=== PATIENT | male | born 1955 | race Caucasian/White ===

== ENCOUNTER 2016-05-01 02:26 | Inpatient (IN) ==
[2016-05-01] MEDS ORDERED: methylPREDNISolone SOD SUC 125 MG/2 ML VIAL IV STA (02:49)
[2016-05-01] MEDS ORDERED: SODIUM CHLORIDE 0.9% 500 ML IV STA (02:49)
[2016-05-01] MEDS ORDERED: LEVOFLOXACIN INJ 500 MG in PREMIX 1 EACH IV STA (02:49)
[2016-05-01] MEDS ORDERED: ALBUTEROL 2.5 MG/3 ML NEB RESP TX ONE (02:51)
[2016-05-01] MEDS ORDERED: LEVOFLOXACIN INJ 100 ML IV ONE (02:53)
--- NOTE | 2016-05-01 03:03 | Emergency Department Note ---
I, Leila Mclain, am scribing for, and in the presence of, Victoriano Alvarez MD 02:55. IAntonio Robert M, MD, personally performed the services described in this documentation, ascribed by Leila Mclain in my presence, and it is both accurate and complete . Arrival - Arrival Chief Complaint: Shortness of Breath Stated Complaint: COUGH ED Nursing Triage Note: PT ARRIVES VIA EMS WITH COMPLAINTS OF WAKING UP TONIGHT SOB AND FEELING LIKE HE CAN NOT COUGH UP MUCUS IN CHEST. STATES THAT HE HAS PAIN IN RIGHT SIDE OF CHEST FROM COUGH. PT RECENTLY TREATED AT [facility] FOR PNEUMONIA AND ACCORDING TO PT WAS TOLD BY DR. CABA TO COME DIRECTLY TO ED IF HE STARTED HAVING ANY TROUBLE. PT DENIES FEVER SINCE DISCHARGED FROM HOSPITAL. Mode of Arrival: Stretcher Limitations: No Limitations Source: Patient Time Seen by Provider: 05/01/16 02:45 - History of Present Illness HPI Narrative: Pt is a 60 y/o male that was brought to the ED via EMS with c/o SOB that occurred upon waking up this morning. Pt has associated sxs of cough with green mucus and difficulty talking. Pt reports he has a Hx of COPD. Pt states he thinks he may have pneumonia again. He reports he does have a nebulizer at home he uses. Pt's PCPs are Dr. Adair and Dr. Caba. Pt denies being a smoker. No other complaints/pain in ED. Onset (ago): hour(s) Consistency: constant Severity: moderate Severity scale (1-10): 5 Quality: other Allergies/Adverse Reactions: Allergies Allergy/AdvReac Type Severity Reaction Status Date / Time No Known Allergies Allergy Verified 04/13/16 04:42 Home Medications: Home Medications Medication Instructions Recorded Confirmed Type Albuterol Sulfate [Proair HFA] 2 puff INH Q4H PRN 04/13/16 05/01/16 History Aspirin [Ecotrin] 81 mg PO DAILY 04/13/16 05/01/16 History Montelukast Tab [Singulair Tab] 10 mg PO BID #60 tablet 04/13/16 05/01/16 Rx Theophylline ER Cap (24 Hr) 400 mg PO BID 04/13/16 05/01/16 History [Clint-24] Tiotropium Inhalation [Spiriva 18 mcg INH DAILY 04/13/16 05/01/16 History Handihaler] predniSONE TAB [PredniSONE] 20 mg PO BID 05/01/16 05/01/16 History Review of System - Review of System 12 point system: reviewed and no additional remarkable complaints except as stated - Review of System Constitutional: Absent: chills, fever Respiratory: Present: cough (cough with green mucus), other (SOB; difficult to talk) Cardiovascular: Absent: chest pain Gastrointestinal: Absent: abdominal pain, nausea, vomiting Skin: Absent: rash Neurological: Absent: headache Psychiatric: Absent: anxiety Medical,Surgical,& Family Hx - Medical History Cardio: History of: Hypertension Respiratory: History of: COPD - Social History Smoking Status: Former smoker Frequency of Alcohol Use: None Type of Drug Use: None Exam Vital Signs: Vital Signs Temperature 97.9 F 05/01/16 02:26 Pulse Rate 116 H 05/01/16 03:09 Respiratory Rate 26 H 05/01/16 03:09 Blood Pressure 134/76 05/01/16 03:08 O2 Sat by Pulse Oximetry 97 05/01/16 03:09 - General General appearance: alert, in no apparent distress - Head Head exam: Present: atraumatic, normocephalic - Eye Eye exam: Present: PERRL, EOMI - ENT ENT exam: Present: mucous membranes moist. Absent: mucous membranes dry - Neck Neck exam: Present: full ROM. Absent: tenderness - Chest Chest inspection: Present: symmetric chest wall rise, other (barrell chest). Absent: tenderness - Respiratory Respiratory exam: Present: wheezes (distant wheezes bilaterally), other (too tachypnic to talk) - Cardiovascular Cardiovascular exam: Present: regular rate, normal rhythm, normal heart sounds - Abdominal Exam Abdominal exam: Present: soft. Absent: tenderness - Extremities Exam Extremities exam: Present: full ROM. Absent: tenderness - Back Exam Back exam: Present: full ROM. Absent: tenderness - Neurological Exam Neurological exam: Present: alert, oriented X3, CN II-XII intact. Absent: motor sensory deficit - Psychiatric Psychiatric exam: Present: normal affect, normal mood - Skin Skin exam: Present: warm, dry Course - Consultations Consultation #1: Dr. Kishore Lanier will evaluate and admit the patient. Time: 03:29 Results - Labs CBC & BMP: 05/01/16 02:56 05/01/16 02:56 Lab Results: I have reviewed the patients labs Labs: Lab Results WBC 22.6 T/CUMM (4-12) H 05/01/16 02:56 RBC 4.61 MC/CUMM (3.8-5.5) 05/01/16 02:56 Hgb 14.5 GM/DL (14.0-18.0) 05/01/16 02:56 Hct 44.2 VOL% (42.0-52.0) 05/01/16 02:56 MCV 95.9 FL (87-102) 05/01/16 02:56 MCH 32 PG (27-34) 05/01/16 02:56 MCHC 32.8 GM/DL (32-36) 05/01/16 02:56 RDW 14.2 % (9.3-17.3) 05/01/16 02:56 Plt Count 320 T/CUMM (130-400) 05/01/16 02:56 MPV 8.8 FL (9.6-12.0) L 05/01/16 02:56 Neut % (Auto) 87.0 % (38.7-73.9) H 05/01/16 02:56 Lymph % (Auto) 4.3 % (21.2-54.2) L 05/01/16 02:56 Newton % (Auto) 7.3 % (1.7-12.7) 05/01/16 02:56 Eos % (Auto) 0.0 % (0.00-10.9) 05/01/16 02:56 Baso % (Auto) 0.2 % (0.0-0.8) 05/01/16 02:56 Neut # (Auto) 19.7 10*3/uL (1.4-7.4) H 05/01/16 02:56 Lymph # (Auto) 1.0 10*3/uL (1.4-4.0) L 05/01/16 02:56 Newton # (Auto) 1.6 10*3/uL (0.11-0.8) H 05/01/16 02:56 Eos # (Auto) 0.0 10*3/uL (0.0-0.87) 05/01/16 02:56 Baso # (Auto) 0.1 10*3/uL (0.0-0.2) 05/01/16 02:56 Immature Gran % 1.2 % 05/01/16 02:56 Nucleated RBC % 0.0 /100WBC 05/01/16 02:56 Immature Gran # 0.27 # 05/01/16 02:56 Nucleated RBCs # 0.00 10*3/uL 05/01/16 02:56 INR 1.1 05/01/16 02:56 PT Patient/Control Mix 11.3 SECS 05/01/16 02:56 Sodium 146 MMOL/L (136-145) H 05/01/16 02:56 Potassium 4.3 MMOL/L (3.5-5.1) 05/01/16 02:56 Chloride 108 MMOL/L (98-107) H 05/01/16 02:56 Carbon Dioxide 26 MMOL/L (21-32) 05/01/16 02:56 Anion Gap 16.3 MMOL/L (5.0-15.0) H 05/01/16 02:56 BUN 15 MG/DL (7-18) 05/01/16 02:56 Creatinine 0.90 MG/DL (0.70-1.30) 05/01/16 02:56 GFR Calculation 86 ML/MIN 05/01/16 02:56 BUN/Creatinine Ratio 16.00 RATIO (6.00-20.00) 05/01/16 02:56 Glucose 169 MG/DL (74-106) H 05/01/16 02:56 Calculated Osmolality 294.6 MOS/KG (273-304) 05/01/16 02:56 Calcium 9.0 MG/DL (8.5-10.1) 05/01/16 02:56 Total Bilirubin 0.40 MG/DL (0.2-1.0) 05/01/16 02:56 AST 15 U/L (0-37) 05/01/16 02:56 ALT 20 U/L (16-61) 05/01/16 02:56 Alkaline Phosphatase 79 U/L (45-117) 05/01/16 02:56 Total Protein 7.0 G/DL (6.4-8.3) 05/01/16 02:56 Albumin 3.2 G/DL (3.4-5.0) L 05/01/16 02:56 Globulin 3.8 G/DL (2.3-3.5) H 05/01/16 02:56 Albumin/Globulin Ratio 0.8 RATIO (1.1-2.2) L 05/01/16 02:56 ABG pH 7.395 (7.35-7.45) 05/01/16 03:00 ABG pCO2 45.1 MM HG (35-48) 05/01/16 03:00 ABG pO2 66.7 MM HG (80-95) L 05/01/16 03:00 ABG HCO3 26.2 MMOL/L (20-26) H 05/01/16 03:00 ABG Total CO2 23.8 MMOL/L (23-27) 05/01/16 03:00 ABG O2 Saturation 93.0 % (95-100) L 05/01/16 03:00 ABG Base Excess 2.2 MMOL/L (-2.5-2.5) 05/01/16 03:00 FiO2 28.00 PERCENT (0-100) 05/01/16 03:00 - EKG EKG results: interpreted by ERMD, WNL, sinus rhythm - Diagnostic Findings Procedure: Chest x-ray: image reviewed by me (lymph service changes. No specific parenchymal opacification) Disposition Clinical Impression: Acute exacerbation of chronic obstructive airways disease Case discussed with: patient Disposition: Still a Patient Condition: Stable Time of Disposition: 03:29
[2016-05-01] MEDS ORDERED: methylPREDNISolone SOD SUC 125 MG/2 ML VIAL ONE (03:05)
[2016-05-01 03:08] LABS: Basophils # 0.1 10*3/uL (0.0-0.2); Basophils % 0.2 % (0.0-0.8); Hematocrit 44.2 VOL% (42.0-52.0); Hemoglobin 14.5 GM/DL (14.0-18.0); Immature Granulocytes % 1.2 %; Immature Granulocytes Absolute 0.27 #; Lymphocytes % 4.3 % (21.2-54.2); Mean Corpuscular HGB Conc 32.8 GM/DL (32-36); Mean Corpuscular Hemoglobin 32 PG (27-34); Mean Corpuscular Volume 95.9 FL (87-102); Mean Platelet Volume 8.8 FL (9.6-12.0); Monocytes # 1.6 10*3/uL (0.11-0.8); Monocytes % 7.3 % (1.7-12.7); Neutrophils # 19.7 10*3/uL (1.4-7.4); Platelet Count 320 T/CUMM (130-400); Red Blood Count 4.61 MC/CUMM (3.8-5.5); Red Cell Distribution Width 14.2 % (9.3-17.3); White Blood Count 22.6 T/CUMM (4-12)
[2016-05-01 03:17] LABS: ABG Base Excess 2.2 MMOL/L (-2.5-2.5); ABG HCO3 26.2 MMOL/L (20-26); ABG PCO2 45.1 MM HG (35-48); ABG PH 7.395 (7.35-7.45); ABG PO2 66.7 MM HG (80-95); ABG TCO2 23.8 MMOL/L (23-27); Allen Test Positive
[2016-05-01 03:18] LABS: INR 1.1; PT Patient Result 11.3 SECS
[2016-05-01 03:26] LABS: Albumin 3.2 G/DL (3.4-5.0); Bilirubin,Total 0.4 MG/DL (0.2-1.0); Osmolality,Calculated 294.6 MOS/KG (273-304); Potassium 4.3 MMOL/L (3.5-5.1)
[2016-05-01 03:29] LABS: Lymphocytes 8 % (20-55); Segmented Neutrophils 84 % (50-85)
[2016-05-01 03:30] LABS: Platelet Estimate Normal
[2016-05-01 03:31] LABS: Total Cells Counted 100
[2016-05-01] MEDS ORDERED: ACETAMINOPHEN 325 MG TABLET PO PRN (03:37)
[2016-05-01] MEDS ORDERED: DOCUSATE SODIUM 100 MG CAPSULE PO PRN (03:37)
[2016-05-01] MEDS ORDERED: ONDANSETRON 4 MG/2 ML VIAL IV PRN (03:37)
[2016-05-01] MEDS ORDERED: ALBUTEROL 1.25 MG/3 ML NEB RESP TX PRN (03:47)
--- NOTE | 2016-05-01 03:59 | Hospitalist History & Physical ---
Assessment and Plan (1) Acute exacerbation of chronic obstructive airways disease Status: Acute Assessment and plan: Plan for this patient will be admitted to our service. We'll scheduled breathing treatments and IV steroids. Will get Dr. Neely to see him. We'll continue his home meds as appropriate. We'll also continue with antibiotics. Patient has had a recent pneumonia. Reevaluate patient in the morning just plans appropriate Current Visit: Yes History of Present Illness Chief complaint: shortness of breath History of present illness: Mr. Rosario is a 60 year old male with past medical history significant for COPD was in his normal state of health until earlier this evening. Patient had been at work and had been feeling generally short of breath but it wasn't too bad. He's been diagnosed COPD for approximately 18 years. He quit smoking 20 [address] ago[address] 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 According to the patient has had a recent pneumonia. Patient went to bed and when he got to go the bathroom he realized he couldn't catch his breath. Patient's checked his O2 sats was 86% on room air. She said this is low for him. She called EMS and they brought him up here for further evaluation. I was consulted to admit the patient Home Medications Medication Instructions Recorded Confirmed Type Albuterol Sulfate [Proair HFA] 2 puff INH Q4H PRN 04/13/16 05/01/16 History Aspirin [Ecotrin] 81 mg PO DAILY 04/13/16 05/01/16 History Montelukast Tab [Singulair Tab] 10 mg PO BID #60 tablet 04/13/16 05/01/16 Rx Theophylline ER Cap (24 Hr) 400 mg PO BID 04/13/16 05/01/16 History [Clint-24] Tiotropium Inhalation [Spiriva 18 mcg INH DAILY 04/13/16 05/01/16 History Handihaler] predniSONE TAB [PredniSONE] 20 mg PO BID 05/01/16 05/01/16 History Allergies Allergy/AdvReac Type Severity Reaction Status Date / Time No Known Allergies Allergy Verified 04/13/16 04:42 Medical,Surgical,& Family Hx - Medical History Cardio: History of: Hypertension Respiratory: History of: COPD - Surgical History Orthopedic Surgeries: Surgical HX of;: Orthopedic Surgery - Family History Family History: Reports;: Family Hypertension - Social History Smoking Status: Former smoker Frequency of Alcohol Use: None Type of Drug Use: None 12 point system: reviewed and no additional remarkable complaints except as stated Exam - Constitutional Vitals: Period Temp Pulse Resp BP Sys/Osman Pulse Ox Last 24 Hr 97.9 F-97.9 F 116-122 21-26 100-147/65-90 93-97 General appearance: under weight - Head Head exam: Present: normal inspection - Eye Eye exam: Present: EOMI Pupils: Present: KAVITA - ENT ENT exam: Present: normal exam - Respiratory Respiratory exam: Present: decreased breath sounds, prolonged expiratory phase. Absent: wheezes - Cardiovascular Cardiovascular exam: Present: tachycardia - GI/Abdominal GI/Abdominal exam: Present: normal bowel sounds - Extremities Exam Extremities exam: Present: normal inspection - Back Exam Back exam: Present: normal inspection - Neurological Exam Neurological exam: Present: alert, oriented X3 - Psychiatric Psychiatric exam: Present: normal affect, normal mood - Skin Skin exam: Present: normal color Results - Labs CBC & BMP: 05/01/16 02:56 05/01/16 02:56
--- NOTE | 2016-05-01 06:02 | XRay Report ---
Exam: XR chest 1V portable Date: 05/01/2016 2:50 AM Indication: Shortness of breath Comparison: 04/13/2016 Technical: AP portable Findings: Heart is normal in size. Patchy area of interstitial density present in the left base and right medial infrahilar region. Bony structures are intact. Dextroconvex leads are present. No pneumothorax present. Oxygen tubing and neck clips are also present superimposing exam and external cardiac leads Impression: 1. Patchy interstitial infiltrates in the bases bilaterally PROCEDURE INTERPRETED AT [facility] DEPARTMENT OF RADIOLOGY Final Report Signed by: Dr. Ayden Grace
[2016-05-01] MEDS ORDERED: ENOXAPARIN 40 MG/0.4 ML SYRINGE ONE (08:51)
[2016-05-01] MEDS ORDERED: methylPREDNISolone SOD SUC 40 MG/1 ML VIAL ONE (08:52)
[2016-05-01] MEDS ORDERED: ASPIRIN CHEW 81 MG TABLET PO ONE (08:52)
[2016-05-01] MEDS ORDERED: PANTOPRAZOLE 40 MG TABLET PO ONE (08:52)
[2016-05-01] MEDS: ENOXAPARIN 40 MG/0.4 ML SYRINGE SUBCUT SCH (08:57)
[2016-05-01] MEDS: ALBUTEROL/IPRATROPIUM 3 ML NEB RESP TX SCH ×3 (08:57→19:10)
[2016-05-01] MEDS: PANTOPRAZOLE 40 MG TABLET PO SCH (08:59)
[2016-05-01] MEDS: ASPIRIN EC 81 MG TABLET PO SCH (08:59)
[2016-05-01] MEDS: methylPREDNISolone SOD SUC 40 MG/1 ML VIAL IV SCH ×3 (09:01→20:48)
[2016-05-01] MEDS: THEOPHYLLINE ER (24 HR) 400 MG CAPSULE PO SCH ×2 (09:46→20:48)
[2016-05-01] MEDS: MONTELUKAST 10 MG TABLET PO SCH ×2 (09:47→20:49)
[2016-05-01] MEDS ORDERED: PHENOL 1.4% THROAT SPRAY 177 ML BOTTLE PO PRN (12:35)
--- NOTE | 2016-05-01 14:06 | Pulmonology Consult Note ---
History of Present Illness Chief complaint: Acute exacerbation of COPD. Acute pneumonia. History of present illness: Mr. Rosario is a 60 year old white male whom I been asked to see in pulmonary consultation for evaluation and treatment. This is a patient well-known to me. This year the patient's had 2 hospitalizations at [facility] in [place] by Dr. Adair. He has been seen twice in my office in the last month or so. He has had recurrent bronchitis and bronchospasm his sputum is green is hard to mobilize he also has a terrific cough. After his last visit to my office he said he cleared up and he did very well until he finished his antibiotics and then he had recurrent symptoms. 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 He denies dysphagia or reflux. He has had near syncope with standing up suddenly with this present illness. He has had no cardiac angina palpitations The remainder the review of systems is negative Allergies none Home medicines. See below Past history. COPD. Asthma. Chronic allergic sinusitis. Degenerative joint disease with arthritis in both knees. There is a past history of tobacco abuse. The patient stopped smoking in 2009. In the past he had a leukemoid reaction secondary to steroids. Family history. Positive high blood pressure and diabetes. Social history. Quit smoking in 2009. . Does not use alcohol. 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 His job requires he gets up at 1 AM daily. Chest x-ray. Small heart. Top normal pulmonary arteries. No hilar adenopathy. Mediastinum is normal. Lung mcleod are hyperinflated. There are increased interstitial markings in both bases probably early pneumonia ABGs on FiO2 28% shows a pH 7.395. PCO2 is 45. PO2 66.7. Bicarb is 26. Lab. Creatinine is 0.9. BUN is 15. Electrolytes are normal. Glucose is 169. Calcium alkaline phosphorus transaminases total bilirubin total protein are normal albumin is slightly low at 3.2 and globulins are slightly up at 3.8. White blood cell count is 22,600 with 87 segs. H&H is 14.5/44.2 with normal indices normal red blood cell distribution with. Platelets are 320,000. MPV is low at 8.8. Labs been reviewed. Medicines have been reviewed. Physical exam. Vital signs. See below Psychiatric. Oriented 3 Neurologic. Cranial nerves are intact. Long track motor function is intact. Gait is normal. Pupils irises sclera conjunctiva normal. Face is symmetrical. Salivary glands are normal. Nasal turbinates are congested. Lips and tongue are normal. Neck. Symmetrical. No meningismus. Lymphatics. No submandibular cervical or supraclavicular adenopathy. Chest. Hyperinflated. Pleuritic pain over the posterior left lower chest. Inspiratory squeaks in that area wheezes and squeaks over the left upper lung and over the right upper lung. Chest is hyperinflated with prolonged expiration. Heart. No gallop Abdomen. Positive bowel sounds Extremities. No edema. Nothing to suggest deep venous thrombophlebitis Skin of the face and hands showed no cancerous infectious lesions no other areas of the skin were examined. Musculoskeletal no gross abnormalities of the cervical thoracic lumbar spine. The remainder the physical exam is negative Impression. 1. Acute exacerbation of COPD/asthma. Refractory to outpatient treatment 2. Probable bibasilar bacterial pneumonia 3. High blood pressure 4. Degenerative joint disease 5. Past history tobacco abuse stopped smoking in 2009 Plan. 1. I agree with your medicines. 2. I have added Fortaz for additional gram-negative coverage since this is an outpatient treatment failure and the patient's had 2 hospitalizations in March of this year. 3. This patient probably has retention of secretions that he cannot mobilize. Once we get him over his bronchospasm and he becomes more stable he might very well benefit from bronchoscopy. I have discussed this with him and he is agreeable. 4. Sputum for Gram stain culture and sensitivity 5. Cold agglutinins 6. Legionella titer 7. Follow-up chest x-ray tomorrow 8. Agree with inhalation therapy. Will add Mucinex 600 p.o. twice daily. 9. See Home Medications Medication Instructions Recorded Confirmed Type Albuterol Sulfate [Proair HFA] 2 puff INH Q4H PRN 04/13/16 05/01/16 History Aspirin [Ecotrin] 81 mg PO DAILY 04/13/16 05/01/16 History Montelukast Tab [Singulair Tab] 10 mg PO BID #60 tablet 04/13/16 05/01/16 Rx Theophylline ER Cap (24 Hr) 400 mg PO BID 04/13/16 05/01/16 History [Clint-24] Tiotropium Inhalation [Spiriva 18 mcg INH DAILY 04/13/16 05/01/16 History Handihaler] Fluticasone/Salmeterol 500-50 1 puff INH BID 05/01/16 05/01/16 History [Advair 500-50] Ipratropium/Albuterol Inhaler 1 puff INH QID 05/01/16 05/01/16 History [Combivent Respimat Inhaler] predniSONE TAB [PredniSONE] 20 mg PO BID 05/01/16 05/01/16 History Allergies Allergy/AdvReac Type Severity Reaction Status Date / Time No Known Allergies Allergy Verified 04/13/16 04:42 Exam (Pulmonay) H&P - Constitutional Vitals: Period Temp Pulse Resp BP Sys/Osman Pulse Ox Last 24 Hr 99.3 F 89-112 18-26 100-136/65-88 95-98 Medical,Surgical,& Family Hx - Medical History Cardio: History of: Hypertension Respiratory: History of: COPD - Surgical History Abdominal Surgeries: Patient denies: Abdominal Surgery Orthopedic Surgeries: Surgical HX of;: Orthopedic Surgery - Family History Family History: Reports;: Family Hypertension - Social History Smoking Status: Former smoker Frequency of Alcohol Use: None Type of Drug Use: None Results - Labs CBC & BMP: 05/01/16 02:56 05/01/16 02:56 Quality Measures - Stroke Symptom Onset Unknown: No
--- NOTE | 2016-05-01 17:59 | EKG Report ---
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
[2016-05-02] MEDS: ALBUTEROL/IPRATROPIUM 3 ML NEB RESP TX SCH ×4 (00:10→19:30)
[2016-05-02] MEDS: methylPREDNISolone SOD SUC 40 MG/1 ML VIAL IV SCH ×4 (03:43→20:16)
[2016-05-02] MEDS: LEVOFLOXACIN INJ 750 MG in PREMIX 1 EACH IV SCH (06:02)
--- NOTE | 2016-05-02 07:38 | XRay Report ---
Exam: XR chest 2V Date: 05/02/2016 656 AM Indication: Cough shortness of breath pneumonia Comparison: 05/01/2016 Technical: AP portable Findings: Component of underlying COPD is present. Improving aeration is present in the infrahilar regions and basilar areas bilaterally. Scarring is present. Mediastinum is intact. There is bony demineralization of the thoracic spine with calcification in of the costochondral cartilage present. Impression: 1. COPD 2. No definite consolidating infiltrates are present. Mild scarring in the perihilar regions. The basilar regions have improved when compared to the previous study PROCEDURE INTERPRETED AT [facility] DEPARTMENT OF RADIOLOGY Final Report Signed by: Dr. Ayden Grace
--- NOTE | 2016-05-02 08:21 | Ultrasound Report ---
Exam: US abdomen Date:05/02/2016 659 AM Indication: Abdominal pain Comparison: None Findings: Liver: Approximately 14 cm. The hepatic and portal veins are patent. No focal abnormalities present. Gallbladder: No obvious stones. Small amount of pericholecystic fluid and gallbladder wall thickening is present. No discrete sludge within the gallbladder clearly seen however CBD: 3.4 mm Pancreas: Obscured Kidneys Right kidney: 10.0 x 4.2 x 5.3 cm no focal amounts is present. No hydronephrosis or perinephric fluid collections Left kidney: 10.1 x 5.4 x 4.1 cm with a 12 x 10 x 9.7 mm cyst suspected no hydronephrosis or perinephric fluid collection Aorta IVC: Obscured Spleen: 6.4 x 1.7 x 2.4 cm without abnormalities Ascites: None Impression: 1. Poor visualization of midline structures 2. Thickened gallbladder wall suggest the possibility of a cholecystitis 3. Tiny cyst left kidney The Ultrasound images were captured and stored. PROCEDURE INTERPRETED AT [facility] DEPARTMENT OF RADIOLOGY Final Report Signed by: Dr. Ayden Grace
[2016-05-02] MEDS: PANTOPRAZOLE 40 MG TABLET PO SCH (09:30)
[2016-05-02] MEDS: MONTELUKAST 10 MG TABLET PO SCH ×2 (09:30→20:17)
[2016-05-02] MEDS: THEOPHYLLINE ER (24 HR) 400 MG CAPSULE PO SCH ×2 (09:30→20:17)
[2016-05-02] MEDS: ASPIRIN EC 81 MG TABLET PO SCH (09:30)
[2016-05-02] MEDS: ENOXAPARIN 40 MG/0.4 ML SYRINGE SUBCUT SCH (09:30)
[2016-05-02 09:37] LABS: Basophils # 0.1 10*3/uL (0.0-0.2); Basophils % 0.2 % (0.0-0.8); Hematocrit 39.5 VOL% (42.0-52.0); Immature Granulocytes % 3.9 %; Immature Granulocytes Absolute 1.12 #; Lymphocytes # 0.8 10*3/uL (1.4-4.0); Lymphocytes % 2.8 % (21.2-54.2); Mean Corpuscular HGB Conc 32.9 GM/DL (32-36); Mean Corpuscular Hemoglobin 31 PG (27-34); Mean Corpuscular Volume 94.5 FL (87-102); Mean Platelet Volume 9.1 FL (9.6-12.0); Monocytes # 0.9 10*3/uL (0.11-0.8); Monocytes % 3.3 % (1.7-12.7); Neutrophils # 25.7 10*3/uL (1.4-7.4); Neutrophils % 89.8 % (38.7-73.9); Platelet Count 335 T/CUMM (130-400); Red Blood Count 4.18 MC/CUMM (3.8-5.5); Red Cell Distribution Width 14.1 % (9.3-17.3); White Blood Count 28.6 T/CUMM (4-12)
[2016-05-02 09:57] LABS: Band Neutrophils 1 % (0-10); Hypochromasia 1+; Lymphocytes 4 % (20-55); Segmented Neutrophils 94 % (50-85); Total Cells Counted 100
[2016-05-02 09:58] LABS: Platelet Estimate Normal
[2016-05-02 10:10] LABS: Alanine Aminotransferase 16 U/L (16-61); Albumin 2.8 G/DL (3.4-5.0); Alkaline Phosphatase 74 U/L (45-117); Aspartate Amino Transferase 11 U/L (0-37); Bilirubin,Total < 0.39 MG/DL (0.2-1.0); Blood Urea Nitrogen 13 MG/DL (7-18); Calcium 9.1 MG/DL (8.5-10.1); Glucose 129 MG/DL (74-106); Osmolality,Calculated 289.7 MOS/KG (273-304); Potassium 4.2 MMOL/L (3.5-5.1); Sodium 145 MMOL/L (136-145); Total Protein 6.6 G/DL (6.4-8.3)
[2016-05-02] MEDS: DOCUSATE SODIUM 100 MG CAPSULE PO SCH ×2 (11:10→20:17)
--- NOTE | 2016-05-02 11:25 | Pulmonology Progress Note ---
Pulmonary - PN: Subj Interval history: Steven Reed, ANP-BC, GNP-BC, acting as scribe for Dr. Ayden Schneider Mr. Rosario is a 60-year-old white male who was seen in initial pulmonary consultation on 05/01/2016. At that time, our impressions were: 1. Acute exacerbation of COPD/asthma. Refractory to outpatient treatment 2. Probable bibasilar bacterial pneumonia 3. High blood pressure 4. Degenerative joint disease 5. Past history tobacco abuse stopped smoking in 200905/02/2016. The patient was seen today along with his . At admission the patient had complaints of abdominal pain. The patient and his report that he has had abdominal pain after eating for the past several weeks. Ultrasound of the abdomen was done this morning and showed a thickened gallbladder wall suggesting the possibility of cholecystitis. We have consulted Dr. Ji for evaluation. We have also ordered a HIDA scan, amylase and lipase. He has had a long-term complaint of constipation. He states that his stools are hard and he has to strain to defecate. We will start Colace 100mg PO BID. He has had recurrent/unresolved pneumonia since March. Today we had a long discussion with the patient and his regarding the need for evaluation with bronchoscopy. They are agreeable, but he will most likely not be ready for this from a pulmonary standpoint until Saturday. We have tentatively scheduled it for Saturday at 0800. He complained about the cardiac diet this morning. Of note, he also complained of some orthostatic symptoms. We have changed his diet to a regular one as he consumes salt at home and this might symptomatically help his orthostasis. Medications have been reviewed. Labs have been reviewed. White count is 28,600 with 89.8% segs; H&H 13.0/39.5; PLT count 335,000; creatinine 0.80, BUN 13, electrolytes are normal; LFTs WNL Microbiology: One set of blood cultures is growing a gram positive cocci and is most likely a contaminant. Sputum gram stain showed few gram positive cocci, few gram negative rods, rare fungal elements, and rare gram positive rods. Culture, however, is not growing any organism thus far. Exam (Progress Note) - Constitutional Vitals: Period Temp Pulse Resp BP Sys/Osman Pulse Ox Last 24 Hr 97.8 F-99.3 F 81-96 18-20 100-129/70-81 95-99 Exam: Chest is hyperinflated with less wheeze; expiration is prolonged and somewhat incomplete Heart no gallop Abd is nontender to palpation and nondistended; BS positive x 4 Ext with nothing to suggest acute DVT Psych oriented x 3 Neuro long tract motor function is intact Plan: Consult Dr. Ji regarding the patient's US. HIDA scan, amylase, and lipase. Theophylline level in the morning. Change to a regular diet. Have tentatively scheduled him for FOB on 05/04/16 at 0800. Colace 100mg PO BID. See orders. Results - Labs CBC & BMP: 05/02/16 09:15 05/02/16 09:15
--- NOTE | 2016-05-02 11:46 | Gastrointestinal Consult Note ---
<Hanna Chappell - Last Filed: 05/02/16 11:40> Assessment and Plan (1) Abdominal pain Status: Acute Assessment and plan: 05/02-Several month hx of abd pain, with nausea. Also reports early satiety with eating, constipation, and dark stools at times. US of abdomen noted for possible cholecystitis. HIDA pending for the morning. LFTs WNL. No reports of stones, sludge on imaging. Plan and addendum to follow by Dr Ji. Current Visit: Yes History of Present Illness Chief complaint: Abd pain, early satiety History of present illness: Mr. Rosario is a 60 year old male who presented to the hospital with SOB. Pt has a history of COPD and has had reoccurring pneumonia per patient. He states that his SOB seemed to worsen this week and presented to the ER for evaluation. Pt states that he has also had some abdominal pain. States he has had this off and on for several months however it has become more frequent and intense the last several weeks. States the pain is in the RUQ and does not radiate. He has associated nausea with this but no vomiting. He has days when he has a good appetite and seems to eat fairly well and other days he doesnt want to eat at all. He also has some complaints of early satiety. States he eats 3-4 bites and feels like he is full denying any problems with swallowing or pain with swallowing. States he has never had endoscopy in the past. He states he has noted that his stools have been dark at times however states they will return to normal and then back to dark. He denies any NSAID use. States he has had some weight loss, approximately 20 pounds but states this has been over a long period of time and relates this to his COPD more so. He has had some problems with constipation as well. He was found on admission on US to have thickened gallbladder wall with possibility of cholecystitis with no stones or sludge, CBD 3.4mm. He is noted to have normal LFTs. He is scheduled for HIDA scan tomorrow and a FOB on saturday. Lipase is 91. Home Medications Medication Instructions Recorded Confirmed Type Albuterol Sulfate [Proair HFA] 2 puff INH Q4H PRN 04/13/16 05/01/16 History Aspirin [Ecotrin] 81 mg PO DAILY 04/13/16 05/01/16 History Montelukast Tab [Singulair Tab] 10 mg PO BID #60 tablet 04/13/16 05/01/16 Rx Theophylline ER Cap (24 Hr) 400 mg PO BID 04/13/16 05/01/16 History [Clint-24] Tiotropium Inhalation [Spiriva 18 mcg INH DAILY 04/13/16 05/01/16 History Handihaler] Fluticasone/Salmeterol 500-50 1 puff INH BID 05/01/16 05/01/16 History [Advair 500-50] Ipratropium/Albuterol Inhaler 1 puff INH QID 05/01/16 05/01/16 History [Combivent Respimat Inhaler] predniSONE TAB [PredniSONE] 20 mg PO BID 05/01/16 05/01/16 History Allergies Allergy/AdvReac Type Severity Reaction Status Date / Time No Known Allergies Allergy Verified 04/13/16 04:42 Medical,Surgical,& Family Hx - Medical History Cardio: History of: Hypertension Respiratory: History of: COPD - Surgical History Abdominal Surgeries: Patient denies: Abdominal Surgery Orthopedic Surgeries: Surgical HX of;: Orthopedic Surgery - Family History Family History: Reports;: Family Hypertension - Social History Smoking Status: Former smoker Frequency of Alcohol Use: None Type of Drug Use: None 12 point system: reviewed and no additional remarkable complaints except as stated - Constitutional Constitutional: Present: as per HPI, weight loss - EENT Eyes: Present: as per HPI Ears: Present: as per HPI Nose, mouth and throat: Present: as per HPI - Cardiovascular Cardiovascular: Present: as per HPI - Respiratory Respiratory: Present: as per HPI, dyspnea - Gastrointestinal Gastrointestinal: Present: as per HPI, abdominal pain, constipation, early satiety, nausea - Genitourinary Genitourinary: Present: as per HPI - Musculoskeletal Musculoskeletal: Present: as per HPI - Neurological Neurological: Present: as per HPI - Psychiatric Psychiatric: Present: as per HPI - Endocrine Endocrine: Present: as per HPI - Hematologic/Lymphatic Hematologic/Lymphatic: Present: as per HPI Exam - Constitutional Vitals: Period Temp Pulse Resp BP Sys/Osman Pulse Ox Last 24 Hr 97.8 F-99.3 F 81-96 18-20 110-129/70-81 95-99 General appearance: normal weight, no acute distress - Head Head exam: Present: normal inspection, normocephalic - Eye Eye exam: Present: other (lids and conjuncitva unremarkable). Absent: scleral icterus - ENT ENT exam: Present: normal exam, normal oropharynx - Neck Neck exam: Present: normal inspection - Respiratory Respiratory exam: Present: clear to auscultation bilaterally. Absent: rales, rhonchi, wheezes - Cardiovascular Cardiovascular exam: Present: regular rate and rhythm. Absent: diastolic murmur , JVD, systolic murmur - GI/Abdominal GI/Abdominal exam: Present: normal bowel sounds, soft. Absent: ascites, distended, mass, organomegaly, tenderness - Extremities Exam Extremities exam: Present: normal inspection, full ROM - Back Exam Back exam: Present: normal inspection - Neurological Exam Neurological exam: Present: alert, oriented X3 - Psychiatric Psychiatric exam: Present: normal affect, normal mood - Skin Skin exam: Present: normal color, warm, dry Results - Labs CBC & BMP: 05/02/16 09:15 05/02/16 09:15 Lab Results: I have reviewed the past 24 hour labs - Diagnostic Findings Procedure: Ultrasound: report reviewed by me Quality Measures - Stroke Symptom Onset Unknown: No <Trey Ji - Last Filed: 05/02/16 18:31> History of Present Illness History of present illness: Mr. Rosario is a 60 year old male Exam - Constitutional Vitals: Period Temp Pulse Resp BP Sys/Osman Pulse Ox Last 24 Hr 96.7 F-98.6 F 75-105 18-20 118-132/70-81 95-99 Results - Labs CBC & BMP: 05/02/16 09:15 05/02/16 09:15
[2016-05-02] MEDS ORDERED: ACETAMINOPHEN/diphenhydrAMINE 500-25 MG TABLET PO PRN (17:30)
--- NOTE | 2016-05-02 17:33 | Hospitalist Progress Note ---
Hospitalist: Subjective Interval history: Patient reports he is feeling still feeling tight in his chest. He does have a dry cough. He denies any chest pain. He is tolerating some oral intake. He denies any nausea or vomiting. Exam - Constitutional Vitals: Period Temp Pulse Resp BP Sys/Osman Pulse Ox Last 24 Hr 96.7 F-98.6 F 75-105 18-20 118-132/70-81 95-99 General appearance: no acute distress (Ill-appearing but nontoxic, frail) - Head Head exam: Present: normal inspection, normocephalic - Eye Eye exam: Present: EOMI. Absent: conjunctival injection, scleral icterus Pupils: Present: KAVITA - ENT ENT exam: Present: normal exam - Neck Neck exam: Present: normal inspection. Absent: lymphadenopathy, thyromegaly - Respiratory Respiratory exam: Present: decreased breath sounds, prolonged expiratory phase, wheezes, other (Fair air entry and speaking in phrases.) - Cardiovascular Cardiovascular exam: Present: regular rate and rhythm. Absent: diastolic murmur , JVD, systolic murmur - GI/Abdominal GI/Abdominal exam: Present: normal bowel sounds, soft. Absent: mass, organomegaly, tenderness - Extremities Exam Extremities exam: Present: normal inspection, normal capillary refill. Absent: calf tenderness, edema - Neurological Exam Neurological exam: Present: alert, oriented X3 - Psychiatric Psychiatric exam: Present: agitated - Skin Skin exam: Present: normal color, warm, dry Results - Labs CBC & BMP: 05/02/16 09:15 05/02/16 09:15 Labs: Blood cultures 1 out of 2 are growing gram-positive cocci in clumps. - Impressions * Acute COPD exacerbation-continue IV antibiotics, bronchodilators, IV steroids. Add Mucomyst aerosols. Pulmonology following * Hypoxia-oxygen as needed. Wean as tolerated. Plans for bronchoscopy on Saturday * Positive blood cultures 1/2 gram-positive cocci-add Cleocin. Follow-up blood culture. * Reported abdominal pain and possible cholecystitis-HIDA scan in a.m. Continue antibiotics empirically. Discussed with patient, , and nursing staff. All questions answered. Quality Measures - Stroke Symptom Onset Unknown: No
[2016-05-02] MEDS: CLINDAMYCIN INJ 600 MG in PREMIX 1 EACH IV SCH (17:57)
[2016-05-02] MEDS: ACETYLCYSTEINE 20% 800 MG/4 ML VIAL RESP TX SCH (19:30)
[2016-05-03] MEDS: ALBUTEROL/IPRATROPIUM 3 ML NEB RESP TX SCH ×4 (00:24→20:25)
[2016-05-03] MEDS: ACETYLCYSTEINE 20% 800 MG/4 ML VIAL RESP TX SCH ×4 (00:25→20:23)
[2016-05-03] MEDS: ZALEPLON 5 MG CAPSULE PO PRN (01:17)
[2016-05-03] MEDS: CLINDAMYCIN INJ 600 MG in PREMIX 1 EACH IV SCH ×3 (01:17→16:34)
[2016-05-03] MEDS: methylPREDNISolone SOD SUC 40 MG/1 ML VIAL IV SCH ×4 (03:18→21:16)
[2016-05-03] MEDS: LEVOFLOXACIN INJ 750 MG in PREMIX 1 EACH IV SCH (06:15)
--- NOTE | 2016-05-03 08:11 | Nuclear Medicine Report ---
Exam: NM hepatobiliary Date: 05/03/2016 Indication: Abnormal ultrasound of the abdomen Comparison: Abdomen sonogram 05/02/2016 Findings: The patient was given 5 mCi of technetium and Choletec and 8 ounces of ensure were administered. The patient has visualization of the gallbladder and the bile duct in the small intestine. The exam reveals normal washout with an ejection fraction of 83% at 20 minutes. Impression: 1. Normal hepatobiliary imaging PROCEDURE INTERPRETED AT [facility] DEPARTMENT OF RADIOLOGY Final Report Signed by: Dr. Ayden Grace
--- NOTE | 2016-05-03 08:43 | Gastrointestinal Progress Note ---
<Hanna Chappell Efrain - Last Filed: 05/03/16 08:41> Assessment and Plan (1) Abdominal pain Status: Acute Assessment and plan: 05/03-No abd pain at present time. HIDA negative. Continues with dysphagia. Plan and addendum to follow by DR Ji. 05/02-Several month hx of abd pain, with nausea. Also reports early satiety with eating, constipation, and dark stools at times. US of abdomen noted for possible cholecystitis. HIDA pending for the morning. LFTs WNL. No reports of stones, sludge on imaging. Plan and addendum to follow by Dr Ji. Current Visit: Yes Gastroenterology - PN: Subj Interval history: CC: Abd pain Pt is seen sitting up on side of bed. He is somewhat agitated this morning. HIDA scan results noted to show no abnormality. He states he is still having some difficulty with swallowing at this time. Abdomen is soft, nontender. He is tentatively scheduled for FOB tomorrow morning. ROS: Denies SOB or chest pain Exam (Progress Note) - Constitutional Vitals: Period Temp Pulse Resp BP Sys/Osman Pulse Ox Last 24 Hr 96.7 F-98.4 F 75-108 18-20 118-144/70-85 94-99 General appearance: normal weight, no acute distress - Head Head exam: Present: normal inspection, normocephalic - Eye Eye exam: Present: other (lids and conjunctiva unremarkable). Absent: scleral icterus - ENT ENT exam: Present: normal exam, normal oropharynx - Neck Neck exam: Present: normal inspection - Respiratory Respiratory exam: Present: clear to auscultation bilaterally. Absent: rales, rhonchi, wheezes - Cardiovascular Cardiovascular exam: Present: regular rate and rhythm. Absent: diastolic murmur , JVD, systolic murmur - GI/Abdominal GI/Abdominal exam: Present: normal bowel sounds, soft. Absent: ascites, distended, mass, organomegaly, tenderness - Extremities Exam Extremities exam: Present: normal inspection, full ROM - Back Exam Back exam: Present: normal inspection - Neurological Exam Neurological exam: Present: alert, oriented X3 - Psychiatric Psychiatric exam: Present: normal affect, normal mood - Skin Skin exam: Present: normal color, warm, dry Results - Labs CBC & BMP: 03/01/17 09:15 05/02/16 09:15 Lab Results: I have reviewed the past 24 hour labs <Trey Ji - Last Filed: 05/03/16 17:34> Exam (Progress Note) - Constitutional Vitals: Period Temp Pulse Resp BP Sys/Osman Pulse Ox Last 24 Hr 97.2 F-98.4 F 78-108 18-20 119-144/72-88 94-99 Results - Labs CBC & BMP: 05/02/16 09:15 05/02/16 09:15
[2016-05-03] MEDS: THEOPHYLLINE ER (24 HR) 400 MG CAPSULE PO SCH ×2 (08:49→21:17)
[2016-05-03] MEDS: PANTOPRAZOLE 40 MG TABLET PO SCH (08:49)
[2016-05-03] MEDS: DOCUSATE SODIUM 100 MG CAPSULE PO SCH ×2 (08:50→21:17)
[2016-05-03] MEDS: MONTELUKAST 10 MG TABLET PO SCH ×2 (08:50→21:17)
[2016-05-03] MEDS: ASPIRIN EC 81 MG TABLET PO SCH (08:50)
[2016-05-03] MEDS: ENOXAPARIN 40 MG/0.4 ML SYRINGE SUBCUT SCH (08:55)
--- NOTE | 2016-05-03 11:14 | Pulmonology Progress Note ---
Pulmonary - PN: Subj Interval history: Steven Reed, ANP-BC, GNP-BC, acting as scribe for Dr. Ayden Schneider Mr. Rosario is a 60-year-old white male who was seen in initial pulmonary consultation on 05/01/2016. At that time, our impressions were: 1. Acute exacerbation of COPD/asthma. Refractory to outpatient treatment 2. Probable bibasilar bacterial pneumonia 3. High blood pressure 4. Degenerative joint disease 5. Past history tobacco abuse stopped smoking in 200905/02/2016. The patient was seen today along with his . At admission the patient had complaints of abdominal pain. The patient and his report that he has had abdominal pain after eating for the past several weeks. Ultrasound of the abdomen was done this morning and showed a thickened gallbladder wall suggesting the possibility of cholecystitis. We have consulted Dr. Ji for evaluation. We have also ordered a HIDA scan, amylase and lipase. He has had a long-term complaint of constipation. He states that his stools are hard and he has to strain to defecate. We will start Colace 100mg PO BID. He has had recurrent/unresolved pneumonia since March. Today we had a long discussion with the patient and his regarding the need for evaluation with bronchoscopy. They are agreeable, but he will most likely not be ready for this from a pulmonary standpoint until Saturday. We have tentatively scheduled it for Saturday at 0800. He complained about the cardiac diet this morning. Of note, he also complained of some orthostatic symptoms. We have changed his diet to a regular one as he consumes salt at home and this might symptomatically help his orthostasis. 05/03/16. The patient was seen today along with his and Divya Pimentel RN. The patient's HIDA scan was normal with an EF of 83% at 20 minutes. Again, his abdominal US showed a thickened gallbladder wall and he has had pain after eating for the several weeks at minimum. He also has complained of dysphagia. We will see what Dr. Ji feels is warranted at this time with regard to these issues. The patient's pulmonary status has improved to the point where we can safely proceed with FOB in the morning. Orders have been put into the EMR. Sputum is only growing a yeast. This will be treated with Diflucan. Medications have been reviewed. Diflucan was added today. The patient is on Levaquin 750 mg daily and Cleocin 600 mg every 8 hours. He is also on Solu- Medrol 40 mg IV every 6 hours. Labs have been reviewed. Theophylline level is 15.9. Microbiology: One set of blood cultures is growing a gram positive cocci and is most likely a contaminant. Sputum gram stain showed few gram positive cocci, few gram negative rods, rare fungal elements, and rare gram positive rods. Culture, however, is only growing yeast. Exam (Progress Note) - Constitutional Vitals: Period Temp Pulse Resp BP Sys/Osman Pulse Ox Last 24 Hr 96.7 F-98.4 F 75-108 18-20 118-144/70-85 94-99 Exam: Chest is hyperinflated with less wheeze; expiration is prolonged and somewhat incomplete Heart no gallop Abd is nontender to palpation and nondistended; BS positive x 4 Ext with nothing to suggest acute DVT Psych oriented x 3 Neuro long tract motor function is intact Plan: Proceed with fiberoptic bronchoscopy in the morning. Orders are in the EMR. Theophylline level in the morning. Follow-up Dr. Ji's recommendations regarding the patient's right upper quadrant pain and reported dysphasia. See orders. Results - Labs CBC & BMP: 05/02/16 09:15 05/02/16 09:15
[2016-05-03] MEDS: FLUCONAZOLE 200 MG TABLET PO SCH (11:58)
--- NOTE | 2016-05-03 16:52 | Hospitalist Progress Note ---
Hospitalist: Subjective Interval history: Patient very frustrated about only receiving 2 breathing treatments so far today. He had a HIDA scan done and it was unremarkable. He reports the cough is better but still has chest burning with a cough. He denies any emesis. He is tolerating some p.o. He denies any abdominal pain. Patient reports a bowel movement but denies any diarrhea or constipation. No fever. Exam - Constitutional Vitals: Period Temp Pulse Resp BP Sys/Osman Pulse Ox Last 24 Hr 97.2 F-98.4 F 78-108 18-20 119-144/72-88 94-99 General appearance: other (Thin male with mild respiratory distress, speaking in phrases and mild abdominal retractions) - Head Head exam: Present: normal inspection - Eye Eye exam: Absent: conjunctival injection, scleral icterus Pupils: Present: KAVITA - Respiratory Respiratory exam: Present: accessory muscle use, decreased breath sounds, prolonged expiratory phase - Cardiovascular Cardiovascular exam: Present: regular rate and rhythm. Absent: diastolic murmur , systolic murmur - GI/Abdominal GI/Abdominal exam: Present: normal bowel sounds, soft. Absent: distended, tenderness - Extremities Exam Extremities exam: Present: normal inspection, normal capillary refill, other ( No clubbing). Absent: edema - Neurological Exam Neurological exam: Present: alert, oriented X3 - Psychiatric Psychiatric exam: Present: agitated - Skin Skin exam: Present: warm, dry Results - Labs CBC & BMP: 05/02/16 09:15 05/02/16 09:15 - Impressions - Impressions * Acute COPD exacerbation-continue IV antibiotics, bronchodilators, IV steroids. Continue Mucomyst aerosols. Pulmonology following. Plans for bronchoscopy on 05/04/2016 * Hypoxia-oxygen as needed. Wean as tolerated. Plans for bronchoscopy in a.m. * Positive blood cultures 1/2 gram-positive cocci-likely contaminant. Continue Cleocin. Follow-up blood culture. * Reported abdominal pain and possible cholecystitis-HIDA scan negative. Symptoms have resolved. continue antibiotics empirically. Discussed with patient, and nursing staff. All questions answered. Quality Measures - Stroke Symptom Onset Unknown: No
[2016-05-04] MEDS: ACETYLCYSTEINE 20% 800 MG/4 ML VIAL RESP TX SCH ×4 (00:53→19:19)
[2016-05-04] MEDS: ALBUTEROL/IPRATROPIUM 3 ML NEB RESP TX SCH ×4 (00:53→19:19)
[2016-05-04] MEDS: CLINDAMYCIN INJ 600 MG in PREMIX 1 EACH IV SCH ×3 (02:21→17:17)
[2016-05-04] MEDS: methylPREDNISolone SOD SUC 40 MG/1 ML VIAL IV SCH ×5 (02:44→20:52)
[2016-05-04] MEDS: LEVOFLOXACIN INJ 750 MG in PREMIX 1 EACH IV SCH (05:47)
[2016-05-04 06:19] LABS: Basophils # 0.1 10*3/uL (0.0-0.2); Basophils % 0.1 % (0.0-0.8); Hematocrit 39.4 VOL% (42.0-52.0); Hemoglobin 13.1 GM/DL (14.0-18.0); Lymphocytes # 0.9 10*3/uL (1.4-4.0); Lymphocytes % 2.7 % (21.2-54.2); Mean Corpuscular HGB Conc 33.2 GM/DL (32-36); Mean Corpuscular Hemoglobin 32 PG (27-34); Mean Corpuscular Volume 94.9 FL (87-102); Mean Platelet Volume 9.2 FL (9.6-12.0); Monocytes # 1.1 10*3/uL (0.11-0.8); Monocytes % 3.2 % (1.7-12.7); Neutrophils # 30.1 10*3/uL (1.4-7.4); Platelet Count 353 T/CUMM (130-400); Red Blood Count 4.15 MC/CUMM (3.8-5.5); Red Cell Distribution Width 14.2 % (9.3-17.3)
[2016-05-04 06:29] LABS: INR 1.1; PT Patient Result 11.4 SECS; Partial Thromboplastin Time 24.4 SECS (0-40)
[2016-05-04 06:42] LABS: Hypochromasia 1+; Lymphocytes 4 % (20-55); Platelet Estimate Adequate; Segmented Neutrophils 95 % (50-85); Total Cells Counted 100
[2016-05-04] MEDS ORDERED: LIDOCAINE 2% VISCOUS 100 ML BOTTLE SWISH/SPIT ONE (07:00)
[2016-05-04] MEDS ORDERED: BENZONATATE 100 MG CAPSULE PO ONE (07:00)
[2016-05-04] MEDS ORDERED: diphenhydrAMINE 50 MG/1 ML VIAL IM ONE (07:00)
[2016-05-04] MEDS ORDERED: LIDOCAINE 1% 20 ML VIAL MISC INJ ONE (07:00)
[2016-05-04] MEDS ORDERED: LIDOCAINE 4% TOP SOLN 50 ML BOTTLE RESP TX ONE (07:00)
[2016-05-04] MEDS ORDERED: MEPERIDINE 50 MG/1 ML VIAL IM ONE (07:00)
--- NOTE | 2016-05-04 08:38 | Gastrointestinal Progress Note ---
<KiranradhaHanna Efrain - Last Filed: 05/04/16 08:36> Assessment and Plan (1) Abdominal pain Status: Acute Assessment and plan: 05/04-Continued dysphagia, abd pain better. Tentative plan for EGD on Saturday if still inpatient and resp status is improved. Plan and addendum to follow by DR Ji. 05/03-No abd pain at present time. HIDA negative. Continues with dysphagia. Plan and addendum to follow by DR Ji. 05/02-Several month hx of abd pain, with nausea. Also reports early satiety with eating, constipation, and dark stools at times. US of abdomen noted for possible cholecystitis. HIDA pending for the morning. LFTs WNL. No reports of stones, sludge on imaging. Plan and addendum to follow by Dr Ji. Current Visit: Yes Gastroenterology - PN: Subj Interval history: CC: Dysphagia, abd pain Pt is seen, awaiting FOB this morning. States his breathing is about the same. He also has continued dysphagia reports. Abdomen is soft, nontender. He denies any nausea or vomiting. Will followup after FOB and if pt remains in over the weekend and resp status improves we can proceed tentatively with EGD Saturday. ROS: Denies SOB or chest pain Exam (Progress Note) - Constitutional Vitals: Period Temp Pulse Resp BP Sys/Osman Pulse Ox Last 24 Hr 97.3 F-98.4 F 78-103 16-20 123-136/81-88 93-100 General appearance: normal weight, no acute distress - Head Head exam: Present: normal inspection, normocephalic - Eye Eye exam: Present: other (lids and conjunctiva unremarakble). Absent: scleral icterus - ENT ENT exam: Present: normal exam, normal oropharynx - Neck Neck exam: Present: normal inspection - Respiratory Respiratory exam: Present: clear to auscultation bilaterally. Absent: rales, rhonchi, wheezes - Cardiovascular Cardiovascular exam: Present: regular rate and rhythm. Absent: diastolic murmur , JVD, systolic murmur - GI/Abdominal GI/Abdominal exam: Present: normal bowel sounds, soft. Absent: ascites, distended, mass, organomegaly, tenderness - Extremities Exam Extremities exam: Present: normal inspection, full ROM - Back Exam Back exam: Present: normal inspection - Neurological Exam Neurological exam: Present: alert, oriented X3 - Psychiatric Psychiatric exam: Present: normal affect, normal mood - Skin Skin exam: Present: normal color, warm, dry Results - Labs CBC & BMP: 05/04/16 05:18 05/02/16 09:15 Lab Results: I have reviewed the past 24 hour labs <Trey Ji - Last Filed: 05/04/16 15:05> Exam (Progress Note) - Constitutional Vitals: Period Temp Pulse Resp BP Sys/Osman Pulse Ox Last 24 Hr 97.3 F-98.4 F 70-109 12-24 123-183/80-131 93-100 Results - Labs CBC & BMP: 05/04/16 05:18 05/02/16 09:15
[2016-05-04] MEDS: FLUCONAZOLE 200 MG TABLET PO SCH (09:40)
[2016-05-04] MEDS: MONTELUKAST 10 MG TABLET PO SCH ×2 (09:40→20:52)
[2016-05-04] MEDS: DOCUSATE SODIUM 100 MG CAPSULE PO SCH ×2 (09:40→20:52)
[2016-05-04] MEDS: PANTOPRAZOLE 40 MG TABLET PO SCH (09:40)
[2016-05-04] MEDS: ASPIRIN EC 81 MG TABLET PO SCH (09:41)
[2016-05-04] MEDS: THEOPHYLLINE ER (24 HR) 400 MG CAPSULE PO SCH ×2 (09:41→20:52)
[2016-05-04] MEDS: ENOXAPARIN 40 MG/0.4 ML SYRINGE SUBCUT SCH (09:45)
--- NOTE | 2016-05-04 11:05 | Pulmonology Progress Note ---
Pulmonary - PN: Subj Interval history: Steven Reed, ANP-BC, GNP-BC, acting as scribe for Dr. Ayden Schneider Mr. Rosario is a 60-year-old white male who was seen in initial pulmonary consultation on 05/01/2016. At that time, our impressions were: 1. Acute exacerbation of COPD/asthma. Refractory to outpatient treatment 2. Probable bibasilar bacterial pneumonia 3. High blood pressure 4. Degenerative joint disease 5. Past history tobacco abuse stopped smoking in 200905/02/2016. The patient was seen today along with his . At admission the patient had complaints of abdominal pain. The patient and his report that he has had abdominal pain after eating for the past several weeks. Ultrasound of the abdomen was done this morning and showed a thickened gallbladder wall suggesting the possibility of cholecystitis. We have consulted Dr. Ji for evaluation. We have also ordered a HIDA scan, amylase and lipase. He has had a long-term complaint of constipation. He states that his stools are hard and he has to strain to defecate. We will start Colace 100mg PO BID. He has had recurrent/unresolved pneumonia since March. Today we had a long discussion with the patient and his regarding the need for evaluation with bronchoscopy. They are agreeable, but he will most likely not be ready for this from a pulmonary standpoint until Saturday. We have tentatively scheduled it for Saturday at 0800. He complained about the cardiac diet this morning. Of note, he also complained of some orthostatic symptoms. We have changed his diet to a regular one as he consumes salt at home and this might symptomatically help his orthostasis. 05/03/16. The patient was seen today along with his and Divya Pimentel RN. The patient's HIDA scan was normal with an EF of 83% at 20 minutes. Again, his abdominal US showed a thickened gallbladder wall and he has had pain after eating for the several weeks at minimum. He also has complained of dysphagia. We will see what Dr. Ji feels is warranted at this time with regard to these issues. The patient's pulmonary status has improved to the point where we can safely proceed with FOB in the morning. Orders have been put into the EMR. Sputum is only growing a yeast. This will be treated with Diflucan. 05/04/16. The patient underwent a fiberoptic bronchoscopy earlier today by Dr. Schneider. He tolerated the procedure well. Please see the fiberoptic bronchoscopy event note for more information. Patient's been seen in GI consultation by Dr. Ji. He is tentatively planned for an EGD on Saturday. The one set of positive blood cultures have grown methicillin-resistant staph epidermidis. Medications have been reviewed. The patient is on Levaquin 750 mg daily and Cleocin 600 mg every 8 hours. He is also on Solu-Medrol 40 mg IV every 6 hours. We made no changes today. Labs have been reviewed. Theophylline level is 16.6. White count is 35,000 with 86.0% segs; H&H 13.1/39.4; platelet count 353,000; INR 1.1 Microbiology: One set of blood cultures has grown MRSE and is most likely a contaminant. Sputum gram stain showed few gram positive cocci, few gram negative rods, rare fungal elements, and rare gram positive rods. Culture, however, has only grown Maria G albicans. Exam (Progress Note) - Constitutional Vitals: Period Temp Pulse Resp BP Sys/Osman Pulse Ox Last 24 Hr 97.3 F-98.4 F 70-109 12-24 123-183/80-131 93-100 Exam: Chest is hyperinflated with less wheeze; expiration is prolonged Heart no gallop Abd is nontender to palpation and nondistended; BS positive x 4 Ext with nothing to suggest acute DVT Psych oriented x 3 Neuro long tract motor function is intact Plan: Continue present treatment. Follow-up bronchoscopy results. Note, the patient is tentatively scheduled for an EGD on Saturday as per Dr. Ji. See orders. Results - Labs CBC & BMP: 05/04/16 05:18 05/02/16 09:15
--- NOTE | 2016-05-04 11:11 | Event Note ---
In hospital diagnostic and therapeutic fiberoptic bronchoscopy. Bilateral specimens were sent for cytology, Gram stain, bacterial culture, AFB stains and culture, fungal stains and culture. This is a 60-year-old white male with emphysema and COPD who has had 2 hospitalizations this year and multiple outpatient visits. He is an outpatient treatment failure. He has had bilateral pneumonia. This is cleared. He has intractable cough. This felt that he probably has a good bit of retention of sputum and sputum plugging. For these reasons she is evaluated with fiberoptic bronchoscopy. He is also a former smoker. The vocal cords were normal. Trachea was normal the judy was sharp the patient's bronchi were only minimally collapsible and this included the large and small bronchi. This was unexpected. He had retained secretions in both mainstem bronchus 6 bronchi extending into all 5 lobes of the lung. Every lobe was carefully suctioned and sometimes lavaged and specimens were collected and sent for the studies mentioned above. There were no endobronchial lesions to suggest a cancer. Patient tolerated procedure well and there were no complications. Impression. 1. Bibasilar pneumonia resolved. 2. Emphysema with hypoxemia 3. COPD with bronchospastic disease 4. Retained secretions but the patient could not expectorate although historically he has had a very good cough. 5. Hypoxemia. Plan 1. Check bronchoscopy specimens 2. Continue present regimen.
--- NOTE | 2016-05-04 15:10 | Hospitalist Progress Note ---
Hospitalist: Subjective Interval history: Patient had bronchoscopy earlier today and tolerated it well. He reports that he is breathing easier after having the bronchoscopy. Cough is mildly productive. He denies any chest pain. He ate all of his meal today per his . No abdominal pain. No bowel movements reported. Exam - Constitutional Vitals: Period Temp Pulse Resp BP Sys/Osman Pulse Ox Last 24 Hr 97.3 F-98.4 F 70-109 12-24 123-183/80-131 93-100 General appearance: no acute distress - Head Head exam: Present: normal inspection - Cardiovascular Cardiovascular exam: Present: regular rate and rhythm. Absent: diastolic murmur , systolic murmur - GI/Abdominal GI/Abdominal exam: Present: normal bowel sounds, soft. Absent: distended, tenderness - Extremities Exam Extremities exam: Present: normal inspection, normal capillary refill. Absent: edema - Neurological Exam Neurological exam: Present: alert, oriented X3 - Psychiatric Psychiatric exam: Present: normal affect, normal mood - Skin Skin exam: Present: normal color, warm, dry Results - Labs CBC & BMP: 05/04/16 05:18 05/02/16 09:15 - Impressions * Acute COPD exacerbation-status post bronchoscopy on 05/04/2016 with copious mucus noted throughout both lungs. continue IV antibiotics, bronchodilators, IV steroids. Continue Mucomyst aerosols. Pulmonology following. Follow-up bronchoscopy cultures. * Hypoxia-oxygen as needed. Wean as tolerated. * Positive blood cultures 1/2 gram-positive cocci-due to MRSE - likely contaminant. Continue Cleocin. Follow-up 2nd blood culture result. * Reported abdominal pain and possible cholecystitis-HIDA scan negative. Symptoms have resolved. Discussed with patient, and nursing staff. All questions answered. Quality Measures - Stroke Symptom Onset Unknown: No
[2016-05-04] MEDS: ZALEPLON 5 MG CAPSULE PO PRN (20:52)
[2016-05-05] MEDS: ALBUTEROL/IPRATROPIUM 3 ML NEB RESP TX SCH ×4 (00:16→19:23)
[2016-05-05] MEDS: ACETYLCYSTEINE 20% 800 MG/4 ML VIAL RESP TX SCH ×4 (00:18→19:27)
[2016-05-05] MEDS: CLINDAMYCIN INJ 600 MG in PREMIX 1 EACH IV SCH ×4 (03:34→17:13)
[2016-05-05] MEDS: methylPREDNISolone SOD SUC 40 MG/1 ML VIAL IV SCH ×3 (03:35→14:14)
[2016-05-05] MEDS: LEVOFLOXACIN INJ 750 MG in PREMIX 1 EACH IV SCH (06:50)
[2016-05-05] MEDS: ENOXAPARIN 40 MG/0.4 ML SYRINGE SUBCUT SCH (08:20)
[2016-05-05] MEDS: ASPIRIN EC 81 MG TABLET PO SCH (08:21)
[2016-05-05] MEDS: MONTELUKAST 10 MG TABLET PO SCH ×2 (08:21→20:45)
[2016-05-05] MEDS: DOCUSATE SODIUM 100 MG CAPSULE PO SCH ×2 (08:21→20:45)
[2016-05-05] MEDS: PANTOPRAZOLE 40 MG TABLET PO SCH (08:21)
[2016-05-05] MEDS: FLUCONAZOLE 200 MG TABLET PO SCH (08:21)
[2016-05-05] MEDS: THEOPHYLLINE ER (24 HR) 400 MG CAPSULE PO SCH (08:21)
--- NOTE | 2016-05-05 13:16 | Hospitalist Progress Note ---
Hospitalist: Subjective Interval history: Patient reports he is able to mobilize his secretions better. He is coughing up white sputum. Shortness of breath is better. No chest pain. Tolerating oral intake well. No lower extremity swelling. Bowel movements without difficulty. Denies diarrhea or constipation. Exam - Constitutional Vitals: Period Temp Pulse Resp BP Sys/Osman Pulse Ox Last 24 Hr 97.9 F-99 F 77-101 18-18 113-138/62-88 96-100 General appearance: no acute distress - Head Head exam: Present: normal inspection, normocephalic, atraumatic - ENT ENT exam: Present: normal exam - Respiratory Respiratory exam: Present: decreased breath sounds, prolonged expiratory phase ( Slight wheeze on forced expiration), other - Cardiovascular Cardiovascular exam: Present: regular rate and rhythm. Absent: systolic murmur - GI/Abdominal GI/Abdominal exam: Present: normal bowel sounds, soft. Absent: distended, mass , organomegaly, tenderness - Neurological Exam Neurological exam: Present: alert, oriented X3. Absent: motor sensory deficit - Skin Skin exam: Present: normal color, warm, dry Results - Labs CBC & BMP: 05/04/16 05:18 05/02/16 09:15 - Impressions - Impressions * Acute COPD exacerbation-status post bronchoscopy on 05/04/2016 with copious mucus noted throughout both lungs. continue IV antibiotics, bronchodilators, IV steroids. Continue Mucomyst aerosols. Pulmonology following. Follow-up bronchoscopy cultures. * Hypoxia-oxygen as needed. Wean as tolerated. * Positive blood cultures 1/2 gram-positive cocci-due to MRSE - likely contaminant. Continue Cleocin. Follow-up 2nd blood culture result as it is negative so far. * Reported abdominal pain and possible cholecystitis-HIDA scan negative. Symptoms have resolved. Discussed with patient and nursing staff. All questions answered. Quality Measures - Stroke Symptom Onset Unknown: No
--- NOTE | 2016-05-05 13:21 | Pulmonology Progress Note ---
Pulmonary - PN: Subj Interval history: This 60-year-old white male has COPD and is in with an exacerbation. Dr. Schneider did a fiberoptic bronchoscopy yesterday. He did not find a lot of thick secretions. He has had some bibasilar infiltrates are noted that are improving. He is complaining about his nose being dry. He may not require oxygen at this time, we will check room air O2 saturation and see if we can stop it. Bronchial wash cultures are not out yet. Patient advised to increase activities. Exam (Progress Note) - Constitutional Vitals: Period Temp Pulse Resp BP Sys/Osman Pulse Ox Last 24 Hr 97.9 F-99 F 77-101 18-18 113-138/62-88 96-100 Exam: He is alert and oriented. Vital signs are normal. Pupils react to light. Throat is clear. Neck supple no bruits. Chest prolonged expiratory phase no active wheezing. Heart normal rate and rhythm no murmurs. Abdomen soft nontender no masses. Extremities no clubbing cyanosis or edema. Calves nontender. Results - Labs CBC & BMP: 05/04/16 05:18 05/02/16 09:15 Lab Results: I have reviewed the past 24 hour labs Assessment and Plan (1) Acute exacerbation of chronic obstructive airways disease Status: Acute Assessment and plan: Seems improved. Type of medications. Probably can get by with room air oxygen. Current Visit: Yes
[2016-05-05] MEDS: THEOPHYLLINE ER (24 HR) 400 MG TABLET PO SCH (14:14)
[2016-05-05] MEDS: DORNASE ALFA 2.5 MG/2.5 ML VIAL RESP TX SCH (19:51)
[2016-05-05] MEDS: ZALEPLON 5 MG CAPSULE PO PRN (20:45)
[2016-05-06] MEDS: ACETYLCYSTEINE 20% 800 MG/4 ML VIAL RESP TX SCH ×4 (00:13→21:06)
[2016-05-06] MEDS: ALBUTEROL/IPRATROPIUM 3 ML NEB RESP TX SCH ×4 (00:13→21:06)
[2016-05-06] MEDS: methylPREDNISolone SOD SUC 40 MG/1 ML VIAL IV SCH ×2 (02:29→14:24)
[2016-05-06] MEDS: CLINDAMYCIN INJ 600 MG in PREMIX 1 EACH IV SCH ×4 (02:29→17:06)
[2016-05-06] MEDS: LEVOFLOXACIN INJ 750 MG in PREMIX 1 EACH IV SCH (06:51)
[2016-05-06] MEDS: DORNASE ALFA 2.5 MG/2.5 ML VIAL RESP TX SCH ×2 (08:01→21:26)
[2016-05-06] MEDS: DOCUSATE SODIUM 100 MG CAPSULE PO SCH ×2 (08:12→21:29)
[2016-05-06] MEDS: FLUCONAZOLE 200 MG TABLET PO SCH (08:12)
[2016-05-06] MEDS: PANTOPRAZOLE 40 MG TABLET PO SCH (08:13)
[2016-05-06] MEDS: ASPIRIN EC 81 MG TABLET PO SCH (08:13)
[2016-05-06] MEDS: ENOXAPARIN 40 MG/0.4 ML SYRINGE SUBCUT SCH (08:13)
[2016-05-06] MEDS: MONTELUKAST 10 MG TABLET PO SCH ×2 (08:13→21:29)
--- NOTE | 2016-05-06 11:09 | Hospitalist Progress Note ---
Hospitalist: Subjective Interval history: Shortness of breath has improved. Cough is less productive. No fevers or chills. No chest pain. Tolerating p.o. well. Good bowel movements. Exam - Constitutional Vitals: Period Temp Pulse Resp BP Sys/Osman Pulse Ox Last 24 Hr 98 F-99 F 81-104 16-20 131-140/71-86 93-99 Exam: GEN: Awake alert and oriented to person place and situation in no acute respiratory distress Cardiovascular: regular rate and rhythm, no murmurs. Pulmonary: CTAB diminished bilaterally with prolonged expiratory phase. Nonlabored breathing noted. Abdomen: soft, nontender, nondistended, positive bowel sounds, no organomegaly or masses appreciated. Extremity exam: patient is warm and well perfused. No clubbing cyanosis or edema. Neuro exam: nonfocal Results - Labs CBC & BMP: 05/04/16 05:18 05/02/16 09:15 - Impressions * Acute COPD exacerbation-status post bronchoscopy on 05/04/2016 with copious mucus noted throughout both lungs. continue IV antibiotics, bronchodilators, IV steroids. Continue Mucomyst aerosols. Pulmonology following. Follow-up bronchoscopy cultures. * Hypoxia-oxygen as needed. Wean as tolerated. * Positive blood cultures 1/2 gram-positive cocci-due to MRSE - likely contaminant. Continue Cleocin. Follow-up 2nd blood culture result as it is negative so far. * Reported abdominal pain and possible cholecystitis-HIDA scan negative. Symptoms have resolved. GI has plans for an EGD in the a.m. Discussed with patient and nursing staff. All questions answered. I will be away several days. One of my associates will follow in my absence. Quality Measures - Stroke Symptom Onset Unknown: No
--- NOTE | 2016-05-06 11:25 | Pulmonology Progress Note ---
Pulmonary - PN: Subj Interval history: This 60-year-old white male has COPD and is in with an exacerbation. Dr. Schneider did a fiberoptic bronchoscopy yesterday. He did not find a lot of thick secretions. He has had some bibasilar infiltrates are noted that are improving. He is complaining about his nose being dry. He may not require oxygen at this time, we will check room air O2 saturation and see if we can stop it. Bronchial wash cultures are not out yet. Patient advised to increase activities. 05/06/2016 patient not requiring oxygen. He is getting some sputum up now. I did start him on Pulmozyme yesterday. Exam (Progress Note) - Constitutional Vitals: Period Temp Pulse Resp BP Sys/Osman Pulse Ox Last 24 Hr 98 F-99 F 80-104 16-20 131-140/71-86 93-99 Exam: He is alert and oriented. Vital signs are normal. Pupils react to light. Throat is clear. Neck supple no bruits. Chest prolonged expiratory phase no active wheezing. Heart normal rate and rhythm no murmurs. Abdomen soft nontender no masses. Extremities no clubbing cyanosis or edema. Calves nontender. Little change from yesterday. Results - Labs CBC & BMP: 05/04/16 05:18 05/02/16 09:15 Lab Results: I have reviewed the past 24 hour labs Assessment and Plan (1) Acute exacerbation of chronic obstructive airways disease Status: Acute Assessment and plan: Seems improved. Type of medications. Probably can get by with room air oxygen. 05/06/2016 seems to be better. Tolerating room air oxygen. Can reduce medications. Dr. Schneider will be back to address discharge plans tomorrow. Current Visit: Yes
[2016-05-06] MEDS: THEOPHYLLINE ER (24 HR) 400 MG TABLET PO SCH (14:25)
[2016-05-06] MEDS: ZALEPLON 5 MG CAPSULE PO PRN (22:13)
[2016-05-07] MEDS: CLINDAMYCIN INJ 600 MG in PREMIX 1 EACH IV SCH ×3 (01:14→20:26)
[2016-05-07] MEDS: methylPREDNISolone SOD SUC 40 MG/1 ML VIAL IV SCH ×2 (01:14→12:47)
[2016-05-07] MEDS: ACETYLCYSTEINE 20% 800 MG/4 ML VIAL RESP TX SCH ×4 (02:03→21:02)
[2016-05-07] MEDS: ALBUTEROL/IPRATROPIUM 3 ML NEB RESP TX SCH ×4 (02:04→21:02)
[2016-05-07] MEDS: LEVOFLOXACIN INJ 750 MG in PREMIX 1 EACH IV SCH (05:10)
[2016-05-07 05:25] LABS: Basophils % 0.1 % (0.0-0.8); Hemoglobin 12.9 GM/DL (14.0-18.0); Immature Granulocytes % 12.9 %; Immature Granulocytes Absolute 4.08 #; Lymphocytes # 1.2 10*3/uL (1.4-4.0); Lymphocytes % 3.9 % (21.2-54.2); Mean Corpuscular HGB Conc 33.1 GM/DL (32-36); Mean Corpuscular Hemoglobin 32 PG (27-34); Mean Corpuscular Volume 95.1 FL (87-102); Mean Platelet Volume 8.9 FL (9.6-12.0); Monocytes # 1.5 10*3/uL (0.11-0.8); Monocytes % 4.7 % (1.7-12.7); Neutrophils # 24.8 10*3/uL (1.4-7.4); Neutrophils % 78.4 % (38.7-73.9); Platelet Count 297 T/CUMM (130-400); Red Cell Distribution Width 14.6 % (9.3-17.3); White Blood Count 31.6 T/CUMM (4-12)
[2016-05-07 05:52] LABS: Albumin 2.4 G/DL (3.4-5.0); Calcium 8.7 MG/DL (8.5-10.1); Osmolality,Calculated 292.8 MOS/KG (273-304); Phosphorous 2.9 MG/DL (2.5-4.9); Potassium 5.8 MMOL/L (3.5-5.1)
[2016-05-07 05:53] LABS: Band Neutrophils 1 % (0-10); Lymphocytes 9 % (20-55); Segmented Neutrophils 85 % (50-85); Total Cells Counted 100
[2016-05-07 05:54] LABS: Giant Platelets Few; Hypochromasia 1+; Ovalocytes Slight; Platelet Estimate Adequate
[2016-05-07] MEDS: DORNASE ALFA 2.5 MG/2.5 ML VIAL RESP TX SCH ×2 (07:35→21:08)
--- NOTE | 2016-05-07 08:58 | Hospitalist Progress Note ---
Assessment and Plan - Time spent with patient Time spent with patient: Less than 30 minutes (1) Hyperkalemia Status: Acute Assessment and plan: repeat K this am and if still elevated, will treat and postpone EGD til tomorrow. if K ok then proceed w EGD today. Current Visit: Yes (2) Dysphagia Status: Acute Assessment and plan: for EGD today if K ok. Current Visit: Yes (3) Acute exacerbation of chronic obstructive airways disease Status: Acute Assessment and plan: this has improved. on iv abx, breathing treatments, and iv steroids. need to switch over to po for dc Current Visit: Yes (4) Abdominal pain Status: Acute Assessment and plan: gb wall thickening w normal hida. denies nausea when eating. biggest complaint is early satiety and difficulty swallowing. no RUQ pain. LLQ pain w coughing most likely strain. no signs of hernia. Current Visit: Yes Hospitalist: Subjective Interval history: pt to undergo EGD today by dr doty for dysphagia if hyperkalemia corrected. pt complains of SOB on exertion and pain LLQ w coughing. pt is having several soft stools daily and feels like he is having to strain to urinate. Exam - Constitutional Vitals: Period Temp Pulse Resp BP Sys/Osman Pulse Ox Last 24 Hr 97.8 F-98.8 F 77-98 16-20 127-131/74-90 94-99 59WM, NAD, alert and oriented barrel chest w prolonged expiration, no wheeze cv rrr abd soft, ttp LLQ, no hernia noted w cough ext no edema Results - Labs CBC & BMP: 05/07/16 05:09 05/07/16 05:09 Lab Results: I have reviewed the past 24 hour labs Quality Measures - Stroke Symptom Onset Unknown: No
[2016-05-07] MEDS: FLUCONAZOLE 200 MG TABLET PO SCH (09:45)
[2016-05-07] MEDS: ENOXAPARIN 40 MG/0.4 ML SYRINGE SUBCUT SCH (09:45)
[2016-05-07] MEDS: PANTOPRAZOLE 40 MG TABLET PO SCH (09:45)
[2016-05-07] MEDS: ASPIRIN EC 81 MG TABLET PO SCH (09:45)
[2016-05-07] MEDS: DOCUSATE SODIUM 100 MG CAPSULE PO SCH ×2 (09:45→21:51)
[2016-05-07] MEDS: MONTELUKAST 10 MG TABLET PO SCH ×2 (09:46→21:51)
--- NOTE | 2016-05-07 11:16 | Pathology Report from [facility] ---
ACCESSION # : [id number] PATIENT NAME : Ruben Rosario ORDERING DR : DENISE CABA MD CLINICAL HX: COPD POST-OP DX: Same SPECIMEN INFO: Washing,Bronchial,GABRIEL - 10 ml's greyish white, cloudy. CLASS: II CLASS COMMENTS: Reactive pulmonary cells, marked acute inlammationCELL BLOCK: Same CLASS LEGEND: CLASS 0 Material inadequate for diagnosis because of (see comment) CLASS I Absence of atypical or abnormal cells CLASS II Atypical Cytology but no evidence of malignancy CLASS III Cytology suggestive of but not conclusive for malignancy CLASS IV Cytology strongly suggestive of malignancy CLASS V Cytology conclusive for malignancy SERVICE DATE: 05/04/2016 REPORT DATE: 05/07/2016 PATHOLOGIST: Alexander Ye
--- NOTE | 2016-05-07 11:20 | Pulmonology Progress Note ---
Pulmonary - PN: Subj Interval history: Steven Reed, ANP-BC, GNP-BC, acting as scribe for Dr. Ayden Schneider Mr. Rosario is a 60-year-old white male who was seen in initial pulmonary consultation on 05/01/2016. At that time, our impressions were: 1. Acute exacerbation of COPD/asthma. Refractory to outpatient treatment 2. Probable bibasilar bacterial pneumonia 3. High blood pressure 4. Degenerative joint disease 5. Past history tobacco abuse stopped smoking in 200905/02/2016. The patient was seen today along with his . At admission the patient had complaints of abdominal pain. The patient and his report that he has had abdominal pain after eating for the past several weeks. Ultrasound of the abdomen was done this morning and showed a thickened gallbladder wall suggesting the possibility of cholecystitis. We have consulted Dr. Ji for evaluation. We have also ordered a HIDA scan, amylase and lipase. He has had a long-term complaint of constipation. He states that his stools are hard and he has to strain to defecate. We will start Colace 100mg PO BID. He has had recurrent/unresolved pneumonia since March. Today we had a long discussion with the patient and his regarding the need for evaluation with bronchoscopy. They are agreeable, but he will most likely not be ready for this from a pulmonary standpoint until Saturday. We have tentatively scheduled it for Saturday at 0800. He complained about the cardiac diet this morning. Of note, he also complained of some orthostatic symptoms. We have changed his diet to a regular one as he consumes salt at home and this might symptomatically help his orthostasis. 05/03/16. The patient was seen today along with his and Divya Pimentel RN. The patient's HIDA scan was normal with an EF of 83% at 20 minutes. Again, his abdominal US showed a thickened gallbladder wall and he has had pain after eating for the several weeks at minimum. He also has complained of dysphagia. We will see what Dr. Ji feels is warranted at this time with regard to these issues. The patient's pulmonary status has improved to the point where we can safely proceed with FOB in the morning. Orders have been put into the EMR. Sputum is only growing a yeast. This will be treated with Diflucan. 05/04/16. The patient underwent a fiberoptic bronchoscopy earlier today by Dr. Schneider. He tolerated the procedure well. Please see the fiberoptic bronchoscopy event note for more information. Patient's been seen in GI consultation by Dr. Ji. He is tentatively planned for an EGD on Saturday. The one set of positive blood cultures have grown methicillin-resistant staph epidermidis. 05/07/16. Patient was seen today along with his and Adriana Ji RN. Scheduled for an EGD this morning by Dr. Ji. Initially, the patient's potassium was reported elevated at 5.8 but on recheck was normal at 5.0. Today the patient complains of left lower quadrant pain. On examination there is no evidence of hernia. This is most likely strain secondary to coughing. He also complains of pain with coughing in his right lower chest. These will both be treated with Voltaren gel. The patient states that he has a very short temper which is been aggravated somewhat by his steroids. His asked for medication for this and the patient is agreeable to taking. Will start Tranxene 3.75 mg p.o. 3 times daily. Rhinoscopy washings have only grown Maria G albicans. The patient is presently on Diflucan for this. Medications have been reviewed. We will start Tranxene and Voltaren today as above. Labs have been reviewed. White count is 31,600 (note, the patient has a history of leukemoid reaction secondary to steroids) with 78.4% segs; H&H 12.9/ 39.0; platelet count 297,000; creatinine 0.0, BUN 22, sodium 144, potassium 5.0 , calcium 8.7. Microbiology: One set of blood cultures has grown MRSE and is most likely a contaminant. Sputum gram stain showed few gram positive cocci, few gram negative rods, rare fungal elements, and rare gram positive rods. Culture, however, has only grown Maria G albicans. Exam (Progress Note) - Constitutional Vitals: Period Temp Pulse Resp BP Sys/Osman Pulse Ox Last 24 Hr 97.6 F-98.8 F 75-98 16-22 127-142/74-94 94-99 Exam: Chest is hyperinflated with less wheeze; expiration is prolonged Heart no gallop Abd ...see above; BS positive x 4 Ext with nothing to suggest acute DVT Psych oriented x 3; anxious Neuro long tract motor function is intact Plan: Continue present treatment. Follow-up EGD results. Tranxene 3.75 mg p.o. 3 times daily. Voltaren 1 g to the left lower abdomen and right lower chest 4 times daily. See orders. Results - Labs CBC & BMP: 05/07/16 05:09 05/07/16 08:30
--- NOTE | 2016-05-07 11:45 | History and Physical Update ---
History and Physical Update - Physical Exam Mental Status: alert and oriented Heart: regular rate and rhythm Lung: clear to auscultation Abdomen: within normal limits Vitals: within normal limits
--- NOTE | 2016-05-07 11:47 | Operative Note ---
Date of procedure: 05/07/16 Pre-op diagnosis: dysphagia Procedure: EGD with esophageal dilatation 60-year-old white male with complaints of dysphagia now for upper endoscopy after improving his COPD. Informed consent was obtained the patient He was sedated with Mac anesthesia per anesthesia protocol. Patient placed in left lateral decubitus position the Olympus flexible video upper endoscope was inserted oral cavity under direct vision the esophagus was intubated. Findings: Esophagus-normal proximal mid esophageal mucosa distal esophagus with moderate hiatal hernia distal esophageal stricture. No significant esophagitis, Enriquez' s or varices were seen. Stomach-normal insufflation normal mucosa to direct retroflex views of the body fundus cardia and antrum of the stomach. Pylorus-normal Duodenum-normal from above the duodenum to the third portion of the duodenum. The scope was removed and subsequently a 54 La[place] bougie was passed without difficulty. Patient our procedure well his discharge recovery in good condition. Postop diagnosis: #1 gastroesophageal reflux disease-continue PPI treatment and antireflux precautions #2 esophageal stricture repeat dilatation on an as-needed basis. Anesthesia: MAC Surgeon / Physician: Trey Ji Estimated blood loss: none Specimens: none sent Disposition: post procedure unit Results - Labs CBC & BMP: 05/07/16 05:09 05/07/16 08:30 Discharge Plan - Discharge Medications No Action Ipratropium/Albuterol Inhaler [Combivent Respimat Inhaler] 1 puff INH QID Tiotropium Inhalation [Spiriva Handihaler] 18 mcg INH DAILY Albuterol Sulfate [Proair HFA] 2 puff INH Q4H PRN PRN Reason: Shortness Of Breath/Wheezing Theophylline ER Cap (24 Hr) [Clint-24] 400 mg PO BID Aspirin [Ecotrin] 81 mg PO DAILY Montelukast Tab [Singulair Tab] 10 mg PO BID #60 tablet predniSONE TAB [PredniSONE] 20 mg PO BID Fluticasone/Salmeterol 500-50 [Advair 500-50] 1 puff INH BID - Follow Up or Referral - Forms/Instructions
--- NOTE | 2016-05-07 11:49 | Anesthesia ---
Anesthesia Post OP - Post Ansesthetic Evaluation Patient seen in post op: Yes Resp: within normal limits CV: within normal limits Mental: within normal limits Temp: within normal limits [id number]: within normal limits Nausea and Vomiting: within normal limits Pain: within normal limits
[2016-05-07] MEDS: THEOPHYLLINE ER (24 HR) 400 MG TABLET PO SCH (14:04)
[2016-05-07] MEDS: DICLOFENAC 1% GEL 100 GM TUBE TOP SCH ×3 (14:06→21:52)
[2016-05-07] MEDS: CLORAZEPATE 3.75 MG TABLET PO SCH ×2 (15:13→21:51)
[2016-05-08] MEDS: ACETYLCYSTEINE 20% 800 MG/4 ML VIAL RESP TX SCH ×2 (00:50→07:26)
[2016-05-08] MEDS: ALBUTEROL/IPRATROPIUM 3 ML NEB RESP TX SCH ×2 (00:50→07:26)
[2016-05-08] MEDS: methylPREDNISolone SOD SUC 40 MG/1 ML VIAL IV SCH (01:30)
[2016-05-08] MEDS: CLINDAMYCIN INJ 600 MG in PREMIX 1 EACH IV SCH (04:17)
[2016-05-08] MEDS: LEVOFLOXACIN INJ 750 MG in PREMIX 1 EACH IV SCH (06:09)
[2016-05-08] MEDS ORDERED: DORNASE ALFA 2.5 MG/2.5 ML VIAL RESP TX SCH (07:00)
--- NOTE | 2016-05-08 08:16 | Gastrointestinal Progress Note ---
<TaHanna Efrain - Last Filed: 05/08/16 08:14> Assessment and Plan (1) Abdominal pain Status: Acute Assessment and plan: 05/08-Post EGD dilation, swallowing improved. Continue PPI daily at discharge. Plan and addendum to follow by DR Ji. 05/04-Continued dysphagia, abd pain better. Tentative plan for EGD on Saturday if still inpatient and resp status is improved. Plan and addendum to follow by DR Ji. 05/03-No abd pain at present time. HIDA negative. Continues with dysphagia. Plan and addendum to follow by DR Ji. 05/02-Several month hx of abd pain, with nausea. Also reports early satiety with eating, constipation, and dark stools at times. US of abdomen noted for possible cholecystitis. HIDA pending for the morning. LFTs WNL. No reports of stones, sludge on imaging. Plan and addendum to follow by Dr Ji. Gastroenterology - PN: Subj Interval history: CC: Dysphagia Pt is seen, awake and alert sitting up eating breakfast. He states he is swallowing better today. He is post EGD with dilation on yesterday. Denies any abdominal pain, nausea or vomiting. Abdomen is soft, nontender. Discussed with pt that he will be discharged home on a PPI for GERD and needs to take this daily. He has not been taking anything for reflux prior to admission. Pt verbalizes understanding. ROS: Denies SOB or chest pain Exam (Progress Note) - Constitutional Vitals: Period Temp Pulse Resp BP Sys/Osman Pulse Ox Last 24 Hr 97.6 F-98.3 F 66-91 16-22 124-155/73-96 94-99 General appearance: normal weight, no acute distress - Head Head exam: Present: normal inspection, normocephalic - Eye Eye exam: Present: other (lids and conjunctiva unremarakble). Absent: scleral icterus - ENT ENT exam: Present: normal exam, normal oropharynx - Neck Neck exam: Present: normal inspection - Respiratory Respiratory exam: Present: clear to auscultation bilaterally. Absent: rales, rhonchi, wheezes - Cardiovascular Cardiovascular exam: Present: regular rate and rhythm. Absent: diastolic murmur , JVD, systolic murmur - GI/Abdominal GI/Abdominal exam: Present: normal bowel sounds, soft. Absent: ascites, distended, mass, organomegaly, tenderness - Extremities Exam Extremities exam: Present: normal inspection, full ROM - Back Exam Back exam: Present: normal inspection - Neurological Exam Neurological exam: Present: alert, oriented X3 - Psychiatric Psychiatric exam: Present: normal affect, normal mood - Skin Skin exam: Present: normal color, warm, dry Results - Labs CBC & BMP: 05/07/16 05:09 05/07/16 08:30 Lab Results: I have reviewed the past 24 hour labs Specialty Discharge - Follow Up or Referrals Follow up with: Ayden Schneider MD [Physician] - 05/23/16 11:00 am <Trey Ji - Last Filed: 05/08/16 17:23> Exam (Progress Note) - Constitutional Vitals: Period Temp Pulse Resp BP Sys/Osman Pulse Ox Last 24 Hr 97.6 F-98.3 F 86-101 18-22 125-132/73-87 94-99 Results - Labs CBC & BMP: 05/07/16 05:09 05/07/16 08:30
[2016-05-08] MEDS: ASPIRIN EC 81 MG TABLET PO SCH (09:32)
[2016-05-08] MEDS: CLORAZEPATE 3.75 MG TABLET PO SCH (09:32)
[2016-05-08] MEDS: MONTELUKAST 10 MG TABLET PO SCH (09:33)
[2016-05-08] MEDS: DOCUSATE SODIUM 100 MG CAPSULE PO SCH (09:33)
[2016-05-08] MEDS: ENOXAPARIN 40 MG/0.4 ML SYRINGE SUBCUT SCH (09:33)
[2016-05-08] MEDS: FLUCONAZOLE 200 MG TABLET PO SCH (09:33)
[2016-05-08] MEDS: DICLOFENAC 1% GEL 100 GM TUBE TOP SCH (09:34)
[2016-05-08] MEDS: PANTOPRAZOLE 40 MG TABLET PO SCH (09:41)
[2016-05-08] MEDS ORDERED: CLOTRIMAZOLE 10 MG TROCHE PO SCH (10:00)
--- NOTE | 2016-05-08 11:31 | Discharge Summary ---
Hospital Course - Hospital Course Hospital Course: The patient was admitted to the hospital with pneumonia of bilateral lower lobes associated with some aspiration and underlying COPD. The patient was treated with standard COPD care including IV antibiotics and inhaled beta agonist nebulized breathing therapies, and steroid. The patient had consultation with Dr. Neely his keyboard operator. Bronchoscopy was accomplished and the patient was found to have rather healthy bronchial tubes. He had less bronchiectasis than expected. The patient had some epigastric and left lower quadrant tenderness. The shopping investigator was consulted and the patient had esophagogastroduodenoscopy. It revealed upper GI acid reflux and Schatzki's ring. The ring was dilated and the patient was able to swallow better and seemed to have less aspiration symptom. The patient has improved and is now ready for discharge home I coordinate care with Dr. Neely and we made rounds together prior to discharge. At the time of discharge, chest is generally clear and the patient has mild to moderate air trapping. Abdomen is soft. Heart has regular rate and rhythm. - Time spent with patient Time with patient DS: Greater than 30 minutes Diagnosis - Discharge Diagnosis (1) Acute exacerbation of chronic obstructive airways disease Status: Acute (2) Dysphagia Status: Acute Discharge Plan - Discharge Data Disposition: Disch To Home/Self Care Condition at Discharge: Stable Discharge Diet: advance to your usual diet Activity: resume usual activities as tolerated, other (return to work in 2 weeks ) - Discharge Medications New Pantoprazole Tab [Protonix Tab] 40 mg PO DAILY #60 tablet Levofloxacin Tab [Levaquin Tab] 500 mg PO DAILY #5 tablet Continue Ipratropium/Albuterol Inhaler [Combivent Respimat Inhaler] 1 puff INH QID Tiotropium Inhalation [Spiriva Handihaler] 18 mcg INH DAILY Albuterol Sulfate [Proair HFA] 2 puff INH Q4H PRN PRN Reason: Shortness Of Breath/Wheezing Theophylline ER Cap (24 Hr) [Clint-24] 400 mg PO BID Aspirin [Ecotrin] 81 mg PO DAILY Montelukast Tab [Singulair Tab] 10 mg PO BID #60 tablet Fluticasone/Salmeterol 500-50 [Advair 500-50] 1 puff INH BID predniSONE TAB [PredniSONE] 20 mg PO BID #60 - Follow Up or Referral Follow Up: Ayden Schneider MD [Physician] - 2 Weeks - Forms/Instructions Exam - Constitutional Vitals: Period Temp Pulse Resp BP Sys/Osman Pulse Ox Last 24 Hr 97.6 F-98.3 F 66-97 16-22 124-155/73-96 94-99 Discharge Results Procedures and tests throughout hospitalization: Pending Orders 05/04/16 AFB Culture/Smears Routine Fungal Culture w/ Prep Routine Labs on day of discharge: Preliminary micro results at discharge 05/04/16 Unknown Mycobacterial Culture - Preliminary Bronchial Washings No AFB isolated at 1 week DS: Provider Date of admission: 05/01/16 03:38 Primary care physician: Trae Adair MD Attending physician on admission: Kishore Lanier MD Consults: 05/01/16 12:49 Consult to Dietitian [CONS] Routine Reason for Dietitian: Other 05/01/16 12:59 Consult to Pastoral Services [CONS] Routine Comment: Pastoral Screen: Declines Visit Pastoral Screen Source of Request: Patient 05/02/16 10:39 Consult to Physician [CONS] Routine Comment: abn US abd; HIDA ordered Consulting Provider: Trey Ji Person Notified: deisy Date Notified: 05/02/16 Time Notified: 12:51 Discharging clinician: Wade Bean MD
[2016-05-08 12:09] VITALS: BP 125/84
--- NOTE | 2016-05-08 12:52 | Pulmonology Progress Note ---
Pulmonary - PN: Subj Interval history: Steven Reed, ANP-BC, GNP-BC, acting as scribe for Dr. Ayden Schneider Mr. Rosario is a 60-year-old white male who was seen in initial pulmonary consultation on 05/01/2016. At that time, our impressions were: 1. Acute exacerbation of COPD/asthma. Refractory to outpatient treatment 2. Probable bibasilar bacterial pneumonia 3. High blood pressure 4. Degenerative joint disease 5. Past history tobacco abuse stopped smoking in 200905/02/2016. The patient was seen today along with his . At admission the patient had complaints of abdominal pain. The patient and his report that he has had abdominal pain after eating for the past several weeks. Ultrasound of the abdomen was done this morning and showed a thickened gallbladder wall suggesting the possibility of cholecystitis. We have consulted Dr. Ji for evaluation. We have also ordered a HIDA scan, amylase and lipase. He has had a long-term complaint of constipation. He states that his stools are hard and he has to strain to defecate. We will start Colace 100mg PO BID. He has had recurrent/unresolved pneumonia since March. Today we had a long discussion with the patient and his regarding the need for evaluation with bronchoscopy. They are agreeable, but he will most likely not be ready for this from a pulmonary standpoint until Saturday. We have tentatively scheduled it for Saturday at 0800. He complained about the cardiac diet this morning. Of note, he also complained of some orthostatic symptoms. We have changed his diet to a regular one as he consumes salt at home and this might symptomatically help his orthostasis. 05/03/16. The patient was seen today along with his and Divya Pimentel RN. The patient's HIDA scan was normal with an EF of 83% at 20 minutes. Again, his abdominal US showed a thickened gallbladder wall and he has had pain after eating for the several weeks at minimum. He also has complained of dysphagia. We will see what Dr. Ji feels is warranted at this time with regard to these issues. The patient's pulmonary status has improved to the point where we can safely proceed with FOB in the morning. Orders have been put into the EMR. Sputum is only growing a yeast. This will be treated with Diflucan. 05/04/16. The patient underwent a fiberoptic bronchoscopy earlier today by Dr. Schneider. He tolerated the procedure well. Please see the fiberoptic bronchoscopy event note for more information. Patient's been seen in GI consultation by Dr. Ji. He is tentatively planned for an EGD on Saturday. The one set of positive blood cultures have grown methicillin-resistant staph epidermidis. 05/07/16. Patient was seen today along with his and Adriana Ji RN. Scheduled for an EGD this morning by Dr. Ji. Initially, the patient's potassium was reported elevated at 5.8 but on recheck was normal at 5.0. Today the patient complains of left lower quadrant pain. On examination there is no evidence of hernia. This is most likely strain secondary to coughing. He also complains of pain with coughing in his right lower chest. These will both be treated with Voltaren gel. The patient states that he has a very short temper which is been aggravated somewhat by his steroids. His asked for medication for this and the patient is agreeable to taking. Will start Tranxene 3.75 mg p.o. 3 times daily. Bronchoscopy washings have only grown Maria G albicans. The patient is presently on Diflucan for this. 05/08/2016. The patient was seen today along with his and Emeli Nguyen RN. Patient had an EGD on 05/07/[address] Ji. This showed gastroesophageal reflux disease as well as an esophageal stricture in the proximal mid esophagus. This was dilated. Had a moderate hiatal hernia, but no significant esophagitis, Enriquez's, or varices. Dr. Ji recommended continuing proton pump inhibitor and antireflux precautions. He noted repeat EGD with dilatation can be done as needed. With a long discussion today with the patient and his regarding antireflux precautions and the need for this medication. Certainly, any reflux would adversely affect his respiratory status. We have told the patient that at discharge he should continue antibiotics for another approximately 3 days secondary to his recent instrumentations. He should remain off work for approximately 2 weeks with a tentative return to work date of 05/21/2016. [facility] paperwork has been completed by social work. This was given to the patient prior to discharge. He will have a follow-up appointment to see Dr. Neely in approximately 4-5 weeks. We discussed patient's case with Dr. Bean today and coordinated care. Medications have been reviewed. Labs have been reviewed. At discharge, white count is 31,600 (note, the patient has a history of leukemoid reaction secondary to steroids) with 78.4% segs; H&H 12.9/39.0; platelet count 297,000; creatinine 0.0, BUN 22, sodium 144 , potassium 5.0, calcium 8.7; amylase and lipase were normal at 45 and 91.0 respectively; liver function tests within normal limits; Legionella is negative. Cold agglutinins are negative. Microbiology: One set of blood cultures has grown MRSE and is most likely a contaminant. Sputum gram stain showed few gram positive cocci, few gram negative rods, rare fungal elements, and rare gram positive rods. Culture, however, has only grown Maria G albicans. Exam (Progress Note) - Constitutional Vitals: Period Temp Pulse Resp BP Sys/Osman Pulse Ox Last 24 Hr 97.6 F-98.3 F 66-101 18-22 124-155/73-96 94-99 Exam: Chest is hyperinflated with less wheeze; expiration is prolonged Heart no gallop Abd nontender and nondistended; BS positive x 4 Ext with nothing to suggest acute DVT Psych oriented x 3; anxious, but less so than previously Neuro long tract motor function is intact Plan: From a pulmonary standpoint the patient is suitable for discharge today. We would recommend continuing antibiotics for at least another 3 days post discharge. He will be scheduled follow-up with Dr. Neely in approximately 4-5 weeks. He can be seen sooner as needed. We will sign off. Please reconsult as needed. Results - Labs CBC & BMP: 05/07/16 05:09 05/07/16 08:30 Specialty Discharge - Follow Up or Referrals Follow up with: Ayden Schneider MD [Physician] - 05/23/16 11:00 am
== END 2016-05-08 12:40 | disposition home or self-care (01) | DRG 178 ==
LOC: EDBD → EDUNIT# → N.ED 02:26 → N.EDINP 03:37 → SUATTDRO 03:38 → N.5E 11:32
PROVIDERS: ADMIT Internal Medicine; ATTEND Internal Medicine

== ENCOUNTER 2016-07-31 21:15 | Inpatient (IN) ==
[2016-07-31] MEDS ORDERED: methylPREDNISolone SOD SUC 125 MG/2 ML VIAL IV STA (21:33)
[2016-07-31] MEDS ORDERED: NITROGLYCERIN 2% OINT 1 INCH/GM PACK TOP STA (21:33)
[2016-07-31] MEDS ORDERED: LEVOFLOXACIN INJ 750 MG in PREMIX 1 EACH IV STA (21:33)
[2016-07-31] MEDS ORDERED: PANTOPRAZOLE 40 MG VIAL IV STA (21:35)
[2016-07-31] MEDS ORDERED: METOCLOPRAMIDE 10 MG/2 ML VIAL IV STA (21:35)
--- NOTE | 2016-07-31 21:38 | Emergency Department Note ---
Arrival - Arrival Chief Complaint: Shortness of Breath Stated Complaint: chest pain, shortness of breath ED Nursing Triage Note: Patient to room via ems. Patient has c/o shortness of breath and chest pain. Patient is coughing up thick white mucus. Patient does have COPD. Mode of Arrival: Stretcher Limitations: No Limitations Source: Patient Time Seen by Provider: 07/31/16 21:33 - History of Present Illness HPI Narrative: This 7-year-old white male chronic COPD patient followed by Dr. Neely presents with 3 days of increased dyspnea on exertion and rest, increased wheeze, cough productive of thick white sputum, and central chest tightness. He also has significant upswing and complaints of water brash, burping, belching, and heartburn during the same timeframe. He denies any austen chest pain, diaphoresis, chills, or fever. Onset (ago): day(s) (Patient presents 3 days post onset of symptoms) Allergies/Adverse Reactions: Allergies Allergy/AdvReac Type Severity Reaction Status Date / Time No Known Allergies Allergy Verified 07/31/16 21:27 Home Medications: Home Medications Medication Instructions Recorded Confirmed Type Albuterol Sulfate [Proair HFA] 2 puff INH Q4H PRN 04/13/16 05/01/16 History Aspirin [Ecotrin] 81 mg PO DAILY 04/13/16 05/01/16 History Montelukast Tab [Singulair Tab] 10 mg PO BID #60 tablet 04/13/16 05/01/16 Rx Theophylline ER Cap (24 Hr) 400 mg PO BID 04/13/16 05/01/16 History [Clint-24] Tiotropium Inhalation [Spiriva 18 mcg INH DAILY 04/13/16 05/01/16 History Handihaler] Fluticasone/Salmeterol 500-50 1 puff INH BID 05/01/16 05/01/16 History [Advair 500-50] Ipratropium/Albuterol Inhaler 1 puff INH QID 05/01/16 05/01/16 History [Combivent Respimat Inhaler] Levofloxacin Tab [Levaquin Tab] 500 mg PO DAILY #5 tablet 05/08/16 Rx Pantoprazole Tab [Protonix Tab] 40 mg PO DAILY #60 tablet 05/08/16 Rx predniSONE TAB [PredniSONE] 20 mg PO BID #60 05/08/16 Rx Review of System - Review of System 12 point system: reviewed and no additional remarkable complaints except as stated - Review of System Constitutional: Present: as per HPI Respiratory: Present: as per HPI Cardiovascular: Present: as per HPI Gastrointestinal: Present: as per HPI Medical,Surgical,& Family Hx - Medical History Cardio: History of: Hypertension Respiratory: History of: COPD - Surgical History Abdominal Surgeries: Patient denies: Abdominal Surgery Orthopedic Surgeries: Surgical HX of;: Orthopedic Surgery - Family History Family History: Reports;: Family Hypertension - Social History Smoking Status: Former smoker Frequency of Alcohol Use: None Type of Drug Use: None Exam Physical Examination: GENERAL: Chronically ill white male with evident increased work of breathing. HEENT: Normocephalic. No trauma. Moist mucous membranes. EOMI. PERRLA. ENT NML NECK: Supple. No adenopathy. CARDIAC: Regular. No murmurs. Heart rate 94 CHEST: Scattered expiratory wheezes. No respiratory distress. O2 sat 91% ABDOMEN: Soft. Very tender mid epigastrium. Active bowel sounds. EXTREMITIES: No trauma. Normal ROM. No pedal edema. SKIN: No diaphoresis. No rash. NEURO: Alert. Neuro intact no focal deficits. Vital Signs: Vital Signs Temperature 100.0 F H 07/31/16 21:27 Pulse Rate 91 H 07/31/16 21:27 Respiratory Rate 31 H 07/31/16 21:27 Blood Pressure 138/95 07/31/16 21:27 O2 Sat by Pulse Oximetry 91 L 07/31/16 21:15 Course - Reevaluation(s) Reevaluation #1: Advised patient of need for hospitalization given his pneumonia. - Consultations Consultation #1: Discussed with the hospitalist service who will admit for further evaluation treatment. Results - Labs CBC & BMP: 07/31/16 21:28 07/31/16 21:28 Labs: I have reviewed the laboratory noted the elevated white blood cell count and the small bump in troponin - Impressions EKG: Sinus tachycardia at 130, normal ME interval and QRS duration. Evidence of right ventricular hypertrophy with diffuse nonspecific ST changes. No acute injury pattern noted. - Diagnostic Findings Procedure: Chest x-ray: image reviewed by me, report reviewed by me (Evidence of right upper lobe pneumonia with background of advanced COPD) Disposition Clinical Impression: Right upper lobe pneumonia, COPD/asthma, Abnormal cardiac enzyme Case discussed with: patient, patient's family Disposition: Still a Patient Condition: Guarded Time of Disposition: 22:28
[2016-07-31] MEDS ORDERED: NITROGLYCERIN 2% OINT 1 INCH/GM PACK TOP ONE (21:40)
[2016-07-31] MEDS ORDERED: PANTOPRAZOLE 40 MG VIAL IV ONE (21:40)
[2016-07-31] MEDS ORDERED: METOCLOPRAMIDE 10 MG/2 ML VIAL ONE (21:40)
[2016-07-31] MEDS ORDERED: methylPREDNISolone SOD SUC 125 MG/2 ML VIAL ONE (21:40)
[2016-07-31] MEDS ORDERED: LEVOFLOXACIN INJ 150 ML IV ONE (21:40)
[2016-07-31 21:43] LABS: Basophils # 0.1 10*3/uL (0.0-0.2); Basophils % 0.6 % (0.0-0.8); Eosinophils # 0.1 10*3/uL (0.0-0.87); Eosinophils % 0.6 % (0.00-10.9); Hematocrit 46.8 VOL% (42.0-52.0); Hemoglobin 16.3 GM/DL (14.0-18.0); Immature Granulocytes Absolute 0.99 #; Lymphocytes # 2.3 10*3/uL (1.4-4.0); Lymphocytes % 11.7 % (21.2-54.2); Mean Corpuscular HGB Conc 34.8 GM/DL (32-36); Mean Corpuscular Hemoglobin 32 PG (27-34); Mean Corpuscular Volume 91.2 FL (87-102); Mean Platelet Volume 9.7 FL (9.6-12.0); Monocytes # 1.5 10*3/uL (0.11-0.8); Monocytes % 7.7 % (1.7-12.7); Neutrophils # 14.6 10*3/uL (1.4-7.4); Neutrophils % 74.4 % (38.7-73.9); Platelet Count 260 T/CUMM (130-400); Red Blood Count 5.13 MC/CUMM (3.8-5.5); Red Cell Distribution Width 13.6 % (9.3-17.3); White Blood Count 19.6 T/CUMM (4-12)
--- NOTE | 2016-07-31 21:52 | XRay Report ---
XR chest 1V portable Indication: Shortness of breath. Chest one view: Comparison 05/02/2016. Heart size and mediastinal contours remain within normal limits. Bibasilar interstitial scarring is stable. In the right upper lobe, there is a coarsened interstitial prominence that has asymmetrically developed and may represent an early interstitial pneumonia. Impression: Early right upper lobe interstitial pneumonia, new. Bibasilar interstitial scarring, stable. PROCEDURE INTERPRETED AT [facility] DEPARTMENT OF RADIOLOGY Final Report Signed by: Kishore Drake M.D.
[2016-07-31 21:59] LABS: INR 1.3; PT Patient Result 13.4 SECS; Partial Thromboplastin Time 27.3 SECS (0-40)
[2016-07-31 22:00] LABS: Alanine Aminotransferase 34 U/L (16-61); Albumin 3.1 G/DL (3.4-5.0); Alkaline Phosphatase 112 U/L (45-117); Aspartate Amino Transferase 28 U/L (0-37); Blood Urea Nitrogen 17 MG/DL (7-18); Calcium 9.3 MG/DL (8.5-10.1); Glucose 247 MG/DL (74-106); Potassium 3.8 MMOL/L (3.5-5.1); Sodium 136 MMOL/L (136-145); Total Protein 6.2 G/DL (6.4-8.3)
[2016-07-31] MEDS ORDERED: ALBUTEROL 2.5 MG/3 ML NEB RESP TX SCH (22:00)
[2016-07-31] MEDS ORDERED: METOPROLOL TARTRATE 25 MG TABLET PO STA (23:06)
[2016-07-31] MEDS ORDERED: METOPROLOL TARTRATE 25 MG TABLET ONE (23:07)
[2016-07-31] MEDS ORDERED: ALBUTEROL 2.5 MG/3 ML NEB RESP TX PRN (23:10)
--- NOTE | 2016-07-31 23:25 | Hospitalist History & Physical ---
Assessment and Plan (1) Right upper lobe pneumonia Status: Acute Assessment and plan: Patient has had multiple admission in the past leading to the area part of this year with what is described as pneumonia. I do not have cavitary pneumonia but is beginnings of an opacity in the right upper lobe. Prior sputum evaluations have been poor collection but is quite thick sputum being produced now. Gram stain and culture the sputum. The patient on cefepime 1 g IV every 8 hour avoid use of quinolones. I will therefore stop the quinolone started in the emergency room. Put the patient on azithromycin 500 mg IV every x 4 days. Change in antibiotic subject to outcome of the sputum evaluation. Get a consultation with Dr. Schneider regarding pulmonary assessment and recommendations. Current Visit: Yes (2) Leukocytosis Status: Acute Assessment and plan: This could be multifactorial including the above-mentioned ammonia as well as chronic use of steroids that will cause demargination. Follow and advise accordingly with repeat CBCs. Current Visit: Yes (3) Sinus tachycardia Status: Acute Assessment and plan: Checking theophylline levels. She has been talked to regarding drinking a lot of coffee at home and noticed that he was also on levofloxacin. I suspect that is what contributed to it. states that her heart rate is been going up recently. We will continue theophylline depending on the outcome of the theophylline level. Current Visit: Yes (4) Acute exacerbation of chronic obstructive airways disease Status: Acute Assessment and plan: Encourage pulmonary toiletry. Aggressive beta-2 organism with use of albuterol nebulization every 6 hours and for as needed. Patient is on Spiriva that will continue. For these have not ordered ipratropium bromide. And will also be on Solu-Medrol 60 mg IV every 8 hours. Patient will be admitted to hospital medicine on telemetry. Current Visit: No History of Present Illness Chief complaint: Respiratory distress/tachycardia History of present illness: Mr. Rosario is a 61 year old male with COPD, multiple hospitalization due to these , patient followed by Dr. Schneider, presents with 3 days of increased dyspnea on exertion and rest, increased wheeze, cough productive of thick white sputum, and central chest tightness. at bedside is reporting increasing tachycardia at rest and restlessness. He also has significant upswing and complaints of water brash, burping, belching, and heartburn during the same timeframe. He has increased sputum production. I noticed that at home he was on levofloxacin and also taking a hefty dose of theophylline. He denies any austen chest pain, diaphoresis, chills, or fever. Home Medications Medication Instructions Recorded Confirmed Type Albuterol Sulfate [Proair HFA] 2 puff INH Q4H PRN 04/13/16 05/01/16 History Aspirin [Ecotrin] 81 mg PO DAILY 04/13/16 05/01/16 History Montelukast Tab [Singulair Tab] 10 mg PO BID #60 tablet 04/13/16 05/01/16 Rx Theophylline ER Cap (24 Hr) 400 mg PO BID 04/13/16 05/01/16 History [Clint-24] Tiotropium Inhalation [Spiriva 18 mcg INH DAILY 04/13/16 05/01/16 History Handihaler] Fluticasone/Salmeterol 500-50 1 puff INH BID 05/01/16 05/01/16 History [Advair 500-50] Ipratropium/Albuterol Inhaler 1 puff INH QID 05/01/16 05/01/16 History [Combivent Respimat Inhaler] Levofloxacin Tab [Levaquin Tab] 500 mg PO DAILY #5 tablet 05/08/16 Rx Pantoprazole Tab [Protonix Tab] 40 mg PO DAILY #60 tablet 05/08/16 Rx predniSONE TAB [PredniSONE] 20 mg PO BID #60 05/08/16 Rx Allergies Allergy/AdvReac Type Severity Reaction Status Date / Time No Known Allergies Allergy Verified 07/31/16 21:27 Medical,Surgical,& Family Hx - Medical History Cardio: History of: Hypertension Respiratory: History of: COPD - Surgical History Abdominal Surgeries: Patient denies: Abdominal Surgery Orthopedic Surgeries: Surgical HX of;: Orthopedic Surgery - Family History Family History: Reports;: Family Hypertension - Social History Smoking Status: Former smoker Frequency of Alcohol Use: None Type of Drug Use: None Review of systems: A 12 point system assessment was done. Patient does have respiratory distress with difficult to speak because he has to catch his breath mild facial plethora no acrocyanosis. Very tachycardic sinus tachycardia is takes it with the beginnings of right upper lobe pneumonia and bibasilar scarring possibly due to COPD (patient stopped smoking about 9 years ago) Exam - Constitutional Vitals: Period Temp Pulse Resp BP Sys/Osman Pulse Ox Last 24 Hr 100.0 F-100.0 F 91-91 31-31 138-138/95-96 91 General appearance: normal weight - Head Head exam: Present: normocephalic, atraumatic, other (Mild facial plethora) - Eye Eye exam: Present: EOMI, other (No conjunctival petechia pink conjunctivae no icterus) Pupils: Present: KAVITA - ENT ENT exam: Present: normal exam - Neck Neck exam: Present: normal inspection, other (Supple neck no JVD midline trachea ) - Respiratory Respiratory exam: Present: clear to auscultation bilaterally, other (Diffuse wheezing but distant lung sounds suggestive of chronic obstructive pulmonary disease possibly emphysema) - Cardiovascular Cardiovascular exam: Present: tachycardia, other (Sinus control) - GI/Abdominal GI/Abdominal exam: Present: normal bowel sounds, soft - Extremities Exam Extremities exam: Present: normal inspection, full ROM, other (No edema or cyanosis no clubbing of the nail) - Back Exam Back exam: Present: normal inspection - Neurological Exam Neurological exam: Present: alert, oriented X3, CN II-XII intact, other ( Moderate anxiousness) - Skin Skin exam: Present: normal color, warm, dry, other (Mild/moderate facial plethora) Results - Labs CBC & BMP: 07/31/16 21:28 07/31/16 21:28 Lab Results: I have reviewed the past 24 hour labs (Patient has chronic leukocytosis this could be related to use of steroids at home using 20 mg twice a day of prednisone so noted is a hyperglycemia which could be related to that too.)
[2016-08-01] MEDS: ALBUTEROL 2.5 MG/3 ML NEB RESP TX SCH ×4 (01:15→19:02)
[2016-08-01] MEDS: CEFEPIME 1,000 MG in SODIUM CHLORIDE 0.9% 100 ML IV SCH ×3 (01:17→16:27)
[2016-08-01] MEDS: CLORAZEPATE 7.5 MG TABLET PO SCH ×4 (03:49→21:53)
--- NOTE | 2016-08-01 06:32 | EKG Report ---
Stationary ECG Study [facility] ER Test Date: 07/31/2016 9:23:16 PM Pat Name: EDMOND GUTIERREZ Department: Room: 274 Gender: M Transcription: : 1955 Requested by: Mehran Byrd Order Number: [id number] Reading MD: MATEO MONTANEZ Intervals [place] Rate: 130 P: 88 UT: 124 QRS: 258 QRSD: 94 T: 78 QT: 312 QTc: 389 Interpretive Statements SINUS TACHYCARDIA POSSIBLE RIGHT VENTRICULAR HYPERTROPHY LEFT AXIS DEVIATION Electronically Signed On 08-01-16 20:47:36 CDT by MATEO MONTANEZ [email or web address]
[2016-08-01] MEDS: IPRATROPIUM 500 MCG/2.5 ML NEB RESP TX SCH ×4 (07:12→19:02)
[2016-08-01] MEDS: methylPREDNISolone SOD SUC 40 MG/1 ML VIAL IV SCH ×3 (07:16→21:54)
[2016-08-01] MEDS: PANTOPRAZOLE 40 MG TABLET PO SCH (08:26)
[2016-08-01] MEDS: ASPIRIN EC 81 MG TABLET PO SCH (08:27)
[2016-08-01] MEDS: METOPROLOL TARTRATE 25 MG TABLET PO SCH ×2 (08:27→21:53)
[2016-08-01] MEDS: MONTELUKAST 10 MG TABLET PO SCH ×2 (08:27→21:53)
[2016-08-01] MEDS: FLUTICASONE/SALMETEROL 500-50 DISKUS 14 DOSE INH SCH ×2 (08:31→21:53)
[2016-08-01] MEDS ORDERED: LACTULOSE 20 GM/30 ML UDCUP PO PRN (08:49)
--- NOTE | 2016-08-01 10:27 | Hospitalist Progress Note ---
Assessment and Plan - Time spent with patient Time spent with patient: Less than 30 minutes (1) Acute exacerbation of chronic obstructive airways disease Status: Acute Assessment and plan: Mr. Rosario is a 61-year-old white male with history of COPD admitted by the hospitalist service with acute exacerbation of COPD and pneumonia.` Patient is afebrile and his tachycardia on admission has improved. Patient is breathing much easier without complaints of chest pain or shortness of breath this morning. His theophylline level was in the normal ranges so will restart his home dose. Patient's white count was 19.6 upon admission and this will be repeated in the morning. He is on antibiotics, breathing treatments, and steroids. Dr. Schneider was consulted as his order processing specialist. Patient's blood sugars are elevated to 247. He denies being a diabetic but he is also on high-dose steroids. We will continue to monitor this. Patient did have some chest pressure and pain prior to admission with a mildly elevated troponin. He has no complaints of chest pain right now but will go ahead and repeat a troponin in the morning to be safe. Patient's only complaint is needing to have a bowel movement. Patient has been given some lactulose for this. Dr. Bean to see and examined patient and further recommendations to follow. Current Visit: No (2) Right upper lobe pneumonia Status: Acute Current Visit: Yes (3) Leukocytosis Status: Acute Current Visit: Yes (4) Sinus tachycardia Status: Acute Current Visit: Yes Hospitalist: Subjective Interval history: Patient feels a lot better this morning. He is breathing easier with no complaints of chest pain. He states he did have some chest pain when the ambulance picked him up yesterday that resolved with morphine. His only complaint this morning is that he has not had a bowel movement in a week. Exam - Constitutional Vitals: Period Temp Pulse Resp BP Sys/Osman Pulse Ox Last 24 Hr 96 F-100.0 F 91-134 16-31 117-138/75-96 90-98 Exam: 61-year-old white male, no acute distress, alert and oriented Chest with bilateral coarseness, no wheezing CV regular rate and rhythm Abdomen soft nontender Extremities no edema Results - Labs CBC & BMP: 07/31/16 21:28 07/31/16 21:28 Lab Results: I have reviewed the past 24 hour labs
[2016-08-01] MEDS: miSOPROStol 200 MCG TABLET PO SCH (11:04)
[2016-08-01] MEDS: THEOPHYLLINE ER (24 HR) 400 MG CAPSULE PO SCH ×2 (11:04→21:53)
--- NOTE | 2016-08-01 11:04 | Pulmonology Consult Note ---
History of Present Illness Chief complaint: Exacerbation of COPD. Pneumonia. Constipation. History of present illness: Mr. Rosario is a 61 year old white male whom I been asked to see in pulmonary consultation for evaluation and treatment. This is a longtime patient of [employer] whom I last saw in the office 07/19/2016. He is admitted with a complaint of progressive shortness of breath and a cough productive of yellow-green sputum. He is hearing herself wheeze. He has some mild solid dysphasia. He also complains of obstipation. When I saw the patient in my office on 07/19/2016 we had a talk about his constipation is hard stools. He said this is gotten a lot worse over the preceding 2-3 months. I think his diuretics were probably exacerbating this and I talked to him about stool softeners and I suggested FiberCon 625 twice daily or MiraLAX 17 g daily Colace 100 twice daily or Konsyl 1 tablespoon twice daily. I asked the patient about that today and he said he was unable to find any of these. The patient's had some sinus congestion. He says he has some reflux and he says it león his throat. He says he is following an antireflux regimen. He has had no epistaxis hemoptysis hematemesis hematochezia melena or hematuria. The patient complains of some vague chest fullness and he complains of palpitations. He was on Clint-24 400 mg twice a day and his admit theophylline level was slightly above 12. He drinks a lot of coffee on a daily basis. While he is here I will decrease his theophylline level to 400 once a day. The patient was on Levaquin as an outpatient. 07/19/2016 I met with the patient and his . He reached a point that he cannot continue to work because he was so short of breath. Along the way he developed some problems with syncope this seem to be related to his severe shortness of breath. A company that he works for gave him a early long term disability from the company. The patient said that the company said that he can no longer works safely and they told him they would back him for his disability claims. I agree the patient is disabled. I think he is 100% disabled from a pulmonary standpoint. He can barely walk up and down the [place] in my office or in the hospital and is not safe for him to continue to work. 07/19/2016 pulmonary function test. 1. Severe obstructive disease. FEV1/FVC is 35%. FEF 25/75 is 7%. 2. Positive response to inhaled bronchodilators. 25% increase in FVC. 3% increase in FEV1. 12% increase in maximum voluntary ventilation. 3. Forced vital capacity is 1.82 L of 45% of predicted. This is secondary to his severe obstructive disease and emphysematous disease. I have examined the patient and I looked at his chest x-ray and this does not represent restrictive disease 4. DLCO is 54% of predicted. DLCO/VA is 64% of predicted. This is a moderate to severe diffusion defect secondary to emphysema 5. O2 sats on room air that they were 97%. This occurs in about one third of emphysematous patients and has to do with a very fortunate ventilation perfusion match. 6. Severe decrease in maximum voluntary ventilation. Post inhaled bronchodilator numbers were as best. His maximum voluntary ventilation was 19 L /min of 15% of predicted. At rest this patient would normally be greater than 5 -6 L/min so he can only increase his baseline 3 or 4 times. 7. There been a loss of function compared to studies done 09/21/2010. Forced vital capacity had decreased from 2.17 L to 1.82 L. FEV1 had decreased from 0.97 L to 0.53 L. Allergies. None. Home medicines. Advair Diskus 500/51 puff twice daily. Nebulizer with duo nebs 4 times daily. Singulair 10 mg twice daily. Prevacid 40 daily. KCl 10 mEq twice daily. Prednisone 20 mg twice daily. Pro-air HFA inhaler 2 puffs 4 times daily. Spiriva Respimat 2 puffs once a day. Theophylline 400 mg twice daily. Tranxene 3.75 3 times daily. Past history. Vic's hospitalization 05/08/2016 for bilateral lower lung pneumonia. Underlying COPD and emphysema. Hospitalization at [facility] June and July 2010 with acute exacerbation of chronic COPD with intractable bronchitis and bronchospasm plus retained secretions. At that time the patient has a leukemoid reaction. Severe chronic obstructive pulmonary disease with a bronchodilator effect. Emphysema. He does not use alcohol. 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 On 07/19/2016 visit patient told me his company told him to take early long term since she was disabled to work. See above. Over the years that I have taken care of this patient he has had a good bit of pride his ability go to work every day and are now living. He is he has worked a number of years longer than I thought he would be able to work. I agree he is 100% disabled. Chest x-ray.Small heart. Benign bilateral hilar calcifications and scarring. Pulmonary arteries are top normal. Mediastinum is normal. Lung mcleod are hyperinflated. There are punctate calcifications seen in all 5 lung mcleod and these are most prominent over both lower lungs. Probably early infiltrate in the right lower lung and possible early infiltrate in the left lower lung seen best at the costophrenic angle. Family history. Positive for high blood pressure and diabetes Social history patient has been a smoker but quit smoking a number of years ago. He is . Rhythm strips. Sinus tachycardia as high as 125 bpm EKG. Sinus tachycardia at a rate of 130. P-wave is prominent. There is slow anterior R-wave progression. There are nonspecific STs and T's that appear to be rate related. I do not see any acute changes. There is an incomplete right bundle branch block Lab. White blood cells 19,600 with 74 segs 12 lymphs 7.7 monos. This will probably steel turner to be a leukemoid reaction which the patient had in the past. H&H is 16.3/46.8 with normal indices normal red blood cell distribution with. Platelets are 260,000 with a normal mean platelet volume. INR is 1.3. Electrolytes are normal. Creatinine is 0.80 with a BUN of 17. Calcium is normal liver function tests are normal troponins are 0.080. Natruretic peptide is normal at 25. Total protein is low at 6.1. Albumin is low at 3.1. Globulin is normal at 3.1. Theophylline level was 12.3. Therapeutic range is considered 10-20. Microbiology. No studies noted. Physical exam. Vital signs see below Psychiatric. Oriented 3 Neurological. Cranial nerves are intact long track motor functions intact sensory exam was not done. Gait appears to be normal. Pupils irises sclera conjunctiva eyelids are normal. Face is symmetrical. Lips and tongue are normal. Neck. Symmetrical. No meningismus. Thyroid was not palpated. Lymphatics. No submandibular cervical supraclavicular or epitrochlear adenopathy. Chest. Symmetrical hyperinflated prolonged incomplete expiration. Patient has large airway wheezes. I did not hear high-pitched peripheral wheezes but he may not have been moving enough air to produce these. No significant chest wall tenderness. Heart is regular. Rates about 120. Abdomen. Nontender. Positive bowel sounds. Extremities. Trace of pedal edema bilaterally. Arterial. Carotid upstrokes are good. Upper extremity pulses are palpable. Lower extremity pulses nonpalpable. No evidence of lower extremity ischemia. Venous exam. Upper and extremities and neck are normal. Chronic venous stasis over the lower extremities. Skin of the face and hands show no cancerous infectious lesions. Appropriate on dorsum of both forearms. No other areas of skin were examined. The remainder of the physical exam is negative. Impression. 1. Supraventricular tachycardia. Multifactorial including lung disease, coffee , theophylline, bronchodilators. 2. Obstipation present for about 3 months. 3. Possible early right lower lung and left lower lung pneumonia. 4. Acute exacerbation of COPD 5. Severe obstructive lung disease with an asthmatic component which is steroid -dependent 6. Moderate to severe emphysema with normal O2 sats 7. Chronic allergic sinusitis 8. Degenerative joint disease with mild arthritis in both knees. 9. Past history tobacco abuse. Stop smoking 2009 10. Past history of leukemoid reaction which resolved. Suspect there is a recurrence this admission. 11. History of lower extremity edema which appears to be secondary to dietary salt and sitting position. No obvious right heart failure. Plan. 1. I agree with choice of antibiotics and steroid dose. 2. Cardiac monitoring 3. Echocardiogram. She has severe dyspnea on exertion as look for pulmonary hypertension. Also need to check cardiac output 4. Sputum for Gram stain culture and sensitivity. 5. Cold agglutinins 6. Legionella titer 7. Follow-up chest x-ray 8. Agree with ventilation therapy 9. Have added Cytotec 200 mcg by mouth daily to help with constipation. Lactulose and prune juice worked well this morning. Home Medications Medication Instructions Recorded Confirmed Type Albuterol Sulfate [Proair HFA] 2 puff INH Q4H PRN 04/13/16 08/01/16 History Aspirin [Ecotrin] 81 mg PO DAILY 04/13/16 08/01/16 History Montelukast Tab [Singulair Tab] 10 mg PO BID #60 tablet 04/13/16 08/01/16 Rx Theophylline ER Cap (24 Hr) 400 mg PO BID 04/13/16 08/01/16 History [Clint-24] Tiotropium Inhalation [Spiriva 18 mcg INH DAILY 04/13/16 08/01/16 History Handihaler] Fluticasone/Salmeterol 500-50 1 puff INH BID 05/01/16 08/01/16 History [Advair 500-50] Ipratropium/Albuterol Inhaler 1 puff INH QID 05/01/16 08/01/16 History [Combivent Respimat Inhaler] Levofloxacin Tab [Levaquin Tab] 500 mg PO DAILY #5 tablet 05/08/16 08/01/16 Rx Pantoprazole Tab [Protonix Tab] 40 mg PO DAILY #60 tablet 05/08/16 08/01/16 Rx predniSONE TAB [PredniSONE] 20 mg PO BID #60 05/08/16 08/01/16 Rx Clorazepate [Tranxene] 7.5 mg PO BID 08/01/16 08/01/16 History Allergies Allergy/AdvReac Type Severity Reaction Status Date / Time No Known Allergies Allergy Verified 07/31/16 21:27 Exam (Pulmonay) H&P - Constitutional Vitals: Period Temp Pulse Resp BP Sys/Osman Pulse Ox Last 24 Hr 96 F-100.0 F 91-134 16-31 117-138/75-96 90-98 Medical,Surgical,& Family Hx - Medical History Cardio: History of: Hypertension Respiratory: History of: COPD, Pneumonia Hematology: History of: Anemia - Surgical History Abdominal Surgeries: Patient denies: Abdominal Surgery Orthopedic Surgeries: Surgical HX of;: Orthopedic Surgery - Family History Family History: Reports;: Family Diabetes (mother), Family Hypertension (mother) , Additional Family History (COPD (dad)) - Social History Smoking Status: Former smoker Frequency of Alcohol Use: None Type of Drug Use: None Results - Labs CBC & BMP: 07/31/16 21:28 07/31/16 21:28
[2016-08-01 12:25] LABS: Free T4 (Free Thyroxine) 1.05 NG/DL (0.76-1.46); Thyroid Stimulating Hormone 0.103 uIU/ml (0.358-3.74)
--- NOTE | 2016-08-01 18:51 | ECHO Report ---
Marlene Ruben Exam Date: 08/01/2016 14:53 Referring Physician: Technologist: Blanca Ta Age: 61 Ht (in): 66 Wt (lb): 123 Gender: M Exam Location: [facility] Echo Indications: Tachycardia, unspecified, pneumonia, leukocytosis, acute exacerbation of chronic obstructive airway disease BP: 114 / 90 HR: 90 Rhythm: Sinus Technical Quality: poor IMPRESSIONS Left ventricular ejection fraction is estimated at 60 %. Diastolic parameters are equivocal. Mild tricuspid insufficiency with RVSP estimated at 21 mmHg plus the right atrial pressure. This is a limited study MEASUREMENTS (Male / Female) Normal Values 2D ECHO LV Diastolic Diameter PLAX 3.7 cm 4.2 - 5.9 / 3.9 - 5.3 cm LV Systolic Diameter PLAX 1.8 cm LV Fractional Shortening PLAX 52.3 % IVS Diastolic Thickness 1.0 cm 0.6 - 1.0 / 0.6 - 0.9 cm LVPW Diastolic Thickness 1.0 cm 0.6 - 1.0 / 0.6 - 0.9 cm RV Internal Dim ED PLAX 2.8 cm Aortic Root Diameter 3.2 cm LA Systolic Diameter LX 2.1 cm 3.0 - 4.0 / 2.7 - 3.8 cm DOPPLER TR Peak Velocity 227.0 cm/s TR Peak Gradient 20.6 mmHg FINDINGS Left Ventricle Normal left ventricular cavity size. Normal left ventricular wall thickness. Left ventricular ejection fraction is estimated at 60 %. Diastolic parameters are equivocal. Right Ventricle The right ventricle is normal in size and function. Right Atrium The right atrium is normal in size. Left Atrium The left atrium is normal in size. Mitral Valve Morphologically normal mitral valve without significant stenosis or prolapse. There is no mitral regurgitation. Aortic Valve Morphologically normal aortic valve without significant sclerosis or stenosis. There is no aortic regurgitation. Tricuspid Valve Morphologically normal tricuspid valve. Mild tricuspid insufficiency with RVSP estimated at 21 mmHg plus the right atrial pressure. Pulmonic Valve Morphologically normal pulmonic valve without significant stenosis. There is no pulmonic regurgitation. Pericardium Normal pericardium without effusion. Aorta Normal ascending aorta dimension. Latosha Jackman (Electronically Signed) Final Date: 01 Aug 2016 18:50
[2016-08-01] MEDS: AZITHROMYCIN INJ 500 MG in SODIUM CHLORIDE 0.9% 250 ML IV SCH (20:30)
[2016-08-02] MEDS: CEFEPIME 1,000 MG in SODIUM CHLORIDE 0.9% 100 ML IV SCH ×4 (00:03→22:36)
[2016-08-02] MEDS: ALBUTEROL 2.5 MG/3 ML NEB RESP TX SCH ×4 (00:23→20:35)
[2016-08-02 04:38] LABS: Basophils # 0.1 10*3/uL (0.0-0.2); Basophils % 0.3 % (0.0-0.8); Hematocrit 38.1 VOL% (42.0-52.0); Hemoglobin 13.3 GM/DL (14.0-18.0); Immature Granulocytes % 3.7 %; Immature Granulocytes Absolute 0.81 #; Lymphocytes # 1.1 10*3/uL (1.4-4.0); Lymphocytes % 4.8 % (21.2-54.2); Mean Corpuscular HGB Conc 34.9 GM/DL (32-36); Mean Corpuscular Hemoglobin 31 PG (27-34); Mean Corpuscular Volume 90.1 FL (87-102); Monocytes % 4.5 % (1.7-12.7); Neutrophils # 19.3 10*3/uL (1.4-7.4); Neutrophils % 86.7 % (38.7-73.9); Platelet Count 253 T/CUMM (130-400); Red Blood Count 4.23 MC/CUMM (3.8-5.5); Red Cell Distribution Width 13.3 % (9.3-17.3); White Blood Count 22.2 T/CUMM (4-12)
[2016-08-02 05:12] LABS: Blood Urea Nitrogen 24 MG/DL (7-18); Calcium 9.1 MG/DL (8.5-10.1); Glucose 349 MG/DL (74-106); Magnesium 2.1 MG/DL (1.8-2.4); Osmolality,Calculated 285.2 MOS/KG (273-304); Potassium 3.8 MMOL/L (3.5-5.1); Sodium 134 MMOL/L (136-145); Troponin I Only 0.035 NG/ML (0.00-0.045)
[2016-08-02 05:24] LABS: Band Neutrophils 1 % (0-10); Hypochromasia 1+; Lymphocytes 3 % (20-55); Platelet Estimate Adequate; Segmented Neutrophils 93 % (50-85); Total Cells Counted 100
[2016-08-02] MEDS: methylPREDNISolone SOD SUC 40 MG/1 ML VIAL IV SCH ×2 (06:54→17:33)
[2016-08-02] MEDS: FLUTICASONE/SALMETEROL 500-50 DISKUS 14 DOSE INH SCH ×3 (06:57→20:54)
[2016-08-02] MEDS: IPRATROPIUM 500 MCG/2.5 ML NEB RESP TX SCH (07:31)
--- NOTE | 2016-08-02 07:36 | XRay Report ---
XR chest 2V Indication: COPD Comparison: Chest x-ray 07/31/2016 Technique: PA and lateral chest x-ray was performed. Findings: The heart size appears within normal limits. Pulmonary vasculature demonstrates no specific abnormality. Hilar structures demonstrate fairly symmetric appearance. The lungs are clear. The lateral image demonstrates [id number] hyperinflation of the lung parenchyma. Bones and soft tissues demonstrate no evidence of acute pathology. Impression: 1. No active cardiopulmonary disease. 08/02/2016 7:33 AM PROCEDURE INTERPRETED AT [facility] DEPARTMENT OF RADIOLOGY Final Report Signed by: Dr. Zander Alvarez
[2016-08-02] MEDS: CLORAZEPATE 7.5 MG TABLET PO SCH ×2 (08:19→20:53)
[2016-08-02] MEDS: PANTOPRAZOLE 40 MG TABLET PO SCH (08:19)
[2016-08-02] MEDS: METOPROLOL TARTRATE 25 MG TABLET PO SCH ×2 (08:19→20:54)
[2016-08-02] MEDS: miSOPROStol 200 MCG TABLET PO SCH (08:19)
[2016-08-02] MEDS: THEOPHYLLINE ER (24 HR) 400 MG CAPSULE PO SCH ×2 (08:19→20:53)
[2016-08-02] MEDS: MONTELUKAST 10 MG TABLET PO SCH ×2 (08:20→20:54)
[2016-08-02] MEDS: ASPIRIN EC 81 MG TABLET PO SCH (08:20)
--- NOTE | 2016-08-02 10:11 | Pulmonology Progress Note ---
Pulmonary - PN: Subj Interval history: This is a 61-year-old white male whom I saw in pulmonary consultation for evaluation and treatment on 08/01/2016. He is a longtime patient of mine. He was admitted with progressive shortness of breath dyspnea on exertion and a cough productive of yellow-green sputum and he was hearing himself wheeze. He complained of obstipation and mild solid dysphasia. My impressions were 1. Supraventricular tachycardia. Multifactorial including lung disease, coffee , theophylline, bronchodilators. 2. Obstipation present for about 3 months. 3. Possible early right lower lung and left lower lung pneumonia. 4. Acute exacerbation of COPD 5. Severe obstructive lung disease with an asthmatic component which is steroid -dependent 6. Moderate to severe emphysema with normal O2 sats 7. Chronic allergic sinusitis 8. Degenerative joint disease with mild arthritis in both knees. 9. Past history tobacco abuse. Stop smoking 2009 10. Past history of leukemoid reaction which resolved. Suspect there is a recurrence this admission. 11. History of lower extremity edema which appears to be secondary to dietary salt and sitting position. No obvious right heart failure. 08/02/2016. Patient's chest x-ray has improved today. He has faint increased markings in the medial basal segment of the right lower lung and in the lingula. These represent resolving bilateral pneumonia. I did an echocardiogram on him. He has an ejection fraction of 60%. Pulmonary artery pressures at 30. His hemoglobin A1c has been found to be above 9. I am starting the patient on metformin 500 before meals 3 times daily. I have consulted diabetic nurse and have consulted dietary. Theophylline level is 16.7. Patient had 3 bowel movements yesterday. All of this was discussed with the patient today. Labs been reviewed and medicines have been reviewed. Physical exam. Vital signs see below Psychiatric. Oriented 3. Neurologic. Cranial nerves are intact. Long track motor functions intact. Gait is normal but is limited by severe dyspnea on exertion. Face. Symmetrical. Lips and tongue are normal. Neck. Symmetrical. No mass. No meningismus. Lymphatics. No submandibular cervical supraclavicular or epitrochlear adenopathy Chest. Marked hyperinflation with prolonged incomplete expiration patient has a laryngeal tracheal and large airway wheeze. I did not hear any high-pitched peripheral wheezes but I do not think he is moving enough air to produce this. Heart. Regular at 1 10/min. No gallop. Abdomen. Nontender. Positive bowel sounds. No distention. Extremities. No evidence of deep venous thrombophlebitis. The remainder the exam is noncontributory Plan. 08/01/2016. 1. I agree with choice of antibiotics and steroid dose. 2. Cardiac monitoring 3. Echocardiogram. She has severe dyspnea on exertion as look for pulmonary hypertension. Also need to check cardiac output 4. Sputum for Gram stain culture and sensitivity. No positive cultures. 2016. Gram-positive cocci, gram-negative rods and gram-positive rods. Few fungal elements. Greater than 25 white blood cells per high-power field 5. Cold agglutinins. 08/02/2016, negative 6. Legionella titer. 7. Follow-up chest x-ray 8. Agree with ventilation therapy 9. Have added Cytotec 200 mcg by mouth daily to help with constipation. Lactulose and prune juice worked well this morning. 08/02/2016 1. Start metformin 500 before meals 3 times daily. Diabetes mellitus. New diagnosis 2. Dietary consult 3. Diabetic nurse consult. 4. Decrease Solu-Medrol slightly. Exam (Progress Note) - Constitutional Vitals: Period Temp Pulse Resp BP Sys/Osman Pulse Ox Last 24 Hr 97.0 F-98.2 F 90-115 16-20 114-154/73-101 90-100 Results - Labs CBC & BMP: 08/02/16 03:46 08/02/16 03:46
[2016-08-02] MEDS: metFORMIN 500 MG TABLET PO SCH ×2 (11:28→16:46)
[2016-08-02] MEDS ORDERED: DEXTROSE 50% 25 GM/50 ML VIAL IV PRN (13:07)
[2016-08-02] MEDS ORDERED: GLUCAGON 1 MG VIAL IM PRN (13:07)
--- NOTE | 2016-08-02 13:59 | Hospitalist Progress Note ---
Assessment and Plan (1) Acute exacerbation of chronic obstructive airways disease Status: Acute Assessment and plan: Continue standard COPD care as recommended by Dr. Neely. Current Visit: No Hospitalist: Subjective Interval history: This is a 61-year-old patient of Dr. Neely. The patient is admitted to the hospital for COPD exacerbation and Dr. Neely is assuming care of the patient Exam - Constitutional Vitals: Period Temp Pulse Resp BP Sys/Osman Pulse Ox Last 24 Hr 97.0 F-98.2 F 90-115 16-20 125-154/73-101 90-100 Exam: The patient's examination is improving with reduced resistance to breathing and improved exercise capacity. Results - Labs CBC & BMP: 08/02/16 03:46 08/02/16 03:46 Lab Results: I have reviewed the past 24 hour labs
[2016-08-02] MEDS: INSULIN REGULAR 100 UNIT/ML SUBCUT SCH ×2 (16:46→21:49)
[2016-08-02] MEDS: AZITHROMYCIN INJ 500 MG in SODIUM CHLORIDE 0.9% 250 ML IV SCH (20:51)
[2016-08-03] MEDS: ALBUTEROL 2.5 MG/3 ML NEB RESP TX SCH ×4 (00:46→19:12)
[2016-08-03] MEDS: methylPREDNISolone SOD SUC 40 MG/1 ML VIAL IV SCH ×2 (05:53→18:19)
[2016-08-03] MEDS ORDERED: KETOROLAC 30 MG/1 ML VIAL IV ONE (09:36)
[2016-08-03] MEDS: THEOPHYLLINE ER (24 HR) 400 MG CAPSULE PO SCH ×2 (09:38→21:11)
[2016-08-03] MEDS: miSOPROStol 200 MCG TABLET PO SCH (09:38)
[2016-08-03] MEDS: CLORAZEPATE 7.5 MG TABLET PO SCH ×2 (09:38→21:11)
[2016-08-03] MEDS: MONTELUKAST 10 MG TABLET PO SCH ×2 (09:39→21:11)
[2016-08-03] MEDS: PANTOPRAZOLE 40 MG TABLET PO SCH (09:39)
[2016-08-03] MEDS: METOPROLOL TARTRATE 25 MG TABLET PO SCH ×2 (09:39→21:11)
[2016-08-03] MEDS: FLUTICASONE/SALMETEROL 500-50 DISKUS 14 DOSE INH SCH ×2 (09:39→21:13)
[2016-08-03] MEDS: metFORMIN 500 MG TABLET PO SCH ×3 (09:39→16:37)
[2016-08-03] MEDS: ASPIRIN EC 81 MG TABLET PO SCH (09:39)
--- NOTE | 2016-08-03 09:57 | Pulmonology Progress Note ---
Pulmonary - PN: Subj Interval history: This is a 61-year-old white male whom I saw in pulmonary consultation for evaluation and treatment on 08/01/2016. He is a longtime patient of mine. He was admitted with progressive shortness of breath dyspnea on exertion and a cough productive of yellow-green sputum and he was hearing himself wheeze. He complained of obstipation and mild solid dysphasia. My impressions were 1. Supraventricular tachycardia. Multifactorial including lung disease, coffee , theophylline, bronchodilators. 2. Obstipation present for about 3 months. 3. Possible early right lower lung and left lower lung pneumonia. 4. Acute exacerbation of COPD 5. Severe obstructive lung disease with an asthmatic component which is steroid -dependent 6. Moderate to severe emphysema with normal O2 sats 7. Chronic allergic sinusitis 8. Degenerative joint disease with mild arthritis in both knees. 9. Past history tobacco abuse. Stop smoking 2009 10. Past history of leukemoid reaction which resolved. Suspect there is a recurrence this admission. 11. History of lower extremity edema which appears to be secondary to dietary salt and sitting position. No obvious right heart failure. 08/02/2016. Patient's chest x-ray has improved today. He has faint increased markings in the medial basal segment of the right lower lung and in the lingula. These represent resolving bilateral pneumonia. I did an echocardiogram on him. He has an ejection fraction of 60%. Pulmonary artery pressures at 30. His hemoglobin A1c has been found to be above 9. I am starting the patient on metformin 500 before meals 3 times daily. I have consulted diabetic nurse and have consulted dietary. Theophylline level is 16.7. Patient had 3 bowel movements yesterday. All of this was discussed with the patient today. Labs been reviewed and medicines have been reviewed. 08/03/2016. Patient was seen along with his and along with Steven Reed nurse practitioner. He was instructed by diabetic nursing and dietary yesterday. His glucoses are better. Yesterday he was started on Glucophage 500 mg before meals 3 times daily and so far is been able to tolerate it well. Patient will need a little more treatment on his glucoses before he goes home. I have reduced his steroids and his severe lung disease is stable so far. He has had bilateral pneumonia which is almost resolved on his chest x-ray. Today he has developed posterior thoracic pain at the T6 through T10 area. This spread slightly to the right and is likely muscular as the pain is reproduced with pressure over this area. I am going to start the patient on Flector patch every 12 hours and I will give him 10 mg of Toradol IV push. Theophylline level was 15.7. This patient is making good progress from a pulmonary standpoint. Diabetes has been established as a new diagnosis and treatment has been initiated. I think there will need to be in the hospital for Saturday or Saturday if all goes well. I will be seeing him this weekend. Physical exam. Vital signs see below Psychiatric. Oriented 3. Neurologic. Cranial nerves are intact. Long track motor functions intact. Gait is normal but is limited by severe dyspnea on exertion. Face. Symmetrical. Lips and tongue are normal. Neck. Symmetrical. No mass. No meningismus. Lymphatics. No submandibular cervical supraclavicular or epitrochlear adenopathy Chest. Marked hyperinflation with prolonged incomplete expiration patient has a laryngeal tracheal and large airway wheeze which has improved.. I did not hear any high-pitched peripheral wheezes but I do not think he is moving enough air to produce this. Has developed right posterior chest tenderness in the area of T6 through T10. Heart. Regular at 1 10/min. No gallop. Abdomen. Nontender. Positive bowel sounds. No distention. Extremities. No evidence of deep venous thrombophlebitis. The remainder the exam is noncontributory Plan. 08/01/2016. 1. I agree with choice of antibiotics and steroid dose. 2. Cardiac monitoring 3. Echocardiogram. She has severe dyspnea on exertion as look for pulmonary hypertension. Also need to check cardiac output 4. Sputum for Gram stain culture and sensitivity. No positive cultures. 2016. Gram-positive cocci, gram-negative rods and gram-positive rods. Few fungal elements. Greater than 25 white blood cells per high-power field 5. Cold agglutinins. 08/02/2016, negative 6. Legionella titer. 7. Follow-up chest x-ray 8. Agree with ventilation therapy 9. Have added Cytotec 200 mcg by mouth daily to help with constipation. Lactulose and prune juice worked well this morning. 08/02/2016 1. Start metformin 500 before meals 3 times daily. Diabetes mellitus. New diagnosis 2. Dietary consult 3. Diabetic nurse consult. 4. Decrease Solu-Medrol slightly. 08/03/2016. 1. See today's note above. 2. Flector patch 3. Toradol Exam (Progress Note) - Constitutional Vitals: Period Temp Pulse Resp BP Sys/Osman Pulse Ox Last 24 Hr 96.6 F-98.2 F 89-111 16-20 118-135/76-90 94-98 Results - Labs CBC & BMP: 08/02/16 03:46 08/02/16 03:46
[2016-08-03] MEDS: FLUCONAZOLE INJ 200 MG in PREMIX 1 EACH IV SCH (10:38)
[2016-08-03] MEDS: CEFEPIME 1,000 MG in SODIUM CHLORIDE 0.9% 100 ML IV SCH ×2 (10:39→16:38)
[2016-08-03] MEDS: INSULIN REGULAR 100 UNIT/ML SUBCUT SCH ×4 (10:39→21:24)
[2016-08-03] MEDS: LACTULOSE 20 GM/30 ML UDCUP PO PRN (10:40)
--- NOTE | 2016-08-03 11:06 | Hospitalist Progress Note ---
Assessment and Plan (1) Acute exacerbation of chronic obstructive airways disease Status: Acute Assessment and plan: Continue standard COPD care as recommended by Dr. Neely. Current Visit: No Hospitalist: Subjective Interval history: The patient is improving lung function each day. Is having significant back pain issue and this is been addressed by Dr. Neely. Exam - Constitutional Vitals: Period Temp Pulse Resp BP Sys/Osman Pulse Ox Last 24 Hr 96.6 F-98.2 F 89-111 16-20 118-135/76-90 94-98 Exam: The patient's examination is improving with reduced resistance to breathing and improved exercise capacity. Results - Labs CBC & BMP: 08/02/16 03:46 08/02/16 03:46 Lab Results: I have reviewed the past 24 hour labs
[2016-08-03] MEDS: DICLOFENAC 1.3% PATCH 5/PACK TRANSDERM SCH ×2 (11:55→21:12)
[2016-08-03] MEDS: AZITHROMYCIN INJ 500 MG in SODIUM CHLORIDE 0.9% 250 ML IV SCH (21:11)
[2016-08-04] MEDS: CEFEPIME 1,000 MG in SODIUM CHLORIDE 0.9% 100 ML IV SCH ×4 (00:53→23:55)
[2016-08-04] MEDS: ALBUTEROL 2.5 MG/3 ML NEB RESP TX SCH ×4 (04:00→20:03)
[2016-08-04] MEDS: methylPREDNISolone SOD SUC 40 MG/1 ML VIAL IV SCH ×2 (06:07→17:11)
[2016-08-04] MEDS: MONTELUKAST 10 MG TABLET PO SCH ×2 (09:38→21:14)
[2016-08-04] MEDS: ASPIRIN EC 81 MG TABLET PO SCH (09:38)
[2016-08-04] MEDS: miSOPROStol 200 MCG TABLET PO SCH (09:38)
[2016-08-04] MEDS: THEOPHYLLINE ER (24 HR) 400 MG CAPSULE PO SCH ×2 (09:38→21:15)
[2016-08-04] MEDS: METOPROLOL TARTRATE 25 MG TABLET PO SCH ×2 (09:38→21:16)
[2016-08-04] MEDS: PANTOPRAZOLE 40 MG TABLET PO SCH (09:39)
[2016-08-04] MEDS: FLUTICASONE/SALMETEROL 500-50 DISKUS 14 DOSE INH SCH (09:39)
[2016-08-04] MEDS: KETOROLAC 15 MG/1 ML VIAL IV SCH ×2 (09:39→21:14)
[2016-08-04] MEDS: CLORAZEPATE 7.5 MG TABLET PO SCH ×2 (09:39→21:14)
[2016-08-04] MEDS: INSULIN REGULAR 100 UNIT/ML SUBCUT SCH ×4 (09:40→21:16)
[2016-08-04] MEDS: DICLOFENAC 1.3% PATCH 5/PACK TRANSDERM SCH ×2 (09:44→21:23)
[2016-08-04] MEDS: metFORMIN 500 MG TABLET PO SCH ×3 (09:44→17:11)
--- NOTE | 2016-08-04 10:30 | Pulmonology Progress Note ---
Pulmonary - PN: Subj Interval history: This is a 61-year-old white male whom I saw in pulmonary consultation for evaluation and treatment on 08/01/2016. He is a longtime patient of mine. He was admitted with progressive shortness of breath dyspnea on exertion and a cough productive of yellow-green sputum and he was hearing himself wheeze. He complained of obstipation and mild solid dysphasia. My impressions were 1. Supraventricular tachycardia. Multifactorial including lung disease, coffee , theophylline, bronchodilators. 2. Obstipation present for about 3 months. 3. Possible early right lower lung and left lower lung pneumonia. 4. Acute exacerbation of COPD 5. Severe obstructive lung disease with an asthmatic component which is steroid -dependent 6. Moderate to severe emphysema with normal O2 sats 7. Chronic allergic sinusitis 8. Degenerative joint disease with mild arthritis in both knees. 9. Past history tobacco abuse. Stop smoking 2009 10. Past history of leukemoid reaction which resolved. Suspect there is a recurrence this admission. 11. History of lower extremity edema which appears to be secondary to dietary salt and sitting position. No obvious right heart failure. 08/02/2016. Patient's chest x-ray has improved today. He has faint increased markings in the medial basal segment of the right lower lung and in the lingula. These represent resolving bilateral pneumonia. I did an echocardiogram on him. He has an ejection fraction of 60%. Pulmonary artery pressures at 30. His hemoglobin A1c has been found to be above 9. I am starting the patient on metformin 500 before meals 3 times daily. I have consulted diabetic nurse and have consulted dietary. Theophylline level is 16.7. Patient had 3 bowel movements yesterday. All of this was discussed with the patient today. Labs been reviewed and medicines have been reviewed. 08/03/2016. Patient was seen along with his and along with Steven Reed nurse practitioner. He was instructed by diabetic nursing and dietary yesterday. His glucoses are better. Yesterday he was started on Glucophage 500 mg before meals 3 times daily and so far is been able to tolerate it well. Patient will need a little more treatment on his glucoses before he goes home. I have reduced his steroids and his severe lung disease is stable so far. He has had bilateral pneumonia which is almost resolved on his chest x-ray. Today he has developed posterior thoracic pain at the T6 through T10 area. This spread slightly to the right and is likely muscular as the pain is reproduced with pressure over this area. I am going to start the patient on Flector patch every 12 hours and I will give him 10 mg of Toradol IV push. Theophylline level was 15.7. This patient is making good progress from a pulmonary standpoint. Diabetes has been established as a new diagnosis and treatment has been initiated. I think there will need to be in the hospital for Saturday or Saturday if all goes well. I will be seeing him this weekend. 08/04/2016. Dr. Wade Bean has asked me to take this patient in transfer. I accept him in transfer. Patient seen along with his . He still having wheezing and trouble mobilizing sputum. His glucoses were down to 158 this morning. His theophylline level was 15.7. Patient still has some musculoskeletal back pain and I am going to repeat P Toradol 10 mg IV push now and then 12 hours later. He denies any GI symptoms. He says he had bowel movements yesterday and he feels like his obstipation is just about resolved. He has had no intolerance of his metformin thus far. He has a normal creatinine is 0.8. On 07/31/2016 sputum's grew a gram-negative roman. ID and sensitivities have yet to be reported. Physical exam. Vital signs see below Psychiatric. Oriented 3. Neurologic. Cranial nerves are intact. Long track motor functions intact. Gait is normal but is limited by severe dyspnea on exertion. Face. Symmetrical. Lips and tongue are normal. Neck. Symmetrical. No mass. No meningismus. Lymphatics. No submandibular cervical supraclavicular or epitrochlear adenopathy Chest. Marked hyperinflation with prolonged incomplete expiration patient has a laryngeal tracheal and large airway wheeze which has improved.. I did not hear any high-pitched peripheral wheezes but I do not think he is moving enough air to produce this. Has developed right posterior chest tenderness in the area of T6 through T10. Heart. Regular at 1 10/min. No gallop. Abdomen. Nontender. Positive bowel sounds. No distention. Extremities. No evidence of deep venous thrombophlebitis. The remainder the exam is noncontributory Plan. 08/01/2016. 1. I agree with choice of antibiotics and steroid dose. 2. Cardiac monitoring 3. Echocardiogram. She has severe dyspnea on exertion as look for pulmonary hypertension. Also need to check cardiac output 4. Sputum for Gram stain culture and sensitivity. No positive cultures. 2016. Gram-positive cocci, gram-negative rods and gram-positive rods. Few fungal elements. Greater than 25 white blood cells per high-power field 5. Cold agglutinins. 08/02/2016, negative 6. Legionella titer. 7. Follow-up chest x-ray 8. Agree with ventilation therapy 9. Have added Cytotec 200 mcg by mouth daily to help with constipation. Lactulose and prune juice worked well this morning. 08/02/2016 1. Start metformin 500 before meals 3 times daily. Diabetes mellitus. New diagnosis 2. Dietary consult 3. Diabetic nurse consult. 4. Decrease Solu-Medrol slightly. 08/03/2016. 1. See today's note above. 2. Flector patch 3. Toradol 08/04/2016. 1. Accept the patient in transfer from Dr. Wade Bean 2. See my note 08/04/2016. Above. Exam (Progress Note) - Constitutional Vitals: Period Temp Pulse Resp BP Sys/Osman Pulse Ox Last 24 Hr 97.1 F-99.4 F 70-104 16-20 120-135/70-87 90-98 Results - Labs CBC & BMP: 08/02/16 03:46 08/02/16 03:46
[2016-08-04] MEDS: FLUCONAZOLE INJ 200 MG in PREMIX 1 EACH IV SCH (12:41)
[2016-08-04] MEDS: AZITHROMYCIN INJ 500 MG in SODIUM CHLORIDE 0.9% 250 ML IV SCH (21:17)
[2016-08-05] MEDS: ALBUTEROL 2.5 MG/3 ML NEB RESP TX SCH ×4 (00:45→19:56)
[2016-08-05] MEDS: FLUTICASONE/SALMETEROL 500-50 DISKUS 14 DOSE INH SCH ×3 (02:00→21:39)
[2016-08-05] MEDS: methylPREDNISolone SOD SUC 40 MG/1 ML VIAL IV SCH ×2 (06:36→17:51)
[2016-08-05] MEDS: PANTOPRAZOLE 40 MG TABLET PO SCH (09:20)
[2016-08-05] MEDS: THEOPHYLLINE ER (24 HR) 400 MG CAPSULE PO SCH ×2 (09:20→21:38)
[2016-08-05] MEDS: CLORAZEPATE 7.5 MG TABLET PO SCH ×2 (09:20→21:38)
[2016-08-05] MEDS: miSOPROStol 200 MCG TABLET PO SCH (09:20)
[2016-08-05] MEDS: metFORMIN 500 MG TABLET PO SCH ×3 (09:20→16:40)
[2016-08-05] MEDS: CEFEPIME 1,000 MG in SODIUM CHLORIDE 0.9% 100 ML IV SCH (09:21)
[2016-08-05] MEDS: METOPROLOL TARTRATE 25 MG TABLET PO SCH ×2 (09:21→21:38)
[2016-08-05] MEDS: ASPIRIN EC 81 MG TABLET PO SCH (09:21)
[2016-08-05] MEDS: INSULIN REGULAR 100 UNIT/ML SUBCUT SCH ×4 (09:21→21:45)
[2016-08-05] MEDS: DICLOFENAC 1.3% PATCH 5/PACK TRANSDERM SCH ×2 (09:28→21:39)
[2016-08-05] MEDS: MONTELUKAST 10 MG TABLET PO SCH ×2 (09:29→21:39)
[2016-08-05] MEDS: FLUCONAZOLE INJ 200 MG in PREMIX 1 EACH IV SCH (11:22)
--- NOTE | 2016-08-05 12:10 | Pulmonology Progress Note ---
Pulmonary - PN: Subj Interval history: This is a 61-year-old white male whom I saw in pulmonary consultation for evaluation and treatment on 08/01/2016. He is a longtime patient of mine. He was admitted with progressive shortness of breath dyspnea on exertion and a cough productive of yellow-green sputum and he was hearing himself wheeze. He complained of obstipation and mild solid dysphasia. My impressions were 1. Supraventricular tachycardia. Multifactorial including lung disease, coffee , theophylline, bronchodilators. 2. Obstipation present for about 3 months. 3. Possible early right lower lung and left lower lung pneumonia. 4. Acute exacerbation of COPD 5. Severe obstructive lung disease with an asthmatic component which is steroid -dependent 6. Moderate to severe emphysema with normal O2 sats 7. Chronic allergic sinusitis 8. Degenerative joint disease with mild arthritis in both knees. 9. Past history tobacco abuse. Stop smoking 2009 10. Past history of leukemoid reaction which resolved. Suspect there is a recurrence this admission. 11. History of lower extremity edema which appears to be secondary to dietary salt and sitting position. No obvious right heart failure. 08/02/2016. Patient's chest x-ray has improved today. He has faint increased markings in the medial basal segment of the right lower lung and in the lingula. These represent resolving bilateral pneumonia. I did an echocardiogram on him. He has an ejection fraction of 60%. Pulmonary artery pressures at 30. His hemoglobin A1c has been found to be above 9. I am starting the patient on metformin 500 before meals 3 times daily. I have consulted diabetic nurse and have consulted dietary. Theophylline level is 16.7. Patient had 3 bowel movements yesterday. All of this was discussed with the patient today. Labs been reviewed and medicines have been reviewed. 08/03/2016. Patient was seen along with his and along with Steven Reed nurse practitioner. He was instructed by diabetic nursing and dietary yesterday. His glucoses are better. Yesterday he was started on Glucophage 500 mg before meals 3 times daily and so far is been able to tolerate it well. Patient will need a little more treatment on his glucoses before he goes home. I have reduced his steroids and his severe lung disease is stable so far. He has had bilateral pneumonia which is almost resolved on his chest x-ray. Today he has developed posterior thoracic pain at the T6 through T10 area. This spread slightly to the right and is likely muscular as the pain is reproduced with pressure over this area. I am going to start the patient on Flector patch every 12 hours and I will give him 10 mg of Toradol IV push. Theophylline level was 15.7. This patient is making good progress from a pulmonary standpoint. Diabetes has been established as a new diagnosis and treatment has been initiated. I think there will need to be in the hospital for Saturday or Saturday if all goes well. I will be seeing him this weekend. 08/04/2016. Dr. Wade Bean has asked me to take this patient in transfer. I accept him in transfer. Patient seen along with his . He still having wheezing and trouble mobilizing sputum. His glucoses were down to 158 this morning. His theophylline level was 15.7. Patient still has some musculoskeletal back pain and I am going to repeat P Toradol 10 mg IV push now and then 12 hours later. He denies any GI symptoms. He says he had bowel movements yesterday and he feels like his obstipation is just about resolved. He has had no intolerance of his metformin thus far. He has a normal creatinine is 0.8. On 07/31/2016 sputum's grew a gram-negative roman. ID and sensitivities have yet to be reported. 08/05/2016. Patient's been able to move around in the room a little bit. His glucoses are coming under a little better control. He has new cultures from his sputum. I have stopped his cephapirin and I have begun Levaquin based on the LOU's. Patient remains in a regular sinus rhythm. His rate is much better controlled. Lymphatic continue his increase activity. He still has significant wheezing, shortness of breath and dyspnea on exertion. I have added glipizide 2.5 mg twice daily to the patient's diabetic regimen. I have explained to him that good control of glucose will help with decrease in the viscosity of his sputum. Bowel movements are better. Physical exam. Vital signs see below Psychiatric. Oriented 3. Neurologic. Cranial nerves are intact. Long track motor functions intact. Gait is normal but is limited by severe dyspnea on exertion. Face. Symmetrical. Lips and tongue are normal. Neck. Symmetrical. No mass. No meningismus. Lymphatics. No submandibular cervical supraclavicular or epitrochlear adenopathy Chest. Marked hyperinflation with prolonged incomplete expiration patient has a laryngeal tracheal and large airway wheeze which has improved.. I did not hear any high-pitched peripheral wheezes but I do not think he is moving enough air to produce this. Has developed right posterior chest tenderness in the area of T6 through T10. Heart. Regular at 1 10/min. No gallop. Abdomen. Nontender. Positive bowel sounds. No distention. Extremities. No evidence of deep venous thrombophlebitis. The remainder the exam is noncontributory Plan. 08/01/2016. 1. I agree with choice of antibiotics and steroid dose. 2. Cardiac monitoring 3. Echocardiogram. She has severe dyspnea on exertion as look for pulmonary hypertension. Also need to check cardiac output 4. Sputum for Gram stain culture and sensitivity. No positive cultures. 2016. Gram-positive cocci, gram-negative rods and gram-positive rods. Few fungal elements. Greater than 25 white blood cells per high-power field 5. Cold agglutinins. 08/02/2016, negative 6. Legionella titer. 7. Follow-up chest x-ray 8. Agree with ventilation therapy 9. Have added Cytotec 200 mcg by mouth daily to help with constipation. Lactulose and prune juice worked well this morning. 08/02/2016 1. Start metformin 500 before meals 3 times daily. Diabetes mellitus. New diagnosis 2. Dietary consult 3. Diabetic nurse consult. 4. Decrease Solu-Medrol slightly. 08/03/2016. 1. See today's note above. 2. Flector patch 3. Toradol 08/04/2016. 1. Accept the patient in transfer from Dr. Wade Bean 2. See my note 08/04/2016. Above. 08/05/2016. 1. See today's note above. 2. Start glipizide 3. Change antibiotic to Levaquin based on cultures and sensitivities and LOU Exam (Progress Note) - Constitutional Vitals: Period Temp Pulse Resp BP Sys/Osman Pulse Ox Last 24 Hr 97.1 F-98.7 F 70-98 17-20 106-140/67-83 94-100 Results - Labs CBC & BMP: 08/02/16 03:46 08/02/16 03:46
[2016-08-05] MEDS: LEVOFLOXACIN INJ 500 MG in PREMIX 1 EACH IV SCH (13:10)
[2016-08-05] MEDS: glipiZIDE 5 MG TABLET PO SCH (16:40)
[2016-08-05] MEDS: LACTULOSE 20 GM/30 ML UDCUP PO PRN (17:50)
[2016-08-06] MEDS: ALBUTEROL 2.5 MG/3 ML NEB RESP TX SCH ×4 (01:18→19:12)
[2016-08-06] MEDS: methylPREDNISolone SOD SUC 40 MG/1 ML VIAL IV SCH ×2 (06:42→17:13)
[2016-08-06] MEDS: ASPIRIN EC 81 MG TABLET PO SCH (09:15)
[2016-08-06] MEDS: CLORAZEPATE 7.5 MG TABLET PO SCH ×2 (09:15→22:09)
[2016-08-06] MEDS: miSOPROStol 200 MCG TABLET PO SCH (09:15)
[2016-08-06] MEDS: glipiZIDE 5 MG TABLET PO SCH ×2 (09:15→17:11)
[2016-08-06] MEDS: MONTELUKAST 10 MG TABLET PO SCH ×2 (09:15→22:09)
[2016-08-06] MEDS: metFORMIN 500 MG TABLET PO SCH ×3 (09:15→17:11)
[2016-08-06] MEDS: METOPROLOL TARTRATE 25 MG TABLET PO SCH ×2 (09:16→22:09)
[2016-08-06] MEDS: DICLOFENAC 1.3% PATCH 5/PACK TRANSDERM SCH ×2 (09:16→22:10)
[2016-08-06] MEDS: THEOPHYLLINE ER (24 HR) 400 MG CAPSULE PO SCH ×2 (09:16→22:09)
[2016-08-06] MEDS: PANTOPRAZOLE 40 MG TABLET PO SCH (09:16)
[2016-08-06] MEDS: FLUTICASONE/SALMETEROL 500-50 DISKUS 14 DOSE INH SCH ×2 (09:19→22:11)
[2016-08-06] MEDS: INSULIN REGULAR 100 UNIT/ML SUBCUT SCH ×4 (09:59→22:09)
[2016-08-06] MEDS: FLUCONAZOLE INJ 200 MG in PREMIX 1 EACH IV SCH (10:51)
--- NOTE | 2016-08-06 10:57 | Pulmonology Progress Note ---
Pulmonary - PN: Subj Interval history: Steven Reed, ANP-BC, GNP-BC, acting as scribe for Dr. Ayden Schneider This is a 61-year-old white male who we saw in pulmonary consultation for evaluation and treatment on 08/01/2016. He is a longtime patient of Dr. Schneider. He was admitted with progressive shortness of breath dyspnea on exertion and a cough productive of yellow-green sputum and he was hearing himself wheeze. He complained of obstipation and mild solid dysphasia. At the time of our initial consultation, our impressions were: 1. Supraventricular tachycardia. Multifactorial including lung disease, coffee , theophylline, bronchodilators. 2. Obstipation present for about 3 months. 3. Possible early right lower lung and left lower lung pneumonia. 4. Acute exacerbation of COPD 5. Severe obstructive lung disease with an asthmatic component which is steroid -dependent 6. Moderate to severe emphysema with normal O2 sats 7. Chronic allergic sinusitis 8. Degenerative joint disease with mild arthritis in both knees. 9. Past history tobacco abuse. Stop smoking 2009 10. Past history of leukemoid reaction which resolved. Suspect there is a recurrence this admission. 11. History of lower extremity edema which appears to be secondary to dietary salt and sitting position. No obvious right heart failure. 08/02/2016. Patient's chest x-ray has improved today. He has faint increased markings in the medial basal segment of the right lower lung and in the lingula. These represent resolving bilateral pneumonia. I did an echocardiogram on him. He has an ejection fraction of 60%. Pulmonary artery pressures at 30. His hemoglobin A1c has been found to be above 9. I am starting the patient on metformin 500 before meals 3 times daily. I have consulted diabetic nurse and have consulted dietary. Theophylline level is 16.7. Patient had 3 bowel movements yesterday. All of this was discussed with the patient today. Labs been reviewed and medicines have been reviewed. 08/03/2016. Patient was seen along with his and along with Steven Reed nurse practitioner. He was instructed by diabetic nursing and dietary yesterday. His glucoses are better. Yesterday he was started on Glucophage 500 mg before meals 3 times daily and so far is been able to tolerate it well. Patient will need a little more treatment on his glucoses before he goes home. I have reduced his steroids and his severe lung disease is stable so far. He has had bilateral pneumonia which is almost resolved on his chest x-ray. Today he has developed posterior thoracic pain at the T6 through T10 area. This spread slightly to the right and is likely muscular as the pain is reproduced with pressure over this area. I am going to start the patient on Flector patch every 12 hours and I will give him 10 mg of Toradol IV push. Theophylline level was 15.7. This patient is making good progress from a pulmonary standpoint. Diabetes has been established as a new diagnosis and treatment has been initiated. I think there will need to be in the hospital for Saturday or Saturday if all goes well. I will be seeing him this weekend. 08/04/2016. Dr. Wade Bean has asked me to take this patient in transfer. I accept him in transfer. Patient seen along with his . He still having wheezing and trouble mobilizing sputum. His glucoses were down to 158 this morning. His theophylline level was 15.7. Patient still has some musculoskeletal back pain and I am going to repeat P Toradol 10 mg IV push now and then 12 hours later. He denies any GI symptoms. He says he had bowel movements yesterday and he feels like his obstipation is just about resolved. He has had no intolerance of his metformin thus far. He has a normal creatinine is 0.8. On 07/31/2016 sputum's grew a gram-negative roman. ID and sensitivities have yet to be reported. 08/05/2016. Patient's been able to move around in the room a little bit. His glucoses are coming under a little better control. He has new cultures from his sputum. I have stopped his cephapirin and I have begun Levaquin based on the LOU's. Patient remains in a regular sinus rhythm. His rate is much better controlled. Lymphatic continue his increase activity. He still has significant wheezing, shortness of breath and dyspnea on exertion. I have added glipizide 2.5 mg twice daily to the patient's diabetic regimen. I have explained to him that good control of glucose will help with decrease in the viscosity of his sputum. Bowel movements are better. 08/06/2016. The patient was seen today along with his . The patient's breathing continues to improve, but he still has significant shortness of breath , dyspnea on exertion, and mild expiratory wheeze. However, given his improvement we will obtain complete pulmonary function test with pre-and postbronchodilator spirometry. Glipizide was added yesterday. On review glucoses, does not appear to this medication is taken effect yet. We will continue to monitor this. Sputum has grown Acinetobacter lwoffi and Maria G. He is being treated with fluconazole and Levaquin. Medications have been reviewed. We made no changes today. Labs been reviewed. No new labs were drawn today. Exam (Progress Note) - Constitutional Vitals: Period Temp Pulse Resp BP Sys/Osman Pulse Ox Last 24 Hr 96.3 F-97.8 F 79-111 18-20 126-145/69-96 93-99 Exam: Chest is hyperinflated with prolonged incomplete expiration. The tracheal enlargement airway wheezes are improving. Heart no gallop Abdomen is nontender nondistended; bowel sounds are positive 4 Extremities with nothing to suggest acute deep venous thrombophlebitis Psychiatric oriented 3 Neurologic long-term motor function is intact Plan: Complete pulmonary function test with pre-and postbronchodilator spirometry. Repeat chest x-ray and labs in the morning. Watch her glucoses carefully. See orders. Results - Labs CBC & BMP: 08/02/16 03:46 08/02/16 03:46
[2016-08-06 11:04] LABS: Basophils # 0.1 10*3/uL (0.0-0.2); Basophils % 0.4 % (0.0-0.8); Eosinophils % 0.1 % (0.00-10.9); Hematocrit 37.8 VOL% (42.0-52.0); Immature Granulocytes % 8.1 %; Immature Granulocytes Absolute 1.43 #; Lymphocytes # 1.1 10*3/uL (1.4-4.0); Lymphocytes % 6.4 % (21.2-54.2); Mean Corpuscular HGB Conc 34.4 GM/DL (32-36); Mean Corpuscular Hemoglobin 32 PG (27-34); Mean Corpuscular Volume 93.1 FL (87-102); Mean Platelet Volume 9.6 FL (9.6-12.0); Monocytes # 0.1 10*3/uL (0.11-0.8); Monocytes % 0.8 % (1.7-12.7); Neutrophils # 14.9 10*3/uL (1.4-7.4); Neutrophils % 84.2 % (38.7-73.9); Platelet Count 283 T/CUMM (130-400); Red Blood Count 4.06 MC/CUMM (3.8-5.5); Red Cell Distribution Width 13.3 % (9.3-17.3); White Blood Count 17.7 T/CUMM (4-12)
[2016-08-06 11:34] LABS: Band Neutrophils 5 % (0-10); Hypochromasia 1+; Lymphocytes 9 % (20-55); Platelet Estimate Normal; Segmented Neutrophils 82 % (50-85); Total Cells Counted 100
[2016-08-06 11:40] LABS: Calcium 8.7 MG/DL (8.5-10.1); Magnesium 1.8 MG/DL (1.8-2.4); Osmolality,Calculated 287.5 MOS/KG (273-304); Potassium 4.1 MMOL/L (3.5-5.1)
--- NOTE | 2016-08-06 11:55 | XRay Report ---
XR chest 2V Indication: COPD, follow-up pneumonia Comparison: Chest x-ray dated August 02, 2016 Technique: Frontal and lateral views of the chest. Findings: The cardiomediastinal silhouette is stable in configuration. Chronic change of the lungs without focal consolidation, pleural effusion, or pneumothorax. There is mild hyperinflation of the lungs which may reflect COPD. Visualized osseous and surrounding soft tissue structures appear grossly unchanged. IMPRESSION: Stable chest x-ray. PROCEDURE INTERPRETED AT [facility] DEPARTMENT OF RADIOLOGY Final Report Signed by: Dr All John
[2016-08-06] MEDS: LEVOFLOXACIN INJ 500 MG in PREMIX 1 EACH IV SCH (12:21)
[2016-08-07] MEDS: ALBUTEROL 2.5 MG/3 ML NEB RESP TX SCH ×4 (00:38→20:13)
[2016-08-07] MEDS: methylPREDNISolone SOD SUC 40 MG/1 ML VIAL IV SCH ×2 (06:44→18:11)
[2016-08-07] MEDS: METOPROLOL TARTRATE 25 MG TABLET PO SCH ×2 (08:23→21:53)
[2016-08-07] MEDS: MONTELUKAST 10 MG TABLET PO SCH ×2 (08:23→21:53)
[2016-08-07] MEDS: THEOPHYLLINE ER (24 HR) 400 MG CAPSULE PO SCH ×2 (08:23→21:53)
[2016-08-07] MEDS: INSULIN REGULAR 100 UNIT/ML SUBCUT SCH ×4 (08:23→22:05)
[2016-08-07] MEDS: metFORMIN 500 MG TABLET PO SCH ×3 (08:23→16:25)
[2016-08-07] MEDS: ASPIRIN EC 81 MG TABLET PO SCH (08:23)
[2016-08-07] MEDS: miSOPROStol 200 MCG TABLET PO SCH (08:23)
[2016-08-07] MEDS: PANTOPRAZOLE 40 MG TABLET PO SCH (08:23)
[2016-08-07] MEDS: CLORAZEPATE 7.5 MG TABLET PO SCH ×2 (08:23→21:53)
[2016-08-07] MEDS: glipiZIDE 5 MG TABLET PO SCH ×2 (08:24→16:24)
[2016-08-07] MEDS: FLUTICASONE/SALMETEROL 500-50 DISKUS 14 DOSE INH SCH ×2 (08:25→21:54)
[2016-08-07] MEDS: DICLOFENAC 1.3% PATCH 5/PACK TRANSDERM SCH ×2 (09:43→21:53)
[2016-08-07] MEDS: FLUCONAZOLE INJ 200 MG in PREMIX 1 EACH IV SCH (09:44)
--- NOTE | 2016-08-07 11:43 | Pulmonology Progress Note ---
Pulmonary - PN: Subj Interval history: This is a 61-year-old white male whom I saw in pulmonary consultation for evaluation and treatment on 08/01/2016. He is a longtime patient of mine. He was admitted with progressive shortness of breath dyspnea on exertion and a cough productive of yellow-green sputum and he was hearing himself wheeze. He complained of obstipation and mild solid dysphasia. My impressions were 1. Supraventricular tachycardia. Multifactorial including lung disease, coffee , theophylline, bronchodilators. 2. Obstipation present for about 3 months. 3. Possible early right lower lung and left lower lung pneumonia. 4. Acute exacerbation of COPD 5. Severe obstructive lung disease with an asthmatic component which is steroid -dependent 6. Moderate to severe emphysema with normal O2 sats 7. Chronic allergic sinusitis 8. Degenerative joint disease with mild arthritis in both knees. 9. Past history tobacco abuse. Stop smoking 2009 10. Past history of leukemoid reaction which resolved. Suspect there is a recurrence this admission. 11. History of lower extremity edema which appears to be secondary to dietary salt and sitting position. No obvious right heart failure. 08/02/2016. Patient's chest x-ray has improved today. He has faint increased markings in the medial basal segment of the right lower lung and in the lingula. These represent resolving bilateral pneumonia. I did an echocardiogram on him. He has an ejection fraction of 60%. Pulmonary artery pressures at 30. His hemoglobin A1c has been found to be above 9. I am starting the patient on metformin 500 before meals 3 times daily. I have consulted diabetic nurse and have consulted dietary. Theophylline level is 16.7. Patient had 3 bowel movements yesterday. All of this was discussed with the patient today. Labs been reviewed and medicines have been reviewed. 08/03/2016. Patient was seen along with his and along with Steven Reed nurse practitioner. He was instructed by diabetic nursing and dietary yesterday. His glucoses are better. Yesterday he was started on Glucophage 500 mg before meals 3 times daily and so far is been able to tolerate it well. Patient will need a little more treatment on his glucoses before he goes home. I have reduced his steroids and his severe lung disease is stable so far. He has had bilateral pneumonia which is almost resolved on his chest x-ray. Today he has developed posterior thoracic pain at the T6 through T10 area. This spread slightly to the right and is likely muscular as the pain is reproduced with pressure over this area. I am going to start the patient on Flector patch every 12 hours and I will give him 10 mg of Toradol IV push. Theophylline level was 15.7. This patient is making good progress from a pulmonary standpoint. Diabetes has been established as a new diagnosis and treatment has been initiated. I think there will need to be in the hospital for Saturday or Saturday if all goes well. I will be seeing him this weekend. 08/04/2016. Dr. Wade Bean has asked me to take this patient in transfer. I accept him in transfer. Patient seen along with his . He still having wheezing and trouble mobilizing sputum. His glucoses were down to 158 this morning. His theophylline level was 15.7. Patient still has some musculoskeletal back pain and I am going to repeat P Toradol 10 mg IV push now and then 12 hours later. He denies any GI symptoms. He says he had bowel movements yesterday and he feels like his obstipation is just about resolved. He has had no intolerance of his metformin thus far. He has a normal creatinine is 0.8. On 07/31/2016 sputum's grew a gram-negative roman. ID and sensitivities have yet to be reported. 08/05/2016. Patient's been able to move around in the room a little bit. His glucoses are coming under a little better control. He has new cultures from his sputum. I have stopped his cephapirin and I have begun Levaquin based on the LOU's. Patient remains in a regular sinus rhythm. His rate is much better controlled. Lymphatic continue his increase activity. He still has significant wheezing, shortness of breath and dyspnea on exertion. I have added glipizide 2.5 mg twice daily to the patient's diabetic regimen. I have explained to him that good control of glucose will help with decrease in the viscosity of his sputum. Bowel movements are better. 08/07/2016. Patient had pulmonary function test on 08/06/2016. He showed a marked bronchodilator effect. I have discussed this with the patient and his and I have added albuterol 1 mg p.o. 3 times daily. I have checked his theophylline level and this is therapeutic. Patient developed bilateral lower extremity edema he has had this before but this responded to diuretics the edema is spongy in character and fairly extensive. Will check Doppler venograms of the lower extremities and start patient on hydrochlorothiazide 25 mg p.o. twice a day. Will follow up with Rosita BARRIENTOS in the morning. He may need potassium supplementation. Glucoses are not yet under good control and I have increased glipizide to 7.5 mg p.o. twice daily. Patient's also on Glucophage 500 before meals 3 times daily. His creatinine is 0.7 with a BUN of 11. We have a little room that we could increase this dose if needed. He is on Solu- Medrol 20 mg IV push twice a day and this is equivalent to the dose will be taken when he goes home. All of this was discussed with the patient and his . Steven Reed nurse practitioner was present. Patient tends to become easily angry. Yesterday I spent 10 or more minutes explaining to them why we were than I do pulmonary function test and when he had the test done he complained nobody had told him about it and he had a few other complaints related to this. We will repeat lab and chest x-rays in the morning Physical exam. Vital signs see below Psychiatric. Oriented 3. Neurologic. Cranial nerves are intact. Long track motor functions intact. Gait is normal but is limited by severe dyspnea on exertion. Face. Symmetrical. Lips and tongue are normal. Neck. Symmetrical. No mass. No meningismus. Lymphatics. No submandibular cervical supraclavicular or epitrochlear adenopathy Chest. Marked hyperinflation with prolonged incomplete expiration patient has a laryngeal tracheal and large airway wheeze which has improved.. I did not hear any high-pitched peripheral wheezes but I do not think he is moving enough air to produce this. Has developed right posterior chest tenderness in the area of T6 through T10. Heart. Regular at 1 10/min. No gallop. Abdomen. Nontender. Positive bowel sounds. No distention. Extremities. No evidence of deep venous thrombophlebitis. The remainder the exam is noncontributory Plan. 08/01/2016. 1. I agree with choice of antibiotics and steroid dose. 2. Cardiac monitoring 3. Echocardiogram. She has severe dyspnea on exertion as look for pulmonary hypertension. Also need to check cardiac output 4. Sputum for Gram stain culture and sensitivity. No positive cultures. 2016. Gram-positive cocci, gram-negative rods and gram-positive rods. Few fungal elements. Greater than 25 white blood cells per high-power field 5. Cold agglutinins. 08/02/2016, negative 6. Legionella titer. 7. Follow-up chest x-ray 8. Agree with ventilation therapy 9. Have added Cytotec 200 mcg by mouth daily to help with constipation. Lactulose and prune juice worked well this morning. 08/02/2016 1. Start metformin 500 before meals 3 times daily. Diabetes mellitus. New diagnosis 2. Dietary consult 3. Diabetic nurse consult. 4. Decrease Solu-Medrol slightly. 08/03/2016. 1. See today's note above. 2. Flector patch 3. Toradol 08/04/2016. 1. Accept the patient in transfer from Dr. Wade Bean 2. See my note 08/04/2016. Above. 08/05/2016. 1. See today's note above. 2. Start glipizide 3. Change antibiotic to Levaquin based on cultures and sensitivities and LOU 08/07/2016. 1. See today's note above. 2. Doppler venograms lower extremity 3. Glipizide 7-1/2 twice daily. 4. Albuterol 1 mg every 8 hours. 5. Hydrochlorothiazide 25 twice daily 6. Chest x-ray and lab in a.m. Exam (Progress Note) - Constitutional Vitals: Period Temp Pulse Resp BP Sys/Osman Pulse Ox Last 24 Hr 97.1 F-99.0 F 84-105 17-20 128-160/67-92 96-100 Results - Labs CBC & BMP: 08/06/16 10:52 08/06/16 10:52
[2016-08-07] MEDS: hydroCHLOROthiazide 25 MG TABLET PO SCH ×2 (11:44→16:25)
[2016-08-07] MEDS: LEVOFLOXACIN INJ 500 MG in PREMIX 1 EACH IV SCH (11:45)
--- NOTE | 2016-08-07 13:09 | Ultrasound Report ---
US venous doppler LE BI Indication: Bilateral lower extremity edema. Comparison: None. Technique: Grayscale, spectral, and color Doppler interrogation of the bilateral lower extremity veins was performed. Augmentation and compression was performed. Findings: Grayscale, color Doppler, and pulsed Doppler evaluation of the veins of the bilateral lower extremity demonstrates no evidence of deep venous thrombosis. IMPRESSION: No evidence of deep venous thrombosis in either lower extremity. PROCEDURE INTERPRETED AT [facility] DEPARTMENT OF RADIOLOGY Final Report Signed by: Dr All John
[2016-08-07] MEDS: ALBUTEROL 0.4 MG/ML 30 ML/BOTTLE PO SCH (14:03)
[2016-08-08] MEDS: ALBUTEROL 2.5 MG/3 ML NEB RESP TX SCH ×4 (00:53→20:15)
[2016-08-08 05:57] LABS: Calcium 8.8 MG/DL (8.5-10.1); Magnesium 1.8 MG/DL (1.8-2.4); Osmolality,Calculated 284.8 MOS/KG (273-304)
[2016-08-08] MEDS: methylPREDNISolone SOD SUC 40 MG/1 ML VIAL IV SCH (07:04)
[2016-08-08] MEDS: ALBUTEROL 0.4 MG/ML 30 ML/BOTTLE PO SCH ×5 (07:09→23:52)
--- NOTE | 2016-08-08 07:54 | XRay Report ---
XR chest 2V Indication: Pneumonia, COPD, emphysema Comparison: Chest x-ray dated August 06, 2016 Technique: Frontal and lateral views of the chest. Findings: The cardiomediastinal silhouette is stable in configuration. Chronic change of the lungs without focal consolidation, pleural effusion, or pneumothorax. Hyperinflation of the lungs consistent with emphysema. Visualized osseous and surrounding soft tissue structures appear grossly unchanged. Diffuse osteopenia and mild dextroconvex curvature of the spine. IMPRESSION: Emphysematous change of the lungs without gross evidence of pneumonia. PROCEDURE INTERPRETED AT [facility] DEPARTMENT OF RADIOLOGY Final Report Signed by: Dr All John
[2016-08-08] MEDS: PANTOPRAZOLE 40 MG TABLET PO SCH (09:40)
[2016-08-08] MEDS: THEOPHYLLINE ER (24 HR) 400 MG CAPSULE PO SCH ×2 (09:40→20:45)
[2016-08-08] MEDS: miSOPROStol 200 MCG TABLET PO SCH (09:40)
[2016-08-08] MEDS: glipiZIDE 5 MG TABLET PO SCH ×2 (09:40→16:54)
[2016-08-08] MEDS: CLORAZEPATE 7.5 MG TABLET PO SCH ×2 (09:40→20:45)
[2016-08-08] MEDS: MONTELUKAST 10 MG TABLET PO SCH ×2 (09:40→20:44)
[2016-08-08] MEDS: METOPROLOL TARTRATE 25 MG TABLET PO SCH ×2 (09:41→20:45)
[2016-08-08] MEDS: ASPIRIN EC 81 MG TABLET PO SCH (09:41)
[2016-08-08] MEDS: INSULIN REGULAR 100 UNIT/ML SUBCUT SCH ×4 (09:42→20:45)
[2016-08-08] MEDS: FLUTICASONE/SALMETEROL 500-50 DISKUS 14 DOSE INH SCH ×2 (09:42→20:43)
[2016-08-08] MEDS: hydroCHLOROthiazide 25 MG TABLET PO SCH ×2 (09:45→16:55)
[2016-08-08] MEDS: metFORMIN 500 MG TABLET PO SCH ×3 (09:45→16:54)
[2016-08-08] MEDS ORDERED: predniSONE 10 MG TABLET PO ONE (10:30)
--- NOTE | 2016-08-08 10:57 | Pulmonology Progress Note ---
Pulmonary - PN: Subj Interval history: This is a 61-year-old white male whom I saw in pulmonary consultation for evaluation and treatment on 08/01/2016. He is a longtime patient of mine. He was admitted with progressive shortness of breath dyspnea on exertion and a cough productive of yellow-green sputum and he was hearing himself wheeze. He complained of obstipation and mild solid dysphasia. My impressions were 1. Supraventricular tachycardia. Multifactorial including lung disease, coffee , theophylline, bronchodilators. 2. Obstipation present for about 3 months. 3. Possible early right lower lung and left lower lung pneumonia. 4. Acute exacerbation of COPD 5. Severe obstructive lung disease with an asthmatic component which is steroid -dependent 6. Moderate to severe emphysema with normal O2 sats 7. Chronic allergic sinusitis 8. Degenerative joint disease with mild arthritis in both knees. 9. Past history tobacco abuse. Stop smoking 2009 10. Past history of leukemoid reaction which resolved. Suspect there is a recurrence this admission. 11. History of lower extremity edema which appears to be secondary to dietary salt and sitting position. No obvious right heart failure. 08/02/2016. Patient's chest x-ray has improved today. He has faint increased markings in the medial basal segment of the right lower lung and in the lingula. These represent resolving bilateral pneumonia. I did an echocardiogram on him. He has an ejection fraction of 60%. Pulmonary artery pressures at 30. His hemoglobin A1c has been found to be above 9. I am starting the patient on metformin 500 before meals 3 times daily. I have consulted diabetic nurse and have consulted dietary. Theophylline level is 16.7. Patient had 3 bowel movements yesterday. All of this was discussed with the patient today. Labs been reviewed and medicines have been reviewed. 08/03/2016. Patient was seen along with his and along with Steven Reed nurse practitioner. He was instructed by diabetic nursing and dietary yesterday. His glucoses are better. Yesterday he was started on Glucophage 500 mg before meals 3 times daily and so far is been able to tolerate it well. Patient will need a little more treatment on his glucoses before he goes home. I have reduced his steroids and his severe lung disease is stable so far. He has had bilateral pneumonia which is almost resolved on his chest x-ray. Today he has developed posterior thoracic pain at the T6 through T10 area. This spread slightly to the right and is likely muscular as the pain is reproduced with pressure over this area. I am going to start the patient on Flector patch every 12 hours and I will give him 10 mg of Toradol IV push. Theophylline level was 15.7. This patient is making good progress from a pulmonary standpoint. Diabetes has been established as a new diagnosis and treatment has been initiated. I think there will need to be in the hospital for Saturday or Saturday if all goes well. I will be seeing him this weekend. 08/04/2016. Dr. Wade Bean has asked me to take this patient in transfer. I accept him in transfer. Patient seen along with his . He still having wheezing and trouble mobilizing sputum. His glucoses were down to 158 this morning. His theophylline level was 15.7. Patient still has some musculoskeletal back pain and I am going to repeat P Toradol 10 mg IV push now and then 12 hours later. He denies any GI symptoms. He says he had bowel movements yesterday and he feels like his obstipation is just about resolved. He has had no intolerance of his metformin thus far. He has a normal creatinine is 0.8. On 07/31/2016 sputum's grew a gram-negative roman. ID and sensitivities have yet to be reported. 08/05/2016. Patient's been able to move around in the room a little bit. His glucoses are coming under a little better control. He has new cultures from his sputum. I have stopped his cephapirin and I have begun Levaquin based on the LOU's. Patient remains in a regular sinus rhythm. His rate is much better controlled. Lymphatic continue his increase activity. He still has significant wheezing, shortness of breath and dyspnea on exertion. I have added glipizide 2.5 mg twice daily to the patient's diabetic regimen. I have explained to him that good control of glucose will help with decrease in the viscosity of his sputum. Bowel movements are better. 08/07/2016. Patient had pulmonary function test on 08/06/2016. He showed a marked bronchodilator effect. I have discussed this with the patient and his and I have added albuterol 1 mg p.o. 3 times daily. I have checked his theophylline level and this is therapeutic. Patient developed bilateral lower extremity edema he has had this before but this responded to diuretics the edema is spongy in character and fairly extensive. Will check Doppler venograms of the lower extremities and start patient on hydrochlorothiazide 25 mg p.o. twice a day. Will follow up with Rosita BARRIENTOS in the morning. He may need potassium supplementation. Glucoses are not yet under good control and I have increased glipizide to 7.5 mg p.o. twice daily. Patient's also on Glucophage 500 before meals 3 times daily. His creatinine is 0.7 with a BUN of 11. We have a little room that we could increase this dose if needed. He is on Solu- Medrol 20 mg IV push twice a day and this is equivalent to the dose will be taken when he goes home. All of this was discussed with the patient and his . Steven Reed nurse practitioner was present. Patient tends to become easily angry. Yesterday I spent 10 or more minutes explaining to them why we were than I do pulmonary function test and when he had the test done he complained nobody had told him about it and he had a few other complaints related to this. We will repeat lab and chest x-rays in the morning 08/08/2016. Patient's glucoses are under little better control. Creatinine is stable at 0.70. BUN is 16. Electrolytes normal. With the addition of p.o. albuterol I think his lungs are clear and I think he is moving air better. When asked patient continued to get up and move around. I will switch his Solu- Medrol to prednisone 10 p.o. twice daily. first dose will be given in the morning second dose will be given around noon time. This patient should be ready for discharge by Saturday. All of these factors were discussed with the patient and his . Steven Reed nurse practitioner was present. Note that the patient's BNP is 22. Magnesium is normal. Heart rhythm is stable. He denies any cardiac angina. Physical exam. Vital signs see below Psychiatric. Oriented 3. Neurologic. Cranial nerves are intact. Long track motor functions intact. Gait is normal but is limited by severe dyspnea on exertion. Face. Symmetrical. Lips and tongue are normal. Neck. Symmetrical. No mass. No meningismus. Lymphatics. No submandibular cervical supraclavicular or epitrochlear adenopathy Chest. Marked hyperinflation with prolonged incomplete expiration patient has a laryngeal tracheal and large airway wheeze which has improved.. I did not hear any high-pitched peripheral wheezes but I do not think he is moving enough air to produce this. Has developed right posterior chest tenderness in the area of T6 through T10. Heart. Regular at 1 10/min. No gallop. Abdomen. Nontender. Positive bowel sounds. No distention. Extremities. No evidence of deep venous thrombophlebitis. The remainder the exam is noncontributory Plan. 08/01/2016. 1. I agree with choice of antibiotics and steroid dose. 2. Cardiac monitoring 3. Echocardiogram. She has severe dyspnea on exertion as look for pulmonary hypertension. Also need to check cardiac output 4. Sputum for Gram stain culture and sensitivity. No positive cultures. 2016. Gram-positive cocci, gram-negative rods and gram-positive rods. Few fungal elements. Greater than 25 white blood cells per high-power field 5. Cold agglutinins. 08/02/2016, negative 6. Legionella titer. 7. Follow-up chest x-ray 8. Agree with ventilation therapy 9. Have added Cytotec 200 mcg by mouth daily to help with constipation. Lactulose and prune juice worked well this morning. 08/02/2016 1. Start metformin 500 before meals 3 times daily. Diabetes mellitus. New diagnosis 2. Dietary consult 3. Diabetic nurse consult. 4. Decrease Solu-Medrol slightly. 08/03/2016. 1. See today's note above. 2. Flector patch 3. Toradol 08/04/2016. 1. Accept the patient in transfer from Dr. Wade Bean 2. See my note 08/04/2016. Above. 08/05/2016. 1. See today's note above. 2. Start glipizide 3. Change antibiotic to Levaquin based on cultures and sensitivities and LOU 08/07/2016. 1. See today's note above. 2. Doppler venograms lower extremity 3. Glipizide 7-1/2 twice daily. 4. Albuterol 1 mg every 8 hours. 5. Hydrochlorothiazide 25 twice daily 6. Chest x-ray and lab in a.m. 08/08/2016. 1. See today's note above. 2. Probable Saturday disc Exam (Progress Note) - Constitutional Vitals: Period Temp Pulse Resp BP Sys/Osman Pulse Ox Last 24 Hr 98.2 F-98.8 F 67-105 18-20 124-149/77-91 94-99 Results - Labs CBC & BMP: 08/06/16 10:52 08/08/16 04:13
[2016-08-08] MEDS: DICLOFENAC 1.3% PATCH 5/PACK TRANSDERM SCH ×2 (12:29→20:45)
[2016-08-08] MEDS: FLUCONAZOLE INJ 200 MG in PREMIX 1 EACH IV SCH (12:30)
[2016-08-08] MEDS: LEVOFLOXACIN INJ 500 MG in PREMIX 1 EACH IV SCH (13:30)
[2016-08-09] MEDS: ALBUTEROL 2.5 MG/3 ML NEB RESP TX SCH ×4 (04:42→20:04)
[2016-08-09] MEDS: predniSONE 10 MG TABLET PO SCH ×2 (06:05→12:20)
[2016-08-09] MEDS: ALBUTEROL 0.4 MG/ML 30 ML/BOTTLE PO SCH ×3 (06:05→21:41)
[2016-08-09] MEDS: glipiZIDE 5 MG TABLET PO SCH ×2 (09:35→16:52)
[2016-08-09] MEDS: miSOPROStol 200 MCG TABLET PO SCH (09:35)
[2016-08-09] MEDS: PANTOPRAZOLE 40 MG TABLET PO SCH (09:36)
[2016-08-09] MEDS: ASPIRIN EC 81 MG TABLET PO SCH (09:36)
[2016-08-09] MEDS: hydroCHLOROthiazide 25 MG TABLET PO SCH ×2 (09:36→16:52)
[2016-08-09] MEDS: METOPROLOL TARTRATE 25 MG TABLET PO SCH ×2 (09:36→21:41)
[2016-08-09] MEDS: THEOPHYLLINE ER (24 HR) 400 MG CAPSULE PO SCH ×2 (09:36→21:41)
[2016-08-09] MEDS: metFORMIN 500 MG TABLET PO SCH ×3 (09:36→16:53)
[2016-08-09] MEDS: MONTELUKAST 10 MG TABLET PO SCH ×2 (09:37→21:41)
[2016-08-09] MEDS: FLUCONAZOLE INJ 200 MG in PREMIX 1 EACH IV SCH (09:37)
[2016-08-09] MEDS: DICLOFENAC 1.3% PATCH 5/PACK TRANSDERM SCH ×2 (09:37→21:41)
[2016-08-09] MEDS: FLUTICASONE/SALMETEROL 500-50 DISKUS 14 DOSE INH SCH ×2 (09:37→21:41)
[2016-08-09] MEDS: INSULIN REGULAR 100 UNIT/ML SUBCUT SCH ×4 (09:38→21:47)
--- NOTE | 2016-08-09 10:08 | Pulmonology Progress Note ---
Pulmonary - PN: Subj Interval history: This is a 61-year-old white male whom I saw in pulmonary consultation for evaluation and treatment on 08/01/2016. He is a longtime patient of mine. He was admitted with progressive shortness of breath dyspnea on exertion and a cough productive of yellow-green sputum and he was hearing himself wheeze. He complained of obstipation and mild solid dysphasia. My impressions were 1. Supraventricular tachycardia. Multifactorial including lung disease, coffee , theophylline, bronchodilators. 2. Obstipation present for about 3 months. 3. Possible early right lower lung and left lower lung pneumonia. 4. Acute exacerbation of COPD 5. Severe obstructive lung disease with an asthmatic component which is steroid -dependent 6. Moderate to severe emphysema with normal O2 sats 7. Chronic allergic sinusitis 8. Degenerative joint disease with mild arthritis in both knees. 9. Past history tobacco abuse. Stop smoking 2009 10. Past history of leukemoid reaction which resolved. Suspect there is a recurrence this admission. 11. History of lower extremity edema which appears to be secondary to dietary salt and sitting position. No obvious right heart failure. 08/02/2016. Patient's chest x-ray has improved today. He has faint increased markings in the medial basal segment of the right lower lung and in the lingula. These represent resolving bilateral pneumonia. I did an echocardiogram on him. He has an ejection fraction of 60%. Pulmonary artery pressures at 30. His hemoglobin A1c has been found to be above 9. I am starting the patient on metformin 500 before meals 3 times daily. I have consulted diabetic nurse and have consulted dietary. Theophylline level is 16.7. Patient had 3 bowel movements yesterday. All of this was discussed with the patient today. Labs been reviewed and medicines have been reviewed. 08/03/2016. Patient was seen along with his and along with Steven Reed nurse practitioner. He was instructed by diabetic nursing and dietary yesterday. His glucoses are better. Yesterday he was started on Glucophage 500 mg before meals 3 times daily and so far is been able to tolerate it well. Patient will need a little more treatment on his glucoses before he goes home. I have reduced his steroids and his severe lung disease is stable so far. He has had bilateral pneumonia which is almost resolved on his chest x-ray. Today he has developed posterior thoracic pain at the T6 through T10 area. This spread slightly to the right and is likely muscular as the pain is reproduced with pressure over this area. I am going to start the patient on Flector patch every 12 hours and I will give him 10 mg of Toradol IV push. Theophylline level was 15.7. This patient is making good progress from a pulmonary standpoint. Diabetes has been established as a new diagnosis and treatment has been initiated. I think there will need to be in the hospital for Saturday or Saturday if all goes well. I will be seeing him this weekend. 08/04/2016. Dr. Wade Bean has asked me to take this patient in transfer. I accept him in transfer. Patient seen along with his . He still having wheezing and trouble mobilizing sputum. His glucoses were down to 158 this morning. His theophylline level was 15.7. Patient still has some musculoskeletal back pain and I am going to repeat P Toradol 10 mg IV push now and then 12 hours later. He denies any GI symptoms. He says he had bowel movements yesterday and he feels like his obstipation is just about resolved. He has had no intolerance of his metformin thus far. He has a normal creatinine is 0.8. On 07/31/2016 sputum's grew a gram-negative roman. ID and sensitivities have yet to be reported. 08/05/2016. Patient's been able to move around in the room a little bit. His glucoses are coming under a little better control. He has new cultures from his sputum. I have stopped his cephapirin and I have begun Levaquin based on the LOU's. Patient remains in a regular sinus rhythm. His rate is much better controlled. Lymphatic continue his increase activity. He still has significant wheezing, shortness of breath and dyspnea on exertion. I have added glipizide 2.5 mg twice daily to the patient's diabetic regimen. I have explained to him that good control of glucose will help with decrease in the viscosity of his sputum. Bowel movements are better. 08/07/2016. Patient had pulmonary function test on 08/06/2016. He showed a marked bronchodilator effect. I have discussed this with the patient and his and I have added albuterol 1 mg p.o. 3 times daily. I have checked his theophylline level and this is therapeutic. Patient developed bilateral lower extremity edema he has had this before but this responded to diuretics the edema is spongy in character and fairly extensive. Will check Doppler venograms of the lower extremities and start patient on hydrochlorothiazide 25 mg p.o. twice a day. Will follow up with Rosita BARRIENTOS in the morning. He may need potassium supplementation. Glucoses are not yet under good control and I have increased glipizide to 7.5 mg p.o. twice daily. Patient's also on Glucophage 500 before meals 3 times daily. His creatinine is 0.7 with a BUN of 11. We have a little room that we could increase this dose if needed. He is on Solu- Medrol 20 mg IV push twice a day and this is equivalent to the dose will be taken when he goes home. All of this was discussed with the patient and his . Steven Reed nurse practitioner was present. Patient tends to become easily angry. Yesterday I spent 10 or more minutes explaining to them why we were than I do pulmonary function test and when he had the test done he complained nobody had told him about it and he had a few other complaints related to this. We will repeat lab and chest x-rays in the morning 08/08/2016. Patient's glucoses are under little better control. Creatinine is stable at 0.70. BUN is 16. Electrolytes normal. With the addition of p.o. albuterol I think his lungs are clear and I think he is moving air better. When asked patient continued to get up and move around. I will switch his Solu- Medrol to prednisone 10 p.o. twice daily. first dose will be given in the morning second dose will be given around noon time. This patient should be ready for discharge by Saturday. All of these factors were discussed with the patient and his . Steven Reed nurse practitioner was present. Note that the patient's BNP is 22. Magnesium is normal. Heart rhythm is stable. He denies any cardiac angina. 08/09/2016. Bilateral infiltrates seen on chest x-ray have resolved. With the addition of oral albuterol recently patient's wheezes are much better he was active actually take take a short walk in the [place] with help yesterday. He has some brownish discolored sputum is clearing. In the meantime his glucoses are beginning to come under good control. Both the patient and his stated he did not need any more instruction from a diabetic nurse or from dietary. His heart rate is stable originally was a problem with tachycardia. I have asked the patient to increase his activity as much as possible today and if he continues to improve from a pulmonary standpoint and from an endocrine standpoint he will be discharged tomorrow. Physical exam. Vital signs see below Psychiatric. Oriented 3. Neurologic. Cranial nerves are intact. Long track motor functions intact. Gait is normal but is limited by severe dyspnea on exertion. Face. Symmetrical. Lips and tongue are normal. Neck. Symmetrical. No mass. No meningismus. Lymphatics. No submandibular cervical supraclavicular or epitrochlear adenopathy Chest. Marked hyperinflation with prolonged incomplete expiration patient has a laryngeal tracheal and large airway wheeze which has improved.. I did not hear any high-pitched peripheral wheezes but I do not think he is moving enough air to produce this. Has developed right posterior chest tenderness in the area of T6 through T10. Heart. Regular at 1 10/min. No gallop. Abdomen. Nontender. Positive bowel sounds. No distention. Extremities. No evidence of deep venous thrombophlebitis. The remainder the exam is noncontributory Plan. 08/01/2016. 1. I agree with choice of antibiotics and steroid dose. 2. Cardiac monitoring 3. Echocardiogram. She has severe dyspnea on exertion as look for pulmonary hypertension. Also need to check cardiac output 4. Sputum for Gram stain culture and sensitivity. No positive cultures. 2016. Gram-positive cocci, gram-negative rods and gram-positive rods. Few fungal elements. Greater than 25 white blood cells per high-power field 5. Cold agglutinins. 08/02/2016, negative 6. Legionella titer. 7. Follow-up chest x-ray 8. Agree with ventilation therapy 9. Have added Cytotec 200 mcg by mouth daily to help with constipation. Lactulose and prune juice worked well this morning. 08/02/2016 1. Start metformin 500 before meals 3 times daily. Diabetes mellitus. New diagnosis 2. Dietary consult 3. Diabetic nurse consult. 4. Decrease Solu-Medrol slightly. 08/03/2016. 1. See today's note above. 2. Flector patch 3. Toradol 08/04/2016. 1. Accept the patient in transfer from Dr. Wade Bean 2. See my note 08/04/2016. Above. 08/05/2016. 1. See today's note above. 2. Start glipizide 3. Change antibiotic to Levaquin based on cultures and sensitivities and LOU 08/07/2016. 1. See today's note above. 2. Doppler venograms lower extremity 3. Glipizide 7-1/2 twice daily. 4. Albuterol 1 mg every 8 hours. 5. Hydrochlorothiazide 25 twice daily 6. Chest x-ray and lab in a.m. 08/08/2016. 1. See today's note above. 2. Probable Saturday disc 08/09/2016. 1. See today's note above 2. Probable Saturday discharge Exam (Progress Note) - Constitutional Vitals: Period Temp Pulse Resp BP Sys/Osman Pulse Ox Last 24 Hr 97.2 F-98.9 F 81-111 18-20 139-148/71-96 92-100 Results - Labs CBC & BMP: 08/06/16 10:52 08/08/16 04:13
[2016-08-09] MEDS: LEVOFLOXACIN INJ 500 MG in PREMIX 1 EACH IV SCH (12:20)
[2016-08-09] MEDS: LACTULOSE 20 GM/30 ML UDCUP PO PRN (19:00)
[2016-08-10] MEDS: ALBUTEROL 2.5 MG/3 ML NEB RESP TX SCH ×2 (00:07→07:30)
[2016-08-10] MEDS: ALBUTEROL 0.4 MG/ML 30 ML/BOTTLE PO SCH (05:58)
[2016-08-10] MEDS: predniSONE 10 MG TABLET PO SCH (05:58)
[2016-08-10 07:27] VITALS: BP 115/67
[2016-08-10] MEDS: hydroCHLOROthiazide 25 MG TABLET PO SCH (08:20)
[2016-08-10] MEDS: miSOPROStol 200 MCG TABLET PO SCH (08:20)
[2016-08-10] MEDS: METOPROLOL TARTRATE 25 MG TABLET PO SCH (08:21)
[2016-08-10] MEDS: glipiZIDE 5 MG TABLET PO SCH (08:21)
[2016-08-10] MEDS: MONTELUKAST 10 MG TABLET PO SCH (08:21)
[2016-08-10] MEDS: ASPIRIN EC 81 MG TABLET PO SCH (08:21)
[2016-08-10] MEDS: metFORMIN 500 MG TABLET PO SCH (08:21)
[2016-08-10] MEDS: PANTOPRAZOLE 40 MG TABLET PO SCH (08:21)
[2016-08-10] MEDS: DICLOFENAC 1.3% PATCH 5/PACK TRANSDERM SCH (08:22)
[2016-08-10] MEDS: FLUTICASONE/SALMETEROL 500-50 DISKUS 14 DOSE INH SCH (08:22)
[2016-08-10] MEDS: THEOPHYLLINE ER (24 HR) 400 MG CAPSULE PO SCH (08:22)
[2016-08-10] MEDS: INSULIN REGULAR 100 UNIT/ML SUBCUT SCH (08:24)
--- NOTE | 2016-08-10 10:23 | Pulmonology Progress Note ---
Pulmonary - PN: Subj Interval history: Steven Reed, ANP-BC, GNP-BC, acting as scribe for Dr. Ayden Schneider This is a 61-year-old white male who we saw in pulmonary consultation for evaluation and treatment on 08/01/2016. He is a longtime patient of Dr. Schneider. He was admitted with progressive shortness of breath dyspnea on exertion and a cough productive of yellow-green sputum and he was hearing himself wheeze. He complained of obstipation and mild solid dysphasia. At the time of our initial consultation, our impressions were: 1. Supraventricular tachycardia. Multifactorial including lung disease, coffee , theophylline, bronchodilators. 2. Obstipation present for about 3 months. 3. Possible early right lower lung and left lower lung pneumonia. 4. Acute exacerbation of COPD 5. Severe obstructive lung disease with an asthmatic component which is steroid -dependent 6. Moderate to severe emphysema with normal O2 sats 7. Chronic allergic sinusitis 8. Degenerative joint disease with mild arthritis in both knees. 9. Past history tobacco abuse. Stop smoking 2009 10. Past history of leukemoid reaction which resolved. Suspect there is a recurrence this admission. 11. History of lower extremity edema which appears to be secondary to dietary salt and sitting position. No obvious right heart failure. 08/02/2016. Patient's chest x-ray has improved today. He has faint increased markings in the medial basal segment of the right lower lung and in the lingula. These represent resolving bilateral pneumonia. I did an echocardiogram on him. He has an ejection fraction of 60%. Pulmonary artery pressures at 30. His hemoglobin A1c has been found to be above 9. I am starting the patient on metformin 500 before meals 3 times daily. I have consulted diabetic nurse and have consulted dietary. Theophylline level is 16.7. Patient had 3 bowel movements yesterday. All of this was discussed with the patient today. Labs been reviewed and medicines have been reviewed. 08/03/2016. Patient was seen along with his and along with Steven Reed nurse practitioner. He was instructed by diabetic nursing and dietary yesterday. His glucoses are better. Yesterday he was started on Glucophage 500 mg before meals 3 times daily and so far is been able to tolerate it well. Patient will need a little more treatment on his glucoses before he goes home. I have reduced his steroids and his severe lung disease is stable so far. He has had bilateral pneumonia which is almost resolved on his chest x-ray. Today he has developed posterior thoracic pain at the T6 through T10 area. This spread slightly to the right and is likely muscular as the pain is reproduced with pressure over this area. I am going to start the patient on Flector patch every 12 hours and I will give him 10 mg of Toradol IV push. Theophylline level was 15.7. This patient is making good progress from a pulmonary standpoint. Diabetes has been established as a new diagnosis and treatment has been initiated. I think there will need to be in the hospital for Saturday or Saturday if all goes well. I will be seeing him this weekend. 08/04/2016. Dr. Wade Bean has asked me to take this patient in transfer. I accept him in transfer. Patient seen along with his . He still having wheezing and trouble mobilizing sputum. His glucoses were down to 158 this morning. His theophylline level was 15.7. Patient still has some musculoskeletal back pain and I am going to repeat P Toradol 10 mg IV push now and then 12 hours later. He denies any GI symptoms. He says he had bowel movements yesterday and he feels like his obstipation is just about resolved. He has had no intolerance of his metformin thus far. He has a normal creatinine is 0.8. On 07/31/2016 sputum's grew a gram-negative roman. ID and sensitivities have yet to be reported. 08/05/2016. Patient's been able to move around in the room a little bit. His glucoses are coming under a little better control. He has new cultures from his sputum. I have stopped his cephapirin and I have begun Levaquin based on the LOU's. Patient remains in a regular sinus rhythm. His rate is much better controlled. Lymphatic continue his increase activity. He still has significant wheezing, shortness of breath and dyspnea on exertion. I have added glipizide 2.5 mg twice daily to the patient's diabetic regimen. I have explained to him that good control of glucose will help with decrease in the viscosity of his sputum. Bowel movements are better. 08/06/2016. The patient was seen today along with his . The patient's breathing continues to improve, but he still has significant shortness of breath , dyspnea on exertion, and mild expiratory wheeze. However, given his improvement we will obtain complete pulmonary function test with pre-and postbronchodilator spirometry. Glipizide was added yesterday. On review glucoses, does not appear to this medication is taken effect yet. We will continue to monitor this. Sputum has grown Acinetobacter lwoffi and Maria G. He is being treated with fluconazole and Levaquin. 08/07/2016. Patient had pulmonary function test on 08/06/2016. He showed a marked bronchodilator effect. I have discussed this with the patient and his and I have added albuterol 1 mg p.o. 3 times daily. I have checked his theophylline level and this is therapeutic. Patient developed bilateral lower extremity edema he has had this before but this responded to diuretics the edema is spongy in character and fairly extensive. Will check Doppler venograms of the lower extremities and start patient on hydrochlorothiazide 25 mg p.o. twice a day. Will follow up with Rosita BARRIENTOS in the morning. He may need potassium supplementation. Glucoses are not yet under good control and I have increased glipizide to 7.5 mg p.o. twice daily. Patient's also on Glucophage 500 before meals 3 times daily. His creatinine is 0.7 with a BUN of 11. We have a little room that we could increase this dose if needed. He is on Solu- Medrol 20 mg IV push twice a day and this is equivalent to the dose will be taken when he goes home. All of this was discussed with the patient and his . Steven Reed nurse practitioner was present. Patient tends to become easily angry. Yesterday I spent 10 or more minutes explaining to them why we were than I do pulmonary function test and when he had the test done he complained nobody had told him about it and he had a few other complaints related to this. We will repeat lab and chest x-rays in the morning 08/08/2016. Patient's glucoses are under little better control. Creatinine is stable at 0.70. BUN is 16. Electrolytes normal. With the addition of p.o. albuterol I think his lungs are clear and I think he is moving air better. When asked patient continued to get up and move around. I will switch his Solu- Medrol to prednisone 10 p.o. twice daily. first dose will be given in the morning second dose will be given around noon time. This patient should be ready for discharge by Saturday. All of these factors were discussed with the patient and his . Steven Reed nurse practitioner was present. Note that the patient's BNP is 22. Magnesium is normal. Heart rhythm is stable. He denies any cardiac angina. 08/09/2016. Bilateral infiltrates seen on chest x-ray have resolved. With the addition of oral albuterol recently patient's wheezes are much better he was active actually take take a short walk in the [place] with help yesterday. He has some brownish discolored sputum is clearing. In the meantime his glucoses are beginning to come under good control. Both the patient and his stated he did not need any more instruction from a diabetic nurse or from dietary. His heart rate is stable originally was a problem with tachycardia. I have asked the patient to increase his activity as much as possible today and if he continues to improve from a pulmonary standpoint and from an endocrine standpoint he will be discharged tomorrow. 08/10/2016. Patient was seen today along with his . From a pulmonary standpoint the patient continues to improve daily. He is back to his baseline pulmonary-ac. His glucoses have come under much better control. Fasting glucose this morning was 124. Overall, the patient has improved to the point where he can now be safely managed at home. Medications have been reviewed. We made no changes today. Labs been reviewed. No new labs were drawn today. Exam (Progress Note) - Constitutional Vitals: Period Temp Pulse Resp BP Sys/Osman Pulse Ox Last 24 Hr 96.2 F-98.5 F 93-109 18-20 115-158/67-95 93-98 Exam: Chest is hyperinflated with prolonged incomplete expiration. No significant wheeze. Heart no gallop Abdomen is nontender and nondistended; bowel sounds are positive 4 Extremities with nothing to suggest acute deep venous thrombophlebitis Psychiatric oriented 3 Neurologic long-term motor function is intact Plan: The patient has now met maximal hospital benefit and will be discharged home. Please see my discharge summary dated 08/10/2016. Results - Labs CBC & BMP: 08/06/16 10:52 08/08/16 04:13
--- NOTE | 2016-08-10 10:32 | Discharge Summary ---
Hospital Course - Hospital Course Hospital Course: Steven Reed, ANP-BC, GNP-BC, acting as scribe for Dr. Ayden Caba Mr. Rosario is a 61-year-old white male has been a long-term patient of Dr. Caba. He presented to [facility] emergency room on 07/31/2016 with complaints of increased shortness of breath and constipation. He is found to be in an acute exacerbation of COPD with possible early right lower lung and left lower lung pneumonia. He was initially admitted to the hospitalist, he was seen in pulmonary consultation on 08/01/2016. On 08/04/2016 Dr. Caba assumed primary care for this hospitalization. The patient has been treated with initially Maxipime and azithromycin but more recently Levaquin this admission. Sputum Gram stain showed few gram-positive cocci, few fungal elements, few gram-negative rods, and rare gram-positive rods. Sputum culture grew Acinetobacter lwoffi and Maria G albicans. Note, this was not a Maria G pneumonia. He was treated according to the sensitivities provided and over time his chest x-ray has returned to baseline. His infiltrates have resolved. Due to his severe COPD and emphysema with wheezing, the patient has been treated with Solu-Medrol this admission. It was noted that his glucoses were markedly elevated. Hemoglobin A1c was obtained on 08/02/2016. This is elevated at 9.2% consistent with new onset diabetes mellitus. He was seen in diabetic nursing and dietary consultations. He has been instructed from both of these aspects. However time, the patient's wheezing subsided and we were able to change his Solu-Medrol to prednisone. He was started on metformin and glipizide and his glucoses have come under much better control. Fasting glucose the morning of discharge is 124. He will continue both of these medications at discharge and will follow this up as an outpatient. Patient and his have been instructed to start a glucose log and bring with them to their next appointment. Patient superventricular tachycardia admission. This was felt to be multifactorial including lung disease, coffee consumption, theophylline, bronchodilators, etc. Echocardiogram done 07/31/[address] Jackman showed a left ventricular ejection fraction estimated at 60%, the diastolic parameters were equivocal, mild tricuspid insufficiency with right ventricular systolic pressure estimated at 21 mmHg plus the right atrial pressure. It was noted that this was a limited study. He has had no further problems with supraventricular tachycardia since admission. At admission the patient complained of constipation/obstipation that have been a recurring problem for approximately 3 months. He was started on Cytotec 200 mcg daily and this has worked well. Pulmonary function test on 08/06/[address] Caba showed a marked bronchodilator effect. He was started on albuterol 1 mg p.o. 3 times daily. He is tolerated this well. This will be continued to discharge. Doppler venograms on 08/07/2016 showed no evidence of deep venous thrombophlebitis of either lower extremity. Blood cultures grew no organisms. Cold agglutinins were negative. Legionella was negative. At discharge, white count is 17,700 with 84.2% segs, 6.4% lymphs, and 0.8% monos ; H&H 13.0/37.8 with normal indices normal red blood cell distribution with; platelet count 283,000; creatinine 0.70, BUN 16, sodium 137, potassium 4.0, magnesium 1.8; BNP 22; theophylline level 10.8; INR 1.3; cardiac isoenzymes were negative; TSH was low at 0.103 but free T4 was normal at 1.05; liver function tests within normal limits. For more information regarding Mr. Rosario's past medical history, social history , surgical history, family history, admit labs, admit x-ray and admit exam, please see the admission note dated 07/31/2016 Dr. Caba's consultation note dated 08/01/2016. Impression: 1. Supraventricular tachycardia. Multifactorial including lung disease, coffee , theophylline, bronchodilators. Presently resolved. 2. Obstipation present for about 3 months. Improved with the addition of Cytotec. 3. Right lower lung and left lower lung pneumonia. Resolved. Secondary to Acinetobacter lwoffi. 4. Acute exacerbation of COPD. Resolved. 5. Severe obstructive lung disease with an asthmatic component which is steroid -dependent 6. Moderate to severe emphysema with normal O2 sats 7. Chronic allergic sinusitis 8. Degenerative joint disease with mild arthritis in both knees. 9. Past history tobacco abuse. Stop smoking 2009 10. Past history of leukemoid reaction which resolved. Suspect there was a recurrence this admission. 11. History of lower extremity edema which appears to be secondary to dietary salt and sitting position. No obvious right heart failure. Negative Doppler venograms. 12. Diabetes mellitus. Hemoglobin A1c 9.2%. You diagnosis this admission. 13. See past history Plan: Albuterol 1 mg every 8 hours, aspirin 81 mg daily, Advair 500/51 puff twice daily, glipizide 7.5 mg before meals twice daily, hydrochlorothiazide 25 mg twice daily, metformin 500 mg 3 times daily with meals, Lopressor 25 mg twice daily, Cytotec 200 mcg daily, Singulair 10 mg twice daily, Protonix 40 mg daily, prednisone 10 mg every morning and 10 mg daily at approximately noon, pro -air HFA 2 puffs every 4 hours as needed, Combivent Respimat 1 puff 4 times daily, Spiriva HandiHaler 1 inhalation daily, Levaquin 500 mg daily for 5 more days, and theophylline 400 mg twice daily. He will be scheduled to follow-up with Dr. Caba in approximately 1 month with a theophylline level and BMP. He can be seen sooner if needed. Specialty Discharge - Follow Up or Referrals Follow up with: Ayden Caba MD [Physician] - 1 Month (APPT WITH DR. CABA (Not Steven or Adriana) with Theophylline level and BMP.) Discharge Plan - Discharge Data Disposition: Disch To Home/Self Care Condition at Discharge: Stable Discharge Diet: diabetic diet Activity: resume usual activities as tolerated - Discharge Medications New Albuterol Liquid [Proventil Liquid] 1 mg PO Q8HR #225 mls Metoprolol Tartrate Tab [Lopressor Tab] 25 mg PO BID #60 tablet glipiZIDE [Glucotrol] 7.5 mg PO BIDAC #60 tablet metFORMIN [Glucophage] 500 mg PO TID W/MEALS #90 tablet miSOPROStol [Cytotec] 200 mcg PO DAILY #30 tablet hydroCHLOROthiazide [Hydrochlorothiazide] 25 mg PO BID DIURETIC #60 tablet predniSONE TAB [PredniSONE] 10 mg PO 0600,1300 #60 tablet Continue Ipratropium/Albuterol Inhaler [Combivent Respimat Inhaler] 1 puff INH QID Pantoprazole Tab [Protonix Tab] 40 mg PO DAILY #60 tablet Levofloxacin Tab [Levaquin Tab] 500 mg PO DAILY #5 tablet Tiotropium Inhalation [Spiriva Handihaler] 18 mcg INH DAILY Albuterol Sulfate [Proair HFA] 2 puff INH Q4H PRN PRN Reason: Shortness Of Breath/Wheezing Theophylline ER Cap (24 Hr) [Clint-24] 400 mg PO BID Aspirin [Ecotrin] 81 mg PO DAILY Montelukast Tab [Singulair Tab] 10 mg PO BID #60 tablet Fluticasone/Salmeterol 500-50 [Advair 500-50] 1 puff INH BID Clorazepate [Tranxene] 7.5 mg PO BID Discontinued predniSONE TAB [PredniSONE] 20 mg PO BID #60 - Follow Up or Referral - Forms/Instructions Exam - Constitutional Vitals: Period Temp Pulse Resp BP Sys/Osman Pulse Ox Last 24 Hr 96.2 F-98.5 F 93-109 18-20 115-158/67-95 93-98 Discharge Results Labs on day of discharge: Labs from last 24 hours 08/10/16 08/09/16 08/09/16 06:57 21:30 16:16 POC Glucose 124 H 125 H 84 08/09/16 11:33 POC Glucose 225 H DS: Provider Date of admission: 07/31/16 23:38 Primary care physician: Trae Adair MD Attending physician on admission: Miles Briceño MD Consults: 07/31/16 23:12 Consult to Physician [CONS] Routine Comment: Dr. Caba Consulting Provider: Ayden Caba Consult to Specialist Group: Pulmonology When should Consulting Provider be notified: In am Consult Notification Comment: LEFT MESSAGE WITH OFFICE AT 0815 08/02/16 09:58 Consult to [facility], Educator [CONS] Routine Reason for Professor Of Early Childhood Education: Diabetes Education Evaluate and Recommend Diet Consult Comment: newly diagnosed DM; A1C 9.2% Consult to Dietitian [CONS] Routine Reason for Dietitian: Diet Instruction Diet Recommendations Dietary Consult Consult Comment: newly diagnosed diabetes; A1C 9.2% 08/03/16 09:36 Consult to Case Mgmt/Social Srvs [CONS] Routine Reason for Case Mgmt/Social Srvs: Other Consult Comment: Check with insurance to see which diabetic medications are covered 08/05/16 16:50 Consult to Case Mgmt/Social Srvs [CONS] Routine Reason for Case Mgmt/Social Srvs: Other Consult Comment: NEEDS HOME O2 Discharging clinician: MEHRDAD Mares
[2016-08-10] MEDS: FLUCONAZOLE INJ 200 MG in PREMIX 1 EACH IV SCH (11:09)
== END 2016-08-10 11:17 | disposition home or self-care (01) | DRG 190 ==
LOC: EDUNIT# → EDBD → N.ED 21:15 → SUATTDRO 23:38 → N.EDINP 23:38 → N.TELES 08-01 00:08
PROVIDERS: ADMIT Internal Medicine Infectious Disease; ATTEND Internal Medicine Pulmonary Disease

== ENCOUNTER 2017-04-06 05:28 | Inpatient (IN) ==
[2017-04-06 05:59] LABS: Basophils # 0.1 10*3/uL (0.0-0.2); Basophils % 0.4 % (0.0-0.8); Eosinophils # 0.3 10*3/uL (0.0-0.87); Eosinophils % 1.6 % (0.00-10.9); Hematocrit 45.8 VOL% (42.0-52.0); Hemoglobin 15.3 GM/DL (14.0-18.0); Immature Granulocytes % 2.2 %; Immature Granulocytes Absolute 0.39 #; Lymphocytes # 2.6 10*3/uL (1.4-4.0); Lymphocytes % 14.1 % (21.2-54.2); Mean Corpuscular HGB Conc 33.4 GM/DL (32-36); Mean Corpuscular Hemoglobin 32 PG (27-34); Mean Corpuscular Volume 94.2 FL (87-102); Mean Platelet Volume 9.4 FL (9.6-12.0); Monocytes # 1.3 10*3/uL (0.11-0.8); Monocytes % 7.1 % (1.7-12.7); Neutrophils # 13.5 10*3/uL (1.4-7.4); Neutrophils % 74.6 % (38.7-73.9); Platelet Count 303 T/CUMM (130-400); Red Blood Count 4.86 MC/CUMM (3.8-5.5); Red Cell Distribution Width 13.2 % (9.3-17.3); White Blood Count 18.1 T/CUMM (4-12)
[2017-04-06] MEDS ORDERED: ASPIRIN 325 MG TABLET PO STA (06:13)
[2017-04-06] MEDS ORDERED: SODIUM CHLORIDE 0.9% 500 ML IV STA (06:13)
[2017-04-06 06:23] LABS: Lactic Acid 2.4 MMOL/L (0.4-2.0)
[2017-04-06 06:24] LABS: Alanine Aminotransferase 31 U/L (16-61); Albumin 3.7 G/DL (3.4-5.0); Alkaline Phosphatase 88 U/L (45-117); Aspartate Amino Transferase 21 U/L (0-37); Blood Urea Nitrogen 12 MG/DL (7-18); Calcium 8.8 MG/DL (8.5-10.1); Glucose 107 MG/DL (74-106); Osmolality,Calculated 274.7 MOS/KG (273-304); Potassium 3.2 MMOL/L (3.5-5.1); Sodium 138 MMOL/L (136-145); Total Protein 6.4 G/DL (6.4-8.3); Troponin I Only 0.017 NG/ML (0.00-0.045)
[2017-04-06] MEDS ORDERED: ACETAMINOPHEN 500 MG TABLET PO STA (09:17)
[2017-04-06] MEDS ORDERED: ACETAMINOPHEN 500 MG TABLET ONE (09:18)
[2017-04-06] MEDS ORDERED: POTASSIUM CHLORIDE 20 MEQ TABLET PO ONE ×2 (10:19→11:06)
[2017-04-06] MEDS: POTASSIUM CHLORIDE 20 MEQ TABLET PO PRN (10:21)
[2017-04-06] MEDS ORDERED: ALBUTEROL 2.5 MG/3 ML NEB RESP TX PRN (11:06)
[2017-04-06] MEDS ORDERED: ALBUTEROL/IPRATROPIUM 3 ML NEB RESP TX PRN (11:06)
[2017-04-06] MEDS ORDERED: ACETAMINOPHEN 325 MG TABLET PO PRN (11:06)
[2017-04-06] MEDS ORDERED: SODIUM CHLORIDE 0.9% 1,000 ML IV ONE (11:06)
[2017-04-06] MEDS ORDERED: IPRATROPIUM 500 MCG/2.5 ML NEB RESP TX SCH (11:06)
[2017-04-06] MEDS ORDERED: ALBUTEROL 2.5 MG/3 ML NEB RESP TX SCH (11:06)
[2017-04-06] MEDS ORDERED: ONDANSETRON 4 MG/2 ML VIAL IV PRN (11:06)
[2017-04-06] MEDS: LEVOFLOXACIN INJ 750 MG in PREMIX 1 EACH IV SCH (12:04)
[2017-04-06] MEDS: SODIUM CHLORIDE 0.9% 1,000 ML IV SCH (12:05)
[2017-04-06] MEDS: predniSONE 10 MG TABLET PO SCH (12:27)
[2017-04-06 12:44] LABS: Apearance,Urine CLEAR (Clear); Bilirubin,Urine Negative (Negative); Blood, Urine Negative (Negative); Glucose,Urine (UA) Negative (Negative); Ketones,Urine Negative (Negative); Mucus,Urine Occasional /LPF (Occasional); Nitrite,Urine Negative (Negative); Protein,Urine Negative; RBC,Urine 1 /HPF (0-4); Urine Color Yellow (Yellow); Urine Specific Gravity 1.008 (1.001-1.035); Urine Urobilinogen < 2.0 EU/DL (0.2-1.0)
[2017-04-06] MEDS ORDERED: IPRATROPIUM/ALBUTEROL INHALER INH SCH (13:00)
[2017-04-06] MEDS ORDERED: GLUCAGON 1 MG VIAL IM PRN (14:19)
[2017-04-06] MEDS ORDERED: DEXTROSE 50% 25 GM/50 ML VIAL IV PRN (14:19)
[2017-04-06] MEDS: CLORAZEPATE 7.5 MG TABLET PO SCH ×2 (15:40→22:27)
[2017-04-06] MEDS: INSULIN LISPRO 100 UNIT/ML SUBCUT SCH ×3 (16:13→22:27)
[2017-04-06] MEDS: ALBUTEROL/IPRATROPIUM 3 ML NEB RESP TX SCH ×2 (16:25→19:33)
[2017-04-06] MEDS ORDERED: glipiZIDE 5 MG TABLET PO SCH (16:30)
[2017-04-06] MEDS: GABAPENTIN 100 MG CAPSULE PO SCH ×2 (17:45→21:14)
[2017-04-06] MEDS: traMADol 50 MG TABLET PO SCH ×2 (18:07→21:14)
[2017-04-06] MEDS: THEOPHYLLINE ER (24 HR) 400 MG CAPSULE PO SCH (21:14)
[2017-04-06] MEDS: FLUTICASONE/SALMETEROL 500-50 DISKUS 14 DOSE INH SCH (21:15)
[2017-04-06] MEDS: ENOXAPARIN 40 MG/0.4 ML SYRINGE SUBCUT SCH (21:15)
[2017-04-06] MEDS: ACETAMINOPHEN 325 MG TABLET PO SCH (21:20)
[2017-04-07] MEDS: ALBUTEROL/IPRATROPIUM 3 ML NEB RESP TX SCH ×6 (00:30→20:13)
[2017-04-07] MEDS: SODIUM CHLORIDE 0.9% 1,000 ML IV SCH ×3 (05:09→21:44)
[2017-04-07] MEDS: predniSONE 10 MG TABLET PO SCH ×2 (05:09→12:05)
[2017-04-07 06:25] LABS: Basophils % 0.4 % (0.0-0.8); Eosinophils # 0.1 10*3/uL (0.0-0.87); Hematocrit 39.3 VOL% (42.0-52.0); Hemoglobin 13.1 GM/DL (14.0-18.0); Immature Granulocytes % 1.6 %; Immature Granulocytes Absolute 0.16 #; Lymphocytes # 2.1 10*3/uL (1.4-4.0); Lymphocytes % 21.1 % (21.2-54.2); Mean Corpuscular HGB Conc 33.3 GM/DL (32-36); Mean Corpuscular Hemoglobin 32 PG (27-34); Mean Corpuscular Volume 95.2 FL (87-102); Mean Platelet Volume 9.9 FL (9.6-12.0); Monocytes # 0.8 10*3/uL (0.11-0.8); Monocytes % 8.2 % (1.7-12.7); Neutrophils # 6.8 10*3/uL (1.4-7.4); Neutrophils % 67.7 % (38.7-73.9); Platelet Count 282 T/CUMM (130-400); Red Blood Count 4.13 MC/CUMM (3.8-5.5); Red Cell Distribution Width 13.4 % (9.3-17.3); White Blood Count 10.1 T/CUMM (4-12)
[2017-04-07 06:55] LABS: Calcium 8.6 MG/DL (8.5-10.1); Potassium 3.4 MMOL/L (3.5-5.1)
[2017-04-07] MEDS ORDERED: IPRATROPIUM 500 MCG/2.5 ML NEB RESP TX SCH (07:00)
[2017-04-07 07:58] LABS: Hemoglobin A1C 7.1 % (4.2-6.3); Theophylline 7.6 UG/ML (10-20)
[2017-04-07] MEDS: INSULIN LISPRO 100 UNIT/ML SUBCUT SCH ×4 (07:59→21:43)
[2017-04-07] MEDS: ASPIRIN EC 81 MG TABLET PO SCH (08:10)
[2017-04-07] MEDS: GABAPENTIN 100 MG CAPSULE PO SCH ×3 (08:10→21:42)
[2017-04-07] MEDS: MONTELUKAST 10 MG TABLET PO SCH (08:10)
[2017-04-07] MEDS: PANTOPRAZOLE 40 MG TABLET PO SCH (08:10)
[2017-04-07] MEDS: THEOPHYLLINE ER (24 HR) 400 MG CAPSULE PO SCH ×2 (08:10→21:42)
[2017-04-07] MEDS: CLORAZEPATE 7.5 MG TABLET PO SCH ×3 (08:11→21:42)
[2017-04-07] MEDS: traMADol 50 MG TABLET PO SCH ×2 (08:11→21:42)
[2017-04-07] MEDS: ACETAMINOPHEN 325 MG TABLET PO SCH ×2 (08:11→21:42)
[2017-04-07] MEDS: FLUTICASONE/SALMETEROL 500-50 DISKUS 14 DOSE INH SCH ×2 (08:16→21:44)
[2017-04-07] MEDS: POTASSIUM CHLORIDE 20 MEQ TABLET PO PRN ×2 (08:45→15:58)
[2017-04-07] MEDS: LEVOFLOXACIN INJ 750 MG in PREMIX 1 EACH IV SCH (12:05)
[2017-04-07] MEDS: glipiZIDE 5 MG TABLET PO SCH (15:58)
[2017-04-07] MEDS ORDERED: metFORMIN 500 MG TABLET PO SCH (17:00)
[2017-04-07] MEDS: ENOXAPARIN 40 MG/0.4 ML SYRINGE SUBCUT SCH (21:42)
[2017-04-07] MEDS: METOPROLOL TARTRATE 25 MG TABLET PO SCH (21:42)
[2017-04-08] MEDS: ALBUTEROL/IPRATROPIUM 3 ML NEB RESP TX SCH ×7 (00:13→23:16)
[2017-04-08] MEDS: predniSONE 10 MG TABLET PO SCH ×2 (05:07→13:35)
[2017-04-08 06:43] LABS: Basophils % 0.3 % (0.0-0.8); Eosinophils # 0.1 10*3/uL (0.0-0.87); Hematocrit 34.9 VOL% (42.0-52.0); Hemoglobin 11.7 GM/DL (14.0-18.0); Immature Granulocytes % 1.4 %; Immature Granulocytes Absolute 0.17 #; Lymphocytes # 1.9 10*3/uL (1.4-4.0); Lymphocytes % 15.8 % (21.2-54.2); Mean Corpuscular HGB Conc 33.5 GM/DL (32-36); Mean Corpuscular Hemoglobin 32 PG (27-34); Mean Corpuscular Volume 94.6 FL (87-102); Mean Platelet Volume 9.3 FL (9.6-12.0); Monocytes # 1.1 10*3/uL (0.11-0.8); Monocytes % 9.1 % (1.7-12.7); Neutrophils # 8.5 10*3/uL (1.4-7.4); Neutrophils % 72.4 % (38.7-73.9); Platelet Count 269 T/CUMM (130-400); Red Blood Count 3.69 MC/CUMM (3.8-5.5); Red Cell Distribution Width 13.8 % (9.3-17.3); White Blood Count 11.8 T/CUMM (4-12)
[2017-04-08 07:13] LABS: Calcium 8.4 MG/DL (8.5-10.1); Potassium 3.7 MMOL/L (3.5-5.1)
[2017-04-08] MEDS: INSULIN LISPRO 100 UNIT/ML SUBCUT SCH ×4 (08:51→21:25)
[2017-04-08] MEDS: glipiZIDE 5 MG TABLET PO SCH ×2 (09:53→16:38)
[2017-04-08] MEDS: FLUTICASONE/SALMETEROL 500-50 DISKUS 14 DOSE INH SCH ×2 (09:54→21:43)
[2017-04-08] MEDS: ASPIRIN EC 81 MG TABLET PO SCH (09:54)
[2017-04-08] MEDS: PANTOPRAZOLE 40 MG TABLET PO SCH (09:55)
[2017-04-08] MEDS: GABAPENTIN 100 MG CAPSULE PO SCH ×3 (09:55→21:40)
[2017-04-08] MEDS: THEOPHYLLINE ER (24 HR) 400 MG CAPSULE PO SCH ×2 (09:55→21:39)
[2017-04-08] MEDS: METOPROLOL TARTRATE 25 MG TABLET PO SCH ×2 (09:55→21:39)
[2017-04-08] MEDS: MONTELUKAST 10 MG TABLET PO SCH (09:55)
[2017-04-08] MEDS: POTASSIUM CHLORIDE 20 MEQ TABLET PO PRN (09:56)
[2017-04-08] MEDS: CLORAZEPATE 7.5 MG TABLET PO SCH ×3 (09:56→21:39)
[2017-04-08] MEDS: ACETAMINOPHEN 325 MG TABLET PO SCH ×2 (09:56→21:39)
[2017-04-08] MEDS: SODIUM CHLORIDE 0.9% 1,000 ML IV SCH ×2 (09:56→23:22)
[2017-04-08] MEDS: traMADol 50 MG TABLET PO SCH ×2 (09:56→21:43)
[2017-04-08] MEDS: LEVOFLOXACIN INJ 750 MG in PREMIX 1 EACH IV SCH (13:35)
[2017-04-08] MEDS: POTASSIUM CHLORIDE 20 MEQ TABLET PO SCH ×2 (16:37→18:07)
[2017-04-08] MEDS: BENZONATATE 100 MG CAPSULE PO SCH ×2 (16:38→21:39)
[2017-04-08] MEDS: ENOXAPARIN 40 MG/0.4 ML SYRINGE SUBCUT SCH (21:40)
[2017-04-09] MEDS: ALBUTEROL/IPRATROPIUM 3 ML NEB RESP TX SCH ×5 (04:01→20:01)
[2017-04-09] MEDS: predniSONE 10 MG TABLET PO SCH ×2 (05:54→12:22)
[2017-04-09 06:19] LABS: Basophils % 0.3 % (0.0-0.8); Eosinophils # 0.1 10*3/uL (0.0-0.87); Eosinophils % 1.1 % (0.00-10.9); Hematocrit 37.5 VOL% (42.0-52.0); Hemoglobin 12.4 GM/DL (14.0-18.0); Immature Granulocytes % 1.7 %; Lymphocytes % 16.5 % (21.2-54.2); Mean Corpuscular HGB Conc 33.1 GM/DL (32-36); Mean Corpuscular Hemoglobin 32 PG (27-34); Mean Corpuscular Volume 96.2 FL (87-102); Mean Platelet Volume 9.7 FL (9.6-12.0); Monocytes % 7.9 % (1.7-12.7); Neutrophils # 8.8 10*3/uL (1.4-7.4); Neutrophils % 72.5 % (38.7-73.9); Platelet Count 295 T/CUMM (130-400); Red Cell Distribution Width 14.1 % (9.3-17.3); White Blood Count 12.1 T/CUMM (4-12)
[2017-04-09 06:51] LABS: Calcium 8.6 MG/DL (8.5-10.1); Osmolality,Calculated 282.8 MOS/KG (273-304); Potassium 4.4 MMOL/L (3.5-5.1)
[2017-04-09 07:00] LABS: Risk Ratio 2.59; VLDL CHOLESTEROL 18.6 MG/DL
[2017-04-09] MEDS: INSULIN LISPRO 100 UNIT/ML SUBCUT SCH ×4 (08:41→22:20)
[2017-04-09] MEDS: FLUTICASONE/SALMETEROL 500-50 DISKUS 14 DOSE INH SCH ×2 (08:53→22:25)
[2017-04-09] MEDS: ACETAMINOPHEN 325 MG TABLET PO SCH ×2 (08:54→22:20)
[2017-04-09] MEDS: CLORAZEPATE 7.5 MG TABLET PO SCH ×3 (08:56→22:20)
[2017-04-09] MEDS: BENZONATATE 100 MG CAPSULE PO SCH ×3 (08:56→22:20)
[2017-04-09] MEDS: THEOPHYLLINE ER (24 HR) 400 MG CAPSULE PO SCH ×2 (08:56→22:19)
[2017-04-09] MEDS: MONTELUKAST 10 MG TABLET PO SCH (08:56)
[2017-04-09] MEDS: glipiZIDE 5 MG TABLET PO SCH ×2 (08:57→17:22)
[2017-04-09] MEDS: traMADol 50 MG TABLET PO SCH ×2 (08:57→22:20)
[2017-04-09] MEDS: METOPROLOL TARTRATE 25 MG TABLET PO SCH ×2 (08:58→22:20)
[2017-04-09] MEDS: ASPIRIN EC 81 MG TABLET PO SCH (08:58)
[2017-04-09] MEDS: GABAPENTIN 100 MG CAPSULE PO SCH ×3 (08:58→22:20)
[2017-04-09] MEDS: PANTOPRAZOLE 40 MG TABLET PO SCH (09:01)
[2017-04-09] MEDS: LEVOFLOXACIN INJ 750 MG in PREMIX 1 EACH IV SCH (12:23)
[2017-04-09] MEDS ORDERED: ROSUVASTATIN 20 MG TABLET PO SCH (21:00)
[2017-04-09] MEDS: ENOXAPARIN 40 MG/0.4 ML SYRINGE SUBCUT SCH (22:22)
[2017-04-10] MEDS: ALBUTEROL/IPRATROPIUM 3 ML NEB RESP TX SCH ×3 (00:20→08:08)
[2017-04-10] MEDS: predniSONE 10 MG TABLET PO SCH (06:12)
[2017-04-10 06:57] LABS: Basophils # 0.1 10*3/uL (0.0-0.2); Basophils % 0.4 % (0.0-0.8); Eosinophils # 0.2 10*3/uL (0.0-0.87); Eosinophils % 1.9 % (0.00-10.9); Hematocrit 36.9 VOL% (42.0-52.0); Hemoglobin 12.4 GM/DL (14.0-18.0); Immature Granulocytes % 2.8 %; Immature Granulocytes Absolute 0.32 #; Lymphocytes # 2.5 10*3/uL (1.4-4.0); Lymphocytes % 21.9 % (21.2-54.2); Mean Corpuscular HGB Conc 33.6 GM/DL (32-36); Mean Corpuscular Hemoglobin 33 PG (27-34); Mean Corpuscular Volume 97.1 FL (87-102); Mean Platelet Volume 9.4 FL (9.6-12.0); Monocytes # 1.2 10*3/uL (0.11-0.8); Monocytes % 10.4 % (1.7-12.7); Neutrophils # 7.2 10*3/uL (1.4-7.4); Neutrophils % 62.6 % (38.7-73.9); Platelet Count 291 T/CUMM (130-400); Red Cell Distribution Width 14.4 % (9.3-17.3); White Blood Count 11.5 T/CUMM (4-12)
[2017-04-10 07:33] LABS: Calcium 8.8 MG/DL (8.5-10.1); Osmolality,Calculated 286.6 MOS/KG (273-304); Potassium 4.2 MMOL/L (3.5-5.1)
[2017-04-10 07:47] VITALS: BP 143/82
[2017-04-10] MEDS: INSULIN LISPRO 100 UNIT/ML SUBCUT SCH (07:56)
[2017-04-10] MEDS: glipiZIDE 5 MG TABLET PO SCH (07:57)
[2017-04-10] MEDS: MONTELUKAST 10 MG TABLET PO SCH (09:10)
[2017-04-10] MEDS: THEOPHYLLINE ER (24 HR) 400 MG CAPSULE PO SCH (09:10)
[2017-04-10] MEDS: GABAPENTIN 100 MG CAPSULE PO SCH (09:10)
[2017-04-10] MEDS: ACETAMINOPHEN 325 MG TABLET PO SCH (09:10)
[2017-04-10] MEDS: BENZONATATE 100 MG CAPSULE PO SCH (09:10)
[2017-04-10] MEDS: CLORAZEPATE 7.5 MG TABLET PO SCH (09:10)
[2017-04-10] MEDS: PANTOPRAZOLE 40 MG TABLET PO SCH (09:11)
[2017-04-10] MEDS: traMADol 50 MG TABLET PO SCH (09:11)
[2017-04-10] MEDS: ASPIRIN EC 81 MG TABLET PO SCH (09:11)
[2017-04-10] MEDS: METOPROLOL TARTRATE 25 MG TABLET PO SCH (09:11)
[2017-04-10] MEDS: FLUTICASONE/SALMETEROL 500-50 DISKUS 14 DOSE INH SCH (09:11)
== END 2017-04-10 12:28 | disposition home or self-care (01) | DRG 871 ==
LOC: EDBD → EDUNIT# → N.ED 05:28 → N.EDINP 09:34 → SUATTDRO 09:34 → N.5E 10:50
PROVIDERS: ADMIT Internal Medicine; ATTEND Internal Medicine

== ENCOUNTER 2017-06-12 21:40 | Inpatient (IN) ==
[2017-06-12] MEDS ORDERED: methylPREDNISolone SOD SUC 125 MG/2 ML VIAL IV STA (22:42)
[2017-06-12] MEDS ORDERED: ALBUTEROL/IPRATROPIUM 3 ML NEB RESP TX STA (22:42)
[2017-06-12] MEDS ORDERED: EPINEPHrine 1 MG/10 ML SYRINGE ONE (23:02)
[2017-06-12] MEDS ORDERED: EPINEPHrine 1 MG/ML VIAL ONE (23:02)
[2017-06-13 00:44] LABS: VBG Base Excess 13.9 MEQ/L (0-4); VBG HCO3 37.1 MEQ/L (24-28); VBG Oxygen Saturation 75.9 %; VBG PCO2 60.7 MMHG (41-51); VBG PH 7.447; VBG PO2 42.2 MMHG (17-40)
[2017-06-13 00:50] LABS: Basophils # 0.1 10*3/uL (0.0-0.2); Basophils % 0.6 % (0.0-0.8); Eosinophils % 0.1 % (0.00-10.9); Hematocrit 46.6 VOL% (42.0-52.0); Immature Granulocytes % 5.2 %; Immature Granulocytes Absolute 1.13 #; Lymphocytes # 1.8 10*3/uL (1.4-4.0); Lymphocytes % 8.3 % (21.2-54.2); Mean Corpuscular HGB Conc 34.3 GM/DL (32-36); Mean Corpuscular Hemoglobin 32 PG (27-34); Mean Corpuscular Volume 92.1 FL (87-102); Mean Platelet Volume 9.8 FL (9.6-12.0); Monocytes # 1.7 10*3/uL (0.11-0.8); Monocytes % 7.7 % (1.7-12.7); Neutrophils # 17.1 10*3/uL (1.4-7.4); Neutrophils % 78.1 % (38.7-73.9); Platelet Count 373 T/CUMM (130-400); Red Blood Count 5.06 MC/CUMM (3.8-5.5); Red Cell Distribution Width 13.7 % (9.3-17.3); White Blood Count 21.9 T/CUMM (4-12)
[2017-06-13 00:54] LABS: Alanine Aminotransferase 34 U/L (16-61); Albumin 3.5 G/DL (3.4-5.0); Alkaline Phosphatase 114 U/L (45-117); Aspartate Amino Transferase 23 U/L (0-37); Bilirubin,Total < 0.39 MG/DL (0.2-1.0); Blood Urea Nitrogen 18 MG/DL (7-18); Calcium 8.6 MG/DL (8.5-10.1); Glucose 211 MG/DL (74-106); Osmolality,Calculated 280.8 MOS/KG (273-304); Sodium 137 MMOL/L (136-145); Total Protein 6.6 G/DL (6.4-8.3); Troponin I Only < 0.015 NG/ML (0.00-0.045)
[2017-06-13 01:16] LABS: Band Neutrophils 4 % (0-10); Lymphocytes 13 % (20-55); Segmented Neutrophils 77 % (50-85)
[2017-06-13 01:21] LABS: Giant Platelets Few; Platelet Estimate Normal; Total Cells Counted 100
[2017-06-13] MEDS ORDERED: CEFEPIME 2,000 MG in SODIUM CHLORIDE 0.9% 100 ML IV STA (01:36)
[2017-06-13] MEDS ORDERED: VANCOMYCIN INJ 1,000 MG in SODIUM CHLORIDE 0.9% 250 ML IV STA (01:37)
[2017-06-13] MEDS ORDERED: methylPREDNISolone SOD SUC 125 MG/2 ML VIAL ONE (03:03)
[2017-06-13] MEDS ORDERED: VANCOMYCIN 1,000 MG VIAL ONE (03:04)
[2017-06-13] MEDS ORDERED: ALBUTEROL 2.5 MG/3 ML NEB RESP TX PRN (03:30)
[2017-06-13] MEDS ORDERED: POTASSIUM CHLORIDE 20 MEQ TABLET PO ONE (04:00)
[2017-06-13] MEDS: ALBUTEROL 0.4 MG/ML 30 ML/BOTTLE PO SCH ×3 (05:40→21:17)
[2017-06-13] MEDS ORDERED: CEFEPIME 2,000 MG in SYRINGE 1 EACH IV ONE (06:00)
[2017-06-13 06:31] LABS: Basophils # 0.1 10*3/uL (0.0-0.2); Basophils % 0.7 % (0.0-0.8); Eosinophils % 0.1 % (0.00-10.9); Hematocrit 46.4 VOL% (42.0-52.0); Hemoglobin 15.4 GM/DL (14.0-18.0); Immature Granulocytes Absolute 0.93 #; Lymphocytes # 1.3 10*3/uL (1.4-4.0); Lymphocytes % 6.9 % (21.2-54.2); Mean Corpuscular HGB Conc 33.2 GM/DL (32-36); Mean Corpuscular Hemoglobin 31 PG (27-34); Mean Corpuscular Volume 94.1 FL (87-102); Mean Platelet Volume 9.8 FL (9.6-12.0); Monocytes # 0.5 10*3/uL (0.11-0.8); Monocytes % 2.6 % (1.7-12.7); Neutrophils # 15.9 10*3/uL (1.4-7.4); Neutrophils % 84.7 % (38.7-73.9); Platelet Count 338 T/CUMM (130-400); Red Blood Count 4.93 MC/CUMM (3.8-5.5); Red Cell Distribution Width 13.6 % (9.3-17.3); White Blood Count 18.7 T/CUMM (4-12)
[2017-06-13] MEDS: LEVOFLOXACIN INJ 750 MG in PREMIX 1 EACH IV SCH (06:46)
[2017-06-13 06:56] LABS: Band Neutrophils 1 % (0-10); Giant Platelets Few; Hypochromasia 1+; Lactic Acid 6.5 MMOL/L (0.4-2.0); Lymphocytes 8 % (20-55); Platelet Estimate Adequate; Segmented Neutrophils 89 % (50-85); Total Cells Counted 100
[2017-06-13] MEDS: ALBUTEROL/IPRATROPIUM 3 ML NEB RESP TX SCH ×3 (07:09→19:34)
[2017-06-13 07:11] LABS: Albumin 3.8 G/DL (3.4-5.0); Bilirubin,Total 0.4 MG/DL (0.2-1.0); Calcium 9.7 MG/DL (8.5-10.1); Osmolality,Calculated 276.5 MOS/KG (273-304); Potassium 3.3 MMOL/L (3.5-5.1); Total Protein 7.4 G/DL (6.4-8.3)
[2017-06-13] MEDS: metOLazone 2.5 MG TABLET PO SCH (08:26)
[2017-06-13] MEDS: POTASSIUM CHLORIDE 20 MEQ TABLET PO SCH ×2 (08:26→21:16)
[2017-06-13] MEDS: predniSONE 20 MG TABLET PO SCH (08:26)
[2017-06-13] MEDS: THEOPHYLLINE ER (24 HR) 400 MG CAPSULE PO SCH ×2 (08:26→21:17)
[2017-06-13] MEDS: metFORMIN 500 MG TABLET PO SCH ×2 (08:26→16:03)
[2017-06-13] MEDS: ASPIRIN EC 81 MG TABLET PO SCH (08:26)
[2017-06-13] MEDS: glipiZIDE 5 MG TABLET PO SCH ×2 (08:26→16:03)
[2017-06-13] MEDS: miSOPROStol 200 MCG TABLET PO SCH ×2 (08:27→21:17)
[2017-06-13] MEDS: CLORAZEPATE 7.5 MG TABLET PO SCH ×3 (08:27→21:17)
[2017-06-13] MEDS: PANTOPRAZOLE 40 MG TABLET PO SCH ×2 (08:27→08:32)
[2017-06-13] MEDS: METOPROLOL TARTRATE 25 MG TABLET PO SCH ×2 (08:32→21:17)
[2017-06-13] MEDS: MONTELUKAST 10 MG TABLET PO SCH (08:32)
[2017-06-13] MEDS: FLUTICASONE/SALMETEROL 500-50 DISKUS 14 DOSE INH SCH ×2 (08:32→21:17)
[2017-06-13] MEDS ORDERED: SODIUM CHLORIDE 0.9% 1,000 ML IV ONE (08:56)
[2017-06-13] MEDS: SODIUM CHLORIDE 0.9% 1,000 ML IV SCH (09:43)
[2017-06-13] MEDS: DOCUSATE SODIUM 100 MG CAPSULE PO SCH ×2 (10:42→21:17)
[2017-06-13 11:32] LABS: Apearance,Urine CLEAR (Clear); Bilirubin,Urine Negative (Negative); Blood, Urine Negative (Negative); Glucose,Urine (UA) >=500 mg/dL (Negative); Ketones,Urine Negative (Negative); Nitrite,Urine Negative (Negative); Protein,Urine Negative; RBC,Urine 1 /HPF (0-4); Urine Color Straw (Yellow); Urine Specific Gravity 1.013 (1.001-1.035); Urine Urobilinogen < 2.0 EU/DL (0.2-1.0); WBC,Urine <1 /HPF (0-6)
[2017-06-13] MEDS: CYCLOBENZAPRINE 10 MG TABLET PO SCH ×2 (14:40→21:17)
[2017-06-13] MEDS: POLYETHYLENE GLYCOL POWDER 17 GM PACK PO SCH (21:16)
[2017-06-13] MEDS: POTASSIUM CHLORIDE 20 MEQ TABLET PO PRN (22:54)
[2017-06-14] MEDS: ALBUTEROL/IPRATROPIUM 3 ML NEB RESP TX SCH ×4 (00:13→20:06)
[2017-06-14] MEDS: POTASSIUM CHLORIDE 20 MEQ TABLET PO PRN (01:44)
[2017-06-14] MEDS: SODIUM CHLORIDE 0.9% 1,000 ML IV SCH ×2 (06:19)
[2017-06-14] MEDS: LEVOFLOXACIN INJ 750 MG in PREMIX 1 EACH IV SCH (06:19)
[2017-06-14] MEDS: ALBUTEROL 0.4 MG/ML 30 ML/BOTTLE PO SCH ×2 (06:19→14:21)
[2017-06-14 06:38] LABS: Basophils # 0.1 10*3/uL (0.0-0.2); Basophils % 0.3 % (0.0-0.8); Eosinophils % 0.1 % (0.00-10.9); Hematocrit 39.6 VOL% (42.0-52.0); Hemoglobin 13.4 GM/DL (14.0-18.0); Immature Granulocytes % 3.9 %; Immature Granulocytes Absolute 0.83 #; Lymphocytes # 2.5 10*3/uL (1.4-4.0); Lymphocytes % 11.4 % (21.2-54.2); Mean Corpuscular HGB Conc 33.8 GM/DL (32-36); Mean Corpuscular Hemoglobin 32 PG (27-34); Mean Platelet Volume 9.4 FL (9.6-12.0); Monocytes # 1.6 10*3/uL (0.11-0.8); Monocytes % 7.4 % (1.7-12.7); Neutrophils # 16.6 10*3/uL (1.4-7.4); Neutrophils % 76.9 % (38.7-73.9); Platelet Count 314 T/CUMM (130-400); Red Blood Count 4.26 MC/CUMM (3.8-5.5); Red Cell Distribution Width 13.8 % (9.3-17.3); White Blood Count 21.5 T/CUMM (4-12)
[2017-06-14 06:54] LABS: Lactic Acid 3.1 MMOL/L (0.4-2.0)
[2017-06-14 07:02] LABS: Band Neutrophils 2 % (0-10); Giant Platelets Few; Hypochromasia 1+; Lymphocytes 11 % (20-55); Platelet Estimate Adequate; Segmented Neutrophils 83 % (50-85); Total Cells Counted 100
[2017-06-14 07:12] LABS: Calcium 9.4 MG/DL (8.5-10.1); Osmolality,Calculated 278.5 MOS/KG (273-304); Potassium 3.4 MMOL/L (3.5-5.1)
[2017-06-14] MEDS ORDERED: POLYETHYLENE GLYCOL POWDER 17 GM PACK PO SCH (09:00)
[2017-06-14] MEDS: METOPROLOL TARTRATE 25 MG TABLET PO SCH ×2 (09:16→21:27)
[2017-06-14] MEDS: POTASSIUM CHLORIDE 20 MEQ TABLET PO SCH ×2 (09:16→21:26)
[2017-06-14] MEDS: metFORMIN 500 MG TABLET PO SCH ×2 (09:16→17:05)
[2017-06-14] MEDS: POLYETHYLENE GLYCOL POWDER 17 GM PACK PO SCH ×2 (09:16→21:25)
[2017-06-14] MEDS: predniSONE 20 MG TABLET PO SCH (09:16)
[2017-06-14] MEDS: THEOPHYLLINE ER (24 HR) 400 MG CAPSULE PO SCH ×2 (09:16→21:26)
[2017-06-14] MEDS: MONTELUKAST 10 MG TABLET PO SCH (09:16)
[2017-06-14] MEDS: metOLazone 2.5 MG TABLET PO SCH (09:16)
[2017-06-14] MEDS: CLORAZEPATE 7.5 MG TABLET PO SCH ×3 (09:17→21:26)
[2017-06-14] MEDS: glipiZIDE 5 MG TABLET PO SCH ×2 (09:17→17:05)
[2017-06-14] MEDS: miSOPROStol 200 MCG TABLET PO SCH ×2 (09:17→21:25)
[2017-06-14] MEDS: ASPIRIN EC 81 MG TABLET PO SCH (09:17)
[2017-06-14] MEDS: DOCUSATE SODIUM 100 MG CAPSULE PO SCH ×2 (09:17→21:26)
[2017-06-14] MEDS: CYCLOBENZAPRINE 10 MG TABLET PO SCH ×3 (09:17→21:27)
[2017-06-14] MEDS: PANTOPRAZOLE 40 MG TABLET PO SCH ×2 (09:17→09:24)
[2017-06-14] MEDS: FLUTICASONE/SALMETEROL 500-50 DISKUS 14 DOSE INH SCH ×2 (09:20→21:24)
[2017-06-14] MEDS ORDERED: SODIUM PHOSPHATE ENEMA 133 ML BOTTLE RECTAL ONE (10:59)
[2017-06-14] MEDS ORDERED: SODIUM PHOSPHATE ENEMA 133 ML BOTTLE RECTAL PRN (10:59)
[2017-06-14] MEDS: LACTULOSE 20 GM/30 ML UDCUP PO SCH ×2 (14:21→21:24)
[2017-06-14] MEDS: TAMSULOSIN 0.4 MG CAPSULE PO SCH (21:26)
[2017-06-15] MEDS: ALBUTEROL/IPRATROPIUM 3 ML NEB RESP TX SCH ×5 (00:32→19:45)
[2017-06-15] MEDS: ALBUTEROL 0.4 MG/ML 30 ML/BOTTLE PO SCH ×4 (02:01→21:55)
[2017-06-15 04:12] LABS: Basophils # 0.1 10*3/uL (0.0-0.2); Basophils % 0.6 % (0.0-0.8); Eosinophils # 0.1 10*3/uL (0.0-0.87); Eosinophils % 0.2 % (0.00-10.9); Hematocrit 39.3 VOL% (42.0-52.0); Hemoglobin 13.2 GM/DL (14.0-18.0); Immature Granulocytes % 4.4 %; Immature Granulocytes Absolute 0.93 #; Lymphocytes # 2.8 10*3/uL (1.4-4.0); Lymphocytes % 12.9 % (21.2-54.2); Mean Corpuscular HGB Conc 33.6 GM/DL (32-36); Mean Corpuscular Hemoglobin 32 PG (27-34); Mean Corpuscular Volume 94.5 FL (87-102); Mean Platelet Volume 9.5 FL (9.6-12.0); Monocytes # 1.5 10*3/uL (0.11-0.8); Neutrophils # 15.9 10*3/uL (1.4-7.4); Neutrophils % 74.9 % (38.7-73.9); Platelet Count 301 T/CUMM (130-400); Red Blood Count 4.16 MC/CUMM (3.8-5.5); Red Cell Distribution Width 13.9 % (9.3-17.3); White Blood Count 21.3 T/CUMM (4-12)
[2017-06-15 04:31] LABS: Calcium 9.4 MG/DL (8.5-10.1); Osmolality,Calculated 275.7 MOS/KG (273-304); Potassium 3.4 MMOL/L (3.5-5.1)
[2017-06-15 04:36] LABS: Lactic Acid 3.1 MMOL/L (0.4-2.0)
[2017-06-15] MEDS: LEVOFLOXACIN INJ 750 MG in PREMIX 1 EACH IV SCH (05:10)
[2017-06-15 05:41] LABS: Lymphocytes 14 % (20-55); Platelet Estimate Normal; Segmented Neutrophils 82 % (50-85); Total Cells Counted 100
[2017-06-15] MEDS ORDERED: ceFAZolin 2,000 MG in PREMIX 1 EACH IV ONE (06:30)
[2017-06-15] MEDS ORDERED: TISSUE ADHESIVE 1 EACH APPLICATOR TOP ONE (07:54)
[2017-06-15] MEDS ORDERED: DEXAMETHASONE 10 MG/1 ML VIAL ONE (07:54)
[2017-06-15] MEDS ORDERED: LIDOCAINE 1% 50 ML VIAL ONE (07:54)
[2017-06-15] MEDS ORDERED: ERGOCALCIFEROL 50,000 UNIT CAPSULE PO SCH (08:30)
[2017-06-15] MEDS ORDERED: MAGNESIUM CHLORIDE 64 MG TABLET PO SCH (09:00)
[2017-06-15] MEDS: glipiZIDE 5 MG TABLET PO SCH ×2 (09:26→17:16)
[2017-06-15] MEDS: metFORMIN 500 MG TABLET PO SCH ×2 (09:26→17:15)
[2017-06-15] MEDS: METOPROLOL TARTRATE 25 MG TABLET PO SCH ×2 (09:42→21:32)
[2017-06-15] MEDS ORDERED: ceFAZolin 1,000 MG VIAL ONE (10:36)
[2017-06-15] MEDS: LACTULOSE 20 GM/30 ML UDCUP PO SCH ×3 (10:42→21:26)
[2017-06-15] MEDS: CYCLOBENZAPRINE 10 MG TABLET PO SCH ×3 (10:42→21:32)
[2017-06-15] MEDS: CLORAZEPATE 7.5 MG TABLET PO SCH ×3 (10:44→21:31)
[2017-06-15] MEDS ORDERED: MIDAZOLAM 2 MG/2 ML VIAL ONE (11:22)
[2017-06-15] MEDS ORDERED: PROPOFOL 200 MG/20 ML VIAL IV ONE (11:22)
[2017-06-15] MEDS ORDERED: KETOROLAC 30 MG/1 ML VIAL ONE (11:23)
[2017-06-15] MEDS ORDERED: ETOMIDATE 40 MG/20 ML VIAL IV ONE (11:23)
[2017-06-15] MEDS: ASPIRIN EC 81 MG TABLET PO SCH (14:18)
[2017-06-15] MEDS: DOCUSATE SODIUM 100 MG CAPSULE PO SCH ×2 (14:19→21:31)
[2017-06-15] MEDS: FLUTICASONE/SALMETEROL 500-50 DISKUS 14 DOSE INH SCH ×2 (14:19→21:24)
[2017-06-15] MEDS: miSOPROStol 200 MCG TABLET PO SCH ×2 (14:19→21:31)
[2017-06-15] MEDS: LIDOCAINE 5% PATCH TRANSDERM SCH (14:20)
[2017-06-15] MEDS: POLYETHYLENE GLYCOL POWDER 17 GM PACK PO SCH ×2 (14:20→21:26)
[2017-06-15] MEDS: PANTOPRAZOLE 40 MG TABLET PO SCH (14:21)
[2017-06-15] MEDS: predniSONE 20 MG TABLET PO SCH (14:21)
[2017-06-15] MEDS: MONTELUKAST 10 MG TABLET PO SCH (14:22)
[2017-06-15] MEDS: CALCITRIOL 0.5 MCG CAPSULE PO SCH (14:22)
[2017-06-15] MEDS: THEOPHYLLINE ER (24 HR) 400 MG CAPSULE PO SCH ×2 (14:22→21:31)
[2017-06-15] MEDS: metOLazone 2.5 MG TABLET PO SCH (14:23)
[2017-06-15] MEDS: POTASSIUM CHLORIDE 20 MEQ TABLET PO SCH ×3 (14:24→21:31)
[2017-06-15] MEDS: MAGNESIUM OXIDE 400 MG TABLET PO SCH (14:30)
[2017-06-15] MEDS: TAMSULOSIN 0.4 MG CAPSULE PO SCH (21:31)
[2017-06-15] MEDS: ceFAZolin 2,000 MG in PREMIX 1 EACH IV SCH (21:58)
[2017-06-16] MEDS: ALBUTEROL/IPRATROPIUM 3 ML NEB RESP TX SCH ×4 (00:15→19:12)
[2017-06-16] MEDS: ceFAZolin 2,000 MG in PREMIX 1 EACH IV SCH (04:01)
[2017-06-16] MEDS: LEVOFLOXACIN INJ 750 MG in PREMIX 1 EACH IV SCH (05:19)
[2017-06-16] MEDS: ALBUTEROL 0.4 MG/ML 30 ML/BOTTLE PO SCH ×2 (05:20→14:01)
[2017-06-16 06:36] LABS: Basophils # 0.1 10*3/uL (0.0-0.2); Basophils % 0.6 % (0.0-0.8); Hemoglobin 12.7 GM/DL (14.0-18.0); Immature Granulocytes % 5.2 %; Lymphocytes # 0.9 10*3/uL (1.4-4.0); Lymphocytes % 5.4 % (21.2-54.2); Mean Corpuscular HGB Conc 33.4 GM/DL (32-36); Mean Corpuscular Hemoglobin 32 PG (27-34); Mean Corpuscular Volume 95.7 FL (87-102); Mean Platelet Volume 9.7 FL (9.6-12.0); Monocytes # 0.6 10*3/uL (0.11-0.8); Monocytes % 3.4 % (1.7-12.7); Neutrophils # 14.7 10*3/uL (1.4-7.4); Neutrophils % 85.4 % (38.7-73.9); Platelet Count 268 T/CUMM (130-400); Red Blood Count 3.97 MC/CUMM (3.8-5.5); White Blood Count 17.3 T/CUMM (4-12)
[2017-06-16 07:03] LABS: Band Neutrophils 3 % (0-10); Lymphocytes 11 % (20-55); Macrocytosis 1+; Platelet Estimate Normal; Segmented Neutrophils 82 % (50-85); Total Cells Counted 100
[2017-06-16 07:10] LABS: Osmolality,Calculated 284.7 MOS/KG (273-304); Potassium 4.3 MMOL/L (3.5-5.1)
[2017-06-16] MEDS: CLORAZEPATE 7.5 MG TABLET PO SCH ×3 (08:45→21:46)
[2017-06-16] MEDS: METOPROLOL TARTRATE 25 MG TABLET PO SCH ×3 (08:45→21:47)
[2017-06-16] MEDS: CALCITRIOL 0.5 MCG CAPSULE PO SCH (08:45)
[2017-06-16] MEDS: PANTOPRAZOLE 40 MG TABLET PO SCH (08:45)
[2017-06-16] MEDS: POTASSIUM CHLORIDE 20 MEQ TABLET PO SCH ×3 (08:45→21:47)
[2017-06-16] MEDS: LACTULOSE 20 GM/30 ML UDCUP PO SCH ×3 (08:46→21:47)
[2017-06-16] MEDS: DOCUSATE SODIUM 100 MG CAPSULE PO SCH ×2 (08:46→21:46)
[2017-06-16] MEDS: MAGNESIUM OXIDE 400 MG TABLET PO SCH ×2 (08:46→21:47)
[2017-06-16] MEDS: ASPIRIN EC 81 MG TABLET PO SCH (08:46)
[2017-06-16] MEDS: LIDOCAINE 5% PATCH TRANSDERM SCH (08:46)
[2017-06-16] MEDS: miSOPROStol 200 MCG TABLET PO SCH ×2 (08:46→21:53)
[2017-06-16] MEDS: THEOPHYLLINE ER (24 HR) 400 MG CAPSULE PO SCH (08:46)
[2017-06-16] MEDS: POLYETHYLENE GLYCOL POWDER 17 GM PACK PO SCH ×2 (08:46→21:45)
[2017-06-16] MEDS: CYCLOBENZAPRINE 10 MG TABLET PO SCH ×3 (08:47→21:47)
[2017-06-16] MEDS: glipiZIDE 5 MG TABLET PO SCH ×2 (08:47→16:31)
[2017-06-16] MEDS: MONTELUKAST 10 MG TABLET PO SCH (08:47)
[2017-06-16] MEDS: metFORMIN 500 MG TABLET PO SCH ×2 (08:47→16:31)
[2017-06-16] MEDS: FLUTICASONE/SALMETEROL 500-50 DISKUS 14 DOSE INH SCH ×2 (08:47→21:53)
[2017-06-16] MEDS: metOLazone 2.5 MG TABLET PO SCH (08:48)
[2017-06-16] MEDS: IBUPROFEN 400 MG TABLET PO PRN (09:03)
[2017-06-16] MEDS: predniSONE 20 MG TABLET PO SCH (09:08)
[2017-06-16] MEDS ORDERED: DILTIAZEM 50 MG/10 ML VIAL IV ONE (09:36)
[2017-06-16] MEDS: DILTIAZEM INJ 100 MG in SODIUM CHLORIDE 0.9% 100 ML IV SCH ×2 (10:21→23:45)
[2017-06-16] MEDS ORDERED: FUROSEMIDE 40 MG/4 ML VIAL IV ONE (10:30)
[2017-06-16] MEDS ORDERED: FUROSEMIDE 40 MG/4 ML VIAL ONE (10:32)
[2017-06-16 10:54] LABS: Troponin I Only < 0.015 NG/ML (0.00-0.045)
[2017-06-16 11:37] LABS: Luteinizing Hormone 2.7 MIU/ML
[2017-06-16 11:40] LABS: Allen Test Positive; Pt O2 Delivery Device Venturi Mask
[2017-06-16 11:41] LABS: ABG Base Excess 10.5 MMOL/L (-2.5-2.5); ABG HCO3 35.4 MMOL/L (20-26); ABG Oxygen Saturation 98.8 % (95-100); ABG PCO2 47.8 MM HG (35-48); ABG PH 7.488 (7.35-7.45); ABG PO2 153.3 MM HG (80-95); ABG TCO2 36.9 MMOL/L (23-27)
[2017-06-16] MEDS: ENOXAPARIN 40 MG/0.4 ML SYRINGE SUBCUT SCH (14:01)
[2017-06-16] MEDS: INSULIN REGULAR 100 UNIT/ML SUBCUT SCH ×3 (14:01→21:53)
[2017-06-16 15:47] LABS: Collection Time,Urine 24 HOURS; Total Volume,Urine 2250 ML (400-2000)
[2017-06-16 16:04] LABS: Total Protein 24 Hr Ur Result 225 MG/24HR (0-149.1)
[2017-06-16 16:12] LABS: Creatinine 24 Hr Urine Result 1.03 G/24HR (0.95-2.49)
[2017-06-16] MEDS: TAMSULOSIN 0.4 MG CAPSULE PO SCH (21:46)
[2017-06-17] MEDS: ALBUTEROL/IPRATROPIUM 3 ML NEB RESP TX SCH ×4 (00:17→21:08)
[2017-06-17 04:34] LABS: Basophils # 0.1 10*3/uL (0.0-0.2); Basophils % 0.4 % (0.0-0.8); Eosinophils % 0.2 % (0.00-10.9); Hematocrit 37.6 VOL% (42.0-52.0); Hemoglobin 12.8 GM/DL (14.0-18.0); Immature Granulocytes % 5.3 %; Immature Granulocytes Absolute 1.08 #; Lymphocytes # 2.1 10*3/uL (1.4-4.0); Lymphocytes % 10.2 % (21.2-54.2); Mean Corpuscular Hemoglobin 31 PG (27-34); Mean Platelet Volume 9.8 FL (9.6-12.0); Monocytes # 1.3 10*3/uL (0.11-0.8); Monocytes % 6.2 % (1.7-12.7); Neutrophils # 15.9 10*3/uL (1.4-7.4); Neutrophils % 77.7 % (38.7-73.9); Platelet Count 272 T/CUMM (130-400); Red Blood Count 4.13 MC/CUMM (3.8-5.5); Red Cell Distribution Width 13.9 % (9.3-17.3); White Blood Count 20.5 T/CUMM (4-12)
[2017-06-17 04:50] LABS: Calcium 8.8 MG/DL (8.5-10.1); Osmolality,Calculated 275.1 MOS/KG (273-304); Potassium 3.4 MMOL/L (3.5-5.1)
[2017-06-17 05:04] LABS: Band Neutrophils 1 % (0-10); Giant Platelets Few; Hypochromasia 1+; Lymphocytes 10 % (20-55); Macrocytosis Slight; Platelet Estimate Adequate; Segmented Neutrophils 87 % (50-85); Total Cells Counted 100
[2017-06-17] MEDS: LEVOFLOXACIN INJ 750 MG in PREMIX 1 EACH IV SCH (06:20)
[2017-06-17] MEDS: POTASSIUM CHLORIDE 20 MEQ TABLET PO PRN ×2 (06:20→09:39)
[2017-06-17 07:26] LABS: Total Protein (Chem) 5.7 G/DL (6.4-8.3)
[2017-06-17 07:27] LABS: 24 Hr Protein (Bench) 225 MG/24HR (0-149.1)
[2017-06-17] MEDS ORDERED: THEOPHYLLINE ER (24 HR) 400 MG CAPSULE PO SCH (09:00)
[2017-06-17] MEDS: metOLazone 2.5 MG TABLET PO SCH (09:38)
[2017-06-17] MEDS: CALCITRIOL 0.5 MCG CAPSULE PO SCH (09:38)
[2017-06-17] MEDS: CLORAZEPATE 7.5 MG TABLET PO SCH ×3 (09:38→21:21)
[2017-06-17] MEDS: glipiZIDE 5 MG TABLET PO SCH ×2 (09:38→16:12)
[2017-06-17] MEDS: miSOPROStol 200 MCG TABLET PO SCH ×2 (09:38→21:21)
[2017-06-17] MEDS: PANTOPRAZOLE 40 MG TABLET PO SCH (09:38)
[2017-06-17] MEDS: POLYETHYLENE GLYCOL POWDER 17 GM PACK PO SCH ×2 (09:38→21:28)
[2017-06-17] MEDS: LACTULOSE 20 GM/30 ML UDCUP PO SCH ×3 (09:38→21:20)
[2017-06-17] MEDS: POTASSIUM CHLORIDE 20 MEQ TABLET PO SCH ×3 (09:39→21:21)
[2017-06-17] MEDS: MAGNESIUM OXIDE 400 MG TABLET PO SCH ×2 (09:39→21:21)
[2017-06-17] MEDS: CYCLOBENZAPRINE 10 MG TABLET PO SCH ×3 (09:39→21:21)
[2017-06-17] MEDS: predniSONE 20 MG TABLET PO SCH (09:39)
[2017-06-17] MEDS: DOCUSATE SODIUM 100 MG CAPSULE PO SCH ×2 (09:39→21:21)
[2017-06-17] MEDS: MONTELUKAST 10 MG TABLET PO SCH (09:43)
[2017-06-17] MEDS: LIDOCAINE 5% PATCH TRANSDERM SCH (09:43)
[2017-06-17] MEDS: METOPROLOL TARTRATE 25 MG TABLET PO SCH ×2 (09:43→21:21)
[2017-06-17] MEDS: metFORMIN 500 MG TABLET PO SCH ×2 (09:43→16:12)
[2017-06-17] MEDS: FLUTICASONE/SALMETEROL 500-50 DISKUS 14 DOSE INH SCH ×2 (09:49→21:21)
[2017-06-17] MEDS: ASPIRIN EC 81 MG TABLET PO SCH (09:50)
[2017-06-17] MEDS: INSULIN REGULAR 100 UNIT/ML SUBCUT SCH ×4 (09:50→21:29)
[2017-06-17 11:21] LABS: Albumin (SPE) 3.7 G/DL (3.2-5.3); Alpha 1 (SPE) 0.2 G/DL (0.1-0.4); Alpha 1 (SPE) Rel % 3.2 %; Alpha 2 (SPE) 0.8 G/DL (0.4-1.0); Alpha 2 (SPE) Rel % 14.4 %; Beta (SPE) 0.7 G/DL (0.5-1.1); Gamma (SPE) 0.3 G/DL (0.7-1.7); Gamma (SPE) Rel % 5.4 %
[2017-06-17] MEDS: DILTIAZEM INJ 100 MG in SODIUM CHLORIDE 0.9% 100 ML IV SCH (11:38)
[2017-06-17] MEDS: ENOXAPARIN 40 MG/0.4 ML SYRINGE SUBCUT SCH (15:22)
[2017-06-17] MEDS: NYSTATIN 500,000 UNIT/5 ML UDCUP SWISH/SWAL SCH ×3 (15:22→21:20)
[2017-06-17] MEDS: FLUCONAZOLE 200 MG TABLET PO SCH (15:22)
[2017-06-17] MEDS: ALBUTEROL 0.4 MG/ML 30 ML/BOTTLE PO SCH ×3 (16:11→22:41)
[2017-06-17] MEDS: TAMSULOSIN 0.4 MG CAPSULE PO SCH (21:21)
[2017-06-18] MEDS: ALBUTEROL/IPRATROPIUM 3 ML NEB RESP TX SCH ×4 (01:45→19:14)
[2017-06-18 05:50] LABS: Basophils % 0.2 % (0.0-0.8); Hematocrit 38.8 VOL% (42.0-52.0); Hemoglobin 12.9 GM/DL (14.0-18.0); Immature Granulocytes % 7.2 %; Immature Granulocytes Absolute 1.29 #; Lymphocytes # 1.2 10*3/uL (1.4-4.0); Lymphocytes % 6.6 % (21.2-54.2); Mean Corpuscular HGB Conc 33.2 GM/DL (32-36); Mean Corpuscular Hemoglobin 32 PG (27-34); Mean Corpuscular Volume 94.9 FL (87-102); Monocytes # 0.8 10*3/uL (0.11-0.8); Monocytes % 4.3 % (1.7-12.7); Neutrophils # 14.6 10*3/uL (1.4-7.4); Neutrophils % 81.7 % (38.7-73.9); Platelet Count 270 T/CUMM (130-400); Red Blood Count 4.09 MC/CUMM (3.8-5.5); Red Cell Distribution Width 14.1 % (9.3-17.3); White Blood Count 17.9 T/CUMM (4-12)
[2017-06-18 06:09] LABS: Calcium 9.5 MG/DL (8.5-10.1); Osmolality,Calculated 277.1 MOS/KG (273-304); Potassium 4.2 MMOL/L (3.5-5.1)
[2017-06-18] MEDS: ALBUTEROL 0.4 MG/ML 30 ML/BOTTLE PO SCH ×2 (06:10→15:43)
[2017-06-18 06:16] LABS: Hypochromasia 1+; Lymphocytes 11 % (20-55); Platelet Estimate Adequate; Segmented Neutrophils 84 % (50-85); Total Cells Counted 100
[2017-06-18] MEDS: metFORMIN 500 MG TABLET PO SCH ×2 (09:20→18:02)
[2017-06-18] MEDS: POTASSIUM CHLORIDE 20 MEQ TABLET PO SCH ×3 (09:20→21:20)
[2017-06-18] MEDS: miSOPROStol 200 MCG TABLET PO SCH ×2 (09:20→21:20)
[2017-06-18] MEDS: metOLazone 2.5 MG TABLET PO SCH (09:20)
[2017-06-18] MEDS: FLUCONAZOLE 200 MG TABLET PO SCH (09:20)
[2017-06-18] MEDS: DOCUSATE SODIUM 100 MG CAPSULE PO SCH ×2 (09:20→21:21)
[2017-06-18] MEDS: MAGNESIUM OXIDE 400 MG TABLET PO SCH ×2 (09:20→21:21)
[2017-06-18] MEDS: glipiZIDE 5 MG TABLET PO SCH ×2 (09:20→15:43)
[2017-06-18] MEDS: CLORAZEPATE 7.5 MG TABLET PO SCH ×3 (09:21→21:21)
[2017-06-18] MEDS: MONTELUKAST 10 MG TABLET PO SCH (09:21)
[2017-06-18] MEDS: NYSTATIN 500,000 UNIT/5 ML UDCUP SWISH/SWAL SCH ×4 (09:21→21:42)
[2017-06-18] MEDS: INSULIN REGULAR 100 UNIT/ML SUBCUT SCH ×4 (09:21→21:36)
[2017-06-18] MEDS: ASPIRIN EC 81 MG TABLET PO SCH (09:21)
[2017-06-18] MEDS: CALCITRIOL 0.5 MCG CAPSULE PO SCH (09:21)
[2017-06-18] MEDS: POLYETHYLENE GLYCOL POWDER 17 GM PACK PO SCH ×2 (09:21→21:25)
[2017-06-18] MEDS: predniSONE 20 MG TABLET PO SCH (09:21)
[2017-06-18] MEDS: METOPROLOL TARTRATE 25 MG TABLET PO SCH ×2 (09:21→21:37)
[2017-06-18] MEDS: LIDOCAINE 5% PATCH TRANSDERM SCH (09:24)
[2017-06-18] MEDS: CYCLOBENZAPRINE 10 MG TABLET PO SCH ×3 (09:26→21:21)
[2017-06-18] MEDS: PANTOPRAZOLE 40 MG TABLET PO SCH (09:39)
[2017-06-18] MEDS: FLUTICASONE/SALMETEROL 500-50 DISKUS 14 DOSE INH SCH ×2 (09:39→21:20)
[2017-06-18] MEDS: LACTULOSE 20 GM/30 ML UDCUP PO SCH ×3 (09:39→21:37)
[2017-06-18] MEDS: DILTIAZEM INJ 100 MG in SODIUM CHLORIDE 0.9% 100 ML IV SCH (15:42)
[2017-06-18] MEDS: ENOXAPARIN 40 MG/0.4 ML SYRINGE SUBCUT SCH (15:43)
[2017-06-18 16:22] LABS: ABG Base Excess 7.6 MMOL/L (-2.5-2.5); ABG HCO3 31.4 MMOL/L (20-26); ABG Oxygen Saturation 97.1 % (95-100); ABG PH 7.415 (7.35-7.45); ABG PO2 93.4 MM HG (80-95); ABG TCO2 29.6 MMOL/L (23-27); Allen Test Positive
[2017-06-18] MEDS ORDERED: THEOPHYLLINE ER (24 HR) 200 MG CAPSULE PO SCH (17:00)
[2017-06-18] MEDS ORDERED: AMINOPHYLLINE 250 MG in SODIUM CHLORIDE 0.9% 100 ML IV ONE (17:20)
[2017-06-18 18:01] LABS: Total Volume 2250 mL
[2017-06-18] MEDS: ENOXAPARIN 80 MG/0.8 ML SYRINGE SUBCUT SCH (18:02)
[2017-06-18] MEDS: methylPREDNISolone SOD SUC 125 MG/2 ML VIAL IV SCH (18:03)
[2017-06-18] MEDS ORDERED: THEOPHYLLINE ER 200 MG TABLET PO SCH (21:00)
[2017-06-18] MEDS ORDERED: THEOPHYLLINE ER (24 HR) 400 MG TABLET PO SCH (21:00)
[2017-06-18] MEDS: TAMSULOSIN 0.4 MG CAPSULE PO SCH (21:22)
[2017-06-18] MEDS ORDERED: AMINOPHYLLINE 500 MG in SODIUM CHLORIDE 0.9% 480 ML IV SCH (22:00)
[2017-06-19] MEDS: ALBUTEROL/IPRATROPIUM 3 ML NEB RESP TX SCH ×4 (00:17→20:23)
[2017-06-19] MEDS: ALBUTEROL 0.4 MG/ML 30 ML/BOTTLE PO SCH ×4 (00:20→21:22)
[2017-06-19] MEDS: methylPREDNISolone SOD SUC 125 MG/2 ML VIAL IV SCH ×3 (03:23→18:05)
[2017-06-19 05:05] LABS: Calcium 9.5 MG/DL (8.5-10.1); Osmolality,Calculated 278.2 MOS/KG (273-304); Potassium 4.4 MMOL/L (3.5-5.1)
[2017-06-19] MEDS: ENOXAPARIN 80 MG/0.8 ML SYRINGE SUBCUT SCH (06:30)
[2017-06-19] MEDS ORDERED: MAGNESIUM SULF RIDER 2 GM in PREMIX 1 EACH IV PRN (08:40)
[2017-06-19] MEDS ORDERED: MAGNESIUM SULF RIDER 4 GM in PREMIX 1 EACH IV PRN (08:40)
[2017-06-19] MEDS ORDERED: THEOPHYLLINE ER (24 HR) 400 MG TABLET PO SCH (09:00)
[2017-06-19] MEDS: POLYETHYLENE GLYCOL POWDER 17 GM PACK PO SCH ×2 (09:59→21:23)
[2017-06-19] MEDS: METOPROLOL TARTRATE 25 MG TABLET PO SCH ×2 (09:59→21:24)
[2017-06-19] MEDS: glipiZIDE 5 MG TABLET PO SCH ×2 (09:59→17:00)
[2017-06-19] MEDS: POTASSIUM CHLORIDE 20 MEQ TABLET PO SCH ×3 (10:00→21:23)
[2017-06-19] MEDS: PANTOPRAZOLE 40 MG TABLET PO SCH (10:00)
[2017-06-19] MEDS: FLUCONAZOLE 200 MG TABLET PO SCH (10:01)
[2017-06-19] MEDS: metFORMIN 500 MG TABLET PO SCH ×2 (10:01→17:01)
[2017-06-19] MEDS: DOCUSATE SODIUM 100 MG CAPSULE PO SCH ×2 (10:01→21:24)
[2017-06-19] MEDS: ASPIRIN EC 81 MG TABLET PO SCH (10:01)
[2017-06-19] MEDS: MAGNESIUM OXIDE 400 MG TABLET PO SCH ×2 (10:01→21:24)
[2017-06-19] MEDS: metOLazone 2.5 MG TABLET PO SCH (10:02)
[2017-06-19] MEDS: CYCLOBENZAPRINE 10 MG TABLET PO SCH ×3 (10:03→21:24)
[2017-06-19] MEDS: CLORAZEPATE 7.5 MG TABLET PO SCH ×3 (10:03→21:23)
[2017-06-19] MEDS: MONTELUKAST 10 MG TABLET PO SCH (10:03)
[2017-06-19] MEDS: CALCITRIOL 0.5 MCG CAPSULE PO SCH (10:03)
[2017-06-19] MEDS: miSOPROStol 200 MCG TABLET PO SCH ×2 (10:04→21:24)
[2017-06-19] MEDS: INSULIN REGULAR 100 UNIT/ML SUBCUT SCH ×4 (10:04→21:22)
[2017-06-19] MEDS: LACTULOSE 20 GM/30 ML UDCUP PO SCH ×3 (10:04→21:24)
[2017-06-19] MEDS: FLUTICASONE/SALMETEROL 500-50 DISKUS 14 DOSE INH SCH ×2 (10:04→21:22)
[2017-06-19] MEDS: LIDOCAINE 5% PATCH TRANSDERM SCH (10:06)
[2017-06-19] MEDS: NYSTATIN 500,000 UNIT/5 ML UDCUP SWISH/SWAL SCH ×4 (10:06→21:23)
[2017-06-19] MEDS ORDERED: TUBERCULIN SKIN TEST 0.1 ML SYRINGE INTRADERM ONE (11:30)
[2017-06-19] MEDS: THEOPHYLLINE ER 300 MG TABLET PO SCH ×2 (13:07→17:02)
[2017-06-19 14:51] LABS: Tissue Transglutaminase IgA Ab < 1.2 U/mL; Tissue Transglutaminase IgG Ab < 1.2 U/mL
[2017-06-19] MEDS: TAMSULOSIN 0.4 MG CAPSULE PO SCH (21:24)
[2017-06-20] MEDS: ALBUTEROL/IPRATROPIUM 3 ML NEB RESP TX SCH ×4 (01:02→19:35)
[2017-06-20] MEDS: methylPREDNISolone SOD SUC 125 MG/2 ML VIAL IV SCH ×3 (02:14→17:43)
[2017-06-20] MEDS: DILTIAZEM INJ 100 MG in SODIUM CHLORIDE 0.9% 100 ML IV SCH ×2 (02:15→09:23)
[2017-06-20] MEDS: ALBUTEROL 0.4 MG/ML 30 ML/BOTTLE PO SCH ×3 (06:14→21:22)
[2017-06-20] MEDS: miSOPROStol 200 MCG TABLET PO SCH ×2 (09:12→21:21)
[2017-06-20] MEDS: metOLazone 2.5 MG TABLET PO SCH (09:13)
[2017-06-20] MEDS: CYCLOBENZAPRINE 10 MG TABLET PO SCH ×3 (09:13→21:23)
[2017-06-20] MEDS: MONTELUKAST 10 MG TABLET PO SCH (09:13)
[2017-06-20] MEDS: PANTOPRAZOLE 40 MG TABLET PO SCH (09:13)
[2017-06-20] MEDS: CALCITRIOL 0.5 MCG CAPSULE PO SCH (09:13)
[2017-06-20] MEDS: MAGNESIUM OXIDE 400 MG TABLET PO SCH ×2 (09:13→21:23)
[2017-06-20] MEDS: THEOPHYLLINE ER 300 MG TABLET PO SCH ×2 (09:13→17:37)
[2017-06-20] MEDS: CLORAZEPATE 7.5 MG TABLET PO SCH ×3 (09:13→21:23)
[2017-06-20] MEDS: glipiZIDE 5 MG TABLET PO SCH ×2 (09:13→17:37)
[2017-06-20] MEDS: FLUCONAZOLE 200 MG TABLET PO SCH (09:13)
[2017-06-20] MEDS: POTASSIUM CHLORIDE 20 MEQ TABLET PO SCH ×3 (09:13→21:23)
[2017-06-20] MEDS: metFORMIN 500 MG TABLET PO SCH ×2 (09:13→17:37)
[2017-06-20] MEDS: METOPROLOL TARTRATE 25 MG TABLET PO SCH ×2 (09:13→21:23)
[2017-06-20] MEDS: ASPIRIN EC 81 MG TABLET PO SCH (09:13)
[2017-06-20] MEDS: NYSTATIN 500,000 UNIT/5 ML UDCUP SWISH/SWAL SCH ×4 (09:14→21:22)
[2017-06-20] MEDS: POLYETHYLENE GLYCOL POWDER 17 GM PACK PO SCH ×2 (09:14→21:22)
[2017-06-20] MEDS: ENOXAPARIN 40 MG/0.4 ML SYRINGE SUBCUT SCH (09:14)
[2017-06-20] MEDS: INSULIN REGULAR 100 UNIT/ML SUBCUT SCH ×4 (09:14→21:22)
[2017-06-20] MEDS: DOCUSATE SODIUM 100 MG CAPSULE PO SCH ×2 (09:18→21:23)
[2017-06-20] MEDS: FLUTICASONE/SALMETEROL 500-50 DISKUS 14 DOSE INH SCH ×2 (09:18→21:20)
[2017-06-20] MEDS: LACTULOSE 20 GM/30 ML UDCUP PO SCH ×3 (09:22→21:22)
[2017-06-20] MEDS: LIDOCAINE 5% PATCH TRANSDERM SCH (09:23)
[2017-06-20] MEDS ORDERED: FUROSEMIDE 40 MG/4 ML VIAL IV ONE (09:30)
[2017-06-20] MEDS: IBUPROFEN 400 MG TABLET PO PRN (21:21)
[2017-06-20] MEDS: TAMSULOSIN 0.4 MG CAPSULE PO SCH (21:23)
[2017-06-21] MEDS: ALBUTEROL/IPRATROPIUM 3 ML NEB RESP TX SCH ×3 (00:27→13:17)
[2017-06-21] MEDS: methylPREDNISolone SOD SUC 125 MG/2 ML VIAL IV SCH ×2 (01:26→10:19)
[2017-06-21 04:57] LABS: Basophils % 0.1 % (0.0-0.8); Hematocrit 37.9 VOL% (42.0-52.0); Hemoglobin 12.9 GM/DL (14.0-18.0); Immature Granulocytes % 10.6 %; Immature Granulocytes Absolute 2.27 #; Lymphocytes # 0.9 10*3/uL (1.4-4.0); Lymphocytes % 4.4 % (21.2-54.2); Mean Corpuscular Hemoglobin 31 PG (27-34); Monocytes # 1.1 10*3/uL (0.11-0.8); Monocytes % 4.9 % (1.7-12.7); NRBC # 0.05 10*3/uL; Neutrophils # 17.2 10*3/uL (1.4-7.4); Platelet Count 280 T/CUMM (130-400); Red Blood Count 4.12 MC/CUMM (3.8-5.5); Red Cell Distribution Width 14.1 % (9.3-17.3); White Blood Count 21.5 T/CUMM (4-12)
[2017-06-21 05:18] LABS: Band Neutrophils 1 % (0-10); Lymphocytes 3 % (20-55); Metamyelocytes 1 %; Myelocytes 1 %; Segmented Neutrophils 89 % (50-85); Total Cells Counted 100
[2017-06-21 05:19] LABS: Hypochromasia 1+; Microcytosis Slight
[2017-06-21 05:44] LABS: Calcium 9.4 MG/DL (8.5-10.1); Osmolality,Calculated 283.2 MOS/KG (273-304); Potassium 4.5 MMOL/L (3.5-5.1)
[2017-06-21] MEDS: ALBUTEROL 0.4 MG/ML 30 ML/BOTTLE PO SCH (06:03)
[2017-06-21] MEDS: ENOXAPARIN 40 MG/0.4 ML SYRINGE SUBCUT SCH (10:15)
[2017-06-21] MEDS: MONTELUKAST 10 MG TABLET PO SCH (10:15)
[2017-06-21] MEDS: THEOPHYLLINE ER 300 MG TABLET PO SCH (10:15)
[2017-06-21] MEDS: metOLazone 2.5 MG TABLET PO SCH (10:16)
[2017-06-21] MEDS: CLORAZEPATE 7.5 MG TABLET PO SCH (10:16)
[2017-06-21] MEDS: metFORMIN 500 MG TABLET PO SCH (10:16)
[2017-06-21] MEDS: glipiZIDE 5 MG TABLET PO SCH (10:16)
[2017-06-21] MEDS: PANTOPRAZOLE 40 MG TABLET PO SCH (10:17)
[2017-06-21] MEDS: METOPROLOL TARTRATE 25 MG TABLET PO SCH (10:17)
[2017-06-21] MEDS: POLYETHYLENE GLYCOL POWDER 17 GM PACK PO SCH (10:18)
[2017-06-21] MEDS: INSULIN REGULAR 100 UNIT/ML SUBCUT SCH ×2 (10:18→12:26)
[2017-06-21] MEDS: CYCLOBENZAPRINE 10 MG TABLET PO SCH (10:18)
[2017-06-21] MEDS: DOCUSATE SODIUM 100 MG CAPSULE PO SCH (10:18)
[2017-06-21] MEDS: ASPIRIN EC 81 MG TABLET PO SCH (10:18)
[2017-06-21] MEDS: MAGNESIUM OXIDE 400 MG TABLET PO SCH (10:18)
[2017-06-21] MEDS: NYSTATIN 500,000 UNIT/5 ML UDCUP SWISH/SWAL SCH (10:18)
[2017-06-21] MEDS: LIDOCAINE 5% PATCH TRANSDERM SCH (10:23)
[2017-06-21] MEDS: POTASSIUM CHLORIDE 20 MEQ TABLET PO SCH (10:24)
[2017-06-21] MEDS: miSOPROStol 200 MCG TABLET PO SCH (10:24)
[2017-06-21] MEDS: LACTULOSE 20 GM/30 ML UDCUP PO SCH (10:25)
[2017-06-21] MEDS: FLUCONAZOLE 200 MG TABLET PO SCH (10:25)
[2017-06-21 11:25] VITALS: BP 124/88
[2017-06-21] MEDS: CALCITRIOL 0.5 MCG CAPSULE PO SCH (12:27)
[2017-06-22] MEDS ORDERED: RISEDRONATE 35 MG TABLET PO SCH (07:30)
== END 2017-06-21 14:16 | disposition home health service (06) | DRG 982 ==
LOC: EDBD → EDUNIT# → N.ED 21:40 → N.EDINP 06-13 01:52 → N.5E 06-13 02:30 → N.ICU 06-16 09:49 → N.TELES 06-16 18:10
PROVIDERS: ADMIT Hospitalist; ATTEND Hospitalist

== ENCOUNTER 2017-07-01 12:16 | Inpatient (IN) ==
[2017-07-01] MEDS ORDERED: ALBUTEROL/IPRATROPIUM 3 ML NEB RESP TX STA (12:30)
[2017-07-01 12:51] LABS: Basophils # 0.1 10*3/uL (0.0-0.2); Basophils % 0.4 % (0.0-0.8); Eosinophils # 0.1 10*3/uL (0.0-0.87); Eosinophils % 0.5 % (0.00-10.9); Hemoglobin 14.8 GM/DL (14.0-18.0); Immature Granulocytes % 2.9 %; Immature Granulocytes Absolute 0.43 #; Lymphocytes # 1.7 10*3/uL (1.4-4.0); Lymphocytes % 11.7 % (21.2-54.2); Mean Corpuscular HGB Conc 34.4 GM/DL (32-36); Mean Corpuscular Hemoglobin 31 PG (27-34); Mean Corpuscular Volume 91.1 FL (87-102); Mean Platelet Volume 9.3 FL (9.6-12.0); Monocytes # 1.3 10*3/uL (0.11-0.8); Monocytes % 8.8 % (1.7-12.7); Neutrophils # 11.2 10*3/uL (1.4-7.4); Neutrophils % 75.7 % (38.7-73.9); Platelet Count 292 T/CUMM (130-400); Red Blood Count 4.72 MC/CUMM (3.8-5.5); Red Cell Distribution Width 13.7 % (9.3-17.3); White Blood Count 14.9 T/CUMM (4-12)
[2017-07-01 13:32] LABS: Albumin 3.3 G/DL (3.4-5.0); Bilirubin,Total 0.5 MG/DL (0.2-1.0); Calcium 8.5 MG/DL (8.5-10.1); Osmolality,Calculated 269.4 MOS/KG (273-304); Total Protein 6.3 G/DL (6.4-8.3)
[2017-07-01 13:36] LABS: Potassium 2.4 MMOL/L (3.5-5.1)
[2017-07-01] MEDS ORDERED: POTASSIUM CHLORIDE 20 MEQ TABLET PO STA (13:43)
[2017-07-01] MEDS ORDERED: POTASSIUM CHLORIDE 20 MEQ TABLET PO ONE (14:13)
[2017-07-01] MEDS ORDERED: ALBUTEROL 2.5 MG/3 ML NEB RESP TX PRN (14:46)
[2017-07-01] MEDS ORDERED: POTASSIUM CHLORIDE RIDER 10 MEQ in PREMIX 1 EACH IV PRN (14:52)
[2017-07-01] MEDS: glipiZIDE 5 MG TABLET PO SCH (16:23)
[2017-07-01] MEDS: IPRATROPIUM 500 MCG/2.5 ML NEB RESP TX SCH ×2 (16:23→20:36)
[2017-07-01] MEDS: CYCLOBENZAPRINE 10 MG TABLET PO SCH ×2 (16:24→20:46)
[2017-07-01] MEDS: THEOPHYLLINE ER 300 MG TABLET PO SCH (16:24)
[2017-07-01] MEDS: metFORMIN 500 MG TABLET PO SCH (16:24)
[2017-07-01] MEDS: CLORAZEPATE 7.5 MG TABLET PO SCH ×2 (16:24→20:56)
[2017-07-01] MEDS: LACTULOSE 20 GM/30 ML UDCUP PO SCH ×2 (16:24→20:47)
[2017-07-01] MEDS: ALBUTEROL 2.5 MG/3 ML NEB RESP TX SCH ×2 (16:24→20:36)
[2017-07-01] MEDS: methylPREDNISolone SOD SUC 125 MG/2 ML VIAL IV SCH ×2 (16:25→22:21)
[2017-07-01] MEDS: ALBUTEROL/IPRATROPIUM 3 ML NEB RESP TX SCH ×2 (16:25→19:46)
[2017-07-01] MEDS: MEROPENEM 1,000 MG in SYRINGE 1 EACH IV SCH (20:45)
[2017-07-01] MEDS: miSOPROStol 200 MCG TABLET PO SCH (20:46)
[2017-07-01] MEDS: MAGNESIUM OXIDE 400 MG TABLET PO SCH (20:46)
[2017-07-01] MEDS: METOPROLOL TARTRATE 25 MG TABLET PO SCH (20:46)
[2017-07-01] MEDS: POTASSIUM CHLORIDE 10 MEQ TABLET PO SCH (20:46)
[2017-07-01] MEDS: DOCUSATE SODIUM 100 MG CAPSULE PO SCH (20:46)
[2017-07-01] MEDS: POLYETHYLENE GLYCOL POWDER 17 GM PACK PO SCH (20:47)
[2017-07-01] MEDS: FLUTICASONE/SALMETEROL 500-50 DISKUS 14 DOSE INH SCH (20:56)
[2017-07-01] MEDS ORDERED: METOPROLOL TARTRATE 25 MG TABLET PO SCH (21:00)
[2017-07-01] MEDS: ALBUTEROL 0.4 MG/ML 30 ML/BOTTLE PO SCH (22:21)
[2017-07-02 04:58] LABS: Calcium 8.5 MG/DL (8.5-10.1); Osmolality,Calculated 272.7 MOS/KG (273-304); Potassium 3.3 MMOL/L (3.5-5.1)
[2017-07-02] MEDS: methylPREDNISolone SOD SUC 125 MG/2 ML VIAL IV SCH ×4 (05:05→21:26)
[2017-07-02] MEDS: MEROPENEM 1,000 MG in SYRINGE 1 EACH IV SCH ×3 (05:05→21:26)
[2017-07-02 05:07] LABS: Free T4 (Free Thyroxine) 1.63 NG/DL (0.76-1.46); Thyroid Stimulating Hormone 0.291 uIU/ml (0.358-3.74)
[2017-07-02] MEDS ORDERED: predniSONE 10 MG TABLET PO SCH (06:00)
[2017-07-02] MEDS: ALBUTEROL 0.4 MG/ML 30 ML/BOTTLE PO SCH ×3 (06:18→21:27)
[2017-07-02] MEDS: IPRATROPIUM 500 MCG/2.5 ML NEB RESP TX SCH ×8 (07:15→19:29)
[2017-07-02] MEDS: ALBUTEROL 2.5 MG/3 ML NEB RESP TX SCH ×4 (07:15→19:29)
[2017-07-02] MEDS: ALBUTEROL/IPRATROPIUM 3 ML NEB RESP TX SCH ×4 (07:15→19:29)
[2017-07-02] MEDS: POTASSIUM CHLORIDE 20 MEQ TABLET PO PRN ×3 (07:31→12:03)
[2017-07-02] MEDS: LACTULOSE 20 GM/30 ML UDCUP PO SCH ×3 (08:50→20:54)
[2017-07-02] MEDS: CALCITRIOL 0.5 MCG CAPSULE PO SCH (08:50)
[2017-07-02] MEDS: CLORAZEPATE 7.5 MG TABLET PO SCH ×3 (08:50→20:54)
[2017-07-02] MEDS: POLYETHYLENE GLYCOL POWDER 17 GM PACK PO SCH ×2 (08:50→20:53)
[2017-07-02] MEDS: LIDOCAINE 5% PATCH TRANSDERM SCH (08:50)
[2017-07-02] MEDS: miSOPROStol 200 MCG TABLET PO SCH ×2 (08:51→20:54)
[2017-07-02] MEDS: ACETAMINOPHEN 325 MG TABLET PO SCH (08:51)
[2017-07-02] MEDS: CYCLOBENZAPRINE 10 MG TABLET PO SCH ×3 (08:51→20:54)
[2017-07-02] MEDS: DOCUSATE SODIUM 100 MG CAPSULE PO SCH ×2 (08:52→20:54)
[2017-07-02] MEDS: TAMSULOSIN 0.4 MG CAPSULE PO SCH (08:52)
[2017-07-02] MEDS: metOLazone 2.5 MG TABLET PO SCH (08:52)
[2017-07-02] MEDS: MAGNESIUM OXIDE 400 MG TABLET PO SCH ×2 (08:52→20:53)
[2017-07-02] MEDS: THEOPHYLLINE ER 300 MG TABLET PO SCH ×2 (08:52→16:53)
[2017-07-02] MEDS: MONTELUKAST 10 MG TABLET PO SCH (08:52)
[2017-07-02] MEDS: METOPROLOL TARTRATE 25 MG TABLET PO SCH ×2 (08:52→20:54)
[2017-07-02] MEDS: ASPIRIN EC 81 MG TABLET PO SCH (08:53)
[2017-07-02] MEDS: FLUTICASONE/SALMETEROL 500-50 DISKUS 14 DOSE INH SCH ×2 (08:53→20:54)
[2017-07-02] MEDS: glipiZIDE 5 MG TABLET PO SCH ×2 (08:53→16:53)
[2017-07-02] MEDS: POTASSIUM CHLORIDE 10 MEQ TABLET PO SCH ×2 (08:54→20:54)
[2017-07-02] MEDS: metFORMIN 500 MG TABLET PO SCH ×2 (08:56→16:53)
[2017-07-02] MEDS: PANTOPRAZOLE 40 MG TABLET PO SCH (08:56)
[2017-07-02] MEDS: SPIRONOLACTONE 25 MG TABLET PO SCH (10:50)
[2017-07-03] MEDS: methylPREDNISolone SOD SUC 125 MG/2 ML VIAL IV SCH ×4 (04:55→22:26)
[2017-07-03] MEDS: MEROPENEM 1,000 MG in SYRINGE 1 EACH IV SCH ×3 (04:55→22:17)
[2017-07-03] MEDS: ALBUTEROL 0.4 MG/ML 30 ML/BOTTLE PO SCH ×3 (05:00→22:22)
[2017-07-03 05:11] LABS: Calcium 9.1 MG/DL (8.5-10.1); Osmolality,Calculated 278.7 MOS/KG (273-304); Potassium 3.8 MMOL/L (3.5-5.1)
[2017-07-03] MEDS: IPRATROPIUM 500 MCG/2.5 ML NEB RESP TX SCH ×4 (07:13→16:35)
[2017-07-03] MEDS: ALBUTEROL 2.5 MG/3 ML NEB RESP TX SCH ×2 (07:14→16:34)
[2017-07-03] MEDS: ALBUTEROL/IPRATROPIUM 3 ML NEB RESP TX SCH ×4 (07:19→19:17)
[2017-07-03] MEDS: THEOPHYLLINE ER 300 MG TABLET PO SCH ×2 (08:53→16:46)
[2017-07-03] MEDS: MONTELUKAST 10 MG TABLET PO SCH (08:53)
[2017-07-03] MEDS: metFORMIN 500 MG TABLET PO SCH ×2 (08:53→16:46)
[2017-07-03] MEDS: CLORAZEPATE 7.5 MG TABLET PO SCH ×3 (08:53→22:18)
[2017-07-03] MEDS: SPIRONOLACTONE 25 MG TABLET PO SCH (08:53)
[2017-07-03] MEDS: MAGNESIUM OXIDE 400 MG TABLET PO SCH ×2 (08:53→22:17)
[2017-07-03] MEDS: TAMSULOSIN 0.4 MG CAPSULE PO SCH (08:53)
[2017-07-03] MEDS: metOLazone 2.5 MG TABLET PO SCH (08:53)
[2017-07-03] MEDS: PANTOPRAZOLE 40 MG TABLET PO SCH (08:53)
[2017-07-03] MEDS: CYCLOBENZAPRINE 10 MG TABLET PO SCH ×3 (08:54→22:18)
[2017-07-03] MEDS: METOPROLOL TARTRATE 25 MG TABLET PO SCH ×2 (08:54→22:18)
[2017-07-03] MEDS: CALCITRIOL 0.5 MCG CAPSULE PO SCH (08:54)
[2017-07-03] MEDS: glipiZIDE 5 MG TABLET PO SCH ×2 (08:54→16:46)
[2017-07-03] MEDS: miSOPROStol 200 MCG TABLET PO SCH ×2 (08:54→22:18)
[2017-07-03] MEDS: ASPIRIN EC 81 MG TABLET PO SCH (08:54)
[2017-07-03] MEDS: POLYETHYLENE GLYCOL POWDER 17 GM PACK PO SCH ×2 (08:55→22:21)
[2017-07-03] MEDS: LIDOCAINE 5% PATCH TRANSDERM SCH (08:55)
[2017-07-03] MEDS: FLUTICASONE/SALMETEROL 500-50 DISKUS 14 DOSE INH SCH ×2 (08:56→22:21)
[2017-07-03] MEDS: DOCUSATE SODIUM 100 MG CAPSULE PO SCH ×2 (08:57→22:21)
[2017-07-03] MEDS: LACTULOSE 20 GM/30 ML UDCUP PO SCH ×3 (08:57→22:21)
[2017-07-03] MEDS: ACETAMINOPHEN 325 MG TABLET PO SCH (08:59)
[2017-07-03] MEDS: POTASSIUM CHLORIDE 10 MEQ TABLET PO SCH ×2 (08:59→22:18)
[2017-07-03] MEDS ORDERED: GLUCAGON 1 MG VIAL IM PRN (12:23)
[2017-07-03] MEDS ORDERED: DEXTROSE 50% 25 GM/50 ML VIAL IV PRN (12:23)
[2017-07-03] MEDS: INSULIN REGULAR 100 UNIT/ML SUBCUT SCH ×2 (16:47→22:20)
[2017-07-04] MEDS: methylPREDNISolone SOD SUC 125 MG/2 ML VIAL IV SCH ×4 (04:32→22:14)
[2017-07-04] MEDS: MEROPENEM 1,000 MG in SYRINGE 1 EACH IV SCH ×3 (04:34→22:09)
[2017-07-04 06:03] LABS: Calcium 9.7 MG/DL (8.5-10.1); Osmolality,Calculated 275.1 MOS/KG (273-304)
[2017-07-04] MEDS: ALBUTEROL 0.4 MG/ML 30 ML/BOTTLE PO SCH ×3 (06:40→22:14)
[2017-07-04] MEDS: ALBUTEROL/IPRATROPIUM 3 ML NEB RESP TX SCH ×4 (07:29→20:41)
[2017-07-04] MEDS: THEOPHYLLINE ER 300 MG TABLET PO SCH (09:26)
[2017-07-04] MEDS: LIDOCAINE 5% PATCH TRANSDERM SCH (09:29)
[2017-07-04] MEDS: POLYETHYLENE GLYCOL POWDER 17 GM PACK PO SCH ×2 (09:31→22:14)
[2017-07-04] MEDS: MONTELUKAST 10 MG TABLET PO SCH (09:32)
[2017-07-04] MEDS: ASPIRIN EC 81 MG TABLET PO SCH (09:32)
[2017-07-04] MEDS: ACETAMINOPHEN 325 MG TABLET PO SCH (09:32)
[2017-07-04] MEDS: CALCITRIOL 0.5 MCG CAPSULE PO SCH (09:33)
[2017-07-04] MEDS: glipiZIDE 5 MG TABLET PO SCH ×2 (09:33→16:20)
[2017-07-04] MEDS: POTASSIUM CHLORIDE 20 MEQ TABLET PO PRN (09:33)
[2017-07-04] MEDS: CYCLOBENZAPRINE 10 MG TABLET PO SCH ×3 (09:33→22:10)
[2017-07-04] MEDS: SPIRONOLACTONE 25 MG TABLET PO SCH (09:34)
[2017-07-04] MEDS: metFORMIN 500 MG TABLET PO SCH ×2 (09:34→16:20)
[2017-07-04] MEDS: MAGNESIUM OXIDE 400 MG TABLET PO SCH ×2 (09:34→22:10)
[2017-07-04] MEDS: metOLazone 2.5 MG TABLET PO SCH (09:34)
[2017-07-04] MEDS: CLORAZEPATE 7.5 MG TABLET PO SCH ×3 (09:34→22:10)
[2017-07-04] MEDS: TAMSULOSIN 0.4 MG CAPSULE PO SCH (09:34)
[2017-07-04] MEDS: METOPROLOL TARTRATE 25 MG TABLET PO SCH ×2 (09:35→22:10)
[2017-07-04] MEDS: miSOPROStol 200 MCG TABLET PO SCH ×2 (09:35→22:10)
[2017-07-04] MEDS: PANTOPRAZOLE 40 MG TABLET PO SCH (09:35)
[2017-07-04] MEDS: POTASSIUM CHLORIDE 10 MEQ TABLET PO SCH ×2 (09:36→22:10)
[2017-07-04] MEDS: DOCUSATE SODIUM 100 MG CAPSULE PO SCH ×2 (09:36→22:10)
[2017-07-04] MEDS: LACTULOSE 20 GM/30 ML UDCUP PO SCH ×3 (09:36→22:14)
[2017-07-04] MEDS: FLUTICASONE/SALMETEROL 500-50 DISKUS 14 DOSE INH SCH ×2 (09:37→22:09)
[2017-07-04] MEDS: INSULIN REGULAR 100 UNIT/ML SUBCUT SCH ×4 (09:45→22:14)
[2017-07-04] MEDS: methIMAzole 10 MG TABLET PO SCH (12:03)
[2017-07-05] MEDS: methylPREDNISolone SOD SUC 125 MG/2 ML VIAL IV SCH ×2 (04:28→09:25)
[2017-07-05] MEDS: MEROPENEM 1,000 MG in SYRINGE 1 EACH IV SCH ×2 (04:30→13:21)
[2017-07-05 05:45] LABS: Potassium 4.1 MMOL/L (3.5-5.1)
[2017-07-05] MEDS: ALBUTEROL 0.4 MG/ML 30 ML/BOTTLE PO SCH (05:53)
[2017-07-05] MEDS: ALBUTEROL/IPRATROPIUM 3 ML NEB RESP TX SCH ×2 (08:18→11:09)
[2017-07-05] MEDS: LIDOCAINE 5% PATCH TRANSDERM SCH (09:24)
[2017-07-05] MEDS: POLYETHYLENE GLYCOL POWDER 17 GM PACK PO SCH (09:24)
[2017-07-05] MEDS: INSULIN REGULAR 100 UNIT/ML SUBCUT SCH ×2 (09:25→13:21)
[2017-07-05] MEDS: CALCITRIOL 0.5 MCG CAPSULE PO SCH (09:26)
[2017-07-05] MEDS: glipiZIDE 5 MG TABLET PO SCH (09:26)
[2017-07-05] MEDS: TAMSULOSIN 0.4 MG CAPSULE PO SCH (09:26)
[2017-07-05] MEDS: LACTULOSE 20 GM/30 ML UDCUP PO SCH (09:26)
[2017-07-05] MEDS: methIMAzole 10 MG TABLET PO SCH (09:26)
[2017-07-05] MEDS: METOPROLOL TARTRATE 25 MG TABLET PO SCH (09:26)
[2017-07-05] MEDS: CLORAZEPATE 7.5 MG TABLET PO SCH (09:28)
[2017-07-05] MEDS: ACETAMINOPHEN 325 MG TABLET PO SCH (09:28)
[2017-07-05] MEDS: CYCLOBENZAPRINE 10 MG TABLET PO SCH (09:29)
[2017-07-05] MEDS: MONTELUKAST 10 MG TABLET PO SCH (09:29)
[2017-07-05] MEDS: PANTOPRAZOLE 40 MG TABLET PO SCH (09:29)
[2017-07-05] MEDS: SPIRONOLACTONE 25 MG TABLET PO SCH (09:29)
[2017-07-05] MEDS: metOLazone 2.5 MG TABLET PO SCH (09:29)
[2017-07-05] MEDS: metFORMIN 500 MG TABLET PO SCH (09:30)
[2017-07-05] MEDS: MAGNESIUM OXIDE 400 MG TABLET PO SCH (09:30)
[2017-07-05] MEDS: FLUTICASONE/SALMETEROL 500-50 DISKUS 14 DOSE INH SCH (09:30)
[2017-07-05] MEDS: miSOPROStol 200 MCG TABLET PO SCH (09:30)
[2017-07-05] MEDS: POTASSIUM CHLORIDE 10 MEQ TABLET PO SCH (09:30)
[2017-07-05] MEDS: DOCUSATE SODIUM 100 MG CAPSULE PO SCH (09:30)
[2017-07-05] MEDS: ASPIRIN EC 81 MG TABLET PO SCH (09:30)
[2017-07-05 12:18] VITALS: BP 124/67
[2017-07-06] MEDS ORDERED: ERGOCALCIFEROL 50,000 UNIT CAPSULE PO SCH (09:00)
[2017-07-07] MEDS ORDERED: NON-FORMULARY MEDICATION (Alendronate Sodium [Alendronate Sodium] 35 MG) PO SCH (14:46)
== END 2017-07-05 14:44 | disposition home health service (06) | DRG 192 ==
LOC: N.ED 12:16 → N.EDINP 14:45 → SUATTDRO 14:45 → N.TELEN 15:22
PROVIDERS: ADMIT Internal Medicine; ATTEND Internal Medicine Geriatric Medicine

== ENCOUNTER 2017-07-08 12:48 | Inpatient (IN) ==
[2017-07-08] MEDS ORDERED: ALBUTEROL/IPRATROPIUM 3 ML NEB RESP TX PRN (16:04)
[2017-07-08 17:32] LABS: Basophils # 0.1 10*3/uL (0.0-0.2); Basophils % 0.7 % (0.0-0.8); Hematocrit 40.7 VOL% (42.0-52.0); Hemoglobin 14.5 GM/DL (14.0-18.0); Immature Granulocytes % 9.3 %; Immature Granulocytes Absolute 1.51 #; Lymphocytes # 0.6 10*3/uL (1.4-4.0); Lymphocytes % 3.8 % (21.2-54.2); Mean Corpuscular HGB Conc 35.6 GM/DL (32-36); Mean Corpuscular Hemoglobin 31 PG (27-34); Mean Corpuscular Volume 88.1 FL (87-102); Mean Platelet Volume 9.3 FL (9.6-12.0); Monocytes # 0.4 10*3/uL (0.11-0.8); Monocytes % 2.6 % (1.7-12.7); Neutrophils # 13.6 10*3/uL (1.4-7.4); Neutrophils % 83.6 % (38.7-73.9); Platelet Count 409 T/CUMM (130-400); Red Blood Count 4.62 MC/CUMM (3.8-5.5); Red Cell Distribution Width 13.3 % (9.3-17.3); White Blood Count 16.3 T/CUMM (4-12)
[2017-07-08 18:20] LABS: Albumin 3.2 G/DL (3.4-5.0); Bilirubin,Total 0.4 MG/DL (0.2-1.0); Calcium 9.6 MG/DL (8.5-10.1); Osmolality,Calculated 272.1 MOS/KG (273-304); Potassium 3.3 MMOL/L (3.5-5.1); Thyroid Stimulating Hormone 0.205 uIU/ml (0.358-3.74); Total Protein 6.5 G/DL (6.4-8.3)
[2017-07-08 19:24] LABS: Lymphocytes 9 % (20-55); Metamyelocytes 1 %; Platelet Estimate Normal; Segmented Neutrophils 88 % (50-85); Total Cells Counted 100
[2017-07-08] MEDS: ALBUTEROL/IPRATROPIUM 3 ML NEB RESP TX SCH (19:50)
[2017-07-08] MEDS ORDERED: LACTULOSE 20 GM/30 ML UDCUP PO PRN (21:01)
[2017-07-08] MEDS ORDERED: ALBUTEROL 0.4 MG/ML 30 ML/BOTTLE PO SCH (22:00)
[2017-07-08] MEDS: MEROPENEM 500 MG in SYRINGE 1 EACH IV SCH (23:33)
[2017-07-08] MEDS: SODIUM CHLOR 0.9% KCL 40 MEQ 40 MEQ/1,000 ML BAG IV SCH (23:33)
[2017-07-08] MEDS: CLORAZEPATE 7.5 MG TABLET PO PRN (23:33)
[2017-07-08] MEDS: CYCLOBENZAPRINE 10 MG TABLET PO PRN (23:33)
[2017-07-08] MEDS ORDERED: ONDANSETRON 4 MG/2 ML VIAL IV PRN (23:36)
[2017-07-09] MEDS ORDERED: ACETAMINOPHEN 325 MG TABLET ONE (05:01)
[2017-07-09] MEDS: MEROPENEM 500 MG in SYRINGE 1 EACH IV SCH ×3 (05:07→22:01)
[2017-07-09] MEDS: ACETAMINOPHEN 325 MG TABLET PO SCH ×2 (05:08→10:54)
[2017-07-09] MEDS: predniSONE 10 MG TABLET PO SCH ×2 (05:08→14:09)
[2017-07-09] MEDS: ALBUTEROL 0.4 MG/ML 30 ML/BOTTLE PO SCH ×3 (05:08→21:54)
[2017-07-09 05:54] LABS: Basophils # 0.1 10*3/uL (0.0-0.2); Basophils % 0.4 % (0.0-0.8); Eosinophils % 0.2 % (0.00-10.9); Hematocrit 37.8 VOL% (42.0-52.0); Hemoglobin 13.5 GM/DL (14.0-18.0); Immature Granulocytes % 7.2 %; Immature Granulocytes Absolute 1.37 #; Lymphocytes # 1.2 10*3/uL (1.4-4.0); Lymphocytes % 6.4 % (21.2-54.2); Mean Corpuscular HGB Conc 35.7 GM/DL (32-36); Mean Corpuscular Hemoglobin 32 PG (27-34); Mean Corpuscular Volume 89.2 FL (87-102); Mean Platelet Volume 9.1 FL (9.6-12.0); Monocytes # 1.4 10*3/uL (0.11-0.8); Monocytes % 7.4 % (1.7-12.7); Neutrophils % 78.4 % (38.7-73.9); Platelet Count 374 T/CUMM (130-400); Red Blood Count 4.24 MC/CUMM (3.8-5.5); Red Cell Distribution Width 13.4 % (9.3-17.3); White Blood Count 19.1 T/CUMM (4-12)
[2017-07-09 06:25] LABS: Band Neutrophils 4 % (0-10); Giant Platelets Few; Hypochromasia 1+; Lymphocytes 6 % (20-55); Platelet Estimate Adequate; Segmented Neutrophils 80 % (50-85); Total Cells Counted 100
[2017-07-09 06:47] LABS: Calcium 8.8 MG/DL (8.5-10.1); Free T4 (Free Thyroxine) 1.77 NG/DL (0.76-1.46); Osmolality,Calculated 265.9 MOS/KG (273-304); Potassium 3.1 MMOL/L (3.5-5.1)
[2017-07-09] MEDS: ALBUTEROL/IPRATROPIUM 3 ML NEB RESP TX SCH ×4 (07:15→19:24)
[2017-07-09] MEDS ORDERED: metFORMIN 500 MG TABLET PO SCH (08:00)
[2017-07-09] MEDS: FUROSEMIDE 20 MG TABLET PO SCH (10:50)
[2017-07-09] MEDS: miSOPROStol 200 MCG TABLET PO SCH ×2 (10:50→21:58)
[2017-07-09] MEDS: DOCUSATE SODIUM 100 MG CAPSULE PO SCH ×2 (10:50→21:55)
[2017-07-09] MEDS: glipiZIDE 5 MG TABLET PO SCH ×2 (10:50→17:03)
[2017-07-09] MEDS: MONTELUKAST 10 MG TABLET PO SCH (10:50)
[2017-07-09] MEDS: PANTOPRAZOLE 40 MG TABLET PO SCH (10:51)
[2017-07-09] MEDS: metOLazone 2.5 MG TABLET PO SCH (10:51)
[2017-07-09] MEDS: MAGNESIUM OXIDE 400 MG TABLET PO SCH ×2 (10:51→21:55)
[2017-07-09] MEDS: POTASSIUM CHLORIDE 10 MEQ TABLET PO SCH ×2 (10:51→21:55)
[2017-07-09] MEDS: CALCITRIOL 0.5 MCG CAPSULE PO SCH (10:51)
[2017-07-09] MEDS: methIMAzole 10 MG TABLET PO SCH (10:51)
[2017-07-09] MEDS: SPIRONOLACTONE 25 MG TABLET PO SCH (10:52)
[2017-07-09] MEDS: ASPIRIN EC 81 MG TABLET PO SCH (10:52)
[2017-07-09] MEDS: METOPROLOL TARTRATE 25 MG TABLET PO SCH ×2 (10:52→21:55)
[2017-07-09] MEDS: LIDOCAINE 5% PATCH TRANSDERM SCH (10:53)
[2017-07-09] MEDS: POLYETHYLENE GLYCOL POWDER 17 GM PACK PO SCH ×2 (10:53→21:56)
[2017-07-09] MEDS ORDERED: MAGNESIUM SULF RIDER 2 GM in PREMIX 1 EACH IV PRN (13:24)
[2017-07-09] MEDS ORDERED: POTASSIUM CHLORIDE RIDER 10 MEQ in PREMIX 1 EACH IV PRN (13:24)
[2017-07-09 14:07] LABS: Troponin I Only < 0.015 NG/ML (0.00-0.045)
[2017-07-09] MEDS: FLUTICASONE/SALMETEROL 500-50 DISKUS 14 DOSE INH SCH ×2 (14:09→21:54)
[2017-07-09] MEDS: SODIUM CHLOR 0.9% KCL 40 MEQ 40 MEQ/1,000 ML BAG IV SCH (14:13)
[2017-07-09 14:35] LABS: INR 1.1; PT Patient Result 11.4 SECS
[2017-07-09] MEDS: INSULIN REGULAR 100 UNIT/ML SUBCUT SCH ×2 (17:03→21:54)
[2017-07-09 17:23] LABS: Troponin I Only < 0.015 NG/ML (0.00-0.045)
[2017-07-09 18:56] LABS: Troponin I Only 0.015 NG/ML (0.00-0.045)
[2017-07-09] MEDS: CYCLOBENZAPRINE 10 MG TABLET PO PRN (21:55)
[2017-07-09] MEDS: TAMSULOSIN 0.4 MG CAPSULE PO SCH (21:55)
[2017-07-09] MEDS: CLORAZEPATE 7.5 MG TABLET PO PRN (21:55)
[2017-07-10] MEDS: SODIUM CHLOR 0.9% KCL 40 MEQ 40 MEQ/1,000 ML BAG IV SCH ×2 (04:05→23:36)
[2017-07-10 05:02] LABS: Basophils # 0.1 10*3/uL (0.0-0.2); Basophils % 0.6 % (0.0-0.8); Eosinophils # 0.1 10*3/uL (0.0-0.87); Eosinophils % 0.5 % (0.00-10.9); Hematocrit 33.7 VOL% (42.0-52.0); Hemoglobin 11.5 GM/DL (14.0-18.0); Immature Granulocytes % 9.5 %; Immature Granulocytes Absolute 1.51 #; Lymphocytes # 1.9 10*3/uL (1.4-4.0); Lymphocytes % 11.8 % (21.2-54.2); Mean Corpuscular HGB Conc 34.1 GM/DL (32-36); Mean Corpuscular Hemoglobin 31 PG (27-34); Mean Corpuscular Volume 91.6 FL (87-102); Mean Platelet Volume 9.4 FL (9.6-12.0); Monocytes # 1.5 10*3/uL (0.11-0.8); Monocytes % 9.3 % (1.7-12.7); Neutrophils # 10.9 10*3/uL (1.4-7.4); Neutrophils % 68.3 % (38.7-73.9); Platelet Count 337 T/CUMM (130-400); Red Blood Count 3.68 MC/CUMM (3.8-5.5); Red Cell Distribution Width 13.6 % (9.3-17.3)
[2017-07-10 05:34] LABS: Calcium 8.1 MG/DL (8.5-10.1); Potassium 3.4 MMOL/L (3.5-5.1)
[2017-07-10 05:42] LABS: Band Neutrophils 4 % (0-10); Eosinophils 1 % (0-10); Lymphocytes 8 % (20-55); Segmented Neutrophils 84 % (50-85); Total Cells Counted 100
[2017-07-10 05:43] LABS: Hypochromasia 1+; Microcytosis 1+
[2017-07-10 05:44] LABS: Platelet Estimate Normal
[2017-07-10 05:50] LABS: Risk Ratio 2.43; VLDL CHOLESTEROL 17.4 MG/DL
[2017-07-10] MEDS: MEROPENEM 500 MG in SYRINGE 1 EACH IV SCH ×3 (06:10→21:52)
[2017-07-10] MEDS: ALBUTEROL 0.4 MG/ML 30 ML/BOTTLE PO SCH ×3 (06:10→21:52)
[2017-07-10] MEDS: predniSONE 10 MG TABLET PO SCH ×2 (06:10→14:44)
[2017-07-10] MEDS: ALBUTEROL/IPRATROPIUM 3 ML NEB RESP TX SCH ×4 (06:55→18:57)
[2017-07-10] MEDS ORDERED: diphenhydrAMINE CAP 25 MG CAPSULE PO ONE ×2 (07:30)
[2017-07-10] MEDS ORDERED: DIAZEPAM 5 MG TABLET PO ONE ×2 (07:30)
[2017-07-10] MEDS: INSULIN REGULAR 100 UNIT/ML SUBCUT SCH ×4 (07:50→20:49)
[2017-07-10] MEDS: ASPIRIN EC 81 MG TABLET PO SCH ×2 (07:56→10:10)
[2017-07-10] MEDS: METOPROLOL TARTRATE 25 MG TABLET PO SCH ×3 (07:57→21:53)
[2017-07-10] MEDS ORDERED: MIDAZOLAM 2 MG/2 ML VIAL ONE (08:16)
[2017-07-10] MEDS ORDERED: HYDROmorphone 2 MG/1 ML VIAL ONE (08:16)
[2017-07-10] MEDS ORDERED: NITROGLYCERIN DRIP 50 MG/250 ML BOTTLE IV ONE (08:22)
[2017-07-10] MEDS ORDERED: VERAPAMIL 5 MG/2 ML VIAL ONE (08:22)
[2017-07-10] MEDS ORDERED: POTASSIUM CHLORIDE 20 MEQ TABLET PO ONE (08:24)
[2017-07-10] MEDS ORDERED: ENOXAPARIN 60 MG/0.6 ML SYRINGE ONE (08:27)
[2017-07-10] MEDS: glipiZIDE 5 MG TABLET PO SCH ×2 (10:05→18:58)
[2017-07-10] MEDS: metOLazone 2.5 MG TABLET PO SCH (10:06)
[2017-07-10] MEDS: methIMAzole 10 MG TABLET PO SCH (10:07)
[2017-07-10] MEDS: CALCITRIOL 0.5 MCG CAPSULE PO SCH (10:07)
[2017-07-10] MEDS: MONTELUKAST 10 MG TABLET PO SCH (10:07)
[2017-07-10] MEDS: miSOPROStol 200 MCG TABLET PO SCH ×2 (10:07→21:53)
[2017-07-10] MEDS: SPIRONOLACTONE 25 MG TABLET PO SCH (10:08)
[2017-07-10] MEDS: PANTOPRAZOLE 40 MG TABLET PO SCH (10:08)
[2017-07-10] MEDS: FUROSEMIDE 20 MG TABLET PO SCH (10:08)
[2017-07-10] MEDS: POTASSIUM CHLORIDE 10 MEQ TABLET PO SCH ×2 (10:08→21:53)
[2017-07-10] MEDS: MAGNESIUM OXIDE 400 MG TABLET PO SCH ×2 (10:09→21:53)
[2017-07-10] MEDS: DOCUSATE SODIUM 100 MG CAPSULE PO SCH ×2 (10:09→21:53)
[2017-07-10] MEDS: FLUTICASONE/SALMETEROL 500-50 DISKUS 14 DOSE INH SCH ×2 (10:09→21:54)
[2017-07-10] MEDS: LIDOCAINE 5% PATCH TRANSDERM SCH (10:10)
[2017-07-10] MEDS: POLYETHYLENE GLYCOL POWDER 17 GM PACK PO SCH ×2 (10:11→21:52)
[2017-07-10] MEDS: ACETAMINOPHEN 325 MG TABLET PO SCH (14:43)
[2017-07-10] MEDS: THEOPHYLLINE ER (24 HR) 200 MG CAPSULE PO SCH (14:43)
[2017-07-10] MEDS: TAMSULOSIN 0.4 MG CAPSULE PO SCH (18:58)
[2017-07-10] MEDS: CLORAZEPATE 7.5 MG TABLET PO PRN (21:53)
[2017-07-10] MEDS: CYCLOBENZAPRINE 10 MG TABLET PO PRN (21:54)
[2017-07-11 04:55] LABS: Basophils % 0.1 % (0.0-0.8); Eosinophils # 0.1 10*3/uL (0.0-0.87); Eosinophils % 0.8 % (0.00-10.9); Hematocrit 36.2 VOL% (42.0-52.0); Immature Granulocytes % 16.1 %; Lymphocytes # 1.9 10*3/uL (1.4-4.0); Lymphocytes % 13.2 % (21.2-54.2); Mean Corpuscular HGB Conc 33.1 GM/DL (32-36); Mean Corpuscular Hemoglobin 31 PG (27-34); Mean Corpuscular Volume 92.6 FL (87-102); Mean Platelet Volume 9.3 FL (9.6-12.0); Monocytes # 1.4 10*3/uL (0.11-0.8); Monocytes % 9.7 % (1.7-12.7); Neutrophils # 8.6 10*3/uL (1.4-7.4); Neutrophils % 60.1 % (38.7-73.9); Platelet Count 312 T/CUMM (130-400); Red Blood Count 3.91 MC/CUMM (3.8-5.5); Red Cell Distribution Width 13.7 % (9.3-17.3); White Blood Count 14.3 T/CUMM (4-12)
[2017-07-11 05:21] LABS: Calcium 9.1 MG/DL (8.5-10.1); Osmolality,Calculated 272.2 MOS/KG (273-304); Potassium 3.9 MMOL/L (3.5-5.1)
[2017-07-11 05:27] LABS: Eosinophils 1 % (0-10); Lymphocytes 25 % (20-55); Segmented Neutrophils 65 % (50-85); Total Cells Counted 100
[2017-07-11 05:28] LABS: Hypochromasia 1+; Macrocytosis Slight
[2017-07-11 05:29] LABS: Platelet Estimate Adequate
[2017-07-11] MEDS: MEROPENEM 500 MG in SYRINGE 1 EACH IV SCH ×3 (06:01→21:33)
[2017-07-11] MEDS: ALBUTEROL 0.4 MG/ML 30 ML/BOTTLE PO SCH ×3 (06:02→21:43)
[2017-07-11] MEDS: predniSONE 10 MG TABLET PO SCH ×2 (06:02→12:29)
[2017-07-11] MEDS: ALBUTEROL/IPRATROPIUM 3 ML NEB RESP TX SCH ×4 (06:47→19:13)
[2017-07-11] MEDS: ACETAMINOPHEN 325 MG TABLET PO SCH (10:11)
[2017-07-11] MEDS: POTASSIUM CHLORIDE 10 MEQ TABLET PO SCH ×2 (10:11→21:34)
[2017-07-11] MEDS: METOPROLOL TARTRATE 25 MG TABLET PO SCH ×2 (10:12→21:33)
[2017-07-11] MEDS: SPIRONOLACTONE 25 MG TABLET PO SCH (10:13)
[2017-07-11] MEDS: glipiZIDE 5 MG TABLET PO SCH ×2 (10:13→16:34)
[2017-07-11] MEDS: PANTOPRAZOLE 40 MG TABLET PO SCH (10:13)
[2017-07-11] MEDS: methIMAzole 10 MG TABLET PO SCH (10:13)
[2017-07-11] MEDS: MAGNESIUM OXIDE 400 MG TABLET PO SCH ×2 (10:13→21:33)
[2017-07-11] MEDS: MONTELUKAST 10 MG TABLET PO SCH (10:14)
[2017-07-11] MEDS: ASPIRIN EC 81 MG TABLET PO SCH (10:14)
[2017-07-11] MEDS: DOCUSATE SODIUM 100 MG CAPSULE PO SCH ×2 (10:14→21:42)
[2017-07-11] MEDS: FUROSEMIDE 20 MG TABLET PO SCH (10:14)
[2017-07-11] MEDS: POLYETHYLENE GLYCOL POWDER 17 GM PACK PO SCH ×2 (10:14→21:42)
[2017-07-11] MEDS: CALCITRIOL 0.5 MCG CAPSULE PO SCH (10:14)
[2017-07-11] MEDS: miSOPROStol 200 MCG TABLET PO SCH ×2 (10:14→21:34)
[2017-07-11] MEDS: FLUTICASONE/SALMETEROL 500-50 DISKUS 14 DOSE INH SCH ×2 (10:15→21:42)
[2017-07-11] MEDS: INSULIN REGULAR 100 UNIT/ML SUBCUT SCH ×4 (10:15→21:47)
[2017-07-11] MEDS: metOLazone 2.5 MG TABLET PO SCH (10:16)
[2017-07-11] MEDS: LIDOCAINE 5% PATCH TRANSDERM SCH (10:17)
[2017-07-11] MEDS: THEOPHYLLINE ER (24 HR) 200 MG CAPSULE PO SCH (12:25)
[2017-07-11] MEDS: TAMSULOSIN 0.4 MG CAPSULE PO SCH (19:32)
[2017-07-11] MEDS: CYCLOBENZAPRINE 10 MG TABLET PO PRN (21:34)
[2017-07-11] MEDS: CLORAZEPATE 7.5 MG TABLET PO PRN (21:34)
[2017-07-11] MEDS: SODIUM CHLOR 0.9% KCL 40 MEQ 40 MEQ/1,000 ML BAG IV SCH ×2 (21:46→21:47)
[2017-07-12 05:43] LABS: Basophils # 0.1 10*3/uL (0.0-0.2); Basophils % 0.3 % (0.0-0.8); Eosinophils # 0.2 10*3/uL (0.0-0.87); Eosinophils % 0.9 % (0.00-10.9); Hematocrit 35.9 VOL% (42.0-52.0); Immature Granulocytes Absolute 3.52 #; Lymphocytes # 2.6 10*3/uL (1.4-4.0); Lymphocytes % 14.3 % (21.2-54.2); Mean Corpuscular HGB Conc 33.4 GM/DL (32-36); Mean Corpuscular Hemoglobin 31 PG (27-34); Mean Platelet Volume 9.5 FL (9.6-12.0); Monocytes # 1.8 10*3/uL (0.11-0.8); Monocytes % 9.6 % (1.7-12.7); NRBC # 0.03 10*3/uL; Neutrophils # 10.3 10*3/uL (1.4-7.4); Neutrophils % 55.9 % (38.7-73.9); Platelet Count 315 T/CUMM (130-400); Red Blood Count 3.86 MC/CUMM (3.8-5.5); Red Cell Distribution Width 13.9 % (9.3-17.3); White Blood Count 18.5 T/CUMM (4-12)
[2017-07-12 06:14] LABS: Calcium 9.2 MG/DL (8.5-10.1); Lymphocytes 17 % (20-55); Potassium 3.7 MMOL/L (3.5-5.1); Segmented Neutrophils 77 % (50-85); Total Cells Counted 100
[2017-07-12 06:16] LABS: Hypochromasia 1+
[2017-07-12 06:17] LABS: Platelet Estimate Adequate
[2017-07-12] MEDS: MEROPENEM 500 MG in SYRINGE 1 EACH IV SCH ×3 (06:49→21:55)
[2017-07-12] MEDS: ALBUTEROL/IPRATROPIUM 3 ML NEB RESP TX SCH ×4 (07:32→19:15)
[2017-07-12] MEDS: INSULIN REGULAR 100 UNIT/ML SUBCUT SCH ×4 (07:53→21:55)
[2017-07-12] MEDS: predniSONE 10 MG TABLET PO SCH ×2 (08:59→12:57)
[2017-07-12] MEDS: ALBUTEROL 0.4 MG/ML 30 ML/BOTTLE PO SCH ×3 (08:59→21:57)
[2017-07-12] MEDS ORDERED: methIMAzole 10 MG TABLET PO SCH (09:00)
[2017-07-12] MEDS: ASPIRIN EC 81 MG TABLET PO SCH (09:04)
[2017-07-12] MEDS: metOLazone 2.5 MG TABLET PO SCH (09:04)
[2017-07-12] MEDS: glipiZIDE 5 MG TABLET PO SCH ×2 (09:04→17:27)
[2017-07-12] MEDS: DOCUSATE SODIUM 100 MG CAPSULE PO SCH ×3 (09:04→21:57)
[2017-07-12] MEDS: CALCITRIOL 0.5 MCG CAPSULE PO SCH (09:04)
[2017-07-12] MEDS: MONTELUKAST 10 MG TABLET PO SCH (09:04)
[2017-07-12] MEDS: miSOPROStol 200 MCG TABLET PO SCH ×2 (09:04→21:56)
[2017-07-12] MEDS: PANTOPRAZOLE 40 MG TABLET PO SCH (09:04)
[2017-07-12] MEDS: METOPROLOL TARTRATE 25 MG TABLET PO SCH ×2 (09:05→21:56)
[2017-07-12] MEDS: MAGNESIUM OXIDE 400 MG TABLET PO SCH ×2 (09:05→21:56)
[2017-07-12] MEDS: THEOPHYLLINE ER (24 HR) 200 MG CAPSULE PO SCH (09:05)
[2017-07-12] MEDS: POTASSIUM CHLORIDE 10 MEQ TABLET PO SCH ×2 (09:05→21:56)
[2017-07-12] MEDS: SPIRONOLACTONE 25 MG TABLET PO SCH (09:05)
[2017-07-12] MEDS: ACETAMINOPHEN 325 MG TABLET PO SCH (09:05)
[2017-07-12] MEDS: CLORAZEPATE 7.5 MG TABLET PO PRN ×2 (09:05→21:55)
[2017-07-12] MEDS: FUROSEMIDE 20 MG TABLET PO SCH (09:05)
[2017-07-12] MEDS: POLYETHYLENE GLYCOL POWDER 17 GM PACK PO SCH ×3 (09:06→21:57)
[2017-07-12] MEDS: LIDOCAINE 5% PATCH TRANSDERM SCH ×2 (09:06→09:17)
[2017-07-12] MEDS: FLUTICASONE/SALMETEROL 500-50 DISKUS 14 DOSE INH SCH ×2 (09:10→22:00)
[2017-07-12] MEDS: SODIUM CHLOR 0.9% KCL 40 MEQ 40 MEQ/1,000 ML BAG IV SCH (11:49)
[2017-07-12] MEDS: metFORMIN 500 MG TABLET PO SCH (17:27)
[2017-07-12 18:37] LABS: Apearance,Urine CLEAR (Clear); Bilirubin,Urine Negative (Negative); Blood, Urine Negative (Negative); Glucose,Urine (UA) >=500 mg/dL (Negative); Ketones,Urine Negative (Negative); Nitrite,Urine Negative (Negative); Protein,Urine Negative; RBC,Urine <1 /HPF (0-4); Urine Color Straw (Yellow); Urine Specific Gravity 1.006 (1.001-1.035); Urine Urobilinogen < 2.0 EU/DL (0.2-1.0); WBC,Urine <1 /HPF (0-6)
[2017-07-12] MEDS: TAMSULOSIN 0.4 MG CAPSULE PO SCH (18:46)
[2017-07-12] MEDS: CYCLOBENZAPRINE 10 MG TABLET PO PRN (21:55)
[2017-07-13] MEDS: SODIUM CHLOR 0.9% KCL 40 MEQ 40 MEQ/1,000 ML BAG IV SCH ×2 (01:17→15:58)
[2017-07-13 06:09] LABS: Basophils % 0.2 % (0.0-0.8); Eosinophils # 0.2 10*3/uL (0.0-0.87); Eosinophils % 0.9 % (0.00-10.9); Hematocrit 37.9 VOL% (42.0-52.0); Hemoglobin 12.8 GM/DL (14.0-18.0); Immature Granulocytes % 17.5 %; Lymphocytes # 2.6 10*3/uL (1.4-4.0); Lymphocytes % 11.5 % (21.2-54.2); Mean Corpuscular HGB Conc 33.8 GM/DL (32-36); Mean Corpuscular Hemoglobin 31 PG (27-34); Mean Corpuscular Volume 93.1 FL (87-102); Mean Platelet Volume 9.4 FL (9.6-12.0); Monocytes # 1.5 10*3/uL (0.11-0.8); Monocytes % 6.7 % (1.7-12.7); NRBC # 0.03 10*3/uL; Neutrophils # 14.5 10*3/uL (1.4-7.4); Neutrophils % 63.2 % (38.7-73.9); Platelet Count 306 T/CUMM (130-400); Red Blood Count 4.07 MC/CUMM (3.8-5.5); Red Cell Distribution Width 13.9 % (9.3-17.3); White Blood Count 22.9 T/CUMM (4-12)
[2017-07-13 06:21] LABS: Calcium 9.1 MG/DL (8.5-10.1); Osmolality,Calculated 272.7 MOS/KG (273-304); Potassium 3.5 MMOL/L (3.5-5.1)
[2017-07-13] MEDS: MEROPENEM 500 MG in SYRINGE 1 EACH IV SCH ×3 (06:47→21:09)
[2017-07-13] MEDS: predniSONE 10 MG TABLET PO SCH ×2 (06:47→13:22)
[2017-07-13 06:48] LABS: Eosinophils 3 % (0-10); Hypochromasia 2+; Lymphocytes 18 % (20-55); Microcytosis Slight; Platelet Estimate Adequate; Segmented Neutrophils 74 % (50-85); Total Cells Counted 100
[2017-07-13] MEDS: ALBUTEROL/IPRATROPIUM 3 ML NEB RESP TX SCH ×4 (07:07→20:26)
[2017-07-13] MEDS: INSULIN REGULAR 100 UNIT/ML SUBCUT SCH ×4 (08:24→20:19)
[2017-07-13] MEDS: metFORMIN 500 MG TABLET PO SCH ×2 (08:24→17:09)
[2017-07-13] MEDS: glipiZIDE 5 MG TABLET PO SCH ×2 (08:24→17:08)
[2017-07-13] MEDS: ALBUTEROL 0.4 MG/ML 30 ML/BOTTLE PO SCH ×3 (08:26→21:10)
[2017-07-13] MEDS: LIDOCAINE 5% PATCH TRANSDERM SCH (08:27)
[2017-07-13] MEDS: POLYETHYLENE GLYCOL POWDER 17 GM PACK PO SCH ×2 (08:27→20:19)
[2017-07-13] MEDS: methIMAzole 10 MG TABLET PO SCH (08:27)
[2017-07-13] MEDS: PANTOPRAZOLE 40 MG TABLET PO SCH (08:28)
[2017-07-13] MEDS: FUROSEMIDE 20 MG TABLET PO SCH (08:28)
[2017-07-13] MEDS: ACETAMINOPHEN 325 MG TABLET PO SCH (08:28)
[2017-07-13] MEDS: ASPIRIN EC 81 MG TABLET PO SCH (08:28)
[2017-07-13] MEDS: THEOPHYLLINE ER (24 HR) 200 MG CAPSULE PO SCH (08:28)
[2017-07-13] MEDS: metOLazone 2.5 MG TABLET PO SCH (08:28)
[2017-07-13] MEDS: POTASSIUM CHLORIDE 10 MEQ TABLET PO SCH ×2 (08:28→20:19)
[2017-07-13] MEDS: SPIRONOLACTONE 25 MG TABLET PO SCH (08:28)
[2017-07-13] MEDS: DOCUSATE SODIUM 100 MG CAPSULE PO SCH ×2 (08:28→20:19)
[2017-07-13] MEDS: miSOPROStol 200 MCG TABLET PO SCH ×2 (08:28→20:18)
[2017-07-13] MEDS: METOPROLOL TARTRATE 25 MG TABLET PO SCH ×2 (08:28→20:18)
[2017-07-13] MEDS: MAGNESIUM OXIDE 400 MG TABLET PO SCH ×2 (08:28→20:18)
[2017-07-13] MEDS: CALCITRIOL 0.5 MCG CAPSULE PO SCH (08:28)
[2017-07-13] MEDS: MONTELUKAST 10 MG TABLET PO SCH (08:28)
[2017-07-13] MEDS: FLUTICASONE/SALMETEROL 500-50 DISKUS 14 DOSE INH SCH ×2 (08:30→20:17)
[2017-07-13] MEDS ORDERED: ERGOCALCIFEROL 50,000 UNIT CAPSULE PO SCH (09:00)
[2017-07-13] MEDS: CYCLOBENZAPRINE 10 MG TABLET PO PRN (20:18)
[2017-07-13] MEDS: TAMSULOSIN 0.4 MG CAPSULE PO SCH (20:18)
[2017-07-14 05:17] LABS: Basophils % 0.1 % (0.0-0.8); Eosinophils # 0.2 10*3/uL (0.0-0.87); Eosinophils % 0.7 % (0.00-10.9); Hematocrit 35.1 VOL% (42.0-52.0); Immature Granulocytes % 13.2 %; Immature Granulocytes Absolute 2.82 #; Lymphocytes # 2.6 10*3/uL (1.4-4.0); Mean Corpuscular HGB Conc 34.2 GM/DL (32-36); Mean Corpuscular Hemoglobin 31 PG (27-34); Mean Corpuscular Volume 90.7 FL (87-102); Mean Platelet Volume 9.3 FL (9.6-12.0); Monocytes # 1.5 10*3/uL (0.11-0.8); Monocytes % 7.2 % (1.7-12.7); Neutrophils # 14.3 10*3/uL (1.4-7.4); Neutrophils % 66.8 % (38.7-73.9); Platelet Count 292 T/CUMM (130-400); Red Blood Count 3.87 MC/CUMM (3.8-5.5); White Blood Count 21.4 T/CUMM (4-12)
[2017-07-14 05:48] LABS: Calcium 8.9 MG/DL (8.5-10.1); Osmolality,Calculated 276.8 MOS/KG (273-304); Potassium 3.4 MMOL/L (3.5-5.1)
[2017-07-14] MEDS: ALBUTEROL 0.4 MG/ML 30 ML/BOTTLE PO SCH ×3 (05:59→21:11)
[2017-07-14] MEDS: predniSONE 10 MG TABLET PO SCH ×2 (06:00→13:39)
[2017-07-14] MEDS: MEROPENEM 500 MG in SYRINGE 1 EACH IV SCH ×3 (06:00→21:11)
[2017-07-14] MEDS: SODIUM CHLOR 0.9% KCL 40 MEQ 40 MEQ/1,000 ML BAG IV SCH (06:44)
[2017-07-14 06:46] LABS: Lymphocytes 16 % (20-55); Segmented Neutrophils 80 % (50-85); Total Cells Counted 100
[2017-07-14 06:47] LABS: Platelet Estimate Normal
[2017-07-14] MEDS: ALBUTEROL/IPRATROPIUM 3 ML NEB RESP TX SCH ×4 (07:25→21:55)
[2017-07-14] MEDS ORDERED: RISEDRONATE 35 MG TABLET PO SCH (07:30)
[2017-07-14] MEDS: glipiZIDE 5 MG TABLET PO SCH ×2 (07:54→16:25)
[2017-07-14] MEDS: INSULIN REGULAR 100 UNIT/ML SUBCUT SCH ×4 (07:54→20:13)
[2017-07-14] MEDS: metFORMIN 500 MG TABLET PO SCH ×2 (07:55→16:25)
[2017-07-14] MEDS: DOCUSATE SODIUM 100 MG CAPSULE PO SCH ×2 (07:59→21:20)
[2017-07-14] MEDS: CALCITRIOL 0.5 MCG CAPSULE PO SCH (07:59)
[2017-07-14] MEDS: POLYETHYLENE GLYCOL POWDER 17 GM PACK PO SCH ×2 (07:59→21:15)
[2017-07-14] MEDS: MAGNESIUM OXIDE 400 MG TABLET PO SCH ×2 (07:59→21:11)
[2017-07-14] MEDS: miSOPROStol 200 MCG TABLET PO SCH ×2 (07:59→21:11)
[2017-07-14] MEDS: ASPIRIN EC 81 MG TABLET PO SCH (07:59)
[2017-07-14] MEDS: MONTELUKAST 10 MG TABLET PO SCH (07:59)
[2017-07-14] MEDS: metOLazone 2.5 MG TABLET PO SCH (07:59)
[2017-07-14] MEDS: FUROSEMIDE 20 MG TABLET PO SCH (07:59)
[2017-07-14] MEDS: THEOPHYLLINE ER (24 HR) 200 MG CAPSULE PO SCH (07:59)
[2017-07-14] MEDS: methIMAzole 10 MG TABLET PO SCH (07:59)
[2017-07-14] MEDS: METOPROLOL TARTRATE 25 MG TABLET PO SCH ×2 (07:59→21:12)
[2017-07-14] MEDS: PANTOPRAZOLE 40 MG TABLET PO SCH (08:00)
[2017-07-14] MEDS: SPIRONOLACTONE 25 MG TABLET PO SCH (08:00)
[2017-07-14] MEDS: POTASSIUM CHLORIDE 10 MEQ TABLET PO SCH ×2 (08:00→21:11)
[2017-07-14] MEDS: LIDOCAINE 5% PATCH TRANSDERM SCH (08:01)
[2017-07-14] MEDS: FLUTICASONE/SALMETEROL 500-50 DISKUS 14 DOSE INH SCH ×2 (08:01→21:15)
[2017-07-14] MEDS: ACETAMINOPHEN 325 MG TABLET PO SCH (08:04)
[2017-07-14] MEDS ORDERED: POTASSIUM CHLORIDE 20 MEQ PACK PO ONE (15:29)
[2017-07-14] MEDS: TAMSULOSIN 0.4 MG CAPSULE PO SCH (18:00)
[2017-07-14] MEDS: CLORAZEPATE 7.5 MG TABLET PO PRN (21:11)
[2017-07-14] MEDS: CYCLOBENZAPRINE 10 MG TABLET PO PRN (21:11)
[2017-07-15 05:47] LABS: Basophils # 0.2 10*3/uL (0.0-0.2); Basophils % 0.8 % (0.0-0.8); Eosinophils # 0.1 10*3/uL (0.0-0.87); Eosinophils % 0.5 % (0.00-10.9); Hematocrit 35.9 VOL% (42.0-52.0); Hemoglobin 12.6 GM/DL (14.0-18.0); Immature Granulocytes % 10.5 %; Immature Granulocytes Absolute 2.12 #; Lymphocytes # 2.8 10*3/uL (1.4-4.0); Lymphocytes % 13.9 % (21.2-54.2); Mean Corpuscular HGB Conc 35.1 GM/DL (32-36); Mean Corpuscular Hemoglobin 32 PG (27-34); Mean Corpuscular Volume 90.4 FL (87-102); Mean Platelet Volume 9.3 FL (9.6-12.0); Monocytes # 1.5 10*3/uL (0.11-0.8); Monocytes % 7.2 % (1.7-12.7); NRBC # 0.02 10*3/uL; Neutrophils # 13.6 10*3/uL (1.4-7.4); Neutrophils % 67.1 % (38.7-73.9); Platelet Count 311 T/CUMM (130-400); Red Blood Count 3.97 MC/CUMM (3.8-5.5); Red Cell Distribution Width 14.1 % (9.3-17.3); White Blood Count 20.3 T/CUMM (4-12)
[2017-07-15 06:09] LABS: Band Neutrophils 1 % (0-10); Lymphocytes 18 % (20-55); Segmented Neutrophils 74 % (50-85); Total Cells Counted 100
[2017-07-15 06:10] LABS: Hypochromasia 1+; Microcytosis Slight
[2017-07-15 06:11] LABS: Platelet Estimate Normal
[2017-07-15 06:15] LABS: Alanine Aminotransferase 42 U/L (16-61); Albumin 2.9 G/DL (3.4-5.0); Alkaline Phosphatase 132 U/L (45-117); Aspartate Amino Transferase 16 U/L (0-37); Bilirubin,Total < 0.39 MG/DL (0.2-1.0); Calcium 9.3 MG/DL (8.5-10.1); Total Protein 5.6 G/DL (6.4-8.3)
[2017-07-15 06:16] LABS: Blood Urea Nitrogen 18 MG/DL (7-18); Glucose 134 MG/DL (74-106); Osmolality,Calculated 278.7 MOS/KG (273-304); Potassium 3.6 MMOL/L (3.5-5.1); Sodium 138 MMOL/L (136-145)
[2017-07-15] MEDS: MEROPENEM 500 MG in SYRINGE 1 EACH IV SCH ×3 (06:27→22:13)
[2017-07-15] MEDS: predniSONE 10 MG TABLET PO SCH ×3 (06:27→15:00)
[2017-07-15] MEDS: ALBUTEROL 0.4 MG/ML 30 ML/BOTTLE PO SCH ×3 (06:28→22:18)
[2017-07-15 06:29] LABS: Calcium 9.5 MG/DL (8.5-10.1); Potassium 3.6 MMOL/L (3.5-5.1)
[2017-07-15] MEDS: ALBUTEROL/IPRATROPIUM 3 ML NEB RESP TX SCH ×4 (07:22→18:52)
[2017-07-15] MEDS: glipiZIDE 5 MG TABLET PO SCH ×2 (07:50→18:55)
[2017-07-15] MEDS: metFORMIN 500 MG TABLET PO SCH ×2 (07:50→18:56)
[2017-07-15] MEDS: INSULIN REGULAR 100 UNIT/ML SUBCUT SCH ×4 (07:50→22:04)
[2017-07-15] MEDS ORDERED: MEPERIDINE 50 MG/1 ML VIAL ONE (09:37)
[2017-07-15] MEDS ORDERED: diphenhydrAMINE 50 MG/1 ML VIAL ONE (09:37)
[2017-07-15] MEDS ORDERED: diphenhydrAMINE 50 MG/1 ML VIAL IM ONE (09:39)
[2017-07-15] MEDS ORDERED: MEPERIDINE 25 MG/1 ML VIAL IM ONE (09:41)
[2017-07-15] MEDS ORDERED: BENZONATATE 100 MG CAPSULE PO ONE (09:43)
[2017-07-15] MEDS: FLUTICASONE/SALMETEROL 500-50 DISKUS 14 DOSE INH SCH ×2 (10:00→22:06)
[2017-07-15] MEDS ORDERED: LIDOCAINE 2% TOP JELLY 5 ML TUBE TOP ONE (10:40)
[2017-07-15] MEDS ORDERED: LIDOCAINE 2% 20 ML VIAL RESP TX ONE (10:40)
[2017-07-15] MEDS ORDERED: LIDOCAINE 1% 20 ML VIAL INFILTRAT ONE (10:49)
[2017-07-15] MEDS ORDERED: MAGNESIUM SULF RIDER 2 GM in PREMIX 1 EACH IV ONE (12:08)
[2017-07-15] MEDS: miSOPROStol 200 MCG TABLET PO SCH ×2 (14:58→22:03)
[2017-07-15] MEDS: POLYETHYLENE GLYCOL POWDER 17 GM PACK PO SCH ×2 (14:58→22:02)
[2017-07-15] MEDS: CALCITRIOL 0.5 MCG CAPSULE PO SCH (14:58)
[2017-07-15] MEDS: MAGNESIUM OXIDE 400 MG TABLET PO SCH ×2 (14:59→22:04)
[2017-07-15] MEDS: metOLazone 2.5 MG TABLET PO SCH (14:59)
[2017-07-15] MEDS: methIMAzole 10 MG TABLET PO SCH (14:59)
[2017-07-15] MEDS: ACETAMINOPHEN 325 MG TABLET PO SCH (14:59)
[2017-07-15] MEDS: FUROSEMIDE 20 MG TABLET PO SCH (15:00)
[2017-07-15] MEDS: MONTELUKAST 10 MG TABLET PO SCH (15:00)
[2017-07-15] MEDS: PANTOPRAZOLE 40 MG TABLET PO SCH (15:00)
[2017-07-15] MEDS: POTASSIUM CHLORIDE 10 MEQ TABLET PO SCH ×2 (15:01→22:04)
[2017-07-15] MEDS: DOCUSATE SODIUM 100 MG CAPSULE PO SCH ×2 (15:01→22:04)
[2017-07-15] MEDS: SPIRONOLACTONE 25 MG TABLET PO SCH (15:01)
[2017-07-15] MEDS: METOPROLOL TARTRATE 25 MG TABLET PO SCH ×2 (15:02→22:03)
[2017-07-15] MEDS: ASPIRIN EC 81 MG TABLET PO SCH (15:02)
[2017-07-15] MEDS: LIDOCAINE 5% PATCH TRANSDERM SCH (15:05)
[2017-07-15] MEDS: THEOPHYLLINE ER (24 HR) 200 MG CAPSULE PO SCH (22:03)
[2017-07-15] MEDS: TAMSULOSIN 0.4 MG CAPSULE PO SCH (22:04)
[2017-07-16 05:26] LABS: Calcium 8.7 MG/DL (8.5-10.1); Potassium 3.6 MMOL/L (3.5-5.1)
[2017-07-16] MEDS: ALBUTEROL 0.4 MG/ML 30 ML/BOTTLE PO SCH ×3 (05:55→21:53)
[2017-07-16] MEDS: MEROPENEM 500 MG in SYRINGE 1 EACH IV SCH ×3 (05:56→21:57)
[2017-07-16] MEDS: predniSONE 10 MG TABLET PO SCH ×2 (06:45→13:22)
[2017-07-16] MEDS: ALBUTEROL/IPRATROPIUM 3 ML NEB RESP TX SCH ×4 (07:25→19:05)
[2017-07-16] MEDS: CALCITRIOL 0.5 MCG CAPSULE PO SCH (10:07)
[2017-07-16] MEDS: miSOPROStol 200 MCG TABLET PO SCH ×2 (10:08→21:50)
[2017-07-16] MEDS: glipiZIDE 5 MG TABLET PO SCH ×2 (10:08→18:22)
[2017-07-16] MEDS: THEOPHYLLINE ER (24 HR) 200 MG CAPSULE PO SCH (10:08)
[2017-07-16] MEDS: PANTOPRAZOLE 40 MG TABLET PO SCH (10:12)
[2017-07-16] MEDS: metOLazone 2.5 MG TABLET PO SCH (10:12)
[2017-07-16] MEDS: methIMAzole 10 MG TABLET PO SCH (10:12)
[2017-07-16] MEDS: MAGNESIUM OXIDE 400 MG TABLET PO SCH ×3 (10:12→21:50)
[2017-07-16] MEDS: metFORMIN 500 MG TABLET PO SCH ×2 (10:13→18:22)
[2017-07-16] MEDS: POTASSIUM CHLORIDE 10 MEQ TABLET PO SCH ×2 (10:13→21:50)
[2017-07-16] MEDS: DOCUSATE SODIUM 100 MG CAPSULE PO SCH ×2 (10:13→21:50)
[2017-07-16] MEDS: SPIRONOLACTONE 25 MG TABLET PO SCH (10:13)
[2017-07-16] MEDS: FLUTICASONE/SALMETEROL 500-50 DISKUS 14 DOSE INH SCH ×2 (10:13→21:52)
[2017-07-16] MEDS: FUROSEMIDE 20 MG TABLET PO SCH (10:13)
[2017-07-16] MEDS: LIDOCAINE 5% PATCH TRANSDERM SCH (10:14)
[2017-07-16] MEDS: POLYETHYLENE GLYCOL POWDER 17 GM PACK PO SCH ×2 (10:14→21:49)
[2017-07-16] MEDS: METOPROLOL TARTRATE 25 MG TABLET PO SCH ×2 (10:14→21:50)
[2017-07-16] MEDS: INSULIN REGULAR 100 UNIT/ML SUBCUT SCH ×4 (10:15→21:50)
[2017-07-16] MEDS: ASPIRIN EC 81 MG TABLET PO SCH (10:15)
[2017-07-16] MEDS: MONTELUKAST 10 MG TABLET PO SCH (13:21)
[2017-07-16] MEDS: ACETAMINOPHEN 325 MG TABLET PO SCH (13:21)
[2017-07-16] MEDS: CLORAZEPATE 7.5 MG TABLET PO PRN ×2 (15:39→22:04)
[2017-07-16] MEDS: TAMSULOSIN 0.4 MG CAPSULE PO SCH (18:34)
[2017-07-17 04:34] LABS: Basophils # 0.1 10*3/uL (0.0-0.2); Basophils % 0.8 % (0.0-0.8); Eosinophils # 0.1 10*3/uL (0.0-0.87); Eosinophils % 0.4 % (0.00-10.9); Hematocrit 37.9 VOL% (42.0-52.0); Hemoglobin 13.1 GM/DL (14.0-18.0); Immature Granulocytes Absolute 1.17 #; Lymphocytes # 2.7 10*3/uL (1.4-4.0); Lymphocytes % 18.1 % (21.2-54.2); Mean Corpuscular HGB Conc 34.6 GM/DL (32-36); Mean Corpuscular Hemoglobin 31 PG (27-34); Mean Platelet Volume 9.5 FL (9.6-12.0); Monocytes # 1.3 10*3/uL (0.11-0.8); Neutrophils # 9.3 10*3/uL (1.4-7.4); Neutrophils % 63.7 % (38.7-73.9); Platelet Count 363 T/CUMM (130-400); Red Blood Count 4.21 MC/CUMM (3.8-5.5); Red Cell Distribution Width 14.2 % (9.3-17.3); White Blood Count 14.7 T/CUMM (4-12)
[2017-07-17 04:59] LABS: Calcium 8.8 MG/DL (8.5-10.1); Osmolality,Calculated 274.8 MOS/KG (273-304); Potassium 3.9 MMOL/L (3.5-5.1)
[2017-07-17 05:22] LABS: Band Neutrophils 1 % (0-10); Lymphocytes 24 % (20-55); Segmented Neutrophils 64 % (50-85); Total Cells Counted 100
[2017-07-17 05:23] LABS: Giant Platelets Few; Hypochromasia 1+; Microcytosis Slight; Platelet Estimate Adequate
[2017-07-17] MEDS: predniSONE 10 MG TABLET PO SCH (06:16)
[2017-07-17] MEDS: ALBUTEROL 0.4 MG/ML 30 ML/BOTTLE PO SCH (06:17)
[2017-07-17] MEDS: MEROPENEM 500 MG in SYRINGE 1 EACH IV SCH (06:19)
[2017-07-17] MEDS: ALBUTEROL/IPRATROPIUM 3 ML NEB RESP TX SCH ×2 (07:06→11:04)
[2017-07-17] MEDS: MONTELUKAST 10 MG TABLET PO SCH (10:15)
[2017-07-17] MEDS: CALCITRIOL 0.5 MCG CAPSULE PO SCH (10:16)
[2017-07-17] MEDS: SPIRONOLACTONE 25 MG TABLET PO SCH (10:16)
[2017-07-17] MEDS: POTASSIUM CHLORIDE 10 MEQ TABLET PO SCH (10:16)
[2017-07-17] MEDS: FUROSEMIDE 20 MG TABLET PO SCH (10:16)
[2017-07-17] MEDS: methIMAzole 10 MG TABLET PO SCH (10:16)
[2017-07-17] MEDS: MAGNESIUM OXIDE 400 MG TABLET PO SCH (10:17)
[2017-07-17] MEDS: DOCUSATE SODIUM 100 MG CAPSULE PO SCH (10:17)
[2017-07-17] MEDS: miSOPROStol 200 MCG TABLET PO SCH (10:17)
[2017-07-17] MEDS: METOPROLOL TARTRATE 25 MG TABLET PO SCH (10:17)
[2017-07-17] MEDS: metFORMIN 500 MG TABLET PO SCH (10:17)
[2017-07-17] MEDS: THEOPHYLLINE ER (24 HR) 200 MG CAPSULE PO SCH (10:22)
[2017-07-17] MEDS: metOLazone 2.5 MG TABLET PO SCH (10:22)
[2017-07-17] MEDS: glipiZIDE 5 MG TABLET PO SCH (10:23)
[2017-07-17] MEDS: ASPIRIN EC 81 MG TABLET PO SCH (10:23)
[2017-07-17] MEDS: PANTOPRAZOLE 40 MG TABLET PO SCH (10:23)
[2017-07-17] MEDS: FLUTICASONE/SALMETEROL 500-50 DISKUS 14 DOSE INH SCH (10:24)
[2017-07-17] MEDS: LIDOCAINE 5% PATCH TRANSDERM SCH (10:25)
[2017-07-17] MEDS: INSULIN REGULAR 100 UNIT/ML SUBCUT SCH (10:25)
[2017-07-17 11:37] VITALS: BP 149/77
[2017-07-17] MEDS ORDERED: FLUCONAZOLE 200 MG TABLET PO SCH (12:00)
== END 2017-07-17 13:25 | disposition home health service (06) | DRG 167 ==
LOC: N.TELES 17:00
PROVIDERS: ADMIT Internal Medicine Pulmonary Disease; ATTEND Internal Medicine Pulmonary Disease
PROC: CLCCHCL (ICD-10-PCS; 2017-07-10 08:15)

== ENCOUNTER 2017-08-23 04:17 | Inpatient (IN) ==
[2017-08-23] MEDS ORDERED: DEXTROSE 50% 25 GM/50 ML VIAL IV PRN (05:32)
[2017-08-23] MEDS ORDERED: GLUCAGON 1 MG VIAL IM PRN (05:32)
[2017-08-23] MEDS ORDERED: SODIUM CHLORIDE 0.9% 1,000 ML IV SCH (06:00)
[2017-08-23] MEDS ORDERED: BISACODYL 5 MG TABLET PO PRN (08:13)
[2017-08-23 09:10] LABS: Basophils # 0.1 10*3/uL (0.0-0.2); Basophils % 0.2 % (0.0-0.8); Hematocrit 34.4 VOL% (42.0-52.0); Hemoglobin 11.5 GM/DL (14.0-18.0); Immature Granulocytes Absolute 1.47 #; Lymphocytes # 1.3 10*3/uL (1.4-4.0); Lymphocytes % 4.3 % (21.2-54.2); Mean Corpuscular HGB Conc 33.4 GM/DL (32-36); Mean Corpuscular Hemoglobin 31 PG (27-34); Mean Corpuscular Volume 93.2 FL (87-102); Mean Platelet Volume 8.9 FL (9.6-12.0); Monocytes # 2.1 10*3/uL (0.11-0.8); Monocytes % 7.1 % (1.7-12.7); Neutrophils # 24.8 10*3/uL (1.4-7.4); Neutrophils % 83.4 % (38.7-73.9); Platelet Count 305 T/CUMM (130-400); Red Blood Count 3.69 MC/CUMM (3.8-5.5); Red Cell Distribution Width 13.9 % (9.3-17.3); White Blood Count 29.7 T/CUMM (4-12)
[2017-08-23] MEDS: INSULIN REGULAR 100 UNIT/ML SUBCUT SCH ×4 (09:20→20:44)
[2017-08-23] MEDS: miSOPROStol 200 MCG TABLET PO SCH ×2 (09:25→20:44)
[2017-08-23] MEDS: MAGNESIUM OXIDE 400 MG TABLET PO SCH ×3 (09:25→20:44)
[2017-08-23] MEDS: metOLazone 2.5 MG TABLET PO SCH (09:25)
[2017-08-23] MEDS: TAMSULOSIN 0.4 MG CAPSULE PO SCH (09:25)
[2017-08-23] MEDS: THEOPHYLLINE ER (24 HR) 200 MG CAPSULE PO SCH (09:25)
[2017-08-23] MEDS: MONTELUKAST 10 MG TABLET PO SCH (09:25)
[2017-08-23] MEDS: DOCUSATE SODIUM 100 MG CAPSULE PO SCH ×2 (09:25→20:44)
[2017-08-23] MEDS: PANTOPRAZOLE 40 MG TABLET PO SCH (09:26)
[2017-08-23] MEDS: ASPIRIN EC 81 MG TABLET PO SCH (09:26)
[2017-08-23] MEDS: ENOXAPARIN 40 MG/0.4 ML SYRINGE SUBCUT SCH (09:26)
[2017-08-23 09:33] LABS: Lactic Acid 2.8 MMOL/L (0.4-2.0); Troponin I Only 0.093 NG/ML (0.00-0.045)
[2017-08-23] MEDS: cefTRIAXone 2,000 MG in SYRINGE 1 EACH IV SCH (09:35)
[2017-08-23] MEDS: FLUTICASONE/SALMETEROL 500-50 DISKUS 14 DOSE INH SCH ×2 (09:35→20:43)
[2017-08-23] MEDS: methIMAzole 10 MG TABLET PO SCH (09:36)
[2017-08-23 09:45] LABS: Alanine Aminotransferase 24 U/L (16-61); Albumin 2.1 G/DL (3.4-5.0); Alkaline Phosphatase 101 U/L (45-117); Aspartate Amino Transferase 21 U/L (0-37); Bilirubin,Total < 0.39 MG/DL (0.2-1.0); Blood Urea Nitrogen 21 MG/DL (7-18); Calcium 7.7 MG/DL (8.5-10.1); Glucose 246 MG/DL (74-106); Osmolality,Calculated 283.8 MOS/KG (273-304); Potassium 3.4 MMOL/L (3.5-5.1); Sodium 137 MMOL/L (136-145); Total Protein 5.7 G/DL (6.4-8.3)
[2017-08-23] MEDS ORDERED: POTASSIUM CHLORIDE 20 MEQ TABLET PO ONE (09:52)
[2017-08-23 10:32] LABS: ABG HCO3 26.2 MMOL/L (20-26); ABG Oxygen Saturation 97.9 % (95-100); ABG PCO2 42.9 MM HG (35-48); ABG PH 7.406 (7.35-7.45); ABG TCO2 24.3 MMOL/L (23-27)
[2017-08-23] MEDS ORDERED: IPRATROPIUM 500 MCG/2.5 ML NEB RESP TX SCH (11:00)
[2017-08-23] MEDS ORDERED: ALBUTEROL/IPRATROPIUM 3 ML NEB RESP TX SCH (11:00)
[2017-08-23 11:06] LABS: Band Neutrophils 3 % (0-10); Lymphocytes 2 % (20-55); Segmented Neutrophils 91 % (50-85); Total Cells Counted 100
[2017-08-23 11:07] LABS: Hypochromasia 1+; Microcytosis 1+; Platelet Estimate Normal
[2017-08-23] MEDS: NOREPINEPHRINE 8 MG in SODIUM CHLORIDE 0.9% 242 ML IV SCH (11:11)
[2017-08-23] MEDS: LACTATED RINGERS 1,000 ML IV SCH ×3 (11:40→21:42)
[2017-08-23] MEDS: ALBUTEROL/IPRATROPIUM 3 ML NEB RESP TX SCH ×2 (12:26→19:02)
[2017-08-23 14:06] LABS: Lactic Acid 3.1 MMOL/L (0.4-2.0)
[2017-08-23] MEDS: ZINC OXIDE PASTE 113 GM TUBE TOP SCH ×2 (14:22→20:44)
[2017-08-23] MEDS ORDERED: LACTATED RINGERS 1,000 ML IV ONE (15:50)
[2017-08-23] MEDS: glipiZIDE 5 MG TABLET PO SCH (16:41)
[2017-08-23 18:32] LABS: Lactic Acid 3.7 MMOL/L (0.4-2.0)
[2017-08-24] MEDS: ALBUTEROL/IPRATROPIUM 3 ML NEB RESP TX SCH ×4 (01:01→19:13)
[2017-08-24] MEDS: LACTATED RINGERS 1,000 ML IV SCH ×3 (05:25→21:32)
[2017-08-24 06:02] LABS: Basophils # 0.1 10*3/uL (0.0-0.2); Basophils % 0.4 % (0.0-0.8); Eosinophils % 0.2 % (0.00-10.9); Hematocrit 40.6 VOL% (42.0-52.0); Hemoglobin 14.3 GM/DL (14.0-18.0); Immature Granulocytes % 1.7 %; Immature Granulocytes Absolute 0.31 #; Lymphocytes % 10.6 % (21.2-54.2); Mean Corpuscular HGB Conc 35.2 GM/DL (32-36); Mean Corpuscular Hemoglobin 32 PG (27-34); Mean Corpuscular Volume 89.4 FL (87-102); Monocytes # 1.1 10*3/uL (0.11-0.8); Monocytes % 5.9 % (1.7-12.7); Neutrophils # 15.1 10*3/uL (1.4-7.4); Neutrophils % 81.2 % (38.7-73.9); Platelet Count 196 T/CUMM (130-400); Red Blood Count 4.54 MC/CUMM (3.8-5.5); Red Cell Distribution Width 14.2 % (9.3-17.3); White Blood Count 18.6 T/CUMM (4-12)
[2017-08-24 06:44] LABS: Alanine Aminotransferase 23 U/L (16-61); Albumin 1.6 G/DL (3.4-5.0); Alkaline Phosphatase 83 U/L (45-117); Aspartate Amino Transferase 21 U/L (0-37); Bilirubin,Total < 0.39 MG/DL (0.2-1.0); Blood Urea Nitrogen 12 MG/DL (7-18); Calcium 7.7 MG/DL (8.5-10.1); Cholesterol 153 MG/DL (50-200); Glucose 70 MG/DL (74-106); HDL Cholesterol 52 MG/DL (40-60); Osmolality,Calculated 267.1 MOS/KG (273-304); Potassium 3.1 MMOL/L (3.5-5.1); Risk Ratio 2.94; Sodium 135 MMOL/L (136-145); Total Protein 5.3 G/DL (6.4-8.3); Triglycerides 155 MG/DL (2-150)
[2017-08-24] MEDS: ALBUTEROL 2.5 MG/3 ML NEB RESP TX PRN (07:48)
[2017-08-24] MEDS: INSULIN REGULAR 100 UNIT/ML SUBCUT SCH ×4 (08:49→20:14)
[2017-08-24] MEDS: glipiZIDE 5 MG TABLET PO SCH ×2 (08:49→16:42)
[2017-08-24] MEDS: NOREPINEPHRINE 8 MG in SODIUM CHLORIDE 0.9% 242 ML IV SCH (08:50)
[2017-08-24] MEDS: miSOPROStol 200 MCG TABLET PO SCH ×2 (08:59→20:14)
[2017-08-24] MEDS: FLUTICASONE/SALMETEROL 500-50 DISKUS 14 DOSE INH SCH ×2 (08:59→20:13)
[2017-08-24] MEDS: DOCUSATE SODIUM 100 MG CAPSULE PO SCH ×2 (08:59→20:14)
[2017-08-24] MEDS: MAGNESIUM OXIDE 400 MG TABLET PO SCH ×3 (08:59→20:14)
[2017-08-24] MEDS: MONTELUKAST 10 MG TABLET PO SCH (08:59)
[2017-08-24] MEDS: PANTOPRAZOLE 40 MG TABLET PO SCH (09:00)
[2017-08-24] MEDS: metOLazone 2.5 MG TABLET PO SCH (09:00)
[2017-08-24] MEDS: cefTRIAXone 2,000 MG in SYRINGE 1 EACH IV SCH (09:00)
[2017-08-24] MEDS: ERGOCALCIFEROL 50,000 UNIT CAPSULE PO SCH (09:00)
[2017-08-24] MEDS: TAMSULOSIN 0.4 MG CAPSULE PO SCH (09:00)
[2017-08-24] MEDS: ASPIRIN EC 81 MG TABLET PO SCH (09:00)
[2017-08-24] MEDS: THEOPHYLLINE ER (24 HR) 200 MG CAPSULE PO SCH (09:00)
[2017-08-24] MEDS: ENOXAPARIN 40 MG/0.4 ML SYRINGE SUBCUT SCH (09:01)
[2017-08-24] MEDS: ZINC OXIDE PASTE 113 GM TUBE TOP SCH ×2 (09:01→20:20)
[2017-08-24] MEDS: methIMAzole 10 MG TABLET PO SCH (09:03)
[2017-08-24] MEDS: POTASSIUM CHLORIDE 20 MEQ/15 ML UDCUP PO PRN ×4 (11:03→19:48)
[2017-08-24] MEDS: METOPROLOL TARTRATE 25 MG TABLET PO SCH (20:14)
[2017-08-25] MEDS: POTASSIUM CHLORIDE 20 MEQ/15 ML UDCUP PO PRN ×2 (00:16→05:44)
[2017-08-25] MEDS: ALBUTEROL/IPRATROPIUM 3 ML NEB RESP TX SCH ×4 (00:54→21:21)
[2017-08-25 05:07] LABS: Basophils % 0.2 % (0.0-0.8); Eosinophils # 0.1 10*3/uL (0.0-0.87); Eosinophils % 0.5 % (0.00-10.9); Hematocrit 27.7 VOL% (42.0-52.0); Hemoglobin 9.4 GM/DL (14.0-18.0); Immature Granulocytes % 1.9 %; Immature Granulocytes Absolute 0.28 #; Lymphocytes # 1.5 10*3/uL (1.4-4.0); Lymphocytes % 10.2 % (21.2-54.2); Mean Corpuscular HGB Conc 33.9 GM/DL (32-36); Mean Corpuscular Hemoglobin 31 PG (27-34); Mean Corpuscular Volume 90.5 FL (87-102); Mean Platelet Volume 9.4 FL (9.6-12.0); Monocytes # 0.7 10*3/uL (0.11-0.8); Monocytes % 5.1 % (1.7-12.7); Neutrophils # 11.8 10*3/uL (1.4-7.4); Neutrophils % 82.1 % (38.7-73.9); Platelet Count 313 T/CUMM (130-400); Red Blood Count 3.06 MC/CUMM (3.8-5.5); Red Cell Distribution Width 14.3 % (9.3-17.3); White Blood Count 14.4 T/CUMM (4-12)
[2017-08-25] MEDS: LACTATED RINGERS 1,000 ML IV SCH ×2 (05:15→18:09)
[2017-08-25 05:30] LABS: Calcium 8.1 MG/DL (8.5-10.1); Osmolality,Calculated 270.8 MOS/KG (273-304); Potassium 3.4 MMOL/L (3.5-5.1)
[2017-08-25] MEDS ORDERED: RISEDRONATE 35 MG TABLET PO SCH (07:30)
[2017-08-25] MEDS: MAGNESIUM OXIDE 400 MG TABLET PO SCH ×3 (08:48→21:24)
[2017-08-25] MEDS: ASPIRIN EC 81 MG TABLET PO SCH (08:48)
[2017-08-25] MEDS: TAMSULOSIN 0.4 MG CAPSULE PO SCH (08:48)
[2017-08-25] MEDS: metOLazone 2.5 MG TABLET PO SCH (08:48)
[2017-08-25] MEDS: MONTELUKAST 10 MG TABLET PO SCH (08:48)
[2017-08-25] MEDS: glipiZIDE 5 MG TABLET PO SCH ×2 (08:48→16:15)
[2017-08-25] MEDS: methIMAzole 10 MG TABLET PO SCH (08:48)
[2017-08-25] MEDS: miSOPROStol 200 MCG TABLET PO SCH ×2 (08:48→21:24)
[2017-08-25] MEDS: PANTOPRAZOLE 40 MG TABLET PO SCH (08:48)
[2017-08-25] MEDS: DOCUSATE SODIUM 100 MG CAPSULE PO SCH ×2 (08:49→21:24)
[2017-08-25] MEDS: INSULIN REGULAR 100 UNIT/ML SUBCUT SCH ×4 (08:49→22:13)
[2017-08-25] MEDS: METOPROLOL TARTRATE 25 MG TABLET PO SCH ×2 (08:49→22:13)
[2017-08-25] MEDS: NOREPINEPHRINE 8 MG in SODIUM CHLORIDE 0.9% 242 ML IV SCH (08:50)
[2017-08-25] MEDS: cefTRIAXone 2,000 MG in SYRINGE 1 EACH IV SCH (08:50)
[2017-08-25] MEDS: FLUTICASONE/SALMETEROL 500-50 DISKUS 14 DOSE INH SCH ×2 (08:50→22:10)
[2017-08-25] MEDS: ZINC OXIDE PASTE 113 GM TUBE TOP SCH ×2 (08:51→22:10)
[2017-08-25] MEDS: THEOPHYLLINE ER (24 HR) 200 MG CAPSULE PO SCH (08:51)
[2017-08-25 09:08] LABS: Basophils % 0.2 % (0.0-0.8); Eosinophils # 0.1 10*3/uL (0.0-0.87); Eosinophils % 0.5 % (0.00-10.9); Hematocrit 29.3 VOL% (42.0-52.0); Hemoglobin 9.6 GM/DL (14.0-18.0); Immature Granulocytes % 2.4 %; Immature Granulocytes Absolute 0.31 #; Lymphocytes # 1.7 10*3/uL (1.4-4.0); Lymphocytes % 12.9 % (21.2-54.2); Mean Corpuscular HGB Conc 32.8 GM/DL (32-36); Mean Corpuscular Hemoglobin 31 PG (27-34); Mean Corpuscular Volume 94.2 FL (87-102); Monocytes # 0.7 10*3/uL (0.11-0.8); Monocytes % 5.7 % (1.7-12.7); Neutrophils # 10.2 10*3/uL (1.4-7.4); Neutrophils % 78.3 % (38.7-73.9); Platelet Count 299 T/CUMM (130-400); Red Blood Count 3.11 MC/CUMM (3.8-5.5); Red Cell Distribution Width 14.3 % (9.3-17.3); White Blood Count 13.1 T/CUMM (4-12)
[2017-08-25] MEDS: ENOXAPARIN 40 MG/0.4 ML SYRINGE SUBCUT SCH (09:12)
[2017-08-25] MEDS: CLINDAMYCIN INJ 300 MG in PREMIX 1 EACH IV SCH ×2 (09:13→18:47)
[2017-08-25] MEDS: POTASSIUM CHLORIDE 20 MEQ TABLET PO PRN (10:17)
[2017-08-26] MEDS: ALBUTEROL/IPRATROPIUM 3 ML NEB RESP TX SCH ×4 (00:12→19:36)
[2017-08-26] MEDS: LACTATED RINGERS 1,000 ML IV SCH ×5 (00:22→23:03)
[2017-08-26] MEDS: CLINDAMYCIN INJ 300 MG in PREMIX 1 EACH IV SCH ×2 (02:20→10:05)
[2017-08-26] MEDS ORDERED: PIPERACILLIN/TAZOBACTAM 3,375 MG in SODIUM CHLORIDE 0.9% 100 ML IV SCH (09:00)
[2017-08-26] MEDS ORDERED: MEROPENEM 1,000 MG in SYRINGE 1 EACH IV SCH (09:30)
[2017-08-26] MEDS: cefTRIAXone 2,000 MG in SYRINGE 1 EACH IV SCH (09:43)
[2017-08-26] MEDS: ENOXAPARIN 40 MG/0.4 ML SYRINGE SUBCUT SCH (09:56)
[2017-08-26] MEDS: INSULIN REGULAR 100 UNIT/ML SUBCUT SCH ×4 (09:56→22:28)
[2017-08-26] MEDS: MAGNESIUM OXIDE 400 MG TABLET PO SCH ×3 (09:57→21:14)
[2017-08-26] MEDS: THEOPHYLLINE ER (24 HR) 200 MG CAPSULE PO SCH (09:57)
[2017-08-26] MEDS: glipiZIDE 5 MG TABLET PO SCH ×2 (09:57→15:42)
[2017-08-26] MEDS: methIMAzole 10 MG TABLET PO SCH (09:57)
[2017-08-26] MEDS: miSOPROStol 200 MCG TABLET PO SCH ×2 (09:57→21:14)
[2017-08-26] MEDS: MONTELUKAST 10 MG TABLET PO SCH (09:57)
[2017-08-26] MEDS: DOCUSATE SODIUM 100 MG CAPSULE PO SCH ×2 (09:57→21:14)
[2017-08-26] MEDS: metOLazone 2.5 MG TABLET PO SCH (09:57)
[2017-08-26] MEDS: FLUTICASONE/SALMETEROL 500-50 DISKUS 14 DOSE INH SCH ×2 (09:58→22:27)
[2017-08-26] MEDS: TAMSULOSIN 0.4 MG CAPSULE PO SCH (09:58)
[2017-08-26] MEDS: ZINC OXIDE PASTE 113 GM TUBE TOP SCH ×2 (09:58→22:27)
[2017-08-26] MEDS: ASPIRIN EC 81 MG TABLET PO SCH (09:58)
[2017-08-26] MEDS: PANTOPRAZOLE 40 MG TABLET PO SCH (09:58)
[2017-08-26] MEDS: MEROPENEM 1,000 MG in SYRINGE 1 EACH IV SCH ×2 (09:59→16:33)
[2017-08-26] MEDS: METOPROLOL TARTRATE 25 MG TABLET PO SCH ×2 (10:04→22:28)
[2017-08-26] MEDS: PENICILLIN G POTASSIUM INJ 2,000,000 UNIT in SODIUM CHLORIDE 0.9% 100 ML IV SCH ×2 (17:02→22:58)
[2017-08-27] MEDS: ALBUTEROL/IPRATROPIUM 3 ML NEB RESP TX SCH ×4 (00:53→20:21)
[2017-08-27] MEDS: MEROPENEM 1,000 MG in SYRINGE 1 EACH IV SCH ×3 (01:26→16:41)
[2017-08-27] MEDS: LACTATED RINGERS 1,000 ML IV SCH ×3 (01:29→20:10)
[2017-08-27] MEDS: PENICILLIN G POTASSIUM INJ 2,000,000 UNIT in SODIUM CHLORIDE 0.9% 100 ML IV SCH ×3 (05:14→16:44)
[2017-08-27] MEDS: ENOXAPARIN 40 MG/0.4 ML SYRINGE SUBCUT SCH (09:33)
[2017-08-27] MEDS: MAGNESIUM OXIDE 400 MG TABLET PO SCH ×3 (09:34→21:06)
[2017-08-27] MEDS: metOLazone 2.5 MG TABLET PO SCH (09:34)
[2017-08-27] MEDS: miSOPROStol 200 MCG TABLET PO SCH ×2 (09:34→21:06)
[2017-08-27] MEDS: THEOPHYLLINE ER (24 HR) 200 MG CAPSULE PO SCH (09:34)
[2017-08-27] MEDS: MONTELUKAST 10 MG TABLET PO SCH (09:34)
[2017-08-27] MEDS: methIMAzole 10 MG TABLET PO SCH (09:34)
[2017-08-27] MEDS: TAMSULOSIN 0.4 MG CAPSULE PO SCH (09:35)
[2017-08-27] MEDS: ASPIRIN EC 81 MG TABLET PO SCH (09:35)
[2017-08-27] MEDS: FLUTICASONE/SALMETEROL 500-50 DISKUS 14 DOSE INH SCH ×2 (09:35→23:14)
[2017-08-27] MEDS: PANTOPRAZOLE 40 MG TABLET PO SCH (09:35)
[2017-08-27] MEDS: INSULIN REGULAR 100 UNIT/ML SUBCUT SCH ×4 (09:35→23:15)
[2017-08-27] MEDS: METOPROLOL TARTRATE 25 MG TABLET PO SCH (09:35)
[2017-08-27] MEDS: DOCUSATE SODIUM 100 MG CAPSULE PO SCH ×2 (09:35→21:06)
[2017-08-27] MEDS: ZINC OXIDE PASTE 113 GM TUBE TOP SCH ×2 (09:35→23:14)
[2017-08-27] MEDS: glipiZIDE 5 MG TABLET PO SCH (09:43)
[2017-08-27 12:50] LABS: Apearance,Urine CLEAR (Clear); Bacteria,Urine Occasional /HPF (Few); Bilirubin,Urine Negative (Negative); Blood, Urine Moderate mg/dL (Negative); Glucose,Urine (UA) 150 mg/dL (Negative); Ketones,Urine Negative (Negative); Mucus,Urine Occasional /LPF (Occasional); Nitrite,Urine Negative (Negative); Protein,Urine Negative; RBC,Urine 48 /HPF (0-4); Urine Color Straw (Yellow); Urine Specific Gravity 1.005 (1.001-1.035); Urine Urobilinogen < 2.0 EU/DL (0.2-1.0); WBC,Urine 6 /HPF (0-6)
[2017-08-27] MEDS: VANCOMYCIN INJ 1,000 MG in SODIUM CHLORIDE 0.9% 250 ML IV SCH ×2 (13:01→21:05)
[2017-08-28] MEDS: METOPROLOL TARTRATE 25 MG TABLET PO SCH ×3 (00:05→21:30)
[2017-08-28] MEDS: PENICILLIN G POTASSIUM INJ 2,000,000 UNIT in SODIUM CHLORIDE 0.9% 100 ML IV SCH ×2 (00:16→06:10)
[2017-08-28] MEDS: ALBUTEROL/IPRATROPIUM 3 ML NEB RESP TX SCH ×6 (01:16→19:56)
[2017-08-28] MEDS: MEROPENEM 1,000 MG in SYRINGE 1 EACH IV SCH ×3 (02:30→16:39)
[2017-08-28] MEDS: LACTATED RINGERS 1,000 ML IV SCH ×3 (03:38→18:53)
[2017-08-28] MEDS: VANCOMYCIN INJ 1,000 MG in SODIUM CHLORIDE 0.9% 250 ML IV SCH (03:55)
[2017-08-28 04:29] LABS: Basophils % 0.6 % (0.0-0.8); Eosinophils # 0.1 10*3/uL (0.0-0.87); Eosinophils % 1.3 % (0.00-10.9); Hematocrit 30.7 VOL% (42.0-52.0); Hemoglobin 10.2 GM/DL (14.0-18.0); Immature Granulocytes % 7.1 %; Immature Granulocytes Absolute 0.49 #; Lymphocytes % 15.2 % (21.2-54.2); Mean Corpuscular HGB Conc 33.2 GM/DL (32-36); Mean Corpuscular Hemoglobin 31 PG (27-34); Mean Platelet Volume 10.1 FL (9.6-12.0); Monocytes # 0.6 10*3/uL (0.11-0.8); Monocytes % 9.2 % (1.7-12.7); Neutrophils # 4.6 10*3/uL (1.4-7.4); Neutrophils % 66.6 % (38.7-73.9); Platelet Count 318 T/CUMM (130-400); White Blood Count 6.9 T/CUMM (4-12)
[2017-08-28 04:52] LABS: Calcium 8.1 MG/DL (8.5-10.1); Osmolality,Calculated 275.5 MOS/KG (273-304); Potassium 2.9 MMOL/L (3.5-5.1)
[2017-08-28 05:07] LABS: Band Neutrophils 3 % (0-10); Eosinophils 1 % (0-10); Giant Platelets Few; Hypochromasia Slight; Lymphocytes 12 % (20-55); Myelocytes 1 %; Platelet Estimate Adequate; Segmented Neutrophils 77 % (50-85); Total Cells Counted 100
[2017-08-28] MEDS: POTASSIUM CHLORIDE 20 MEQ TABLET PO PRN ×2 (06:11→08:40)
[2017-08-28] MEDS: metOLazone 2.5 MG TABLET PO SCH (08:40)
[2017-08-28] MEDS: MAGNESIUM OXIDE 400 MG TABLET PO SCH ×3 (08:40→21:29)
[2017-08-28] MEDS: ASPIRIN EC 81 MG TABLET PO SCH (08:40)
[2017-08-28] MEDS: ENOXAPARIN 40 MG/0.4 ML SYRINGE SUBCUT SCH (08:40)
[2017-08-28] MEDS: miSOPROStol 200 MCG TABLET PO SCH ×2 (08:40→21:29)
[2017-08-28] MEDS: THEOPHYLLINE ER (24 HR) 200 MG CAPSULE PO SCH (08:40)
[2017-08-28] MEDS: methIMAzole 10 MG TABLET PO SCH (08:40)
[2017-08-28] MEDS: PANTOPRAZOLE 40 MG TABLET PO SCH (08:40)
[2017-08-28] MEDS: TAMSULOSIN 0.4 MG CAPSULE PO SCH (08:40)
[2017-08-28] MEDS: MONTELUKAST 10 MG TABLET PO SCH (08:40)
[2017-08-28] MEDS: DOCUSATE SODIUM 100 MG CAPSULE PO SCH ×3 (08:40→21:30)
[2017-08-28] MEDS: INSULIN REGULAR 100 UNIT/ML SUBCUT SCH ×4 (08:41→21:30)
[2017-08-28] MEDS: FLUTICASONE/SALMETEROL 500-50 DISKUS 14 DOSE INH SCH ×2 (08:41→21:30)
[2017-08-28] MEDS: ZINC OXIDE PASTE 113 GM TUBE TOP SCH ×2 (08:41→21:30)
[2017-08-28 15:26] LABS: Apearance,Urine CLEAR (Clear); Bilirubin,Urine Negative (Negative); Blood, Urine Small mg/dL (Negative); Glucose,Urine (UA) Negative (Negative); Ketones,Urine Negative (Negative); Nitrite,Urine Negative (Negative); Protein,Urine Negative; RBC,Urine 2 /HPF (0-4); Urine Color Straw (Yellow); Urine Specific Gravity 1.005 (1.001-1.035); Urine Urobilinogen < 2.0 EU/DL (0.2-1.0); WBC,Urine 2 /HPF (0-6)
[2017-08-28] MEDS: CLORAZEPATE 7.5 MG TABLET PO PRN (21:29)
[2017-08-28] MEDS: ACETAMINOPHEN 325 MG TABLET PO PRN (21:29)
[2017-08-29] MEDS: ALBUTEROL/IPRATROPIUM 3 ML NEB RESP TX SCH ×4 (00:46→19:50)
[2017-08-29] MEDS: MEROPENEM 1,000 MG in SYRINGE 1 EACH IV SCH ×3 (01:44→17:20)
[2017-08-29] MEDS: ENOXAPARIN 40 MG/0.4 ML SYRINGE SUBCUT SCH (08:41)
[2017-08-29] MEDS: miSOPROStol 200 MCG TABLET PO SCH ×2 (08:42→21:22)
[2017-08-29] MEDS: MAGNESIUM OXIDE 400 MG TABLET PO SCH ×3 (08:42→21:20)
[2017-08-29] MEDS: TAMSULOSIN 0.4 MG CAPSULE PO SCH (08:42)
[2017-08-29] MEDS: METOPROLOL TARTRATE 25 MG TABLET PO SCH ×2 (08:42→21:22)
[2017-08-29] MEDS: MONTELUKAST 10 MG TABLET PO SCH (08:42)
[2017-08-29] MEDS: methIMAzole 10 MG TABLET PO SCH (08:42)
[2017-08-29] MEDS: ASPIRIN EC 81 MG TABLET PO SCH (08:42)
[2017-08-29] MEDS: THEOPHYLLINE ER (24 HR) 200 MG CAPSULE PO SCH (08:42)
[2017-08-29] MEDS: metOLazone 2.5 MG TABLET PO SCH (08:42)
[2017-08-29] MEDS: PANTOPRAZOLE 40 MG TABLET PO SCH (08:42)
[2017-08-29] MEDS: INSULIN REGULAR 100 UNIT/ML SUBCUT SCH ×4 (08:43→21:22)
[2017-08-29] MEDS: FLUTICASONE/SALMETEROL 500-50 DISKUS 14 DOSE INH SCH ×2 (08:43→21:22)
[2017-08-29] MEDS: ZINC OXIDE PASTE 113 GM TUBE TOP SCH ×2 (08:43→21:22)
[2017-08-29] MEDS: DOCUSATE SODIUM 100 MG CAPSULE PO SCH ×3 (09:19→21:24)
[2017-08-29] MEDS: LACTATED RINGERS 1,000 ML IV SCH (10:50)
[2017-08-29 15:05] LABS: Calcium 8.3 MG/DL (8.5-10.1); Osmolality,Calculated 275.4 MOS/KG (273-304); Potassium 3.3 MMOL/L (3.5-5.1)
[2017-08-29] MEDS: ACETAMINOPHEN 325 MG TABLET PO PRN (21:21)
[2017-08-29] MEDS: CLORAZEPATE 7.5 MG TABLET PO PRN (21:22)
[2017-08-30] MEDS: ALBUTEROL/IPRATROPIUM 3 ML NEB RESP TX SCH ×4 (01:14→20:00)
[2017-08-30] MEDS: MEROPENEM 1,000 MG in SYRINGE 1 EACH IV SCH ×3 (01:20→16:39)
[2017-08-30 03:43] LABS: Basophils % 0.3 % (0.0-0.8); Eosinophils # 0.2 10*3/uL (0.0-0.87); Eosinophils % 2.3 % (0.00-10.9); Hematocrit 29.3 VOL% (42.0-52.0); Hemoglobin 9.9 GM/DL (14.0-18.0); Immature Granulocytes % 9.8 %; Immature Granulocytes Absolute 0.63 #; Lymphocytes # 1.7 10*3/uL (1.4-4.0); Lymphocytes % 25.6 % (21.2-54.2); Mean Corpuscular HGB Conc 33.8 GM/DL (32-36); Mean Corpuscular Hemoglobin 31 PG (27-34); Mean Corpuscular Volume 90.2 FL (87-102); Mean Platelet Volume 8.4 FL (9.6-12.0); Monocytes # 0.8 10*3/uL (0.11-0.8); Neutrophils # 3.2 10*3/uL (1.4-7.4); Platelet Count 439 T/CUMM (130-400); Red Blood Count 3.25 MC/CUMM (3.8-5.5); White Blood Count 6.4 T/CUMM (4-12)
[2017-08-30 04:14] LABS: Calcium 8.6 MG/DL (8.5-10.1); Osmolality,Calculated 272.4 MOS/KG (273-304); Potassium 2.8 MMOL/L (3.5-5.1)
[2017-08-30] MEDS: POTASSIUM CHLORIDE 20 MEQ TABLET PO PRN ×4 (04:33→09:30)
[2017-08-30 04:53] LABS: Band Neutrophils 5 % (0-10); Eosinophils 2 % (0-10); Hypochromasia Slight; Lymphocytes 24 % (20-55); Metamyelocytes 2 %; Segmented Neutrophils 58 % (50-85); Total Cells Counted 100
[2017-08-30 04:54] LABS: Atypical Lymphocytes Few; Microcytosis 1+
[2017-08-30] MEDS: INSULIN REGULAR 100 UNIT/ML SUBCUT SCH ×4 (08:26→22:14)
[2017-08-30] MEDS: ENOXAPARIN 40 MG/0.4 ML SYRINGE SUBCUT SCH (09:14)
[2017-08-30] MEDS: ASPIRIN EC 81 MG TABLET PO SCH (09:15)
[2017-08-30] MEDS: TAMSULOSIN 0.4 MG CAPSULE PO SCH (09:15)
[2017-08-30] MEDS: miSOPROStol 200 MCG TABLET PO SCH ×2 (09:15→20:49)
[2017-08-30] MEDS: METOPROLOL TARTRATE 25 MG TABLET PO SCH ×2 (09:15→20:48)
[2017-08-30] MEDS: MAGNESIUM OXIDE 400 MG TABLET PO SCH ×3 (09:15→20:48)
[2017-08-30] MEDS: methIMAzole 10 MG TABLET PO SCH (09:15)
[2017-08-30] MEDS: metOLazone 2.5 MG TABLET PO SCH (09:15)
[2017-08-30] MEDS: THEOPHYLLINE ER (24 HR) 200 MG CAPSULE PO SCH (09:15)
[2017-08-30] MEDS: MONTELUKAST 10 MG TABLET PO SCH (09:15)
[2017-08-30] MEDS: PANTOPRAZOLE 40 MG TABLET PO SCH (09:15)
[2017-08-30] MEDS: DOCUSATE SODIUM 100 MG CAPSULE PO SCH ×2 (09:15→20:49)
[2017-08-30] MEDS: FLUTICASONE/SALMETEROL 500-50 DISKUS 14 DOSE INH SCH ×2 (09:16→20:56)
[2017-08-30] MEDS: ZINC OXIDE PASTE 113 GM TUBE TOP SCH ×2 (09:16→21:33)
[2017-08-30] MEDS ORDERED: POTASSIUM CHLORIDE 20 MEQ TABLET PO ONE (09:57)
[2017-08-30] MEDS: SPIRONOLACTONE 25 MG TABLET PO SCH (12:43)
[2017-08-30 17:52] LABS: Calcium 8.8 MG/DL (8.5-10.1); Osmolality,Calculated 272.5 MOS/KG (273-304); Potassium 3.8 MMOL/L (3.5-5.1)
[2017-08-30] MEDS: ONDANSETRON 4 MG/2 ML VIAL IV PRN (22:12)
[2017-08-30] MEDS: METOPROLOL TARTRATE 5 MG/5 ML VIAL IV SCH (22:13)
[2017-08-31] MEDS: diphenhydrAMINE 50 MG/1 ML VIAL IV PRN ×2 (00:35→20:38)
[2017-08-31] MEDS: ALBUTEROL/IPRATROPIUM 3 ML NEB RESP TX SCH ×4 (01:11→19:28)
[2017-08-31] MEDS: MEROPENEM 1,000 MG in SYRINGE 1 EACH IV SCH (02:50)
[2017-08-31 03:50] LABS: Basophils % 0.4 % (0.0-0.8); Eosinophils # 0.2 10*3/uL (0.0-0.87); Eosinophils % 1.9 % (0.00-10.9); Hematocrit 29.4 VOL% (42.0-52.0); Immature Granulocytes % 9.7 %; Immature Granulocytes Absolute 0.78 #; Lymphocytes # 1.9 10*3/uL (1.4-4.0); Lymphocytes % 23.6 % (21.2-54.2); Mean Corpuscular Hemoglobin 31 PG (27-34); Mean Corpuscular Volume 90.5 FL (87-102); Mean Platelet Volume 8.6 FL (9.6-12.0); Monocytes # 0.8 10*3/uL (0.11-0.8); Monocytes % 10.4 % (1.7-12.7); Neutrophils # 4.3 10*3/uL (1.4-7.4); Platelet Count 495 T/CUMM (130-400); Red Blood Count 3.25 MC/CUMM (3.8-5.5); Red Cell Distribution Width 13.9 % (9.3-17.3)
[2017-08-31] MEDS: METOPROLOL TARTRATE 5 MG/5 ML VIAL IV SCH ×6 (04:11→23:32)
[2017-08-31 04:36] LABS: Calcium 8.7 MG/DL (8.5-10.1); Osmolality,Calculated 275.4 MOS/KG (273-304); Potassium 3.3 MMOL/L (3.5-5.1)
[2017-08-31 05:42] LABS: Lymphocytes 25 % (20-55); Myelocytes 1 %
[2017-08-31 05:44] LABS: Atypical Lymphocytes Few; Eosinophils 3 % (0-10); Hypochromasia 1+; Segmented Neutrophils 54 % (50-85)
[2017-08-31 05:45] LABS: Platelet Estimate Increased
[2017-08-31 05:47] LABS: Polychromasia Few
[2017-08-31 05:48] LABS: Total Cells Counted 100
[2017-08-31] MEDS: INSULIN REGULAR 100 UNIT/ML SUBCUT SCH ×4 (08:13→20:01)
[2017-08-31] MEDS: FLUTICASONE/SALMETEROL 500-50 DISKUS 14 DOSE INH SCH ×2 (09:43→20:15)
[2017-08-31] MEDS: SPIRONOLACTONE 25 MG TABLET PO SCH (09:43)
[2017-08-31] MEDS: ENOXAPARIN 40 MG/0.4 ML SYRINGE SUBCUT SCH (09:43)
[2017-08-31] MEDS: PANTOPRAZOLE 40 MG TABLET PO SCH (09:44)
[2017-08-31] MEDS: ERGOCALCIFEROL 50,000 UNIT CAPSULE PO SCH (09:44)
[2017-08-31] MEDS: metOLazone 2.5 MG TABLET PO SCH (09:44)
[2017-08-31] MEDS: MAGNESIUM OXIDE 400 MG TABLET PO SCH ×3 (09:44→20:14)
[2017-08-31] MEDS: TAMSULOSIN 0.4 MG CAPSULE PO SCH (09:44)
[2017-08-31] MEDS: METOPROLOL TARTRATE 25 MG TABLET PO SCH ×2 (09:44→20:14)
[2017-08-31] MEDS: methIMAzole 10 MG TABLET PO SCH (09:44)
[2017-08-31] MEDS: MONTELUKAST 10 MG TABLET PO SCH (09:44)
[2017-08-31] MEDS: DOCUSATE SODIUM 100 MG CAPSULE PO SCH ×2 (09:44→20:17)
[2017-08-31] MEDS: THEOPHYLLINE ER (24 HR) 200 MG CAPSULE PO SCH (09:44)
[2017-08-31] MEDS: miSOPROStol 200 MCG TABLET PO SCH ×2 (09:44→20:14)
[2017-08-31] MEDS: ASPIRIN EC 81 MG TABLET PO SCH (09:44)
[2017-08-31] MEDS: ZINC OXIDE PASTE 113 GM TUBE TOP SCH ×2 (09:49→20:23)
[2017-08-31] MEDS: LACTATED RINGERS 1,000 ML IV SCH ×2 (13:08→13:17)
[2017-08-31] MEDS: CEFEPIME 1,000 MG in SYRINGE 1 EACH IV SCH ×2 (13:18→22:49)
[2017-08-31] MEDS: GENTAMICIN INJ 320 MG in SODIUM CHLORIDE 0.9% 100 ML IV SCH (13:24)
[2017-08-31] MEDS: ONDANSETRON 4 MG/2 ML VIAL IV PRN (22:46)
[2017-09-01] MEDS: ALBUTEROL/IPRATROPIUM 3 ML NEB RESP TX SCH ×4 (00:39→19:43)
[2017-09-01] MEDS: ALBUTEROL 2.5 MG/3 ML NEB RESP TX PRN (04:05)
[2017-09-01] MEDS ORDERED: ONDANSETRON 4 MG/2 ML VIAL IV ONE (04:34)
[2017-09-01] MEDS: MORPHINE 4 MG/1 ML VIAL IV PRN (04:49)
[2017-09-01 05:00] LABS: Calcium 8.7 MG/DL (8.5-10.1); Osmolality,Calculated 275.4 MOS/KG (273-304); Potassium 3.2 MMOL/L (3.5-5.1)
[2017-09-01 05:42] LABS: Troponin I Only < 0.015 NG/ML (0.00-0.045)
[2017-09-01] MEDS: METOPROLOL TARTRATE 5 MG/5 ML VIAL IV SCH ×3 (06:30→17:02)
[2017-09-01] MEDS: ENOXAPARIN 40 MG/0.4 ML SYRINGE SUBCUT SCH (09:04)
[2017-09-01] MEDS: INSULIN REGULAR 100 UNIT/ML SUBCUT SCH ×4 (09:04→21:31)
[2017-09-01] MEDS: ASPIRIN EC 81 MG TABLET PO SCH (09:05)
[2017-09-01] MEDS: MAGNESIUM OXIDE 400 MG TABLET PO SCH ×3 (09:05→20:46)
[2017-09-01] MEDS: SPIRONOLACTONE 25 MG TABLET PO SCH (09:05)
[2017-09-01] MEDS: THEOPHYLLINE ER (24 HR) 200 MG CAPSULE PO SCH (09:05)
[2017-09-01] MEDS: TAMSULOSIN 0.4 MG CAPSULE PO SCH (09:05)
[2017-09-01] MEDS: miSOPROStol 200 MCG TABLET PO SCH ×2 (09:05→20:46)
[2017-09-01] MEDS: PANTOPRAZOLE 40 MG TABLET PO SCH (09:05)
[2017-09-01] MEDS: DOCUSATE SODIUM 100 MG CAPSULE PO SCH ×2 (09:05→20:46)
[2017-09-01] MEDS: metOLazone 2.5 MG TABLET PO SCH (09:05)
[2017-09-01] MEDS: METOPROLOL TARTRATE 25 MG TABLET PO SCH ×2 (09:05→20:45)
[2017-09-01] MEDS: MONTELUKAST 10 MG TABLET PO SCH (09:05)
[2017-09-01] MEDS: methIMAzole 10 MG TABLET PO SCH (09:05)
[2017-09-01] MEDS: ZINC OXIDE PASTE 113 GM TUBE TOP SCH ×2 (09:06→20:46)
[2017-09-01] MEDS: FLUTICASONE/SALMETEROL 500-50 DISKUS 14 DOSE INH SCH ×2 (09:06→20:46)
[2017-09-01] MEDS: CEFEPIME 1,000 MG in SYRINGE 1 EACH IV SCH (12:02)
[2017-09-01] MEDS: GENTAMICIN INJ 320 MG in SODIUM CHLORIDE 0.9% 100 ML IV SCH (12:06)
[2017-09-01] MEDS: ONDANSETRON 4 MG/2 ML VIAL IV PRN (15:44)
[2017-09-02] MEDS: ALBUTEROL/IPRATROPIUM 3 ML NEB RESP TX SCH ×4 (00:10→19:30)
[2017-09-02] MEDS: LACTATED RINGERS 1,000 ML IV SCH ×2 (00:15→20:09)
[2017-09-02] MEDS: CEFEPIME 1,000 MG in SYRINGE 1 EACH IV SCH ×3 (00:15→22:31)
[2017-09-02] MEDS: METOPROLOL TARTRATE 5 MG/5 ML VIAL IV SCH ×2 (00:16→05:09)
[2017-09-02 03:25] LABS: Calcium 8.5 MG/DL (8.5-10.1); Osmolality,Calculated 272.7 MOS/KG (273-304)
[2017-09-02] MEDS: POTASSIUM CHLORIDE 20 MEQ TABLET PO PRN ×3 (04:38→21:05)
[2017-09-02] MEDS: MORPHINE 4 MG/1 ML VIAL IV PRN ×2 (05:09→11:58)
[2017-09-02] MEDS: diphenhydrAMINE 50 MG/1 ML VIAL IV PRN ×2 (05:10→22:36)
[2017-09-02] MEDS: INSULIN REGULAR 100 UNIT/ML SUBCUT SCH ×4 (10:12→21:07)
[2017-09-02] MEDS: PANTOPRAZOLE 40 MG TABLET PO SCH ×3 (10:12→21:06)
[2017-09-02] MEDS: DOCUSATE SODIUM 100 MG CAPSULE PO SCH ×2 (10:17→21:06)
[2017-09-02] MEDS: METOPROLOL TARTRATE 25 MG TABLET PO SCH ×2 (10:17→21:06)
[2017-09-02] MEDS: MONTELUKAST 10 MG TABLET PO SCH (10:18)
[2017-09-02] MEDS: ASPIRIN EC 81 MG TABLET PO SCH (10:18)
[2017-09-02] MEDS: MAGNESIUM OXIDE 400 MG TABLET PO SCH ×3 (10:18→21:05)
[2017-09-02] MEDS: methIMAzole 10 MG TABLET PO SCH (10:19)
[2017-09-02] MEDS: metOLazone 2.5 MG TABLET PO SCH (10:19)
[2017-09-02] MEDS: ENOXAPARIN 40 MG/0.4 ML SYRINGE SUBCUT SCH (10:21)
[2017-09-02] MEDS: SPIRONOLACTONE 25 MG TABLET PO SCH (10:21)
[2017-09-02] MEDS: FLUTICASONE/SALMETEROL 500-50 DISKUS 14 DOSE INH SCH ×2 (10:22→21:07)
[2017-09-02] MEDS: miSOPROStol 200 MCG TABLET PO SCH ×2 (10:34→21:06)
[2017-09-02] MEDS: THEOPHYLLINE ER (24 HR) 200 MG CAPSULE PO SCH (10:34)
[2017-09-02] MEDS ORDERED: MAGNESIUM SULF RIDER 4 GM in PREMIX 1 EACH IV PRN (11:18)
[2017-09-02] MEDS ORDERED: MAGNESIUM SULF RIDER 2 GM in PREMIX 1 EACH IV PRN (11:18)
[2017-09-02] MEDS ORDERED: NITROGLYCERIN SL 0.4 MG TABLET SL PRN (11:20)
[2017-09-02] MEDS: NYSTATIN 500,000 UNIT/5 ML UDCUP SWISH/SWAL SCH ×2 (11:40→14:15)
[2017-09-02] MEDS: FLUCONAZOLE INJ 200 MG in PREMIX 1 EACH IV SCH (11:47)
[2017-09-02] MEDS: ONDANSETRON 4 MG/2 ML VIAL IV PRN (11:57)
[2017-09-02] MEDS: GENTAMICIN INJ 320 MG in SODIUM CHLORIDE 0.9% 100 ML IV SCH (13:24)
[2017-09-02] MEDS: ZINC OXIDE PASTE 113 GM TUBE TOP SCH ×2 (13:24→21:06)
[2017-09-02] MEDS: POTASSIUM CHLORIDE RIDER 10 MEQ in PREMIX 1 EACH IV PRN ×2 (15:23→17:37)
[2017-09-02 20:35] LABS: Potassium 3.4 MMOL/L (3.5-5.1)
[2017-09-02] MEDS: TAMSULOSIN 0.4 MG CAPSULE PO SCH (21:05)
[2017-09-03] MEDS: ALBUTEROL/IPRATROPIUM 3 ML NEB RESP TX SCH ×5 (00:55→20:45)
[2017-09-03 05:03] LABS: Basophils # 0.1 10*3/uL (0.0-0.2); Basophils % 0.9 % (0.0-0.8); Eosinophils # 0.2 10*3/uL (0.0-0.87); Eosinophils % 1.6 % (0.00-10.9); Hematocrit 31.7 VOL% (42.0-52.0); Hemoglobin 10.5 GM/DL (14.0-18.0); Immature Granulocytes % 5.6 %; Lymphocytes # 2.1 10*3/uL (1.4-4.0); Mean Corpuscular HGB Conc 33.1 GM/DL (32-36); Mean Corpuscular Hemoglobin 31 PG (27-34); Mean Platelet Volume 9.3 FL (9.6-12.0); Monocytes # 0.9 10*3/uL (0.11-0.8); Monocytes % 8.5 % (1.7-12.7); Neutrophils % 64.4 % (38.7-73.9); Platelet Count 595 T/CUMM (130-400); Red Blood Count 3.41 MC/CUMM (3.8-5.5); Red Cell Distribution Width 14.3 % (9.3-17.3); White Blood Count 10.8 T/CUMM (4-12)
[2017-09-03 05:16] LABS: Calcium 8.4 MG/DL (8.5-10.1); Potassium 3.3 MMOL/L (3.5-5.1)
[2017-09-03 05:27] LABS: Band Neutrophils 1 % (0-10); Eosinophils 3 % (0-10); Hypochromasia 1+; Lymphocytes 14 % (20-55); Platelet Estimate Increased; Segmented Neutrophils 67 % (50-85); Total Cells Counted 100
[2017-09-03 05:28] LABS: Microcytosis Slight; Ovalocytes Slight
[2017-09-03] MEDS: INSULIN REGULAR 100 UNIT/ML SUBCUT SCH ×4 (08:48→21:40)
[2017-09-03] MEDS: METOPROLOL TARTRATE 25 MG TABLET PO SCH (08:49)
[2017-09-03] MEDS: TAMSULOSIN 0.4 MG CAPSULE PO SCH (08:50)
[2017-09-03] MEDS: PANTOPRAZOLE 40 MG TABLET PO SCH ×2 (08:50→22:24)
[2017-09-03] MEDS: THEOPHYLLINE ER (24 HR) 200 MG CAPSULE PO SCH (08:51)
[2017-09-03] MEDS: DOCUSATE SODIUM 100 MG CAPSULE PO SCH ×2 (08:51→22:24)
[2017-09-03] MEDS: miSOPROStol 200 MCG TABLET PO SCH ×2 (08:51→22:24)
[2017-09-03] MEDS: ENOXAPARIN 40 MG/0.4 ML SYRINGE SUBCUT SCH (08:51)
[2017-09-03] MEDS: MAGNESIUM OXIDE 400 MG TABLET PO SCH ×3 (08:51→22:23)
[2017-09-03] MEDS: methIMAzole 10 MG TABLET PO SCH (08:51)
[2017-09-03] MEDS: MONTELUKAST 10 MG TABLET PO SCH (08:51)
[2017-09-03] MEDS: ASPIRIN EC 81 MG TABLET PO SCH (08:51)
[2017-09-03] MEDS: ZINC OXIDE PASTE 113 GM TUBE TOP SCH ×2 (08:52→22:24)
[2017-09-03] MEDS: CEFEPIME 1,000 MG in SYRINGE 1 EACH IV SCH ×2 (10:52→22:24)
[2017-09-03] MEDS: FLUCONAZOLE INJ 200 MG in PREMIX 1 EACH IV SCH (10:53)
[2017-09-03] MEDS: CYPROHEPTADINE 4 MG TABLET PO SCH ×2 (10:53→22:24)
[2017-09-03] MEDS: SPIRONOLACTONE 25 MG TABLET PO SCH (10:54)
[2017-09-03] MEDS: ONDANSETRON 4 MG/2 ML VIAL IV PRN ×2 (10:55→20:20)
[2017-09-03] MEDS: FLUTICASONE/SALMETEROL 500-50 DISKUS 14 DOSE INH SCH ×2 (11:01→22:56)
[2017-09-03] MEDS ORDERED: SODIUM PHOSPHATE ENEMA 133 ML BOTTLE RECTAL ONE (11:08)
[2017-09-03] MEDS ORDERED: SODIUM PHOSPHATE ENEMA 133 ML BOTTLE RECTAL PRN (11:08)
[2017-09-03] MEDS ORDERED: SPIRONOLACTONE 25 MG TABLET PO SCH (11:30)
[2017-09-03] MEDS: GENTAMICIN INJ 320 MG in SODIUM CHLORIDE 0.9% 100 ML IV SCH (13:15)
[2017-09-03] MEDS: POTASSIUM CHLORIDE 20 MEQ TABLET PO PRN ×2 (13:16→15:49)
[2017-09-03] MEDS: POLYETHYLENE GLYCOL POWDER 17 GM PACK PO SCH (13:16)
[2017-09-03] MEDS: LACTATED RINGERS 1,000 ML IV SCH (16:14)
[2017-09-03] MEDS: BACITRACIN OINT 0.9 GM PACK TOP SCH (22:36)
[2017-09-03] MEDS ORDERED: METOPROLOL TARTRATE 25 MG TABLET PO ONE (23:00)
[2017-09-04] MEDS: ALBUTEROL/IPRATROPIUM 3 ML NEB RESP TX SCH ×4 (02:07→19:08)
[2017-09-04] MEDS: LACTATED RINGERS 1,000 ML IV SCH ×2 (04:21→19:53)
[2017-09-04 05:47] LABS: Osmolality,Calculated 271.8 MOS/KG (273-304); Potassium 3.5 MMOL/L (3.5-5.1)
[2017-09-04] MEDS: INSULIN REGULAR 100 UNIT/ML SUBCUT SCH ×4 (10:26→20:04)
[2017-09-04] MEDS: FLUCONAZOLE INJ 200 MG in PREMIX 1 EACH IV SCH (10:35)
[2017-09-04] MEDS: MAGNESIUM OXIDE 400 MG TABLET PO SCH ×3 (11:01→21:41)
[2017-09-04] MEDS: BACITRACIN OINT 0.9 GM PACK TOP SCH (11:01)
[2017-09-04] MEDS: MONTELUKAST 10 MG TABLET PO SCH (11:01)
[2017-09-04] MEDS: CYPROHEPTADINE 4 MG TABLET PO SCH ×2 (11:01→21:41)
[2017-09-04] MEDS: methIMAzole 10 MG TABLET PO SCH (11:01)
[2017-09-04] MEDS: THEOPHYLLINE ER (24 HR) 200 MG CAPSULE PO SCH (11:01)
[2017-09-04] MEDS: ASPIRIN EC 81 MG TABLET PO SCH (11:02)
[2017-09-04] MEDS: METOPROLOL TARTRATE 25 MG TABLET PO SCH (11:02)
[2017-09-04] MEDS: miSOPROStol 200 MCG TABLET PO SCH ×2 (11:02→21:41)
[2017-09-04] MEDS: PANTOPRAZOLE 40 MG TABLET PO SCH ×2 (11:02→21:41)
[2017-09-04] MEDS: SPIRONOLACTONE 25 MG TABLET PO SCH (11:03)
[2017-09-04] MEDS: DOCUSATE SODIUM 100 MG CAPSULE PO SCH ×2 (11:03→21:44)
[2017-09-04] MEDS: FLUTICASONE/SALMETEROL 500-50 DISKUS 14 DOSE INH SCH ×2 (11:04→21:43)
[2017-09-04] MEDS: ENOXAPARIN 40 MG/0.4 ML SYRINGE SUBCUT SCH (11:04)
[2017-09-04] MEDS: POLYETHYLENE GLYCOL POWDER 17 GM PACK PO SCH (11:04)
[2017-09-04] MEDS: GENTAMICIN INJ 320 MG in SODIUM CHLORIDE 0.9% 100 ML IV SCH (12:42)
[2017-09-04] MEDS: CEFEPIME 1,000 MG in SYRINGE 1 EACH IV SCH ×2 (16:20→23:47)
[2017-09-04] MEDS: ZINC OXIDE PASTE 113 GM TUBE TOP SCH ×2 (16:26→21:43)
[2017-09-04] MEDS: TAMSULOSIN 0.4 MG CAPSULE PO SCH ×2 (18:25→21:56)
[2017-09-04] MEDS: POTASSIUM CHLORIDE 20 MEQ TABLET PO PRN ×2 (21:42→23:47)
[2017-09-04] MEDS: ONDANSETRON 4 MG/2 ML VIAL IV PRN (21:52)
[2017-09-04] MEDS: diphenhydrAMINE 50 MG/1 ML VIAL IV PRN (23:47)
[2017-09-05] MEDS: ALBUTEROL/IPRATROPIUM 3 ML NEB RESP TX SCH ×4 (00:01→20:16)
[2017-09-05 04:58] LABS: Calcium 7.9 MG/DL (8.5-10.1); Osmolality,Calculated 271.8 MOS/KG (273-304)
[2017-09-05] MEDS: MAGNESIUM OXIDE 400 MG TABLET PO SCH ×3 (09:10→21:50)
[2017-09-05] MEDS: CYPROHEPTADINE 4 MG TABLET PO SCH ×2 (09:11→21:50)
[2017-09-05] MEDS: POTASSIUM CHLORIDE 20 MEQ TABLET PO PRN ×2 (09:11→11:16)
[2017-09-05] MEDS: MONTELUKAST 10 MG TABLET PO SCH (09:11)
[2017-09-05] MEDS: METOPROLOL TARTRATE 25 MG TABLET PO SCH (09:11)
[2017-09-05] MEDS: miSOPROStol 200 MCG TABLET PO SCH ×2 (09:12→21:50)
[2017-09-05] MEDS: ACETAMINOPHEN 325 MG TABLET PO PRN (09:12)
[2017-09-05] MEDS: PANTOPRAZOLE 40 MG TABLET PO SCH ×2 (09:12→21:52)
[2017-09-05] MEDS: SPIRONOLACTONE 25 MG TABLET PO SCH (09:13)
[2017-09-05] MEDS: methIMAzole 10 MG TABLET PO SCH (09:13)
[2017-09-05] MEDS: THEOPHYLLINE ER (24 HR) 200 MG CAPSULE PO SCH (09:13)
[2017-09-05] MEDS: BACITRACIN OINT 0.9 GM PACK TOP SCH (09:15)
[2017-09-05] MEDS: FLUTICASONE/SALMETEROL 500-50 DISKUS 14 DOSE INH SCH ×2 (09:16→21:49)
[2017-09-05] MEDS: INSULIN REGULAR 100 UNIT/ML SUBCUT SCH ×4 (09:16→21:50)
[2017-09-05] MEDS: ASPIRIN EC 81 MG TABLET PO SCH (09:16)
[2017-09-05] MEDS: DOCUSATE SODIUM 100 MG CAPSULE PO SCH ×2 (09:16→21:50)
[2017-09-05] MEDS: POLYETHYLENE GLYCOL POWDER 17 GM PACK PO SCH (09:17)
[2017-09-05] MEDS: FLUCONAZOLE INJ 200 MG in PREMIX 1 EACH IV SCH (11:24)
[2017-09-05] MEDS: CEFEPIME 1,000 MG in SYRINGE 1 EACH IV SCH (11:45)
[2017-09-05] MEDS ORDERED: CLORAZEPATE 7.5 MG TABLET PO PRN (11:57)
[2017-09-05] MEDS: ENOXAPARIN 40 MG/0.4 ML SYRINGE SUBCUT SCH (14:28)
[2017-09-05] MEDS: GENTAMICIN INJ 320 MG in SODIUM CHLORIDE 0.9% 100 ML IV SCH (14:30)
[2017-09-05] MEDS: TAMSULOSIN 0.4 MG CAPSULE PO SCH (17:20)
[2017-09-05] MEDS: ZINC OXIDE PASTE 113 GM TUBE TOP SCH ×2 (20:17→21:50)
[2017-09-05] MEDS: LACTATED RINGERS 1,000 ML IV SCH ×2 (20:17→21:58)
[2017-09-05] MEDS: POTASSIUM CHLORIDE 10 MEQ TABLET PO SCH (21:50)
[2017-09-06] MEDS: ALBUTEROL/IPRATROPIUM 3 ML NEB RESP TX SCH ×3 (01:35→13:30)
[2017-09-06 05:57] LABS: Hematocrit 29.7 VOL% (42.0-52.0); Red Blood Count 3.23 MC/CUMM (3.8-5.5); White Blood Count 7.3 T/CUMM (4-12)
[2017-09-06 05:58] LABS: Basophils # 0.1 10*3/uL (0.0-0.2); Basophils % 0.8 % (0.0-0.8); Eosinophils # 0.2 10*3/uL (0.0-0.87); Eosinophils % 2.5 % (0.00-10.9); Immature Granulocytes % 3.4 %; Immature Granulocytes Absolute 0.25 #; Lymphocytes # 2.8 10*3/uL (1.4-4.0); Lymphocytes % 38.4 % (21.2-54.2); Mean Corpuscular HGB Conc 33.7 GM/DL (32-36); Mean Corpuscular Hemoglobin 31 PG (27-34); Mean Platelet Volume 8.9 FL (9.6-12.0); Neutrophils % 40.9 % (38.7-73.9); Platelet Count 647 T/CUMM (130-400); Red Cell Distribution Width 14.2 % (9.3-17.3)
[2017-09-06 06:16] LABS: Osmolality,Calculated 273.5 MOS/KG (273-304); Potassium 3.2 MMOL/L (3.5-5.1)
[2017-09-06] MEDS: POTASSIUM CHLORIDE 20 MEQ TABLET PO PRN ×2 (06:42→08:18)
[2017-09-06] MEDS: miSOPROStol 200 MCG TABLET PO SCH (08:01)
[2017-09-06] MEDS: METOPROLOL TARTRATE 25 MG TABLET PO SCH (08:01)
[2017-09-06] MEDS: MONTELUKAST 10 MG TABLET PO SCH (08:01)
[2017-09-06] MEDS: THEOPHYLLINE ER (24 HR) 200 MG CAPSULE PO SCH (08:01)
[2017-09-06] MEDS: methIMAzole 10 MG TABLET PO SCH (08:01)
[2017-09-06] MEDS: ASPIRIN EC 81 MG TABLET PO SCH (08:01)
[2017-09-06] MEDS: CYPROHEPTADINE 4 MG TABLET PO SCH (08:01)
[2017-09-06] MEDS: MAGNESIUM OXIDE 400 MG TABLET PO SCH ×2 (08:01→15:44)
[2017-09-06] MEDS: SPIRONOLACTONE 25 MG TABLET PO SCH (08:01)
[2017-09-06] MEDS: PANTOPRAZOLE 40 MG TABLET PO SCH (08:01)
[2017-09-06] MEDS: POTASSIUM CHLORIDE 10 MEQ TABLET PO SCH (08:02)
[2017-09-06] MEDS: FLUTICASONE/SALMETEROL 500-50 DISKUS 14 DOSE INH SCH (08:03)
[2017-09-06] MEDS: ENOXAPARIN 40 MG/0.4 ML SYRINGE SUBCUT SCH (08:04)
[2017-09-06] MEDS: INSULIN REGULAR 100 UNIT/ML SUBCUT SCH ×2 (08:04→13:07)
[2017-09-06] MEDS: DOCUSATE SODIUM 100 MG CAPSULE PO SCH (08:10)
[2017-09-06] MEDS: POLYETHYLENE GLYCOL POWDER 17 GM PACK PO SCH (08:11)
[2017-09-06] MEDS: ZINC OXIDE PASTE 113 GM TUBE TOP SCH (08:11)
[2017-09-06] MEDS ORDERED: METOPROLOL TARTRATE 25 MG TABLET PO ONE (08:51)
[2017-09-06] MEDS ORDERED: SPIRONOLACTONE 25 MG TABLET PO SCH (09:59)
[2017-09-06 11:34] VITALS: BP 108/81
[2017-09-06] MEDS: GENTAMICIN INJ 320 MG in SODIUM CHLORIDE 0.9% 100 ML IV SCH (12:14)
[2017-09-06] MEDS: FLUCONAZOLE INJ 200 MG in PREMIX 1 EACH IV SCH (15:42)
[2017-09-06] MEDS: LACTATED RINGERS 1,000 ML IV SCH (15:43)
[2017-09-06] MEDS: BACITRACIN OINT 0.9 GM PACK TOP SCH (15:44)
== END 2017-09-06 15:30 | disposition home health service (06) | DRG 871 ==
LOC: SUATTDRO 07:18 → N.ICU 07:18 → N.TELEN 08-25 10:54
PROVIDERS: ADMIT Internal Medicine; ATTEND Internal Medicine

== ENCOUNTER 2018-02-10 16:11 | Inpatient (IN) ==
[2018-02-10] MEDS ORDERED: GLUCAGON 1 MG VIAL IM PRN (16:17)
[2018-02-10] MEDS ORDERED: DEXTROSE 50% 25 GM/50 ML SYRINGE IV PRN (16:17)
[2018-02-10 19:59] LABS: Thyroid Stimulating Hormone 0.57 uIU/ml (0.358-3.74)
[2018-02-10] MEDS: methylPREDNISolone SOD SUC 40 MG/1 ML VIAL IV SCH (20:00)
[2018-02-10] MEDS: POTASSIUM CHLORIDE INJ 30 MEQ in DEXTROSE 5% NACL 0.9% 1,000 ML IV SCH (20:00)
[2018-02-10] MEDS ORDERED: ALBUTEROL 2.5 MG/3 ML NEB RESP TX PRN (22:53)
[2018-02-10] MEDS ORDERED: LACTULOSE 20 GM/30 ML UDCUP PO PRN (22:53)
[2018-02-11] MEDS: POTASSIUM CHLORIDE INJ 30 MEQ in DEXTROSE 5% NACL 0.9% 1,000 ML IV SCH (01:55)
[2018-02-11 03:19] LABS: Apearance,Urine CLEAR (Clear); Bilirubin,Urine Negative (Negative); Blood, Urine Negative (Negative); Glucose,Urine (UA) Negative (Negative); Hyaline Casts,Urine 4 /LPF (0-3); Ketones,Urine 5 mg/dL (Negative); Mucus,Urine Occasional /LPF (Occasional); Nitrite,Urine Negative (Negative); Protein,Urine Negative; RBC,Urine 1 /HPF (0-4); Urine Color Yellow (Yellow); Urine Specific Gravity 1.011 (1.001-1.035); Urine Urobilinogen < 2.0 EU/DL (0.2-1.0); WBC,Urine 1 /HPF (0-6)
[2018-02-11] MEDS: methylPREDNISolone SOD SUC 40 MG/1 ML VIAL IV SCH ×3 (04:31→20:36)
[2018-02-11 05:02] LABS: Basophils % 0.2 % (0.0-0.8); Hemoglobin 12.5 GM/DL (14.0-18.0); Immature Granulocytes % 2.7 %; Immature Granulocytes Absolute 0.29 #; Lymphocytes % 8.7 % (21.2-54.2); Mean Corpuscular HGB Conc 34.7 GM/DL (32-36); Mean Corpuscular Hemoglobin 29 PG (27-34); Mean Corpuscular Volume 84.1 FL (87-102); Mean Platelet Volume 9.2 FL (9.6-12.0); Monocytes # 0.6 10*3/uL (0.11-0.8); Monocytes % 5.8 % (1.7-12.7); Neutrophils # 9.1 10*3/uL (1.4-7.4); Neutrophils % 82.6 % (38.7-73.9); Platelet Count 337 T/CUMM (130-400); Red Blood Count 4.28 MC/CUMM (3.8-5.5); Red Cell Distribution Width 13.8 % (9.3-17.3); White Blood Count 10.9 T/CUMM (4-12)
[2018-02-11 05:37] LABS: Calcium 8.2 MG/DL (8.5-10.1); Osmolality,Calculated 247.5 MOS/KG (273-304)
[2018-02-11 05:42] LABS: Potassium 2.4 MMOL/L (3.5-5.1)
[2018-02-11] MEDS: predniSONE 10 MG TABLET PO SCH ×2 (06:25→12:18)
[2018-02-11] MEDS: ALBUTEROL/IPRATROPIUM 3 ML NEB RESP TX SCH ×4 (07:11→19:27)
[2018-02-11] MEDS: IPRATROPIUM 500 MCG/2.5 ML NEB RESP TX SCH ×4 (07:48→19:27)
[2018-02-11] MEDS ORDERED: SPIRONOLACTONE 25 MG TABLET PO SCH (09:00)
[2018-02-11] MEDS ORDERED: IPRATROPIUM/ALBUTEROL INHALER INH SCH (09:00)
[2018-02-11] MEDS ORDERED: NON-FORMULARY MEDICATION (Tiotropium Inhalation 1 PUFF) INH SCH (09:00)
[2018-02-11] MEDS: THEOPHYLLINE ER (24 HR) 200 MG CAPSULE PO SCH (09:09)
[2018-02-11] MEDS: CYPROHEPTADINE 4 MG TABLET PO SCH ×2 (09:10→20:36)
[2018-02-11] MEDS: METOPROLOL TARTRATE 25 MG TABLET PO SCH ×2 (09:10→20:36)
[2018-02-11] MEDS: methIMAzole 10 MG TABLET PO SCH (09:10)
[2018-02-11] MEDS: ASPIRIN EC 81 MG TABLET PO SCH (09:10)
[2018-02-11] MEDS: MAGNESIUM OXIDE 400 MG TABLET PO SCH ×3 (09:10→20:36)
[2018-02-11] MEDS: metFORMIN 500 MG TABLET PO SCH ×2 (09:10→16:25)
[2018-02-11] MEDS: TAMSULOSIN 0.4 MG CAPSULE PO SCH (09:10)
[2018-02-11] MEDS: MONTELUKAST 10 MG TABLET PO SCH (09:10)
[2018-02-11] MEDS: DESITIN 4OZ/NYSTATIN 15 GRAM MIXTURE PASTE TOP SCH (22:30)
[2018-02-12] MEDS: POTASSIUM CHLORIDE INJ 30 MEQ in DEXTROSE 5% NACL 0.9% 1,000 ML IV SCH ×4 (02:50→21:41)
[2018-02-12] MEDS: methylPREDNISolone SOD SUC 40 MG/1 ML VIAL IV SCH ×3 (04:44→21:42)
[2018-02-12 05:52] LABS: Basophils % 0.1 % (0.0-0.8); Hematocrit 29.4 VOL% (42.0-52.0); Hemoglobin 10.1 GM/DL (14.0-18.0); Immature Granulocytes % 3.1 %; Immature Granulocytes Absolute 0.49 #; Lymphocytes # 0.9 10*3/uL (1.4-4.0); Lymphocytes % 5.4 % (21.2-54.2); Mean Corpuscular HGB Conc 34.4 GM/DL (32-36); Mean Corpuscular Hemoglobin 29 PG (27-34); Mean Platelet Volume 9.6 FL (9.6-12.0); Monocytes # 0.7 10*3/uL (0.11-0.8); Monocytes % 4.3 % (1.7-12.7); Neutrophils # 13.6 10*3/uL (1.4-7.4); Neutrophils % 87.1 % (38.7-73.9); Platelet Count 327 T/CUMM (130-400); Red Blood Count 3.46 MC/CUMM (3.8-5.5); Red Cell Distribution Width 13.8 % (9.3-17.3); White Blood Count 15.7 T/CUMM (4-12)
[2018-02-12] MEDS ORDERED: COSYNTROPIN 0.25 MG VIAL IM ONE (06:00)
[2018-02-12 06:20] LABS: Calcium 7.8 MG/DL (8.5-10.1); Osmolality,Calculated 256.5 MOS/KG (273-304); Potassium 2.6 MMOL/L (3.5-5.1)
[2018-02-12] MEDS: predniSONE 10 MG TABLET PO SCH ×2 (06:26→14:25)
[2018-02-12] MEDS: ALBUTEROL/IPRATROPIUM 3 ML NEB RESP TX SCH ×4 (07:15→21:23)
[2018-02-12] MEDS: IPRATROPIUM 500 MCG/2.5 ML NEB RESP TX SCH (07:42)
[2018-02-12] MEDS: MONTELUKAST 10 MG TABLET PO SCH (09:16)
[2018-02-12] MEDS: THEOPHYLLINE ER (24 HR) 200 MG CAPSULE PO SCH (09:17)
[2018-02-12] MEDS: METOPROLOL TARTRATE 25 MG TABLET PO SCH ×2 (09:17→21:45)
[2018-02-12] MEDS: ASPIRIN EC 81 MG TABLET PO SCH (09:18)
[2018-02-12] MEDS: MAGNESIUM OXIDE 400 MG TABLET PO SCH ×3 (09:18→21:44)
[2018-02-12] MEDS: methIMAzole 10 MG TABLET PO SCH (09:18)
[2018-02-12] MEDS: metFORMIN 500 MG TABLET PO SCH ×2 (09:18→17:55)
[2018-02-12] MEDS: DESITIN 4OZ/NYSTATIN 15 GRAM MIXTURE PASTE TOP SCH ×2 (09:18→21:45)
[2018-02-12] MEDS: TAMSULOSIN 0.4 MG CAPSULE PO SCH (09:18)
[2018-02-12] MEDS: CYPROHEPTADINE 4 MG TABLET PO SCH ×2 (09:18→21:44)
[2018-02-12] MEDS: ACETAMINOPHEN 325 MG TABLET PO PRN (14:25)
[2018-02-12] MEDS: LACTULOSE 20 GM/30 ML UDCUP PO SCH ×2 (14:26→21:44)
[2018-02-12] MEDS: INSULIN REGULAR 100 UNIT/ML SUBCUT SCH ×2 (17:55→21:44)
[2018-02-13] MEDS: methylPREDNISolone SOD SUC 40 MG/1 ML VIAL IV SCH ×3 (04:59→21:09)
[2018-02-13 06:22] LABS: Basophils % 0.2 % (0.0-0.8); Hematocrit 30.9 VOL% (42.0-52.0); Immature Granulocytes % 5.4 %; Immature Granulocytes Absolute 0.98 #; Lymphocytes # 1.1 10*3/uL (1.4-4.0); Lymphocytes % 5.8 % (21.2-54.2); Mean Corpuscular HGB Conc 32.4 GM/DL (32-36); Mean Corpuscular Hemoglobin 29 PG (27-34); Mean Platelet Volume 9.4 FL (9.6-12.0); Monocytes # 0.9 10*3/uL (0.11-0.8); Monocytes % 4.7 % (1.7-12.7); Neutrophils # 15.3 10*3/uL (1.4-7.4); Neutrophils % 83.9 % (38.7-73.9); Platelet Count 339 T/CUMM (130-400); Red Blood Count 3.51 MC/CUMM (3.8-5.5); Red Cell Distribution Width 14.3 % (9.3-17.3); White Blood Count 18.2 T/CUMM (4-12)
[2018-02-13 06:35] LABS: Calcium 8.4 MG/DL (8.5-10.1)
[2018-02-13] MEDS: POTASSIUM CHLORIDE INJ 30 MEQ in DEXTROSE 5% NACL 0.9% 1,000 ML IV SCH (06:38)
[2018-02-13] MEDS: predniSONE 10 MG TABLET PO SCH ×2 (06:39→12:47)
[2018-02-13 06:42] LABS: Hypochromasia 1+; Lymphocytes 6 % (20-55); Platelet Estimate Adequate; Segmented Neutrophils 90 % (50-85); Total Cells Counted 100
[2018-02-13] MEDS: ALBUTEROL/IPRATROPIUM 3 ML NEB RESP TX SCH ×4 (07:49→19:43)
[2018-02-13] MEDS: INSULIN REGULAR 100 UNIT/ML SUBCUT SCH ×4 (08:20→21:08)
[2018-02-13] MEDS: ACETAMINOPHEN 325 MG TABLET PO PRN ×2 (08:20→18:48)
[2018-02-13] MEDS: CYPROHEPTADINE 4 MG TABLET PO SCH ×2 (09:22→21:08)
[2018-02-13] MEDS: MONTELUKAST 10 MG TABLET PO SCH (09:22)
[2018-02-13] MEDS: METOPROLOL TARTRATE 25 MG TABLET PO SCH ×2 (09:22→21:08)
[2018-02-13] MEDS: MAGNESIUM OXIDE 400 MG TABLET PO SCH ×3 (09:22→21:08)
[2018-02-13] MEDS: THEOPHYLLINE ER (24 HR) 200 MG CAPSULE PO SCH (09:22)
[2018-02-13] MEDS: ASPIRIN EC 81 MG TABLET PO SCH (09:23)
[2018-02-13] MEDS: methIMAzole 10 MG TABLET PO SCH (09:23)
[2018-02-13] MEDS: TAMSULOSIN 0.4 MG CAPSULE PO SCH (09:23)
[2018-02-13] MEDS: metFORMIN 500 MG TABLET PO SCH ×2 (09:23→18:48)
[2018-02-13] MEDS: DESITIN 4OZ/NYSTATIN 15 GRAM MIXTURE PASTE TOP SCH ×2 (09:24→21:09)
[2018-02-13] MEDS: LACTULOSE 20 GM/30 ML UDCUP PO SCH (09:24)
[2018-02-13] MEDS ORDERED: LACTULOSE 20 GM/30 ML UDCUP PO PRN (10:43)
[2018-02-13] MEDS: POTASSIUM CHLORIDE 10 MEQ TABLET PO SCH ×2 (15:27→21:08)
[2018-02-14] MEDS: CLORAZEPATE 7.5 MG TABLET PO PRN ×2 (00:09→17:18)
[2018-02-14] MEDS: methylPREDNISolone SOD SUC 40 MG/1 ML VIAL IV SCH (04:36)
[2018-02-14 05:23] LABS: Calcium 8.6 MG/DL (8.5-10.1); Osmolality,Calculated 273.8 MOS/KG (273-304); Potassium 3.6 MMOL/L (3.5-5.1)
[2018-02-14] MEDS: predniSONE 10 MG TABLET PO SCH ×2 (06:58→17:18)
[2018-02-14] MEDS: ALBUTEROL/IPRATROPIUM 3 ML NEB RESP TX SCH ×4 (07:40→19:50)
[2018-02-14] MEDS: INSULIN REGULAR 100 UNIT/ML SUBCUT SCH ×4 (10:30→21:19)
[2018-02-14] MEDS: DESITIN 4OZ/NYSTATIN 15 GRAM MIXTURE PASTE TOP SCH ×2 (11:00→21:22)
[2018-02-14] MEDS: THEOPHYLLINE ER (24 HR) 200 MG CAPSULE PO SCH (11:39)
[2018-02-14] MEDS: ASPIRIN EC 81 MG TABLET PO SCH (11:40)
[2018-02-14] MEDS: metFORMIN 500 MG TABLET PO SCH ×2 (11:40→19:15)
[2018-02-14] MEDS: METOPROLOL TARTRATE 25 MG TABLET PO SCH ×2 (11:41→21:22)
[2018-02-14] MEDS: MONTELUKAST 10 MG TABLET PO SCH (11:41)
[2018-02-14] MEDS: methIMAzole 10 MG TABLET PO SCH (11:42)
[2018-02-14] MEDS: TAMSULOSIN 0.4 MG CAPSULE PO SCH (11:42)
[2018-02-14] MEDS: CYPROHEPTADINE 4 MG TABLET PO SCH ×2 (11:42→21:22)
[2018-02-14] MEDS: MAGNESIUM OXIDE 400 MG TABLET PO SCH ×3 (11:43→21:22)
[2018-02-14] MEDS: POTASSIUM CHLORIDE 10 MEQ TABLET PO SCH ×3 (11:43→21:21)
[2018-02-14] MEDS: LACTULOSE 20 GM/30 ML UDCUP PO SCH ×2 (11:46→11:49)
[2018-02-15] MEDS: predniSONE 10 MG TABLET PO SCH ×2 (06:09→18:25)
[2018-02-15 06:20] LABS: Calcium 8.6 MG/DL (8.5-10.1); Osmolality,Calculated 280.4 MOS/KG (273-304); Potassium 5.1 MMOL/L (3.5-5.1)
[2018-02-15] MEDS: ALBUTEROL/IPRATROPIUM 3 ML NEB RESP TX SCH ×4 (08:16→19:40)
[2018-02-15] MEDS: INSULIN REGULAR 100 UNIT/ML SUBCUT SCH ×4 (09:17→21:56)
[2018-02-15] MEDS: methylPREDNISolone SOD SUC 40 MG/1 ML VIAL IV SCH (11:09)
[2018-02-15] MEDS: CLORAZEPATE 7.5 MG TABLET PO PRN (11:12)
[2018-02-15] MEDS: MONTELUKAST 10 MG TABLET PO SCH (11:12)
[2018-02-15] MEDS: TAMSULOSIN 0.4 MG CAPSULE PO SCH (11:13)
[2018-02-15] MEDS: ASPIRIN EC 81 MG TABLET PO SCH (11:13)
[2018-02-15] MEDS: METOPROLOL TARTRATE 25 MG TABLET PO SCH ×2 (11:13→21:56)
[2018-02-15] MEDS: THEOPHYLLINE ER (24 HR) 200 MG CAPSULE PO SCH (11:14)
[2018-02-15] MEDS: metFORMIN 500 MG TABLET PO SCH ×2 (11:15→18:25)
[2018-02-15] MEDS: methIMAzole 10 MG TABLET PO SCH (11:15)
[2018-02-15] MEDS: CYPROHEPTADINE 4 MG TABLET PO SCH ×2 (11:16→21:56)
[2018-02-15] MEDS: MAGNESIUM OXIDE 400 MG TABLET PO SCH ×3 (11:16→21:56)
[2018-02-15] MEDS: LACTULOSE 20 GM/30 ML UDCUP PO SCH (11:19)
[2018-02-15] MEDS: POTASSIUM CHLORIDE 10 MEQ TABLET PO SCH (11:19)
[2018-02-15] MEDS: DESITIN 4OZ/NYSTATIN 15 GRAM MIXTURE PASTE TOP SCH ×2 (11:20→21:57)
[2018-02-16] MEDS: predniSONE 10 MG TABLET PO SCH ×2 (05:09→16:51)
[2018-02-16 06:09] LABS: Calcium 8.4 MG/DL (8.5-10.1); Osmolality,Calculated 273.5 MOS/KG (273-304)
[2018-02-16] MEDS: ALBUTEROL/IPRATROPIUM 3 ML NEB RESP TX SCH ×4 (06:58→20:23)
[2018-02-16] MEDS: INSULIN REGULAR 100 UNIT/ML SUBCUT SCH ×4 (07:44→21:16)
[2018-02-16] MEDS: methylPREDNISolone SOD SUC 40 MG/1 ML VIAL IV SCH (10:03)
[2018-02-16] MEDS: ASPIRIN EC 81 MG TABLET PO SCH (10:06)
[2018-02-16] MEDS: TAMSULOSIN 0.4 MG CAPSULE PO SCH (10:06)
[2018-02-16] MEDS: THEOPHYLLINE ER (24 HR) 200 MG CAPSULE PO SCH (10:06)
[2018-02-16] MEDS: POTASSIUM CHLORIDE 10 MEQ TABLET PO SCH (10:07)
[2018-02-16] MEDS: methIMAzole 10 MG TABLET PO SCH (10:07)
[2018-02-16] MEDS: CYPROHEPTADINE 4 MG TABLET PO SCH ×2 (10:10→21:16)
[2018-02-16] MEDS: metFORMIN 500 MG TABLET PO SCH ×2 (10:11→19:38)
[2018-02-16] MEDS: MONTELUKAST 10 MG TABLET PO SCH (10:11)
[2018-02-16] MEDS: LACTULOSE 20 GM/30 ML UDCUP PO SCH (10:16)
[2018-02-16] MEDS: MAGNESIUM OXIDE 400 MG TABLET PO SCH ×3 (10:17→21:16)
[2018-02-16] MEDS: METOPROLOL TARTRATE 25 MG TABLET PO SCH ×2 (10:17→21:16)
[2018-02-16] MEDS: DESITIN 4OZ/NYSTATIN 15 GRAM MIXTURE PASTE TOP SCH ×2 (19:36→21:20)
[2018-02-17 05:17] LABS: Calcium 8.4 MG/DL (8.5-10.1); Osmolality,Calculated 277.7 MOS/KG (273-304); Potassium 4.2 MMOL/L (3.5-5.1)
[2018-02-17] MEDS: predniSONE 10 MG TABLET PO SCH ×2 (06:02→13:14)
[2018-02-17] MEDS: CLORAZEPATE 7.5 MG TABLET PO PRN (07:21)
[2018-02-17] MEDS: ALBUTEROL/IPRATROPIUM 3 ML NEB RESP TX SCH ×4 (07:42→19:02)
[2018-02-17] MEDS: MONTELUKAST 10 MG TABLET PO SCH (08:11)
[2018-02-17] MEDS: INSULIN REGULAR 100 UNIT/ML SUBCUT SCH ×4 (08:11→21:00)
[2018-02-17] MEDS: THEOPHYLLINE ER (24 HR) 200 MG CAPSULE PO SCH (08:12)
[2018-02-17] MEDS: CYPROHEPTADINE 4 MG TABLET PO SCH ×2 (08:12→20:23)
[2018-02-17] MEDS: MAGNESIUM OXIDE 400 MG TABLET PO SCH ×3 (08:12→20:23)
[2018-02-17] MEDS: TAMSULOSIN 0.4 MG CAPSULE PO SCH (08:12)
[2018-02-17] MEDS: POTASSIUM CHLORIDE 10 MEQ TABLET PO SCH (08:12)
[2018-02-17] MEDS: METOPROLOL TARTRATE 25 MG TABLET PO SCH ×2 (08:12→20:23)
[2018-02-17] MEDS: ACETAMINOPHEN 325 MG TABLET PO PRN (08:12)
[2018-02-17] MEDS: metFORMIN 500 MG TABLET PO SCH ×2 (08:12→17:29)
[2018-02-17] MEDS: methylPREDNISolone SOD SUC 40 MG/1 ML VIAL IV SCH (08:13)
[2018-02-17] MEDS: methIMAzole 10 MG TABLET PO SCH (08:13)
[2018-02-17] MEDS: DESITIN 4OZ/NYSTATIN 15 GRAM MIXTURE PASTE TOP SCH ×2 (08:13→20:24)
[2018-02-17] MEDS: ASPIRIN EC 81 MG TABLET PO SCH (08:13)
[2018-02-17] MEDS: LACTULOSE 20 GM/30 ML UDCUP PO SCH (08:13)
[2018-02-18] MEDS: predniSONE 10 MG TABLET PO SCH (05:07)
[2018-02-18 05:27] LABS: Calcium 8.7 MG/DL (8.5-10.1); Osmolality,Calculated 276.5 MOS/KG (273-304); Potassium 3.4 MMOL/L (3.5-5.1)
[2018-02-18] MEDS: ALBUTEROL/IPRATROPIUM 3 ML NEB RESP TX SCH ×2 (07:48→10:45)
[2018-02-18] MEDS: INSULIN REGULAR 100 UNIT/ML SUBCUT SCH ×2 (08:52→12:20)
[2018-02-18] MEDS: metFORMIN 500 MG TABLET PO SCH (08:54)
[2018-02-18] MEDS: THEOPHYLLINE ER (24 HR) 200 MG CAPSULE PO SCH (08:54)
[2018-02-18] MEDS: METOPROLOL TARTRATE 25 MG TABLET PO SCH (08:54)
[2018-02-18] MEDS: MAGNESIUM OXIDE 400 MG TABLET PO SCH (08:54)
[2018-02-18] MEDS: TAMSULOSIN 0.4 MG CAPSULE PO SCH (08:54)
[2018-02-18] MEDS: methIMAzole 10 MG TABLET PO SCH (08:54)
[2018-02-18] MEDS: POTASSIUM CHLORIDE 10 MEQ TABLET PO SCH (08:54)
[2018-02-18] MEDS: methylPREDNISolone SOD SUC 40 MG/1 ML VIAL IV SCH (08:55)
[2018-02-18] MEDS: CYPROHEPTADINE 4 MG TABLET PO SCH (08:55)
[2018-02-18] MEDS: ASPIRIN EC 81 MG TABLET PO SCH (08:55)
[2018-02-18] MEDS: DESITIN 4OZ/NYSTATIN 15 GRAM MIXTURE PASTE TOP SCH (08:55)
[2018-02-18] MEDS: LACTULOSE 20 GM/30 ML UDCUP PO SCH (08:55)
[2018-02-18] MEDS: MONTELUKAST 10 MG TABLET PO SCH (08:55)
[2018-02-18] MEDS ORDERED: SPIRONOLACTONE 25 MG TABLET PO SCH (10:00)
[2018-02-18 11:27] VITALS: BP 118/74
== END 2018-02-18 12:51 | disposition home or self-care (01) | DRG 640 ==
LOC: N.3E 16:36
PROVIDERS: ADMIT Internal Medicine Pulmonary Disease; ATTEND Internal Medicine Pulmonary Disease

== ENCOUNTER 2018-03-17 11:01 | Inpatient (IN) ==
[2018-03-17] MEDS ORDERED: SODIUM CHLORIDE 0.9% 1,000 ML IV STA ×2 (11:37→14:50)
[2018-03-17] MEDS ORDERED: ONDANSETRON 4 MG/2 ML VIAL IV STA (11:37)
[2018-03-17 11:47] LABS: Basophils # 0.1 10*3/uL (0.0-0.2); Basophils % 0.5 % (0.0-0.8); Eosinophils # 0.1 10*3/uL (0.0-0.87); Eosinophils % 0.2 % (0.00-10.9); Hematocrit 42.9 VOL% (42.0-52.0); Hemoglobin 14.2 GM/DL (14.0-18.0); Immature Granulocytes % 3.7 %; Immature Granulocytes Absolute 0.75 #; Lymphocytes % 14.8 % (21.2-54.2); Mean Corpuscular HGB Conc 33.1 GM/DL (32-36); Mean Corpuscular Hemoglobin 29 PG (27-34); Mean Corpuscular Volume 87.6 FL (87-102); Mean Platelet Volume 8.9 FL (9.6-12.0); Monocytes # 1.4 10*3/uL (0.11-0.8); Neutrophils % 73.8 % (38.7-73.9); Platelet Count 447 T/CUMM (130-400); Red Cell Distribution Width 14.9 % (9.3-17.3); White Blood Count 20.3 T/CUMM (4-12)
[2018-03-17 12:07] LABS: Band Neutrophils 1 % (0-10); Eosinophils 3 % (0-10); Hypochromasia 1+; Lymphocytes 17 % (20-55); Platelet Estimate Adequate; Segmented Neutrophils 74 % (50-85); Total Cells Counted 100
[2018-03-17 12:53] LABS: Albumin 3.6 G/DL (3.4-5.0); Bilirubin,Total 0.5 MG/DL (0.2-1.0); Calcium 9.5 MG/DL (8.5-10.1); Osmolality,Calculated 254.2 MOS/KG (273-304); Total Protein 7.5 G/DL (6.4-8.3)
[2018-03-17 12:55] LABS: Potassium 2.5 MMOL/L (3.5-5.1)
[2018-03-17 13:45] LABS: Apearance,Urine CLEAR (Clear); Bilirubin,Urine Negative (Negative); Blood, Urine Negative (Negative); Glucose,Urine (UA) Negative (Negative); Hyaline Casts,Urine 7 /LPF (0-3); Ketones,Urine Negative (Negative); Mucus,Urine Occasional /LPF (Occasional); Nitrite,Urine Negative (Negative); Protein,Urine Negative; RBC,Urine 1 /HPF (0-4); Urine Color Yellow (Yellow); Urine Specific Gravity 1.005 (1.001-1.035); Urine Urobilinogen < 2.0 EU/DL (0.2-1.0); WBC,Urine 1 /HPF (0-6)
[2018-03-17] MEDS ORDERED: ACETAMINOPHEN 325 MG TABLET PO PRN (15:09)
[2018-03-17] MEDS ORDERED: ONDANSETRON 4 MG/2 ML VIAL IV PRN (15:09)
[2018-03-17] MEDS ORDERED: METOCLOPRAMIDE 10 MG/2 ML VIAL IV PRN (15:14)
[2018-03-17] MEDS: ENOXAPARIN 40 MG/0.4 ML SYRINGE SUBCUT SCH (15:41)
[2018-03-17] MEDS ORDERED: hydrALAZINE 20 MG/1 ML VIAL IV PRN (15:50)
[2018-03-17] MEDS ORDERED: ALBUTEROL 2.5 MG/3 ML NEB RESP TX PRN (15:51)
[2018-03-17] MEDS ORDERED: cefTRIAXone 1,000 MG in SODIUM CHLORIDE 0.9% 100 ML IV SCH (16:00)
[2018-03-17] MEDS: metroNIDAZOLE INJ 500 MG in PREMIX 1 EACH IV SCH (16:35)
[2018-03-17] MEDS: SODIUM CHLOR 0.9% KCL 40 MEQ 40 MEQ/1,000 ML BAG IV SCH (16:40)
[2018-03-17] MEDS: methylPREDNISolone SOD SUC 40 MG/1 ML VIAL IV SCH (16:41)
[2018-03-17] MEDS ORDERED: IPRATROPIUM/ALBUTEROL INHALER INH SCH (17:00)
[2018-03-17] MEDS: cefTRIAXone 1,000 MG in SYRINGE 1 EACH IV SCH (17:26)
[2018-03-17] MEDS: POTASSIUM CHLORIDE RIDER 10 MEQ in PREMIX 1 EACH IV SCH ×2 (18:18→19:20)
[2018-03-17] MEDS: ALBUTEROL/IPRATROPIUM 3 ML NEB RESP TX SCH (18:58)
[2018-03-17] MEDS ORDERED: IPRATROPIUM 500 MCG/2.5 ML NEB RESP TX SCH (19:00)
[2018-03-17] MEDS: INSULIN GLARGINE 100 UNIT/ML SUBCUT SCH (20:57)
[2018-03-17] MEDS: FLUTICASONE/SALMETEROL 250-50 DISKUS 14 DOSE INH SCH (20:57)
[2018-03-18] MEDS: SODIUM CHLOR 0.9% KCL 40 MEQ 40 MEQ/1,000 ML BAG IV SCH ×3 (00:50→20:39)
[2018-03-18 01:10] LABS: Basophils % 0.3 % (0.0-0.8); Hematocrit 31.4 VOL% (42.0-52.0); Hemoglobin 10.3 GM/DL (14.0-18.0); Immature Granulocytes % 4.5 %; Immature Granulocytes Absolute 0.49 #; Lymphocytes # 1.1 10*3/uL (1.4-4.0); Lymphocytes % 9.8 % (21.2-54.2); Mean Corpuscular HGB Conc 32.8 GM/DL (32-36); Mean Corpuscular Hemoglobin 30 PG (27-34); Monocytes # 0.6 10*3/uL (0.11-0.8); Monocytes % 5.1 % (1.7-12.7); Neutrophils # 8.7 10*3/uL (1.4-7.4); Neutrophils % 80.3 % (38.7-73.9); Platelet Count 321 T/CUMM (130-400); Red Blood Count 3.49 MC/CUMM (3.8-5.5); Red Cell Distribution Width 15.1 % (9.3-17.3); White Blood Count 10.8 T/CUMM (4-12)
[2018-03-18] MEDS: metroNIDAZOLE INJ 500 MG in PREMIX 1 EACH IV SCH ×3 (01:16→16:14)
[2018-03-18 01:42] LABS: Calcium 7.5 MG/DL (8.5-10.1); Osmolality,Calculated 265.4 MOS/KG (273-304); Potassium 3.1 MMOL/L (3.5-5.1)
[2018-03-18] MEDS: methylPREDNISolone SOD SUC 40 MG/1 ML VIAL IV SCH ×2 (05:47→16:13)
[2018-03-18] MEDS ORDERED: IPRATROPIUM 500 MCG/2.5 ML NEB RESP TX SCH (07:00)
[2018-03-18] MEDS: ALBUTEROL/IPRATROPIUM 3 ML NEB RESP TX SCH ×4 (07:03→19:14)
[2018-03-18] MEDS: PANTOPRAZOLE 40 MG VIAL IV SCH (08:36)
[2018-03-18] MEDS: FLUTICASONE/SALMETEROL 250-50 DISKUS 14 DOSE INH SCH ×2 (08:36→20:50)
[2018-03-18] MEDS: cefTRIAXone 1,000 MG in SYRINGE 1 EACH IV SCH (16:13)
[2018-03-18] MEDS: ENOXAPARIN 40 MG/0.4 ML SYRINGE SUBCUT SCH (16:13)
[2018-03-18] MEDS ORDERED: MAGNESIUM SULF RIDER 2 GM in PREMIX 1 EACH IV ONE (19:20)
[2018-03-18] MEDS: INSULIN GLARGINE 100 UNIT/ML SUBCUT SCH (20:50)
[2018-03-18] MEDS: POTASSIUM CHLORIDE RIDER 10 MEQ in PREMIX 1 EACH IV SCH ×3 (20:53→23:45)
[2018-03-19] MEDS: POTASSIUM CHLORIDE RIDER 10 MEQ in PREMIX 1 EACH IV SCH (00:21)
[2018-03-19] MEDS: SODIUM CHLOR 0.9% KCL 40 MEQ 40 MEQ/1,000 ML BAG IV SCH ×2 (01:38→12:39)
[2018-03-19] MEDS: metroNIDAZOLE INJ 500 MG in PREMIX 1 EACH IV SCH ×2 (01:38→11:26)
[2018-03-19] MEDS: methylPREDNISolone SOD SUC 40 MG/1 ML VIAL IV SCH ×2 (04:25→18:25)
[2018-03-19 05:43] LABS: Basophils % 0.3 % (0.0-0.8); Eosinophils % 0.1 % (0.00-10.9); Hematocrit 31.1 VOL% (42.0-52.0); Hemoglobin 10.1 GM/DL (14.0-18.0); Immature Granulocytes % 4.7 %; Immature Granulocytes Absolute 0.54 #; Lymphocytes # 1.7 10*3/uL (1.4-4.0); Lymphocytes % 14.6 % (21.2-54.2); Mean Corpuscular HGB Conc 32.5 GM/DL (32-36); Mean Corpuscular Hemoglobin 30 PG (27-34); Mean Corpuscular Volume 92.3 FL (87-102); Mean Platelet Volume 9.4 FL (9.6-12.0); Monocytes # 0.8 10*3/uL (0.11-0.8); Monocytes % 6.7 % (1.7-12.7); Neutrophils # 8.5 10*3/uL (1.4-7.4); Neutrophils % 73.6 % (38.7-73.9); Platelet Count 318 T/CUMM (130-400); Red Blood Count 3.37 MC/CUMM (3.8-5.5); Red Cell Distribution Width 15.7 % (9.3-17.3); White Blood Count 11.5 T/CUMM (4-12)
[2018-03-19 06:02] LABS: Calcium 7.7 MG/DL (8.5-10.1); Osmolality,Calculated 263.2 MOS/KG (273-304); Potassium 3.3 MMOL/L (3.5-5.1)
[2018-03-19 06:10] LABS: Band Neutrophils 2 % (0-10); Hypochromasia 1+; Lymphocytes 12 % (20-55); Platelet Estimate Adequate; Segmented Neutrophils 84 % (50-85); Total Cells Counted 100
[2018-03-19 06:11] LABS: Ovalocytes Slight
[2018-03-19] MEDS: ALBUTEROL/IPRATROPIUM 3 ML NEB RESP TX SCH ×4 (07:13→19:10)
[2018-03-19] MEDS: PANTOPRAZOLE 40 MG VIAL IV SCH (10:47)
[2018-03-19] MEDS: FLUTICASONE/SALMETEROL 250-50 DISKUS 14 DOSE INH SCH ×2 (11:26→20:37)
[2018-03-19] MEDS ORDERED: MORPHINE 4 MG/1 ML VIAL IV ONE (14:24)
[2018-03-19] MEDS: MONTELUKAST 10 MG TABLET PO SCH (14:45)
[2018-03-19] MEDS ORDERED: MORPHINE 4 MG/1 ML VIAL IV PRN (16:34)
[2018-03-19] MEDS: POTASSIUM CHLORIDE RIDER 10 MEQ in PREMIX 1 EACH IV PRN ×4 (18:29→22:54)
[2018-03-19] MEDS: ENOXAPARIN 40 MG/0.4 ML SYRINGE SUBCUT SCH (18:29)
[2018-03-19] MEDS: ALBUTEROL 0.4 MG/ML 30 ML/BOTTLE PO SCH ×2 (20:35→20:36)
[2018-03-19] MEDS: THEOPHYLLINE ER (24 HR) 400 MG CAPSULE PO SCH (20:35)
[2018-03-19] MEDS: METOPROLOL TARTRATE 25 MG TABLET PO SCH (20:35)
[2018-03-19] MEDS: INSULIN GLARGINE 100 UNIT/ML SUBCUT SCH (21:24)
[2018-03-20] MEDS: methylPREDNISolone SOD SUC 40 MG/1 ML VIAL IV SCH (03:54)
[2018-03-20 05:12] LABS: Basophils # 0.1 10*3/uL (0.0-0.2); Basophils % 0.5 % (0.0-0.8); Eosinophils % 0.3 % (0.00-10.9); Hematocrit 30.9 VOL% (42.0-52.0); Hemoglobin 9.8 GM/DL (14.0-18.0); Immature Granulocytes % 5.3 %; Immature Granulocytes Absolute 0.67 #; Lymphocytes # 1.8 10*3/uL (1.4-4.0); Lymphocytes % 13.7 % (21.2-54.2); Mean Corpuscular HGB Conc 31.7 GM/DL (32-36); Mean Corpuscular Hemoglobin 29 PG (27-34); Mean Platelet Volume 9.6 FL (9.6-12.0); Monocytes # 0.7 10*3/uL (0.11-0.8); Monocytes % 5.8 % (1.7-12.7); Neutrophils # 9.5 10*3/uL (1.4-7.4); Neutrophils % 74.4 % (38.7-73.9); Platelet Count 347 T/CUMM (130-400); Red Blood Count 3.36 MC/CUMM (3.8-5.5); White Blood Count 12.8 T/CUMM (4-12)
[2018-03-20 05:42] LABS: Lymphocytes 8 % (20-55); Segmented Neutrophils 89 % (50-85); Total Cells Counted 100
[2018-03-20 05:43] LABS: Hypochromasia Slight; Platelet Estimate Normal
[2018-03-20 05:44] LABS: Calcium 8.4 MG/DL (8.5-10.1); Osmolality,Calculated 269.7 MOS/KG (273-304); Potassium 3.5 MMOL/L (3.5-5.1)
[2018-03-20] MEDS ORDERED: DEXTROSE 50% 25 GM/50 ML VIAL IV PRN (06:37)
[2018-03-20] MEDS: ALBUTEROL/IPRATROPIUM 3 ML NEB RESP TX SCH ×2 (07:21→11:17)
[2018-03-20] MEDS ORDERED: TAMSULOSIN 0.4 MG CAPSULE PO SCH (09:00)
[2018-03-20] MEDS ORDERED: SPIRONOLACTONE 25 MG TABLET PO SCH (09:00)
[2018-03-20] MEDS ORDERED: ASPIRIN EC 81 MG TABLET PO SCH (09:00)
[2018-03-20] MEDS: PANTOPRAZOLE 40 MG VIAL IV SCH (09:26)
[2018-03-20] MEDS: METOPROLOL TARTRATE 25 MG TABLET PO SCH (09:31)
[2018-03-20] MEDS: MONTELUKAST 10 MG TABLET PO SCH (09:32)
[2018-03-20] MEDS: FLUTICASONE/SALMETEROL 250-50 DISKUS 14 DOSE INH SCH (09:34)
[2018-03-20] MEDS: THEOPHYLLINE ER (24 HR) 400 MG CAPSULE PO SCH (09:41)
[2018-03-20] MEDS: POTASSIUM CHLORIDE RIDER 10 MEQ in PREMIX 1 EACH IV PRN (09:51)
[2018-03-20 11:03] VITALS: BP 141/96
[2018-03-22] MEDS ORDERED: ERGOCALCIFEROL 50,000 UNIT CAPSULE PO SCH (09:00)
== END 2018-03-20 12:33 | disposition home health service (06) | DRG 683 ==
LOC: N.ED 11:01 → SUATTDRO 15:09 → N.EDINP 15:09 → N.3E 16:53
PROVIDERS: ADMIT Emergency Medicine; ATTEND Emergency Medicine

== ENCOUNTER 2018-09-25 11:39 | Inpatient (IN) ==
[2018-09-25] MEDS ORDERED: cefTRIAXone 1,000 MG in SODIUM CHLORIDE 0.9% 100 ML IV STA (12:10)
[2018-09-25] MEDS ORDERED: methylPREDNISolone SOD SUC 125 MG/2 ML VIAL IV STA (12:10)
[2018-09-25] MEDS ORDERED: ALBUTEROL 2.5 MG/3 ML NEB RESP TX STA ×2 (12:12→13:24)
[2018-09-25 12:41] LABS: Allen Test Positive
[2018-09-25 12:43] LABS: ABG Base Excess 2.4 MMOL/L (-2.5-2.5); ABG HCO3 26.5 MMOL/L (20-26); ABG Oxygen Saturation 97.5 % (95-100); ABG PH 7.404 (7.35-7.45); ABG PO2 97.2 MM HG (80-95); ABG TCO2 24.2 MMOL/L (23-27)
[2018-09-25 12:44] LABS: Basophils # 0.1 10*3/uL (0.0-0.2); Basophils % 0.5 % (0.0-0.8); Eosinophils # 0.2 10*3/uL (0.0-0.87); Eosinophils % 1.4 % (0.00-10.9); Hematocrit 39.5 VOL% (42.0-52.0); Hemoglobin 12.1 GM/DL (14.0-18.0); Immature Granulocytes % 4.9 %; Immature Granulocytes Absolute 0.71 #; Lymphocytes # 2.7 10*3/uL (1.4-4.0); Lymphocytes % 18.4 % (21.2-54.2); Mean Corpuscular HGB Conc 30.6 GM/DL (32-36); Mean Corpuscular Volume 88.8 FL (87-102); Mean Platelet Volume 9.1 FL (9.6-12.0); Monocytes % 6.8 % (1.7-12.7); Platelet Count 389 T/CUMM (130-400); Red Blood Count 4.45 MC/CUMM (3.8-5.5); Red Cell Distribution Width 18.6 % (9.3-17.3); White Blood Count 14.5 T/CUMM (4-12)
[2018-09-25 13:06] LABS: Alanine Aminotransferase 19 U/L (16-61); Albumin 3.4 G/DL (3.4-5.0); Alkaline Phosphatase 118 U/L (45-117); Aspartate Amino Transferase 18 U/L (0-37); Bilirubin,Total < 0.39 MG/DL (0.2-1.0); Blood Urea Nitrogen 16 MG/DL (7-18); Calcium 8.9 MG/DL (8.5-10.1); Glucose 167 MG/DL (74-106); Osmolality,Calculated 287.1 MOS/KG (273-304); Total Protein 6.8 G/DL (6.4-8.3)
[2018-09-25 13:14] LABS: Band Neutrophils 1 % (0-10); Eosinophils 3 % (0-10); Hypochromasia 1+; Lymphocytes 19 % (20-55); Microcytosis 1+; Segmented Neutrophils 72 % (50-85); Total Cells Counted 100
[2018-09-25] MEDS ORDERED: LORazepam 2 MG/1 ML VIAL IV STA (13:37)
[2018-09-25] MEDS ORDERED: LORazepam 2 MG/1 ML VIAL ONE (13:38)
[2018-09-25] MEDS ORDERED: DILTIAZEM 25 MG/5 ML VIAL IV ONE (13:50)
[2018-09-25] MEDS ORDERED: dilTIAZem Drip 125 MG/125 ML PREMIX IV ONE (13:52)
[2018-09-25] MEDS ORDERED: DILTIAZEM 50 MG/10 ML VIAL IV STA (13:55)
[2018-09-25] MEDS ORDERED: DOCUSATE SODIUM 100 MG CAPSULE PO PRN (13:56)
[2018-09-25] MEDS ORDERED: ONDANSETRON 4 MG/2 ML VIAL IV PRN (13:56)
[2018-09-25] MEDS: dilTIAZem Drip 125 MG/125 ML PREMIX IV SCH ×2 (13:58→21:24)
[2018-09-25] MEDS ORDERED: CLORAZEPATE 7.5 MG TABLET PO PRN (14:00)
[2018-09-25] MEDS ORDERED: SODIUM CHLORIDE 0.9% 2,000 ML IV STA (14:13)
[2018-09-25] MEDS ORDERED: DEXTROSE 50% 25 GM/50 ML VIAL IV PRN (14:21)
[2018-09-25] MEDS ORDERED: GLUCAGON 1 MG VIAL IM PRN (14:21)
[2018-09-25] MEDS ORDERED: cefTRIAXone 1,000 MG in SYRINGE 1 EACH IV SCH (14:30)
[2018-09-25] MEDS: CYCLOBENZAPRINE 10 MG TABLET PO SCH ×2 (14:49→20:12)
[2018-09-25] MEDS: MAGNESIUM OXIDE 400 MG TABLET PO SCH ×2 (14:49→20:11)
[2018-09-25] MEDS: ENOXAPARIN 40 MG/0.4 ML SYRINGE SUBCUT SCH (14:49)
[2018-09-25 15:53] LABS: Free T4 (Free Thyroxine) 1.14 NG/DL (0.76-1.46)
[2018-09-25] MEDS: ALBUTEROL 2.5 MG/3 ML NEB RESP TX PRN (16:15)
[2018-09-25 16:32] LABS: Apearance,Urine CLEAR (Clear); Bilirubin,Urine Negative (Negative); Blood, Urine Small mg/dL (Negative); Glucose,Urine (UA) Negative (Negative); Ketones,Urine Negative (Negative); Mucus,Urine Occasional /LPF (Occasional); Nitrite,Urine Negative (Negative); Protein,Urine Negative; RBC,Urine 1 /HPF (0-4); Urine Color Yellow (Yellow); Urine Specific Gravity 1.012 (1.001-1.035); Urine Urobilinogen < 2.0 EU/DL (0.2-1.0); WBC,Urine <1 /HPF (0-6)
[2018-09-25] MEDS: hydrALAZINE 20 MG/1 ML VIAL IV PRN (16:32)
[2018-09-25] MEDS ORDERED: EPINEPHrine 1 MG/ML VIAL SUBCUT ONE (16:45)
[2018-09-25] MEDS: AMINOPHYLLINE 500 MG in SODIUM CHLORIDE 0.9% 480 ML IV SCH (16:51)
[2018-09-25] MEDS: ALBUTEROL 0.4 MG/ML 30 ML/BOTTLE PO SCH ×2 (16:58→20:15)
[2018-09-25] MEDS: miSOPROStol 200 MCG TABLET PO SCH (16:58)
[2018-09-25] MEDS: SODIUM CHLORIDE 0.9% 1,000 ML IV SCH (17:13)
[2018-09-25] MEDS: INSULIN LISPRO 100 UNIT/ML SUBCUT SCH ×2 (17:13→20:10)
[2018-09-25] MEDS: ALBUTEROL/IPRATROPIUM 3 ML NEB RESP TX SCH (19:30)
[2018-09-25] MEDS: ARFORMOTEROL 15 MCG/2 ML NEB RESP TX SCH (19:30)
[2018-09-25] MEDS: BUDESONIDE 0.5 MG/2 ML NEB RESP TX SCH (19:30)
[2018-09-25] MEDS: methylPREDNISolone SOD SUC 125 MG/2 ML VIAL IV SCH (20:10)
[2018-09-25] MEDS: CLORAZEPATE 7.5 MG TABLET PO SCH (20:10)
[2018-09-25] MEDS: QUEtiapine 25 MG TABLET PO SCH (20:11)
[2018-09-25] MEDS: DONEPEZIL 10 MG TABLET PO SCH (20:11)
[2018-09-25] MEDS: METOPROLOL TARTRATE 25 MG TABLET PO SCH (20:12)
[2018-09-25] MEDS: KETOROLAC 15 MG/1 ML VIAL IV PRN (20:13)
[2018-09-25] MEDS: FLUTICASONE/SALMETEROL 250-50 DISKUS 14 DOSE INH SCH (20:15)
[2018-09-25] MEDS ORDERED: THEOPHYLLINE ER (24 HR) 200 MG CAPSULE PO SCH (21:00)
[2018-09-25] MEDS ORDERED: SODIUM CHLORIDE 0.9% 2,000 ML IV ONE (21:02)
[2018-09-25] MEDS: VANCOMYCIN INJ 1,000 MG in SODIUM CHLORIDE 0.9% 250 ML IV SCH (22:44)
[2018-09-26 00:24] LABS: Allen Test Positive
[2018-09-26 00:26] LABS: CKMB % 4.6 %
[2018-09-26 00:27] LABS: ABG Base Excess -7.2 MMOL/L (-2.5-2.5); ABG HCO3 17.9 MMOL/L (20-26); ABG Oxygen Saturation 96.3 % (95-100); ABG PCO2 34.6 MM HG (35-48); ABG PH 7.332 (7.35-7.45); ABG PO2 96.3 MM HG (80-95)
[2018-09-26 00:27] LABS: Troponin I 0.079 NG/ML (0.00-0.045)
[2018-09-26] MEDS ORDERED: LORazepam 2 MG/1 ML VIAL IV ONE (00:30)
[2018-09-26] MEDS ORDERED: LORazepam 2 MG/1 ML VIAL ONE ×3 (00:38→19:16)
[2018-09-26] MEDS: ALBUTEROL/IPRATROPIUM 3 ML NEB RESP TX SCH ×4 (01:30→18:53)
[2018-09-26] MEDS: SODIUM CHLORIDE 0.9% 1,000 ML IV SCH ×4 (01:46→15:29)
[2018-09-26 01:58] LABS: Basophils # 0.1 10*3/uL (0.0-0.2); Basophils % 0.3 % (0.0-0.8); Hematocrit 34.7 VOL% (42.0-52.0); Hemoglobin 10.2 GM/DL (14.0-18.0); Immature Granulocytes % 4.7 %; Immature Granulocytes Absolute 0.97 #; Lymphocytes # 0.5 10*3/uL (1.4-4.0); Lymphocytes % 2.2 % (21.2-54.2); Mean Corpuscular HGB Conc 29.4 GM/DL (32-36); Mean Corpuscular Volume 90.1 FL (87-102); Mean Platelet Volume 9.3 FL (9.6-12.0); Monocytes % 1.2 % (1.7-12.7); Neutrophils % 91.6 % (38.7-73.9); Platelet Count 333 T/CUMM (130-400); Red Blood Count 3.85 MC/CUMM (3.8-5.5); Red Cell Distribution Width 18.6 % (9.3-17.3); White Blood Count 20.8 T/CUMM (4-12)
[2018-09-26] MEDS: methylPREDNISolone SOD SUC 125 MG/2 ML VIAL IV SCH ×4 (02:02→19:23)
[2018-09-26 02:19] LABS: Calcium 7.4 MG/DL (8.5-10.1); Osmolality,Calculated 287.4 MOS/KG (273-304)
[2018-09-26 02:28] LABS: Lymphocytes 4 % (20-55); Segmented Neutrophils 94 % (50-85); Total Cells Counted 100
[2018-09-26 02:29] LABS: Anisocytosis 1+; Platelet Estimate Adequate
[2018-09-26 05:20] LABS: Albumin 3.1 G/DL (3.4-5.0); Bilirubin,Total 0.6 MG/DL (0.2-1.0); Calcium 7.8 MG/DL (8.5-10.1); Osmolality,Calculated 291.3 MOS/KG (273-304); Total Protein 6.1 G/DL (6.4-8.3)
[2018-09-26] MEDS: BUDESONIDE 0.5 MG/2 ML NEB RESP TX SCH ×2 (06:53→18:53)
[2018-09-26] MEDS: ARFORMOTEROL 15 MCG/2 ML NEB RESP TX SCH ×2 (06:53→18:53)
[2018-09-26] MEDS ORDERED: LEVOFLOXACIN INJ 750 MG in PREMIX 1 EACH IV SCH (07:30)
[2018-09-26] MEDS: ALBUTEROL 0.4 MG/ML 30 ML/BOTTLE PO SCH ×4 (08:23→20:05)
[2018-09-26] MEDS: INSULIN LISPRO 100 UNIT/ML SUBCUT SCH ×4 (08:27→20:05)
[2018-09-26] MEDS: PIPERACILLIN/TAZOBACTAM 3,375 MG in SODIUM CHLORIDE 0.9% 100 ML IV SCH ×3 (08:27→23:35)
[2018-09-26] MEDS: FLUTICASONE/SALMETEROL 250-50 DISKUS 14 DOSE INH SCH ×2 (08:28→20:05)
[2018-09-26] MEDS: CLORAZEPATE 7.5 MG TABLET PO SCH ×3 (08:29→20:04)
[2018-09-26] MEDS: FUROSEMIDE 20 MG TABLET PO SCH (08:29)
[2018-09-26] MEDS: SPIRONOLACTONE 25 MG TABLET PO SCH (08:29)
[2018-09-26] MEDS: miSOPROStol 200 MCG TABLET PO SCH ×2 (08:29→17:01)
[2018-09-26] MEDS: PANTOPRAZOLE 40 MG TABLET PO SCH (08:29)
[2018-09-26] MEDS: MAGNESIUM OXIDE 400 MG TABLET PO SCH ×3 (08:29→20:04)
[2018-09-26] MEDS: TAMSULOSIN 0.4 MG CAPSULE PO SCH (08:29)
[2018-09-26] MEDS: METOPROLOL TARTRATE 25 MG TABLET PO SCH ×2 (08:29→20:04)
[2018-09-26] MEDS: ASPIRIN EC 81 MG TABLET PO SCH (08:29)
[2018-09-26] MEDS: MONTELUKAST 10 MG TABLET PO SCH (08:29)
[2018-09-26] MEDS: CYCLOBENZAPRINE 10 MG TABLET PO SCH ×3 (08:29→20:05)
[2018-09-26] MEDS ORDERED: metOLazone 2.5 MG TABLET PO SCH (09:00)
[2018-09-26] MEDS ORDERED: methIMAzole 10 MG TABLET PO SCH (09:00)
[2018-09-26] MEDS: AZITHROMYCIN INJ 500 MG in SODIUM CHLORIDE 0.9% 250 ML IV SCH (09:15)
[2018-09-26] MEDS: LACTULOSE 20 GM/30 ML UDCUP PO PRN ×3 (10:24→20:05)
[2018-09-26] MEDS: VANCOMYCIN INJ 1,000 MG in SODIUM CHLORIDE 0.9% 250 ML IV SCH (10:25)
[2018-09-26] MEDS: ALUMINUM/MAGNES/SIMETH MAX STR 30 ML UDCUP PO SCH ×3 (10:29→23:35)
[2018-09-26] MEDS: methIMAzole 5 MG TABLET PO SCH (10:34)
[2018-09-26] MEDS ORDERED: cefTRIAXone 1,000 MG in SYRINGE 1 EACH IV SCH (12:00)
[2018-09-26] MEDS: LORazepam 2 MG/1 ML VIAL IV PRN ×2 (14:02→19:23)
[2018-09-26] MEDS: ENOXAPARIN 40 MG/0.4 ML SYRINGE SUBCUT SCH (14:04)
[2018-09-26] MEDS: KETOROLAC 15 MG/1 ML VIAL IV PRN (14:43)
[2018-09-26] MEDS: dilTIAZem Drip 125 MG/125 ML PREMIX IV SCH (15:15)
[2018-09-26] MEDS: AMINOPHYLLINE 500 MG in SODIUM CHLORIDE 0.9% 480 ML IV SCH (15:16)
[2018-09-26] MEDS: DONEPEZIL 10 MG TABLET PO SCH (20:04)
[2018-09-26] MEDS: QUEtiapine 25 MG TABLET PO SCH (20:05)
[2018-09-27] MEDS: ALBUTEROL/IPRATROPIUM 3 ML NEB RESP TX SCH ×4 (00:08→19:59)
[2018-09-27] MEDS: dilTIAZem Drip 125 MG/125 ML PREMIX IV SCH ×3 (00:20→17:43)
[2018-09-27] MEDS: methylPREDNISolone SOD SUC 125 MG/2 ML VIAL IV SCH ×2 (02:20→08:33)
[2018-09-27] MEDS: SODIUM CHLORIDE 0.9% 1,000 ML IV SCH ×3 (03:32→17:07)
[2018-09-27 04:34] LABS: Basophils # 0.1 10*3/uL (0.0-0.2); Basophils % 0.2 % (0.0-0.8); Hematocrit 33.6 VOL% (42.0-52.0); Hemoglobin 10.4 GM/DL (14.0-18.0); Immature Granulocytes % 4.2 %; Immature Granulocytes Absolute 1.22 #; Lymphocytes # 0.5 10*3/uL (1.4-4.0); Lymphocytes % 1.6 % (21.2-54.2); Mean Platelet Volume 9.4 FL (9.6-12.0); Monocytes % 2.5 % (1.7-12.7); Neutrophils % 91.5 % (38.7-73.9); Platelet Count 371 T/CUMM (130-400); Red Blood Count 3.82 MC/CUMM (3.8-5.5); Red Cell Distribution Width 19.2 % (9.3-17.3); White Blood Count 29.3 T/CUMM (4-12)
[2018-09-27 05:02] LABS: Calcium 8.2 MG/DL (8.5-10.1)
[2018-09-27] MEDS: ALUMINUM/MAGNES/SIMETH MAX STR 30 ML UDCUP PO SCH ×3 (05:07→15:55)
[2018-09-27 05:26] LABS: Hypochromasia Slight; Lymphocytes 4 % (20-55); Platelet Estimate Normal; Polychromasia Few; Segmented Neutrophils 94 % (50-85); Total Cells Counted 100
[2018-09-27] MEDS: BUDESONIDE 0.5 MG/2 ML NEB RESP TX SCH ×2 (06:41→19:59)
[2018-09-27] MEDS: ARFORMOTEROL 15 MCG/2 ML NEB RESP TX SCH ×2 (06:41→19:59)
[2018-09-27] MEDS: ALBUTEROL 0.4 MG/ML 30 ML/BOTTLE PO SCH ×4 (08:31→21:24)
[2018-09-27] MEDS: FLUTICASONE/SALMETEROL 250-50 DISKUS 14 DOSE INH SCH ×2 (08:31→21:24)
[2018-09-27] MEDS: INSULIN LISPRO 100 UNIT/ML SUBCUT SCH ×4 (08:31→21:31)
[2018-09-27] MEDS: LACTULOSE 20 GM/30 ML UDCUP PO SCH ×3 (08:31→21:24)
[2018-09-27] MEDS: TAMSULOSIN 0.4 MG CAPSULE PO SCH (08:32)
[2018-09-27] MEDS: ASPIRIN EC 81 MG TABLET PO SCH (08:32)
[2018-09-27] MEDS: CYCLOBENZAPRINE 10 MG TABLET PO SCH ×3 (08:32→21:25)
[2018-09-27] MEDS: methIMAzole 5 MG TABLET PO SCH (08:32)
[2018-09-27] MEDS: MONTELUKAST 10 MG TABLET PO SCH (08:33)
[2018-09-27] MEDS: CLORAZEPATE 7.5 MG TABLET PO SCH ×3 (08:33→21:25)
[2018-09-27] MEDS: SPIRONOLACTONE 25 MG TABLET PO SCH (08:33)
[2018-09-27] MEDS: PANTOPRAZOLE 40 MG TABLET PO SCH (08:33)
[2018-09-27] MEDS: miSOPROStol 200 MCG TABLET PO SCH ×2 (08:33→17:02)
[2018-09-27] MEDS: FUROSEMIDE 20 MG TABLET PO SCH (08:33)
[2018-09-27] MEDS: MAGNESIUM OXIDE 400 MG TABLET PO SCH ×3 (08:33→21:25)
[2018-09-27] MEDS: METOPROLOL TARTRATE 25 MG TABLET PO SCH ×2 (08:33→21:25)
[2018-09-27] MEDS: LORazepam 2 MG/1 ML VIAL IV PRN ×2 (08:41→13:58)
[2018-09-27] MEDS ORDERED: LORazepam 2 MG/1 ML VIAL ONE ×2 (08:41→13:53)
[2018-09-27] MEDS: AMINOPHYLLINE 500 MG in SODIUM CHLORIDE 0.9% 480 ML IV SCH (08:43)
[2018-09-27] MEDS: AZITHROMYCIN INJ 500 MG in SODIUM CHLORIDE 0.9% 250 ML IV SCH (08:50)
[2018-09-27] MEDS: PIPERACILLIN/TAZOBACTAM 3,375 MG in SODIUM CHLORIDE 0.9% 100 ML IV SCH ×2 (10:26→15:55)
[2018-09-27] MEDS: methylPREDNISolone SOD SUC 40 MG/1 ML VIAL IV SCH ×2 (11:48→17:02)
[2018-09-27] MEDS: ERGOCALCIFEROL 50,000 UNIT CAPSULE PO SCH (13:58)
[2018-09-27] MEDS: ENOXAPARIN 40 MG/0.4 ML SYRINGE SUBCUT SCH (13:58)
[2018-09-27] MEDS: QUEtiapine 25 MG TABLET PO SCH (21:24)
[2018-09-27] MEDS: DONEPEZIL 10 MG TABLET PO SCH (21:25)
[2018-09-28] MEDS ORDERED: LORazepam 2 MG/1 ML VIAL ONE (00:26)
[2018-09-28] MEDS: ALBUTEROL/IPRATROPIUM 3 ML NEB RESP TX SCH ×4 (00:31→19:16)
[2018-09-28] MEDS: methylPREDNISolone SOD SUC 40 MG/1 ML VIAL IV SCH ×4 (00:31→22:21)
[2018-09-28] MEDS: PIPERACILLIN/TAZOBACTAM 3,375 MG in SODIUM CHLORIDE 0.9% 100 ML IV SCH ×3 (00:32→15:07)
[2018-09-28] MEDS: hydrALAZINE 20 MG/1 ML VIAL IV PRN ×2 (00:32→17:00)
[2018-09-28] MEDS: LORazepam 2 MG/1 ML VIAL IV PRN (00:33)
[2018-09-28] MEDS: ALUMINUM/MAGNES/SIMETH MAX STR 30 ML UDCUP PO SCH ×4 (00:33→17:03)
[2018-09-28] MEDS: AMINOPHYLLINE 500 MG in SODIUM CHLORIDE 0.9% 480 ML IV SCH (02:16)
[2018-09-28] MEDS: dilTIAZem Drip 125 MG/125 ML PREMIX IV SCH ×3 (02:17→13:13)
[2018-09-28 03:28] LABS: ABG Base Excess -2.3 MMOL/L (-2.5-2.5); ABG HCO3 22.4 MMOL/L (20-26); ABG Oxygen Saturation 97.4 % (95-100); ABG PCO2 37.6 MM HG (35-48); ABG PH 7.382 (7.35-7.45); ABG PO2 89.8 MM HG (80-95); ABG TCO2 20.4 MMOL/L (23-27); Allen Test Positive
[2018-09-28 04:40] LABS: Basophils # 0.1 10*3/uL (0.0-0.2); Basophils % 0.2 % (0.0-0.8); Hematocrit 32.1 VOL% (42.0-52.0); Hemoglobin 9.7 GM/DL (14.0-18.0); Immature Granulocytes % 3.2 %; Immature Granulocytes Absolute 0.83 #; Lymphocytes # 0.2 10*3/uL (1.4-4.0); Lymphocytes % 0.6 % (21.2-54.2); Mean Corpuscular HGB Conc 30.2 GM/DL (32-36); Mean Corpuscular Volume 89.2 FL (87-102); Mean Platelet Volume 9.3 FL (9.6-12.0); Monocytes % 3.7 % (1.7-12.7); Neutrophils % 92.3 % (38.7-73.9); Platelet Count 329 T/CUMM (130-400); Red Cell Distribution Width 19.5 % (9.3-17.3); White Blood Count 26.3 T/CUMM (4-12)
[2018-09-28 04:55] LABS: Calcium 7.8 MG/DL (8.5-10.1); Osmolality,Calculated 302.8 MOS/KG (273-304)
[2018-09-28 05:07] LABS: Anisocytosis 1+; Band Neutrophils 2 % (0-10); Lymphocytes 3 % (20-55); Platelet Estimate Adequate; Segmented Neutrophils 91 % (50-85); Total Cells Counted 100
[2018-09-28] MEDS: SODIUM CHLORIDE 0.9% 1,000 ML IV SCH ×2 (06:04→19:35)
[2018-09-28] MEDS: ARFORMOTEROL 15 MCG/2 ML NEB RESP TX SCH ×2 (06:49→19:11)
[2018-09-28] MEDS: BUDESONIDE 0.5 MG/2 ML NEB RESP TX SCH ×2 (06:49→19:21)
[2018-09-28] MEDS: INSULIN LISPRO 100 UNIT/ML SUBCUT SCH ×4 (08:42→22:23)
[2018-09-28] MEDS: FLUTICASONE/SALMETEROL 250-50 DISKUS 14 DOSE INH SCH ×2 (08:46→22:27)
[2018-09-28] MEDS: ALBUTEROL 0.4 MG/ML 30 ML/BOTTLE PO SCH ×4 (08:47→22:26)
[2018-09-28] MEDS: AZITHROMYCIN INJ 500 MG in SODIUM CHLORIDE 0.9% 250 ML IV SCH (08:48)
[2018-09-28] MEDS: ASPIRIN EC 81 MG TABLET PO SCH (08:48)
[2018-09-28] MEDS: LACTULOSE 20 GM/30 ML UDCUP PO SCH ×3 (08:48→22:21)
[2018-09-28] MEDS: TAMSULOSIN 0.4 MG CAPSULE PO SCH (08:48)
[2018-09-28] MEDS: DILTIAZEM 60 MG TABLET PO SCH ×3 (08:48→22:26)
[2018-09-28] MEDS: MONTELUKAST 10 MG TABLET PO SCH (08:48)
[2018-09-28] MEDS: CLORAZEPATE 7.5 MG TABLET PO SCH ×3 (08:48→22:21)
[2018-09-28] MEDS: miSOPROStol 200 MCG TABLET PO SCH ×2 (08:48→17:03)
[2018-09-28] MEDS: METOPROLOL TARTRATE 25 MG TABLET PO SCH ×2 (08:48→22:22)
[2018-09-28] MEDS: PANTOPRAZOLE 40 MG TABLET PO SCH (08:48)
[2018-09-28] MEDS: methIMAzole 5 MG TABLET PO SCH (08:48)
[2018-09-28] MEDS: CYCLOBENZAPRINE 10 MG TABLET PO SCH ×3 (08:48→22:21)
[2018-09-28] MEDS: MAGNESIUM OXIDE 400 MG TABLET PO SCH ×2 (08:48→15:38)
[2018-09-28] MEDS ORDERED: DILTIAZEM 30 MG TABLET PO ONE (13:04)
[2018-09-28] MEDS: ENOXAPARIN 40 MG/0.4 ML SYRINGE SUBCUT SCH (13:20)
[2018-09-28] MEDS: DONEPEZIL 10 MG TABLET PO SCH (22:21)
[2018-09-28] MEDS: QUEtiapine 25 MG TABLET PO SCH (22:22)
[2018-09-28] MEDS: THEOPHYLLINE ER (24 HR) 400 MG TABLET PO SCH (22:26)
[2018-09-28] MEDS: DILTIAZEM 90 MG TABLET PO SCH (22:27)
[2018-09-29] MEDS: ALUMINUM/MAGNES/SIMETH MAX STR 30 ML UDCUP PO SCH ×3 (00:03→09:34)
[2018-09-29] MEDS: PIPERACILLIN/TAZOBACTAM 3,375 MG in SODIUM CHLORIDE 0.9% 100 ML IV SCH ×3 (00:03→18:28)
[2018-09-29] MEDS: ALBUTEROL/IPRATROPIUM 3 ML NEB RESP TX SCH ×4 (01:39→19:11)
[2018-09-29 03:49] LABS: ABG HCO3 22.7 MMOL/L (20-26); ABG Oxygen Saturation 95.5 % (95-100); ABG PCO2 43.4 MM HG (35-48); ABG PH 7.344 (7.35-7.45); ABG TCO2 21.7 MMOL/L (23-27); Allen Test Positive
[2018-09-29] MEDS: methylPREDNISolone SOD SUC 40 MG/1 ML VIAL IV SCH ×3 (05:36→21:42)
[2018-09-29 06:16] LABS: Basophils # 0.1 10*3/uL (0.0-0.2); Basophils % 0.2 % (0.0-0.8); Hematocrit 30.1 VOL% (42.0-52.0); Hemoglobin 8.9 GM/DL (14.0-18.0); Immature Granulocytes % 3.3 %; Immature Granulocytes Absolute 0.69 #; Lymphocytes # 0.2 10*3/uL (1.4-4.0); Lymphocytes % 0.8 % (21.2-54.2); Mean Corpuscular HGB Conc 29.6 GM/DL (32-36); Mean Corpuscular Volume 90.1 FL (87-102); Mean Platelet Volume 9.3 FL (9.6-12.0); Monocytes % 3.4 % (1.7-12.7); Neutrophils % 92.3 % (38.7-73.9); Platelet Count 276 T/CUMM (130-400); Red Blood Count 3.34 MC/CUMM (3.8-5.5); Red Cell Distribution Width 19.9 % (9.3-17.3); White Blood Count 21.2 T/CUMM (4-12)
[2018-09-29 06:35] LABS: Calcium 7.7 MG/DL (8.5-10.1); Osmolality,Calculated 304.7 MOS/KG (273-304)
[2018-09-29 06:59] LABS: Band Neutrophils 1 % (0-10); Platelet Estimate Adequate; Segmented Neutrophils 97 % (50-85); Total Cells Counted 100
[2018-09-29 07:00] LABS: Hypochromasia 1+
[2018-09-29] MEDS: BUDESONIDE 0.5 MG/2 ML NEB RESP TX SCH ×2 (07:22→19:11)
[2018-09-29] MEDS: ARFORMOTEROL 15 MCG/2 ML NEB RESP TX SCH ×2 (07:22→19:11)
[2018-09-29] MEDS: ALBUTEROL 0.4 MG/ML 30 ML/BOTTLE PO SCH ×4 (09:29→21:57)
[2018-09-29] MEDS: CLORAZEPATE 7.5 MG TABLET PO SCH (09:29)
[2018-09-29] MEDS: THEOPHYLLINE ER (24 HR) 400 MG TABLET PO SCH (09:29)
[2018-09-29] MEDS: MONTELUKAST 10 MG TABLET PO SCH (09:30)
[2018-09-29] MEDS: methIMAzole 5 MG TABLET PO SCH (09:30)
[2018-09-29] MEDS: miSOPROStol 200 MCG TABLET PO SCH ×2 (09:30→16:13)
[2018-09-29] MEDS: METOPROLOL TARTRATE 25 MG TABLET PO SCH ×2 (09:30→21:52)
[2018-09-29] MEDS: PANTOPRAZOLE 40 MG TABLET PO SCH (09:30)
[2018-09-29] MEDS: DILTIAZEM 90 MG TABLET PO SCH ×4 (09:30→21:41)
[2018-09-29] MEDS: CYCLOBENZAPRINE 10 MG TABLET PO SCH ×3 (09:31→21:45)
[2018-09-29] MEDS: FLUTICASONE/SALMETEROL 250-50 DISKUS 14 DOSE INH SCH ×2 (09:31→21:45)
[2018-09-29] MEDS: LACTULOSE 20 GM/30 ML UDCUP PO SCH ×3 (09:31→21:42)
[2018-09-29] MEDS: TAMSULOSIN 0.4 MG CAPSULE PO SCH (09:31)
[2018-09-29] MEDS: ASPIRIN EC 81 MG TABLET PO SCH (09:31)
[2018-09-29] MEDS: INSULIN LISPRO 100 UNIT/ML SUBCUT SCH ×4 (09:32→21:41)
[2018-09-29] MEDS: AZITHROMYCIN INJ 500 MG in SODIUM CHLORIDE 0.9% 250 ML IV SCH (09:34)
[2018-09-29 09:39] LABS: % Iron Saturation 15.4 % (18-50)
[2018-09-29] MEDS: ALBUTEROL 2.5 MG/3 ML NEB RESP TX PRN (09:52)
[2018-09-29] MEDS ORDERED: SODIUM PHOSPHATE ENEMA 133 ML BOTTLE RECTAL ONE (10:04)
[2018-09-29] MEDS ORDERED: SODIUM PHOSPHATE ENEMA 133 ML BOTTLE RECTAL PRN (10:04)
[2018-09-29] MEDS ORDERED: PROPOFOL 1,000 MG/100 ML BOTTLE IV ONE (10:36)
[2018-09-29] MEDS ORDERED: SUCCINYLCHOLINE 200 MG/10 ML VIAL IV ONE (10:50)
[2018-09-29] MEDS ORDERED: SUCCINYLCHOLINE 200 MG/10 ML VIAL ONE (10:54)
[2018-09-29] MEDS: PROPOFOL 1,000 MG/100 ML BOTTLE IV SCH (11:00)
[2018-09-29 12:06] LABS: ABG Base Excess -1.6 MMOL/L (-2.5-2.5); ABG HCO3 24.2 MMOL/L (20-26); ABG Oxygen Saturation 99.3 % (95-100); ABG PCO2 45.9 MM HG (35-48); ABG PO2 485.9 MM HG (80-95); ABG TCO2 25.6 MMOL/L (23-27)
[2018-09-29] MEDS: AMINOPHYLLINE 500 MG in SODIUM CHLORIDE 0.9% 480 ML IV SCH (12:27)
[2018-09-29] MEDS: FERRIC GLUCONATE COMPLEX 125 MG in SODIUM CHLORIDE 0.9% 100 ML IV SCH ×2 (12:27→13:10)
[2018-09-29] MEDS: dilTIAZem Drip 125 MG/125 ML PREMIX IV SCH (14:06)
[2018-09-29] MEDS: ENOXAPARIN 40 MG/0.4 ML SYRINGE SUBCUT SCH (16:08)
[2018-09-29] MEDS: SODIUM CHLORIDE 0.9% 1,000 ML IV SCH (17:58)
[2018-09-29] MEDS: DONEPEZIL 10 MG TABLET PO SCH (21:42)
[2018-09-29] MEDS: QUEtiapine 25 MG TABLET PO SCH (21:52)
[2018-09-30] MEDS: PROPOFOL 1,000 MG/100 ML BOTTLE IV SCH ×3 (00:56→18:29)
[2018-09-30] MEDS: ALBUTEROL/IPRATROPIUM 3 ML NEB RESP TX SCH ×4 (00:57→19:11)
[2018-09-30] MEDS: PIPERACILLIN/TAZOBACTAM 3,375 MG in SODIUM CHLORIDE 0.9% 100 ML IV SCH ×3 (02:55→17:04)
[2018-09-30 04:12] LABS: Basophils # 0.1 10*3/uL (0.0-0.2); Basophils % 0.2 % (0.0-0.8); Hematocrit 27.8 VOL% (42.0-52.0); Hemoglobin 8.2 GM/DL (14.0-18.0); Immature Granulocytes % 4.2 %; Immature Granulocytes Absolute 0.85 #; Lymphocytes # 0.2 10*3/uL (1.4-4.0); Lymphocytes % 0.9 % (21.2-54.2); Mean Corpuscular HGB Conc 29.5 GM/DL (32-36); Mean Corpuscular Volume 91.7 FL (87-102); Mean Platelet Volume 9.5 FL (9.6-12.0); Monocytes % 3.6 % (1.7-12.7); Neutrophils % 91.1 % (38.7-73.9); Platelet Count 250 T/CUMM (130-400); Red Blood Count 3.03 MC/CUMM (3.8-5.5); Red Cell Distribution Width 19.8 % (9.3-17.3); White Blood Count 20.4 T/CUMM (4-12)
[2018-09-30 04:23] LABS: ABG Base Excess -0.1 MMOL/L (-2.5-2.5); ABG HCO3 24.4 MMOL/L (20-26); ABG Oxygen Saturation 99.7 % (95-100); ABG PH 7.383 (7.35-7.45)
[2018-09-30 04:30] LABS: Calcium 7.8 MG/DL (8.5-10.1); Osmolality,Calculated 307.4 MOS/KG (273-304)
[2018-09-30 04:31] LABS: Band Neutrophils 3 % (0-10); Hypochromasia 1+; Lymphocytes 1 % (20-55); Myelocytes 1 %; Platelet Estimate Adequate; Segmented Neutrophils 92 % (50-85); Total Cells Counted 100
[2018-09-30] MEDS: methylPREDNISolone SOD SUC 40 MG/1 ML VIAL IV SCH ×3 (04:55→20:28)
[2018-09-30 05:05] LABS: Prealbumin 18.9 MG/DL (20-40)
[2018-09-30] MEDS: AMINOPHYLLINE 500 MG in SODIUM CHLORIDE 0.9% 480 ML IV SCH ×2 (05:16→09:40)
[2018-09-30] MEDS: SODIUM CHLORIDE 0.9% 1,000 ML IV SCH ×2 (06:17→19:38)
[2018-09-30] MEDS: ARFORMOTEROL 15 MCG/2 ML NEB RESP TX SCH ×2 (07:25→19:11)
[2018-09-30] MEDS: BUDESONIDE 0.5 MG/2 ML NEB RESP TX SCH ×2 (07:25→19:11)
[2018-09-30] MEDS: INSULIN LISPRO 100 UNIT/ML SUBCUT SCH ×4 (08:20→23:36)
[2018-09-30] MEDS: AZITHROMYCIN INJ 500 MG in SODIUM CHLORIDE 0.9% 250 ML IV SCH (09:08)
[2018-09-30] MEDS: MONTELUKAST 10 MG TABLET PO SCH (09:12)
[2018-09-30] MEDS: miSOPROStol 200 MCG TABLET PO SCH ×2 (09:12→17:03)
[2018-09-30] MEDS: DILTIAZEM 90 MG TABLET PO SCH ×4 (09:12→20:26)
[2018-09-30] MEDS: methIMAzole 5 MG TABLET PO SCH (09:12)
[2018-09-30] MEDS: METOPROLOL TARTRATE 25 MG TABLET PO SCH ×2 (09:12→20:26)
[2018-09-30] MEDS: PANTOPRAZOLE 40 MG TABLET PO SCH (09:12)
[2018-09-30] MEDS: LACTULOSE 20 GM/30 ML UDCUP PO SCH ×3 (09:12→20:25)
[2018-09-30] MEDS: ASPIRIN EC 81 MG TABLET PO SCH (09:12)
[2018-09-30] MEDS: FLUTICASONE/SALMETEROL 250-50 DISKUS 14 DOSE INH SCH ×2 (09:13→20:29)
[2018-09-30] MEDS: TAMSULOSIN 0.4 MG CAPSULE PO SCH (09:13)
[2018-09-30] MEDS: ALBUTEROL 0.4 MG/ML 30 ML/BOTTLE PO SCH ×4 (09:16→20:31)
[2018-09-30] MEDS ORDERED: FUROSEMIDE 40 MG/4 ML VIAL IV ONE (11:43)
[2018-09-30] MEDS ORDERED: POTASSIUM PHOSPHATE 15 MMOL in SODIUM CHLORIDE 0.9% 100 ML IV ONE (12:00)
[2018-09-30] MEDS: INSULIN GLARGINE 100 UNIT/ML SUBCUT SCH (12:06)
[2018-09-30] MEDS: MULTIVITAMIN LIQUID (CENTRUM) 60 ML BOTTLE PER TUBE SCH (12:09)
[2018-09-30] MEDS: ENOXAPARIN 40 MG/0.4 ML SYRINGE SUBCUT SCH (13:19)
[2018-09-30] MEDS: QUEtiapine 25 MG TABLET PO SCH (20:26)
[2018-09-30] MEDS: DONEPEZIL 10 MG TABLET PO SCH (20:26)
[2018-10-01] MEDS: PROPOFOL 1,000 MG/100 ML BOTTLE IV SCH ×4 (00:29→22:09)
[2018-10-01] MEDS: ALBUTEROL/IPRATROPIUM 3 ML NEB RESP TX SCH ×4 (01:12→20:01)
[2018-10-01] MEDS: PIPERACILLIN/TAZOBACTAM 3,375 MG in SODIUM CHLORIDE 0.9% 100 ML IV SCH ×3 (01:48→18:07)
[2018-10-01] MEDS: methylPREDNISolone SOD SUC 40 MG/1 ML VIAL IV SCH ×3 (03:57→20:28)
[2018-10-01 04:02] LABS: Basophils # 0.1 10*3/uL (0.0-0.2); Basophils % 0.3 % (0.0-0.8); Hematocrit 26.7 VOL% (42.0-52.0); Hemoglobin 8.1 GM/DL (14.0-18.0); Immature Granulocytes Absolute 0.96 #; Lymphocytes # 0.1 10*3/uL (1.4-4.0); Lymphocytes % 0.7 % (21.2-54.2); Mean Corpuscular HGB Conc 30.3 GM/DL (32-36); Mean Corpuscular Volume 88.4 FL (87-102); Monocytes % 3.9 % (1.7-12.7); Neutrophils % 90.1 % (38.7-73.9); Platelet Count 233 T/CUMM (130-400); Red Blood Count 3.02 MC/CUMM (3.8-5.5); Red Cell Distribution Width 19.5 % (9.3-17.3); White Blood Count 19.3 T/CUMM (4-12)
[2018-10-01 04:09] LABS: PT Patient Result 11.3 SECS; Partial Thromboplastin Time 23.9 SECS (0-40)
[2018-10-01 04:19] LABS: Osmolality,Calculated 305.4 MOS/KG (273-304)
[2018-10-01 04:28] LABS: ABG HCO3 32.8 MMOL/L (20-26); ABG PCO2 40.4 MM HG (35-48); ABG PH 7.517 (7.35-7.45); Allen Test Positive; Pt O2 Delivery Device Ventilator
[2018-10-01 04:29] LABS: Lymphocytes 3 % (20-55); Platelet Estimate Adequate; Segmented Neutrophils 94 % (50-85); Total Cells Counted 100
[2018-10-01 04:30] LABS: Hypochromasia 1+
[2018-10-01] MEDS: INSULIN LISPRO 100 UNIT/ML SUBCUT SCH ×4 (05:37→23:44)
[2018-10-01] MEDS: BUDESONIDE 0.5 MG/2 ML NEB RESP TX SCH ×2 (07:17→20:01)
[2018-10-01] MEDS: ARFORMOTEROL 15 MCG/2 ML NEB RESP TX SCH ×2 (07:25→20:01)
[2018-10-01] MEDS: SODIUM CHLORIDE 0.9% 1,000 ML IV SCH ×2 (08:16→22:27)
[2018-10-01] MEDS ORDERED: ASPIRIN CHEW 81 MG TABLET PO SCH (09:00)
[2018-10-01] MEDS ORDERED: FUROSEMIDE 40 MG/4 ML VIAL IV ONE (09:08)
[2018-10-01] MEDS ORDERED: CYANOCOBALAMIN 1000 MCG/1 ML VIAL IM ONE (09:40)
[2018-10-01] MEDS: miSOPROStol 200 MCG TABLET PO SCH ×2 (10:42→17:52)
[2018-10-01] MEDS: MONTELUKAST 10 MG TABLET PO SCH (10:42)
[2018-10-01] MEDS: DILTIAZEM 90 MG TABLET PO SCH ×4 (10:42→20:31)
[2018-10-01] MEDS: METOPROLOL TARTRATE 25 MG TABLET PO SCH ×2 (10:42→20:31)
[2018-10-01] MEDS: methIMAzole 5 MG TABLET PO SCH (10:42)
[2018-10-01] MEDS: TAMSULOSIN 0.4 MG CAPSULE PO SCH (10:43)
[2018-10-01] MEDS: LACTULOSE 20 GM/30 ML UDCUP PO SCH ×3 (10:43→20:41)
[2018-10-01] MEDS: ASPIRIN CHEW 81 MG TABLET PO SCH (10:43)
[2018-10-01] MEDS: LANSOPRAZOLE ODT 30 MG TABLET PER TUBE SCH (10:43)
[2018-10-01] MEDS: MULTIVITAMIN LIQUID (CENTRUM) 60 ML BOTTLE PER TUBE SCH (10:44)
[2018-10-01] MEDS: ALBUTEROL 0.4 MG/ML 30 ML/BOTTLE PO SCH ×4 (10:44→20:32)
[2018-10-01] MEDS: INSULIN GLARGINE 100 UNIT/ML SUBCUT SCH (10:45)
[2018-10-01] MEDS: AZITHROMYCIN INJ 500 MG in SODIUM CHLORIDE 0.9% 250 ML IV SCH (10:45)
[2018-10-01] MEDS: FLUTICASONE/SALMETEROL 250-50 DISKUS 14 DOSE INH SCH ×2 (10:56→22:30)
[2018-10-01] MEDS: ASPIRIN EC 81 MG TABLET PO SCH (10:58)
[2018-10-01] MEDS: PANTOPRAZOLE 40 MG TABLET PO SCH (10:58)
[2018-10-01] MEDS: ENOXAPARIN 40 MG/0.4 ML SYRINGE SUBCUT SCH (14:04)
[2018-10-01] MEDS ORDERED: POTASSIUM PHOSPHATE 20 MMOL in SODIUM CHLORIDE 0.9% 100 ML IV ONE (15:00)
[2018-10-01] MEDS: FERRIC GLUCONATE COMPLEX 125 MG in SODIUM CHLORIDE 0.9% 100 ML IV SCH (16:20)
[2018-10-01] MEDS: QUEtiapine 25 MG TABLET PO SCH (20:31)
[2018-10-01] MEDS: DONEPEZIL 10 MG TABLET PO SCH (20:32)
[2018-10-01] MEDS: AMINOPHYLLINE 500 MG in SODIUM CHLORIDE 0.9% 480 ML IV SCH (22:29)
[2018-10-02] MEDS: ALBUTEROL/IPRATROPIUM 3 ML NEB RESP TX SCH ×4 (00:43→19:00)
[2018-10-02] MEDS: PIPERACILLIN/TAZOBACTAM 3,375 MG in SODIUM CHLORIDE 0.9% 100 ML IV SCH ×2 (01:38→10:42)
[2018-10-02] MEDS: methylPREDNISolone SOD SUC 40 MG/1 ML VIAL IV SCH ×2 (03:38→14:16)
[2018-10-02 03:54] LABS: ABG Base Excess 11.4 MMOL/L (-2.5-2.5); ABG HCO3 35.2 MMOL/L (20-26); ABG Oxygen Saturation 99.8 % (95-100); ABG PCO2 44.9 MM HG (35-48); ABG TCO2 32.8 MMOL/L (23-27); Allen Test Positive; Pt O2 Delivery Device Ventilator
[2018-10-02] MEDS: hydrALAZINE 20 MG/1 ML VIAL IV PRN (03:56)
[2018-10-02 04:52] LABS: Basophils # 0.1 10*3/uL (0.0-0.2); Basophils % 0.2 % (0.0-0.8); Hematocrit 29.2 VOL% (42.0-52.0); Hemoglobin 8.9 GM/DL (14.0-18.0); Immature Granulocytes Absolute 1.05 #; Lymphocytes # 0.2 10*3/uL (1.4-4.0); Lymphocytes % 0.8 % (21.2-54.2); Mean Corpuscular HGB Conc 30.5 GM/DL (32-36); Mean Corpuscular Volume 89.3 FL (87-102); Mean Platelet Volume 10.5 FL (9.6-12.0); Monocytes % 3.3 % (1.7-12.7); NRBC # 0.03 10*3/uL; Neutrophils % 90.7 % (38.7-73.9); Platelet Count 234 T/CUMM (130-400); Red Blood Count 3.27 MC/CUMM (3.8-5.5); Red Cell Distribution Width 20.1 % (9.3-17.3)
[2018-10-02 05:17] LABS: Calcium 7.9 MG/DL (8.5-10.1); Osmolality,Calculated 304.7 MOS/KG (273-304)
[2018-10-02 05:29] LABS: Band Neutrophils 1 % (0-10); Lymphocytes 3 % (20-55); Platelet Estimate Normal; Polychromasia Few; Segmented Neutrophils 96 % (50-85); Total Cells Counted 100
[2018-10-02] MEDS: INSULIN LISPRO 100 UNIT/ML SUBCUT SCH ×3 (05:34→18:20)
[2018-10-02 05:35] LABS: Prealbumin 19.3 MG/DL (20-40)
[2018-10-02] MEDS: PROPOFOL 1,000 MG/100 ML BOTTLE IV SCH ×3 (06:32→22:10)
[2018-10-02] MEDS: ARFORMOTEROL 15 MCG/2 ML NEB RESP TX SCH ×2 (08:13→19:00)
[2018-10-02] MEDS: BUDESONIDE 0.5 MG/2 ML NEB RESP TX SCH ×2 (08:13→19:00)
[2018-10-02] MEDS: ALBUTEROL 0.4 MG/ML 30 ML/BOTTLE PO SCH ×4 (10:11→20:39)
[2018-10-02] MEDS: METOPROLOL TARTRATE 25 MG TABLET PO SCH ×2 (10:12→20:38)
[2018-10-02] MEDS: methIMAzole 5 MG TABLET PO SCH (10:12)
[2018-10-02] MEDS: MULTIVITAMIN LIQUID (CENTRUM) 60 ML BOTTLE PER TUBE SCH (10:12)
[2018-10-02] MEDS: miSOPROStol 200 MCG TABLET PO SCH ×2 (10:12→18:20)
[2018-10-02] MEDS: DILTIAZEM 90 MG TABLET PO SCH ×4 (10:13→20:38)
[2018-10-02] MEDS: TAMSULOSIN 0.4 MG CAPSULE PO SCH (10:14)
[2018-10-02] MEDS: ASPIRIN CHEW 81 MG TABLET PO SCH (10:14)
[2018-10-02] MEDS: LANSOPRAZOLE ODT 30 MG TABLET PER TUBE SCH (10:14)
[2018-10-02] MEDS: MONTELUKAST 10 MG TABLET PO SCH (10:14)
[2018-10-02] MEDS: CYANOCOBALAMIN 1000 MCG/1 ML VIAL IM SCH (10:14)
[2018-10-02] MEDS: LACTULOSE 20 GM/30 ML UDCUP PO SCH (10:15)
[2018-10-02] MEDS: INSULIN GLARGINE 100 UNIT/ML SUBCUT SCH (10:15)
[2018-10-02] MEDS: FERRIC GLUCONATE COMPLEX 125 MG in SODIUM CHLORIDE 0.9% 100 ML IV SCH (10:15)
[2018-10-02] MEDS: FLUTICASONE/SALMETEROL 250-50 DISKUS 14 DOSE INH SCH ×2 (10:16→20:40)
[2018-10-02] MEDS: AZITHROMYCIN INJ 500 MG in SODIUM CHLORIDE 0.9% 250 ML IV SCH (11:38)
[2018-10-02] MEDS: SODIUM CHLORIDE 0.9% 1,000 ML IV SCH (13:31)
[2018-10-02] MEDS: ENOXAPARIN 40 MG/0.4 ML SYRINGE SUBCUT SCH (14:14)
[2018-10-02] MEDS: AMINOPHYLLINE 500 MG in SODIUM CHLORIDE 0.9% 480 ML IV SCH (14:19)
[2018-10-02] MEDS: CLINDAMYCIN INJ 300 MG in PREMIX 1 EACH IV SCH ×2 (14:40→21:47)
[2018-10-02] MEDS ORDERED: LACTULOSE 20 GM/30 ML UDCUP PO PRN (14:44)
[2018-10-02] MEDS ORDERED: LACTULOSE 20 GM/30 ML UDCUP PO SCH (15:00)
[2018-10-02] MEDS: DONEPEZIL 10 MG TABLET PO SCH (20:38)
[2018-10-02] MEDS: QUEtiapine 25 MG TABLET PO SCH (20:38)
[2018-10-03] MEDS: INSULIN LISPRO 100 UNIT/ML SUBCUT SCH ×4 (00:15→18:04)
[2018-10-03] MEDS: ALBUTEROL/IPRATROPIUM 3 ML NEB RESP TX SCH ×4 (01:56→18:55)
[2018-10-03] MEDS: SODIUM CHLORIDE 0.9% 1,000 ML IV SCH (02:15)
[2018-10-03] MEDS: methylPREDNISolone SOD SUC 40 MG/1 ML VIAL IV SCH ×2 (02:41→14:34)
[2018-10-03 05:38] LABS: Basophils # 0.2 10*3/uL (0.0-0.2); Basophils % 0.7 % (0.0-0.8); Hematocrit 30.8 VOL% (42.0-52.0); Hemoglobin 9.2 GM/DL (14.0-18.0); Immature Granulocytes Absolute 2.36 #; Lymphocytes # 0.3 10*3/uL (1.4-4.0); Lymphocytes % 1.4 % (21.2-54.2); Mean Corpuscular HGB Conc 29.9 GM/DL (32-36); Mean Corpuscular Volume 91.1 FL (87-102); Mean Platelet Volume 10.2 FL (9.6-12.0); Monocytes % 4.8 % (1.7-12.7); NRBC # 0.08 10*3/uL; Neutrophils % 83.1 % (38.7-73.9); Platelet Count 232 T/CUMM (130-400); Red Blood Count 3.38 MC/CUMM (3.8-5.5); Red Cell Distribution Width 20.4 % (9.3-17.3); White Blood Count 23.5 T/CUMM (4-12)
[2018-10-03 06:08] LABS: Band Neutrophils 5 % (0-10); Hypochromasia 1+; Lymphocytes 2 % (20-55); Myelocytes 1 %; Nucleated Red Blood Cells 2 (0-5); Platelet Estimate Adequate; Segmented Neutrophils 88 % (50-85); Total Cells Counted 100
[2018-10-03] MEDS: PROPOFOL 1,000 MG/100 ML BOTTLE IV SCH ×2 (06:25→11:41)
[2018-10-03] MEDS: CLINDAMYCIN INJ 300 MG in PREMIX 1 EACH IV SCH ×3 (06:34→22:06)
[2018-10-03 06:35] LABS: Calcium 8.2 MG/DL (8.5-10.1); Osmolality,Calculated 303.7 MOS/KG (273-304)
[2018-10-03] MEDS: ARFORMOTEROL 15 MCG/2 ML NEB RESP TX SCH ×2 (07:00→18:55)
[2018-10-03] MEDS: BUDESONIDE 0.5 MG/2 ML NEB RESP TX SCH ×2 (07:00→18:55)
[2018-10-03 07:35] LABS: ABG Base Excess 9.1 MMOL/L (-2.5-2.5); ABG HCO3 34.4 MMOL/L (20-26); ABG Oxygen Saturation 98.7 % (95-100); ABG PCO2 50.8 MM HG (35-48); ABG PH 7.448 (7.35-7.45); ABG PO2 176.6 MM HG (80-95); ABG TCO2 35.9 MMOL/L (23-27); Allen Test Positive
[2018-10-03] MEDS: ALBUMIN 25% 25 GM in PREMIX 1 EACH IV SCH ×2 (08:55→16:50)
[2018-10-03] MEDS: FUROSEMIDE 40 MG/4 ML VIAL IV SCH ×2 (08:56→17:19)
[2018-10-03] MEDS: DILTIAZEM 90 MG TABLET PO SCH ×4 (08:56→20:11)
[2018-10-03] MEDS: ASPIRIN CHEW 81 MG TABLET PO SCH (08:56)
[2018-10-03] MEDS: methIMAzole 5 MG TABLET PO SCH (08:56)
[2018-10-03] MEDS: TAMSULOSIN 0.4 MG CAPSULE PO SCH (08:56)
[2018-10-03] MEDS: METOPROLOL TARTRATE 25 MG TABLET PO SCH ×2 (08:56→20:12)
[2018-10-03] MEDS: INSULIN GLARGINE 100 UNIT/ML SUBCUT SCH (08:57)
[2018-10-03] MEDS: ALBUTEROL 0.4 MG/ML 30 ML/BOTTLE PO SCH ×4 (08:57→20:15)
[2018-10-03] MEDS: LACTULOSE 20 GM/30 ML UDCUP PO SCH ×2 (08:57→20:11)
[2018-10-03] MEDS: CYANOCOBALAMIN 1000 MCG/1 ML VIAL IM SCH (08:57)
[2018-10-03] MEDS: miSOPROStol 200 MCG TABLET PO SCH ×2 (08:57→17:20)
[2018-10-03] MEDS: MONTELUKAST 10 MG TABLET PO SCH (08:57)
[2018-10-03] MEDS: LANSOPRAZOLE ODT 30 MG TABLET PER TUBE SCH (08:57)
[2018-10-03] MEDS: MULTIVITAMIN LIQUID (CENTRUM) 60 ML BOTTLE PER TUBE SCH (08:58)
[2018-10-03] MEDS: FLUTICASONE/SALMETEROL 250-50 DISKUS 14 DOSE INH SCH ×2 (08:58→20:15)
[2018-10-03] MEDS: DOCUSATE SODIUM 100 MG CAPSULE PO SCH ×2 (08:58→20:13)
[2018-10-03] MEDS ORDERED: FUROSEMIDE 40 MG/4 ML VIAL IV SCH (09:00)
[2018-10-03 09:44] LABS: ABG Base Excess 6.9 MMOL/L (-2.5-2.5); ABG HCO3 30.8 MMOL/L (20-26); ABG Oxygen Saturation 99.3 % (95-100); ABG PCO2 57.9 MM HG (35-48); ABG PH 7.375 (7.35-7.45); ABG TCO2 30.6 MMOL/L (23-27); Allen Test Positive
[2018-10-03] MEDS: FERRIC GLUCONATE COMPLEX 125 MG in SODIUM CHLORIDE 0.9% 100 ML IV SCH (10:02)
[2018-10-03] MEDS: PIPERACILLIN/TAZOBACTAM 3,375 MG in SODIUM CHLORIDE 0.9% 100 ML IV SCH ×2 (11:27→17:38)
[2018-10-03] MEDS: AMINOPHYLLINE 500 MG in SODIUM CHLORIDE 0.9% 480 ML IV SCH (12:56)
[2018-10-03] MEDS: ENOXAPARIN 40 MG/0.4 ML SYRINGE SUBCUT SCH (14:33)
[2018-10-03] MEDS: ACETAMINOPHEN 325 MG TABLET PO PRN (14:33)
[2018-10-03] MEDS: DEXTROSE 10% 250 ML BAG IV PRN (18:09)
[2018-10-03] MEDS: DONEPEZIL 10 MG TABLET PO SCH (20:11)
[2018-10-03] MEDS: QUEtiapine 25 MG TABLET PO SCH (20:12)
[2018-10-04] MEDS: ALBUMIN 25% 25 GM in PREMIX 1 EACH IV SCH ×2 (00:19→08:40)
[2018-10-04] MEDS: ALBUTEROL/IPRATROPIUM 3 ML NEB RESP TX SCH ×4 (01:55→19:35)
[2018-10-04] MEDS: PIPERACILLIN/TAZOBACTAM 3,375 MG in SODIUM CHLORIDE 0.9% 100 ML IV SCH ×3 (02:56→17:39)
[2018-10-04 03:08] LABS: Basophils # 0.1 10*3/uL (0.0-0.2); Basophils % 0.4 % (0.0-0.8); Hematocrit 29.3 VOL% (42.0-52.0); Hemoglobin 8.8 GM/DL (14.0-18.0); Immature Granulocytes % 10.4 %; Immature Granulocytes Absolute 2.19 #; Lymphocytes # 0.5 10*3/uL (1.4-4.0); Lymphocytes % 2.3 % (21.2-54.2); Mean Corpuscular Volume 92.4 FL (87-102); Mean Platelet Volume 10.2 FL (9.6-12.0); Monocytes % 4.5 % (1.7-12.7); NRBC # 0.08 10*3/uL; Neutrophils % 82.4 % (38.7-73.9); Platelet Count 248 T/CUMM (130-400); Red Blood Count 3.17 MC/CUMM (3.8-5.5); Red Cell Distribution Width 20.3 % (9.3-17.3)
[2018-10-04] MEDS: methylPREDNISolone SOD SUC 40 MG/1 ML VIAL IV SCH ×2 (03:12→14:03)
[2018-10-04 03:25] LABS: Alanine Aminotransferase 28 U/L (16-61); Albumin 3.4 G/DL (3.4-5.0); Alkaline Phosphatase 89 U/L (45-117); Aspartate Amino Transferase 27 U/L (0-37); Bilirubin,Total < 0.39 MG/DL (0.2-1.0); Blood Urea Nitrogen 32 MG/DL (7-18); Calcium 8.9 MG/DL (8.5-10.1); Osmolality,Calculated 291.7 MOS/KG (273-304); Total Protein 5.7 G/DL (6.4-8.3)
[2018-10-04 03:37] LABS: Glucose 39 MG/DL (74-106)
[2018-10-04] MEDS: DEXTROSE 10% 250 ML BAG IV PRN ×2 (03:55→04:50)
[2018-10-04 03:56] LABS: ABG Base Excess 10.9 MMOL/L (-2.5-2.5); ABG HCO3 34.6 MMOL/L (20-26); ABG Oxygen Saturation 95.9 % (95-100); ABG PCO2 56.4 MM HG (35-48); ABG PH 7.427 (7.35-7.45); ABG PO2 75.8 MM HG (80-95); Allen Test Positive
[2018-10-04 04:07] LABS: Anisocytosis 1+; Hypochromasia 1+; Lymphocytes 4 % (20-55); Metamyelocytes 2 %; Microcytosis 1+; Segmented Neutrophils 87 % (50-85); Total Cells Counted 100
[2018-10-04 04:08] LABS: Ovalocytes 1+; Platelet Estimate Adequate; Polychromasia 1+
[2018-10-04] MEDS: DEXTROSE 10% 1,000 ML IV SCH ×2 (04:16→14:29)
[2018-10-04] MEDS: hydrALAZINE 20 MG/1 ML VIAL IV PRN (05:08)
[2018-10-04] MEDS: INSULIN LISPRO 100 UNIT/ML SUBCUT SCH ×6 (05:13→20:59)
[2018-10-04] MEDS: ARFORMOTEROL 15 MCG/2 ML NEB RESP TX SCH ×2 (06:41→19:35)
[2018-10-04] MEDS: BUDESONIDE 0.5 MG/2 ML NEB RESP TX SCH ×2 (06:41→19:35)
[2018-10-04] MEDS: CLINDAMYCIN INJ 300 MG in PREMIX 1 EACH IV SCH ×3 (07:13→21:32)
[2018-10-04] MEDS ORDERED: HYDROCORTISONE 100 MG VIAL IV ONE (08:29)
[2018-10-04] MEDS ORDERED: FLUDROCORTISONE 0.1 MG TABLET PO ONE (08:30)
[2018-10-04] MEDS: miSOPROStol 200 MCG TABLET PO SCH ×2 (08:54→17:20)
[2018-10-04] MEDS: FUROSEMIDE 40 MG/4 ML VIAL IV SCH ×2 (08:54→16:19)
[2018-10-04] MEDS: ASPIRIN CHEW 81 MG TABLET PO SCH (09:13)
[2018-10-04] MEDS: DOCUSATE SODIUM 100 MG CAPSULE PO SCH ×2 (09:14→20:58)
[2018-10-04] MEDS: FLUTICASONE/SALMETEROL 250-50 DISKUS 14 DOSE INH SCH ×2 (09:15→21:00)
[2018-10-04] MEDS: MONTELUKAST 10 MG TABLET PO SCH (09:16)
[2018-10-04] MEDS: TAMSULOSIN 0.4 MG CAPSULE PO SCH (09:16)
[2018-10-04] MEDS: DILTIAZEM 90 MG TABLET PO SCH ×4 (09:16→20:57)
[2018-10-04] MEDS: methIMAzole 5 MG TABLET PO SCH (09:16)
[2018-10-04] MEDS: METOPROLOL TARTRATE 25 MG TABLET PO SCH ×2 (09:17→20:58)
[2018-10-04] MEDS: LANSOPRAZOLE ODT 30 MG TABLET PER TUBE SCH (09:17)
[2018-10-04] MEDS: FERRIC GLUCONATE COMPLEX 125 MG in SODIUM CHLORIDE 0.9% 100 ML IV SCH (09:18)
[2018-10-04] MEDS: MULTIVITAMIN LIQUID (CENTRUM) 60 ML BOTTLE PER TUBE SCH (09:18)
[2018-10-04] MEDS: LACTULOSE 20 GM/30 ML UDCUP PO SCH ×2 (09:19→20:58)
[2018-10-04] MEDS: ALBUTEROL 0.4 MG/ML 30 ML/BOTTLE PO SCH ×4 (09:22→21:01)
[2018-10-04] MEDS: AMINOPHYLLINE 500 MG in SODIUM CHLORIDE 0.9% 480 ML IV SCH (12:57)
[2018-10-04] MEDS: ENOXAPARIN 40 MG/0.4 ML SYRINGE SUBCUT SCH (14:03)
[2018-10-04] MEDS: ERGOCALCIFEROL 50,000 UNIT CAPSULE PO SCH (14:03)
[2018-10-04] MEDS: HYDROCORTISONE 100 MG VIAL IV SCH (17:39)
[2018-10-04] MEDS: FLUDROCORTISONE 0.1 MG TABLET PO SCH (20:58)
[2018-10-04] MEDS: DONEPEZIL 10 MG TABLET PO SCH (20:58)
[2018-10-04] MEDS: QUEtiapine 25 MG TABLET PO SCH (21:02)
[2018-10-05] MEDS: DEXTROSE 10% 1,000 ML IV SCH (00:15)
[2018-10-05] MEDS: INSULIN LISPRO 100 UNIT/ML SUBCUT SCH ×6 (00:59→21:21)
[2018-10-05] MEDS: ALBUTEROL/IPRATROPIUM 3 ML NEB RESP TX SCH ×4 (01:00→19:06)
[2018-10-05] MEDS: methylPREDNISolone SOD SUC 40 MG/1 ML VIAL IV SCH ×2 (02:32→15:09)
[2018-10-05] MEDS: HYDROCORTISONE 100 MG VIAL IV SCH ×3 (02:32→18:03)
[2018-10-05] MEDS: PIPERACILLIN/TAZOBACTAM 3,375 MG in SODIUM CHLORIDE 0.9% 100 ML IV SCH ×3 (02:32→18:03)
[2018-10-05] MEDS ORDERED: DILTIAZEM 90 MG TABLET PO ONE (03:05)
[2018-10-05 04:27] LABS: ABG Base Excess 14.8 MMOL/L (-2.5-2.5); ABG Oxygen Saturation 96.6 % (95-100); ABG PCO2 52.8 MM HG (35-48); ABG PH 7.497 (7.35-7.45); ABG PO2 97.7 MM HG (80-95); ABG TCO2 41.6 MMOL/L (23-27); Allen Test Positive
[2018-10-05] MEDS: CLINDAMYCIN INJ 300 MG in PREMIX 1 EACH IV SCH ×3 (06:00→22:27)
[2018-10-05 06:19] LABS: Basophils # 0.1 10*3/uL (0.0-0.2); Basophils % 0.4 % (0.0-0.8); Hematocrit 30.5 VOL% (42.0-52.0); Hemoglobin 9.7 GM/DL (14.0-18.0); Immature Granulocytes % 6.8 %; Immature Granulocytes Absolute 1.76 #; Lymphocytes # 0.3 10*3/uL (1.4-4.0); Lymphocytes % 1.2 % (21.2-54.2); Mean Corpuscular HGB Conc 31.8 GM/DL (32-36); Mean Corpuscular Volume 88.4 FL (87-102); Mean Platelet Volume 10.4 FL (9.6-12.0); Monocytes % 3.6 % (1.7-12.7); NRBC # 0.03 10*3/uL; Platelet Count 296 T/CUMM (130-400); Red Blood Count 3.45 MC/CUMM (3.8-5.5); Red Cell Distribution Width 20.2 % (9.3-17.3)
[2018-10-05 06:38] LABS: Albumin 3.1 G/DL (3.4-5.0); Bilirubin,Total 0.5 MG/DL (0.2-1.0); Osmolality,Calculated 296.7 MOS/KG (273-304); Total Protein 5.5 G/DL (6.4-8.3)
[2018-10-05 06:53] LABS: Band Neutrophils 7 % (0-10); Lymphocytes 5 % (20-55); Macrocytosis 1+; Nucleated Red Blood Cells 1 (0-5); Platelet Estimate Normal; Segmented Neutrophils 80 % (50-85); Total Cells Counted 100
[2018-10-05 06:54] LABS: Anisocytosis 2+; Basophilic Stippling Slight; Polychromasia Slight
[2018-10-05] MEDS: ARFORMOTEROL 15 MCG/2 ML NEB RESP TX SCH ×2 (07:07→19:06)
[2018-10-05] MEDS: BUDESONIDE 0.5 MG/2 ML NEB RESP TX SCH ×2 (07:07→19:06)
[2018-10-05] MEDS: POTASSIUM CHLORIDE 20 MEQ/15 ML UDCUP PER TUBE PRN ×4 (07:50→15:17)
[2018-10-05] MEDS: miSOPROStol 200 MCG TABLET PO SCH ×2 (07:51→16:50)
[2018-10-05] MEDS: FUROSEMIDE 40 MG/4 ML VIAL IV SCH (08:00)
[2018-10-05] MEDS: LACTULOSE 20 GM/30 ML UDCUP PO SCH ×2 (09:40→21:19)
[2018-10-05] MEDS: MULTIVITAMIN LIQUID (CENTRUM) 60 ML BOTTLE PER TUBE SCH (09:41)
[2018-10-05] MEDS: ALBUTEROL 0.4 MG/ML 30 ML/BOTTLE PO SCH ×4 (09:41→21:22)
[2018-10-05] MEDS: FUROSEMIDE 20 MG TABLET PO SCH (09:42)
[2018-10-05] MEDS: DILTIAZEM 90 MG TABLET PO SCH ×4 (09:43→21:19)
[2018-10-05] MEDS: DOCUSATE SODIUM 100 MG CAPSULE PO SCH ×2 (09:43→21:21)
[2018-10-05] MEDS: ASPIRIN CHEW 81 MG TABLET PO SCH (09:43)
[2018-10-05] MEDS: methIMAzole 5 MG TABLET PO SCH (09:43)
[2018-10-05] MEDS: MONTELUKAST 10 MG TABLET PO SCH (09:43)
[2018-10-05] MEDS: FERRIC GLUCONATE COMPLEX 125 MG in SODIUM CHLORIDE 0.9% 100 ML IV SCH (09:44)
[2018-10-05] MEDS: FLUDROCORTISONE 0.1 MG TABLET PO SCH (09:44)
[2018-10-05] MEDS: METOPROLOL TARTRATE 25 MG TABLET PO SCH ×2 (09:44→21:22)
[2018-10-05] MEDS: TAMSULOSIN 0.4 MG CAPSULE PO SCH (09:44)
[2018-10-05] MEDS: FLUTICASONE/SALMETEROL 250-50 DISKUS 14 DOSE INH SCH ×2 (09:45→21:22)
[2018-10-05] MEDS: LANSOPRAZOLE ODT 30 MG TABLET PER TUBE SCH (09:45)
[2018-10-05] MEDS: AMINOPHYLLINE 500 MG in SODIUM CHLORIDE 0.9% 480 ML IV SCH (12:21)
[2018-10-05] MEDS: ENOXAPARIN 40 MG/0.4 ML SYRINGE SUBCUT SCH (14:15)
[2018-10-05] MEDS: DONEPEZIL 10 MG TABLET PO SCH (21:19)
[2018-10-05] MEDS: QUEtiapine 25 MG TABLET PO SCH (21:21)
[2018-10-06] MEDS: INSULIN LISPRO 100 UNIT/ML SUBCUT SCH ×7 (00:50→21:39)
[2018-10-06] MEDS: POTASSIUM CHLORIDE 20 MEQ/15 ML UDCUP PER TUBE PRN ×3 (00:51→04:50)
[2018-10-06] MEDS: ALBUTEROL/IPRATROPIUM 3 ML NEB RESP TX SCH ×4 (02:05→20:21)
[2018-10-06] MEDS: HYDROCORTISONE 100 MG VIAL IV SCH ×2 (03:10→16:11)
[2018-10-06] MEDS: PIPERACILLIN/TAZOBACTAM 3,375 MG in SODIUM CHLORIDE 0.9% 100 ML IV SCH ×3 (03:27→17:39)
[2018-10-06] MEDS: methylPREDNISolone SOD SUC 40 MG/1 ML VIAL IV SCH ×2 (03:28→16:11)
[2018-10-06 03:54] LABS: ABG Base Excess 13.7 MMOL/L (-2.5-2.5); ABG HCO3 37.4 MMOL/L (20-26); ABG PCO2 52.2 MM HG (35-48); ABG PH 7.485 (7.35-7.45); ABG PO2 57.5 MM HG (80-95); ABG TCO2 35.6 MMOL/L (23-27); Allen Test Positive
[2018-10-06 05:00] LABS: Basophils # 0.1 10*3/uL (0.0-0.2); Basophils % 0.4 % (0.0-0.8); Hematocrit 29.9 VOL% (42.0-52.0); Hemoglobin 8.9 GM/DL (14.0-18.0); Immature Granulocytes % 5.5 %; Immature Granulocytes Absolute 1.52 #; Lymphocytes # 0.3 10*3/uL (1.4-4.0); Lymphocytes % 1.2 % (21.2-54.2); Mean Corpuscular HGB Conc 29.8 GM/DL (32-36); Mean Platelet Volume 9.9 FL (9.6-12.0); Neutrophils % 87.9 % (38.7-73.9); Platelet Count 262 T/CUMM (130-400); Red Blood Count 3.25 MC/CUMM (3.8-5.5); Red Cell Distribution Width 20.3 % (9.3-17.3); White Blood Count 27.4 T/CUMM (4-12)
[2018-10-06 05:25] LABS: Calcium 8.9 MG/DL (8.5-10.1); Osmolality,Calculated 302.6 MOS/KG (273-304); Prealbumin 29.2 MG/DL (20-40)
[2018-10-06 05:37] LABS: Band Neutrophils 2 % (0-10); Hypochromasia 1+; Lymphocytes 3 % (20-55); Microcytosis Slight; Platelet Estimate Adequate; Segmented Neutrophils 88 % (50-85); Total Cells Counted 100
[2018-10-06] MEDS: CLINDAMYCIN INJ 300 MG in PREMIX 1 EACH IV SCH ×3 (05:59→22:38)
[2018-10-06] MEDS: ARFORMOTEROL 15 MCG/2 ML NEB RESP TX SCH ×2 (07:15→20:21)
[2018-10-06] MEDS: BUDESONIDE 0.5 MG/2 ML NEB RESP TX SCH ×2 (07:15→20:21)
[2018-10-06] MEDS ORDERED: INSULIN GLARGINE 100 UNIT/ML SUBCUT SCH (08:30)
[2018-10-06] MEDS ORDERED: INSULIN LISPRO 100 UNIT/ML SUBCUT SCH (08:30)
[2018-10-06] MEDS: LACTULOSE 20 GM/30 ML UDCUP PO SCH ×2 (09:27→21:39)
[2018-10-06] MEDS: DOCUSATE SODIUM 100 MG CAPSULE PO SCH ×2 (09:27→21:39)
[2018-10-06] MEDS: TAMSULOSIN 0.4 MG CAPSULE PO SCH (12:02)
[2018-10-06] MEDS: METOPROLOL TARTRATE 25 MG TABLET PO SCH ×2 (12:02→21:38)
[2018-10-06] MEDS: FUROSEMIDE 20 MG TABLET PO SCH (12:02)
[2018-10-06] MEDS: LANSOPRAZOLE ODT 30 MG TABLET PER TUBE SCH (12:02)
[2018-10-06] MEDS: FERRIC GLUCONATE COMPLEX 125 MG in SODIUM CHLORIDE 0.9% 100 ML IV SCH (12:02)
[2018-10-06] MEDS: MULTIVITAMIN LIQUID (CENTRUM) 60 ML BOTTLE PER TUBE SCH (12:02)
[2018-10-06] MEDS: FLUDROCORTISONE 0.1 MG TABLET PO SCH (12:03)
[2018-10-06] MEDS: DILTIAZEM 90 MG TABLET PO SCH ×4 (12:04→21:38)
[2018-10-06] MEDS: methIMAzole 5 MG TABLET PO SCH (12:04)
[2018-10-06] MEDS: miSOPROStol 200 MCG TABLET PO SCH ×2 (12:04→16:18)
[2018-10-06] MEDS: MONTELUKAST 10 MG TABLET PO SCH (12:04)
[2018-10-06] MEDS: ALBUTEROL 0.4 MG/ML 30 ML/BOTTLE PO SCH ×4 (12:11→21:37)
[2018-10-06] MEDS: FLUTICASONE/SALMETEROL 250-50 DISKUS 14 DOSE INH SCH ×2 (12:13→21:38)
[2018-10-06] MEDS: ASPIRIN CHEW 81 MG TABLET PO SCH (12:15)
[2018-10-06] MEDS ORDERED: THEOPHYLLINE 5.33 MG/ML 30 ML/BOTTLE PO ONE (13:03)
[2018-10-06] MEDS: AMINOPHYLLINE 500 MG in SODIUM CHLORIDE 0.9% 480 ML IV SCH (14:12)
[2018-10-06] MEDS: ENOXAPARIN 40 MG/0.4 ML SYRINGE SUBCUT SCH (14:15)
[2018-10-06] MEDS: ALBUTEROL 2.5 MG/3 ML NEB RESP TX PRN (17:11)
[2018-10-06] MEDS: DONEPEZIL 10 MG TABLET PO SCH (21:38)
[2018-10-06] MEDS: QUEtiapine 25 MG TABLET PO SCH (21:38)
[2018-10-07] MEDS: ALBUTEROL/IPRATROPIUM 3 ML NEB RESP TX SCH ×4 (02:16→19:00)
[2018-10-07] MEDS: PIPERACILLIN/TAZOBACTAM 3,375 MG in SODIUM CHLORIDE 0.9% 100 ML IV SCH ×3 (02:26→18:50)
[2018-10-07] MEDS: methylPREDNISolone SOD SUC 40 MG/1 ML VIAL IV SCH ×2 (02:27→14:25)
[2018-10-07] MEDS: HYDROCORTISONE 100 MG VIAL IV SCH ×3 (02:27→20:29)
[2018-10-07 03:40] LABS: ABG Base Excess 12.6 MMOL/L (-2.5-2.5); ABG HCO3 37.8 MMOL/L (20-26); ABG PCO2 52.1 MM HG (35-48); ABG PH 7.478 (7.35-7.45); ABG PO2 118.4 MM HG (80-95); ABG TCO2 39.4 MMOL/L (23-27); Allen Test Positive
[2018-10-07 06:01] LABS: Basophils # 0.1 10*3/uL (0.0-0.2); Basophils % 0.3 % (0.0-0.8); Hematocrit 28.8 VOL% (42.0-52.0); Hemoglobin 8.5 GM/DL (14.0-18.0); Immature Granulocytes % 5.9 %; Immature Granulocytes Absolute 1.54 #; Lymphocytes # 0.4 10*3/uL (1.4-4.0); Lymphocytes % 1.6 % (21.2-54.2); Mean Corpuscular HGB Conc 29.5 GM/DL (32-36); Mean Platelet Volume 10.1 FL (9.6-12.0); Monocytes % 3.7 % (1.7-12.7); Neutrophils % 88.5 % (38.7-73.9); Platelet Count 252 T/CUMM (130-400); Red Blood Count 3.13 MC/CUMM (3.8-5.5); Red Cell Distribution Width 20.5 % (9.3-17.3); White Blood Count 26.2 T/CUMM (4-12)
[2018-10-07 06:12] LABS: Calcium 8.6 MG/DL (8.5-10.1); Osmolality,Calculated 299.7 MOS/KG (273-304)
[2018-10-07 06:25] LABS: Band Neutrophils 1 % (0-10); Hypochromasia 1+; Lymphocytes 7 % (20-55); Ovalocytes Slight; Platelet Estimate Adequate; Segmented Neutrophils 91 % (50-85); Total Cells Counted 100
[2018-10-07 06:26] LABS: Microcytosis Slight
[2018-10-07] MEDS: BUDESONIDE 0.5 MG/2 ML NEB RESP TX SCH ×2 (06:42→19:00)
[2018-10-07] MEDS: ARFORMOTEROL 15 MCG/2 ML NEB RESP TX SCH ×2 (06:42→19:00)
[2018-10-07] MEDS: CLINDAMYCIN INJ 300 MG in PREMIX 1 EACH IV SCH ×3 (06:49→23:20)
[2018-10-07] MEDS: THEOPHYLLINE 5.33 MG/ML 30 ML/BOTTLE PO SCH ×3 (06:49→20:34)
[2018-10-07] MEDS: ALBUTEROL 0.4 MG/ML 30 ML/BOTTLE PO SCH ×4 (08:39→20:34)
[2018-10-07] MEDS: MULTIVITAMIN LIQUID (CENTRUM) 60 ML BOTTLE PER TUBE SCH (08:40)
[2018-10-07] MEDS: methIMAzole 5 MG TABLET PO SCH (08:41)
[2018-10-07] MEDS: FUROSEMIDE 20 MG TABLET PO SCH (08:41)
[2018-10-07] MEDS: MONTELUKAST 10 MG TABLET PO SCH (08:41)
[2018-10-07] MEDS: INSULIN LISPRO 100 UNIT/ML SUBCUT SCH ×4 (08:41→21:13)
[2018-10-07] MEDS: DILTIAZEM 90 MG TABLET PO SCH ×4 (08:41→20:28)
[2018-10-07] MEDS: TAMSULOSIN 0.4 MG CAPSULE PO SCH (08:41)
[2018-10-07] MEDS: FLUTICASONE/SALMETEROL 250-50 DISKUS 14 DOSE INH SCH ×2 (08:42→20:34)
[2018-10-07] MEDS: FLUDROCORTISONE 0.1 MG TABLET PO SCH (08:42)
[2018-10-07] MEDS: LANSOPRAZOLE ODT 30 MG TABLET PER TUBE SCH (08:42)
[2018-10-07] MEDS: METOPROLOL TARTRATE 25 MG TABLET PO SCH ×2 (08:42→20:27)
[2018-10-07] MEDS: miSOPROStol 200 MCG TABLET PO SCH ×2 (08:42→16:39)
[2018-10-07] MEDS: ASPIRIN CHEW 81 MG TABLET PO SCH (08:42)
[2018-10-07] MEDS: DOCUSATE SODIUM 100 MG CAPSULE PO SCH ×2 (08:43→20:30)
[2018-10-07] MEDS: LACTULOSE 20 GM/30 ML UDCUP PO SCH ×2 (08:43→20:30)
[2018-10-07] MEDS: POTASSIUM CHLORIDE RIDER 10 MEQ in PREMIX 1 EACH IV SCH ×4 (09:16→14:28)
[2018-10-07] MEDS: FERRIC GLUCONATE COMPLEX 125 MG in SODIUM CHLORIDE 0.9% 100 ML IV SCH (10:11)
[2018-10-07] MEDS: ENOXAPARIN 40 MG/0.4 ML SYRINGE SUBCUT SCH (13:29)
[2018-10-07] MEDS ORDERED: POTASSIUM CHLORIDE RIDER 100 ML IV ONE (14:08)
[2018-10-07] MEDS: DONEPEZIL 10 MG TABLET PO SCH (20:28)
[2018-10-07] MEDS: QUEtiapine 25 MG TABLET PO SCH (20:28)
[2018-10-07] MEDS: INSULIN GLARGINE 100 UNIT/ML SUBCUT SCH (20:29)
[2018-10-08] MEDS: ALBUTEROL/IPRATROPIUM 3 ML NEB RESP TX SCH ×4 (00:40→19:25)
[2018-10-08] MEDS: PIPERACILLIN/TAZOBACTAM 3,375 MG in SODIUM CHLORIDE 0.9% 100 ML IV SCH (01:45)
[2018-10-08 03:01] LABS: ABG Base Excess 13.6 MMOL/L (-2.5-2.5); ABG HCO3 37.4 MMOL/L (20-26); ABG Oxygen Saturation 98.7 % (95-100); ABG PCO2 53.7 MM HG (35-48); ABG PH 7.471 (7.35-7.45); ABG TCO2 36.4 MMOL/L (23-27); Allen Test Positive
[2018-10-08] MEDS: methylPREDNISolone SOD SUC 40 MG/1 ML VIAL IV SCH ×2 (03:59→15:42)
[2018-10-08 05:07] LABS: Basophils % 0.2 % (0.0-0.8); Hematocrit 25.3 VOL% (42.0-52.0); Hemoglobin 7.8 GM/DL (14.0-18.0); Immature Granulocytes % 5.6 %; Immature Granulocytes Absolute 1.18 #; Lymphocytes # 0.4 10*3/uL (1.4-4.0); Mean Corpuscular HGB Conc 30.8 GM/DL (32-36); Mean Platelet Volume 10.4 FL (9.6-12.0); Monocytes % 4.8 % (1.7-12.7); Neutrophils % 87.4 % (38.7-73.9); Platelet Count 226 T/CUMM (130-400); Red Blood Count 2.78 MC/CUMM (3.8-5.5); Red Cell Distribution Width 20.2 % (9.3-17.3); White Blood Count 21.1 T/CUMM (4-12)
[2018-10-08 05:36] LABS: Calcium 8.1 MG/DL (8.5-10.1)
[2018-10-08 05:45] LABS: Band Neutrophils 3 % (0-10); Hypochromasia 1+; Lymphocytes 4 % (20-55); Platelet Estimate Adequate; Segmented Neutrophils 90 % (50-85); Total Cells Counted 100
[2018-10-08 05:46] LABS: Microcytosis Slight
[2018-10-08] MEDS: CLINDAMYCIN INJ 300 MG in PREMIX 1 EACH IV SCH ×3 (06:02→22:10)
[2018-10-08] MEDS: BUDESONIDE 0.5 MG/2 ML NEB RESP TX SCH ×2 (07:11→19:25)
[2018-10-08] MEDS: ARFORMOTEROL 15 MCG/2 ML NEB RESP TX SCH ×2 (07:11→19:25)
[2018-10-08] MEDS: HYDROCORTISONE 100 MG VIAL IV SCH ×2 (08:51→21:44)
[2018-10-08] MEDS: INSULIN LISPRO 100 UNIT/ML SUBCUT SCH ×4 (08:51→21:44)
[2018-10-08] MEDS: POTASSIUM CHLORIDE RIDER 10 MEQ in PREMIX 1 EACH IV PRN ×5 (08:52→21:37)
[2018-10-08] MEDS: INSULIN GLARGINE 100 UNIT/ML SUBCUT SCH (08:52)
[2018-10-08] MEDS: LANSOPRAZOLE ODT 30 MG TABLET PER TUBE SCH (08:53)
[2018-10-08] MEDS: FLUDROCORTISONE 0.1 MG TABLET PO SCH (08:53)
[2018-10-08] MEDS: FUROSEMIDE 20 MG TABLET PO SCH (08:53)
[2018-10-08] MEDS: MONTELUKAST 10 MG TABLET PO SCH (08:53)
[2018-10-08] MEDS: FLUTICASONE/SALMETEROL 250-50 DISKUS 14 DOSE INH SCH (08:53)
[2018-10-08] MEDS: miSOPROStol 200 MCG TABLET PO SCH ×2 (08:54→16:56)
[2018-10-08] MEDS: METOPROLOL TARTRATE 25 MG TABLET PO SCH ×2 (08:54→21:43)
[2018-10-08] MEDS: DILTIAZEM 90 MG TABLET PO SCH ×4 (08:54→21:41)
[2018-10-08] MEDS: ASPIRIN CHEW 81 MG TABLET PO SCH (08:54)
[2018-10-08] MEDS: TAMSULOSIN 0.4 MG CAPSULE PO SCH (08:55)
[2018-10-08] MEDS: THEOPHYLLINE 5.33 MG/ML 30 ML/BOTTLE PO SCH (08:57)
[2018-10-08] MEDS: ALBUTEROL 0.4 MG/ML 30 ML/BOTTLE PO SCH ×4 (08:58→21:44)
[2018-10-08] MEDS: DORNASE ALFA 2.5 MG/2.5 ML VIAL RESP TX SCH ×2 (09:25→19:25)
[2018-10-08] MEDS: LACTULOSE 20 GM/30 ML UDCUP PO SCH ×2 (09:42→21:40)
[2018-10-08 09:45] LABS: Free T4 (Free Thyroxine) 0.4 NG/DL (0.76-1.46); Thyroid Stimulating Hormone 0.956 uIU/ml (0.358-3.74)
[2018-10-08] MEDS: MULTIVITAMIN LIQUID (CENTRUM) 60 ML BOTTLE PER TUBE SCH (09:56)
[2018-10-08] MEDS: DOCUSATE SODIUM 100 MG CAPSULE PO SCH ×2 (10:19→21:42)
[2018-10-08] MEDS: MULTIVITAMIN (CENTRUM) TABLET PO SCH (10:19)
[2018-10-08] MEDS: FERRIC GLUCONATE COMPLEX 125 MG in SODIUM CHLORIDE 0.9% 100 ML IV SCH (10:19)
[2018-10-08] MEDS: SPIRONOLACTONE 25 MG TABLET PO SCH (10:19)
[2018-10-08] MEDS: methIMAzole 5 MG TABLET PO SCH (13:27)
[2018-10-08] MEDS: ENOXAPARIN 40 MG/0.4 ML SYRINGE SUBCUT SCH (15:41)
[2018-10-08] MEDS ORDERED: THEOPHYLLINE ER 200 MG TABLET PO SCH (21:00)
[2018-10-08] MEDS: DONEPEZIL 10 MG TABLET PO SCH (21:41)
[2018-10-08] MEDS: QUEtiapine 25 MG TABLET PO SCH (21:41)
[2018-10-08] MEDS: ACETAMINOPHEN 325 MG TABLET PO PRN (21:42)
[2018-10-08] MEDS: POTASSIUM CHLORIDE 20 MEQ TABLET PO SCH (21:44)
[2018-10-09] MEDS: ALBUTEROL/IPRATROPIUM 3 ML NEB RESP TX SCH ×4 (00:40→19:20)
[2018-10-09 00:56] LABS: Basophils # 0.1 10*3/uL (0.0-0.2); Basophils % 0.2 % (0.0-0.8); Hematocrit 26.3 VOL% (42.0-52.0); Immature Granulocytes % 4.4 %; Immature Granulocytes Absolute 1.07 #; Lymphocytes # 0.4 10*3/uL (1.4-4.0); Lymphocytes % 1.7 % (21.2-54.2); Mean Corpuscular HGB Conc 30.4 GM/DL (32-36); Monocytes % 2.8 % (1.7-12.7); Neutrophils % 90.9 % (38.7-73.9); Platelet Count 215 T/CUMM (130-400); Red Blood Count 2.86 MC/CUMM (3.8-5.5); Red Cell Distribution Width 20.8 % (9.3-17.3); White Blood Count 24.4 T/CUMM (4-12)
[2018-10-09 01:15] LABS: Calcium 8.4 MG/DL (8.5-10.1)
[2018-10-09 01:48] LABS: Band Neutrophils 3 % (0-10); Lymphocytes 5 % (20-55); Segmented Neutrophils 91 % (50-85); Total Cells Counted 100
[2018-10-09 01:49] LABS: Acanthocytes Few; Anisocytosis 1+; Hypochromasia 1+
[2018-10-09 01:50] LABS: Platelet Estimate Adequate
[2018-10-09] MEDS: FLUTICASONE/SALMETEROL 250-50 DISKUS 14 DOSE INH SCH ×3 (02:24→22:01)
[2018-10-09] MEDS: methylPREDNISolone SOD SUC 40 MG/1 ML VIAL IV SCH ×2 (02:25→14:40)
[2018-10-09 03:42] LABS: ABG Base Excess 11.7 MMOL/L (-2.5-2.5); ABG HCO3 35.1 MMOL/L (20-26); ABG PCO2 40.9 MM HG (35-48); ABG PH 7.551 (7.35-7.45); ABG PO2 93.3 MM HG (80-95); ABG TCO2 36.3 MMOL/L (23-27)
[2018-10-09] MEDS: ARFORMOTEROL 15 MCG/2 ML NEB RESP TX SCH ×2 (07:47→19:20)
[2018-10-09] MEDS: DORNASE ALFA 2.5 MG/2.5 ML VIAL RESP TX SCH ×2 (07:47→19:20)
[2018-10-09] MEDS: BUDESONIDE 0.5 MG/2 ML NEB RESP TX SCH ×2 (07:47→19:20)
[2018-10-09] MEDS: HYDROCORTISONE 100 MG VIAL IV SCH ×2 (08:45→21:58)
[2018-10-09] MEDS: CLINDAMYCIN INJ 300 MG in PREMIX 1 EACH IV SCH ×3 (08:46→22:10)
[2018-10-09] MEDS: MONTELUKAST 10 MG TABLET PO SCH (08:46)
[2018-10-09] MEDS: LANSOPRAZOLE ODT 30 MG TABLET PER TUBE SCH (08:47)
[2018-10-09] MEDS: MULTIVITAMIN (CENTRUM) TABLET PO SCH (08:47)
[2018-10-09] MEDS: DOCUSATE SODIUM 100 MG CAPSULE PO SCH ×2 (08:47→22:02)
[2018-10-09] MEDS: POTASSIUM CHLORIDE 20 MEQ TABLET PO SCH ×2 (08:47→22:00)
[2018-10-09] MEDS: miSOPROStol 200 MCG TABLET PO SCH ×2 (08:47→17:01)
[2018-10-09] MEDS: FUROSEMIDE 20 MG TABLET PO SCH (08:47)
[2018-10-09] MEDS: ASPIRIN CHEW 81 MG TABLET PO SCH (08:47)
[2018-10-09] MEDS: TAMSULOSIN 0.4 MG CAPSULE PO SCH (08:47)
[2018-10-09] MEDS: FLUDROCORTISONE 0.1 MG TABLET PO SCH (08:47)
[2018-10-09] MEDS: METOPROLOL TARTRATE 25 MG TABLET PO SCH ×2 (08:48→22:00)
[2018-10-09] MEDS: methIMAzole 5 MG TABLET PO SCH (08:48)
[2018-10-09] MEDS: DILTIAZEM 90 MG TABLET PO SCH ×4 (08:48→22:00)
[2018-10-09] MEDS: SPIRONOLACTONE 25 MG TABLET PO SCH (08:48)
[2018-10-09] MEDS: ALBUTEROL 0.4 MG/ML 30 ML/BOTTLE PO SCH ×4 (08:49→21:55)
[2018-10-09] MEDS ORDERED: THEOPHYLLINE ER (24 HR) 200 MG CAPSULE PO SCH (09:00)
[2018-10-09] MEDS: THEOPHYLLINE ER (24 HR) 200 MG CAPSULE PO SCH (10:15)
[2018-10-09] MEDS: FERRIC GLUCONATE COMPLEX 125 MG in SODIUM CHLORIDE 0.9% 100 ML IV SCH (10:15)
[2018-10-09] MEDS: INSULIN LISPRO 100 UNIT/ML SUBCUT SCH ×4 (10:30→22:02)
[2018-10-09] MEDS: LACTULOSE 20 GM/30 ML UDCUP PO SCH ×2 (10:30→22:02)
[2018-10-09] MEDS: INSULIN GLARGINE 100 UNIT/ML SUBCUT SCH (10:31)
[2018-10-09] MEDS: ALBUTEROL 2.5 MG/3 ML NEB RESP TX PRN (10:51)
[2018-10-09] MEDS ORDERED: TISSUE ADHESIVE 1 EACH APPLICATOR TOP ONE ×2 (11:17→12:14)
[2018-10-09] MEDS ORDERED: LIDOCAINE 1% 20 ML VIAL ONE (11:17)
[2018-10-09] MEDS ORDERED: DEXAMETHASONE 10 MG/1 ML VIAL ONE (11:17)
[2018-10-09 11:45] LABS: INR 1.1; PT Patient Result 11.6 SECS; Partial Thromboplastin Time 28.4 SECS (0-40)
[2018-10-09] MEDS ORDERED: LACTATED RINGERS 1,000 ML IV SCH (12:00)
[2018-10-09] MEDS ORDERED: MIDAZOLAM 2 MG/2 ML VIAL ONE (12:42)
[2018-10-09] MEDS ORDERED: PROPOFOL 200 MG/20 ML VIAL IV ONE (12:42)
[2018-10-09] MEDS ORDERED: KETAMINE 500 MG/10 ML VIAL ONE (12:42)
[2018-10-09] MEDS: QUEtiapine 25 MG TABLET PO SCH (22:01)
[2018-10-09] MEDS: DONEPEZIL 10 MG TABLET PO SCH (22:01)
[2018-10-10] MEDS: ALBUTEROL/IPRATROPIUM 3 ML NEB RESP TX SCH ×4 (00:58→19:17)
[2018-10-10] MEDS: methylPREDNISolone SOD SUC 40 MG/1 ML VIAL IV SCH ×2 (03:17→14:04)
[2018-10-10 03:52] LABS: ABG Base Excess 11.3 MMOL/L (-2.5-2.5); ABG HCO3 35.1 MMOL/L (20-26); ABG Oxygen Saturation 97.4 % (95-100); ABG PCO2 50.8 MM HG (35-48); ABG PH 7.468 (7.35-7.45); ABG PO2 83.9 MM HG (80-95); ABG TCO2 33.4 MMOL/L (23-27); Allen Test Positive
[2018-10-10] MEDS: CLINDAMYCIN INJ 300 MG in PREMIX 1 EACH IV SCH ×3 (07:05→22:33)
[2018-10-10] MEDS: BUDESONIDE 0.5 MG/2 ML NEB RESP TX SCH ×2 (07:22→19:17)
[2018-10-10] MEDS: DORNASE ALFA 2.5 MG/2.5 ML VIAL RESP TX SCH ×2 (07:22→19:17)
[2018-10-10] MEDS: ARFORMOTEROL 15 MCG/2 ML NEB RESP TX SCH ×2 (07:22→19:17)
[2018-10-10 07:23] LABS: Basophils % 0.2 % (0.0-0.8); Hematocrit 27.9 VOL% (42.0-52.0); Hemoglobin 8.5 GM/DL (14.0-18.0); Immature Granulocytes % 3.2 %; Immature Granulocytes Absolute 0.82 #; Lymphocytes # 0.4 10*3/uL (1.4-4.0); Lymphocytes % 1.4 % (21.2-54.2); Mean Corpuscular HGB Conc 30.5 GM/DL (32-36); Mean Corpuscular Volume 92.7 FL (87-102); Mean Platelet Volume 11.2 FL (9.6-12.0); Monocytes % 1.9 % (1.7-12.7); Neutrophils % 93.3 % (38.7-73.9); Platelet Count 195 T/CUMM (130-400); Red Blood Count 3.01 MC/CUMM (3.8-5.5); Red Cell Distribution Width 21.4 % (9.3-17.3); White Blood Count 25.4 T/CUMM (4-12)
[2018-10-10 07:43] LABS: Band Neutrophils 4 % (0-10); Hypochromasia 1+; Lymphocytes 4 % (20-55); Ovalocytes Slight; Platelet Estimate Adequate; Segmented Neutrophils 89 % (50-85); Total Cells Counted 100
[2018-10-10 07:56] LABS: Calcium 8.7 MG/DL (8.5-10.1)
[2018-10-10] MEDS: ASPIRIN CHEW 81 MG TABLET PO SCH (09:09)
[2018-10-10] MEDS: SPIRONOLACTONE 25 MG TABLET PO SCH (09:09)
[2018-10-10] MEDS: INSULIN LISPRO 100 UNIT/ML SUBCUT SCH ×4 (09:09→20:49)
[2018-10-10] MEDS: FLUTICASONE/SALMETEROL 250-50 DISKUS 14 DOSE INH SCH ×2 (09:09→20:48)
[2018-10-10] MEDS: DILTIAZEM 90 MG TABLET PO SCH ×4 (09:09→20:48)
[2018-10-10] MEDS: miSOPROStol 200 MCG TABLET PO SCH ×2 (09:09→16:33)
[2018-10-10] MEDS: LACTULOSE 20 GM/30 ML UDCUP PO SCH ×2 (09:10→20:49)
[2018-10-10] MEDS: POTASSIUM CHLORIDE 20 MEQ TABLET PO SCH ×2 (09:10→20:47)
[2018-10-10] MEDS: LANSOPRAZOLE ODT 30 MG TABLET PER TUBE SCH (09:10)
[2018-10-10] MEDS: FUROSEMIDE 20 MG TABLET PO SCH (09:10)
[2018-10-10] MEDS: INSULIN GLARGINE 100 UNIT/ML SUBCUT SCH (09:10)
[2018-10-10] MEDS: MULTIVITAMIN (CENTRUM) TABLET PO SCH (09:10)
[2018-10-10] MEDS: DOCUSATE SODIUM 100 MG CAPSULE PO SCH ×2 (09:10→20:49)
[2018-10-10] MEDS: TAMSULOSIN 0.4 MG CAPSULE PO SCH (09:10)
[2018-10-10] MEDS: METOPROLOL TARTRATE 25 MG TABLET PO SCH ×2 (09:10→20:47)
[2018-10-10] MEDS: ALBUTEROL 0.4 MG/ML 30 ML/BOTTLE PO SCH ×4 (09:11→20:49)
[2018-10-10] MEDS: THEOPHYLLINE ER (24 HR) 200 MG CAPSULE PO SCH (09:11)
[2018-10-10] MEDS: MONTELUKAST 10 MG TABLET PO SCH (09:11)
[2018-10-10] MEDS: HYDROCORTISONE 100 MG VIAL IV SCH (09:11)
[2018-10-10] MEDS: MEROPENEM 1,000 MG in SYRINGE 1 EACH IV SCH ×2 (10:23→16:34)
[2018-10-10] MEDS: ACETAMINOPHEN 325 MG TABLET PO PRN (12:20)
[2018-10-10] MEDS: QUEtiapine 25 MG TABLET PO SCH (20:47)
[2018-10-10] MEDS: DONEPEZIL 10 MG TABLET PO SCH (20:48)
[2018-10-11] MEDS: ALBUTEROL/IPRATROPIUM 3 ML NEB RESP TX SCH ×4 (00:49→19:22)
[2018-10-11] MEDS: MEROPENEM 1,000 MG in SYRINGE 1 EACH IV SCH ×2 (01:57→10:43)
[2018-10-11] MEDS: methylPREDNISolone SOD SUC 40 MG/1 ML VIAL IV SCH ×2 (02:00→14:14)
[2018-10-11 03:28] LABS: ABG Base Excess 10.4 MMOL/L (-2.5-2.5); ABG HCO3 34.2 MMOL/L (20-26); ABG PCO2 54.3 MM HG (35-48); ABG PH 7.434 (7.35-7.45); ABG PO2 81.2 MM HG (80-95); ABG TCO2 33.2 MMOL/L (23-27); Allen Test Positive
[2018-10-11 05:35] LABS: Basophils # 0.1 10*3/uL (0.0-0.2); Basophils % 0.2 % (0.0-0.8); Hematocrit 29.8 VOL% (42.0-52.0); Hemoglobin 8.9 GM/DL (14.0-18.0); Immature Granulocytes % 3.3 %; Immature Granulocytes Absolute 0.82 #; Lymphocytes # 0.3 10*3/uL (1.4-4.0); Lymphocytes % 1.2 % (21.2-54.2); Mean Corpuscular HGB Conc 29.9 GM/DL (32-36); Mean Corpuscular Volume 93.4 FL (87-102); Monocytes % 1.9 % (1.7-12.7); Neutrophils % 93.4 % (38.7-73.9); Platelet Count 171 T/CUMM (130-400); Red Blood Count 3.19 MC/CUMM (3.8-5.5)
[2018-10-11 06:08] LABS: Calcium 8.4 MG/DL (8.5-10.1); Osmolality,Calculated 293.8 MOS/KG (273-304)
[2018-10-11] MEDS: CLINDAMYCIN INJ 300 MG in PREMIX 1 EACH IV SCH ×3 (06:28→21:32)
[2018-10-11 06:44] LABS: Anisocytosis 1+; Hypochromasia 1+; Lymphocytes 4 % (20-55); Microcytosis 1+; Ovalocytes 1+; Segmented Neutrophils 93 % (50-85); Spherocytes Slight; Total Cells Counted 100
[2018-10-11 06:49] LABS: Platelet Estimate Adequate
[2018-10-11] MEDS: BUDESONIDE 0.5 MG/2 ML NEB RESP TX SCH ×2 (07:23→19:22)
[2018-10-11] MEDS: ARFORMOTEROL 15 MCG/2 ML NEB RESP TX SCH ×2 (07:23→19:22)
[2018-10-11] MEDS: DORNASE ALFA 2.5 MG/2.5 ML VIAL RESP TX SCH ×2 (07:36→19:22)
[2018-10-11] MEDS: ALBUTEROL 0.4 MG/ML 30 ML/BOTTLE PO SCH ×4 (10:43→21:41)
[2018-10-11] MEDS: FLUTICASONE/SALMETEROL 250-50 DISKUS 14 DOSE INH SCH ×2 (10:43→21:46)
[2018-10-11] MEDS: LACTULOSE 20 GM/30 ML UDCUP PO SCH ×2 (10:43→21:31)
[2018-10-11] MEDS: MONTELUKAST 10 MG TABLET PO SCH (10:44)
[2018-10-11] MEDS: THEOPHYLLINE ER (24 HR) 200 MG CAPSULE PO SCH (10:44)
[2018-10-11] MEDS: TAMSULOSIN 0.4 MG CAPSULE PO SCH (10:44)
[2018-10-11] MEDS: DILTIAZEM 90 MG TABLET PO SCH ×4 (10:44→21:32)
[2018-10-11] MEDS: miSOPROStol 200 MCG TABLET PO SCH ×2 (10:44→17:27)
[2018-10-11] MEDS: SPIRONOLACTONE 25 MG TABLET PO SCH (10:44)
[2018-10-11] MEDS: FUROSEMIDE 20 MG TABLET PO SCH (10:44)
[2018-10-11] MEDS: METOPROLOL TARTRATE 25 MG TABLET PO SCH ×2 (10:45→21:32)
[2018-10-11] MEDS: LANSOPRAZOLE ODT 30 MG TABLET PER TUBE SCH (10:45)
[2018-10-11] MEDS: POTASSIUM CHLORIDE 20 MEQ TABLET PO SCH ×2 (10:45→21:32)
[2018-10-11] MEDS: MULTIVITAMIN (CENTRUM) TABLET PO SCH (10:45)
[2018-10-11] MEDS: ASPIRIN CHEW 81 MG TABLET PO SCH (10:46)
[2018-10-11] MEDS: INSULIN GLARGINE 100 UNIT/ML SUBCUT SCH (10:46)
[2018-10-11] MEDS: INSULIN LISPRO 100 UNIT/ML SUBCUT SCH ×4 (10:46→21:31)
[2018-10-11] MEDS: DOCUSATE SODIUM 100 MG CAPSULE PO SCH ×2 (10:46→21:32)
[2018-10-11] MEDS: ERGOCALCIFEROL 50,000 UNIT CAPSULE PO SCH (13:22)
[2018-10-11] MEDS: cefTRIAXone 2,000 MG in SYRINGE 1 EACH IV SCH (15:40)
[2018-10-11] MEDS: QUEtiapine 25 MG TABLET PO SCH (21:32)
[2018-10-11] MEDS: DONEPEZIL 10 MG TABLET PO SCH (21:32)
[2018-10-12] MEDS: ALBUTEROL/IPRATROPIUM 3 ML NEB RESP TX SCH ×4 (01:19→19:27)
[2018-10-12] MEDS: methylPREDNISolone SOD SUC 40 MG/1 ML VIAL IV SCH ×2 (02:56→15:49)
[2018-10-12 04:24] LABS: ABG Base Excess 11.2 MMOL/L (-2.5-2.5); ABG HCO3 34.8 MMOL/L (20-26); ABG Oxygen Saturation 88.4 % (95-100); ABG PCO2 53.3 MM HG (35-48); ABG PH 7.449 (7.35-7.45); ABG PO2 53.3 MM HG (80-95); ABG TCO2 34.1 MMOL/L (23-27); Allen Test Positive
[2018-10-12 05:42] LABS: Basophils % 0.1 % (0.0-0.8); Hematocrit 28.2 VOL% (42.0-52.0); Hemoglobin 8.7 GM/DL (14.0-18.0); Immature Granulocytes Absolute 0.65 #; Lymphocytes # 0.3 10*3/uL (1.4-4.0); Lymphocytes % 1.3 % (21.2-54.2); Mean Corpuscular HGB Conc 30.9 GM/DL (32-36); Mean Corpuscular Volume 93.7 FL (87-102); Mean Platelet Volume 9.8 FL (9.6-12.0); Monocytes % 2.4 % (1.7-12.7); Neutrophils % 93.2 % (38.7-73.9); Platelet Count 215 T/CUMM (130-400); Red Blood Count 3.01 MC/CUMM (3.8-5.5); Red Cell Distribution Width 22.5 % (9.3-17.3); White Blood Count 21.6 T/CUMM (4-12)
[2018-10-12 06:02] LABS: Anisocytosis 1+; Hypochromasia 1+; Lymphocytes 3 % (20-55); Microcytosis 1+; Platelet Estimate Normal; Segmented Neutrophils 94 % (50-85); Total Cells Counted 100
[2018-10-12] MEDS: CLINDAMYCIN INJ 300 MG in PREMIX 1 EACH IV SCH ×3 (06:03→22:14)
[2018-10-12 06:08] LABS: Calcium 8.4 MG/DL (8.5-10.1)
[2018-10-12] MEDS: ARFORMOTEROL 15 MCG/2 ML NEB RESP TX SCH ×2 (07:21→19:27)
[2018-10-12] MEDS: BUDESONIDE 0.5 MG/2 ML NEB RESP TX SCH ×2 (07:21→19:27)
[2018-10-12] MEDS: DORNASE ALFA 2.5 MG/2.5 ML VIAL RESP TX SCH ×2 (07:21→19:27)
[2018-10-12] MEDS: INSULIN GLARGINE 100 UNIT/ML SUBCUT SCH (08:19)
[2018-10-12] MEDS: INSULIN LISPRO 100 UNIT/ML SUBCUT SCH ×4 (08:19→22:45)
[2018-10-12] MEDS: SPIRONOLACTONE 25 MG TABLET PO SCH (08:21)
[2018-10-12] MEDS: FUROSEMIDE 20 MG TABLET PO SCH (08:21)
[2018-10-12] MEDS: MULTIVITAMIN (CENTRUM) TABLET PO SCH (08:21)
[2018-10-12] MEDS: DILTIAZEM 90 MG TABLET PO SCH ×4 (08:21→22:13)
[2018-10-12] MEDS: MONTELUKAST 10 MG TABLET PO SCH (08:21)
[2018-10-12] MEDS: TAMSULOSIN 0.4 MG CAPSULE PO SCH (08:22)
[2018-10-12] MEDS: miSOPROStol 200 MCG TABLET PO SCH ×2 (08:22→17:27)
[2018-10-12] MEDS: METOPROLOL TARTRATE 25 MG TABLET PO SCH ×2 (08:22→22:13)
[2018-10-12] MEDS: THEOPHYLLINE ER (24 HR) 200 MG CAPSULE PO SCH (08:23)
[2018-10-12] MEDS: ASPIRIN CHEW 81 MG TABLET PO SCH (08:23)
[2018-10-12] MEDS: DOCUSATE SODIUM 100 MG CAPSULE PO SCH ×2 (08:23→22:13)
[2018-10-12] MEDS: POTASSIUM CHLORIDE 20 MEQ TABLET PO SCH ×2 (08:23→22:13)
[2018-10-12] MEDS: LANSOPRAZOLE ODT 30 MG TABLET PER TUBE SCH (08:24)
[2018-10-12] MEDS: ALBUTEROL 0.4 MG/ML 30 ML/BOTTLE PO SCH ×4 (08:27→22:12)
[2018-10-12] MEDS: LACTULOSE 20 GM/30 ML UDCUP PO SCH ×2 (08:27→22:12)
[2018-10-12] MEDS: FLUTICASONE/SALMETEROL 250-50 DISKUS 14 DOSE INH SCH ×2 (08:28→22:14)
[2018-10-12] MEDS: cefTRIAXone 2,000 MG in SYRINGE 1 EACH IV SCH (14:13)
[2018-10-12] MEDS ORDERED: LORazepam 2 MG/1 ML VIAL IV ONE (20:53)
[2018-10-12] MEDS: DONEPEZIL 10 MG TABLET PO SCH (22:13)
[2018-10-12] MEDS: QUEtiapine 25 MG TABLET PO SCH (22:13)
[2018-10-13] MEDS: ALBUTEROL/IPRATROPIUM 3 ML NEB RESP TX SCH ×2 (00:57→07:30)
[2018-10-13] MEDS: methylPREDNISolone SOD SUC 40 MG/1 ML VIAL IV SCH ×2 (03:37→14:04)
[2018-10-13 03:52] LABS: ABG Base Excess 9.7 MMOL/L (-2.5-2.5); ABG HCO3 33.4 MMOL/L (20-26); ABG Oxygen Saturation 96.5 % (95-100); ABG PCO2 48.3 MM HG (35-48); ABG PH 7.466 (7.35-7.45); ABG PO2 78.3 MM HG (80-95); ABG TCO2 31.6 MMOL/L (23-27); Allen Test Positive
[2018-10-13 05:12] LABS: Basophils % 0.1 % (0.0-0.8); Hematocrit 26.6 VOL% (42.0-52.0); Hemoglobin 8.3 GM/DL (14.0-18.0); Immature Granulocytes % 2.3 %; Immature Granulocytes Absolute 0.47 #; Lymphocytes # 0.2 10*3/uL (1.4-4.0); Lymphocytes % 0.9 % (21.2-54.2); Mean Corpuscular HGB Conc 31.2 GM/DL (32-36); Mean Corpuscular Volume 92.7 FL (87-102); Mean Platelet Volume 10.3 FL (9.6-12.0); Monocytes % 2.3 % (1.7-12.7); NRBC # 0.02 10*3/uL; Neutrophils % 94.4 % (38.7-73.9); Platelet Count 235 T/CUMM (130-400); Red Blood Count 2.87 MC/CUMM (3.8-5.5); Red Cell Distribution Width 22.6 % (9.3-17.3); White Blood Count 20.7 T/CUMM (4-12)
[2018-10-13 05:19] LABS: Calcium 8.1 MG/DL (8.5-10.1); Osmolality,Calculated 292.1 MOS/KG (273-304)
[2018-10-13 05:46] LABS: Band Neutrophils 1 % (0-10); Lymphocytes 2 % (20-55); Platelet Estimate Normal; Segmented Neutrophils 96 % (50-85); Total Cells Counted 100
[2018-10-13] MEDS: CLINDAMYCIN INJ 300 MG in PREMIX 1 EACH IV SCH ×2 (06:24→14:06)
[2018-10-13] MEDS: BUDESONIDE 0.5 MG/2 ML NEB RESP TX SCH (07:30)
[2018-10-13] MEDS: ARFORMOTEROL 15 MCG/2 ML NEB RESP TX SCH (07:30)
[2018-10-13] MEDS: DORNASE ALFA 2.5 MG/2.5 ML VIAL RESP TX SCH (07:35)
[2018-10-13] MEDS: DOCUSATE SODIUM 100 MG CAPSULE PO SCH (09:08)
[2018-10-13] MEDS: MONTELUKAST 10 MG TABLET PO SCH (09:08)
[2018-10-13] MEDS: POTASSIUM CHLORIDE 20 MEQ TABLET PO SCH (09:09)
[2018-10-13] MEDS: SPIRONOLACTONE 25 MG TABLET PO SCH (09:09)
[2018-10-13] MEDS: ASPIRIN CHEW 81 MG TABLET PO SCH (09:09)
[2018-10-13] MEDS: miSOPROStol 200 MCG TABLET PO SCH (09:09)
[2018-10-13] MEDS: THEOPHYLLINE ER (24 HR) 200 MG CAPSULE PO SCH (09:09)
[2018-10-13] MEDS: DILTIAZEM 90 MG TABLET PO SCH ×2 (09:09→14:04)
[2018-10-13] MEDS: METOPROLOL TARTRATE 25 MG TABLET PO SCH (09:09)
[2018-10-13] MEDS: FUROSEMIDE 20 MG TABLET PO SCH (09:09)
[2018-10-13] MEDS: MULTIVITAMIN (CENTRUM) TABLET PO SCH (09:09)
[2018-10-13] MEDS: TAMSULOSIN 0.4 MG CAPSULE PO SCH (09:09)
[2018-10-13] MEDS: ALBUTEROL 0.4 MG/ML 30 ML/BOTTLE PO SCH ×2 (09:11→14:05)
[2018-10-13] MEDS: INSULIN GLARGINE 100 UNIT/ML SUBCUT SCH (09:11)
[2018-10-13] MEDS: INSULIN LISPRO 100 UNIT/ML SUBCUT SCH ×2 (09:11→14:04)
[2018-10-13] MEDS: FLUTICASONE/SALMETEROL 250-50 DISKUS 14 DOSE INH SCH (09:13)
[2018-10-13] MEDS: LANSOPRAZOLE ODT 30 MG TABLET PER TUBE SCH (09:13)
[2018-10-13] MEDS: LACTULOSE 20 GM/30 ML UDCUP PO SCH (09:13)
[2018-10-13] MEDS ORDERED: cefTAZidime 1,000 MG in SYRINGE 1 EACH IV SCH (10:00)
[2018-10-13 12:27] VITALS: BP 136/91
== END 2018-10-13 15:13 | DRG 166 ==
LOC: EDUNIT# → EDBD → N.ED 11:39 → N.EDINP 13:56 → SUATTDRO 13:56 → N.ICU 14:25 → N.5E 10-07 18:51
PROVIDERS: ADMIT Internal Medicine; ATTEND Internal Medicine

== ENCOUNTER 2018-11-29 08:35 | Observation (INO) ==
[2018-11-29] MEDS ORDERED: guaiFENesin/DM ER 600-30 MG TABLET PO PRN (12:30)
[2018-11-29] MEDS ORDERED: ONDANSETRON 4 MG/2 ML VIAL IV PRN (12:30)
[2018-11-29] MEDS ORDERED: LACTULOSE 20 GM/30 ML UDCUP PO PRN (12:30)
[2018-11-29] MEDS ORDERED: ACETAMINOPHEN 325 MG TABLET PO PRN (12:30)
[2018-11-29] MEDS ORDERED: BISACODYL 5 MG TABLET PO PRN (12:30)
[2018-11-29] MEDS ORDERED: DEXTROSE 10% 250 ML BAG IV PRN (12:30)
[2018-11-29] MEDS ORDERED: GLUCAGON 1 MG VIAL IM PRN (12:30)
[2018-11-29] MEDS ORDERED: NICOTINE 21 MG/24 HR PATCH TRANSDERM PRN (12:30)
[2018-11-29] MEDS ORDERED: AZITHROMYCIN INJ 500 MG in SODIUM CHLORIDE 0.9% 250 ML IV SCH (13:30)
[2018-11-29] MEDS ORDERED: ERGOCALCIFEROL 50,000 UNIT CAPSULE PO SCH (13:30)
[2018-11-29] MEDS ORDERED: cefTRIAXone 1,000 MG in SYRINGE 1 EACH IV SCH (14:00)
[2018-11-29] MEDS: methylPREDNISolone SOD SUC 40 MG/1 ML VIAL IV SCH ×2 (14:18→21:14)
[2018-11-29] MEDS: SODIUM CHLORIDE 0.9% 1,000 ML IV SCH (14:19)
[2018-11-29 14:26] LABS: Calcium 9.9 MG/DL (8.5-10.1); Osmolality,Calculated 286.8 MOS/KG (273-304)
[2018-11-29] MEDS: LEVALBUTEROL 1.25 MG/3 ML NEB RESP TX SCH ×3 (14:27→23:55)
[2018-11-29] MEDS: INSULIN REGULAR 100 UNIT/ML SUBCUT SCH ×2 (17:05→21:09)
[2018-11-29] MEDS: GABAPENTIN 100 MG CAPSULE PO SCH ×2 (17:05→21:12)
[2018-11-29] MEDS: DILTIAZEM 90 MG TABLET PO SCH ×2 (17:05→21:12)
[2018-11-29] MEDS: ARFORMOTEROL 15 MCG/2 ML NEB RESP TX SCH (20:26)
[2018-11-29] MEDS: DORNASE ALFA 2.5 MG/2.5 ML VIAL RESP TX SCH (20:26)
[2018-11-29] MEDS ORDERED: DONEPEZIL 10 MG TABLET PO SCH (21:00)
[2018-11-29] MEDS ORDERED: QUEtiapine 25 MG TABLET PO SCH (21:00)
[2018-11-29] MEDS ORDERED: ENOXAPARIN 40 MG/0.4 ML SYRINGE SUBCUT SCH (21:00)
[2018-11-29] MEDS: METOPROLOL TARTRATE 25 MG TABLET PO SCH (21:12)
[2018-11-29] MEDS: DOCUSATE SODIUM 100 MG CAPSULE PO SCH (21:12)
[2018-11-29] MEDS: ENOXAPARIN 60 MG/0.6 ML SYRINGE SUBCUT SCH (21:17)
[2018-11-30] MEDS: SODIUM CHLORIDE 0.9% 1,000 ML IV SCH (00:02)
[2018-11-30] MEDS: LEVALBUTEROL 1.25 MG/3 ML NEB RESP TX SCH ×3 (03:25→10:25)
[2018-11-30] MEDS: methylPREDNISolone SOD SUC 40 MG/1 ML VIAL IV SCH (05:05)
[2018-11-30 05:10] LABS: Basophils % 0.3 % (0.0-0.8); Hemoglobin 10.6 GM/DL (14.0-18.0); Immature Granulocytes % 2.9 %; Immature Granulocytes Absolute 0.44 #; Lymphocytes # 0.8 10*3/uL (1.4-4.0); Lymphocytes % 5.2 % (21.2-54.2); Mean Corpuscular HGB Conc 32.1 GM/DL (32-36); Mean Corpuscular Volume 93.2 FL (87-102); Monocytes % 1.3 % (1.7-12.7); Neutrophils % 90.3 % (38.7-73.9); Platelet Count 288 T/CUMM (130-400); Red Blood Count 3.54 MC/CUMM (3.8-5.5); Red Cell Distribution Width 18.2 % (9.3-17.3)
[2018-11-30 05:36] LABS: Albumin 2.6 G/DL (3.4-5.0); Bilirubin,Total 0.6 MG/DL (0.2-1.0); Calcium 8.8 MG/DL (8.5-10.1); Osmolality,Calculated 286.1 MOS/KG (273-304); Risk Ratio 2.23; Thyroid Stimulating Hormone 0.279 uIU/ml (0.358-3.74); Total Protein 5.7 G/DL (6.4-8.3); VLDL CHOLESTEROL 32.6 MG/DL
[2018-11-30 06:21] LABS: Apearance,Urine CLEAR (Clear); Bilirubin,Urine Negative (Negative); Blood, Urine Negative (Negative); Glucose,Urine (UA) >=500 mg/dL (Negative); Hyaline Casts,Urine 4 /LPF (0-3); Ketones,Urine 5 mg/dL (Negative); Mucus,Urine Occasional /LPF (Occasional); Nitrite,Urine Negative (Negative); Protein,Urine Negative; RBC,Urine 3 /HPF (0-4); Squamous Epithelial Cell,Urine Occasional /HPF (0-10); Urine Color Yellow (Yellow); Urine Specific Gravity 1.028 (1.001-1.035); Urine Urobilinogen < 2.0 EU/DL (0.2-1.0); WBC,Urine 3 /HPF (0-6)
[2018-11-30] MEDS: DORNASE ALFA 2.5 MG/2.5 ML VIAL RESP TX SCH (07:36)
[2018-11-30] MEDS: ARFORMOTEROL 15 MCG/2 ML NEB RESP TX SCH (07:36)
[2018-11-30] MEDS: DOCUSATE SODIUM 100 MG CAPSULE PO SCH (08:38)
[2018-11-30] MEDS: DILTIAZEM 90 MG TABLET PO SCH (08:38)
[2018-11-30] MEDS: METOPROLOL TARTRATE 25 MG TABLET PO SCH (08:38)
[2018-11-30] MEDS: GABAPENTIN 100 MG CAPSULE PO SCH (08:38)
[2018-11-30] MEDS: ENOXAPARIN 60 MG/0.6 ML SYRINGE SUBCUT SCH (08:40)
[2018-11-30] MEDS: INSULIN REGULAR 100 UNIT/ML SUBCUT SCH (08:41)
[2018-11-30] MEDS ORDERED: INSULIN GLARGINE 100 UNIT/ML SUBCUT SCH (09:00)
[2018-11-30] MEDS ORDERED: PANTOPRAZOLE 40 MG TABLET PO SCH (09:00)
[2018-11-30] MEDS ORDERED: MONTELUKAST 10 MG TABLET PO SCH (09:00)
[2018-11-30] MEDS ORDERED: MULTIVITAMIN (CENTRUM) TABLET PO SCH (09:00)
[2018-11-30] MEDS ORDERED: THEOPHYLLINE ER (24 HR) 400 MG CAPSULE PO SCH (09:00)
[2018-11-30] MEDS ORDERED: ASPIRIN EC 81 MG TABLET PO SCH (09:00)
[2018-11-30] MEDS ORDERED: TAMSULOSIN 0.4 MG CAPSULE PO SCH (09:00)
[2018-11-30 12:19] VITALS: BP 148/95
== END 2018-11-30 12:44 | disposition home health service (06) ==
LOC: N.5E
PROVIDERS: ADMIT Internal Medicine; ATTEND Internal Medicine

== ENCOUNTER 2018-12-25 02:57 | Inpatient (IN) ==
[2018-12-25] MEDS ORDERED: DILTIAZEM 25 MG/5 ML VIAL IV ONE (03:02)
[2018-12-25] MEDS ORDERED: DILTIAZEM 50 MG/10 ML VIAL IV STA ×3 (03:06→06:02)
[2018-12-25] MEDS ORDERED: SODIUM CHLORIDE 0.9% 500 ML IV STA (03:06)
[2018-12-25 03:20] LABS: Basophils # 0.2 10*3/uL (0.0-0.2); Basophils % 0.4 % (0.0-0.8); Hematocrit 41.9 VOL% (42.0-52.0); Hemoglobin 14.3 GM/DL (14.0-18.0); Immature Granulocytes % 4.3 %; Immature Granulocytes Absolute 1.47 #; Lymphocytes % 2.9 % (21.2-54.2); Mean Corpuscular HGB Conc 34.1 GM/DL (32-36); Mean Corpuscular Volume 86.9 FL (87-102); Neutrophils % 88.4 % (38.7-73.9); Platelet Count 243 T/CUMM (130-400); Red Blood Count 4.82 MC/CUMM (3.8-5.5); Red Cell Distribution Width 15.7 % (9.3-17.3); White Blood Count 34.5 T/CUMM (4-12)
[2018-12-25 03:27] LABS: PT Patient Result 11.3 SECS (9.6-12.2)
[2018-12-25] MEDS ORDERED: METOPROLOL TARTRATE 5 MG/5 ML VIAL IV ONE (03:37)
[2018-12-25 03:39] LABS: Barbiturates Screen,Urine Negative (Negative); Benzodiazepines Screen,Urine Negative (Negative); Cannabinoid Screen,Urine Negative (Negative); Opiate Screen,Urine Negative (Negative); Phencyclidine Screen,Urine Negative (Negative)
[2018-12-25] MEDS ORDERED: METOPROLOL TARTRATE 5 MG/5 ML VIAL IV STA (03:42)
[2018-12-25 03:48] LABS: Alanine Aminotransferase 23 U/L (16-61); Albumin 3.1 G/DL (3.4-5.0); Alkaline Phosphatase 118 U/L (45-117); Aspartate Amino Transferase 8 U/L (0-37); Bilirubin,Total < 0.39 MG/DL (0.2-1.0); Blood Urea Nitrogen 18 MG/DL (7-18); Calcium 9.1 MG/DL (8.5-10.1); Estimated Glom Filtration Rate 101 ML/MIN; Glucose 254 MG/DL (74-106); Osmolality,Calculated 272.7 MOS/KG (273-304); Total Protein 5.6 G/DL (6.4-8.3)
[2018-12-25 03:55] LABS: Hypochromasia Slight; Lymphocytes 3 % (20-55); Platelet Estimate Adequate; Segmented Neutrophils 93 % (50-85); Total Cells Counted 100
[2018-12-25] MEDS ORDERED: CEFEPIME 1,000 MG in SODIUM CHLORIDE 0.9% 100 ML IV STA (04:05)
[2018-12-25] MEDS ORDERED: MAGNESIUM SULF RIDER 4 GM in PREMIX 1 EACH IV PRN (08:06)
[2018-12-25] MEDS ORDERED: BISACODYL 5 MG TABLET PO PRN (08:16)
[2018-12-25] MEDS ORDERED: ASPIRIN EC 325 MG TABLET PO STA (08:16)
[2018-12-25] MEDS ORDERED: METOPROLOL TARTRATE 5 MG/5 ML VIAL IV PRN (08:16)
[2018-12-25] MEDS ORDERED: guaiFENesin/DM ER 600-30 MG TABLET PO PRN (08:16)
[2018-12-25] MEDS ORDERED: DEXTROSE 10% 25 GM/250 ML BAG IV PRN (08:16)
[2018-12-25] MEDS ORDERED: GLUCAGON 1 MG VIAL IM PRN (08:16)
[2018-12-25] MEDS ORDERED: ALBUTEROL 2.5 MG/3 ML NEB RESP TX PRN ×2 (08:16→13:37)
[2018-12-25 08:59] LABS: Apearance,Urine CLOUDY (Clear); Bilirubin,Urine Negative (Negative); Blood, Urine Large mg/dL (Negative); Glucose,Urine (UA) 50 mg/dL (Negative); Ketones,Urine 5 mg/dL (Negative); Nitrite,Urine Negative (Negative); Protein,Urine 100 MG/DL; RBC,Urine 788 /HPF (0-4); Urine Color Yellow (Yellow); Urine Specific Gravity 1.018 (1.001-1.035); Urine Urobilinogen < 2.0 EU/DL (0.2-1.0); WBC,Urine 275 /HPF (0-6)
[2018-12-25] MEDS: SODIUM CHLORIDE 0.9% 1,000 ML IV SCH ×3 (09:08→20:24)
[2018-12-25] MEDS: METOPROLOL TARTRATE 25 MG TABLET PO SCH ×2 (09:09→21:01)
[2018-12-25] MEDS: PANTOPRAZOLE 40 MG TABLET PO SCH (09:09)
[2018-12-25] MEDS: DOCUSATE SODIUM 100 MG CAPSULE PO SCH ×2 (09:09→21:05)
[2018-12-25] MEDS: TAMSULOSIN 0.4 MG CAPSULE PO SCH (09:09)
[2018-12-25] MEDS: ASPIRIN EC 81 MG TABLET PO SCH (11:44)
[2018-12-25] MEDS: ALLOPURINOL 100 MG TABLET PO SCH (11:44)
[2018-12-25] MEDS: INSULIN REGULAR 100 UNIT/ML SUBCUT SCH ×3 (11:44→21:04)
[2018-12-25] MEDS: GABAPENTIN 600 MG TABLET PO SCH ×2 (11:44→21:03)
[2018-12-25] MEDS: PIPERACILLIN/TAZOBACTAM 3,375 MG in SODIUM CHLORIDE 0.9% 100 ML IV SCH ×2 (12:53→21:08)
[2018-12-25] MEDS ORDERED: MAGNESIUM SULF RIDER 4 GM in PREMIX 1 EACH IV ONE (14:57)
[2018-12-25] MEDS: ZINC OXIDE PASTE 113 GM TUBE TOP SCH ×2 (16:28→21:05)
[2018-12-25] MEDS: LACTULOSE 20 GM/30 ML UDCUP PO SCH ×2 (16:29→21:05)
[2018-12-25] MEDS: DILTIAZEM 60 MG TABLET PO SCH ×2 (16:30→21:02)
[2018-12-25] MEDS ORDERED: DILTIAZEM 60 MG TABLET PO SCH (17:00)
[2018-12-25] MEDS: DORNASE ALFA 2.5 MG/2.5 ML VIAL RESP TX SCH (19:00)
[2018-12-25] MEDS: ALPRAZolam 0.25 MG TABLET PO PRN (19:35)
[2018-12-25] MEDS: ACETAMINOPHEN 325 MG TABLET PO PRN (19:35)
[2018-12-25] MEDS: ONDANSETRON 4 MG/2 ML VIAL IV PRN (19:37)
[2018-12-25] MEDS ORDERED: ALPRAZolam 0.25 MG TABLET PO PRN (20:52)
[2018-12-25] MEDS ORDERED: GABAPENTIN 600 MG TABLET PO SCH (21:00)
[2018-12-25] MEDS: DONEPEZIL 5 MG TABLET PO SCH (21:00)
[2018-12-25] MEDS: APIXABAN 5 MG TABLET PO SCH (21:02)
[2018-12-25] MEDS: glipiZIDE 5 MG TABLET PO SCH (21:03)
[2018-12-25] MEDS: POTASSIUM CHLORIDE 20 MEQ TABLET PO SCH (21:18)
[2018-12-25] MEDS: traZODone 50 MG TABLET PO SCH (21:19)
[2018-12-26] MEDS: ALBUTEROL/IPRATROPIUM 3 ML NEB RESP TX SCH ×7 (00:12→23:36)
[2018-12-26] MEDS: ACETAMINOPHEN 325 MG TABLET PO PRN (02:53)
[2018-12-26] MEDS: ALPRAZolam 0.25 MG TABLET PO PRN (02:59)
[2018-12-26] MEDS: PIPERACILLIN/TAZOBACTAM 3,375 MG in SODIUM CHLORIDE 0.9% 100 ML IV SCH ×3 (04:47→22:22)
[2018-12-26 05:12] LABS: Basophils # 0.1 10*3/uL (0.0-0.2); Basophils % 0.7 % (0.0-0.8); Eosinophils # 0.1 10*3/uL (0.0-0.87); Eosinophils % 0.6 % (0.00-10.9); Hematocrit 35.3 VOL% (42.0-52.0); Hemoglobin 11.4 GM/DL (14.0-18.0); Immature Granulocytes % 6.6 %; Lymphocytes # 0.5 10*3/uL (1.4-4.0); Lymphocytes % 2.4 % (21.2-54.2); Mean Corpuscular HGB Conc 32.3 GM/DL (32-36); Mean Corpuscular Volume 91.2 FL (87-102); Mean Platelet Volume 10.9 FL (9.6-12.0); Monocytes % 3.2 % (1.7-12.7); Neutrophils % 86.5 % (38.7-73.9); Platelet Count 179 T/CUMM (130-400); Red Blood Count 3.87 MC/CUMM (3.8-5.5); Red Cell Distribution Width 16.1 % (9.3-17.3); White Blood Count 21.4 T/CUMM (4-12)
[2018-12-26 05:47] LABS: Lymphocytes 4 % (20-55); Segmented Neutrophils 95 % (50-85); Total Cells Counted 100
[2018-12-26 05:48] LABS: Calcium 7.6 MG/DL (8.5-10.1); Osmolality,Calculated 268.2 MOS/KG (273-304); Risk Ratio 2.56; VLDL CHOLESTEROL 29.8 MG/DL
[2018-12-26 05:49] LABS: Anisocytosis 1+; Hypochromasia 1+; Microcytosis 1+
[2018-12-26 05:50] LABS: Platelet Estimate Adequate
[2018-12-26] MEDS ORDERED: predniSONE 20 MG TABLET PO SCH (09:00)
[2018-12-26] MEDS ORDERED: TAMSULOSIN 0.4 MG CAPSULE PO SCH (09:00)
[2018-12-26] MEDS ORDERED: PANTOPRAZOLE 40 MG TABLET PO SCH (09:00)
[2018-12-26] MEDS ORDERED: ASPIRIN EC 81 MG TABLET PO SCH (09:00)
[2018-12-26] MEDS ORDERED: ALLOPURINOL 100 MG TABLET PO SCH (09:00)
[2018-12-26] MEDS: FUROSEMIDE 20 MG TABLET PO SCH (09:16)
[2018-12-26] MEDS: PANTOPRAZOLE 40 MG TABLET PO SCH (09:16)
[2018-12-26] MEDS: TAMSULOSIN 0.4 MG CAPSULE PO SCH (09:16)
[2018-12-26] MEDS: MULTIVITAMIN (CENTRUM) TABLET PO SCH (09:16)
[2018-12-26] MEDS: metFORMIN 500 MG TABLET PO SCH (09:16)
[2018-12-26] MEDS: METOPROLOL TARTRATE 25 MG TABLET PO SCH ×2 (09:16→22:22)
[2018-12-26] MEDS: GABAPENTIN 600 MG TABLET PO SCH ×2 (09:16→22:19)
[2018-12-26] MEDS: ASPIRIN EC 81 MG TABLET PO SCH (09:16)
[2018-12-26] MEDS: SERTRALINE 50 MG TABLET PO SCH (09:16)
[2018-12-26] MEDS: glipiZIDE 5 MG TABLET PO SCH ×2 (09:16→22:21)
[2018-12-26] MEDS: APIXABAN 5 MG TABLET PO SCH ×2 (09:16→22:21)
[2018-12-26] MEDS: DILTIAZEM 60 MG TABLET PO SCH ×4 (09:17→22:20)
[2018-12-26] MEDS: miSOPROStoL 200 MCG TABLET PO SCH ×2 (09:17→17:04)
[2018-12-26] MEDS: DOCUSATE SODIUM 100 MG CAPSULE PO SCH ×2 (09:17→22:19)
[2018-12-26] MEDS: oxyCODONE IR 5 MG TABLET PO PRN ×2 (09:17→22:18)
[2018-12-26] MEDS: ALLOPURINOL 100 MG TABLET PO SCH (09:17)
[2018-12-26] MEDS: MONTELUKAST 10 MG TABLET PO SCH (09:17)
[2018-12-26] MEDS: POTASSIUM CHLORIDE 20 MEQ TABLET PO SCH ×2 (09:17→22:19)
[2018-12-26] MEDS: INSULIN REGULAR 100 UNIT/ML SUBCUT SCH ×4 (09:18→20:22)
[2018-12-26] MEDS: LACTULOSE 20 GM/30 ML UDCUP PO SCH ×3 (09:18→22:21)
[2018-12-26] MEDS: ZINC OXIDE PASTE 113 GM TUBE TOP SCH ×2 (10:40→22:21)
[2018-12-26] MEDS: methylPREDNISolone SOD SUC 40 MG/1 ML VIAL IV SCH (13:16)
[2018-12-26] MEDS: DORNASE ALFA 2.5 MG/2.5 ML VIAL RESP TX SCH ×2 (15:16→19:42)
[2018-12-26] MEDS: DESITIN 4OZ/NYSTATIN 15 GRAM MIXTURE PASTE TOP SCH ×2 (17:38→22:24)
[2018-12-26] MEDS: guaiFENesin/DM ER 600-30 MG TABLET PO SCH (22:19)
[2018-12-26] MEDS: DONEPEZIL 5 MG TABLET PO SCH (22:19)
[2018-12-26] MEDS: traZODone 50 MG TABLET PO SCH (22:21)
[2018-12-27] MEDS: INSULIN REGULAR 100 UNIT/ML SUBCUT SCH ×5 (00:21→21:04)
[2018-12-27] MEDS: ALBUTEROL/IPRATROPIUM 3 ML NEB RESP TX SCH ×6 (03:24→23:59)
[2018-12-27 04:47] LABS: Basophils # 0.1 10*3/uL (0.0-0.2); Basophils % 0.6 % (0.0-0.8); Hematocrit 34.1 VOL% (42.0-52.0); Hemoglobin 11.3 GM/DL (14.0-18.0); Immature Granulocytes % 6.5 %; Immature Granulocytes Absolute 1.19 #; Lymphocytes # 0.6 10*3/uL (1.4-4.0); Lymphocytes % 3.3 % (21.2-54.2); Mean Corpuscular HGB Conc 33.1 GM/DL (32-36); Mean Corpuscular Volume 88.8 FL (87-102); Mean Platelet Volume 11.2 FL (9.6-12.0); Monocytes % 4.1 % (1.7-12.7); Neutrophils % 85.5 % (38.7-73.9); Platelet Count 194 T/CUMM (130-400); Red Blood Count 3.84 MC/CUMM (3.8-5.5); Red Cell Distribution Width 15.9 % (9.3-17.3); White Blood Count 18.2 T/CUMM (4-12)
[2018-12-27] MEDS: PIPERACILLIN/TAZOBACTAM 3,375 MG in SODIUM CHLORIDE 0.9% 100 ML IV SCH ×3 (05:04→21:04)
[2018-12-27 05:05] LABS: Calcium 8.3 MG/DL (8.5-10.1); Osmolality,Calculated 262.7 MOS/KG (273-304)
[2018-12-27 05:22] LABS: Band Neutrophils 2 % (0-10); Lymphocytes 5 % (20-55); Myelocytes 2 %; Segmented Neutrophils 86 % (50-85); Total Cells Counted 100
[2018-12-27 05:24] LABS: Anisocytosis 1+; Hypochromasia 1+; Platelet Estimate Normal
[2018-12-27] MEDS: ALPRAZolam 0.25 MG TABLET PO PRN (06:52)
[2018-12-27] MEDS: DORNASE ALFA 2.5 MG/2.5 ML VIAL RESP TX SCH ×2 (07:43→20:18)
[2018-12-27] MEDS: ALLOPURINOL 100 MG TABLET PO SCH (08:26)
[2018-12-27] MEDS: methylPREDNISolone SOD SUC 40 MG/1 ML VIAL IV SCH (08:26)
[2018-12-27] MEDS: guaiFENesin/DM ER 600-30 MG TABLET PO SCH ×2 (08:26→21:07)
[2018-12-27] MEDS: MULTIVITAMIN (CENTRUM) TABLET PO SCH (08:26)
[2018-12-27] MEDS: FUROSEMIDE 20 MG TABLET PO SCH (08:27)
[2018-12-27] MEDS: POTASSIUM CHLORIDE 20 MEQ TABLET PO SCH ×2 (08:27→21:03)
[2018-12-27] MEDS: miSOPROStoL 200 MCG TABLET PO SCH ×2 (08:27→18:03)
[2018-12-27] MEDS: APIXABAN 5 MG TABLET PO SCH ×2 (08:27→21:03)
[2018-12-27] MEDS: glipiZIDE 5 MG TABLET PO SCH ×2 (08:27→21:03)
[2018-12-27] MEDS: GABAPENTIN 600 MG TABLET PO SCH ×2 (08:27→21:02)
[2018-12-27] MEDS: METOPROLOL TARTRATE 25 MG TABLET PO SCH ×2 (08:27→21:03)
[2018-12-27] MEDS: MONTELUKAST 10 MG TABLET PO SCH (08:27)
[2018-12-27] MEDS: PANTOPRAZOLE 40 MG TABLET PO SCH (08:27)
[2018-12-27] MEDS: LACTULOSE 20 GM/30 ML UDCUP PO SCH ×3 (08:27→21:07)
[2018-12-27] MEDS: DOCUSATE SODIUM 100 MG CAPSULE PO SCH ×2 (08:27→21:02)
[2018-12-27] MEDS: ASPIRIN EC 81 MG TABLET PO SCH (08:27)
[2018-12-27] MEDS: DILTIAZEM 60 MG TABLET PO SCH ×4 (08:27→21:03)
[2018-12-27] MEDS: TAMSULOSIN 0.4 MG CAPSULE PO SCH (08:27)
[2018-12-27] MEDS: SERTRALINE 50 MG TABLET PO SCH (08:27)
[2018-12-27] MEDS: ERGOCALCIFEROL 50,000 UNIT CAPSULE PO SCH (08:28)
[2018-12-27] MEDS: ZINC OXIDE PASTE 113 GM TUBE TOP SCH ×2 (08:28→21:05)
[2018-12-27] MEDS ORDERED: INSULIN GLARGINE 100 UNIT/ML SUBCUT SCH (09:00)
[2018-12-27] MEDS: DESITIN 4OZ/NYSTATIN 15 GRAM MIXTURE PASTE TOP SCH ×2 (12:28→21:06)
[2018-12-27 14:08] LABS: ABG PCO2 41.8 MM HG (35-48)
[2018-12-27 14:09] LABS: ABG HCO3 29.7 MMOL/L (20-26); ABG TCO2 25.4 MMOL/L (23-27)
[2018-12-27 14:10] LABS: ABG Base Excess 5.8 MMOL/L (-2.5-2.5)
[2018-12-27 14:11] LABS: ABG Oxygen Saturation 99.2 % (95-100)
[2018-12-27 15:28] LABS: Apearance,Urine Slightly Hazy (Clear); Bacteria,Urine Occasional /HPF (Few); Bilirubin,Urine Negative (Negative); Blood, Urine Small mg/dL (Negative); Glucose,Urine (UA) >=500 mg/dL (Negative); Hyaline Casts,Urine 3 /LPF (0-3); Ketones,Urine Negative (Negative); Nitrite,Urine Negative (Negative); Protein,Urine Negative; RBC,Urine 90 /HPF (0-4); Urine Color Yellow (Yellow); Urine Urobilinogen < 2.0 EU/DL (0.2-1.0); WBC,Urine 37 /HPF (0-6)
[2018-12-27] MEDS: DONEPEZIL 5 MG TABLET PO SCH (21:04)
[2018-12-27] MEDS: traZODone 50 MG TABLET PO SCH (21:04)
[2018-12-28] MEDS: oxyCODONE IR 5 MG TABLET PO PRN (02:49)
[2018-12-28] MEDS: ALBUTEROL/IPRATROPIUM 3 ML NEB RESP TX SCH ×6 (03:26→23:45)
[2018-12-28] MEDS: PIPERACILLIN/TAZOBACTAM 3,375 MG in SODIUM CHLORIDE 0.9% 100 ML IV SCH ×3 (04:29→21:05)
[2018-12-28 04:55] LABS: Basophils # 0.1 10*3/uL (0.0-0.2); Basophils % 0.3 % (0.0-0.8); Eosinophils # 0.1 10*3/uL (0.0-0.87); Eosinophils % 0.3 % (0.00-10.9); Hematocrit 32.7 VOL% (42.0-52.0); Hemoglobin 10.6 GM/DL (14.0-18.0); Immature Granulocytes Absolute 0.98 #; Lymphocytes # 0.8 10*3/uL (1.4-4.0); Lymphocytes % 4.3 % (21.2-54.2); Mean Corpuscular HGB Conc 32.4 GM/DL (32-36); Mean Corpuscular Volume 90.3 FL (87-102); Mean Platelet Volume 10.7 FL (9.6-12.0); Monocytes % 6.1 % (1.7-12.7); Platelet Count 219 T/CUMM (130-400); Red Blood Count 3.62 MC/CUMM (3.8-5.5); Red Cell Distribution Width 16.4 % (9.3-17.3); White Blood Count 19.5 T/CUMM (4-12)
[2018-12-28 05:21] LABS: Band Neutrophils 1 % (0-10); Lymphocytes 4 % (20-55); Segmented Neutrophils 92 % (50-85); Total Cells Counted 100
[2018-12-28 05:22] LABS: Calcium 8.1 MG/DL (8.5-10.1)
[2018-12-28 05:23] LABS: Anisocytosis 1+; Ovalocytes Few
[2018-12-28 05:24] LABS: Platelet Estimate Normal
[2018-12-28] MEDS: DORNASE ALFA 2.5 MG/2.5 ML VIAL RESP TX SCH ×3 (07:54→23:50)
[2018-12-28] MEDS: INSULIN REGULAR 100 UNIT/ML SUBCUT SCH ×4 (08:20→21:05)
[2018-12-28] MEDS: ALLOPURINOL 100 MG TABLET PO SCH (09:21)
[2018-12-28] MEDS: miSOPROStoL 200 MCG TABLET PO SCH ×2 (09:21→17:05)
[2018-12-28] MEDS: TAMSULOSIN 0.4 MG CAPSULE PO SCH (09:21)
[2018-12-28] MEDS: PANTOPRAZOLE 40 MG TABLET PO SCH (09:21)
[2018-12-28] MEDS: metFORMIN 500 MG TABLET PO SCH ×2 (09:22→17:05)
[2018-12-28] MEDS: DOCUSATE SODIUM 100 MG CAPSULE PO SCH ×2 (09:22→21:04)
[2018-12-28] MEDS: METOPROLOL TARTRATE 25 MG TABLET PO SCH ×2 (09:23→21:05)
[2018-12-28] MEDS: FLUCONAZOLE 200 MG TABLET PO SCH (09:23)
[2018-12-28] MEDS: ASPIRIN EC 81 MG TABLET PO SCH (09:23)
[2018-12-28] MEDS: MULTIVITAMIN (CENTRUM) TABLET PO SCH (09:23)
[2018-12-28] MEDS: SERTRALINE 50 MG TABLET PO SCH (09:23)
[2018-12-28] MEDS: FUROSEMIDE 20 MG TABLET PO SCH (09:23)
[2018-12-28] MEDS: MONTELUKAST 10 MG TABLET PO SCH (09:23)
[2018-12-28] MEDS: APIXABAN 5 MG TABLET PO SCH ×2 (09:23→21:04)
[2018-12-28] MEDS: GABAPENTIN 600 MG TABLET PO SCH ×3 (09:23→21:04)
[2018-12-28] MEDS: POTASSIUM CHLORIDE 20 MEQ TABLET PO SCH ×2 (09:23→21:04)
[2018-12-28] MEDS: LACTULOSE 20 GM/30 ML UDCUP PO SCH ×3 (09:24→21:05)
[2018-12-28] MEDS: ZINC OXIDE PASTE 113 GM TUBE TOP SCH ×2 (09:24→21:06)
[2018-12-28] MEDS: DILTIAZEM 60 MG TABLET PO SCH ×4 (09:24→21:05)
[2018-12-28] MEDS: glipiZIDE 5 MG TABLET PO SCH ×2 (09:25→21:05)
[2018-12-28] MEDS: INSULIN GLARGINE 100 UNIT/ML SUBCUT SCH (09:25)
[2018-12-28] MEDS: DESITIN 4OZ/NYSTATIN 15 GRAM MIXTURE PASTE TOP SCH ×2 (09:26→21:06)
[2018-12-28] MEDS: methylPREDNISolone SOD SUC 40 MG/1 ML VIAL IV SCH (09:26)
[2018-12-28] MEDS: guaiFENesin/DM ER 600-30 MG TABLET PO SCH ×2 (09:26→21:04)
[2018-12-28] MEDS: ALPRAZolam 0.25 MG TABLET PO PRN (15:27)
[2018-12-28] MEDS: traZODone 50 MG TABLET PO SCH (21:04)
[2018-12-28] MEDS: DONEPEZIL 5 MG TABLET PO SCH (21:05)
[2018-12-29] MEDS: MAGNESIUM SULF RIDER 2 GM in PREMIX 1 EACH IV PRN (01:10)
[2018-12-29] MEDS: ALBUTEROL/IPRATROPIUM 3 ML NEB RESP TX SCH ×6 (03:20→22:30)
[2018-12-29] MEDS: PIPERACILLIN/TAZOBACTAM 3,375 MG in SODIUM CHLORIDE 0.9% 100 ML IV SCH ×3 (04:17→21:42)
[2018-12-29 05:28] LABS: Basophils # 0.1 10*3/uL (0.0-0.2); Basophils % 0.3 % (0.0-0.8); Eosinophils # 0.1 10*3/uL (0.0-0.87); Eosinophils % 0.8 % (0.00-10.9); Hematocrit 36.1 VOL% (42.0-52.0); Hemoglobin 11.5 GM/DL (14.0-18.0); Immature Granulocytes % 9.4 %; Immature Granulocytes Absolute 1.53 #; Lymphocytes # 1.2 10*3/uL (1.4-4.0); Lymphocytes % 7.2 % (21.2-54.2); Mean Corpuscular HGB Conc 31.9 GM/DL (32-36); Mean Corpuscular Volume 92.1 FL (87-102); Mean Platelet Volume 10.1 FL (9.6-12.0); Monocytes % 8.1 % (1.7-12.7); Neutrophils % 74.2 % (38.7-73.9); Platelet Count 256 T/CUMM (130-400); Red Blood Count 3.92 MC/CUMM (3.8-5.5); Red Cell Distribution Width 16.8 % (9.3-17.3); White Blood Count 16.2 T/CUMM (4-12)
[2018-12-29 05:40] LABS: Calcium 8.8 MG/DL (8.5-10.1); Osmolality,Calculated 279.1 MOS/KG (273-304)
[2018-12-29 05:55] LABS: Eosinophils 2 % (0-10); Hypochromasia 1+; Lymphocytes 7 % (20-55); Platelet Estimate Adequate; Segmented Neutrophils 86 % (50-85); Total Cells Counted 100
[2018-12-29] MEDS: DORNASE ALFA 2.5 MG/2.5 ML VIAL RESP TX SCH ×2 (07:57→19:08)
[2018-12-29] MEDS: miSOPROStoL 200 MCG TABLET PO SCH ×2 (08:33→16:30)
[2018-12-29] MEDS: MONTELUKAST 10 MG TABLET PO SCH (08:33)
[2018-12-29] MEDS: POTASSIUM CHLORIDE 20 MEQ TABLET PO SCH ×2 (08:34→21:41)
[2018-12-29] MEDS: GABAPENTIN 600 MG TABLET PO SCH ×3 (08:34→21:41)
[2018-12-29] MEDS: APIXABAN 5 MG TABLET PO SCH ×2 (08:34→21:41)
[2018-12-29] MEDS: FLUCONAZOLE 200 MG TABLET PO SCH (08:34)
[2018-12-29] MEDS: DILTIAZEM 60 MG TABLET PO SCH ×4 (08:34→21:42)
[2018-12-29] MEDS: guaiFENesin/DM ER 600-30 MG TABLET PO SCH (08:34)
[2018-12-29] MEDS: glipiZIDE 5 MG TABLET PO SCH ×2 (08:34→21:41)
[2018-12-29] MEDS: DOCUSATE SODIUM 100 MG CAPSULE PO SCH ×2 (08:35→21:41)
[2018-12-29] MEDS: LACTULOSE 20 GM/30 ML UDCUP PO SCH ×3 (08:35→21:43)
[2018-12-29] MEDS: ASPIRIN EC 81 MG TABLET PO SCH (08:35)
[2018-12-29] MEDS: TAMSULOSIN 0.4 MG CAPSULE PO SCH (08:35)
[2018-12-29] MEDS: SERTRALINE 50 MG TABLET PO SCH (08:35)
[2018-12-29] MEDS: MULTIVITAMIN (CENTRUM) TABLET PO SCH (08:35)
[2018-12-29] MEDS: metFORMIN 500 MG TABLET PO SCH ×2 (08:35→16:31)
[2018-12-29] MEDS: ALLOPURINOL 100 MG TABLET PO SCH (08:35)
[2018-12-29] MEDS: INSULIN REGULAR 100 UNIT/ML SUBCUT SCH ×4 (08:35→21:44)
[2018-12-29] MEDS: PANTOPRAZOLE 40 MG TABLET PO SCH (08:35)
[2018-12-29] MEDS: FUROSEMIDE 20 MG TABLET PO SCH (08:35)
[2018-12-29] MEDS: METOPROLOL TARTRATE 25 MG TABLET PO SCH ×2 (08:35→21:41)
[2018-12-29] MEDS: DESITIN 4OZ/NYSTATIN 15 GRAM MIXTURE PASTE TOP SCH ×2 (08:36→21:42)
[2018-12-29] MEDS: INSULIN GLARGINE 100 UNIT/ML SUBCUT SCH (08:36)
[2018-12-29] MEDS: methylPREDNISolone SOD SUC 40 MG/1 ML VIAL IV SCH (08:36)
[2018-12-29] MEDS: ZINC OXIDE PASTE 113 GM TUBE TOP SCH ×2 (08:36→21:43)
[2018-12-29] MEDS: THEOPHYLLINE ER (24 HR) 200 MG CAPSULE PO SCH (13:24)
[2018-12-29] MEDS: DONEPEZIL 5 MG TABLET PO SCH (21:40)
[2018-12-29] MEDS: traZODone 50 MG TABLET PO SCH (21:41)
[2018-12-30] MEDS: ALBUTEROL/IPRATROPIUM 3 ML NEB RESP TX SCH ×5 (02:42→19:11)
[2018-12-30] MEDS: PIPERACILLIN/TAZOBACTAM 3,375 MG in SODIUM CHLORIDE 0.9% 100 ML IV SCH ×2 (04:31→18:12)
[2018-12-30 05:33] LABS: Basophils # 0.1 10*3/uL (0.0-0.2); Basophils % 0.4 % (0.0-0.8); Eosinophils # 0.1 10*3/uL (0.0-0.87); Eosinophils % 0.4 % (0.00-10.9); Hematocrit 37.7 VOL% (42.0-52.0); Hemoglobin 11.7 GM/DL (14.0-18.0); Immature Granulocytes % 11.1 %; Lymphocytes # 1.2 10*3/uL (1.4-4.0); Lymphocytes % 7.3 % (21.2-54.2); Mean Corpuscular Volume 93.5 FL (87-102); Mean Platelet Volume 9.6 FL (9.6-12.0); Monocytes % 8.3 % (1.7-12.7); Neutrophils % 72.5 % (38.7-73.9); Platelet Count 327 T/CUMM (130-400); Red Blood Count 4.03 MC/CUMM (3.8-5.5); Red Cell Distribution Width 16.9 % (9.3-17.3); White Blood Count 17.1 T/CUMM (4-12)
[2018-12-30 05:48] LABS: Calcium 8.7 MG/DL (8.5-10.1); Osmolality,Calculated 276.4 MOS/KG (273-304)
[2018-12-30 05:53] LABS: Band Neutrophils 1 % (0-10); Lymphocytes 4 % (20-55); Platelet Estimate Adequate; Segmented Neutrophils 91 % (50-85); Total Cells Counted 100
[2018-12-30 05:54] LABS: Hypochromasia 1+
[2018-12-30] MEDS: DORNASE ALFA 2.5 MG/2.5 ML VIAL RESP TX SCH ×2 (07:25→19:11)
[2018-12-30] MEDS: MONTELUKAST 10 MG TABLET PO SCH (10:18)
[2018-12-30] MEDS: DILTIAZEM 60 MG TABLET PO SCH ×4 (10:18→20:11)
[2018-12-30] MEDS: THEOPHYLLINE ER (24 HR) 200 MG CAPSULE PO SCH (10:18)
[2018-12-30] MEDS: MULTIVITAMIN (CENTRUM) TABLET PO SCH (10:19)
[2018-12-30] MEDS: miSOPROStoL 200 MCG TABLET PO SCH ×2 (10:19→18:41)
[2018-12-30] MEDS: DOCUSATE SODIUM 100 MG CAPSULE PO SCH ×2 (10:19→20:12)
[2018-12-30] MEDS: APIXABAN 5 MG TABLET PO SCH ×2 (10:19→20:12)
[2018-12-30] MEDS: metFORMIN 500 MG TABLET PO SCH ×2 (10:19→18:41)
[2018-12-30] MEDS: TAMSULOSIN 0.4 MG CAPSULE PO SCH (10:19)
[2018-12-30] MEDS: ASPIRIN EC 81 MG TABLET PO SCH (10:19)
[2018-12-30] MEDS: GABAPENTIN 600 MG TABLET PO SCH ×3 (10:19→20:12)
[2018-12-30] MEDS: INSULIN REGULAR 100 UNIT/ML SUBCUT SCH ×4 (10:20→20:13)
[2018-12-30] MEDS: METOPROLOL TARTRATE 25 MG TABLET PO SCH ×2 (10:20→20:12)
[2018-12-30] MEDS: POTASSIUM CHLORIDE 20 MEQ TABLET PO SCH ×2 (10:20→20:12)
[2018-12-30] MEDS: PANTOPRAZOLE 40 MG TABLET PO SCH (10:20)
[2018-12-30] MEDS: glipiZIDE 5 MG TABLET PO SCH ×2 (10:20→20:13)
[2018-12-30] MEDS: ALLOPURINOL 100 MG TABLET PO SCH (10:20)
[2018-12-30] MEDS: SERTRALINE 50 MG TABLET PO SCH (10:20)
[2018-12-30] MEDS: FLUCONAZOLE 200 MG TABLET PO SCH (10:20)
[2018-12-30] MEDS: LACTULOSE 20 GM/30 ML UDCUP PO SCH ×3 (10:20→20:12)
[2018-12-30] MEDS: FUROSEMIDE 20 MG TABLET PO SCH (10:20)
[2018-12-30] MEDS: ZINC OXIDE PASTE 113 GM TUBE TOP SCH ×2 (10:21→20:15)
[2018-12-30] MEDS: DESITIN 4OZ/NYSTATIN 15 GRAM MIXTURE PASTE TOP SCH ×2 (10:21→20:14)
[2018-12-30] MEDS: methylPREDNISolone SOD SUC 40 MG/1 ML VIAL IV SCH (10:21)
[2018-12-30] MEDS: INSULIN GLARGINE 100 UNIT/ML SUBCUT SCH (14:26)
[2018-12-30] MEDS: traZODone 50 MG TABLET PO SCH (20:12)
[2018-12-30] MEDS: DONEPEZIL 5 MG TABLET PO SCH (20:13)
[2018-12-31] MEDS: ALBUTEROL/IPRATROPIUM 3 ML NEB RESP TX SCH ×6 (00:03→19:00)
[2018-12-31 04:47] LABS: Basophils # 0.1 10*3/uL (0.0-0.2); Basophils % 0.3 % (0.0-0.8); Eosinophils % 0.1 % (0.00-10.9); Hematocrit 37.6 VOL% (42.0-52.0); Hemoglobin 12.2 GM/DL (14.0-18.0); Immature Granulocytes % 12.5 %; Immature Granulocytes Absolute 2.58 #; Lymphocytes # 0.9 10*3/uL (1.4-4.0); Lymphocytes % 4.5 % (21.2-54.2); Mean Corpuscular HGB Conc 32.4 GM/DL (32-36); Mean Platelet Volume 9.2 FL (9.6-12.0); Monocytes % 6.5 % (1.7-12.7); Neutrophils % 76.1 % (38.7-73.9); Platelet Count 367 T/CUMM (130-400); Red Blood Count 4.13 MC/CUMM (3.8-5.5); White Blood Count 20.7 T/CUMM (4-12)
[2018-12-31 04:55] LABS: PT Patient Result 10.7 SECS (9.6-12.2); Partial Thromboplastin Time 25.7 SECS (20.8-36.0)
[2018-12-31 05:08] LABS: Calcium 9.3 MG/DL (8.5-10.1); Osmolality,Calculated 277.4 MOS/KG (273-304)
[2018-12-31 05:08] LABS: Band Neutrophils 5 % (0-10); Lymphocytes 2 % (20-55); Metamyelocytes 5 %; Myelocytes 2 %; Segmented Neutrophils 84 % (50-85); Total Cells Counted 100
[2018-12-31 05:09] LABS: Anisocytosis Slight; Microcytosis Slight; Platelet Estimate Normal; Polychromasia Slight
[2018-12-31 05:11] LABS: Target Cells Slight
[2018-12-31] MEDS ORDERED: DEXTROSE 10% 250 ML IV ONE (05:15)
[2018-12-31] MEDS: DORNASE ALFA 2.5 MG/2.5 ML VIAL RESP TX SCH ×2 (07:20→19:00)
[2018-12-31] MEDS ORDERED: BENZONATATE 100 MG CAPSULE PO ONE (08:00)
[2018-12-31] MEDS ORDERED: diphenhydrAMINE 50 MG/1 ML VIAL IM ONE (08:00)
[2018-12-31] MEDS ORDERED: LIDOCAINE 1% 20 ML VIAL MISC INJ ONE (08:30)
[2018-12-31] MEDS ORDERED: LIDOCAINE 2% 20 ML VIAL RESP TX ONE (08:30)
[2018-12-31] MEDS ORDERED: LIDOCAINE 2% VISCOUS 100 ML BOTTLE SWISH/SPIT ONE (08:30)
[2018-12-31] MEDS ORDERED: MIDAZOLAM 2 MG/2 ML VIAL ONE (08:49)
[2018-12-31] MEDS: INSULIN REGULAR 100 UNIT/ML SUBCUT SCH ×4 (10:34→20:55)
[2018-12-31] MEDS: MEROPENEM 500 MG in SODIUM CHLORIDE 0.9% 100 ML IV SCH ×3 (11:23→23:54)
[2018-12-31] MEDS: APIXABAN 5 MG TABLET PO SCH ×2 (11:58→20:53)
[2018-12-31] MEDS: THEOPHYLLINE ER (24 HR) 200 MG CAPSULE PO SCH (11:58)
[2018-12-31] MEDS: LACTULOSE 20 GM/30 ML UDCUP PO SCH ×3 (11:58→20:56)
[2018-12-31] MEDS: ASPIRIN EC 81 MG TABLET PO SCH (11:59)
[2018-12-31] MEDS: MONTELUKAST 10 MG TABLET PO SCH (11:59)
[2018-12-31] MEDS: DOCUSATE SODIUM 100 MG CAPSULE PO SCH ×2 (11:59→20:54)
[2018-12-31] MEDS: MULTIVITAMIN (CENTRUM) TABLET PO SCH (11:59)
[2018-12-31] MEDS: SERTRALINE 50 MG TABLET PO SCH (11:59)
[2018-12-31] MEDS: METOPROLOL TARTRATE 25 MG TABLET PO SCH ×2 (12:00→20:54)
[2018-12-31] MEDS: DILTIAZEM 60 MG TABLET PO SCH ×4 (12:00→20:54)
[2018-12-31] MEDS: ALLOPURINOL 100 MG TABLET PO SCH (12:00)
[2018-12-31] MEDS: FUROSEMIDE 20 MG TABLET PO SCH (12:00)
[2018-12-31] MEDS: PANTOPRAZOLE 40 MG TABLET PO SCH (12:00)
[2018-12-31] MEDS: predniSONE 10 MG TABLET PO SCH (12:00)
[2018-12-31] MEDS: GABAPENTIN 600 MG TABLET PO SCH ×3 (12:00→20:54)
[2018-12-31] MEDS: TAMSULOSIN 0.4 MG CAPSULE PO SCH ×2 (12:00→20:54)
[2018-12-31] MEDS: POTASSIUM CHLORIDE 20 MEQ TABLET PO SCH ×2 (12:00→20:53)
[2018-12-31] MEDS: metFORMIN 500 MG TABLET PO SCH ×2 (12:01→17:25)
[2018-12-31] MEDS: glipiZIDE 5 MG TABLET PO SCH ×3 (12:01→20:54)
[2018-12-31] MEDS: ZINC OXIDE PASTE 113 GM TUBE TOP SCH ×2 (12:01→21:10)
[2018-12-31] MEDS: miSOPROStoL 200 MCG TABLET PO SCH ×2 (12:02→17:25)
[2018-12-31] MEDS: INSULIN GLARGINE 100 UNIT/ML SUBCUT SCH (12:03)
[2018-12-31] MEDS: NYSTATIN 500,000 UNIT/5 ML UDCUP SWISH/SWAL SCH ×3 (12:04→20:56)
[2018-12-31] MEDS: DESITIN 4OZ/NYSTATIN 15 GRAM MIXTURE PASTE TOP SCH ×2 (13:45→21:11)
[2018-12-31] MEDS: ACETAMINOPHEN 325 MG TABLET PO PRN (14:48)
[2018-12-31] MEDS: DONEPEZIL 5 MG TABLET PO SCH (20:53)
[2018-12-31] MEDS: traZODone 50 MG TABLET PO SCH (20:54)
[2019-01-01] MEDS: ALBUTEROL/IPRATROPIUM 3 ML NEB RESP TX SCH ×7 (03:10→23:00)
[2019-01-01 05:15] LABS: Basophils # 0.1 10*3/uL (0.0-0.2); Basophils % 0.6 % (0.0-0.8); Eosinophils # 0.1 10*3/uL (0.0-0.87); Eosinophils % 0.5 % (0.00-10.9); Hematocrit 35.4 VOL% (42.0-52.0); Hemoglobin 11.5 GM/DL (14.0-18.0); Immature Granulocytes % 9.1 %; Immature Granulocytes Absolute 1.35 #; Lymphocytes # 0.8 10*3/uL (1.4-4.0); Lymphocytes % 5.7 % (21.2-54.2); Mean Corpuscular HGB Conc 32.5 GM/DL (32-36); Mean Corpuscular Volume 91.7 FL (87-102); Mean Platelet Volume 9.1 FL (9.6-12.0); Monocytes % 4.6 % (1.7-12.7); Neutrophils % 79.5 % (38.7-73.9); Platelet Count 316 T/CUMM (130-400); Red Blood Count 3.86 MC/CUMM (3.8-5.5); Red Cell Distribution Width 17.2 % (9.3-17.3); White Blood Count 14.8 T/CUMM (4-12)
[2019-01-01] MEDS: MEROPENEM 500 MG in SODIUM CHLORIDE 0.9% 100 ML IV SCH ×4 (05:21→22:45)
[2019-01-01 05:33] LABS: Calcium 8.6 MG/DL (8.5-10.1); Osmolality,Calculated 268.1 MOS/KG (273-304)
[2019-01-01 05:36] LABS: Band Neutrophils 1 % (0-10); Eosinophils 1 % (0-10); Hypochromasia 1+; Lymphocytes 9 % (20-55); Platelet Estimate Adequate; Segmented Neutrophils 87 % (50-85); Total Cells Counted 100
[2019-01-01] MEDS: DORNASE ALFA 2.5 MG/2.5 ML VIAL RESP TX SCH ×2 (07:25→19:20)
[2019-01-01] MEDS: INSULIN REGULAR 100 UNIT/ML SUBCUT SCH ×4 (09:10→21:41)
[2019-01-01] MEDS: INSULIN GLARGINE 100 UNIT/ML SUBCUT SCH (09:11)
[2019-01-01] MEDS: ASPIRIN EC 81 MG TABLET PO SCH (09:11)
[2019-01-01] MEDS: NYSTATIN 500,000 UNIT/5 ML UDCUP SWISH/SWAL SCH ×4 (09:11→21:39)
[2019-01-01] MEDS: DILTIAZEM 60 MG TABLET PO SCH ×4 (09:11→21:40)
[2019-01-01] MEDS: THEOPHYLLINE ER (24 HR) 200 MG CAPSULE PO SCH (09:12)
[2019-01-01] MEDS: metFORMIN 500 MG TABLET PO SCH ×2 (09:12→17:38)
[2019-01-01] MEDS: MULTIVITAMIN (CENTRUM) TABLET PO SCH (09:13)
[2019-01-01] MEDS: miSOPROStoL 200 MCG TABLET PO SCH ×2 (09:13→17:38)
[2019-01-01] MEDS: GABAPENTIN 600 MG TABLET PO SCH ×3 (09:13→21:41)
[2019-01-01] MEDS: FUROSEMIDE 20 MG TABLET PO SCH (09:13)
[2019-01-01] MEDS: MONTELUKAST 10 MG TABLET PO SCH (09:13)
[2019-01-01] MEDS: POTASSIUM CHLORIDE 20 MEQ TABLET PO SCH ×2 (09:13→21:39)
[2019-01-01] MEDS: predniSONE 10 MG TABLET PO SCH (09:14)
[2019-01-01] MEDS: ALLOPURINOL 100 MG TABLET PO SCH (09:14)
[2019-01-01] MEDS: SERTRALINE 50 MG TABLET PO SCH (09:14)
[2019-01-01] MEDS: DOCUSATE SODIUM 100 MG CAPSULE PO SCH ×2 (09:14→21:39)
[2019-01-01] MEDS: APIXABAN 5 MG TABLET PO SCH ×2 (09:14→21:39)
[2019-01-01] MEDS: TAMSULOSIN 0.4 MG CAPSULE PO SCH ×2 (09:14→21:39)
[2019-01-01] MEDS: glipiZIDE 5 MG TABLET PO SCH (09:14)
[2019-01-01] MEDS: METOPROLOL TARTRATE 25 MG TABLET PO SCH ×2 (09:15→21:39)
[2019-01-01] MEDS: PANTOPRAZOLE 40 MG TABLET PO SCH (09:15)
[2019-01-01] MEDS: LACTULOSE 20 GM/30 ML UDCUP PO SCH ×3 (09:15→21:41)
[2019-01-01] MEDS: DESITIN 4OZ/NYSTATIN 15 GRAM MIXTURE PASTE TOP SCH ×2 (09:16→21:40)
[2019-01-01] MEDS: ZINC OXIDE PASTE 113 GM TUBE TOP SCH ×2 (09:17→21:40)
[2019-01-01] MEDS ORDERED: THEOPHYLLINE ER (24 HR) 200 MG CAPSULE PO SCH (10:00)
[2019-01-01] MEDS: DONEPEZIL 5 MG TABLET PO SCH (21:39)
[2019-01-01] MEDS: traZODone 50 MG TABLET PO SCH (21:41)
[2019-01-02] MEDS: ALBUTEROL/IPRATROPIUM 3 ML NEB RESP TX SCH ×5 (02:40→19:00)
[2019-01-02 05:45] LABS: Basophils # 0.1 10*3/uL (0.0-0.2); Basophils % 0.4 % (0.0-0.8); Eosinophils # 0.1 10*3/uL (0.0-0.87); Eosinophils % 0.8 % (0.00-10.9); Hematocrit 33.7 VOL% (42.0-52.0); Hemoglobin 10.9 GM/DL (14.0-18.0); Immature Granulocytes % 13.9 %; Immature Granulocytes Absolute 1.88 #; Lymphocytes # 0.9 10*3/uL (1.4-4.0); Lymphocytes % 6.4 % (21.2-54.2); Mean Corpuscular HGB Conc 32.3 GM/DL (32-36); Mean Corpuscular Volume 90.8 FL (87-102); Monocytes % 5.1 % (1.7-12.7); Neutrophils % 73.4 % (38.7-73.9); Platelet Count 306 T/CUMM (130-400); Red Blood Count 3.71 MC/CUMM (3.8-5.5); Red Cell Distribution Width 17.1 % (9.3-17.3); White Blood Count 13.5 T/CUMM (4-12)
[2019-01-02 06:04] LABS: Calcium 8.4 MG/DL (8.5-10.1); Osmolality,Calculated 273.7 MOS/KG (273-304)
[2019-01-02] MEDS: MEROPENEM 500 MG in SODIUM CHLORIDE 0.9% 100 ML IV SCH ×4 (06:05→23:01)
[2019-01-02 06:20] LABS: Hypochromasia 1+; Lymphocytes 10 % (20-55); Microcytosis 1+; Platelet Estimate Normal; Segmented Neutrophils 87 % (50-85); Total Cells Counted 100
[2019-01-02] MEDS: DORNASE ALFA 2.5 MG/2.5 ML VIAL RESP TX SCH ×2 (07:50→19:05)
[2019-01-02] MEDS: INSULIN GLARGINE 100 UNIT/ML SUBCUT SCH (12:01)
[2019-01-02] MEDS: NYSTATIN 500,000 UNIT/5 ML UDCUP SWISH/SWAL SCH ×3 (12:01→21:32)
[2019-01-02] MEDS: LACTULOSE 20 GM/30 ML UDCUP PO SCH ×3 (12:01→21:32)
[2019-01-02] MEDS: metFORMIN 500 MG TABLET PO SCH ×2 (12:02→18:26)
[2019-01-02] MEDS: POTASSIUM CHLORIDE 20 MEQ TABLET PO SCH ×2 (12:02→21:31)
[2019-01-02] MEDS: SERTRALINE 50 MG TABLET PO SCH (12:03)
[2019-01-02] MEDS: DOCUSATE SODIUM 100 MG CAPSULE PO SCH ×2 (12:03→21:31)
[2019-01-02] MEDS: THEOPHYLLINE ER (24 HR) 400 MG CAPSULE PO SCH (12:03)
[2019-01-02] MEDS: ALLOPURINOL 100 MG TABLET PO SCH (12:03)
[2019-01-02] MEDS: predniSONE 10 MG TABLET PO SCH (12:03)
[2019-01-02] MEDS: GABAPENTIN 600 MG TABLET PO SCH ×3 (12:03→21:31)
[2019-01-02] MEDS: PANTOPRAZOLE 40 MG TABLET PO SCH (12:04)
[2019-01-02] MEDS: ASPIRIN EC 81 MG TABLET PO SCH (12:04)
[2019-01-02] MEDS: glipiZIDE 5 MG TABLET PO SCH (12:04)
[2019-01-02] MEDS: DILTIAZEM 60 MG TABLET PO SCH ×4 (12:04→21:29)
[2019-01-02] MEDS: APIXABAN 5 MG TABLET PO SCH ×2 (12:04→21:31)
[2019-01-02] MEDS: miSOPROStoL 200 MCG TABLET PO SCH ×2 (12:06→18:26)
[2019-01-02] MEDS: TAMSULOSIN 0.4 MG CAPSULE PO SCH ×2 (12:06→21:32)
[2019-01-02] MEDS: FUROSEMIDE 20 MG TABLET PO SCH (12:06)
[2019-01-02] MEDS: MULTIVITAMIN (CENTRUM) TABLET PO SCH (12:06)
[2019-01-02] MEDS: DESITIN 4OZ/NYSTATIN 15 GRAM MIXTURE PASTE TOP SCH ×2 (12:07→21:38)
[2019-01-02] MEDS: INSULIN REGULAR 100 UNIT/ML SUBCUT SCH ×4 (12:07→21:32)
[2019-01-02] MEDS: MONTELUKAST 10 MG TABLET PO SCH (12:38)
[2019-01-02] MEDS: METOPROLOL TARTRATE 25 MG TABLET PO SCH ×2 (12:43→21:31)
[2019-01-02] MEDS: ZINC OXIDE PASTE 113 GM TUBE TOP SCH ×2 (12:45→21:32)
[2019-01-02] MEDS: DONEPEZIL 5 MG TABLET PO SCH (21:31)
[2019-01-02] MEDS: traZODone 50 MG TABLET PO SCH (21:32)
[2019-01-03] MEDS: ALBUTEROL/IPRATROPIUM 3 ML NEB RESP TX SCH ×6 (03:30→20:47)
[2019-01-03 05:15] LABS: Basophils % 0.3 % (0.0-0.8); Eosinophils # 0.1 10*3/uL (0.0-0.87); Eosinophils % 0.7 % (0.00-10.9); Hematocrit 36.3 VOL% (42.0-52.0); Hemoglobin 11.5 GM/DL (14.0-18.0); Immature Granulocytes % 13.6 %; Lymphocytes % 8.7 % (21.2-54.2); Mean Corpuscular HGB Conc 31.7 GM/DL (32-36); Mean Corpuscular Volume 91.9 FL (87-102); Mean Platelet Volume 9.2 FL (9.6-12.0); Monocytes % 6.9 % (1.7-12.7); Neutrophils % 69.8 % (38.7-73.9); Platelet Count 345 T/CUMM (130-400); Red Blood Count 3.95 MC/CUMM (3.8-5.5); Red Cell Distribution Width 16.6 % (9.3-17.3); White Blood Count 11.8 T/CUMM (4-12)
[2019-01-03] MEDS: MEROPENEM 500 MG in SODIUM CHLORIDE 0.9% 100 ML IV SCH ×2 (05:41→12:23)
[2019-01-03 05:48] LABS: Band Neutrophils 2 % (0-10); Lymphocytes 11 % (20-55); Myelocytes 1 %; Segmented Neutrophils 82 % (50-85); Total Cells Counted 100
[2019-01-03 05:49] LABS: Hypochromasia 1+; Microcytosis 1+; Platelet Estimate Normal
[2019-01-03 05:51] LABS: Calcium 8.7 MG/DL (8.5-10.1); Osmolality,Calculated 274.5 MOS/KG (273-304)
[2019-01-03] MEDS: DORNASE ALFA 2.5 MG/2.5 ML VIAL RESP TX SCH ×2 (08:19→20:47)
[2019-01-03] MEDS: APIXABAN 5 MG TABLET PO SCH ×2 (09:15→20:24)
[2019-01-03] MEDS: NYSTATIN 500,000 UNIT/5 ML UDCUP SWISH/SWAL SCH ×4 (09:18→20:24)
[2019-01-03] MEDS: DILTIAZEM 60 MG TABLET PO SCH ×4 (09:19→20:23)
[2019-01-03] MEDS: MULTIVITAMIN (CENTRUM) TABLET PO SCH (09:19)
[2019-01-03] MEDS: GABAPENTIN 600 MG TABLET PO SCH ×3 (09:22→20:24)
[2019-01-03] MEDS: DOCUSATE SODIUM 100 MG CAPSULE PO SCH ×2 (09:23→20:23)
[2019-01-03] MEDS: SERTRALINE 50 MG TABLET PO SCH (09:23)
[2019-01-03] MEDS: POTASSIUM CHLORIDE 20 MEQ TABLET PO SCH ×2 (09:23→20:24)
[2019-01-03] MEDS: TAMSULOSIN 0.4 MG CAPSULE PO SCH ×2 (09:23→20:23)
[2019-01-03] MEDS: FUROSEMIDE 20 MG TABLET PO SCH (09:23)
[2019-01-03] MEDS: miSOPROStoL 200 MCG TABLET PO SCH ×2 (09:23→17:25)
[2019-01-03] MEDS: MONTELUKAST 10 MG TABLET PO SCH (09:23)
[2019-01-03] MEDS: ERGOCALCIFEROL 50,000 UNIT CAPSULE PO SCH (09:23)
[2019-01-03] MEDS: PANTOPRAZOLE 40 MG TABLET PO SCH (09:24)
[2019-01-03] MEDS: metFORMIN 500 MG TABLET PO SCH ×2 (09:24→17:24)
[2019-01-03] MEDS: THEOPHYLLINE ER (24 HR) 400 MG CAPSULE PO SCH (09:24)
[2019-01-03] MEDS: ALLOPURINOL 100 MG TABLET PO SCH (09:25)
[2019-01-03] MEDS: ASPIRIN EC 81 MG TABLET PO SCH (09:25)
[2019-01-03] MEDS: LACTULOSE 20 GM/30 ML UDCUP PO SCH ×3 (09:26→20:25)
[2019-01-03] MEDS: INSULIN REGULAR 100 UNIT/ML SUBCUT SCH ×4 (09:26→21:48)
[2019-01-03] MEDS: DESITIN 4OZ/NYSTATIN 15 GRAM MIXTURE PASTE TOP SCH ×2 (09:26→20:33)
[2019-01-03] MEDS: INSULIN GLARGINE 100 UNIT/ML SUBCUT SCH (09:36)
[2019-01-03] MEDS: glipiZIDE 5 MG TABLET PO SCH (09:36)
[2019-01-03] MEDS: METOPROLOL TARTRATE 25 MG TABLET PO SCH ×2 (11:40→20:24)
[2019-01-03] MEDS: ZINC OXIDE PASTE 113 GM TUBE TOP SCH ×2 (12:14→20:34)
[2019-01-03] MEDS: PIPERACILLIN/TAZOBACTAM 3,375 MG in SODIUM CHLORIDE 0.9% 100 ML IV SCH ×2 (12:47→20:21)
[2019-01-03] MEDS: TOBRAMYCIN 80 MG/2 ML VIAL RESP TX SCH ×2 (13:25→20:47)
[2019-01-03] MEDS: TOBRAMYCIN INJ 320 MG in SODIUM CHLORIDE 0.9% 100 ML IV SCH (17:23)
[2019-01-03] MEDS: ACETAMINOPHEN 325 MG TABLET PO PRN (19:03)
[2019-01-03] MEDS: ONDANSETRON 4 MG/2 ML VIAL IV PRN (19:08)
[2019-01-03] MEDS: traZODone 50 MG TABLET PO SCH (20:24)
[2019-01-03] MEDS: DONEPEZIL 5 MG TABLET PO SCH (20:24)
[2019-01-04] MEDS: ALBUTEROL/IPRATROPIUM 3 ML NEB RESP TX SCH ×4 (00:39→20:09)
[2019-01-04] MEDS: PIPERACILLIN/TAZOBACTAM 3,375 MG in SODIUM CHLORIDE 0.9% 100 ML IV SCH ×3 (04:55→21:38)
[2019-01-04 05:59] LABS: Basophils # 0.1 10*3/uL (0.0-0.2); Basophils % 1.1 % (0.0-0.8); Eosinophils # 0.2 10*3/uL (0.0-0.87); Eosinophils % 1.4 % (0.00-10.9); Hematocrit 33.8 VOL% (42.0-52.0); Hemoglobin 10.8 GM/DL (14.0-18.0); Immature Granulocytes % 11.2 %; Immature Granulocytes Absolute 1.38 #; Lymphocytes # 0.9 10*3/uL (1.4-4.0); Lymphocytes % 7.5 % (21.2-54.2); Mean Corpuscular Volume 91.8 FL (87-102); Monocytes % 6.2 % (1.7-12.7); Neutrophils % 72.6 % (38.7-73.9); Platelet Count 310 T/CUMM (130-400); Red Blood Count 3.68 MC/CUMM (3.8-5.5); Red Cell Distribution Width 16.7 % (9.3-17.3); White Blood Count 12.3 T/CUMM (4-12)
[2019-01-04 06:28] LABS: Band Neutrophils 3 % (0-10); Eosinophils 1 % (0-10); Lymphocytes 11 % (20-55); Metamyelocytes 4 %; Myelocytes 2 %; Platelet Estimate Normal; Segmented Neutrophils 70 % (50-85); Total Cells Counted 100
[2019-01-04 06:31] LABS: Calcium 8.8 MG/DL (8.5-10.1); Osmolality,Calculated 270.1 MOS/KG (273-304)
[2019-01-04] MEDS: TOBRAMYCIN 80 MG/2 ML VIAL RESP TX SCH ×2 (06:58→20:19)
[2019-01-04] MEDS: INSULIN REGULAR 100 UNIT/ML SUBCUT SCH ×4 (09:28→21:45)
[2019-01-04] MEDS: LACTULOSE 20 GM/30 ML UDCUP PO SCH ×3 (09:28→21:44)
[2019-01-04] MEDS: NYSTATIN 500,000 UNIT/5 ML UDCUP SWISH/SWAL SCH ×4 (09:28→21:43)
[2019-01-04] MEDS: metFORMIN 500 MG TABLET PO SCH ×2 (09:33→18:02)
[2019-01-04] MEDS: DILTIAZEM 60 MG TABLET PO SCH ×4 (09:33→21:42)
[2019-01-04] MEDS: POTASSIUM CHLORIDE 20 MEQ TABLET PO SCH ×2 (09:33→21:42)
[2019-01-04] MEDS: FUROSEMIDE 20 MG TABLET PO SCH (09:33)
[2019-01-04] MEDS: MONTELUKAST 10 MG TABLET PO SCH (09:33)
[2019-01-04] MEDS: MULTIVITAMIN (CENTRUM) TABLET PO SCH (09:34)
[2019-01-04] MEDS: SERTRALINE 50 MG TABLET PO SCH (09:34)
[2019-01-04] MEDS: ALLOPURINOL 100 MG TABLET PO SCH (09:34)
[2019-01-04] MEDS: THEOPHYLLINE ER (24 HR) 400 MG CAPSULE PO SCH (09:34)
[2019-01-04] MEDS: ZINC OXIDE PASTE 113 GM TUBE TOP SCH ×2 (09:34→21:44)
[2019-01-04] MEDS: PANTOPRAZOLE 40 MG TABLET PO SCH (09:34)
[2019-01-04] MEDS: DOCUSATE SODIUM 100 MG CAPSULE PO SCH ×2 (09:34→21:43)
[2019-01-04] MEDS: ASPIRIN EC 81 MG TABLET PO SCH (09:34)
[2019-01-04] MEDS: miSOPROStoL 200 MCG TABLET PO SCH ×2 (09:34→18:02)
[2019-01-04] MEDS: TAMSULOSIN 0.4 MG CAPSULE PO SCH ×2 (09:34→21:42)
[2019-01-04] MEDS: APIXABAN 5 MG TABLET PO SCH ×2 (09:34→21:43)
[2019-01-04] MEDS: GABAPENTIN 600 MG TABLET PO SCH ×3 (09:34→21:43)
[2019-01-04] MEDS: DESITIN 4OZ/NYSTATIN 15 GRAM MIXTURE PASTE TOP SCH ×2 (09:39→21:44)
[2019-01-04] MEDS: METOPROLOL TARTRATE 25 MG TABLET PO SCH ×2 (09:42→21:43)
[2019-01-04] MEDS: MAGNESIUM CHLORIDE 64 MG TABLET PO SCH ×3 (09:42→21:43)
[2019-01-04] MEDS: INSULIN GLARGINE 100 UNIT/ML SUBCUT SCH (10:47)
[2019-01-04] MEDS: ONDANSETRON 4 MG/2 ML VIAL IV PRN (12:44)
[2019-01-04] MEDS: DORNASE ALFA 2.5 MG/2.5 ML VIAL RESP TX SCH ×2 (13:49→20:29)
[2019-01-04] MEDS: TOBRAMYCIN INJ 320 MG in SODIUM CHLORIDE 0.9% 100 ML IV SCH (18:05)
[2019-01-04] MEDS: traZODone 50 MG TABLET PO SCH (21:42)
[2019-01-04] MEDS: DONEPEZIL 5 MG TABLET PO SCH (21:42)
[2019-01-05] MEDS: ALBUTEROL/IPRATROPIUM 3 ML NEB RESP TX SCH ×4 (00:32→20:07)
[2019-01-05] MEDS: PIPERACILLIN/TAZOBACTAM 3,375 MG in SODIUM CHLORIDE 0.9% 100 ML IV SCH ×3 (03:49→21:20)
[2019-01-05] MEDS ORDERED: ALBUTEROL/IPRATROPIUM 3 ML NEB RESP TX ONE (05:22)
[2019-01-05 05:48] LABS: Basophils # 0.1 10*3/uL (0.0-0.2); Basophils % 0.6 % (0.0-0.8); Eosinophils # 0.2 10*3/uL (0.0-0.87); Eosinophils % 1.6 % (0.00-10.9); Hematocrit 34.3 VOL% (42.0-52.0); Hemoglobin 10.9 GM/DL (14.0-18.0); Immature Granulocytes Absolute 1.11 #; Lymphocytes # 0.9 10*3/uL (1.4-4.0); Lymphocytes % 8.7 % (21.2-54.2); Mean Corpuscular HGB Conc 31.8 GM/DL (32-36); Mean Corpuscular Volume 91.2 FL (87-102); Mean Platelet Volume 8.8 FL (9.6-12.0); Neutrophils % 70.1 % (38.7-73.9); Platelet Count 283 T/CUMM (130-400); Red Blood Count 3.76 MC/CUMM (3.8-5.5); Red Cell Distribution Width 16.3 % (9.3-17.3); White Blood Count 10.1 T/CUMM (4-12)
[2019-01-05 06:09] LABS: Calcium 8.6 MG/DL (8.5-10.1)
[2019-01-05 06:11] LABS: Band Neutrophils 6 % (0-10); Eosinophils 1 % (0-10); Lymphocytes 11 % (20-55); Myelocytes 1 %; Segmented Neutrophils 71 % (50-85); Total Cells Counted 100
[2019-01-05 06:12] LABS: Hypochromasia 1+; Microcytosis 1+
[2019-01-05] MEDS: MAGNESIUM SULF RIDER 2 GM in PREMIX 1 EACH IV PRN (06:50)
[2019-01-05] MEDS: TOBRAMYCIN 80 MG/2 ML VIAL RESP TX SCH ×2 (07:33→20:10)
[2019-01-05] MEDS: DORNASE ALFA 2.5 MG/2.5 ML VIAL RESP TX SCH ×2 (07:46→20:13)
[2019-01-05] MEDS: miSOPROStoL 200 MCG TABLET PO SCH ×2 (08:22→16:59)
[2019-01-05] MEDS: ALLOPURINOL 100 MG TABLET PO SCH (08:22)
[2019-01-05] MEDS: THEOPHYLLINE ER (24 HR) 400 MG CAPSULE PO SCH (08:23)
[2019-01-05] MEDS: GABAPENTIN 600 MG TABLET PO SCH ×3 (08:23→21:20)
[2019-01-05] MEDS: MONTELUKAST 10 MG TABLET PO SCH (08:24)
[2019-01-05] MEDS: PANTOPRAZOLE 40 MG TABLET PO SCH (08:24)
[2019-01-05] MEDS: FUROSEMIDE 20 MG TABLET PO SCH (08:24)
[2019-01-05] MEDS: METOPROLOL TARTRATE 25 MG TABLET PO SCH (08:24)
[2019-01-05] MEDS: MAGNESIUM CHLORIDE 64 MG TABLET PO SCH ×3 (08:24→21:19)
[2019-01-05] MEDS: DILTIAZEM 60 MG TABLET PO SCH ×4 (08:24→21:19)
[2019-01-05] MEDS: ASPIRIN EC 81 MG TABLET PO SCH (08:25)
[2019-01-05] MEDS: TAMSULOSIN 0.4 MG CAPSULE PO SCH ×2 (08:25→21:19)
[2019-01-05] MEDS: APIXABAN 5 MG TABLET PO SCH ×2 (08:25→21:19)
[2019-01-05] MEDS: metFORMIN 500 MG TABLET PO SCH ×2 (08:25→16:58)
[2019-01-05] MEDS: DOCUSATE SODIUM 100 MG CAPSULE PO SCH ×2 (08:25→21:20)
[2019-01-05] MEDS: POTASSIUM CHLORIDE 20 MEQ TABLET PO SCH ×2 (08:26→21:18)
[2019-01-05] MEDS: MULTIVITAMIN (CENTRUM) TABLET PO SCH (08:27)
[2019-01-05] MEDS: LACTULOSE 20 GM/30 ML UDCUP PO SCH ×3 (08:27→21:20)
[2019-01-05] MEDS: ZINC OXIDE PASTE 113 GM TUBE TOP SCH ×2 (08:27→21:20)
[2019-01-05] MEDS: INSULIN GLARGINE 100 UNIT/ML SUBCUT SCH (08:28)
[2019-01-05] MEDS: DESITIN 4OZ/NYSTATIN 15 GRAM MIXTURE PASTE TOP SCH ×2 (08:28→21:20)
[2019-01-05] MEDS: NYSTATIN 500,000 UNIT/5 ML UDCUP SWISH/SWAL SCH ×4 (08:28→21:20)
[2019-01-05] MEDS: INSULIN REGULAR 100 UNIT/ML SUBCUT SCH ×4 (08:43→21:20)
[2019-01-05] MEDS: SERTRALINE 50 MG TABLET PO SCH (08:49)
[2019-01-05] MEDS ORDERED: MAGNESIUM SULF RIDER 2 GM in PREMIX 1 EACH IV ONE (17:48)
[2019-01-05] MEDS: DONEPEZIL 5 MG TABLET PO SCH (21:18)
[2019-01-05] MEDS: traZODone 50 MG TABLET PO SCH (21:19)
[2019-01-05] MEDS: BISOPROLOL 5 MG TABLET PO SCH (21:19)
[2019-01-06] MEDS: ALBUTEROL/IPRATROPIUM 3 ML NEB RESP TX SCH ×3 (02:02→13:18)
[2019-01-06] MEDS: ACETAMINOPHEN 325 MG TABLET PO PRN ×2 (02:35→12:05)
[2019-01-06] MEDS: PIPERACILLIN/TAZOBACTAM 3,375 MG in SODIUM CHLORIDE 0.9% 100 ML IV SCH ×2 (04:12→12:08)
[2019-01-06 05:08] LABS: Basophils # 0.1 10*3/uL (0.0-0.2); Basophils % 0.7 % (0.0-0.8); Eosinophils # 0.2 10*3/uL (0.0-0.87); Hematocrit 31.4 VOL% (42.0-52.0); Hemoglobin 9.9 GM/DL (14.0-18.0); Immature Granulocytes % 9.5 %; Immature Granulocytes Absolute 0.93 #; Lymphocytes # 0.9 10*3/uL (1.4-4.0); Lymphocytes % 9.3 % (21.2-54.2); Mean Corpuscular HGB Conc 31.5 GM/DL (32-36); Mean Corpuscular Volume 92.1 FL (87-102); Mean Platelet Volume 8.8 FL (9.6-12.0); Monocytes % 8.7 % (1.7-12.7); Neutrophils % 69.8 % (38.7-73.9); Platelet Count 275 T/CUMM (130-400); Red Blood Count 3.41 MC/CUMM (3.8-5.5); Red Cell Distribution Width 16.2 % (9.3-17.3); White Blood Count 9.8 T/CUMM (4-12)
[2019-01-06 05:25] LABS: Calcium 8.7 MG/DL (8.5-10.1); Osmolality,Calculated 278.4 MOS/KG (273-304)
[2019-01-06 05:29] LABS: Eosinophils 1 % (0-10); Hypochromasia 1+; Lymphocytes 10 % (20-55); Microcytosis Slight; Platelet Estimate Adequate; Segmented Neutrophils 84 % (50-85); Total Cells Counted 100
[2019-01-06] MEDS: TOBRAMYCIN 80 MG/2 ML VIAL RESP TX SCH (07:33)
[2019-01-06] MEDS: DORNASE ALFA 2.5 MG/2.5 ML VIAL RESP TX SCH (07:33)
[2019-01-06] MEDS: MULTIVITAMIN (CENTRUM) TABLET PO SCH (09:10)
[2019-01-06] MEDS: MAGNESIUM CHLORIDE 64 MG TABLET PO SCH ×2 (09:10→14:41)
[2019-01-06] MEDS: ALLOPURINOL 100 MG TABLET PO SCH (09:11)
[2019-01-06] MEDS: ASPIRIN EC 81 MG TABLET PO SCH (09:11)
[2019-01-06] MEDS: APIXABAN 5 MG TABLET PO SCH (09:11)
[2019-01-06] MEDS: POTASSIUM CHLORIDE 20 MEQ TABLET PO SCH (09:11)
[2019-01-06] MEDS: PANTOPRAZOLE 40 MG TABLET PO SCH (09:11)
[2019-01-06] MEDS: SERTRALINE 50 MG TABLET PO SCH (09:11)
[2019-01-06] MEDS: TAMSULOSIN 0.4 MG CAPSULE PO SCH (09:11)
[2019-01-06] MEDS: THEOPHYLLINE ER (24 HR) 400 MG CAPSULE PO SCH (09:12)
[2019-01-06] MEDS: metFORMIN 500 MG TABLET PO SCH ×2 (09:13→16:38)
[2019-01-06] MEDS: miSOPROStoL 200 MCG TABLET PO SCH ×2 (09:13→16:38)
[2019-01-06] MEDS: NYSTATIN 500,000 UNIT/5 ML UDCUP SWISH/SWAL SCH ×3 (09:13→16:38)
[2019-01-06] MEDS: FUROSEMIDE 20 MG TABLET PO SCH (09:14)
[2019-01-06] MEDS: LACTULOSE 20 GM/30 ML UDCUP PO SCH ×2 (09:15→15:16)
[2019-01-06] MEDS: INSULIN GLARGINE 100 UNIT/ML SUBCUT SCH (09:15)
[2019-01-06] MEDS: DILTIAZEM 60 MG TABLET PO SCH ×3 (09:17→16:37)
[2019-01-06] MEDS: MONTELUKAST 10 MG TABLET PO SCH (09:17)
[2019-01-06] MEDS: ZINC OXIDE PASTE 113 GM TUBE TOP SCH (09:17)
[2019-01-06] MEDS: DESITIN 4OZ/NYSTATIN 15 GRAM MIXTURE PASTE TOP SCH (09:18)
[2019-01-06] MEDS: BISOPROLOL 5 MG TABLET PO SCH (09:18)
[2019-01-06] MEDS: GABAPENTIN 600 MG TABLET PO SCH ×2 (09:26→14:41)
[2019-01-06] MEDS: DOCUSATE SODIUM 100 MG CAPSULE PO SCH (09:26)
[2019-01-06] MEDS: INSULIN REGULAR 100 UNIT/ML SUBCUT SCH ×3 (09:29→16:02)
[2019-01-06] MEDS: TOBRAMYCIN INJ 320 MG in SODIUM CHLORIDE 0.9% 100 ML IV SCH (09:45)
[2019-01-06] MEDS ORDERED: TUBERCULIN SKIN TEST 0.1 ML SYRINGE INTRADERM ONE (14:38)
[2019-01-06] MEDS: ONDANSETRON 4 MG/2 ML VIAL IV PRN (16:24)
[2019-01-06 16:39] VITALS: BP 107/76
== END 2019-01-06 19:38 | disposition home health service (06) | DRG 309 ==
LOC: EDBD → EDUNIT# → N.ED 02:57 → N.EDINP 08:20 → SUATTDRO 08:20 → N.TELES 10:38
PROVIDERS: ADMIT Hospitalist; ATTEND Internal Medicine

== ENCOUNTER 2019-02-05 19:19 | Inpatient (IN) ==
[2019-02-05] MEDS ORDERED: ONDANSETRON 4 MG/2 ML VIAL IV STA (20:19)
[2019-02-05] MEDS ORDERED: methylPREDNISolone SOD SUC 125 MG/2 ML VIAL IV STA (20:19)
[2019-02-05] MEDS ORDERED: cefTRIAXone 1,000 MG in SODIUM CHLORIDE 0.9% 100 ML IV STA (20:19)
[2019-02-05] MEDS ORDERED: MORPHINE 4 MG/1 ML VIAL IV STA (20:19)
[2019-02-05] MEDS ORDERED: ALBUTEROL NEB SOLN 5 MG/ML 20 ML/BOTTLE RESP TX SCH (20:30)
[2019-02-05 21:45] LABS: ABG Base Excess 3.9 MMOL/L (-2.5-2.5); ABG HCO3 29.6 MMOL/L (20-26); ABG Oxygen Saturation 97.4 % (95-100); ABG PCO2 48.2 MM HG (35-48); ABG PH 7.406 (7.35-7.45); ABG PO2 102.7 MM HG (80-95); ABG TCO2 31.1 MMOL/L (23-27); Allen Test Positive
[2019-02-05 21:55] LABS: Basophils # 0.1 10*3/uL (0.0-0.2); Basophils % 0.4 % (0.0-0.8); Hemoglobin 9.9 GM/DL (14.0-18.0); Immature Granulocytes Absolute 0.97 #; Lymphocytes # 3.4 10*3/uL (1.4-4.0); Lymphocytes % 10.4 % (21.2-54.2); Mean Corpuscular HGB Conc 31.9 GM/DL (32-36); Mean Corpuscular Volume 90.6 FL (87-102); Mean Platelet Volume 9.4 FL (9.6-12.0); Monocytes % 6.8 % (1.7-12.7); Neutrophils % 79.4 % (38.7-73.9); Platelet Count 334 T/CUMM (130-400); Red Blood Count 3.42 MC/CUMM (3.8-5.5); Red Cell Distribution Width 16.4 % (9.3-17.3); White Blood Count 32.8 T/CUMM (4-12)
[2019-02-05 22:10] LABS: PT Patient Result 10.9 SECS (9.6-12.2); Partial Thromboplastin Time 30.7 SECS (20.8-36.0)
[2019-02-05 22:17] LABS: Albumin 2.4 G/DL (3.4-5.0); Bilirubin,Total 0.4 MG/DL (0.2-1.0); Calcium 9.1 MG/DL (8.5-10.1); Total Protein 6.4 G/DL (6.4-8.3)
[2019-02-05 22:29] LABS: Apearance,Urine CLOUDY (Clear); Bacteria,Urine Many /HPF (Few); Bilirubin,Urine Negative (Negative); Blood, Urine Large mg/dL (Negative); Calcium Oxalate Crystals,Urine Few /HPF (Few); Glucose,Urine (UA) Negative (Negative); Ketones,Urine 20 mg/dL (Negative); Mucus,Urine Many /LPF (Occasional); Nitrite,Urine Negative (Negative); Protein,Urine 30 MG/DL; RBC,Urine 7 /HPF (0-4); Urine Color Amber (Yellow); Urine Specific Gravity 1.024 (1.001-1.035); Urine Urobilinogen < 2.0 EU/DL (0.2-1.0); WBC,Urine 3 /HPF (0-6)
[2019-02-06] MEDS ORDERED: DEXTROSE 50% 25 GM/50 ML VIAL IV STA (00:06)
[2019-02-06] MEDS ORDERED: DEXTROSE 50% 25 GM/50 ML SYRINGE IV ONE (00:07)
[2019-02-06] MEDS ORDERED: ONDANSETRON 4 MG/2 ML VIAL IV PRN (00:21)
[2019-02-06] MEDS ORDERED: MORPHINE 4 MG/1 ML VIAL IV PRN (00:21)
[2019-02-06] MEDS ORDERED: DEXTROSE 50% 25 GM/50 ML SYRINGE IV PRN (00:21)
[2019-02-06] MEDS ORDERED: GLUCAGON 1 MG VIAL IM PRN ×2 (00:21→12:07)
[2019-02-06] MEDS ORDERED: AZITHROMYCIN INJ 500 MG in SODIUM CHLORIDE 0.9% 250 ML IV SCH (00:30)
[2019-02-06] MEDS ORDERED: BISACODYL 5 MG TABLET PO PRN (00:30)
[2019-02-06] MEDS ORDERED: ENOXAPARIN 40 MG/0.4 ML SYRINGE SUBCUT SCH (00:30)
[2019-02-06] MEDS: ALBUTEROL/IPRATROPIUM 3 ML NEB RESP TX SCH ×4 (01:13→20:39)
[2019-02-06] MEDS: traZODone 50 MG TABLET PO SCH ×2 (01:30→21:17)
[2019-02-06] MEDS: oxyCODONE IR 5 MG TABLET PO PRN ×2 (01:37→09:51)
[2019-02-06] MEDS: MEROPENEM 1,000 MG in SODIUM CHLORIDE 0.9% 100 ML IV SCH ×3 (01:59→18:06)
[2019-02-06 02:19] LABS: Anisocytosis 1+; Lymphocytes 9 % (20-55); Platelet Estimate Adequate; Segmented Neutrophils 84 % (50-85); Total Cells Counted 100
[2019-02-06 02:20] LABS: Hypochromasia 1+
[2019-02-06] MEDS: DORNASE ALFA 2.5 MG/2.5 ML VIAL RESP TX SCH ×2 (07:20→20:44)
[2019-02-06 07:36] LABS: Basophils # 0.1 10*3/uL (0.0-0.2); Basophils % 0.3 % (0.0-0.8); Hematocrit 35.1 VOL% (42.0-52.0); Hemoglobin 11.3 GM/DL (14.0-18.0); Immature Granulocytes % 3.1 %; Immature Granulocytes Absolute 0.71 #; Lymphocytes # 0.4 10*3/uL (1.4-4.0); Lymphocytes % 1.6 % (21.2-54.2); Mean Corpuscular HGB Conc 32.2 GM/DL (32-36); Mean Platelet Volume 10.3 FL (9.6-12.0); Monocytes % 1.3 % (1.7-12.7); Neutrophils % 93.7 % (38.7-73.9); Platelet Count 317 T/CUMM (130-400); Red Blood Count 3.99 MC/CUMM (3.8-5.5); Red Cell Distribution Width 16.4 % (9.3-17.3); White Blood Count 23.2 T/CUMM (4-12)
[2019-02-06 07:49] LABS: Albumin 2.3 G/DL (3.4-5.0); Calcium 8.4 MG/DL (8.5-10.1); Osmolality,Calculated 281.1 MOS/KG (273-304); Total Protein 6.3 G/DL (6.4-8.3)
[2019-02-06 07:56] LABS: Band Neutrophils 16 % (0-10); Lymphocytes 4 % (20-55); Platelet Estimate Normal; Segmented Neutrophils 78 % (50-85); Total Cells Counted 100
[2019-02-06 07:57] LABS: Anisocytosis 1+; Macrocytosis Slight
[2019-02-06] MEDS ORDERED: APIXABAN 5 MG TABLET PO SCH (09:00)
[2019-02-06] MEDS: GABAPENTIN 600 MG TABLET PO SCH ×3 (09:20→21:18)
[2019-02-06] MEDS: THEOPHYLLINE ER (24 HR) 200 MG CAPSULE PO SCH (09:20)
[2019-02-06] MEDS: methylPREDNISolone SOD SUC 40 MG/1 ML VIAL IV SCH ×3 (09:21→23:49)
[2019-02-06] MEDS: LACTULOSE 20 GM/30 ML UDCUP PO SCH ×3 (09:21→21:17)
[2019-02-06] MEDS: ALLOPURINOL 100 MG TABLET PO SCH (09:21)
[2019-02-06] MEDS: ASPIRIN EC 81 MG TABLET PO SCH (09:21)
[2019-02-06] MEDS: DILTIAZEM 60 MG TABLET PO SCH ×4 (09:21→21:17)
[2019-02-06] MEDS: TAMSULOSIN 0.4 MG CAPSULE PO SCH ×2 (09:21→21:17)
[2019-02-06] MEDS: FUROSEMIDE 20 MG TABLET PO SCH (09:21)
[2019-02-06] MEDS: MONTELUKAST 10 MG TABLET PO SCH (09:21)
[2019-02-06] MEDS: MULTIVITAMIN (CENTRUM) TABLET PO SCH (09:21)
[2019-02-06] MEDS: POTASSIUM CHLORIDE 20 MEQ TABLET PO SCH ×2 (09:22→21:17)
[2019-02-06] MEDS: NYSTATIN 500,000 UNIT/5 ML UDCUP SWISH/SWAL SCH ×4 (09:22→21:18)
[2019-02-06] MEDS: DOCUSATE SODIUM 100 MG CAPSULE PO SCH ×2 (09:22→21:17)
[2019-02-06] MEDS: PANTOPRAZOLE 40 MG TABLET PO SCH (09:22)
[2019-02-06] MEDS: SERTRALINE 50 MG TABLET PO SCH (09:23)
[2019-02-06] MEDS: CLINDAMYCIN INJ 300 MG in PREMIX 1 EACH IV SCH ×3 (11:35→23:40)
[2019-02-06] MEDS: FLUTICASONE/SALMETEROL 500-50 DISKUS 14 DOSE INH SCH ×2 (11:35→21:20)
[2019-02-06] MEDS: ENOXAPARIN 40 MG/0.4 ML SYRINGE SUBCUT SCH (11:35)
[2019-02-06] MEDS ORDERED: DEXTROSE 10% 25 GM/250 ML BAG IV PRN (12:07)
[2019-02-06] MEDS: INSULIN REGULAR 100 UNIT/ML SUBCUT SCH ×2 (16:20→21:18)
[2019-02-06] MEDS ORDERED: cefTRIAXone 1,000 MG in SYRINGE 1 EACH IV SCH (21:00)
[2019-02-06] MEDS: DONEPEZIL 10 MG TABLET PO SCH (21:17)
[2019-02-07] MEDS: ALBUTEROL/IPRATROPIUM 3 ML NEB RESP TX SCH ×4 (00:15→19:55)
[2019-02-07] MEDS: CLINDAMYCIN INJ 300 MG in PREMIX 1 EACH IV SCH ×4 (05:53→23:18)
[2019-02-07] MEDS: MEROPENEM 1,000 MG in SODIUM CHLORIDE 0.9% 100 ML IV SCH ×3 (07:13→17:11)
[2019-02-07] MEDS: DORNASE ALFA 2.5 MG/2.5 ML VIAL RESP TX SCH ×2 (07:19→20:01)
[2019-02-07] MEDS: THEOPHYLLINE ER (24 HR) 200 MG CAPSULE PO SCH (08:55)
[2019-02-07] MEDS: ASPIRIN EC 81 MG TABLET PO SCH (08:55)
[2019-02-07] MEDS: LACTULOSE 20 GM/30 ML UDCUP PO SCH ×3 (08:55→21:50)
[2019-02-07] MEDS: MULTIVITAMIN (CENTRUM) TABLET PO SCH (08:55)
[2019-02-07] MEDS: POTASSIUM CHLORIDE 20 MEQ TABLET PO SCH ×2 (08:55→21:52)
[2019-02-07] MEDS: GABAPENTIN 600 MG TABLET PO SCH ×3 (08:55→21:52)
[2019-02-07] MEDS: ALLOPURINOL 100 MG TABLET PO SCH (08:55)
[2019-02-07] MEDS: MONTELUKAST 10 MG TABLET PO SCH (08:55)
[2019-02-07] MEDS: TAMSULOSIN 0.4 MG CAPSULE PO SCH ×2 (08:56→21:52)
[2019-02-07] MEDS: methylPREDNISolone SOD SUC 40 MG/1 ML VIAL IV SCH ×2 (08:56→16:45)
[2019-02-07] MEDS: DILTIAZEM 60 MG TABLET PO SCH ×4 (08:56→21:50)
[2019-02-07] MEDS: DOCUSATE SODIUM 100 MG CAPSULE PO SCH ×2 (08:56→21:50)
[2019-02-07] MEDS: FUROSEMIDE 20 MG TABLET PO SCH (08:56)
[2019-02-07] MEDS: SERTRALINE 50 MG TABLET PO SCH (08:56)
[2019-02-07] MEDS: INSULIN REGULAR 100 UNIT/ML SUBCUT SCH ×4 (08:57→21:49)
[2019-02-07] MEDS: FLUTICASONE/SALMETEROL 500-50 DISKUS 14 DOSE INH SCH ×2 (08:57→21:52)
[2019-02-07] MEDS ORDERED: ERGOCALCIFEROL 50,000 UNIT CAPSULE PO SCH (09:00)
[2019-02-07] MEDS: PANTOPRAZOLE 40 MG TABLET PO SCH (09:11)
[2019-02-07] MEDS: NYSTATIN 500,000 UNIT/5 ML UDCUP SWISH/SWAL SCH ×4 (09:11→21:50)
[2019-02-07] MEDS: ENOXAPARIN 40 MG/0.4 ML SYRINGE SUBCUT SCH (11:15)
[2019-02-07] MEDS: DONEPEZIL 10 MG TABLET PO SCH (21:52)
[2019-02-07] MEDS: traZODone 50 MG TABLET PO SCH (21:52)
[2019-02-08] MEDS: ALBUTEROL/IPRATROPIUM 3 ML NEB RESP TX SCH ×4 (00:40→20:31)
[2019-02-08] MEDS: methylPREDNISolone SOD SUC 40 MG/1 ML VIAL IV SCH ×3 (01:11→15:11)
[2019-02-08] MEDS: MEROPENEM 1,000 MG in SODIUM CHLORIDE 0.9% 100 ML IV SCH ×3 (01:12→16:00)
[2019-02-08] MEDS: CLINDAMYCIN INJ 300 MG in PREMIX 1 EACH IV SCH ×3 (05:59→16:01)
[2019-02-08 06:21] LABS: Basophils # 0.1 10*3/uL (0.0-0.2); Basophils % 0.2 % (0.0-0.8); Hematocrit 30.4 VOL% (42.0-52.0); Hemoglobin 9.7 GM/DL (14.0-18.0); Immature Granulocytes % 3.7 %; Lymphocytes # 0.3 10*3/uL (1.4-4.0); Lymphocytes % 1.5 % (21.2-54.2); Mean Corpuscular HGB Conc 31.9 GM/DL (32-36); Mean Corpuscular Volume 88.6 FL (87-102); Mean Platelet Volume 9.6 FL (9.6-12.0); Monocytes % 2.4 % (1.7-12.7); Neutrophils % 92.2 % (38.7-73.9); Platelet Count 340 T/CUMM (130-400); Red Blood Count 3.43 MC/CUMM (3.8-5.5); Red Cell Distribution Width 16.2 % (9.3-17.3); White Blood Count 21.8 T/CUMM (4-12)
[2019-02-08 06:42] LABS: Calcium 9.1 MG/DL (8.5-10.1); Osmolality,Calculated 286.1 MOS/KG (273-304)
[2019-02-08 06:43] LABS: Band Neutrophils 10 % (0-10); Lymphocytes 7 % (20-55); Platelet Estimate Normal; Segmented Neutrophils 79 % (50-85); Total Cells Counted 100
[2019-02-08 06:44] LABS: Anisocytosis 2+; Hypochromasia Slight; Macrocytosis Slight
[2019-02-08] MEDS: DORNASE ALFA 2.5 MG/2.5 ML VIAL RESP TX SCH ×2 (07:05→20:31)
[2019-02-08] MEDS: INSULIN REGULAR 100 UNIT/ML SUBCUT SCH ×4 (07:22→21:57)
[2019-02-08] MEDS: ASPIRIN EC 81 MG TABLET PO SCH (09:00)
[2019-02-08] MEDS: LACTULOSE 20 GM/30 ML UDCUP PO SCH ×3 (09:00→20:31)
[2019-02-08] MEDS: THEOPHYLLINE ER (24 HR) 200 MG CAPSULE PO SCH (09:00)
[2019-02-08] MEDS: DILTIAZEM 60 MG TABLET PO SCH ×4 (09:00→21:56)
[2019-02-08] MEDS: MULTIVITAMIN (CENTRUM) TABLET PO SCH (09:01)
[2019-02-08] MEDS: NYSTATIN 500,000 UNIT/5 ML UDCUP SWISH/SWAL SCH ×4 (09:01→21:56)
[2019-02-08] MEDS: GABAPENTIN 600 MG TABLET PO SCH ×3 (09:01→21:56)
[2019-02-08] MEDS: POTASSIUM CHLORIDE 20 MEQ TABLET PO SCH ×2 (09:01→21:56)
[2019-02-08] MEDS: MONTELUKAST 10 MG TABLET PO SCH (09:01)
[2019-02-08] MEDS: SERTRALINE 50 MG TABLET PO SCH (09:01)
[2019-02-08] MEDS: TAMSULOSIN 0.4 MG CAPSULE PO SCH ×2 (09:02→21:56)
[2019-02-08] MEDS: DOCUSATE SODIUM 100 MG CAPSULE PO SCH ×2 (09:02→20:31)
[2019-02-08] MEDS: PANTOPRAZOLE 40 MG TABLET PO SCH (09:02)
[2019-02-08] MEDS: FLUTICASONE/SALMETEROL 500-50 DISKUS 14 DOSE INH SCH ×2 (09:02→21:56)
[2019-02-08] MEDS: FUROSEMIDE 20 MG TABLET PO SCH (09:02)
[2019-02-08] MEDS: ALLOPURINOL 100 MG TABLET PO SCH (09:06)
[2019-02-08] MEDS: ENOXAPARIN 40 MG/0.4 ML SYRINGE SUBCUT SCH (10:45)
[2019-02-08] MEDS: oxyCODONE IR 5 MG TABLET PO PRN (15:10)
[2019-02-08] MEDS: traZODone 50 MG TABLET PO SCH (21:56)
[2019-02-08] MEDS: DONEPEZIL 10 MG TABLET PO SCH (21:56)
[2019-02-08] MEDS: ALBUTEROL 2.5 MG/3 ML NEB RESP TX PRN (22:38)
[2019-02-09] MEDS: ALBUTEROL/IPRATROPIUM 3 ML NEB RESP TX SCH ×4 (00:37→19:23)
[2019-02-09] MEDS: CLINDAMYCIN INJ 300 MG in PREMIX 1 EACH IV SCH ×4 (00:39→16:31)
[2019-02-09] MEDS: methylPREDNISolone SOD SUC 40 MG/1 ML VIAL IV SCH ×3 (00:40→16:25)
[2019-02-09] MEDS: MEROPENEM 1,000 MG in SODIUM CHLORIDE 0.9% 100 ML IV SCH (02:58)
[2019-02-09 05:15] LABS: Basophils # 0.2 10*3/uL (0.0-0.2); Basophils % 0.7 % (0.0-0.8); Hematocrit 30.2 VOL% (42.0-52.0); Hemoglobin 9.5 GM/DL (14.0-18.0); Immature Granulocytes % 9.5 %; Immature Granulocytes Absolute 2.22 #; Lymphocytes # 0.9 10*3/uL (1.4-4.0); Mean Corpuscular HGB Conc 31.5 GM/DL (32-36); Mean Corpuscular Volume 88.8 FL (87-102); Mean Platelet Volume 9.5 FL (9.6-12.0); Monocytes % 0.7 % (1.7-12.7); Neutrophils % 85.1 % (38.7-73.9); Platelet Count 336 T/CUMM (130-400); Red Cell Distribution Width 16.3 % (9.3-17.3); White Blood Count 23.3 T/CUMM (4-12)
[2019-02-09] MEDS: ALBUTEROL 2.5 MG/3 ML NEB RESP TX PRN (05:17)
[2019-02-09 05:37] LABS: Calcium 8.8 MG/DL (8.5-10.1); Osmolality,Calculated 289.8 MOS/KG (273-304)
[2019-02-09 05:51] LABS: Band Neutrophils 1 % (0-10); Free T4 (Free Thyroxine) 0.99 NG/DL (0.76-1.46); Hypochromasia 1+; Lymphocytes 2 % (20-55); Promyelocytes 1 %; Segmented Neutrophils 94 % (50-85); Total Cells Counted 100
[2019-02-09 05:52] LABS: Microcytosis 1+; Platelet Estimate Normal
[2019-02-09] MEDS: DORNASE ALFA 2.5 MG/2.5 ML VIAL RESP TX SCH ×2 (07:31→19:23)
[2019-02-09] MEDS ORDERED: ETOMIDATE 20 MG/10 ML VIAL IV ONE (09:00)
[2019-02-09] MEDS ORDERED: PROPOFOL 200 MG/20 ML VIAL IV ONE (09:00)
[2019-02-09] MEDS ORDERED: LIDOCAINE 2% 5 ML VIAL ONE (09:00)
[2019-02-09] MEDS ORDERED: LACTATED RINGERS 500 ML IV SCH (10:00)
[2019-02-09] MEDS: INSULIN REGULAR 100 UNIT/ML SUBCUT SCH ×4 (10:54→21:32)
[2019-02-09] MEDS: DILTIAZEM 60 MG TABLET PO SCH ×4 (12:09→21:31)
[2019-02-09] MEDS: LACTULOSE 20 GM/30 ML UDCUP PO SCH ×3 (12:09→21:33)
[2019-02-09] MEDS: GABAPENTIN 600 MG TABLET PO SCH ×3 (12:10→21:31)
[2019-02-09] MEDS: NYSTATIN 500,000 UNIT/5 ML UDCUP SWISH/SWAL SCH ×4 (12:10→21:30)
[2019-02-09] MEDS ORDERED: DEXTROSE 50% 25 GM/50 ML VIAL IV PRN (12:42)
[2019-02-09] MEDS: TAMSULOSIN 0.4 MG CAPSULE PO SCH ×2 (13:17→21:31)
[2019-02-09] MEDS: FLUTICASONE/SALMETEROL 500-50 DISKUS 14 DOSE INH SCH ×2 (13:17→21:33)
[2019-02-09] MEDS: MONTELUKAST 10 MG TABLET PO SCH (13:18)
[2019-02-09] MEDS: MULTIVITAMIN (CENTRUM) TABLET PO SCH (13:18)
[2019-02-09] MEDS: DOCUSATE SODIUM 100 MG CAPSULE PO SCH ×2 (13:18→21:31)
[2019-02-09] MEDS: THEOPHYLLINE ER (24 HR) 200 MG CAPSULE PO SCH (13:18)
[2019-02-09] MEDS: SERTRALINE 50 MG TABLET PO SCH (13:18)
[2019-02-09] MEDS: POTASSIUM CHLORIDE 20 MEQ TABLET PO SCH ×2 (13:19→21:31)
[2019-02-09] MEDS: ASPIRIN EC 81 MG TABLET PO SCH (13:19)
[2019-02-09] MEDS: PANTOPRAZOLE 40 MG TABLET PO SCH (13:19)
[2019-02-09] MEDS: FUROSEMIDE 20 MG TABLET PO SCH (13:19)
[2019-02-09] MEDS: MEROPENEM 500 MG in SODIUM CHLORIDE 0.9% 100 ML IV SCH ×3 (13:19→21:32)
[2019-02-09] MEDS: ALLOPURINOL 100 MG TABLET PO SCH (13:19)
[2019-02-09] MEDS: oxyCODONE IR 5 MG TABLET PO PRN (16:26)
[2019-02-09] MEDS: DONEPEZIL 10 MG TABLET PO SCH (21:31)
[2019-02-09] MEDS: traZODone 50 MG TABLET PO SCH (21:32)
[2019-02-10] MEDS: CLINDAMYCIN INJ 300 MG in PREMIX 1 EACH IV SCH ×4 (00:09→18:31)
[2019-02-10] MEDS: methylPREDNISolone SOD SUC 40 MG/1 ML VIAL IV SCH ×3 (00:09→16:26)
[2019-02-10] MEDS: ALBUTEROL/IPRATROPIUM 3 ML NEB RESP TX SCH ×4 (00:18→19:43)
[2019-02-10] MEDS: MEROPENEM 500 MG in SODIUM CHLORIDE 0.9% 100 ML IV SCH ×4 (03:30→20:58)
[2019-02-10 06:05] LABS: Basophils % 0.1 % (0.0-0.8); Hematocrit 34.1 VOL% (42.0-52.0); Hemoglobin 10.9 GM/DL (14.0-18.0); Immature Granulocytes % 15.4 %; Immature Granulocytes Absolute 3.56 #; Lymphocytes # 0.9 10*3/uL (1.4-4.0); Lymphocytes % 4.1 % (21.2-54.2); Mean Corpuscular Volume 89.5 FL (87-102); Mean Platelet Volume 9.9 FL (9.6-12.0); Monocytes % 0.7 % (1.7-12.7); NRBC # 0.02 10*3/uL; Neutrophils % 79.7 % (38.7-73.9); Platelet Count 393 T/CUMM (130-400); Red Blood Count 3.81 MC/CUMM (3.8-5.5); Red Cell Distribution Width 16.7 % (9.3-17.3); White Blood Count 23.2 T/CUMM (4-12)
[2019-02-10 06:22] LABS: PT Patient Result 10.7 SECS (9.6-12.2)
[2019-02-10 06:37] LABS: Band Neutrophils 1 % (0-10); Hypochromasia 1+; Lymphocytes 3 % (20-55); Myelocytes 1 %; Promyelocytes 1 %; Segmented Neutrophils 93 % (50-85); Total Cells Counted 100
[2019-02-10 06:38] LABS: Microcytosis 1+
[2019-02-10 06:39] LABS: Platelet Estimate Normal
[2019-02-10 07:09] LABS: Osmolality,Calculated 286.1 MOS/KG (273-304)
[2019-02-10] MEDS: DORNASE ALFA 2.5 MG/2.5 ML VIAL RESP TX SCH ×2 (07:28→19:53)
[2019-02-10] MEDS ORDERED: diphenhydrAMINE 50 MG/1 ML VIAL IM ONE (08:00)
[2019-02-10] MEDS ORDERED: BENZONATATE 100 MG CAPSULE PO ONE (08:00)
[2019-02-10] MEDS ORDERED: MEPERIDINE 50 MG/1 ML VIAL IM ONE (08:00)
[2019-02-10] MEDS ORDERED: LIDOCAINE 2% VISCOUS 100 ML BOTTLE SWISH/SPIT ONE (08:30)
[2019-02-10] MEDS ORDERED: LIDOCAINE 1% 20 ML VIAL MISC INJ ONE (08:30)
[2019-02-10] MEDS ORDERED: LIDOCAINE 2% 20 ML VIAL RESP TX ONE (08:30)
[2019-02-10] MEDS ORDERED: MIDAZOLAM 2 MG/2 ML VIAL ONE (08:33)
[2019-02-10] MEDS: FLUTICASONE/SALMETEROL 500-50 DISKUS 14 DOSE INH SCH ×2 (08:37→20:57)
[2019-02-10] MEDS ORDERED: EPINEPHrine 1 MG/ML VIAL ONE (09:25)
[2019-02-10] MEDS ORDERED: ALBUTEROL/IPRATROPIUM 3 ML NEB RESP TX ONE (09:26)
[2019-02-10] MEDS ORDERED: EPINEPHrine 1 MG/ML VIAL SUBCUT ONE (09:30)
[2019-02-10] MEDS ORDERED: EPINEPHrine 1 MG/ML VIAL SUBCUT PRN (10:23)
[2019-02-10] MEDS: MONTELUKAST 10 MG TABLET PO SCH (10:25)
[2019-02-10] MEDS: MULTIVITAMIN (CENTRUM) TABLET PO SCH (10:25)
[2019-02-10] MEDS: DILTIAZEM 60 MG TABLET PO SCH ×4 (10:25→20:58)
[2019-02-10] MEDS: THEOPHYLLINE ER (24 HR) 200 MG CAPSULE PO SCH (10:25)
[2019-02-10] MEDS: SERTRALINE 50 MG TABLET PO SCH (10:26)
[2019-02-10] MEDS: ALLOPURINOL 100 MG TABLET PO SCH (10:26)
[2019-02-10] MEDS: TAMSULOSIN 0.4 MG CAPSULE PO SCH ×2 (10:26→20:58)
[2019-02-10] MEDS: POTASSIUM CHLORIDE 20 MEQ TABLET PO SCH ×2 (10:26→20:58)
[2019-02-10] MEDS: ASPIRIN EC 81 MG TABLET PO SCH (10:26)
[2019-02-10] MEDS: PANTOPRAZOLE 40 MG TABLET PO SCH (10:27)
[2019-02-10] MEDS: LACTULOSE 20 GM/30 ML UDCUP PO SCH ×3 (10:27→21:55)
[2019-02-10] MEDS: GABAPENTIN 600 MG TABLET PO SCH ×3 (10:27→20:58)
[2019-02-10] MEDS: NYSTATIN 500,000 UNIT/5 ML UDCUP SWISH/SWAL SCH ×4 (10:27→20:58)
[2019-02-10] MEDS: FUROSEMIDE 20 MG TABLET PO SCH (10:27)
[2019-02-10] MEDS: DOCUSATE SODIUM 100 MG CAPSULE PO SCH ×2 (10:27→20:58)
[2019-02-10] MEDS: INSULIN REGULAR 100 UNIT/ML SUBCUT SCH ×4 (13:16→21:55)
[2019-02-10] MEDS: APIXABAN 5 MG TABLET PO SCH ×2 (13:41→20:58)
[2019-02-10] MEDS: traZODone 50 MG TABLET PO SCH (20:58)
[2019-02-10] MEDS: DONEPEZIL 10 MG TABLET PO SCH (20:58)
[2019-02-10] MEDS: oxyCODONE IR 5 MG TABLET PO PRN (22:46)
[2019-02-10] MEDS: ALBUTEROL 2.5 MG/3 ML NEB RESP TX PRN (22:52)
[2019-02-11] MEDS: methylPREDNISolone SOD SUC 40 MG/1 ML VIAL IV SCH ×2 (00:44→09:26)
[2019-02-11] MEDS: CLINDAMYCIN INJ 300 MG in PREMIX 1 EACH IV SCH ×3 (00:44→11:45)
[2019-02-11] MEDS: ALBUTEROL/IPRATROPIUM 3 ML NEB RESP TX SCH ×2 (01:12→07:25)
[2019-02-11] MEDS: MEROPENEM 500 MG in SODIUM CHLORIDE 0.9% 100 ML IV SCH ×2 (03:35→09:20)
[2019-02-11 05:56] LABS: Basophils % 0.1 % (0.0-0.8); Hematocrit 33.2 VOL% (42.0-52.0); Hemoglobin 10.4 GM/DL (14.0-18.0); Immature Granulocytes % 16.7 %; Immature Granulocytes Absolute 4.71 #; Lymphocytes # 0.6 10*3/uL (1.4-4.0); Mean Corpuscular HGB Conc 31.3 GM/DL (32-36); Mean Corpuscular Volume 89.7 FL (87-102); Mean Platelet Volume 9.7 FL (9.6-12.0); Monocytes % 2.3 % (1.7-12.7); NRBC # 0.04 10*3/uL; Neutrophils % 78.9 % (38.7-73.9); Platelet Count 393 T/CUMM (130-400); Red Cell Distribution Width 16.8 % (9.3-17.3); White Blood Count 28.1 T/CUMM (4-12)
[2019-02-11 06:14] LABS: Calcium 8.5 MG/DL (8.5-10.1); Osmolality,Calculated 293.5 MOS/KG (273-304)
[2019-02-11 06:20] LABS: Lymphocytes 1 % (20-55); Myelocytes 2 %; Segmented Neutrophils 95 % (50-85); Total Cells Counted 100
[2019-02-11 06:21] LABS: Hypochromasia 1+; Microcytosis 1+; Platelet Estimate Normal
[2019-02-11] MEDS: DORNASE ALFA 2.5 MG/2.5 ML VIAL RESP TX SCH (07:25)
[2019-02-11] MEDS: MULTIVITAMIN (CENTRUM) TABLET PO SCH (09:17)
[2019-02-11] MEDS: MONTELUKAST 10 MG TABLET PO SCH (09:17)
[2019-02-11] MEDS: NYSTATIN 500,000 UNIT/5 ML UDCUP SWISH/SWAL SCH ×2 (09:17→12:20)
[2019-02-11] MEDS: THEOPHYLLINE ER (24 HR) 200 MG CAPSULE PO SCH (09:18)
[2019-02-11] MEDS: DILTIAZEM 60 MG TABLET PO SCH ×2 (09:18→12:21)
[2019-02-11] MEDS: ASPIRIN EC 81 MG TABLET PO SCH (09:19)
[2019-02-11] MEDS: GABAPENTIN 600 MG TABLET PO SCH (09:19)
[2019-02-11] MEDS: SERTRALINE 50 MG TABLET PO SCH (09:19)
[2019-02-11] MEDS: ALLOPURINOL 100 MG TABLET PO SCH (09:19)
[2019-02-11] MEDS: APIXABAN 5 MG TABLET PO SCH (09:19)
[2019-02-11] MEDS: DOCUSATE SODIUM 100 MG CAPSULE PO SCH (09:19)
[2019-02-11] MEDS: FUROSEMIDE 20 MG TABLET PO SCH (09:19)
[2019-02-11] MEDS: POTASSIUM CHLORIDE 20 MEQ TABLET PO SCH (09:20)
[2019-02-11] MEDS: LACTULOSE 20 GM/30 ML UDCUP PO SCH (09:20)
[2019-02-11] MEDS: PANTOPRAZOLE 40 MG TABLET PO SCH (09:20)
[2019-02-11] MEDS: TAMSULOSIN 0.4 MG CAPSULE PO SCH (09:20)
[2019-02-11] MEDS: INSULIN REGULAR 100 UNIT/ML SUBCUT SCH ×2 (09:29→12:21)
[2019-02-11] MEDS: FLUTICASONE/SALMETEROL 500-50 DISKUS 14 DOSE INH SCH (09:30)
[2019-02-11] MEDS ORDERED: MAGNESIUM SULF RIDER 2 GM in PREMIX 1 EACH IV ONE (10:00)
[2019-02-11 11:46] VITALS: BP 166/95
== END 2019-02-11 13:15 | disposition home health service (06) | DRG 178 ==
LOC: EDUNIT# → N.ED 19:19 → N.EDINP 02-06 00:21 → SUATTDRO 02-06 00:21 → N.2E 02-06 00:41
PROVIDERS: ADMIT Internal Medicine; ATTEND Internal Medicine

== ENCOUNTER 2019-03-28 10:17 | Inpatient (IN) ==
[2019-03-28] MEDS ORDERED: methylPREDNISolone SOD SUC 125 MG/2 ML VIAL IV STA (10:49)
[2019-03-28 11:00] LABS: Basophils # 0.1 10*3/uL (0.0-0.2); Basophils % 0.5 % (0.0-0.8); Eosinophils % 0.1 % (0.00-10.9); Hematocrit 38.1 VOL% (42.0-52.0); Hemoglobin 11.9 GM/DL (14.0-18.0); Immature Granulocytes Absolute 0.86 #; Lymphocytes # 0.6 10*3/uL (1.4-4.0); Lymphocytes % 3.7 % (21.2-54.2); Mean Corpuscular HGB Conc 31.2 GM/DL (32-36); Mean Platelet Volume 9.1 FL (9.6-12.0); Monocytes % 6.3 % (1.7-12.7); Neutrophils % 84.4 % (38.7-73.9); Platelet Count 285 T/CUMM (130-400); Red Blood Count 4.14 MC/CUMM (3.8-5.5); Red Cell Distribution Width 17.3 % (9.3-17.3); White Blood Count 17.2 T/CUMM (4-12)
[2019-03-28] MEDS ORDERED: ALBUTEROL 2.5 MG/3 ML NEB RESP TX SCH (11:00)
[2019-03-28 11:07] LABS: Alanine Aminotransferase 58 U/L (16-61); Albumin 3.2 G/DL (3.4-5.0); Alkaline Phosphatase 154 U/L (45-117); Aspartate Amino Transferase 13 U/L (0-37); Bilirubin,Total < 0.39 MG/DL (0.2-1.0); Blood Urea Nitrogen 16 MG/DL (7-18); Calcium 8.6 MG/DL (8.5-10.1); Estimated Glom Filtration Rate 103 ML/MIN; Glucose 220 MG/DL (74-106); Osmolality,Calculated 280.8 MOS/KG (273-304); Total Protein 6.1 G/DL (6.4-8.3)
[2019-03-28 11:14] LABS: Apearance,Urine CLEAR (Clear); Bilirubin,Urine Negative (Negative); Blood, Urine Negative (Negative); Glucose,Urine (UA) 150 mg/dL (Negative); Ketones,Urine Negative (Negative); Mucus,Urine Occasional /LPF (Occasional); Nitrite,Urine Negative (Negative); Protein,Urine Negative; RBC,Urine 2 /HPF (0-4); Squamous Epithelial Cell,Urine Occasional /HPF (0-10); Urine Color Yellow (Yellow); Urine Specific Gravity 1.017 (1.001-1.035); Urine Urobilinogen < 2.0 EU/DL (0.2-1.0); WBC,Urine <1 /HPF (0-6)
[2019-03-28 11:50] LABS: Band Neutrophils 2 % (0-10); Hypochromasia 1+; Lymphocytes 4 % (20-55); Segmented Neutrophils 87 % (50-85); Total Cells Counted 100
[2019-03-28 13:18] LABS: ABG HCO3 28.5 MMOL/L (20-26); ABG Oxygen Saturation 79.2 % (95-100); ABG PCO2 58.1 MM HG (35-48); ABG PH 7.353 (7.35-7.45); ABG PO2 47.4 MM HG (80-95); ABG TCO2 28.8 MMOL/L (23-27)
[2019-03-28] MEDS ORDERED: MEROPENEM 500 MG in SODIUM CHLORIDE 0.9% 100 ML IV ONE (14:13)
[2019-03-28] MEDS ORDERED: ONDANSETRON 4 MG/2 ML VIAL IV PRN (15:11)
[2019-03-28] MEDS: MEROPENEM 500 MG in SODIUM CHLORIDE 0.9% 100 ML IV SCH ×2 (15:31→21:31)
[2019-03-28] MEDS: ASPIRIN EC 81 MG TABLET PO SCH (15:55)
[2019-03-28] MEDS: allopurinoL 100 MG TABLET PO SCH (15:58)
[2019-03-28] MEDS: PANTOPRAZOLE 40 MG TABLET PO SCH (15:58)
[2019-03-28] MEDS: TAMSULOSIN 0.4 MG CAPSULE PO SCH (15:58)
[2019-03-28] MEDS: THEOPHYLLINE ER (24 HR) 400 MG TABLET PO SCH ×2 (15:58→20:54)
[2019-03-28] MEDS: ERGOCALCIFEROL 50,000 UNIT CAPSULE PO SCH (15:58)
[2019-03-28] MEDS: SODIUM CHLORIDE 0.9% 1,000 ML IV SCH (16:24)
[2019-03-28] MEDS: ENOXAPARIN 40 MG/0.4 ML SYRINGE SUBCUT SCH (16:25)
[2019-03-28] MEDS: DILTIAZEM 60 MG TABLET PO SCH ×2 (16:26→20:54)
[2019-03-28] MEDS: ALBUTEROL/IPRATROPIUM 3 ML NEB RESP TX SCH ×2 (16:47→20:30)
[2019-03-28] MEDS: methylPREDNISolone SOD SUC 40 MG/1 ML VIAL IV SCH (18:19)
[2019-03-28] MEDS: DONEPEZIL 10 MG TABLET PO SCH (20:54)
[2019-03-28] MEDS: traZODone 50 MG TABLET PO SCH (20:54)
[2019-03-29] MEDS: ALBUTEROL/IPRATROPIUM 3 ML NEB RESP TX SCH ×6 (00:23→18:55)
[2019-03-29] MEDS: SODIUM CHLORIDE 0.9% 1,000 ML IV SCH (01:43)
[2019-03-29] MEDS: methylPREDNISolone SOD SUC 40 MG/1 ML VIAL IV SCH ×3 (03:04→18:17)
[2019-03-29 03:07] LABS: ABG Base Excess 7.6 MMOL/L (-2.5-2.5); ABG HCO3 31.4 MMOL/L (20-26); ABG Oxygen Saturation 98.8 % (95-100); ABG PCO2 49.9 MM HG (35-48); ABG PH 7.431 (7.35-7.45); ABG TCO2 29.9 MMOL/L (23-27); Allen Test Positive; Pt O2 Delivery Device BIPAP
[2019-03-29] MEDS: MEROPENEM 500 MG in SODIUM CHLORIDE 0.9% 100 ML IV SCH ×4 (03:09→22:03)
[2019-03-29 05:09] LABS: Basophils % 0.2 % (0.0-0.8); Hematocrit 32.3 VOL% (42.0-52.0); Hemoglobin 10.2 GM/DL (14.0-18.0); Immature Granulocytes % 3.8 %; Lymphocytes # 0.7 10*3/uL (1.4-4.0); Lymphocytes % 4.9 % (21.2-54.2); Mean Corpuscular HGB Conc 31.6 GM/DL (32-36); Mean Corpuscular Volume 90.7 FL (87-102); Mean Platelet Volume 9.2 FL (9.6-12.0); Monocytes % 3.9 % (1.7-12.7); Neutrophils % 87.2 % (38.7-73.9); Platelet Count 255 T/CUMM (130-400); Red Blood Count 3.56 MC/CUMM (3.8-5.5); Red Cell Distribution Width 17.3 % (9.3-17.3); White Blood Count 13.3 T/CUMM (4-12)
[2019-03-29 06:01] LABS: Calcium 8.3 MG/DL (8.5-10.1); Osmolality,Calculated 283.7 MOS/KG (273-304)
[2019-03-29 06:15] LABS: Band Neutrophils 3 % (0-10); Lymphocytes 6 % (20-55); Segmented Neutrophils 87 % (50-85); Total Cells Counted 100
[2019-03-29 06:16] LABS: Hypochromasia 2+; Platelet Estimate Normal
[2019-03-29] MEDS: TAMSULOSIN 0.4 MG CAPSULE PO SCH (09:00)
[2019-03-29] MEDS: ASPIRIN EC 81 MG TABLET PO SCH (09:00)
[2019-03-29] MEDS: THEOPHYLLINE ER (24 HR) 400 MG TABLET PO SCH ×2 (09:00→22:05)
[2019-03-29] MEDS: DILTIAZEM 60 MG TABLET PO SCH ×4 (09:00→22:04)
[2019-03-29] MEDS: PANTOPRAZOLE 40 MG TABLET PO SCH (09:01)
[2019-03-29] MEDS: allopurinoL 100 MG TABLET PO SCH (09:01)
[2019-03-29] MEDS ORDERED: guaiFENesin/CODEINE 5 ML LIQUID PO PRN (12:23)
[2019-03-29] MEDS: FUROSEMIDE 20 MG TABLET PO SCH ×2 (12:49→22:04)
[2019-03-29] MEDS: glipiZIDE 5 MG TABLET PO SCH ×2 (12:49→22:05)
[2019-03-29] MEDS: POTASSIUM CHLORIDE 10 MEQ TABLET PO SCH ×2 (12:49→22:05)
[2019-03-29] MEDS: ENOXAPARIN 40 MG/0.4 ML SYRINGE SUBCUT SCH (15:11)
[2019-03-29] MEDS ORDERED: DEXTROSE 50% 25 GM/50 ML VIAL IV PRN (16:25)
[2019-03-29] MEDS ORDERED: GLUCAGON 1 MG VIAL IM PRN (16:25)
[2019-03-29] MEDS: INSULIN REGULAR 100 UNIT/ML SUBCUT SCH ×2 (16:30→22:05)
[2019-03-29] MEDS: SERTRALINE 50 MG TABLET PO SCH (22:03)
[2019-03-29] MEDS: DONEPEZIL 10 MG TABLET PO SCH (22:04)
[2019-03-29] MEDS: traZODone 50 MG TABLET PO SCH (22:05)
[2019-03-30] MEDS: ALBUTEROL/IPRATROPIUM 3 ML NEB RESP TX SCH ×8 (00:40→23:42)
[2019-03-30] MEDS: methylPREDNISolone SOD SUC 40 MG/1 ML VIAL IV SCH ×3 (04:30→18:53)
[2019-03-30] MEDS: MEROPENEM 500 MG in SODIUM CHLORIDE 0.9% 100 ML IV SCH ×4 (04:30→21:26)
[2019-03-30 05:42] LABS: Basophils % 0.2 % (0.0-0.8); Hematocrit 35.9 VOL% (42.0-52.0); Hemoglobin 11.7 GM/DL (14.0-18.0); Immature Granulocytes % 1.9 %; Immature Granulocytes Absolute 0.42 #; Lymphocytes # 0.6 10*3/uL (1.4-4.0); Lymphocytes % 2.6 % (21.2-54.2); Mean Corpuscular HGB Conc 32.6 GM/DL (32-36); Mean Corpuscular Volume 88.6 FL (87-102); Mean Platelet Volume 9.4 FL (9.6-12.0); Monocytes % 4.2 % (1.7-12.7); Neutrophils % 91.1 % (38.7-73.9); Platelet Count 316 T/CUMM (130-400); Red Blood Count 4.05 MC/CUMM (3.8-5.5); Red Cell Distribution Width 17.4 % (9.3-17.3); White Blood Count 21.8 T/CUMM (4-12)
[2019-03-30 06:02] LABS: Band Neutrophils 2 % (0-10); Hypochromasia 1+; Lymphocytes 1 % (20-55); Platelet Estimate Adequate; Segmented Neutrophils 95 % (50-85); Total Cells Counted 100
[2019-03-30 06:05] LABS: Calcium 8.8 MG/DL (8.5-10.1); Osmolality,Calculated 288.1 MOS/KG (273-304)
[2019-03-30] MEDS: INSULIN REGULAR 100 UNIT/ML SUBCUT SCH ×4 (09:05→21:27)
[2019-03-30] MEDS: ASPIRIN EC 81 MG TABLET PO SCH (09:09)
[2019-03-30] MEDS: glipiZIDE 5 MG TABLET PO SCH ×2 (09:12→21:27)
[2019-03-30] MEDS: FUROSEMIDE 20 MG TABLET PO SCH ×2 (09:13→21:27)
[2019-03-30] MEDS: THEOPHYLLINE ER (24 HR) 400 MG TABLET PO SCH ×2 (09:13→21:26)
[2019-03-30] MEDS: POTASSIUM CHLORIDE 10 MEQ TABLET PO SCH ×2 (09:13→21:26)
[2019-03-30] MEDS: PANTOPRAZOLE 40 MG TABLET PO SCH (09:13)
[2019-03-30] MEDS: allopurinoL 100 MG TABLET PO SCH (09:14)
[2019-03-30 09:18] LABS: ABG Base Excess 10.3 MMOL/L (-2.5-2.5); ABG Oxygen Saturation 94.1 % (95-100); ABG PCO2 47.2 MM HG (35-48); ABG PH 7.483 (7.35-7.45); ABG PO2 69.4 MM HG (80-95); Allen Test Positive
[2019-03-30] MEDS: TAMSULOSIN 0.4 MG CAPSULE PO SCH (09:19)
[2019-03-30] MEDS: DILTIAZEM 60 MG TABLET PO SCH ×4 (09:20→21:27)
[2019-03-30] MEDS ORDERED: EPINEPHrine 1 MG/ML VIAL SUBCUT ONE (09:58)
[2019-03-30] MEDS ORDERED: GLUCAGON 1 MG VIAL IM PRN (13:27)
[2019-03-30] MEDS ORDERED: DEXTROSE 50% 25 GM/50 ML VIAL IV PRN (13:27)
[2019-03-30] MEDS: ENOXAPARIN 40 MG/0.4 ML SYRINGE SUBCUT SCH (14:14)
[2019-03-30] MEDS: SERTRALINE 50 MG TABLET PO SCH (17:13)
[2019-03-30] MEDS: DONEPEZIL 10 MG TABLET PO SCH (21:26)
[2019-03-30] MEDS: traZODone 50 MG TABLET PO SCH (21:27)
[2019-03-31] MEDS: ALBUTEROL/IPRATROPIUM 3 ML NEB RESP TX SCH ×6 (03:02→22:46)
[2019-03-31] MEDS: methylPREDNISolone SOD SUC 40 MG/1 ML VIAL IV SCH ×3 (04:25→21:31)
[2019-03-31] MEDS: MEROPENEM 500 MG in SODIUM CHLORIDE 0.9% 100 ML IV SCH ×3 (04:30→14:18)
[2019-03-31] MEDS: INSULIN REGULAR 100 UNIT/ML SUBCUT SCH ×4 (08:49→21:33)
[2019-03-31] MEDS: ASPIRIN EC 81 MG TABLET PO SCH (08:50)
[2019-03-31] MEDS: DILTIAZEM 60 MG TABLET PO SCH ×4 (08:50→21:32)
[2019-03-31] MEDS: THEOPHYLLINE ER (24 HR) 400 MG TABLET PO SCH ×2 (08:50→21:33)
[2019-03-31] MEDS: glipiZIDE 5 MG TABLET PO SCH ×2 (08:50→21:33)
[2019-03-31] MEDS: PANTOPRAZOLE 40 MG TABLET PO SCH (08:51)
[2019-03-31] MEDS: TAMSULOSIN 0.4 MG CAPSULE PO SCH (08:51)
[2019-03-31] MEDS: FUROSEMIDE 20 MG TABLET PO SCH ×2 (08:51→21:33)
[2019-03-31] MEDS: POTASSIUM CHLORIDE 10 MEQ TABLET PO SCH ×2 (08:51→21:33)
[2019-03-31] MEDS: allopurinoL 100 MG TABLET PO SCH (08:51)
[2019-03-31] MEDS ORDERED: EPINEPHrine 1 MG/ML VIAL SUBCUT ONE (09:43)
[2019-03-31] MEDS: ENOXAPARIN 40 MG/0.4 ML SYRINGE SUBCUT SCH (14:18)
[2019-03-31] MEDS: EPINEPHrine 1 MG/ML VIAL SUBCUT SCH ×2 (14:18→21:42)
[2019-03-31] MEDS: AZITHROMYCIN 250 MG TABLET PO SCH (15:12)
[2019-03-31] MEDS: SERTRALINE 50 MG TABLET PO SCH (16:41)
[2019-03-31] MEDS: BUDESONIDE/FORMOTEROL 160-4.5 INHALER 6 GM INH SCH (21:32)
[2019-03-31] MEDS: traZODone 50 MG TABLET PO SCH (21:32)
[2019-03-31] MEDS: DONEPEZIL 10 MG TABLET PO SCH (21:33)
[2019-04-01] MEDS: ALBUTEROL/IPRATROPIUM 3 ML NEB RESP TX SCH ×6 (03:11→23:10)
[2019-04-01] MEDS: methylPREDNISolone SOD SUC 40 MG/1 ML VIAL IV SCH ×3 (03:42→18:44)
[2019-04-01 06:18] LABS: Basophils # 0.1 10*3/uL (0.0-0.2); Basophils % 0.2 % (0.0-0.8); Hematocrit 36.2 VOL% (42.0-52.0); Hemoglobin 11.8 GM/DL (14.0-18.0); Immature Granulocytes Absolute 0.63 #; Lymphocytes # 0.3 10*3/uL (1.4-4.0); Lymphocytes % 1.2 % (21.2-54.2); Mean Corpuscular HGB Conc 32.6 GM/DL (32-36); Mean Corpuscular Volume 87.9 FL (87-102); Mean Platelet Volume 9.5 FL (9.6-12.0); Monocytes % 2.7 % (1.7-12.7); NRBC # 0.02 10*3/uL; Neutrophils % 92.9 % (38.7-73.9); Platelet Count 322 T/CUMM (130-400); Red Blood Count 4.12 MC/CUMM (3.8-5.5); White Blood Count 20.7 T/CUMM (4-12)
[2019-04-01 06:39] LABS: Calcium 8.2 MG/DL (8.5-10.1); Osmolality,Calculated 282.4 MOS/KG (273-304)
[2019-04-01 06:45] LABS: Hypochromasia 1+; Lymphocytes 1 % (20-55); Platelet Estimate Adequate; Segmented Neutrophils 97 % (50-85); Total Cells Counted 100
[2019-04-01] MEDS ORDERED: ALBUTEROL/IPRATROPIUM 3 ML NEB RESP TX ONE ×2 (09:45)
[2019-04-01 09:46] LABS: ABG Base Excess 10.2 MMOL/L (-2.5-2.5); ABG Oxygen Saturation 97.8 % (95-100); ABG PO2 97.2 MM HG (80-95); ABG TCO2 31.4 MMOL/L (23-27); Allen Test Positive
[2019-04-01] MEDS: ASPIRIN EC 81 MG TABLET PO SCH (10:23)
[2019-04-01] MEDS: allopurinoL 100 MG TABLET PO SCH (10:23)
[2019-04-01] MEDS: POTASSIUM CHLORIDE 10 MEQ TABLET PO SCH ×2 (10:23→22:22)
[2019-04-01] MEDS: glipiZIDE 5 MG TABLET PO SCH ×2 (10:23→21:51)
[2019-04-01] MEDS: TAMSULOSIN 0.4 MG CAPSULE PO SCH (10:23)
[2019-04-01] MEDS: AZITHROMYCIN 250 MG TABLET PO SCH (10:24)
[2019-04-01] MEDS: INSULIN REGULAR 100 UNIT/ML SUBCUT SCH ×4 (10:24→22:14)
[2019-04-01] MEDS: FUROSEMIDE 20 MG TABLET PO SCH ×2 (10:24→22:22)
[2019-04-01] MEDS: DILTIAZEM 60 MG TABLET PO SCH ×4 (10:24→21:48)
[2019-04-01] MEDS: PANTOPRAZOLE 40 MG TABLET PO SCH (10:24)
[2019-04-01] MEDS: EPINEPHrine 1 MG/ML VIAL SUBCUT SCH ×2 (10:25→21:49)
[2019-04-01] MEDS: BUDESONIDE/FORMOTEROL 160-4.5 INHALER 6 GM INH SCH (10:26)
[2019-04-01] MEDS: THEOPHYLLINE ER (24 HR) 400 MG TABLET PO SCH (10:27)
[2019-04-01] MEDS: MEROPENEM 500 MG in SODIUM CHLORIDE 0.9% 100 ML IV SCH ×2 (11:47→18:45)
[2019-04-01] MEDS: SERTRALINE 50 MG TABLET PO SCH (16:43)
[2019-04-01] MEDS: ENOXAPARIN 40 MG/0.4 ML SYRINGE SUBCUT SCH (16:43)
[2019-04-01] MEDS: DONEPEZIL 10 MG TABLET PO SCH (21:45)
[2019-04-01] MEDS: traZODone 50 MG TABLET PO SCH (21:48)
[2019-04-01] MEDS: INSULIN GLARGINE 100 UNIT/ML SUBCUT SCH (22:14)
[2019-04-02] MEDS: MEROPENEM 500 MG in SODIUM CHLORIDE 0.9% 100 ML IV SCH ×4 (03:13→21:43)
[2019-04-02] MEDS: BUDESONIDE/FORMOTEROL 160-4.5 INHALER 6 GM INH SCH ×3 (03:15→21:32)
[2019-04-02] MEDS: ALBUTEROL/IPRATROPIUM 3 ML NEB RESP TX SCH ×6 (03:25→23:58)
[2019-04-02] MEDS: methylPREDNISolone SOD SUC 40 MG/1 ML VIAL IV SCH ×3 (03:51→18:35)
[2019-04-02 05:44] LABS: Basophils # 0.1 10*3/uL (0.0-0.2); Basophils % 0.3 % (0.0-0.8); Hematocrit 36.4 VOL% (42.0-52.0); Hemoglobin 11.7 GM/DL (14.0-18.0); Immature Granulocytes % 4.7 %; Immature Granulocytes Absolute 0.95 #; Lymphocytes # 0.2 10*3/uL (1.4-4.0); Lymphocytes % 1.2 % (21.2-54.2); Mean Corpuscular HGB Conc 32.1 GM/DL (32-36); Mean Corpuscular Volume 88.6 FL (87-102); Mean Platelet Volume 9.5 FL (9.6-12.0); Monocytes % 2.5 % (1.7-12.7); Neutrophils % 91.3 % (38.7-73.9); Platelet Count 294 T/CUMM (130-400); Red Blood Count 4.11 MC/CUMM (3.8-5.5); Red Cell Distribution Width 16.7 % (9.3-17.3); White Blood Count 20.3 T/CUMM (4-12)
[2019-04-02 05:45] LABS: INR 0.9; PT Patient Result 10.1 SECS (9.6-12.2)
[2019-04-02 06:06] LABS: Hypochromasia 1+; Lymphocytes 1 % (20-55); Polychromasia Slight; Segmented Neutrophils 95 % (50-85); Total Cells Counted 100
[2019-04-02 06:07] LABS: Microcytosis 1+; Platelet Estimate Normal
[2019-04-02 06:17] LABS: Calcium 8.3 MG/DL (8.5-10.1); Osmolality,Calculated 282.4 MOS/KG (273-304)
[2019-04-02] MEDS ORDERED: BENZONATATE 100 MG CAPSULE PO ONE (08:00)
[2019-04-02] MEDS ORDERED: MEPERIDINE 25 MG/1 ML VIAL IM ONE (08:00)
[2019-04-02] MEDS ORDERED: diphenhydrAMINE 50 MG/1 ML VIAL IM ONE (08:00)
[2019-04-02] MEDS ORDERED: LIDOCAINE 1% 20 ML VIAL MISC INJ ONE (08:30)
[2019-04-02] MEDS ORDERED: LIDOCAINE 2% VISCOUS 100 ML BOTTLE SWISH/SPIT ONE (08:30)
[2019-04-02] MEDS ORDERED: LIDOCAINE 2% 20 ML VIAL RESP TX ONE (08:30)
[2019-04-02] MEDS ORDERED: THEOPHYLLINE ER (24 HR) 400 MG TABLET PO SCH (10:06)
[2019-04-02] MEDS: INSULIN REGULAR 100 UNIT/ML SUBCUT SCH ×4 (10:18→21:33)
[2019-04-02] MEDS: DILTIAZEM 60 MG TABLET PO SCH ×4 (10:19→21:32)
[2019-04-02] MEDS: EPINEPHrine 1 MG/ML VIAL SUBCUT SCH ×2 (12:28→21:50)
[2019-04-02] MEDS: ASPIRIN EC 81 MG TABLET PO SCH (12:29)
[2019-04-02] MEDS: POTASSIUM CHLORIDE 10 MEQ TABLET PO SCH ×2 (12:29→21:31)
[2019-04-02] MEDS: glipiZIDE 5 MG TABLET PO SCH ×2 (12:29→21:31)
[2019-04-02] MEDS: TAMSULOSIN 0.4 MG CAPSULE PO SCH (12:29)
[2019-04-02] MEDS: FUROSEMIDE 20 MG TABLET PO SCH ×2 (12:29→21:32)
[2019-04-02] MEDS: allopurinoL 100 MG TABLET PO SCH (12:29)
[2019-04-02] MEDS: PANTOPRAZOLE 40 MG TABLET PO SCH (12:29)
[2019-04-02] MEDS: ENOXAPARIN 40 MG/0.4 ML SYRINGE SUBCUT SCH (15:52)
[2019-04-02] MEDS: INSULIN GLARGINE 100 UNIT/ML SUBCUT SCH ×2 (16:14→21:32)
[2019-04-02] MEDS: SERTRALINE 50 MG TABLET PO SCH (16:14)
[2019-04-02] MEDS ORDERED: INSULIN LISPRO 100 UNIT/ML SUBCUT ONE (16:45)
[2019-04-02] MEDS: DONEPEZIL 10 MG TABLET PO SCH (21:31)
[2019-04-02] MEDS: traZODone 50 MG TABLET PO SCH (21:31)
[2019-04-02] MEDS: THEOPHYLLINE ER (24 HR) 300 MG CAPSULE PO SCH (21:32)
[2019-04-02] MEDS: SKIN HEALING OINT (AQUAPHOR) 50 GM TUBE TOP PRN (21:40)
[2019-04-03] MEDS: MEROPENEM 500 MG in SODIUM CHLORIDE 0.9% 100 ML IV SCH ×4 (02:53→21:07)
[2019-04-03] MEDS: methylPREDNISolone SOD SUC 40 MG/1 ML VIAL IV SCH ×3 (03:02→23:39)
[2019-04-03] MEDS: ALBUTEROL/IPRATROPIUM 3 ML NEB RESP TX SCH ×6 (03:41→23:10)
[2019-04-03 05:03] LABS: Basophils # 0.1 10*3/uL (0.0-0.2); Basophils % 0.5 % (0.0-0.8); Hematocrit 35.6 VOL% (42.0-52.0); Hemoglobin 11.3 GM/DL (14.0-18.0); Immature Granulocytes % 4.5 %; Immature Granulocytes Absolute 0.86 #; Lymphocytes # 0.2 10*3/uL (1.4-4.0); Lymphocytes % 1.1 % (21.2-54.2); Mean Corpuscular HGB Conc 31.7 GM/DL (32-36); Mean Corpuscular Volume 89.4 FL (87-102); Mean Platelet Volume 9.8 FL (9.6-12.0); Monocytes % 3.4 % (1.7-12.7); Neutrophils % 90.5 % (38.7-73.9); Platelet Count 315 T/CUMM (130-400); Red Blood Count 3.98 MC/CUMM (3.8-5.5); Red Cell Distribution Width 16.5 % (9.3-17.3); White Blood Count 18.9 T/CUMM (4-12)
[2019-04-03 05:30] LABS: Hypochromasia 1+; Lymphocytes 2 % (20-55); Microcytosis 1+; Platelet Estimate Adequate; Segmented Neutrophils 96 % (50-85); Total Cells Counted 100
[2019-04-03 05:49] LABS: Calcium 8.3 MG/DL (8.5-10.1); Osmolality,Calculated 287.5 MOS/KG (273-304)
[2019-04-03] MEDS ORDERED: ALENDRONATE 35 MG PO SCH (06:30)
[2019-04-03 08:20] LABS: ABG Base Excess 13.1 MMOL/L (-2.5-2.5); ABG HCO3 36.9 MMOL/L (20-26); ABG Oxygen Saturation 97.3 % (95-100); ABG PCO2 57.3 MM HG (35-48); ABG TCO2 35.1 MMOL/L (23-27)
[2019-04-03] MEDS: TAMSULOSIN 0.4 MG CAPSULE PO SCH (10:15)
[2019-04-03] MEDS: PANTOPRAZOLE 40 MG TABLET PO SCH (10:15)
[2019-04-03] MEDS: FUROSEMIDE 20 MG TABLET PO SCH ×2 (10:15→21:09)
[2019-04-03] MEDS: glipiZIDE 5 MG TABLET PO SCH ×2 (10:15→21:07)
[2019-04-03] MEDS: allopurinoL 100 MG TABLET PO SCH (10:15)
[2019-04-03] MEDS: DILTIAZEM 60 MG TABLET PO SCH ×4 (10:16→21:07)
[2019-04-03] MEDS: ASPIRIN EC 81 MG TABLET PO SCH (10:16)
[2019-04-03] MEDS: INSULIN REGULAR 100 UNIT/ML SUBCUT SCH ×4 (10:17→21:07)
[2019-04-03] MEDS: BUDESONIDE/FORMOTEROL 160-4.5 INHALER 6 GM INH SCH ×2 (10:17→21:12)
[2019-04-03] MEDS: THEOPHYLLINE ER (24 HR) 300 MG CAPSULE PO SCH ×2 (10:17→21:09)
[2019-04-03] MEDS: POTASSIUM CHLORIDE 10 MEQ TABLET PO SCH ×2 (10:17→21:08)
[2019-04-03] MEDS: EPINEPHrine 1 MG/ML VIAL SUBCUT SCH ×3 (10:18→22:38)
[2019-04-03] MEDS ORDERED: EPINEPHrine 1 MG/ML VIAL SUBCUT ONE (11:58)
[2019-04-03] MEDS ORDERED: ALBUTEROL/IPRATROPIUM 3 ML NEB RESP TX ONE (11:58)
[2019-04-03] MEDS: INSULIN LISPRO 100 UNIT/ML SUBCUT SCH ×2 (16:42→21:07)
[2019-04-03] MEDS: AZITHROMYCIN 250 MG TABLET PO SCH (16:42)
[2019-04-03] MEDS: SERTRALINE 50 MG TABLET PO SCH (16:42)
[2019-04-03] MEDS: ENOXAPARIN 40 MG/0.4 ML SYRINGE SUBCUT SCH (16:43)
[2019-04-03] MEDS: FLUCONAZOLE INJ 100 MG in IV BAG 1 EACH IV SCH (17:14)
[2019-04-03] MEDS: INSULIN GLARGINE 100 UNIT/ML SUBCUT SCH (21:07)
[2019-04-03] MEDS: DONEPEZIL 10 MG TABLET PO SCH (21:07)
[2019-04-03] MEDS: traZODone 50 MG TABLET PO SCH (21:07)
[2019-04-03] MEDS ORDERED: LACTULOSE 20 GM/30 ML UDCUP PO PRN (21:44)
[2019-04-03] MEDS ORDERED: LACTULOSE 20 GM/30 ML UDCUP PO SCH (22:00)
[2019-04-04] MEDS: MEROPENEM 500 MG in SODIUM CHLORIDE 0.9% 100 ML IV SCH ×4 (02:36→21:15)
[2019-04-04] MEDS: ALBUTEROL/IPRATROPIUM 3 ML NEB RESP TX SCH ×6 (03:05→23:38)
[2019-04-04] MEDS: methylPREDNISolone SOD SUC 40 MG/1 ML VIAL IV SCH ×3 (08:30→23:00)
[2019-04-04] MEDS: INSULIN LISPRO 100 UNIT/ML SUBCUT SCH ×4 (09:04→22:33)
[2019-04-04] MEDS: INSULIN REGULAR 100 UNIT/ML SUBCUT SCH ×4 (09:04→22:33)
[2019-04-04] MEDS: allopurinoL 100 MG TABLET PO SCH (09:06)
[2019-04-04] MEDS: POTASSIUM CHLORIDE 10 MEQ TABLET PO SCH ×2 (09:06→21:12)
[2019-04-04] MEDS: THEOPHYLLINE ER (24 HR) 300 MG CAPSULE PO SCH ×2 (09:06→23:00)
[2019-04-04] MEDS: TAMSULOSIN 0.4 MG CAPSULE PO SCH (09:06)
[2019-04-04] MEDS: DILTIAZEM 60 MG TABLET PO SCH ×4 (09:06→21:12)
[2019-04-04] MEDS: FUROSEMIDE 20 MG TABLET PO SCH ×2 (09:06→21:12)
[2019-04-04] MEDS: PANTOPRAZOLE 40 MG TABLET PO SCH (09:07)
[2019-04-04] MEDS: ASPIRIN EC 81 MG TABLET PO SCH (09:07)
[2019-04-04] MEDS: glipiZIDE 5 MG TABLET PO SCH ×2 (09:07→21:12)
[2019-04-04] MEDS: BUDESONIDE/FORMOTEROL 160-4.5 INHALER 6 GM INH SCH ×2 (09:08→21:18)
[2019-04-04] MEDS: EPINEPHrine 1 MG/ML VIAL SUBCUT SCH ×2 (09:08→21:14)
[2019-04-04] MEDS: FLUCONAZOLE INJ 100 MG in IV BAG 1 EACH IV SCH (13:17)
[2019-04-04] MEDS: ENOXAPARIN 40 MG/0.4 ML SYRINGE SUBCUT SCH (16:00)
[2019-04-04] MEDS: ERGOCALCIFEROL 50,000 UNIT CAPSULE PO SCH (16:00)
[2019-04-04] MEDS: SERTRALINE 50 MG TABLET PO SCH (17:15)
[2019-04-04] MEDS: ARFORMOTEROL 15 MCG/2 ML NEB RESP TX SCH (19:10)
[2019-04-04] MEDS: traZODone 50 MG TABLET PO SCH (21:12)
[2019-04-04] MEDS: DONEPEZIL 10 MG TABLET PO SCH (21:12)
[2019-04-04] MEDS: INSULIN GLARGINE 100 UNIT/ML SUBCUT SCH (22:33)
[2019-04-05] MEDS: MEROPENEM 500 MG in SODIUM CHLORIDE 0.9% 100 ML IV SCH ×4 (02:13→20:52)
[2019-04-05] MEDS: ALBUTEROL/IPRATROPIUM 3 ML NEB RESP TX SCH ×5 (04:40→18:38)
[2019-04-05] MEDS: ARFORMOTEROL 15 MCG/2 ML NEB RESP TX SCH ×2 (07:42→18:38)
[2019-04-05] MEDS: methylPREDNISolone SOD SUC 40 MG/1 ML VIAL IV SCH ×2 (08:40→15:50)
[2019-04-05] MEDS: allopurinoL 100 MG TABLET PO SCH (09:01)
[2019-04-05] MEDS: ASPIRIN EC 81 MG TABLET PO SCH (09:01)
[2019-04-05] MEDS: POTASSIUM CHLORIDE 10 MEQ TABLET PO SCH ×2 (09:02→20:19)
[2019-04-05] MEDS: DILTIAZEM 60 MG TABLET PO SCH ×4 (09:02→20:19)
[2019-04-05] MEDS: PANTOPRAZOLE 40 MG TABLET PO SCH (09:02)
[2019-04-05] MEDS: TAMSULOSIN 0.4 MG CAPSULE PO SCH (09:02)
[2019-04-05] MEDS: glipiZIDE 5 MG TABLET PO SCH (09:02)
[2019-04-05] MEDS: FUROSEMIDE 20 MG TABLET PO SCH ×2 (09:02→20:19)
[2019-04-05] MEDS: THEOPHYLLINE ER (24 HR) 300 MG CAPSULE PO SCH ×2 (09:03→20:25)
[2019-04-05] MEDS: EPINEPHrine 1 MG/ML VIAL SUBCUT SCH ×2 (09:09→20:23)
[2019-04-05] MEDS: INSULIN LISPRO 100 UNIT/ML SUBCUT SCH ×2 (09:10→12:03)
[2019-04-05] MEDS: INSULIN REGULAR 100 UNIT/ML SUBCUT SCH ×4 (09:10→20:19)
[2019-04-05] MEDS: BUDESONIDE/FORMOTEROL 160-4.5 INHALER 6 GM INH SCH ×2 (09:11→20:22)
[2019-04-05] MEDS: FLUCONAZOLE INJ 100 MG in IV BAG 1 EACH IV SCH (12:05)
[2019-04-05] MEDS: ENOXAPARIN 40 MG/0.4 ML SYRINGE SUBCUT SCH (15:53)
[2019-04-05] MEDS: SERTRALINE 50 MG TABLET PO SCH (16:24)
[2019-04-05] MEDS: traZODone 50 MG TABLET PO SCH (20:19)
[2019-04-05] MEDS: DOCUSATE SODIUM 100 MG CAPSULE PO SCH (20:19)
[2019-04-05] MEDS: DONEPEZIL 10 MG TABLET PO SCH (20:20)
[2019-04-05] MEDS: INSULIN GLARGINE 100 UNIT/ML SUBCUT SCH (20:52)
[2019-04-06] MEDS: methylPREDNISolone SOD SUC 40 MG/1 ML VIAL IV SCH ×3 (00:15→15:22)
[2019-04-06] MEDS: ALBUTEROL/IPRATROPIUM 3 ML NEB RESP TX SCH ×7 (00:31→22:58)
[2019-04-06] MEDS: MEROPENEM 500 MG in SODIUM CHLORIDE 0.9% 100 ML IV SCH ×4 (02:16→21:02)
[2019-04-06 04:47] LABS: Basophils # 0.2 10*3/uL (0.0-0.2); Basophils % 0.7 % (0.0-0.8); Hematocrit 37.7 VOL% (42.0-52.0); Hemoglobin 12.1 GM/DL (14.0-18.0); Immature Granulocytes % 6.9 %; Immature Granulocytes Absolute 1.56 #; Lymphocytes # 0.9 10*3/uL (1.4-4.0); Lymphocytes % 4.2 % (21.2-54.2); Mean Corpuscular HGB Conc 32.1 GM/DL (32-36); Mean Corpuscular Volume 89.5 FL (87-102); Mean Platelet Volume 9.4 FL (9.6-12.0); Monocytes % 0.5 % (1.7-12.7); Neutrophils % 87.7 % (38.7-73.9); Platelet Count 392 T/CUMM (130-400); Red Blood Count 4.21 MC/CUMM (3.8-5.5); Red Cell Distribution Width 15.9 % (9.3-17.3); White Blood Count 22.7 T/CUMM (4-12)
[2019-04-06 05:12] LABS: Hypochromasia 1+; Lymphocytes 2 % (20-55); Microcytosis Slight; Platelet Estimate Adequate; Segmented Neutrophils 94 % (50-85); Total Cells Counted 100
[2019-04-06 05:22] LABS: Calcium 8.6 MG/DL (8.5-10.1); Osmolality,Calculated 285.1 MOS/KG (273-304)
[2019-04-06] MEDS: ARFORMOTEROL 15 MCG/2 ML NEB RESP TX SCH ×2 (07:17→19:20)
[2019-04-06] MEDS: INSULIN REGULAR 100 UNIT/ML SUBCUT SCH ×4 (08:20→21:00)
[2019-04-06] MEDS: TAMSULOSIN 0.4 MG CAPSULE PO SCH (08:21)
[2019-04-06] MEDS: FUROSEMIDE 20 MG TABLET PO SCH (08:21)
[2019-04-06] MEDS: ASPIRIN EC 81 MG TABLET PO SCH (08:21)
[2019-04-06] MEDS: PANTOPRAZOLE 40 MG TABLET PO SCH (08:22)
[2019-04-06] MEDS: DILTIAZEM 60 MG TABLET PO SCH ×4 (08:22→21:12)
[2019-04-06] MEDS: POTASSIUM CHLORIDE 10 MEQ TABLET PO SCH ×2 (08:22→21:13)
[2019-04-06] MEDS: DOCUSATE SODIUM 100 MG CAPSULE PO SCH ×2 (08:22→21:12)
[2019-04-06] MEDS: allopurinoL 100 MG TABLET PO SCH (08:22)
[2019-04-06] MEDS: BUDESONIDE/FORMOTEROL 160-4.5 INHALER 6 GM INH SCH ×2 (08:23→22:00)
[2019-04-06] MEDS: EPINEPHrine 1 MG/ML VIAL SUBCUT SCH ×2 (08:47→21:09)
[2019-04-06] MEDS: THEOPHYLLINE ER (24 HR) 300 MG CAPSULE PO SCH (08:47)
[2019-04-06] MEDS: SKIN HEALING OINT (AQUAPHOR) 50 GM TUBE TOP PRN (10:30)
[2019-04-06] MEDS ORDERED: SODIUM PHOSPHATE ENEMA 133 ML BOTTLE RECTAL ONE (10:48)
[2019-04-06] MEDS: traMADol 50 MG TABLET PO PRN (11:50)
[2019-04-06] MEDS: AZITHROMYCIN 250 MG TABLET PO SCH (11:51)
[2019-04-06] MEDS: FLUCONAZOLE INJ 100 MG in IV BAG 1 EACH IV SCH (13:18)
[2019-04-06] MEDS: ENOXAPARIN 40 MG/0.4 ML SYRINGE SUBCUT SCH (15:22)
[2019-04-06] MEDS: SERTRALINE 50 MG TABLET PO SCH (17:47)
[2019-04-06] MEDS: POLYETHYLENE GLYCOL POWDER 17 GM PACK PO SCH (21:00)
[2019-04-06] MEDS: INSULIN GLARGINE 100 UNIT/ML SUBCUT SCH (21:05)
[2019-04-06] MEDS: DONEPEZIL 10 MG TABLET PO SCH (21:12)
[2019-04-06] MEDS: traZODone 50 MG TABLET PO SCH (21:13)
[2019-04-07] MEDS: methylPREDNISolone SOD SUC 40 MG/1 ML VIAL IV SCH ×3 (00:05→16:30)
[2019-04-07] MEDS: THEOPHYLLINE ER (24 HR) 300 MG CAPSULE PO SCH ×3 (00:07→21:00)
[2019-04-07] MEDS: FUROSEMIDE 20 MG TABLET PO SCH ×3 (00:07→21:01)
[2019-04-07] MEDS: ALBUTEROL/IPRATROPIUM 3 ML NEB RESP TX SCH ×6 (02:37→23:36)
[2019-04-07] MEDS: MEROPENEM 500 MG in SODIUM CHLORIDE 0.9% 100 ML IV SCH ×4 (02:48→21:00)
[2019-04-07 06:04] LABS: Calcium 8.7 MG/DL (8.5-10.1); Osmolality,Calculated 280.5 MOS/KG (273-304)
[2019-04-07] MEDS: traMADol 50 MG TABLET PO PRN ×2 (06:34→14:42)
[2019-04-07] MEDS: EPINEPHrine 1 MG/ML VIAL SUBCUT SCH ×2 (06:35→14:40)
[2019-04-07] MEDS: ARFORMOTEROL 15 MCG/2 ML NEB RESP TX SCH ×2 (07:59→20:54)
[2019-04-07] MEDS: POLYETHYLENE GLYCOL POWDER 17 GM PACK PO SCH ×2 (08:57→21:03)
[2019-04-07] MEDS: POTASSIUM CHLORIDE 10 MEQ TABLET PO SCH ×2 (08:58→21:02)
[2019-04-07] MEDS: DOCUSATE SODIUM 100 MG CAPSULE PO SCH ×2 (08:59→21:01)
[2019-04-07] MEDS: TAMSULOSIN 0.4 MG CAPSULE PO SCH (08:59)
[2019-04-07] MEDS: INSULIN REGULAR 100 UNIT/ML SUBCUT SCH ×4 (08:59→21:16)
[2019-04-07] MEDS: allopurinoL 100 MG TABLET PO SCH (09:00)
[2019-04-07] MEDS: PANTOPRAZOLE 40 MG TABLET PO SCH (09:00)
[2019-04-07] MEDS: ASPIRIN EC 81 MG TABLET PO SCH (09:00)
[2019-04-07] MEDS: DILTIAZEM 60 MG TABLET PO SCH ×4 (09:00→21:02)
[2019-04-07] MEDS: BUDESONIDE/FORMOTEROL 160-4.5 INHALER 6 GM INH SCH ×2 (09:01→21:04)
[2019-04-07] MEDS: SODIUM PHOSPHATE ENEMA 133 ML BOTTLE RECTAL PRN (09:58)
[2019-04-07] MEDS: FLUCONAZOLE INJ 100 MG in IV BAG 1 EACH IV SCH (12:40)
[2019-04-07] MEDS: ENOXAPARIN 40 MG/0.4 ML SYRINGE SUBCUT SCH (14:40)
[2019-04-07] MEDS ORDERED: hydrALAZINE 20 MG/1 ML VIAL IV ONE (15:54)
[2019-04-07] MEDS: SERTRALINE 50 MG TABLET PO SCH (16:51)
[2019-04-07] MEDS: LACTULOSE 20 GM/30 ML UDCUP PO SCH (21:00)
[2019-04-07] MEDS: DONEPEZIL 10 MG TABLET PO SCH (21:01)
[2019-04-07] MEDS: traZODone 50 MG TABLET PO SCH (21:01)
[2019-04-07] MEDS: INSULIN GLARGINE 100 UNIT/ML SUBCUT SCH (21:02)
[2019-04-07] MEDS: hydrALAZINE 25 MG TABLET PO SCH (21:18)
[2019-04-08] MEDS: methylPREDNISolone SOD SUC 40 MG/1 ML VIAL IV SCH ×4 (01:02→23:53)
[2019-04-08] MEDS: MEROPENEM 500 MG in SODIUM CHLORIDE 0.9% 100 ML IV SCH ×4 (01:02→20:35)
[2019-04-08] MEDS: ALBUTEROL/IPRATROPIUM 3 ML NEB RESP TX SCH ×6 (02:37→23:37)
[2019-04-08 05:16] LABS: Basophils % 0.1 % (0.0-0.8); Hematocrit 40.6 VOL% (42.0-52.0); Immature Granulocytes % 8.2 %; Immature Granulocytes Absolute 2.46 #; Lymphocytes # 0.4 10*3/uL (1.4-4.0); Lymphocytes % 1.2 % (21.2-54.2); Mean Corpuscular Volume 88.6 FL (87-102); Mean Platelet Volume 9.4 FL (9.6-12.0); Monocytes % 2.7 % (1.7-12.7); Neutrophils % 87.8 % (38.7-73.9); Platelet Count 416 T/CUMM (130-400); Red Blood Count 4.58 MC/CUMM (3.8-5.5); Red Cell Distribution Width 16.3 % (9.3-17.3); White Blood Count 30.2 T/CUMM (4-12)
[2019-04-08 05:36] LABS: Calcium 8.8 MG/DL (8.5-10.1); Osmolality,Calculated 277.2 MOS/KG (273-304)
[2019-04-08 06:00] LABS: Anisocytosis 1+; Lymphocytes 6 % (20-55); Microcytosis 1+; Nucleated Red Blood Cells 1 (0-5); Segmented Neutrophils 91 % (50-85); Total Cells Counted 100
[2019-04-08 06:01] LABS: Platelet Estimate Adequate
[2019-04-08] MEDS: EPINEPHrine 1 MG/ML VIAL SUBCUT SCH ×2 (06:03→14:17)
[2019-04-08] MEDS: ARFORMOTEROL 15 MCG/2 ML NEB RESP TX SCH ×2 (07:30→19:11)
[2019-04-08] MEDS: INSULIN REGULAR 100 UNIT/ML SUBCUT SCH ×4 (09:18→21:44)
[2019-04-08] MEDS: LACTULOSE 20 GM/30 ML UDCUP PO SCH ×2 (09:21→21:39)
[2019-04-08] MEDS: POLYETHYLENE GLYCOL POWDER 17 GM PACK PO SCH ×2 (09:22→21:43)
[2019-04-08] MEDS: hydrALAZINE 25 MG TABLET PO SCH ×2 (09:23→21:40)
[2019-04-08] MEDS: ASPIRIN EC 81 MG TABLET PO SCH (09:23)
[2019-04-08] MEDS: AZITHROMYCIN 250 MG TABLET PO SCH ×2 (09:23→11:56)
[2019-04-08] MEDS: DOCUSATE SODIUM 100 MG CAPSULE PO SCH ×2 (09:23→21:39)
[2019-04-08] MEDS: PANTOPRAZOLE 40 MG TABLET PO SCH (09:23)
[2019-04-08] MEDS: DILTIAZEM 60 MG TABLET PO SCH ×4 (09:23→21:39)
[2019-04-08] MEDS: allopurinoL 100 MG TABLET PO SCH (09:24)
[2019-04-08] MEDS: TAMSULOSIN 0.4 MG CAPSULE PO SCH (09:24)
[2019-04-08] MEDS: FUROSEMIDE 20 MG TABLET PO SCH ×2 (09:24→21:40)
[2019-04-08] MEDS: THEOPHYLLINE ER (24 HR) 300 MG CAPSULE PO SCH ×2 (09:24→21:40)
[2019-04-08] MEDS: BUDESONIDE/FORMOTEROL 160-4.5 INHALER 6 GM INH SCH ×2 (09:24→21:43)
[2019-04-08] MEDS: POTASSIUM CHLORIDE 10 MEQ TABLET PO SCH ×2 (09:24→21:40)
[2019-04-08] MEDS: FLUCONAZOLE INJ 100 MG in IV BAG 1 EACH IV SCH (12:46)
[2019-04-08] MEDS: ENOXAPARIN 40 MG/0.4 ML SYRINGE SUBCUT SCH (14:16)
[2019-04-08] MEDS: SERTRALINE 50 MG TABLET PO SCH (17:24)
[2019-04-08] MEDS: traZODone 50 MG TABLET PO SCH (21:39)
[2019-04-08] MEDS: DONEPEZIL 10 MG TABLET PO SCH (21:40)
[2019-04-08] MEDS: INSULIN GLARGINE 100 UNIT/ML SUBCUT SCH (21:45)
[2019-04-09] MEDS: MEROPENEM 500 MG in SODIUM CHLORIDE 0.9% 100 ML IV SCH ×4 (02:03→21:57)
[2019-04-09] MEDS: ALBUTEROL/IPRATROPIUM 3 ML NEB RESP TX SCH ×6 (03:18→23:22)
[2019-04-09] MEDS: EPINEPHrine 1 MG/ML VIAL SUBCUT SCH ×2 (05:59→15:10)
[2019-04-09 06:13] LABS: Basophils # 0.2 10*3/uL (0.0-0.2); Basophils % 0.6 % (0.0-0.8); Hematocrit 38.1 VOL% (42.0-52.0); Hemoglobin 12.2 GM/DL (14.0-18.0); Immature Granulocytes % 6.7 %; Immature Granulocytes Absolute 1.87 #; Lymphocytes # 0.8 10*3/uL (1.4-4.0); Lymphocytes % 2.7 % (21.2-54.2); Mean Corpuscular Volume 87.2 FL (87-102); Mean Platelet Volume 9.7 FL (9.6-12.0); Monocytes % 1.3 % (1.7-12.7); Neutrophils % 88.7 % (38.7-73.9); Platelet Count 412 T/CUMM (130-400); Red Blood Count 4.37 MC/CUMM (3.8-5.5); Red Cell Distribution Width 16.7 % (9.3-17.3); White Blood Count 27.8 T/CUMM (4-12)
[2019-04-09 06:45] LABS: Band Neutrophils 3 % (0-10); Hypochromasia 1+; Lymphocytes 1 % (20-55); Microcytosis 1+; Segmented Neutrophils 93 % (50-85); Total Cells Counted 100
[2019-04-09 06:46] LABS: Calcium 8.6 MG/DL (8.5-10.1); Osmolality,Calculated 287.8 MOS/KG (273-304); Ovalocytes Slight; Platelet Estimate Increased
[2019-04-09] MEDS: ARFORMOTEROL 15 MCG/2 ML NEB RESP TX SCH ×2 (08:43→19:50)
[2019-04-09] MEDS: methylPREDNISolone SOD SUC 40 MG/1 ML VIAL IV SCH ×3 (08:51→23:45)
[2019-04-09] MEDS: INSULIN REGULAR 100 UNIT/ML SUBCUT SCH ×4 (08:58→22:01)
[2019-04-09] MEDS: POLYETHYLENE GLYCOL POWDER 17 GM PACK PO SCH ×2 (08:58→21:59)
[2019-04-09] MEDS: ASPIRIN EC 81 MG TABLET PO SCH (08:59)
[2019-04-09] MEDS: DOCUSATE SODIUM 100 MG CAPSULE PO SCH ×2 (08:59→21:56)
[2019-04-09] MEDS: LACTULOSE 20 GM/30 ML UDCUP PO SCH ×2 (08:59→21:59)
[2019-04-09] MEDS: PANTOPRAZOLE 40 MG TABLET PO SCH (08:59)
[2019-04-09] MEDS: FUROSEMIDE 20 MG TABLET PO SCH ×2 (08:59→21:56)
[2019-04-09] MEDS: TAMSULOSIN 0.4 MG CAPSULE PO SCH (08:59)
[2019-04-09] MEDS: THEOPHYLLINE ER (24 HR) 300 MG CAPSULE PO SCH ×2 (09:00→22:09)
[2019-04-09] MEDS: DILTIAZEM 60 MG TABLET PO SCH ×4 (09:00→21:56)
[2019-04-09] MEDS: hydrALAZINE 25 MG TABLET PO SCH ×2 (09:00→21:56)
[2019-04-09] MEDS: POTASSIUM CHLORIDE 10 MEQ TABLET PO SCH ×2 (09:00→21:56)
[2019-04-09] MEDS: BUDESONIDE/FORMOTEROL 160-4.5 INHALER 6 GM INH SCH ×2 (09:00→22:09)
[2019-04-09] MEDS: allopurinoL 100 MG TABLET PO SCH (09:00)
[2019-04-09] MEDS: FLUCONAZOLE INJ 100 MG in IV BAG 1 EACH IV SCH (13:25)
[2019-04-09] MEDS: ENOXAPARIN 40 MG/0.4 ML SYRINGE SUBCUT SCH (15:10)
[2019-04-09] MEDS: SERTRALINE 50 MG TABLET PO SCH (16:22)
[2019-04-09] MEDS: INSULIN GLARGINE 100 UNIT/ML SUBCUT SCH (21:54)
[2019-04-09] MEDS: traZODone 50 MG TABLET PO SCH (21:56)
[2019-04-09] MEDS: DONEPEZIL 10 MG TABLET PO SCH (21:57)
[2019-04-10] MEDS: MEROPENEM 500 MG in SODIUM CHLORIDE 0.9% 100 ML IV SCH ×4 (03:07→21:27)
[2019-04-10] MEDS: ALBUTEROL/IPRATROPIUM 3 ML NEB RESP TX SCH ×6 (03:29→23:58)
[2019-04-10] MEDS: EPINEPHrine 1 MG/ML VIAL SUBCUT SCH ×2 (06:08→14:29)
[2019-04-10 06:46] LABS: Calcium 8.9 MG/DL (8.5-10.1); Osmolality,Calculated 281.8 MOS/KG (273-304)
[2019-04-10] MEDS: ARFORMOTEROL 15 MCG/2 ML NEB RESP TX SCH ×2 (08:32→19:21)
[2019-04-10] MEDS: methylPREDNISolone SOD SUC 40 MG/1 ML VIAL IV SCH ×3 (09:10→23:05)
[2019-04-10] MEDS: TAMSULOSIN 0.4 MG CAPSULE PO SCH (09:11)
[2019-04-10] MEDS: PANTOPRAZOLE 40 MG TABLET PO SCH (09:11)
[2019-04-10] MEDS: traMADol 50 MG TABLET PO PRN (09:11)
[2019-04-10] MEDS: allopurinoL 100 MG TABLET PO SCH (09:11)
[2019-04-10] MEDS: hydrALAZINE 25 MG TABLET PO SCH ×2 (09:11→21:28)
[2019-04-10] MEDS: FUROSEMIDE 20 MG TABLET PO SCH ×2 (09:12→21:28)
[2019-04-10] MEDS: DILTIAZEM 60 MG TABLET PO SCH ×4 (09:12→21:28)
[2019-04-10] MEDS: ASPIRIN EC 81 MG TABLET PO SCH (09:12)
[2019-04-10] MEDS: POTASSIUM CHLORIDE 10 MEQ TABLET PO SCH ×2 (09:12→21:27)
[2019-04-10] MEDS: THEOPHYLLINE ER (24 HR) 300 MG CAPSULE PO SCH ×2 (09:12→21:30)
[2019-04-10] MEDS: INSULIN REGULAR 100 UNIT/ML SUBCUT SCH ×4 (09:12→21:29)
[2019-04-10] MEDS: BUDESONIDE/FORMOTEROL 160-4.5 INHALER 6 GM INH SCH ×2 (09:13→21:30)
[2019-04-10] MEDS: DOCUSATE SODIUM 100 MG CAPSULE PO SCH ×2 (09:20→21:28)
[2019-04-10] MEDS: LACTULOSE 20 GM/30 ML UDCUP PO SCH ×2 (09:20→21:28)
[2019-04-10] MEDS: POLYETHYLENE GLYCOL POWDER 17 GM PACK PO SCH ×2 (09:21→21:30)
[2019-04-10] MEDS ORDERED: METOPROLOL TARTRATE 5 MG/5 ML VIAL IV PRN (13:18)
[2019-04-10] MEDS ORDERED: METOPROLOL TARTRATE 5 MG/5 ML VIAL IV ONE (13:30)
[2019-04-10] MEDS ORDERED: DILTIAZEM 60 MG TABLET PO SCH (13:31)
[2019-04-10] MEDS: AZITHROMYCIN 250 MG TABLET PO SCH (14:07)
[2019-04-10] MEDS: ENOXAPARIN 40 MG/0.4 ML SYRINGE SUBCUT SCH (14:29)
[2019-04-10] MEDS: FLUCONAZOLE INJ 100 MG in IV BAG 1 EACH IV SCH (14:30)
[2019-04-10] MEDS: SODIUM PHOSPHATE ENEMA 133 ML BOTTLE RECTAL PRN (17:02)
[2019-04-10] MEDS: SERTRALINE 50 MG TABLET PO SCH (17:02)
[2019-04-10] MEDS: traZODone 50 MG TABLET PO SCH (21:28)
[2019-04-10] MEDS: DONEPEZIL 10 MG TABLET PO SCH (21:28)
[2019-04-10] MEDS: INSULIN GLARGINE 100 UNIT/ML SUBCUT SCH (21:29)
[2019-04-11] MEDS: MEROPENEM 500 MG in SODIUM CHLORIDE 0.9% 100 ML IV SCH ×4 (02:29→21:31)
[2019-04-11] MEDS: ALBUTEROL/IPRATROPIUM 3 ML NEB RESP TX SCH ×6 (03:48→23:18)
[2019-04-11 03:55] LABS: Basophils % 0.1 % (0.0-0.8); Hematocrit 41.8 VOL% (42.0-52.0); Hemoglobin 13.4 GM/DL (14.0-18.0); Immature Granulocytes % 5.2 %; Immature Granulocytes Absolute 1.85 #; Lymphocytes # 0.3 10*3/uL (1.4-4.0); Lymphocytes % 0.8 % (21.2-54.2); Mean Corpuscular HGB Conc 32.1 GM/DL (32-36); Mean Corpuscular Volume 88.6 FL (87-102); Mean Platelet Volume 9.6 FL (9.6-12.0); Monocytes % 2.4 % (1.7-12.7); Neutrophils % 91.5 % (38.7-73.9); Platelet Count 403 T/CUMM (130-400); Red Blood Count 4.72 MC/CUMM (3.8-5.5); Red Cell Distribution Width 17.2 % (9.3-17.3); White Blood Count 35.7 T/CUMM (4-12)
[2019-04-11 03:56] LABS: Calcium 8.4 MG/DL (8.5-10.1); Osmolality,Calculated 283.7 MOS/KG (273-304)
[2019-04-11 04:30] LABS: Lymphocytes 2 % (20-55); Metamyelocytes 1 %; Segmented Neutrophils 94 % (50-85); Total Cells Counted 100
[2019-04-11 04:32] LABS: Platelet Estimate Normal
[2019-04-11] MEDS: EPINEPHrine 1 MG/ML VIAL SUBCUT SCH (06:15)
[2019-04-11] MEDS: ARFORMOTEROL 15 MCG/2 ML NEB RESP TX SCH ×2 (07:08→19:19)
[2019-04-11] MEDS: INSULIN REGULAR 100 UNIT/ML SUBCUT SCH ×4 (08:23→21:34)
[2019-04-11] MEDS: POLYETHYLENE GLYCOL POWDER 17 GM PACK PO SCH ×2 (08:24→21:35)
[2019-04-11] MEDS: methylPREDNISolone SOD SUC 40 MG/1 ML VIAL IV SCH (08:25)
[2019-04-11] MEDS: LACTULOSE 20 GM/30 ML UDCUP PO SCH ×2 (08:25→21:37)
[2019-04-11] MEDS: BISOPROLOL 5 MG TABLET PO SCH (08:25)
[2019-04-11] MEDS: ASPIRIN EC 81 MG TABLET PO SCH (08:25)
[2019-04-11] MEDS: POTASSIUM CHLORIDE 10 MEQ TABLET PO SCH ×2 (08:26→21:36)
[2019-04-11] MEDS: THEOPHYLLINE ER (24 HR) 300 MG CAPSULE PO SCH ×2 (08:26→21:36)
[2019-04-11] MEDS: DILTIAZEM 60 MG TABLET PO SCH (08:26)
[2019-04-11] MEDS: allopurinoL 100 MG TABLET PO SCH (08:27)
[2019-04-11] MEDS: TAMSULOSIN 0.4 MG CAPSULE PO SCH (08:27)
[2019-04-11] MEDS: DOCUSATE SODIUM 100 MG CAPSULE PO SCH ×2 (08:27→21:36)
[2019-04-11] MEDS: FUROSEMIDE 20 MG TABLET PO SCH ×2 (08:27→21:36)
[2019-04-11] MEDS: hydrALAZINE 25 MG TABLET PO SCH ×2 (08:28→21:36)
[2019-04-11] MEDS: PANTOPRAZOLE 40 MG TABLET PO SCH (08:28)
[2019-04-11] MEDS: BUDESONIDE/FORMOTEROL 160-4.5 INHALER 6 GM INH SCH ×2 (09:19→21:44)
[2019-04-11] MEDS: NYSTATIN 500,000 UNIT/5 ML UDCUP SWISH/SWAL SCH ×3 (13:15→21:37)
[2019-04-11] MEDS: DILTIAZEM 90 MG TABLET PO SCH ×3 (13:16→21:36)
[2019-04-11] MEDS: ERGOCALCIFEROL 50,000 UNIT CAPSULE PO SCH (14:32)
[2019-04-11] MEDS: ENOXAPARIN 40 MG/0.4 ML SYRINGE SUBCUT SCH (14:33)
[2019-04-11] MEDS: SKIN HEALING OINT (AQUAPHOR) 50 GM TUBE TOP PRN (15:26)
[2019-04-11] MEDS: traMADol 50 MG TABLET PO PRN (15:30)
[2019-04-11] MEDS: SERTRALINE 50 MG TABLET PO SCH (16:45)
[2019-04-11] MEDS: INSULIN GLARGINE 100 UNIT/ML SUBCUT SCH (21:35)
[2019-04-11] MEDS: traZODone 50 MG TABLET PO SCH (21:36)
[2019-04-11] MEDS: predniSONE 20 MG TABLET PO SCH (21:36)
[2019-04-11] MEDS: DONEPEZIL 10 MG TABLET PO SCH (21:36)
[2019-04-12] MEDS: ALBUTEROL/IPRATROPIUM 3 ML NEB RESP TX SCH ×6 (02:45→23:51)
[2019-04-12] MEDS: MEROPENEM 500 MG in SODIUM CHLORIDE 0.9% 100 ML IV SCH ×4 (02:51→21:13)
[2019-04-12] MEDS: traMADol 50 MG TABLET PO PRN ×3 (03:57→15:06)
[2019-04-12 04:34] LABS: Basophils % 0.1 % (0.0-0.8); Hematocrit 40.2 VOL% (42.0-52.0); Hemoglobin 12.5 GM/DL (14.0-18.0); Immature Granulocytes % 6.2 %; Immature Granulocytes Absolute 1.97 #; Lymphocytes # 0.2 10*3/uL (1.4-4.0); Lymphocytes % 0.7 % (21.2-54.2); Mean Corpuscular HGB Conc 31.1 GM/DL (32-36); Mean Corpuscular Volume 90.7 FL (87-102); Mean Platelet Volume 9.6 FL (9.6-12.0); Monocytes % 4.5 % (1.7-12.7); Neutrophils % 88.5 % (38.7-73.9); Platelet Count 354 T/CUMM (130-400); Red Blood Count 4.43 MC/CUMM (3.8-5.5); Red Cell Distribution Width 17.2 % (9.3-17.3); White Blood Count 31.7 T/CUMM (4-12)
[2019-04-12 04:48] LABS: Calcium 8.6 MG/DL (8.5-10.1); Osmolality,Calculated 281.1 MOS/KG (273-304)
[2019-04-12 05:19] LABS: Band Neutrophils 1 % (0-10); Lymphocytes 1 % (20-55); Platelet Estimate Adequate; Segmented Neutrophils 93 % (50-85); Total Cells Counted 100
[2019-04-12] MEDS: ARFORMOTEROL 15 MCG/2 ML NEB RESP TX SCH ×2 (07:17→18:58)
[2019-04-12] MEDS: INSULIN REGULAR 100 UNIT/ML SUBCUT SCH ×4 (08:56→21:17)
[2019-04-12] MEDS: POLYETHYLENE GLYCOL POWDER 17 GM PACK PO SCH ×2 (08:58→21:17)
[2019-04-12] MEDS: ASPIRIN EC 81 MG TABLET PO SCH (08:58)
[2019-04-12] MEDS: predniSONE 20 MG TABLET PO SCH ×2 (08:58→21:15)
[2019-04-12] MEDS: DILTIAZEM 90 MG TABLET PO SCH (08:58)
[2019-04-12] MEDS: PANTOPRAZOLE 40 MG TABLET PO SCH (08:59)
[2019-04-12] MEDS: TAMSULOSIN 0.4 MG CAPSULE PO SCH (08:59)
[2019-04-12] MEDS: allopurinoL 100 MG TABLET PO SCH (08:59)
[2019-04-12] MEDS: DOCUSATE SODIUM 100 MG CAPSULE PO SCH ×2 (09:00→21:16)
[2019-04-12] MEDS: hydrALAZINE 25 MG TABLET PO SCH ×2 (09:00→21:15)
[2019-04-12] MEDS: THEOPHYLLINE ER (24 HR) 300 MG CAPSULE PO SCH ×2 (09:00→21:14)
[2019-04-12] MEDS: FUROSEMIDE 20 MG TABLET PO SCH ×2 (09:00→21:15)
[2019-04-12] MEDS: POTASSIUM CHLORIDE 10 MEQ TABLET PO SCH ×2 (09:00→21:14)
[2019-04-12] MEDS: BISOPROLOL 5 MG TABLET PO SCH (09:00)
[2019-04-12] MEDS: NYSTATIN 500,000 UNIT/5 ML UDCUP SWISH/SWAL SCH ×4 (09:00→21:15)
[2019-04-12] MEDS: BUDESONIDE/FORMOTEROL 160-4.5 INHALER 6 GM INH SCH ×2 (09:17→21:16)
[2019-04-12] MEDS: LACTULOSE 20 GM/30 ML UDCUP PO SCH ×2 (11:07→21:16)
[2019-04-12] MEDS: DILTIAZEM 60 MG TABLET PO SCH ×3 (12:45→21:16)
[2019-04-12] MEDS: ENOXAPARIN 40 MG/0.4 ML SYRINGE SUBCUT SCH (15:07)
[2019-04-12] MEDS ORDERED: FUROSEMIDE 40 MG TABLET PO SCH (16:00)
[2019-04-12] MEDS: SERTRALINE 50 MG TABLET PO SCH (16:35)
[2019-04-12] MEDS: traZODone 50 MG TABLET PO SCH (21:14)
[2019-04-12] MEDS: DONEPEZIL 10 MG TABLET PO SCH (21:14)
[2019-04-12] MEDS: INSULIN GLARGINE 100 UNIT/ML SUBCUT SCH (21:14)
[2019-04-13] MEDS: traMADol 50 MG TABLET PO PRN ×2 (01:58→18:31)
[2019-04-13] MEDS: MEROPENEM 500 MG in SODIUM CHLORIDE 0.9% 100 ML IV SCH ×4 (01:58→20:29)
[2019-04-13] MEDS: ALBUTEROL/IPRATROPIUM 3 ML NEB RESP TX SCH ×6 (03:40→23:00)
[2019-04-13 05:51] LABS: Basophils % 0.1 % (0.0-0.8); Hematocrit 39.2 VOL% (42.0-52.0); Hemoglobin 12.3 GM/DL (14.0-18.0); Immature Granulocytes % 9.9 %; Lymphocytes # 0.3 10*3/uL (1.4-4.0); Lymphocytes % 1.1 % (21.2-54.2); Mean Corpuscular HGB Conc 31.4 GM/DL (32-36); Mean Corpuscular Volume 90.7 FL (87-102); Mean Platelet Volume 9.9 FL (9.6-12.0); Neutrophils % 84.9 % (38.7-73.9); Platelet Count 307 T/CUMM (130-400); Red Blood Count 4.32 MC/CUMM (3.8-5.5); Red Cell Distribution Width 17.3 % (9.3-17.3); White Blood Count 26.3 T/CUMM (4-12)
[2019-04-13 06:02] LABS: Calcium 8.5 MG/DL (8.5-10.1); Osmolality,Calculated 273.4 MOS/KG (273-304)
[2019-04-13 06:22] LABS: Band Neutrophils 1 % (0-10); Lymphocytes 3 % (20-55); Platelet Estimate Adequate; Segmented Neutrophils 92 % (50-85); Total Cells Counted 100
[2019-04-13 06:23] LABS: Hypochromasia 1+
[2019-04-13] MEDS: ARFORMOTEROL 15 MCG/2 ML NEB RESP TX SCH ×2 (07:30→18:30)
[2019-04-13] MEDS ORDERED: POTASSIUM CHLORIDE 20 MEQ TABLET PO ONE (07:55)
[2019-04-13] MEDS: NYSTATIN 500,000 UNIT/5 ML UDCUP SWISH/SWAL SCH ×4 (09:03→20:29)
[2019-04-13] MEDS: DILTIAZEM 60 MG TABLET PO SCH ×4 (09:04→20:28)
[2019-04-13] MEDS: predniSONE 20 MG TABLET PO SCH ×2 (09:04→20:28)
[2019-04-13] MEDS: ASPIRIN EC 81 MG TABLET PO SCH (09:04)
[2019-04-13] MEDS: BISOPROLOL 5 MG TABLET PO SCH (09:04)
[2019-04-13] MEDS: DOCUSATE SODIUM 100 MG CAPSULE PO SCH ×2 (09:05→20:27)
[2019-04-13] MEDS: TAMSULOSIN 0.4 MG CAPSULE PO SCH (09:05)
[2019-04-13] MEDS: POTASSIUM CHLORIDE 10 MEQ TABLET PO SCH ×2 (09:05→20:30)
[2019-04-13] MEDS: THEOPHYLLINE ER (24 HR) 300 MG CAPSULE PO SCH ×2 (09:05→20:29)
[2019-04-13] MEDS: allopurinoL 100 MG TABLET PO SCH (09:05)
[2019-04-13] MEDS: PANTOPRAZOLE 40 MG TABLET PO SCH (09:06)
[2019-04-13] MEDS: hydrALAZINE 25 MG TABLET PO SCH ×2 (09:06→20:28)
[2019-04-13] MEDS: FUROSEMIDE 20 MG TABLET PO SCH ×2 (09:07→20:27)
[2019-04-13] MEDS: LACTULOSE 20 GM/30 ML UDCUP PO SCH ×2 (09:08→20:29)
[2019-04-13] MEDS: POLYETHYLENE GLYCOL POWDER 17 GM PACK PO SCH ×2 (09:08→20:30)
[2019-04-13] MEDS: INSULIN REGULAR 100 UNIT/ML SUBCUT SCH ×4 (09:09→21:15)
[2019-04-13] MEDS: BUDESONIDE/FORMOTEROL 160-4.5 INHALER 6 GM INH SCH ×2 (09:09→20:48)
[2019-04-13] MEDS: ACETAMINOPHEN 325 MG TABLET PO SCH ×2 (11:28→20:27)
[2019-04-13] MEDS: GABAPENTIN 100 MG CAPSULE PO SCH ×3 (11:28→20:28)
[2019-04-13] MEDS: AZITHROMYCIN 250 MG TABLET PO SCH (12:16)
[2019-04-13] MEDS: ENOXAPARIN 40 MG/0.4 ML SYRINGE SUBCUT SCH (16:01)
[2019-04-13] MEDS: SERTRALINE 50 MG TABLET PO SCH (18:02)
[2019-04-13] MEDS: traZODone 50 MG TABLET PO SCH (20:27)
[2019-04-13] MEDS: DONEPEZIL 10 MG TABLET PO SCH (20:27)
[2019-04-13] MEDS: INSULIN GLARGINE 100 UNIT/ML SUBCUT SCH (21:24)
[2019-04-13] MEDS: CYCLOBENZAPRINE 10 MG TABLET PO PRN (23:00)
[2019-04-14] MEDS: traMADol 50 MG TABLET PO PRN ×4 (00:38→22:03)
[2019-04-14] MEDS: MEROPENEM 500 MG in SODIUM CHLORIDE 0.9% 100 ML IV SCH ×4 (02:50→22:09)
[2019-04-14] MEDS: ALBUTEROL/IPRATROPIUM 3 ML NEB RESP TX SCH ×7 (03:25→23:00)
[2019-04-14 06:35] LABS: Basophils % 0.1 % (0.0-0.8); Hematocrit 37.5 VOL% (42.0-52.0); Hemoglobin 11.8 GM/DL (14.0-18.0); Immature Granulocytes Absolute 2.62 #; Lymphocytes # 0.3 10*3/uL (1.4-4.0); Lymphocytes % 1.4 % (21.2-54.2); Mean Corpuscular HGB Conc 31.5 GM/DL (32-36); Mean Corpuscular Volume 90.4 FL (87-102); Mean Platelet Volume 10.2 FL (9.6-12.0); Monocytes % 4.1 % (1.7-12.7); Neutrophils % 83.4 % (38.7-73.9); Platelet Count 310 T/CUMM (130-400); Red Blood Count 4.15 MC/CUMM (3.8-5.5); Red Cell Distribution Width 17.2 % (9.3-17.3); White Blood Count 23.9 T/CUMM (4-12)
[2019-04-14 06:58] LABS: Hypochromasia 1+; Lymphocytes 4 % (20-55); Platelet Estimate Adequate; Segmented Neutrophils 93 % (50-85); Total Cells Counted 100
[2019-04-14] MEDS: INSULIN REGULAR 100 UNIT/ML SUBCUT SCH ×4 (07:30→22:18)
[2019-04-14] MEDS: ARFORMOTEROL 15 MCG/2 ML NEB RESP TX SCH ×2 (07:34→18:40)
[2019-04-14] MEDS: POLYETHYLENE GLYCOL POWDER 17 GM PACK PO SCH ×3 (07:44→22:14)
[2019-04-14] MEDS: ACETAMINOPHEN 325 MG TABLET PO SCH ×2 (08:23→22:04)
[2019-04-14] MEDS: allopurinoL 100 MG TABLET PO SCH (08:23)
[2019-04-14] MEDS: THEOPHYLLINE ER (24 HR) 300 MG CAPSULE PO SCH ×2 (08:23→22:15)
[2019-04-14] MEDS: BISOPROLOL 5 MG TABLET PO SCH (08:23)
[2019-04-14] MEDS: GABAPENTIN 100 MG CAPSULE PO SCH ×3 (08:23→22:07)
[2019-04-14] MEDS: DILTIAZEM 60 MG TABLET PO SCH ×4 (08:24→22:06)
[2019-04-14] MEDS: FUROSEMIDE 20 MG TABLET PO SCH ×2 (08:24→22:13)
[2019-04-14] MEDS: PANTOPRAZOLE 40 MG TABLET PO SCH (08:24)
[2019-04-14] MEDS: POTASSIUM CHLORIDE 10 MEQ TABLET PO SCH ×2 (08:24→22:06)
[2019-04-14] MEDS: hydrALAZINE 25 MG TABLET PO SCH ×2 (08:24→22:08)
[2019-04-14] MEDS: DOCUSATE SODIUM 100 MG CAPSULE PO SCH ×2 (08:24→22:08)
[2019-04-14] MEDS: ASPIRIN EC 81 MG TABLET PO SCH (08:24)
[2019-04-14] MEDS: TAMSULOSIN 0.4 MG CAPSULE PO SCH (08:24)
[2019-04-14] MEDS: LACTULOSE 20 GM/30 ML UDCUP PO SCH ×2 (08:24→22:09)
[2019-04-14] MEDS: predniSONE 20 MG TABLET PO SCH ×2 (08:24→22:08)
[2019-04-14] MEDS: BUDESONIDE/FORMOTEROL 160-4.5 INHALER 6 GM INH SCH ×2 (08:26→22:19)
[2019-04-14] MEDS: MYLANTA/LIDO VISC/NYST 180 ML BOTTLE SWISH/SWAL SCH ×4 (09:33→22:16)
[2019-04-14] MEDS: ENOXAPARIN 40 MG/0.4 ML SYRINGE SUBCUT SCH (14:33)
[2019-04-14] MEDS: CYCLOBENZAPRINE 10 MG TABLET PO PRN (14:33)
[2019-04-14] MEDS: SERTRALINE 50 MG TABLET PO SCH (17:49)
[2019-04-14] MEDS: DONEPEZIL 10 MG TABLET PO SCH (22:05)
[2019-04-14] MEDS: traZODone 50 MG TABLET PO SCH (22:05)
[2019-04-14] MEDS: DOXYCYCLINE HYCLATE 50 MG CAPSULE PO SCH (22:15)
[2019-04-14] MEDS: INSULIN GLARGINE 100 UNIT/ML SUBCUT SCH (22:16)
[2019-04-14] MEDS: methIMAzole 5 MG TABLET PO SCH (22:31)
[2019-04-15] MEDS: MEROPENEM 500 MG in SODIUM CHLORIDE 0.9% 100 ML IV SCH ×4 (02:52→21:48)
[2019-04-15] MEDS: ALBUTEROL/IPRATROPIUM 3 ML NEB RESP TX SCH ×6 (03:00→23:58)
[2019-04-15] MEDS: traMADol 50 MG TABLET PO PRN ×2 (04:08→18:35)
[2019-04-15 05:53] LABS: Basophils % 0.2 % (0.0-0.8); Hematocrit 37.6 VOL% (42.0-52.0); Hemoglobin 11.6 GM/DL (14.0-18.0); Immature Granulocytes % 10.8 %; Lymphocytes # 0.4 10*3/uL (1.4-4.0); Lymphocytes % 2.3 % (21.2-54.2); Mean Corpuscular HGB Conc 30.9 GM/DL (32-36); Mean Corpuscular Volume 91.9 FL (87-102); Mean Platelet Volume 9.8 FL (9.6-12.0); Monocytes % 4.4 % (1.7-12.7); Neutrophils % 82.3 % (38.7-73.9); Platelet Count 293 T/CUMM (130-400); Red Blood Count 4.09 MC/CUMM (3.8-5.5); Red Cell Distribution Width 17.5 % (9.3-17.3); White Blood Count 18.4 T/CUMM (4-12)
[2019-04-15 06:18] LABS: Band Neutrophils 2 % (0-10); Hypochromasia 1+; Lymphocytes 2 % (20-55); Microcytosis 1+; Myelocytes 1 %; Platelet Estimate Normal; Segmented Neutrophils 91 % (50-85); Total Cells Counted 100
[2019-04-15 06:29] LABS: Calcium 8.6 MG/DL (8.5-10.1); Osmolality,Calculated 282.1 MOS/KG (273-304)
[2019-04-15] MEDS: ARFORMOTEROL 15 MCG/2 ML NEB RESP TX SCH ×2 (07:01→19:13)
[2019-04-15] MEDS: MYLANTA/LIDO VISC/NYST 180 ML BOTTLE SWISH/SWAL SCH ×4 (08:08→21:44)
[2019-04-15] MEDS: POTASSIUM CHLORIDE 10 MEQ TABLET PO SCH ×2 (08:09→21:46)
[2019-04-15] MEDS: predniSONE 20 MG TABLET PO SCH ×2 (08:09→21:47)
[2019-04-15] MEDS: POLYETHYLENE GLYCOL POWDER 17 GM PACK PO SCH ×2 (08:09→22:21)
[2019-04-15] MEDS: LACTULOSE 20 GM/30 ML UDCUP PO SCH ×2 (08:09→21:45)
[2019-04-15] MEDS: ASPIRIN EC 81 MG TABLET PO SCH (08:09)
[2019-04-15] MEDS: GABAPENTIN 100 MG CAPSULE PO SCH ×3 (08:10→21:46)
[2019-04-15] MEDS: DILTIAZEM 60 MG TABLET PO SCH ×4 (08:10→21:47)
[2019-04-15] MEDS: DOCUSATE SODIUM 100 MG CAPSULE PO SCH ×2 (08:10→21:48)
[2019-04-15] MEDS: PANTOPRAZOLE 40 MG TABLET PO SCH (08:10)
[2019-04-15] MEDS: FUROSEMIDE 20 MG TABLET PO SCH ×2 (08:10→21:47)
[2019-04-15] MEDS: TAMSULOSIN 0.4 MG CAPSULE PO SCH (08:10)
[2019-04-15] MEDS: ACETAMINOPHEN 325 MG TABLET PO SCH ×2 (08:11→21:46)
[2019-04-15] MEDS: hydrALAZINE 25 MG TABLET PO SCH (08:11)
[2019-04-15] MEDS: allopurinoL 100 MG TABLET PO SCH (08:11)
[2019-04-15] MEDS: methIMAzole 5 MG TABLET PO SCH ×3 (08:12→18:29)
[2019-04-15] MEDS: BISOPROLOL 5 MG TABLET PO SCH (08:12)
[2019-04-15] MEDS: DOXYCYCLINE HYCLATE 50 MG CAPSULE PO SCH ×2 (08:13→21:46)
[2019-04-15] MEDS: THEOPHYLLINE ER (24 HR) 300 MG CAPSULE PO SCH ×2 (08:13→21:46)
[2019-04-15] MEDS: INSULIN REGULAR 100 UNIT/ML SUBCUT SCH ×4 (08:26→21:49)
[2019-04-15] MEDS: BUDESONIDE/FORMOTEROL 160-4.5 INHALER 6 GM INH SCH ×2 (12:10→23:00)
[2019-04-15] MEDS: AZITHROMYCIN 250 MG TABLET PO SCH (12:11)
[2019-04-15] MEDS ORDERED: MORPHINE 4 MG/1 ML VIAL ONE (15:07)
[2019-04-15] MEDS ORDERED: ALBUTEROL 2.5 MG/3 ML NEB RESP TX ONE (15:20)
[2019-04-15 16:13] LABS: Calcium 8.8 MG/DL (8.5-10.1); Osmolality,Calculated 280.4 MOS/KG (273-304)
[2019-04-15] MEDS: ENOXAPARIN 40 MG/0.4 ML SYRINGE SUBCUT SCH (18:30)
[2019-04-15] MEDS: SERTRALINE 50 MG TABLET PO SCH (18:31)
[2019-04-15] MEDS: DONEPEZIL 10 MG TABLET PO SCH (21:45)
[2019-04-15] MEDS: traZODone 50 MG TABLET PO SCH (21:47)
[2019-04-15] MEDS: INSULIN GLARGINE 100 UNIT/ML SUBCUT SCH (21:49)
[2019-04-16] MEDS: MEROPENEM 500 MG in SODIUM CHLORIDE 0.9% 100 ML IV SCH ×4 (01:20→22:22)
[2019-04-16] MEDS: ALBUTEROL/IPRATROPIUM 3 ML NEB RESP TX SCH ×6 (03:51→22:34)
[2019-04-16 05:51] LABS: Basophils # 0.1 10*3/uL (0.0-0.2); Basophils % 0.8 % (0.0-0.8); Hematocrit 35.5 VOL% (42.0-52.0); Hemoglobin 11.1 GM/DL (14.0-18.0); Immature Granulocytes % 10.1 %; Immature Granulocytes Absolute 1.88 #; Lymphocytes # 0.6 10*3/uL (1.4-4.0); Mean Corpuscular HGB Conc 31.3 GM/DL (32-36); Mean Corpuscular Volume 91.7 FL (87-102); Mean Platelet Volume 9.9 FL (9.6-12.0); Monocytes % 5.4 % (1.7-12.7); Neutrophils % 80.7 % (38.7-73.9); Platelet Count 292 T/CUMM (130-400); Red Blood Count 3.87 MC/CUMM (3.8-5.5); Red Cell Distribution Width 17.7 % (9.3-17.3); White Blood Count 18.6 T/CUMM (4-12)
[2019-04-16 06:22] LABS: Calcium 8.5 MG/DL (8.5-10.1); Osmolality,Calculated 278.7 MOS/KG (273-304)
[2019-04-16 06:23] LABS: Hypochromasia 1+; Lymphocytes 3 % (20-55); Segmented Neutrophils 93 % (50-85); Total Cells Counted 100
[2019-04-16 06:24] LABS: Microcytosis 1+; Platelet Estimate Normal
[2019-04-16] MEDS: ARFORMOTEROL 15 MCG/2 ML NEB RESP TX SCH ×2 (07:21→18:54)
[2019-04-16] MEDS: ACETAMINOPHEN 325 MG TABLET PO SCH ×2 (08:52→21:58)
[2019-04-16] MEDS: POTASSIUM CHLORIDE 10 MEQ TABLET PO SCH ×2 (08:52→21:57)
[2019-04-16] MEDS: GABAPENTIN 100 MG CAPSULE PO SCH ×3 (08:52→21:58)
[2019-04-16] MEDS: FUROSEMIDE 20 MG TABLET PO SCH ×2 (08:52→21:57)
[2019-04-16] MEDS: DILTIAZEM 60 MG TABLET PO SCH ×4 (08:52→21:58)
[2019-04-16] MEDS: ASPIRIN EC 81 MG TABLET PO SCH (08:52)
[2019-04-16] MEDS: BISOPROLOL 5 MG TABLET PO SCH (08:53)
[2019-04-16] MEDS: TAMSULOSIN 0.4 MG CAPSULE PO SCH (08:53)
[2019-04-16] MEDS: THEOPHYLLINE ER (24 HR) 300 MG CAPSULE PO SCH ×2 (08:54→21:58)
[2019-04-16] MEDS: DOXYCYCLINE HYCLATE 50 MG CAPSULE PO SCH ×2 (08:54→21:58)
[2019-04-16] MEDS: methIMAzole 5 MG TABLET PO SCH (08:54)
[2019-04-16] MEDS: DOCUSATE SODIUM 100 MG CAPSULE PO SCH ×2 (08:54→21:56)
[2019-04-16] MEDS: predniSONE 20 MG TABLET PO SCH (08:54)
[2019-04-16] MEDS: traMADol 50 MG TABLET PO PRN (08:54)
[2019-04-16] MEDS: PANTOPRAZOLE 40 MG TABLET PO SCH (08:54)
[2019-04-16] MEDS: MYLANTA/LIDO VISC/NYST 180 ML BOTTLE SWISH/SWAL SCH ×4 (08:55→21:58)
[2019-04-16] MEDS: POLYETHYLENE GLYCOL POWDER 17 GM PACK PO SCH ×2 (08:55→22:01)
[2019-04-16] MEDS: allopurinoL 100 MG TABLET PO SCH (09:05)
[2019-04-16] MEDS: LACTULOSE 20 GM/30 ML UDCUP PO SCH ×2 (09:06→21:59)
[2019-04-16] MEDS: BUDESONIDE/FORMOTEROL 160-4.5 INHALER 6 GM INH SCH ×2 (09:15→22:01)
[2019-04-16] MEDS: INSULIN REGULAR 100 UNIT/ML SUBCUT SCH ×4 (10:16→22:00)
[2019-04-16] MEDS: methylPREDNISolone SOD SUC 40 MG/1 ML VIAL IV SCH (10:25)
[2019-04-16] MEDS: MONTELUKAST 10 MG TABLET PO SCH ×2 (10:25→21:58)
[2019-04-16] MEDS: CYCLOBENZAPRINE 10 MG TABLET PO PRN (10:30)
[2019-04-16] MEDS: DORNASE ALFA 2.5 MG/2.5 ML VIAL RESP TX SCH ×2 (10:56→19:04)
[2019-04-16] MEDS: LORazepam 2 MG/1 ML VIAL IV PRN (14:19)
[2019-04-16] MEDS: ENOXAPARIN 40 MG/0.4 ML SYRINGE SUBCUT SCH (16:22)
[2019-04-16] MEDS: SERTRALINE 50 MG TABLET PO SCH (16:22)
[2019-04-16] MEDS: NYSTATIN CREAM 15 GM TUBE TOP SCH ×2 (16:24→22:01)
[2019-04-16] MEDS: traZODone 50 MG TABLET PO SCH (21:57)
[2019-04-16] MEDS: INSULIN GLARGINE 100 UNIT/ML SUBCUT SCH (22:01)
[2019-04-16] MEDS: DONEPEZIL 10 MG TABLET PO SCH (22:08)
[2019-04-17] MEDS: MEROPENEM 500 MG in SODIUM CHLORIDE 0.9% 100 ML IV SCH ×4 (02:25→22:29)
[2019-04-17] MEDS: ALBUTEROL/IPRATROPIUM 3 ML NEB RESP TX SCH ×6 (02:39→23:22)
[2019-04-17 05:13] LABS: Basophils # 0.1 10*3/uL (0.0-0.2); Basophils % 0.6 % (0.0-0.8); Hematocrit 33.7 VOL% (42.0-52.0); Hemoglobin 10.5 GM/DL (14.0-18.0); Immature Granulocytes % 9.5 %; Immature Granulocytes Absolute 1.62 #; Lymphocytes # 0.8 10*3/uL (1.4-4.0); Lymphocytes % 4.6 % (21.2-54.2); Mean Corpuscular HGB Conc 31.2 GM/DL (32-36); Mean Corpuscular Volume 91.3 FL (87-102); Mean Platelet Volume 9.7 FL (9.6-12.0); Monocytes % 6.2 % (1.7-12.7); Neutrophils % 79.1 % (38.7-73.9); Platelet Count 275 T/CUMM (130-400); Red Blood Count 3.69 MC/CUMM (3.8-5.5); Red Cell Distribution Width 17.6 % (9.3-17.3)
[2019-04-17 05:41] LABS: Calcium 8.7 MG/DL (8.5-10.1); Osmolality,Calculated 283.5 MOS/KG (273-304)
[2019-04-17 05:42] LABS: Band Neutrophils 3 % (0-10); Hypochromasia 1+; Lymphocytes 11 % (20-55); Segmented Neutrophils 81 % (50-85); Total Cells Counted 100
[2019-04-17 05:43] LABS: Microcytosis 1+
[2019-04-17] MEDS: ARFORMOTEROL 15 MCG/2 ML NEB RESP TX SCH ×2 (06:50→19:50)
[2019-04-17] MEDS: DORNASE ALFA 2.5 MG/2.5 ML VIAL RESP TX SCH ×2 (07:05→20:03)
[2019-04-17] MEDS: INSULIN REGULAR 100 UNIT/ML SUBCUT SCH ×4 (07:45→23:01)
[2019-04-17] MEDS ORDERED: INSULIN GLARGINE 100 UNIT/ML SUBCUT SCH (07:55)
[2019-04-17] MEDS: MYLANTA/LIDO VISC/NYST 180 ML BOTTLE SWISH/SWAL SCH ×4 (10:01→21:39)
[2019-04-17] MEDS: POLYETHYLENE GLYCOL POWDER 17 GM PACK PO SCH ×2 (10:01→21:39)
[2019-04-17] MEDS: POTASSIUM CHLORIDE 10 MEQ TABLET PO SCH ×2 (10:02→21:36)
[2019-04-17] MEDS: LACTULOSE 20 GM/30 ML UDCUP PO SCH ×2 (10:02→21:38)
[2019-04-17] MEDS: DOXYCYCLINE HYCLATE 50 MG CAPSULE PO SCH ×2 (10:02→21:35)
[2019-04-17] MEDS: MONTELUKAST 10 MG TABLET PO SCH ×2 (10:03→21:37)
[2019-04-17] MEDS: DILTIAZEM 60 MG TABLET PO SCH ×4 (10:03→21:36)
[2019-04-17] MEDS: PANTOPRAZOLE 40 MG TABLET PO SCH (10:04)
[2019-04-17] MEDS: THEOPHYLLINE ER (24 HR) 300 MG CAPSULE PO SCH ×2 (10:04→21:35)
[2019-04-17] MEDS: DOCUSATE SODIUM 100 MG CAPSULE PO SCH ×2 (10:04→21:37)
[2019-04-17] MEDS: FUROSEMIDE 20 MG TABLET PO SCH ×2 (10:04→21:36)
[2019-04-17] MEDS: allopurinoL 100 MG TABLET PO SCH (10:05)
[2019-04-17] MEDS: ASPIRIN EC 81 MG TABLET PO SCH (10:05)
[2019-04-17] MEDS: ACETAMINOPHEN 325 MG TABLET PO SCH ×2 (10:05→21:37)
[2019-04-17] MEDS: GABAPENTIN 100 MG CAPSULE PO SCH ×3 (10:05→21:37)
[2019-04-17] MEDS: BISOPROLOL 5 MG TABLET PO SCH (10:05)
[2019-04-17] MEDS: TAMSULOSIN 0.4 MG CAPSULE PO SCH (10:06)
[2019-04-17] MEDS: methylPREDNISolone SOD SUC 40 MG/1 ML VIAL IV SCH (10:06)
[2019-04-17] MEDS: NYSTATIN CREAM 15 GM TUBE TOP SCH ×2 (10:07→21:40)
[2019-04-17] MEDS: traMADol 50 MG TABLET PO PRN ×2 (10:47→17:42)
[2019-04-17] MEDS: AZITHROMYCIN 250 MG TABLET PO SCH (12:10)
[2019-04-17] MEDS: BUDESONIDE/FORMOTEROL 160-4.5 INHALER 6 GM INH SCH ×2 (12:10→21:40)
[2019-04-17] MEDS: SERTRALINE 50 MG TABLET PO SCH (16:13)
[2019-04-17] MEDS: ENOXAPARIN 40 MG/0.4 ML SYRINGE SUBCUT SCH (16:14)
[2019-04-17] MEDS: traZODone 50 MG TABLET PO SCH (21:35)
[2019-04-17] MEDS: DONEPEZIL 10 MG TABLET PO SCH (21:38)
[2019-04-18] MEDS: ALBUTEROL/IPRATROPIUM 3 ML NEB RESP TX SCH ×6 (03:44→23:30)
[2019-04-18] MEDS: MEROPENEM 500 MG in SODIUM CHLORIDE 0.9% 100 ML IV SCH ×3 (06:09→17:33)
[2019-04-18] MEDS: ARFORMOTEROL 15 MCG/2 ML NEB RESP TX SCH ×2 (07:09→19:16)
[2019-04-18] MEDS: DORNASE ALFA 2.5 MG/2.5 ML VIAL RESP TX SCH ×2 (07:53→19:16)
[2019-04-18] MEDS: DILTIAZEM 60 MG TABLET PO SCH ×4 (08:51→22:19)
[2019-04-18] MEDS: DOCUSATE SODIUM 100 MG CAPSULE PO SCH ×2 (08:51→22:17)
[2019-04-18] MEDS: GABAPENTIN 100 MG CAPSULE PO SCH ×3 (08:51→22:21)
[2019-04-18] MEDS: POLYETHYLENE GLYCOL POWDER 17 GM PACK PO SCH ×2 (08:51→22:17)
[2019-04-18] MEDS: BISOPROLOL 5 MG TABLET PO SCH (08:51)
[2019-04-18] MEDS: methylPREDNISolone SOD SUC 40 MG/1 ML VIAL IV SCH (08:51)
[2019-04-18] MEDS: FUROSEMIDE 20 MG TABLET PO SCH ×2 (08:51→22:18)
[2019-04-18] MEDS: DOXYCYCLINE HYCLATE 50 MG CAPSULE PO SCH ×2 (08:52→22:17)
[2019-04-18] MEDS: ASPIRIN EC 81 MG TABLET PO SCH (08:52)
[2019-04-18] MEDS: LACTULOSE 20 GM/30 ML UDCUP PO SCH ×2 (08:52→22:21)
[2019-04-18] MEDS: INSULIN REGULAR 100 UNIT/ML SUBCUT SCH ×4 (08:52→22:30)
[2019-04-18] MEDS: TAMSULOSIN 0.4 MG CAPSULE PO SCH (08:52)
[2019-04-18] MEDS: allopurinoL 100 MG TABLET PO SCH (08:52)
[2019-04-18] MEDS: THEOPHYLLINE ER (24 HR) 300 MG CAPSULE PO SCH ×2 (08:52→22:17)
[2019-04-18] MEDS: PANTOPRAZOLE 40 MG TABLET PO SCH (08:53)
[2019-04-18] MEDS: MYLANTA/LIDO VISC/NYST 180 ML BOTTLE SWISH/SWAL SCH ×4 (08:53→22:20)
[2019-04-18] MEDS: POTASSIUM CHLORIDE 10 MEQ TABLET PO SCH ×2 (08:53→22:20)
[2019-04-18] MEDS: MONTELUKAST 10 MG TABLET PO SCH ×2 (08:53→22:18)
[2019-04-18] MEDS: ACETAMINOPHEN 325 MG TABLET PO SCH ×2 (08:53→22:30)
[2019-04-18] MEDS: BUDESONIDE/FORMOTEROL 160-4.5 INHALER 6 GM INH SCH ×2 (09:01→22:22)
[2019-04-18] MEDS: NYSTATIN CREAM 15 GM TUBE TOP SCH ×2 (09:02→22:21)
[2019-04-18] MEDS: traMADol 50 MG TABLET PO PRN (13:10)
[2019-04-18] MEDS: ERGOCALCIFEROL 50,000 UNIT CAPSULE PO SCH (14:28)
[2019-04-18] MEDS: ENOXAPARIN 40 MG/0.4 ML SYRINGE SUBCUT SCH (14:29)
[2019-04-18] MEDS: SERTRALINE 50 MG TABLET PO SCH (16:34)
[2019-04-18] MEDS: SODIUM PHOSPHATE ENEMA 133 ML BOTTLE RECTAL PRN (17:58)
[2019-04-18] MEDS: LORazepam 2 MG/1 ML VIAL IV PRN (17:58)
[2019-04-18] MEDS: traZODone 50 MG TABLET PO SCH (22:18)
[2019-04-18] MEDS: DONEPEZIL 10 MG TABLET PO SCH (22:18)
[2019-04-19] MEDS: MEROPENEM 500 MG in SODIUM CHLORIDE 0.9% 100 ML IV SCH ×2 (00:07→06:23)
[2019-04-19] MEDS: traMADol 50 MG TABLET PO PRN ×3 (01:34→16:43)
[2019-04-19] MEDS: ALBUTEROL/IPRATROPIUM 3 ML NEB RESP TX SCH ×6 (03:35→22:20)
[2019-04-19 05:05] LABS: Basophils # 0.1 10*3/uL (0.0-0.2); Basophils % 0.5 % (0.0-0.8); Hematocrit 29.5 VOL% (42.0-52.0); Hemoglobin 9.4 GM/DL (14.0-18.0); Immature Granulocytes Absolute 1.04 #; Lymphocytes # 0.5 10*3/uL (1.4-4.0); Mean Corpuscular HGB Conc 31.9 GM/DL (32-36); Mean Corpuscular Volume 90.5 FL (87-102); Mean Platelet Volume 9.7 FL (9.6-12.0); Monocytes % 6.4 % (1.7-12.7); Neutrophils % 81.1 % (38.7-73.9); Platelet Count 259 T/CUMM (130-400); Red Blood Count 3.26 MC/CUMM (3.8-5.5); Red Cell Distribution Width 17.4 % (9.3-17.3)
[2019-04-19 05:34] LABS: Calcium 8.1 MG/DL (8.5-10.1); Osmolality,Calculated 282.7 MOS/KG (273-304)
[2019-04-19 06:03] LABS: Anisocytosis 1+; Band Neutrophils 5 % (0-10); Hypochromasia 1+; Lymphocytes 4 % (20-55); Segmented Neutrophils 84 % (50-85); Total Cells Counted 100
[2019-04-19 06:04] LABS: Platelet Estimate Normal
[2019-04-19] MEDS: DORNASE ALFA 2.5 MG/2.5 ML VIAL RESP TX SCH ×2 (07:36→20:05)
[2019-04-19] MEDS: ARFORMOTEROL 15 MCG/2 ML NEB RESP TX SCH ×2 (07:36→20:04)
[2019-04-19] MEDS: INSULIN REGULAR 100 UNIT/ML SUBCUT SCH ×4 (08:44→21:14)
[2019-04-19] MEDS: POLYETHYLENE GLYCOL POWDER 17 GM PACK PO SCH ×2 (08:46→21:15)
[2019-04-19] MEDS: GABAPENTIN 100 MG CAPSULE PO SCH ×3 (08:47→21:12)
[2019-04-19] MEDS: allopurinoL 100 MG TABLET PO SCH (08:47)
[2019-04-19] MEDS: FUROSEMIDE 20 MG TABLET PO SCH ×2 (08:47→21:13)
[2019-04-19] MEDS: ACETAMINOPHEN 325 MG TABLET PO SCH ×2 (08:48→21:13)
[2019-04-19] MEDS: DOXYCYCLINE HYCLATE 50 MG CAPSULE PO SCH ×2 (08:48→21:13)
[2019-04-19] MEDS: THEOPHYLLINE ER (24 HR) 300 MG CAPSULE PO SCH ×2 (08:48→21:13)
[2019-04-19] MEDS: PANTOPRAZOLE 40 MG TABLET PO SCH (08:49)
[2019-04-19] MEDS: BISOPROLOL 5 MG TABLET PO SCH (08:49)
[2019-04-19] MEDS: ASPIRIN EC 81 MG TABLET PO SCH (08:49)
[2019-04-19] MEDS: POTASSIUM CHLORIDE 10 MEQ TABLET PO SCH ×2 (08:49→21:12)
[2019-04-19] MEDS: TAMSULOSIN 0.4 MG CAPSULE PO SCH (08:50)
[2019-04-19] MEDS: DILTIAZEM 60 MG TABLET PO SCH ×4 (08:50→21:11)
[2019-04-19] MEDS: MYLANTA/LIDO VISC/NYST 180 ML BOTTLE SWISH/SWAL SCH ×4 (08:51→21:14)
[2019-04-19] MEDS: DOCUSATE SODIUM 100 MG CAPSULE PO SCH ×2 (08:51→21:13)
[2019-04-19] MEDS: MONTELUKAST 10 MG TABLET PO SCH ×2 (08:51→21:13)
[2019-04-19] MEDS: methylPREDNISolone SOD SUC 40 MG/1 ML VIAL IV SCH (08:53)
[2019-04-19] MEDS: LACTULOSE 20 GM/30 ML UDCUP PO SCH ×2 (09:01→21:14)
[2019-04-19] MEDS: NYSTATIN CREAM 15 GM TUBE TOP SCH ×2 (09:01→21:15)
[2019-04-19] MEDS: BUDESONIDE/FORMOTEROL 160-4.5 INHALER 6 GM INH SCH (09:03)
[2019-04-19] MEDS: BUDESONIDE 0.5 MG/2 ML NEB RESP TX SCH ×2 (11:28→20:05)
[2019-04-19] MEDS: methylPREDNISolone SOD SUC 125 MG/2 ML VIAL IV SCH ×2 (13:34→21:26)
[2019-04-19] MEDS: ENOXAPARIN 40 MG/0.4 ML SYRINGE SUBCUT SCH (15:26)
[2019-04-19] MEDS: SERTRALINE 50 MG TABLET PO SCH (16:43)
[2019-04-19] MEDS: LORazepam 2 MG/1 ML VIAL IV PRN (16:50)
[2019-04-19] MEDS: traZODone 50 MG TABLET PO SCH (21:12)
[2019-04-19] MEDS: CYCLOBENZAPRINE 10 MG TABLET PO PRN (21:12)
[2019-04-19] MEDS: DONEPEZIL 10 MG TABLET PO SCH (21:13)
[2019-04-20] MEDS: ALBUTEROL/IPRATROPIUM 3 ML NEB RESP TX SCH ×6 (03:10→23:23)
[2019-04-20] MEDS: methylPREDNISolone SOD SUC 125 MG/2 ML VIAL IV SCH ×3 (03:13→21:33)
[2019-04-20 06:01] LABS: Basophils # 0.1 10*3/uL (0.0-0.2); Basophils % 0.4 % (0.0-0.8); Hematocrit 31.3 VOL% (42.0-52.0); Hemoglobin 10.2 GM/DL (14.0-18.0); Immature Granulocytes % 7.2 %; Immature Granulocytes Absolute 0.99 #; Lymphocytes # 0.3 10*3/uL (1.4-4.0); Lymphocytes % 2.5 % (21.2-54.2); Mean Corpuscular HGB Conc 32.6 GM/DL (32-36); Mean Corpuscular Volume 87.9 FL (87-102); Mean Platelet Volume 9.8 FL (9.6-12.0); Monocytes % 1.5 % (1.7-12.7); Neutrophils % 88.4 % (38.7-73.9); Platelet Count 253 T/CUMM (130-400); Red Blood Count 3.56 MC/CUMM (3.8-5.5); Red Cell Distribution Width 17.5 % (9.3-17.3); White Blood Count 13.8 T/CUMM (4-12)
[2019-04-20 06:24] LABS: Lymphocytes 4 % (20-55); Segmented Neutrophils 96 % (50-85); Total Cells Counted 100
[2019-04-20 06:25] LABS: Hypochromasia 1+; Microcytosis 1+; Platelet Estimate Adequate
[2019-04-20 06:35] LABS: Calcium 8.6 MG/DL (8.5-10.1); Osmolality,Calculated 277.5 MOS/KG (273-304)
[2019-04-20] MEDS: ARFORMOTEROL 15 MCG/2 ML NEB RESP TX SCH ×2 (07:41→18:58)
[2019-04-20] MEDS: BUDESONIDE 0.5 MG/2 ML NEB RESP TX SCH ×2 (07:41→18:59)
[2019-04-20] MEDS: DORNASE ALFA 2.5 MG/2.5 ML VIAL RESP TX SCH ×2 (07:54→18:59)
[2019-04-20] MEDS: INSULIN REGULAR 100 UNIT/ML SUBCUT SCH ×4 (09:07→21:28)
[2019-04-20] MEDS: POTASSIUM CHLORIDE 10 MEQ TABLET PO SCH ×2 (09:10→21:30)
[2019-04-20] MEDS: DILTIAZEM 60 MG TABLET PO SCH ×4 (09:10→21:31)
[2019-04-20] MEDS: FUROSEMIDE 20 MG TABLET PO SCH ×2 (09:10→21:30)
[2019-04-20] MEDS: BISOPROLOL 5 MG TABLET PO SCH (09:10)
[2019-04-20] MEDS: ASPIRIN EC 81 MG TABLET PO SCH (09:11)
[2019-04-20] MEDS: ACETAMINOPHEN 325 MG TABLET PO SCH ×2 (09:12→21:32)
[2019-04-20] MEDS: GABAPENTIN 100 MG CAPSULE PO SCH ×3 (09:13→21:32)
[2019-04-20] MEDS: DOCUSATE SODIUM 100 MG CAPSULE PO SCH ×2 (09:13→21:32)
[2019-04-20] MEDS: PANTOPRAZOLE 40 MG TABLET PO SCH (09:13)
[2019-04-20] MEDS: MONTELUKAST 10 MG TABLET PO SCH ×2 (09:13→21:29)
[2019-04-20] MEDS: TAMSULOSIN 0.4 MG CAPSULE PO SCH (09:13)
[2019-04-20] MEDS: allopurinoL 100 MG TABLET PO SCH (09:13)
[2019-04-20] MEDS: DOXYCYCLINE HYCLATE 50 MG CAPSULE PO SCH ×2 (09:14→21:43)
[2019-04-20] MEDS: THEOPHYLLINE ER (24 HR) 300 MG CAPSULE PO SCH ×2 (09:16→21:29)
[2019-04-20] MEDS: MYLANTA/LIDO VISC/NYST 180 ML BOTTLE SWISH/SWAL SCH ×4 (09:17→21:32)
[2019-04-20] MEDS: LACTULOSE 20 GM/30 ML UDCUP PO SCH ×2 (09:17→21:33)
[2019-04-20] MEDS: POLYETHYLENE GLYCOL POWDER 17 GM PACK PO SCH ×2 (09:18→21:37)
[2019-04-20] MEDS: NYSTATIN CREAM 15 GM TUBE TOP SCH ×2 (09:18→21:37)
[2019-04-20] MEDS ORDERED: TISSUE ADHESIVE 1 EACH APPLICATOR TOP ONE (10:44)
[2019-04-20] MEDS ORDERED: DEXAMETHASONE 10 MG/1 ML VIAL ONE (10:44)
[2019-04-20] MEDS ORDERED: DEXAMETHASONE 4 MG/1 ML VIAL ONE (10:45)
[2019-04-20] MEDS ORDERED: LIDOCAINE 1% 20 ML VIAL ONE (10:45)
[2019-04-20] MEDS ORDERED: LACTATED RINGERS 1,000 ML IV SCH (11:30)
[2019-04-20] MEDS ORDERED: MIDAZOLAM 2 MG/2 ML VIAL ONE (11:53)
[2019-04-20] MEDS ORDERED: KETAMINE 500 MG/10 ML VIAL ONE (11:53)
[2019-04-20] MEDS: AZITHROMYCIN 250 MG TABLET PO SCH (13:11)
[2019-04-20] MEDS: SERTRALINE 50 MG TABLET PO SCH (15:59)
[2019-04-20] MEDS: CYCLOBENZAPRINE 10 MG TABLET PO PRN (18:04)
[2019-04-20] MEDS: traZODone 50 MG TABLET PO SCH (21:30)
[2019-04-20] MEDS: DONEPEZIL 10 MG TABLET PO SCH (21:30)
[2019-04-21] MEDS: INSULIN REGULAR 100 UNIT/ML SUBCUT SCH ×5 (01:08→21:18)
[2019-04-21] MEDS: ALBUTEROL/IPRATROPIUM 3 ML NEB RESP TX SCH ×5 (03:45→23:53)
[2019-04-21] MEDS: methylPREDNISolone SOD SUC 125 MG/2 ML VIAL IV SCH ×3 (04:04→21:15)
[2019-04-21 06:24] LABS: Basophils % 0.2 % (0.0-0.8); Hemoglobin 10.4 GM/DL (14.0-18.0); Immature Granulocytes % 3.8 %; Immature Granulocytes Absolute 0.67 #; Lymphocytes # 0.6 10*3/uL (1.4-4.0); Lymphocytes % 3.1 % (21.2-54.2); Mean Corpuscular HGB Conc 32.5 GM/DL (32-36); Mean Corpuscular Volume 88.2 FL (87-102); Mean Platelet Volume 9.7 FL (9.6-12.0); Monocytes % 0.9 % (1.7-12.7); Platelet Count 257 T/CUMM (130-400); Red Blood Count 3.63 MC/CUMM (3.8-5.5); Red Cell Distribution Width 17.8 % (9.3-17.3); White Blood Count 17.5 T/CUMM (4-12)
[2019-04-21 06:41] LABS: Calcium 8.8 MG/DL (8.5-10.1); Osmolality,Calculated 285.7 MOS/KG (273-304)
[2019-04-21 06:52] LABS: Band Neutrophils 4 % (0-10); Lymphocytes 3 % (20-55); Segmented Neutrophils 92 % (50-85); Total Cells Counted 100
[2019-04-21 06:53] LABS: Hypochromasia 1+; Microcytosis 1+; Platelet Estimate Normal
[2019-04-21] MEDS: BUDESONIDE 0.5 MG/2 ML NEB RESP TX SCH ×2 (07:18→19:13)
[2019-04-21] MEDS: ARFORMOTEROL 15 MCG/2 ML NEB RESP TX SCH ×2 (07:28→19:13)
[2019-04-21] MEDS: DORNASE ALFA 2.5 MG/2.5 ML VIAL RESP TX SCH ×2 (07:33→19:13)
[2019-04-21] MEDS: DOCUSATE SODIUM 100 MG CAPSULE PO SCH ×2 (08:42→21:25)
[2019-04-21] MEDS: POTASSIUM CHLORIDE 10 MEQ TABLET PO SCH ×2 (08:42→21:22)
[2019-04-21] MEDS: LACTULOSE 20 GM/30 ML UDCUP PO SCH ×2 (08:42→21:21)
[2019-04-21] MEDS: DILTIAZEM 60 MG TABLET PO SCH ×4 (08:43→21:24)
[2019-04-21] MEDS: GABAPENTIN 100 MG CAPSULE PO SCH ×3 (08:43→21:26)
[2019-04-21] MEDS: THEOPHYLLINE ER (24 HR) 300 MG CAPSULE PO SCH ×2 (08:43→21:25)
[2019-04-21] MEDS: BISOPROLOL 5 MG TABLET PO SCH (08:43)
[2019-04-21] MEDS: TAMSULOSIN 0.4 MG CAPSULE PO SCH (08:43)
[2019-04-21] MEDS: FUROSEMIDE 20 MG TABLET PO SCH ×2 (08:43→21:26)
[2019-04-21] MEDS: PANTOPRAZOLE 40 MG TABLET PO SCH (08:43)
[2019-04-21] MEDS: ACETAMINOPHEN 325 MG TABLET PO SCH ×2 (08:44→21:21)
[2019-04-21] MEDS: allopurinoL 100 MG TABLET PO SCH (08:44)
[2019-04-21] MEDS: ASPIRIN EC 81 MG TABLET PO SCH (08:44)
[2019-04-21] MEDS: MONTELUKAST 10 MG TABLET PO SCH ×2 (08:44→21:32)
[2019-04-21] MEDS: POLYETHYLENE GLYCOL POWDER 17 GM PACK PO SCH ×2 (08:44→21:28)
[2019-04-21] MEDS: MYLANTA/LIDO VISC/NYST 180 ML BOTTLE SWISH/SWAL SCH ×4 (08:45→21:33)
[2019-04-21] MEDS: NYSTATIN CREAM 15 GM TUBE TOP SCH ×2 (08:46→21:48)
[2019-04-21] MEDS: DOXYCYCLINE HYCLATE 50 MG CAPSULE PO SCH ×2 (12:02→21:26)
[2019-04-21] MEDS: ALBUMIN 25% 25 GM in PREMIX 1 EACH IV SCH ×2 (16:10→23:20)
[2019-04-21] MEDS: metFORMIN 500 MG TABLET PO SCH (16:15)
[2019-04-21] MEDS: metOLazone 5 MG TABLET PO SCH (16:15)
[2019-04-21] MEDS: SPIRONOLACTONE 25 MG TABLET PO SCH ×2 (16:16→21:25)
[2019-04-21] MEDS: glipiZIDE 5 MG TABLET PO SCH (16:16)
[2019-04-21] MEDS: SERTRALINE 50 MG TABLET PO SCH (16:17)
[2019-04-21] MEDS: LORazepam 2 MG/1 ML VIAL IV PRN (18:27)
[2019-04-21] MEDS: INSULIN GLARGINE 100 UNIT/ML SUBCUT SCH (21:19)
[2019-04-21] MEDS: traZODone 50 MG TABLET PO SCH (21:22)
[2019-04-21] MEDS: DONEPEZIL 10 MG TABLET PO SCH (21:25)
[2019-04-21] MEDS: ENOXAPARIN 40 MG/0.4 ML SYRINGE SUBCUT SCH (21:32)
[2019-04-22] MEDS: methylPREDNISolone SOD SUC 125 MG/2 ML VIAL IV SCH (03:20)
[2019-04-22] MEDS: ALBUTEROL/IPRATROPIUM 3 ML NEB RESP TX SCH ×5 (03:48→19:15)
[2019-04-22 05:36] LABS: Basophils % 0.1 % (0.0-0.8); Hematocrit 28.8 VOL% (42.0-52.0); Hemoglobin 9.6 GM/DL (14.0-18.0); Immature Granulocytes % 3.1 %; Immature Granulocytes Absolute 0.51 #; Lymphocytes # 0.2 10*3/uL (1.4-4.0); Lymphocytes % 1.5 % (21.2-54.2); Mean Corpuscular HGB Conc 33.3 GM/DL (32-36); Mean Platelet Volume 9.7 FL (9.6-12.0); Monocytes % 3.4 % (1.7-12.7); Neutrophils % 91.9 % (38.7-73.9); Platelet Count 237 T/CUMM (130-400); Red Blood Count 3.31 MC/CUMM (3.8-5.5); Red Cell Distribution Width 17.8 % (9.3-17.3); White Blood Count 16.3 T/CUMM (4-12)
[2019-04-22 05:57] LABS: Band Neutrophils 2 % (0-10); Hypochromasia 1+; Lymphocytes 2 % (20-55); Microcytosis 1+; Segmented Neutrophils 94 % (50-85); Total Cells Counted 100
[2019-04-22 06:06] LABS: Calcium 9.4 MG/DL (8.5-10.1); Osmolality,Calculated 276.2 MOS/KG (273-304)
[2019-04-22] MEDS: ALBUMIN 25% 25 GM in PREMIX 1 EACH IV SCH ×2 (06:39→17:50)
[2019-04-22] MEDS: BUDESONIDE 0.5 MG/2 ML NEB RESP TX SCH ×2 (07:14→19:15)
[2019-04-22] MEDS: ARFORMOTEROL 15 MCG/2 ML NEB RESP TX SCH ×2 (07:21→19:15)
[2019-04-22] MEDS: DORNASE ALFA 2.5 MG/2.5 ML VIAL RESP TX SCH ×2 (07:28→19:31)
[2019-04-22] MEDS: POLYETHYLENE GLYCOL POWDER 17 GM PACK PO SCH ×2 (09:22→21:30)
[2019-04-22] MEDS: INSULIN REGULAR 100 UNIT/ML SUBCUT SCH ×4 (09:23→21:29)
[2019-04-22] MEDS: DOXYCYCLINE HYCLATE 50 MG CAPSULE PO SCH ×2 (09:24→21:30)
[2019-04-22] MEDS: TAMSULOSIN 0.4 MG CAPSULE PO SCH (09:24)
[2019-04-22] MEDS: glipiZIDE 5 MG TABLET PO SCH ×2 (09:25→17:48)
[2019-04-22] MEDS: allopurinoL 100 MG TABLET PO SCH (09:25)
[2019-04-22] MEDS: DILTIAZEM 60 MG TABLET PO SCH ×4 (09:26→21:32)
[2019-04-22] MEDS: THEOPHYLLINE ER (24 HR) 300 MG CAPSULE PO SCH (09:26)
[2019-04-22] MEDS: MONTELUKAST 10 MG TABLET PO SCH ×2 (09:26→21:31)
[2019-04-22] MEDS: CYCLOBENZAPRINE 10 MG TABLET PO PRN (09:26)
[2019-04-22] MEDS: POTASSIUM CHLORIDE 10 MEQ TABLET PO SCH ×2 (09:27→21:31)
[2019-04-22] MEDS: BISOPROLOL 5 MG TABLET PO SCH ×2 (09:27→21:33)
[2019-04-22] MEDS: SPIRONOLACTONE 25 MG TABLET PO SCH ×2 (09:29→21:32)
[2019-04-22] MEDS: PANTOPRAZOLE 40 MG TABLET PO SCH (09:29)
[2019-04-22] MEDS: FUROSEMIDE 20 MG TABLET PO SCH (09:29)
[2019-04-22] MEDS: GABAPENTIN 100 MG CAPSULE PO SCH ×3 (09:29→21:33)
[2019-04-22] MEDS: ACETAMINOPHEN 325 MG TABLET PO SCH ×2 (09:29→21:43)
[2019-04-22] MEDS: DOCUSATE SODIUM 100 MG CAPSULE PO SCH ×2 (09:30→21:33)
[2019-04-22] MEDS: metFORMIN 500 MG TABLET PO SCH ×2 (09:30→17:48)
[2019-04-22] MEDS: metOLazone 5 MG TABLET PO SCH (09:30)
[2019-04-22] MEDS: ASPIRIN EC 81 MG TABLET PO SCH (09:30)
[2019-04-22] MEDS: LACTULOSE 20 GM/30 ML UDCUP PO SCH ×2 (09:36→21:31)
[2019-04-22] MEDS: NYSTATIN CREAM 15 GM TUBE TOP SCH ×2 (09:37→21:37)
[2019-04-22] MEDS: MYLANTA/LIDO VISC/NYST 180 ML BOTTLE SWISH/SWAL SCH ×4 (09:37→21:33)
[2019-04-22] MEDS: AZITHROMYCIN 250 MG TABLET PO SCH (12:02)
[2019-04-22] MEDS: KETOROLAC 15 MG/1 ML VIAL IV PRN ×2 (14:46→21:39)
[2019-04-22] MEDS: FUROSEMIDE 20 MG/2 ML VIAL IV SCH (17:48)
[2019-04-22] MEDS: SERTRALINE 50 MG TABLET PO SCH (18:04)
[2019-04-22] MEDS: INSULIN GLARGINE 100 UNIT/ML SUBCUT SCH (21:28)
[2019-04-22] MEDS: ENOXAPARIN 40 MG/0.4 ML SYRINGE SUBCUT SCH (21:29)
[2019-04-22] MEDS: traZODone 50 MG TABLET PO SCH (21:31)
[2019-04-22] MEDS: DONEPEZIL 10 MG TABLET PO SCH (21:32)
[2019-04-23] MEDS: FUROSEMIDE 20 MG/2 ML VIAL IV SCH ×3 (00:43→17:36)
[2019-04-23] MEDS: ALBUMIN 25% 25 GM in PREMIX 1 EACH IV SCH ×4 (00:45→17:37)
[2019-04-23] MEDS: ALBUTEROL/IPRATROPIUM 3 ML NEB RESP TX SCH ×6 (01:00→19:05)
[2019-04-23 05:28] LABS: Basophils % 0.2 % (0.0-0.8); Hematocrit 27.2 VOL% (42.0-52.0); Hemoglobin 8.7 GM/DL (14.0-18.0); Immature Granulocytes % 3.5 %; Immature Granulocytes Absolute 0.47 #; Lymphocytes # 0.5 10*3/uL (1.4-4.0); Lymphocytes % 3.4 % (21.2-54.2); Mean Corpuscular Volume 90.1 FL (87-102); Mean Platelet Volume 9.9 FL (9.6-12.0); Monocytes % 6.4 % (1.7-12.7); Neutrophils % 86.5 % (38.7-73.9); Platelet Count 199 T/CUMM (130-400); Red Blood Count 3.02 MC/CUMM (3.8-5.5); Red Cell Distribution Width 18.3 % (9.3-17.3); White Blood Count 13.4 T/CUMM (4-12)
[2019-04-23 05:57] LABS: Osmolality,Calculated 286.1 MOS/KG (273-304)
[2019-04-23 06:10] LABS: Lymphocytes 2 % (20-55); Platelet Estimate Adequate; Segmented Neutrophils 92 % (50-85); Total Cells Counted 100
[2019-04-23 06:11] LABS: Hypochromasia 1+; Microcytosis 1+
[2019-04-23] MEDS: ARFORMOTEROL 15 MCG/2 ML NEB RESP TX SCH ×2 (07:10→19:05)
[2019-04-23] MEDS: DORNASE ALFA 2.5 MG/2.5 ML VIAL RESP TX SCH ×2 (07:10→19:05)
[2019-04-23] MEDS: BUDESONIDE 0.5 MG/2 ML NEB RESP TX SCH ×2 (07:10→19:05)
[2019-04-23] MEDS: INSULIN REGULAR 100 UNIT/ML SUBCUT SCH ×4 (08:15→21:56)
[2019-04-23] MEDS: POLYETHYLENE GLYCOL POWDER 17 GM PACK PO SCH ×2 (09:31→21:47)
[2019-04-23] MEDS: LACTULOSE 20 GM/30 ML UDCUP PO SCH ×2 (09:32→21:55)
[2019-04-23] MEDS: SPIRONOLACTONE 25 MG TABLET PO SCH ×2 (09:33→21:48)
[2019-04-23] MEDS: TAMSULOSIN 0.4 MG CAPSULE PO SCH (09:33)
[2019-04-23] MEDS: MONTELUKAST 10 MG TABLET PO SCH ×2 (09:33→21:49)
[2019-04-23] MEDS: predniSONE 20 MG TABLET PO SCH (09:33)
[2019-04-23] MEDS: ACETAMINOPHEN 325 MG TABLET PO SCH ×2 (09:33→21:48)
[2019-04-23] MEDS: allopurinoL 100 MG TABLET PO SCH (09:33)
[2019-04-23] MEDS: metFORMIN 500 MG TABLET PO SCH ×2 (09:34→17:32)
[2019-04-23] MEDS: glipiZIDE 5 MG TABLET PO SCH ×2 (09:34→17:32)
[2019-04-23] MEDS: BISOPROLOL 5 MG TABLET PO SCH ×2 (09:34→21:49)
[2019-04-23] MEDS: DOCUSATE SODIUM 100 MG CAPSULE PO SCH ×2 (09:34→21:47)
[2019-04-23] MEDS: GABAPENTIN 100 MG CAPSULE PO SCH ×3 (09:34→21:48)
[2019-04-23] MEDS: ASPIRIN EC 81 MG TABLET PO SCH (09:35)
[2019-04-23] MEDS: CYCLOBENZAPRINE 10 MG TABLET PO PRN (09:35)
[2019-04-23] MEDS: PANTOPRAZOLE 40 MG TABLET PO SCH (09:35)
[2019-04-23] MEDS: DILTIAZEM 60 MG TABLET PO SCH ×4 (09:35→21:47)
[2019-04-23] MEDS: metOLazone 5 MG TABLET PO SCH (09:35)
[2019-04-23] MEDS: POTASSIUM CHLORIDE 10 MEQ TABLET PO SCH ×2 (09:35→21:47)
[2019-04-23] MEDS: DOXYCYCLINE HYCLATE 50 MG CAPSULE PO SCH ×2 (09:36→21:46)
[2019-04-23] MEDS: NYSTATIN CREAM 15 GM TUBE TOP SCH ×2 (09:36→22:05)
[2019-04-23] MEDS: MYLANTA/LIDO VISC/NYST 180 ML BOTTLE SWISH/SWAL SCH ×4 (09:41→22:00)
[2019-04-23] MEDS: SERTRALINE 50 MG TABLET PO SCH (17:36)
[2019-04-23] MEDS: traZODone 50 MG TABLET PO SCH (21:46)
[2019-04-23] MEDS: DONEPEZIL 10 MG TABLET PO SCH (21:49)
[2019-04-23] MEDS: INSULIN GLARGINE 100 UNIT/ML SUBCUT SCH (21:56)
[2019-04-23] MEDS: ENOXAPARIN 40 MG/0.4 ML SYRINGE SUBCUT SCH (21:59)
[2019-04-24] MEDS: ALBUMIN 25% 25 GM in PREMIX 1 EACH IV SCH ×4 (01:21→16:12)
[2019-04-24] MEDS: FUROSEMIDE 20 MG/2 ML VIAL IV SCH ×3 (02:52→17:25)
[2019-04-24] MEDS: ALBUTEROL/IPRATROPIUM 3 ML NEB RESP TX SCH ×6 (03:11→19:31)
[2019-04-24 05:31] LABS: Basophils # 0.1 10*3/uL (0.0-0.2); Basophils % 0.5 % (0.0-0.8); Hematocrit 27.5 VOL% (42.0-52.0); Hemoglobin 8.6 GM/DL (14.0-18.0); Immature Granulocytes % 6.3 %; Immature Granulocytes Absolute 0.59 #; Lymphocytes # 0.5 10*3/uL (1.4-4.0); Lymphocytes % 4.9 % (21.2-54.2); Mean Corpuscular HGB Conc 31.3 GM/DL (32-36); Mean Corpuscular Volume 90.8 FL (87-102); Monocytes % 6.2 % (1.7-12.7); Neutrophils % 82.1 % (38.7-73.9); Platelet Count 179 T/CUMM (130-400); Red Blood Count 3.03 MC/CUMM (3.8-5.5); White Blood Count 9.4 T/CUMM (4-12)
[2019-04-24 05:48] LABS: Osmolality,Calculated 280.8 MOS/KG (273-304)
[2019-04-24 06:12] LABS: Hypochromasia 2+; Lymphocytes 3 % (20-55); Microcytosis 1+; Platelet Estimate Adequate; Segmented Neutrophils 92 % (50-85); Total Cells Counted 100
[2019-04-24] MEDS: ARFORMOTEROL 15 MCG/2 ML NEB RESP TX SCH ×2 (06:51→19:31)
[2019-04-24] MEDS: DORNASE ALFA 2.5 MG/2.5 ML VIAL RESP TX SCH ×2 (06:51→19:31)
[2019-04-24] MEDS: BUDESONIDE 0.5 MG/2 ML NEB RESP TX SCH ×2 (06:51→19:31)
[2019-04-24] MEDS: INSULIN REGULAR 100 UNIT/ML SUBCUT SCH ×4 (08:18→21:06)
[2019-04-24] MEDS: DOXYCYCLINE HYCLATE 50 MG CAPSULE PO SCH ×2 (08:19→20:26)
[2019-04-24] MEDS: POLYETHYLENE GLYCOL POWDER 17 GM PACK PO SCH ×2 (08:19→20:15)
[2019-04-24] MEDS: LACTULOSE 20 GM/30 ML UDCUP PO SCH ×2 (08:19→20:10)
[2019-04-24] MEDS: metFORMIN 500 MG TABLET PO SCH ×2 (08:21→16:12)
[2019-04-24] MEDS: MONTELUKAST 10 MG TABLET PO SCH ×2 (08:21→20:14)
[2019-04-24] MEDS: POTASSIUM CHLORIDE 10 MEQ TABLET PO SCH ×2 (08:21→20:14)
[2019-04-24] MEDS: ACETAMINOPHEN 325 MG TABLET PO SCH ×2 (08:21→20:26)
[2019-04-24] MEDS: ASPIRIN EC 81 MG TABLET PO SCH (08:21)
[2019-04-24] MEDS: metOLazone 5 MG TABLET PO SCH (08:21)
[2019-04-24] MEDS: BISOPROLOL 5 MG TABLET PO SCH ×2 (08:22→20:11)
[2019-04-24] MEDS: PANTOPRAZOLE 40 MG TABLET PO SCH (08:22)
[2019-04-24] MEDS: SPIRONOLACTONE 25 MG TABLET PO SCH ×2 (08:22→20:12)
[2019-04-24] MEDS: predniSONE 20 MG TABLET PO SCH (08:22)
[2019-04-24] MEDS: glipiZIDE 5 MG TABLET PO SCH ×2 (08:22→16:12)
[2019-04-24] MEDS: DOCUSATE SODIUM 100 MG CAPSULE PO SCH ×2 (08:23→20:13)
[2019-04-24] MEDS: allopurinoL 100 MG TABLET PO SCH (08:23)
[2019-04-24] MEDS: DILTIAZEM 60 MG TABLET PO SCH ×4 (08:23→20:13)
[2019-04-24] MEDS: NYSTATIN CREAM 15 GM TUBE TOP SCH ×2 (08:23→21:07)
[2019-04-24] MEDS: TAMSULOSIN 0.4 MG CAPSULE PO SCH (08:23)
[2019-04-24] MEDS: GABAPENTIN 100 MG CAPSULE PO SCH ×3 (08:23→20:14)
[2019-04-24] MEDS: MYLANTA/LIDO VISC/NYST 180 ML BOTTLE SWISH/SWAL SCH ×4 (08:25→20:26)
[2019-04-24] MEDS: AZITHROMYCIN 250 MG TABLET PO SCH (12:21)
[2019-04-24] MEDS: MEROPENEM 500 MG in SODIUM CHLORIDE 0.9% 100 ML IV SCH ×2 (14:54→17:25)
[2019-04-24] MEDS: SERTRALINE 50 MG TABLET PO SCH (16:13)
[2019-04-24] MEDS ORDERED: THEOPHYLLINE ER (24 HR) 200 MG CAPSULE PO SCH (17:00)
[2019-04-24] MEDS: INSULIN GLARGINE 100 UNIT/ML SUBCUT SCH (20:09)
[2019-04-24] MEDS: ENOXAPARIN 40 MG/0.4 ML SYRINGE SUBCUT SCH (20:10)
[2019-04-24] MEDS: traZODone 50 MG TABLET PO SCH (20:11)
[2019-04-24] MEDS: DONEPEZIL 10 MG TABLET PO SCH (20:12)
[2019-04-24 22:17] VITALS: BP 145/78
== END 2019-04-24 22:30 | disposition hospice, home (50) | DRG 981 ==
LOC: N.ED 10:17 → SUATTDRO 14:02 → N.EDINP 14:02 → N.CC 14:35 → N.TELES 03-29 13:20 → N.2E 04-13 17:52
PROVIDERS: ADMIT Internal Medicine; ATTEND Family Medicine

== ENCOUNTER 2019-04-28 06:09 | Observation (INO) ==
[2019-04-28] MEDS ORDERED: fentaNYL 100 MCG/2 ML VIAL IV STA (07:41)
[2019-04-28] MEDS ORDERED: ONDANSETRON 4 MG/2 ML VIAL IV STA (07:41)
[2019-04-28] MEDS ORDERED: guaiFENesin/CODEINE 5 ML LIQUID PO PRN (09:11)
[2019-04-28] MEDS ORDERED: LACTULOSE 20 GM/30 ML UDCUP PO PRN (09:11)
[2019-04-28] MEDS ORDERED: SKIN HEALING OINT (AQUAPHOR) 50 GM TUBE TOP PRN (09:11)
[2019-04-28 09:19] LABS: Basophils # 0.1 10*3/uL (0.0-0.2); Basophils % 0.7 % (0.0-0.8); Eosinophils # 0.1 10*3/uL (0.0-0.87); Eosinophils % 0.9 % (0.00-10.9); Hematocrit 32.9 VOL% (42.0-52.0); Hemoglobin 10.2 GM/DL (14.0-18.0); Immature Granulocytes % 11.2 %; Immature Granulocytes Absolute 1.25 #; Lymphocytes # 1.2 10*3/uL (1.4-4.0); Lymphocytes % 10.5 % (21.2-54.2); Mean Corpuscular Volume 93.2 FL (87-102); Mean Platelet Volume 9.3 FL (9.6-12.0); Monocytes % 7.1 % (1.7-12.7); Neutrophils % 69.6 % (38.7-73.9); Platelet Count 270 T/CUMM (130-400); Red Blood Count 3.53 MC/CUMM (3.8-5.5); Red Cell Distribution Width 17.7 % (9.3-17.3); White Blood Count 11.2 T/CUMM (4-12)
[2019-04-28 09:30] LABS: ABG Base Excess 9.1 MMOL/L (-2.5-2.5); ABG HCO3 32.9 MMOL/L (20-26); ABG Oxygen Saturation 98.2 % (95-100); ABG PCO2 64.4 MM HG (35-48); ABG PH 7.362 (7.35-7.45); ABG TCO2 33.7 MMOL/L (23-27); Allen Test Positive
[2019-04-28] MEDS ORDERED: PANTOPRAZOLE 40 MG TABLET PO SCH (09:30)
[2019-04-28] MEDS ORDERED: DOXYCYCLINE HYCLATE 50 MG CAPSULE PO SCH (09:30)
[2019-04-28] MEDS ORDERED: DORNASE ALFA 2.5 MG/2.5 ML VIAL RESP TX SCH (09:30)
[2019-04-28 09:36] LABS: Osmolality,Calculated 263.5 MOS/KG (273-304)
[2019-04-28] MEDS ORDERED: ONDANSETRON 4 MG/2 ML VIAL IV PRN (09:36)
[2019-04-28 09:43] LABS: Band Neutrophils 2 % (0-10); Hypochromasia 1+; Lymphocytes 14 % (20-55); Microcytosis 1+; Platelet Estimate Adequate; Segmented Neutrophils 80 % (50-85); Total Cells Counted 100
[2019-04-28] MEDS ORDERED: SODIUM PHOSPHATE ENEMA 133 ML BOTTLE RECTAL PRN (10:29)
[2019-04-28] MEDS: ALBUTEROL/IPRATROPIUM 3 ML NEB RESP TX SCH ×4 (10:55→23:01)
[2019-04-28] MEDS: INSULIN REGULAR 100 UNIT/ML SUBCUT SCH ×3 (12:14→20:55)
[2019-04-28] MEDS: CYCLOBENZAPRINE 10 MG TABLET PO PRN (12:35)
[2019-04-28] MEDS: SULFAMETHOX/TRIMETHOPRIM 800-160 MG TABLET PO SCH ×2 (12:35→20:52)
[2019-04-28] MEDS: DILTIAZEM 60 MG TABLET PO SCH ×3 (12:35→20:54)
[2019-04-28] MEDS: MYLANTA/LIDO VISC/NYST 180 ML BOTTLE SWISH/SWAL SCH ×3 (12:37→20:55)
[2019-04-28] MEDS: metFORMIN 500 MG TABLET PO SCH (16:31)
[2019-04-28] MEDS: GABAPENTIN 100 MG CAPSULE PO SCH ×2 (16:31→20:52)
[2019-04-28] MEDS: THEOPHYLLINE ER (24 HR) 200 MG CAPSULE PO SCH (16:31)
[2019-04-28] MEDS: SERTRALINE 50 MG TABLET PO SCH (16:32)
[2019-04-28] MEDS: glipiZIDE 5 MG TABLET PO SCH (16:32)
[2019-04-28] MEDS: ARFORMOTEROL 15 MCG/2 ML NEB RESP TX SCH (19:17)
[2019-04-28] MEDS: BUDESONIDE 0.5 MG/2 ML NEB RESP TX SCH (19:17)
[2019-04-28] MEDS: MONTELUKAST 10 MG TABLET PO SCH (20:52)
[2019-04-28] MEDS: traZODone 50 MG TABLET PO SCH (20:52)
[2019-04-28] MEDS: BISOPROLOL 5 MG TABLET PO SCH (20:52)
[2019-04-28] MEDS: POTASSIUM CHLORIDE 10 MEQ TABLET PO SCH (20:52)
[2019-04-28] MEDS: DONEPEZIL 5 MG TABLET PO SCH (20:54)
[2019-04-28] MEDS: INSULIN GLARGINE 100 UNIT/ML SUBCUT SCH (20:55)
[2019-04-28] MEDS: DOCUSATE SODIUM 100 MG CAPSULE PO SCH (20:55)
[2019-04-28] MEDS: NYSTATIN CREAM 15 GM TUBE TOP SCH (20:58)
[2019-04-28] MEDS: POLYETHYLENE GLYCOL POWDER 17 GM PACK PO SCH (20:58)
[2019-04-29] MEDS: ALBUTEROL/IPRATROPIUM 3 ML NEB RESP TX SCH ×6 (02:18→23:27)
[2019-04-29] MEDS ORDERED: ACETAMINOPHEN 325 MG TABLET PO PRN (05:34)
[2019-04-29] MEDS ORDERED: DEXTROSE 10% 250 ML BAG IV PRN (05:50)
[2019-04-29] MEDS ORDERED: DEXTROSE 10% 250 ML IV ONE (05:50)
[2019-04-29] MEDS: PANTOPRAZOLE 40 MG TABLET PO SCH (05:59)
[2019-04-29 06:34] LABS: Basophils # 0.1 10*3/uL (0.0-0.2); Basophils % 0.8 % (0.0-0.8); Eosinophils % 0.2 % (0.00-10.9); Hematocrit 28.2 VOL% (42.0-52.0); Immature Granulocytes % 11.1 %; Immature Granulocytes Absolute 1.11 #; Lymphocytes # 1.1 10*3/uL (1.4-4.0); Lymphocytes % 11.3 % (21.2-54.2); Mean Corpuscular HGB Conc 31.9 GM/DL (32-36); Mean Corpuscular Volume 89.5 FL (87-102); Mean Platelet Volume 9.3 FL (9.6-12.0); Neutrophils % 68.6 % (38.7-73.9); Platelet Count 277 T/CUMM (130-400); Red Blood Count 3.15 MC/CUMM (3.8-5.5); Red Cell Distribution Width 17.4 % (9.3-17.3)
[2019-04-29 06:56] LABS: Albumin 3.9 G/DL (3.4-5.0); Bilirubin,Total 1.5 MG/DL (0.2-1.0); Calcium 9.2 MG/DL (8.5-10.1); Osmolality,Calculated 263.5 MOS/KG (273-304); Total Protein 6.2 G/DL (6.4-8.3)
[2019-04-29 07:01] LABS: Band Neutrophils 2 % (0-10); Eosinophils 2 % (0-10); Hypochromasia 1+; Lymphocytes 16 % (20-55); Microcytosis 1+; Platelet Estimate Adequate; Segmented Neutrophils 72 % (50-85); Total Cells Counted 100
[2019-04-29] MEDS: ARFORMOTEROL 15 MCG/2 ML NEB RESP TX SCH ×2 (07:40→18:56)
[2019-04-29] MEDS: BUDESONIDE 0.5 MG/2 ML NEB RESP TX SCH ×2 (07:41→18:59)
[2019-04-29] MEDS: INSULIN REGULAR 100 UNIT/ML SUBCUT SCH ×4 (07:49→22:05)
[2019-04-29] MEDS: MYLANTA/LIDO VISC/NYST 180 ML BOTTLE SWISH/SWAL SCH ×4 (08:32→20:12)
[2019-04-29] MEDS: glipiZIDE 5 MG TABLET PO SCH (08:32)
[2019-04-29] MEDS ORDERED: AZITHROMYCIN 250 MG TABLET PO SCH (09:00)
[2019-04-29] MEDS ORDERED: ENOXAPARIN 40 MG/0.4 ML SYRINGE SUBCUT SCH (09:00)
[2019-04-29] MEDS: metFORMIN 500 MG TABLET PO SCH ×2 (09:28→17:04)
[2019-04-29] MEDS ORDERED: DEXAMETHASONE 10 MG/1 ML VIAL ONE (09:30)
[2019-04-29] MEDS ORDERED: DEXAMETHASONE 4 MG/1 ML VIAL ONE (09:31)
[2019-04-29] MEDS: LACTATED RINGERS 1,000 ML IV SCH ×2 (10:00→11:56)
[2019-04-29] MEDS ORDERED: KETAMINE 500 MG/10 ML VIAL ONE (10:27)
[2019-04-29] MEDS ORDERED: MIDAZOLAM 2 MG/2 ML VIAL ONE (10:27)
[2019-04-29] MEDS: BISOPROLOL 5 MG TABLET PO SCH ×2 (10:54→20:09)
[2019-04-29] MEDS: THEOPHYLLINE ER (24 HR) 200 MG CAPSULE PO SCH ×2 (11:09→17:04)
[2019-04-29] MEDS: GABAPENTIN 100 MG CAPSULE PO SCH ×3 (11:09→20:09)
[2019-04-29] MEDS: TAMSULOSIN 0.4 MG CAPSULE PO SCH (11:09)
[2019-04-29] MEDS: SULFAMETHOX/TRIMETHOPRIM 800-160 MG TABLET PO SCH ×2 (11:09→20:07)
[2019-04-29] MEDS: DOCUSATE SODIUM 100 MG CAPSULE PO SCH ×2 (11:10→20:09)
[2019-04-29] MEDS: POLYETHYLENE GLYCOL POWDER 17 GM PACK PO SCH ×2 (11:11→20:15)
[2019-04-29] MEDS: POTASSIUM CHLORIDE 10 MEQ TABLET PO SCH ×2 (11:12→20:07)
[2019-04-29] MEDS: ASPIRIN EC 81 MG TABLET PO SCH (11:12)
[2019-04-29] MEDS: allopurinoL 100 MG TABLET PO SCH (11:12)
[2019-04-29] MEDS: predniSONE 20 MG TABLET PO SCH (11:12)
[2019-04-29] MEDS: DILTIAZEM 60 MG TABLET PO SCH ×4 (11:13→20:07)
[2019-04-29] MEDS: MONTELUKAST 10 MG TABLET PO SCH ×2 (11:13→20:12)
[2019-04-29] MEDS: NYSTATIN CREAM 15 GM TUBE TOP SCH ×2 (11:13→20:17)
[2019-04-29] MEDS: SERTRALINE 50 MG TABLET PO SCH (17:04)
[2019-04-29] MEDS: CYCLOBENZAPRINE 10 MG TABLET PO PRN (17:04)
[2019-04-29 17:44] LABS: Apearance,Urine CLEAR (Clear); Bilirubin,Urine Negative (Negative); Blood, Urine Negative (Negative); Glucose,Urine (UA) >=500 mg/dL (Negative); Hyaline Casts,Urine 1 /LPF (0-3); Ketones,Urine Negative (Negative); Mucus,Urine Occasional /LPF (Occasional); Nitrite,Urine Negative (Negative); Protein,Urine Negative; RBC,Urine 3 /HPF (0-4); Squamous Epithelial Cell,Urine Occasional /HPF (0-10); Urine Color Yellow (Yellow); Urine Specific Gravity 1.011 (1.001-1.035); Urine Urobilinogen < 2.0 EU/DL (0.2-1.0); WBC,Urine 1 /HPF (0-6)
[2019-04-29] MEDS: traZODone 50 MG TABLET PO SCH (20:13)
[2019-04-29] MEDS: DONEPEZIL 5 MG TABLET PO SCH (20:13)
[2019-04-29] MEDS: INSULIN GLARGINE 100 UNIT/ML SUBCUT SCH (22:05)
[2019-04-30] MEDS: ALBUTEROL/IPRATROPIUM 3 ML NEB RESP TX SCH ×3 (03:35→11:25)
[2019-04-30] MEDS: PANTOPRAZOLE 40 MG TABLET PO SCH (06:44)
[2019-04-30 07:05] LABS: Basophils % 0.1 % (0.0-0.8); Hematocrit 25.2 VOL% (42.0-52.0); Hemoglobin 8.3 GM/DL (14.0-18.0); Immature Granulocytes % 5.4 %; Immature Granulocytes Absolute 0.55 #; Lymphocytes # 0.8 10*3/uL (1.4-4.0); Lymphocytes % 7.6 % (21.2-54.2); Mean Corpuscular HGB Conc 32.9 GM/DL (32-36); Mean Corpuscular Volume 88.7 FL (87-102); Mean Platelet Volume 8.8 FL (9.6-12.0); Monocytes % 7.6 % (1.7-12.7); Neutrophils % 79.3 % (38.7-73.9); Platelet Count 275 T/CUMM (130-400); Red Blood Count 2.84 MC/CUMM (3.8-5.5); Red Cell Distribution Width 16.6 % (9.3-17.3); White Blood Count 10.2 T/CUMM (4-12)
[2019-04-30 07:25] LABS: Hypochromasia 2+; Lymphocytes 7 % (20-55); Microcytosis 1+; Platelet Estimate Adequate; Segmented Neutrophils 88 % (50-85); Total Cells Counted 100
[2019-04-30] MEDS: ARFORMOTEROL 15 MCG/2 ML NEB RESP TX SCH (07:30)
[2019-04-30] MEDS: BUDESONIDE 0.5 MG/2 ML NEB RESP TX SCH (07:30)
[2019-04-30 07:32] LABS: Calcium 9.3 MG/DL (8.5-10.1); Osmolality,Calculated 276.4 MOS/KG (273-304)
[2019-04-30] MEDS: THEOPHYLLINE ER (24 HR) 200 MG CAPSULE PO SCH (09:26)
[2019-04-30] MEDS: DILTIAZEM 60 MG TABLET PO SCH ×2 (09:26→13:43)
[2019-04-30] MEDS: DOCUSATE SODIUM 100 MG CAPSULE PO SCH (09:26)
[2019-04-30] MEDS: SULFAMETHOX/TRIMETHOPRIM 800-160 MG TABLET PO SCH (09:26)
[2019-04-30] MEDS: metFORMIN 500 MG TABLET PO SCH (09:26)
[2019-04-30] MEDS: MYLANTA/LIDO VISC/NYST 180 ML BOTTLE SWISH/SWAL SCH ×2 (09:26→11:58)
[2019-04-30] MEDS: ASPIRIN EC 81 MG TABLET PO SCH (09:26)
[2019-04-30] MEDS: predniSONE 20 MG TABLET PO SCH (09:27)
[2019-04-30] MEDS: GABAPENTIN 100 MG CAPSULE PO SCH ×2 (09:27→14:49)
[2019-04-30] MEDS: POLYETHYLENE GLYCOL POWDER 17 GM PACK PO SCH (09:27)
[2019-04-30] MEDS: TAMSULOSIN 0.4 MG CAPSULE PO SCH (09:27)
[2019-04-30] MEDS: MONTELUKAST 10 MG TABLET PO SCH (09:27)
[2019-04-30] MEDS: POTASSIUM CHLORIDE 10 MEQ TABLET PO SCH (09:27)
[2019-04-30] MEDS: allopurinoL 100 MG TABLET PO SCH (09:27)
[2019-04-30] MEDS: BISOPROLOL 5 MG TABLET PO SCH (09:27)
[2019-04-30] MEDS: NYSTATIN CREAM 15 GM TUBE TOP SCH (09:27)
[2019-04-30] MEDS: INSULIN REGULAR 100 UNIT/ML SUBCUT SCH ×2 (10:14→12:06)
[2019-04-30 12:50] VITALS: BP 142/77
[2019-05-01] MEDS ORDERED: ALENDRONATE PO SCH (09:00)
[2019-05-02] MEDS ORDERED: ERGOCALCIFEROL 50,000 UNIT CAPSULE PO SCH (09:00)
== END 2019-04-30 16:07 | disposition hospice, home (50) ==
LOC: EDBD → EDUNIT# → N.ED 06:09 → N.EDINP 06:09 → SUPCPDRO 09:08 → N.EDINP 10:04 → N.2E 10:09
PROVIDERS: ADMIT Family Medicine; ATTEND Family Medicine